=== PATIENT | female | born 1980 | race Caucasian/White ===

== ENCOUNTER → 2022-09-28 | Outpatient (OUT) | payer BC, SELFPAY ==
[2022-09-28 16:23] LABS: Lactate Dehydrogenase 185 U/L (81-234)
[2022-10-07 14:15] LABS: CEA 2.7 ng/mL (0.0-4.7)
== END ==
LOC: LAB 15:48
PROVIDERS: Visit Provider Obstetrics & Gynecology
DX: N83.292 Other ovarian cyst, left side (principal)
CPT/HCPCS: 36415; 82105; 82378; 83615; 84702; 86304

== ENCOUNTER 2022-10-05 16:30 | Outpatient (REF) | payer BC, SELFPAY | END 2022-10-05 16:31 | disposition home or self-care (01) | LOC: LAB 16:30 | PROVIDERS: Visit Provider Obstetrics & Gynecology | DX: N92.0 Excessive and frequent menstruation with regular cycle (principal) | CPT/HCPCS: 88305 ==

== ENCOUNTER 2022-10-19 13:09 | Outpatient (OUT) | payer BC, SELFPAY ==
--- NOTE | 2022-10-19 14:20 | XR_ITS ---
[address] [address] Patient Name: SUAD SULLIVAN MRN: [id number] date: 1980 Sex: F Assigned Patient Location: [facility] Current Patient Location: [facility] Accession/Order Number: [id number] Exam Date: 10/19/2022 14:40 Report Date: 10/19/2022 14:58 At the request of: NOE BLACKMON Procedure: XR chest 2V EXAM: XR chest 2V HISTORY: pre op exam COMPARISON: 08/24/2016 TECHNIQUE: Upright PA and lateral chest x-ray FINDINGS: The heart is near the upper limits of normal in size. No acute infiltrate, effusion or pneumothorax is identified. Mild degenerative changes are seen in the spine. IMPRESSION: No acute infiltrate or evidence of cardiac decompensation. The overall appearance of the chest is unchanged. Electronically authenticated by: TYRON FISHMAN Date: 10/19/2022 14:58
--- NOTE | 2022-10-19 14:20 | ECG_ITS ---
The [facility] Test Date: 2022-10-19 Pat Name: Samara Omer Department: Room: - Gender: Female Rn Mental Health: : 1980 Requested By: NOE BLACKMON Order Number: [id number] Reading MD: KAYA DELATORRE Measurements Intervals [place] Rate: 64 P: 35 OK: 200 QRS: 21 QRSD: 97 T: 11 QT: 387 QTc: 402 Interpretive Statements SINUS RHYTHM Low voltage across the precordium No previous ECG available for comparison Electronically Signed On 10-20-2022 7:02:35 EDT by KAYA DELATORRE
[2022-10-19 14:41] LABS: Basophils Percent Auto 0.5 % (0.2-2.0); Eosinophils Absolute Auto 0.2 10^3/uL (0.0-0.7); Eosinophils Percent Auto 1.7 % (0.9-7.0); Hematocrit 38.2 % (36.0-48.0); Hemoglobin 12.5 g/dL (12.0-16.0); Immature Granulocytes Abs Auto 0.03 10^3/uL (0.00-0.03); Immature Granulocytes Pct Auto 0.3 % (0.0-0.5); Lymphocytes Absolute Auto 3.1 10^3/uL (1.2-3.8); Lymphocytes Percent Auto 35.2 % (20.5-60.0); Mean Corpuscular HGB Conc 32.7 g/dL (29.9-35.2); Mean Corpuscular Hemoglobin 26.7 pg (26.7-34.0); Mean Corpuscular Volume 81.6 fL (81.0-99.0); Monocytes Absolute Auto 0.5 10^3/uL (0.3-0.8); Monocytes Percent Auto 5.7 % (1.7-12.0); Neutrophils Percent Auto 56.6 % (43.0-75.0); Platelet Count 322 10^3/uL (150-450); Red Blood Count 4.68 10^6/uL (4.20-5.40); White Blood Count 8.9 10^3/uL (4.0-11.0)
[2022-10-19 15:02] LABS: Alanine Aminotransferase 30 U/L (14-59); Albumin Globulin Ratio 0.9; Albumin Level 3.7 g/dL (3.4-5.0); Alkaline Phosphatase 109 U/L (46-116); Aspartate Amino Transferase 17 U/L (15-37); BUN Creatinine Ratio 18.6; Bilirubin Direct <0.1 mg/dL (0.0-0.2); Bilirubin Total 0.2 mg/dL (0.2-1.0); Calcium 9.3 mg/dL (8.5-10.1); Carbon Dioxide 28.5 mmol/L (21.0-32.0); Chloride 103 mmol/L (98-107); Estimated GFR (African America >60 (>=60); Estimated GFR (Non-African Ame >60 (>=60); Globulin 4.2 g/dL; Glucose 113 mg/dL (74-106); Potassium 4.5 mmol/L (3.5-5.1); Sodium 138 mmol/L (136-145); Total Protein 7.9 g/dL (6.4-8.2)
[2022-10-19 15:21] LABS: Partial Thromboplastin Time 30.5 sec (22.3-36.2); Prothrombin Time 9.7 sec (9.0-11.6)
[2022-10-19 15:33] LABS: INR <0.93
== END 2022-10-19 13:10 | disposition home or self-care (01) ==
LOC: PST 13:09
PROVIDERS: Obstetrics & Gynecology
DX: Z01.812 Encounter for preprocedural laboratory examination (principal); Z01.810 Encounter for preprocedural cardiovascular examination; Z01.811 Encounter for preprocedural respiratory examination; N92.1 Excessive and frequent menstruation with irregular cycle; R10.2 Pelvic and perineal pain; N94.10 Unspecified dyspareunia; N94.6 Dysmenorrhea, unspecified
CPT/HCPCS: 36415; 71046; 80048; 80076; 85025; 85610; 85730; 93005

== ENCOUNTER 2022-10-28 12:21 | Inpatient (IN) | payer BC, SELFPAY ==
[2022-10-19 13:45] VITALS: PULSE 74; TEMP 36.8; O2SAT 97; BMI 51.4
[2022-10-28] VITALS (12 sets, daily range): BP systolic 93–140; BP diastolic 51–80; PULSE 75–93; RESP 18–28; TEMP 36.3–36.6; O2SAT 80–98; BMI 51.4; BMI 51.9
[2022-10-28 09:47] LABS: Basophils Percent Auto 0.3 % (0.2-2.0); Eosinophils Absolute Auto 0.1 10^3/uL (0.0-0.7); Eosinophils Percent Auto 1.1 % (0.9-7.0); Hematocrit 38.8 % (36.0-48.0); Hemoglobin 12.6 g/dL (12.0-16.0); Immature Granulocytes Abs Auto 0.02 10^3/uL (0.00-0.03); Immature Granulocytes Pct Auto 0.2 % (0.0-0.5); Lymphocytes Absolute Auto 3.4 10^3/uL (1.2-3.8); Lymphocytes Percent Auto 32.9 % (20.5-60.0); Mean Corpuscular HGB Conc 32.5 g/dL (29.9-35.2); Mean Corpuscular Hemoglobin 26.6 pg (26.7-34.0); Mean Corpuscular Volume 81.9 fL (81.0-99.0); Mean Platelet Volume 9.1 fL (9.5-13.5); Monocytes Absolute Auto 0.6 10^3/uL (0.3-0.8); Monocytes Percent Auto 5.8 % (1.7-12.0); Neutrophils Absolute Auto 6.2 10^3/uL (1.4-6.5); Neutrophils Percent Auto 59.7 % (43.0-75.0); Platelet Count 332 10^3/uL (150-450); Red Blood Count 4.74 10^6/uL (4.20-5.40); Red Cell Distribution Width 14.3 % (11.0-15.0); White Blood Count 10.4 10^3/uL (4.0-11.0)
[2022-10-28 10:09] LABS: HCG Quantitative <1 mIU/mL
[2022-10-28] MEDS: LACTATED RINGER'S SOLUTION 1,000 ML 50 ML IV (10:23)
[2022-10-28] MEDS: SCOPOLAMINE 1 EACH PATCH.TD.3 1 PATCH TD (10:41)
[2022-10-28] MEDS: CEFAZOLIN SODIUM/DEXTROSE,ISO 2 GM/50 ML PIGGYBACK IV ×3 (11:02→23:37)
--- NOTE | 2022-10-28 12:45 | PC.NURSE ---
ROBOT ASSISTED LAPROSCOPIC HYSTERECTOMY CHANGED TO AN OPEN HYSTERECTOMY. DR BLACKMON WENT OUT TO UPDATE FAMILY. INCISIONS WAS MADE AT 1221 PM.
[2022-10-28] MEDS: LACTATED RINGER'S SOLUTION 1,000 ML 1000 ML IV ×2 (13:31→14:55)
--- NOTE | 2022-10-28 15:45 | PC.NURSE ---
pt's O2 decreased to 3L at this time
[2022-10-28] MEDS: LACTATED RINGER'S SOLUTION 1,000 ML 125 ML IV ×2 (15:52→23:37)
[2022-10-28] MEDS: SIMETHICONE 80 MG TAB.CHEW PO (17:19)
[2022-10-28] MEDS: PROMETHAZINE HCL 25 MG/ML VIAL 12.5 MG IV (17:19)
--- NOTE | 2022-10-28 21:18 | RESP.RT ---
Sp02 98% on 1L nasal cannula, placed pt on room air at this time
[2022-10-28] MEDS: KETOROLAC TROMETHAMINE 30 MG/ML VIAL IVP (21:44)
[2022-10-28] MEDS: DOCUSATE SODIUM 100 MG CAPSULE PO (23:36)
[2022-10-28] MEDS: TEMAZEPAM 15 MG CAPSULE 30 MG PO (23:38)
[2022-10-29 04:30] VITALS: O2SAT 94
[2022-10-29 04:35] VITALS: BP 126/64; PULSE 79; RESP 16; TEMP 36.4; O2SAT 90
[2022-10-29 05:32] LABS: Basophils Percent Auto 0.2 % (0.2-2.0); Hematocrit 32.1 % (36.0-48.0); Hemoglobin 10.4 g/dL (12.0-16.0); Immature Granulocytes Abs Auto 0.05 10^3/uL (0.00-0.03); Immature Granulocytes Pct Auto 0.4 % (0.0-0.5); Lymphocytes Absolute Auto 2.2 10^3/uL (1.2-3.8); Lymphocytes Percent Auto 17.7 % (20.5-60.0); Mean Corpuscular HGB Conc 32.4 g/dL (29.9-35.2); Mean Corpuscular Hemoglobin 26.6 pg (26.7-34.0); Mean Corpuscular Volume 82.1 fL (81.0-99.0); Mean Platelet Volume 9.7 fL (9.5-13.5); Monocytes Absolute Auto 0.9 10^3/uL (0.3-0.8); Monocytes Percent Auto 7.3 % (1.7-12.0); Neutrophils Absolute Auto 9.2 10^3/uL (1.4-6.5); Neutrophils Percent Auto 74.4 % (43.0-75.0); Platelet Count 328 10^3/uL (150-450); Red Blood Count 3.91 10^6/uL (4.20-5.40); Red Cell Distribution Width 14.6 % (11.0-15.0); White Blood Count 12.4 10^3/uL (4.0-11.0)
[2022-10-29 05:52] LABS: Estimated GFR (African America >60 (>=60); Estimated GFR (Non-African Ame >60 (>=60)
[2022-10-29] MEDS: MAGNESIUM HYDROXIDE 2,400 MG/10 ML ORAL.SUSP 2400 MG PO (09:25)
[2022-10-29] MEDS: SIMETHICONE 80 MG TAB.CHEW PO (09:25)
[2022-10-29] MEDS: IBUPROFEN 400 MG TABLET 800 MG PO ×2 (09:25→16:47)
[2022-10-29 10:26] VITALS: O2SAT 95
--- NOTE | 2022-10-29 13:59 | PM.ONB ---
Brief Operative Note Date of procedure: 10/29/22 Pre-op diagnosis: enlarged uterus, uterine fibroids, extensive endometriosis Post-op diagnosis: same Procedure: DOMINIC BSO WITH CYSTOSCOPY PROCEDURE: Patient was taken back to the Operating Room where she was given general anesthesia without difficulty. She was then prepped and draped in the normal sterile fashion. A Pfannenstiel skin incision was then made 2 cm above the symphysis and pubis and carried down to underlying rectus fascia using a Bovie. The fascia was incised in the midline and extended bilaterally using Ramírez scissors. Two Antonio clamps were placed on the superior aspect of the fascia and dissected off the underlying rectus muscle. The same was performed on the inferior aspect as well. The muscle was then in the midline. The peritoneum was identified and entered bluntly. Peritoneum was then extended superiorly and inferiorly with good visualization of the bladder. An O'Moxqrzmo-Y-Fbwyxb retractor was placed into the patient's abdomen. The bowel was packed away with moist laparotomy sponges and the bladder blade was inserted. A Leahey tenaculum was placed on the patient's uterus and used for retraction. LigaSure apparatus was then used to come across the uteroovarian ligament on the patient's right side which was then cauterized and transected. This was carried down serially through the broad ligament and across the round ligament. The bladder flap was then created using the Metzenbaum scissors, and the bladder was easily dissected off the patient's lower uterine segment. A curved Heena was placed across the uterine artery on the right side which was clamped, transected, and suture ligated using #0 Monocryl. This was performed on the contralateral side as well. The bladder was further dissected and a Zeppelin clamp was then placed across the uterosacral and cardinal ligaments. This was transected and suture ligated using #0 Monocryl. This was performed on the contralateral side as well. The uterus was then amputated using Jorgensonscissors. The patient's cuff was closed using #0 PDS in a running locked fashion and this was transfixed to the ipsilateral uterosacral and cardinal ligaments. Excellent hemostasis was assured. The patient's abdomen was copiously irrigated using warm saline. Cystoscopy was performed. Bladder was intact. Efflux was noted from both ostia. Cystoscope was removed. After excellent hemostasis was assured, all instruments were removed from the patient's abdomen. The patient's peritoneum was closed using 3-0 Vicryl in a running fashion. The patient's fascia was closed using #0 Vicryl in a running fashion. The patient's skin was closed using scott. The patient tolerated the procedure well. Sponge, lap, and needle counts were correct times two. Patient taken to the Recovery Room in stable condition. please note robotic hysterectomy was attempted and aborted dt size of uterus and extensive endometriosis with adhesions Surgeon: Markus Vega [employer] Associate: Tish Alicia Estimated blood loss (mL): 700 Pathology: other (uterus and cervix) Condition: stable Disposition: PACU
--- NOTE | 2022-11-02 16:11 | CM.DCFOLLOWU ---
Person spoke with: patient How are you feeling? good How is your pain? pain under control Did you understand your discharge instructions? yes Do you have any questions about your discharge instructions? no Were you given any prescriptions at discharge? yes Were you able to get your prescriptions filled? yes Do you understand how to take your medications as ordered? yes Do you have any questions about your follow up appointment and do you plan to keep your follow up appointment? follow up scheduled for TuesdayNovember 08 Is there anything else that you would like to discuss? no Questions/Comments/Concerns/Other: Only concern was she was not able to get her pain meds for about an hour due to a chart mix up.
--- NOTE | 2022-11-03 07:34 | PC.NURSE ---
PATIENT HAD A 16 [address] JAIMES CATHETER INSERTED AT THE BEGINNING OF THE CASE. PATIENT HAD CATHETER IN PLACE UPON LEAVING THE OR PER SURGEONS ORDERS.
--- NOTE | 2022-11-19 | DS_ITS ---
DISCHARGE DATE: ??11/19/2022 PRIMARY DIAGNOSES: 1.? Enlarged uterus. 2.? Uterine fibroids. 3.? Extensive endometriosis. PROCEDURE:? Total abdominal hysterectomy with bilateral salpingo-oophorectomy with cystoscopy. HOSPITAL COURSE:? As expected.? Please see chart for full details.? LABORATORY DATA:? Please see chart. COMPLICATIONS:? None. DISCHARGE CONDITION:? Stable. CONSULTATION:? Anesthesia. DISCHARGE INSTRUCTIONS: 1.? Diet:? Regular. 2.? Medications: a.? Percocet 5/325 one to two p.o. every 4-6 hours p.r.n. pain. b.? Motrin 800 one p.o. every 8 hours p.r.n. pain. 3.? Followup in one week. Restrictions:? Pelvic rest for 6 weeks.? No heavy lifting.? May drive when pain free and no longer on narcotics. [facility]
== END 2022-10-29 17:30 | disposition home or self-care (01) | DRG 742 ==
LOC: MS 10-29 14:20 → SURGOUT 11-02 08:48 → MS 11-02 08:48
PROVIDERS: Admitting Provider Obstetrics & Gynecology; Visit Provider Obstetrics & Gynecology
PROC: 0UT90ZZ Resection of Uterus, Open Approach (ICD-10-PCS; principal; 2022-10-28 11:00)
DX: D25.9 Leiomyoma of uterus, unspecified (principal); Z68.43 Body mass index [BMI] 50.0-59.9, adult; N80.9 Endometriosis, unspecified; Z98.51 Tubal ligation status; Z98.890 Other specified postprocedural states; Z99.89 Dependence on other enabling machines and devices; J40 Bronchitis, not specified as acute or chronic; I10 Essential (primary) hypertension; G54.0 Brachial plexus disorders; G62.9 Polyneuropathy, unspecified; I73.9 Peripheral vascular disease, unspecified; K21.9 Gastro-esophageal reflux disease without esophagitis; E66.01 Morbid (severe) obesity due to excess calories; D64.9 Anemia, unspecified; F32.A Depression, unspecified; F41.9 Anxiety disorder, unspecified; N92.1 Excessive and frequent menstruation with irregular cycle; N94.10 Unspecified dyspareunia; N94.6 Dysmenorrhea, unspecified; R10.2 Pelvic and perineal pain; Z83.3 Family history of diabetes mellitus; Z80.9 Family history of malignant neoplasm, unspecified; Z82.49 Family history of ischemic heart disease and other diseases of the circulatory system; Z87.891 Personal history of nicotine dependence; Z88.8 Allergy status to other drugs, medicaments and biological substances; Z79.1 Long term (current) use of non-steroidal anti-inflammatories (NSAID); Z79.899 Other long term (current) drug therapy; Z86.16 Personal history of COVID-19
CPT/HCPCS: 36415; 82565; 84520; 84702; 85025; 86850; 86900; 86901; 88307; 94667; 94761; J1170; J2704

== ENCOUNTER 2023-01-05 08:36 | Outpatient (OUT) | payer BC, SELFPAY | END 2023-01-05 08:37 | disposition home or self-care (01) | LOC: LAB 08:36 | PROVIDERS: Visit Provider Obstetrics & Gynecology | DX: N83.292 Other ovarian cyst, left side (principal) | CPT/HCPCS: 36415; 82105; 82378; 84702; 86304 ==

== ENCOUNTER 2023-02-09 12:22 | Emergency (ER) | payer BC, SELFPAY ==
[2023-02-09 12:28] VITALS: BP 178/92; PULSE 79; RESP 18; TEMP 36.6; O2SAT 98; BMI 52.3
--- NOTE | 2023-02-09 12:38 | CT_ITS ---
The [address] [address] Patient Name: SUAD SULLIVAN MRN: [facility]:[id number] date: 1980 Sex: F Assigned Patient Location: ER Current Patient Location: ER Accession/Order Number: [id number] Exam Date: 02/09/2023 12:57 Report Date: 02/09/2023 13:27 At the request of: ROMAINE PATRICIO Procedure: CT abdomen pelvis w con EXAM: CT abdomen pelvis w con HISTORY: mid abd pain since hysterectomy in October COMPARISON: None. TECHNIQUE: Following the intravenous administration of 100 mL of Optiray 300, axial soft tissue windows of the abdomen and pelvis were performed with coronal and sagittal reformats. CT dose reduction technique was used including Automated Exposure Control. Findings: Abdomen: There is fatty infiltration of the liver. Within segment 4 there is a 2.0 cm ill-defined low-attenuation lesion. The gallbladder, spleen, pancreas, adrenal glands and kidneys are unremarkable. The bilateral ureters are nondilated. Evaluation of the bowel is limited given the absence of oral contrast. No bowel obstruction. The appendix is nondilated. The aorta is normal caliber. No enlarged abdominal lymph nodes or free abdominal fluid. Pelvis: Moderate to large knee fat-containing hypogastric ventral hernia containing nonobstructed small bowel. Unremarkable bladder. The uterus is surgically absent. Within the left adnexa there is a complex cystic 3.3 x 4.1 cm cystic lesion with subtle adjacent stranding of the fat. No enlarged pelvic lymph nodes or free pelvic fluid. No aggressive sclerotic or lytic osseous lesions. There is mild multilevel degenerative spondylosis with more moderate L5-S1 degenerative disc disease. CT/CT abdomen pelvis w con IMPRESSION: 1. Complex cystic left adnexal lesion may relate to an ovarian hemorrhagic cyst. However, there is subtle adjacent stranding of the fat. If there is clinical concern for ovarian abscess, suggest ultrasound for further evaluation. 2. Fatty infiltration of the liver. 3. Moderate to large ventral hernia. Electronically authenticated by: DENYS SEE Date: 02/09/2023 13:27
--- NOTE | 2023-02-09 12:41 | ED.ABDPAIN1 ---
HPI - Abdominal Pain General Chief Complaint: Abdominal Pain Stated Complaint: ABDOMINAL PAIN/ POSTOPERATIVE COMPLICATIONS Time Seen by Provider: 02/09/23 12:29 Source: patient Mode of arrival: walk-in Limitations: no limitations History of Present Illness HPI narrative: 43-year-old female presents for abdominal pain. It's just above her umbilicus and below her surgical scar and she's had it since October, three months ago when she had her hysterectomy. She saw her CIGAR PACKER about this issue and he sent her here. No fever vomiting or constipation but she's been nauseous. It is continuous and she states it does not feel like a muscle. Related Data Home Medications Medication Instructions Recorded Confirmed albuterol 90 mcg/actuation aerosol mcg inhalation 10/19/22 inhaler amlodipine 10 mg tablet 10 mg PO QDAY 10/19/22 10/28/22 atenolol 25 mg tablet 25 mg PO Q24H 10/19/22 10/28/22 buspirone 15 mg tablet 15 mg PO TID 10/19/22 10/28/22 cyclobenzaprine 10 mg tablet 10 mg PO QPM 10/19/22 10/19/22 duloxetine 60 mg capsule,delayed 120 mg PO QAM 10/19/22 10/28/22 release gabapentin 400 mg capsule 400 mg PO TID 10/19/22 10/28/22 hydroxyzine HCl 25 mg tablet 25 mg PO Q8H PRN anxiety 10/19/22 10/19/22 ibuprofen 800 mg tablet 800 mg PO Q8H 10/19/22 10/19/22 pantoprazole 40 mg tablet,delayed 40 mg PO QAM 10/19/22 10/28/22 release Previous Rx's Medication Instructions Recorded ibuprofen 800 mg tablet 800 mg PO Q8H PRN pain 14 days #40 10/29/22 tabs metronidazole 500 mg tablet 500 mg PO BID 7 days #14 tabs 10/29/22 oxycodone-acetaminophen 5 mg-325 1 tab PO Q6H PRN pain 7 days #28 10/29/22 mg tablet (Percocet) tabs Allergies Allergy/AdvReac Type Severity Reaction Status Date / Time house dust Allergy Severe Swelling Verified 10/19/22 13:33 of Lip/Tongue/Throat lisinopril Allergy Severe Anaphylaxis Verified 10/19/22 13:33 PFSH PFSH Medical History (Updated 02/09/23 @ 13:42 by James Silvestre MD) Abnormal thyroid stimulating hormone (TSH) level ?R79.89 - Other specified abnormal findings of blood chemistry (ICD-10) Anxiety ?F41.9 - Anxiety disorder, unspecified (ICD-10) Asthma ?J45.909 - Unspecified asthma, uncomplicated (ICD-10) Bronchitis ?J40 - Bronchitis, not specified as acute or chronic (ICD-10) COVID-19 (05/08/20) ?U07.1 - COVID-19 (ICD-10) Depression ?F32.A - Depression, unspecified (ICD-10) Dysmenorrhea ?N94.6 - Dysmenorrhea, unspecified (ICD-10) Dyspareunia GERD (gastroesophageal reflux disease) ?K21.9 - Gastro-esophageal reflux disease without esophagitis (ICD-10) Hypertension ?I10 - Essential (primary) hypertension (ICD-10) IBS (irritable bowel syndrome) ?K58.9 - Irritable bowel syndrome without diarrhea (ICD-10) Menorrhagia ?N92.0 - Excessive and frequent menstruation with regular cycle (ICD-10) Neuropathy (2007) ?G62.9 - Polyneuropathy, unspecified (ICD-10) Pelvic pain ?R10.2 - Pelvic and perineal pain (ICD-10) Sinus arrhythmia (2003) ?I49.8 - Other specified cardiac arrhythmias (ICD-10) Sleep disorder ?G47.9 - Sleep disorder, unspecified (ICD-10) Surgical History (Updated 10/19/22 @ 14:03 by Rocío Ferrell) History of bilateral salpingectomy ?Z90.79 - Acquired absence of other genital organ(s) (ICD-10) History of endometrial ablation (04/07/20) ?Z98.890 - Other specified postprocedural states (ICD-10) Family History (Updated 10/19/22 @ 13:47 by Rocío Ferrell) Other Family history of Parkinson disease Family history of breast cancer Family history of diabetes mellitus Family history of emphysema Family history of hypertension Family history of leukemia Family history of lung cancer Family history of myocardial infarction Family history of skin cancer Social History (Updated 10/28/22 @ 09:55 by Minoo Gongora) Within the past year, how often did you have a drink containing alcohol: monthly or less Within the past year, how many standard drinks containing alcohol did you have on a typical day: 1 or 2 Total score: 0 Score interpretation: A score less than 3 is consistent with normal alcohol consumption. Smoking status: Former smoker What tobacco products do you use: cigarettes Pack-years instructions: Please document either packs per day or cigarettes per day in order for pack years to calculate correctly. If using both packs per day and cigarettes per day, please make sure that they denote the same thing. If they differ, pack-years will calculate based on packs per day. 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 General: The patient appears well and in no apparent distress. Patient is resting comfortably on cart. Skin: Warm, dry, no pallor noted. There is no rash noted. Head: Normocephalic, atraumatic Eye: Normal conjunctiva, no drainage Ears, Nose, Mouth, and Throat: oral mucosa is moist. Nares patent. Cardiovascular: Regular Rate and Rhythm Respiratory: Patient is in no distress, no accessory muscle use, lungs are clear to auscultation, no wheezing, rales or rhonchi Back: non-tender GI: soft and nondistended. No masses. Mild tenderness just above the umbilicus Musculoskeletal: The patient has no evidence of calf tenderness, no pitting edema, symmetrical pulses noted bilaterally Neurological: A&O, normal speech Psychiatric: Cooperative Constitutional Vital Signs, click to edit/add: Last Vital Signs Temp 97.8 F 02/09/23 12:28 Pulse 79 02/09/23 12:28 Resp 18 02/09/23 12:28 BP 178/92 H 02/09/23 12:28 Pulse Ox 98 02/09/23 12:28 O2 Del Method Room Air 02/09/23 12:28 Course Vital Signs Vital signs: Vital Signs Temperature 97.8 F 02/09/23 12:28 Pulse Rate 79 02/09/23 12:28 Respiratory Rate 18 02/09/23 12:28 Blood Pressure 178/92 H 02/09/23 12:28 Pulse Oximetry 98 02/09/23 12:28 Oxygen Delivery Method Room Air 02/09/23 12:28 Temperature 97.8 F 02/09/23 12:28 Pulse Rate 79 02/09/23 12:28 Respiratory Rate 18 02/09/23 12:28 Blood Pressure 178/92 H 02/09/23 12:28 Pulse Oximetry 98 02/09/23 12:28 Oxygen Delivery Method Room Air 02/09/23 12:28 MDM - Abdominal Pain MDM Narrative Medical decision making narrative: CAT scan findings are discussed with the patient and Dr. Vega and follow-up is arranged. There is no obstruction or strangulation or incarceration. Differential Diagnosis Differential diagnosis: Likely abdominal pain and other (hernia, incarcerated hernia, strangulated hernia) Lab Data Attestation: I reviewed the patient's lab results. Labs: Lab Results 02/09/23 Range/Units 12:46 WBC 8.8 (4.0-11.0) 10^3/uL RBC 4.82 (4.20-5.40) 10^6/uL Hgb 12.9 (12.0-16.0) g/dL Hct 39.9 (36.0-48.0) % MCV 82.8 (81.0-99.0) fL MCH 26.8 (26.7-34.0) pg MCHC 32.3 (29.9-35.2) g/dL RDW 13.8 (11.0-15.0) % Plt Count 361 (150-450) 10^3/uL MPV 9.5 (9.5-13.5) fL Neut % (Auto) 62.1 (43.0-75.0) % Lymph % (Auto) 30.3 (20.5-60.0) % [place] % (Auto) 4.8 (1.7-12.0) % Eos % (Auto) 1.8 (0.9-7.0) % Baso % (Auto) 0.5 (0.2-2.0) % Neut # (Auto) 5.5 (1.4-6.5) 10^3/uL Lymph # (Auto) 2.7 (1.2-3.8) 10^3/uL [place] # (Auto) 0.4 (0.3-0.8) 10^3/uL Eos # (Auto) 0.2 (0.0-0.7) 10^3/uL Baso # (Auto) 0.0 (0.0-0.1) 10^3/uL Abs Immat Gran (auto) 0.04 H (0.00-0.03) 10^3/uL Imm/Tot Granulo (auto) 0.5 (0.0-0.5) % Sodium 137 (136-145) mmol/L Potassium 3.8 (3.5-5.1) mmol/L Chloride 101 (98-107) mmol/L Carbon Dioxide 25.9 (21.0-32.0) mmol/L Anion Gap 13.9 BUN 11.0 (7.0-18.0) mg/dL Creatinine 0.71 (0.55-1.02) mg/dL Est GFR ( Amer) >60 (>=60) Est GFR (Non-Af Amer) >60 (>=60) BUN/Creatinine Ratio 15.5 Glucose 145 H (74-106) mg/dL Calcium 9.1 (8.5-10.1) mg/dL Imaging Data CT scan - abdomen: Radiologist's impression: Procedure: CT abdomen pelvis w con EXAM: CT abdomen pelvis w con HISTORY: mid abd pain since hysterectomy in October COMPARISON: None. TECHNIQUE: Following the intravenous administration of 100 mL of Optiray 300, axial soft tissue windows of the abdomen and pelvis were performed with coronal and sagittal reformats. CT dose reduction technique was used including Automated Exposure Control. Findings: Abdomen: There is fatty infiltration of the liver. Within segment 4 there is a 2.0 cm ill-defined low-attenuation lesion. The gallbladder, spleen, pancreas, adrenal glands and kidneys are unremarkable. The bilateral ureters are nondilated. Evaluation of the bowel is limited given the absence of oral contrast. No bowel obstruction. The appendix is nondilated. The aorta is normal caliber. No enlarged abdominal lymph nodes or free abdominal fluid. Pelvis: Moderate to large knee fat-containing hypogastric ventral hernia containing nonobstructed small bowel. Unremarkable bladder. The uterus is surgically absent. Within the left adnexa there is a complex cystic 3.3 x 4.1 cm cystic lesion with subtle adjacent stranding of the fat. No enlarged pelvic lymph nodes or free pelvic fluid. No aggressive sclerotic or lytic osseous lesions. There is mild multilevel degenerative spondylosis with more moderate L5-S1 degenerative disc disease. IMPRESSION: 1. Complex cystic left adnexal lesion may relate to an ovarian hemorrhagic cyst. However, there is subtle adjacent stranding of the fat. If there is clinical concern for ovarian abscess, suggest ultrasound for further evaluation. 2. Fatty infiltration of the liver. 3. Moderate to large ventral hernia. Electronically authenticated by: DENYS SEE Date: 02/09/2023 13:27 Discharge Plan Discharge Chief Complaint: Abdominal Pain Clinical Impression: Ventral hernia Patient Disposition: Home, Self-Care Time of Disposition Decision: 13:42 Condition: Good Mode of Transportation: Private Vehicle Prescriptions / Home Meds: No Action amlodipine 10 mg tablet 10 mg PO QDAY atenolol 25 mg tablet 25 mg PO Q24H buspirone 15 mg tablet 15 mg PO TID cyclobenzaprine 10 mg tablet 10 mg PO QPM duloxetine 60 mg capsule,delayed release(DR/EC) 120 mg PO QAM gabapentin 400 mg capsule 400 mg PO TID hydroxyzine HCl 25 mg tablet 25 mg PO Q8H PRN (Reason: anxiety) ibuprofen 800 mg tablet 800 mg PO Q8H pantoprazole 40 mg tablet,delayed release (DR/EC) 40 mg PO QAM albuterol 90 mcg/actuation aerosol inhalation ibuprofen 800 mg tablet 800 mg PO Q8H PRN (Reason: pain) 14 Days Qty: 40 0RF oxycodone-acetaminophen [Percocet] 5-325 mg tablet 1 tab PO Q6H PRN (Reason: pain) 7 Days Qty: 28 0RF metronidazole 500 mg tablet 500 mg PO BID 7 Days Qty: 14 0RF Instructions: Ventral Hernia Repair (DC) Stand Alone Forms: Portal Instructions Referrals: Physician,Non-Staff, MD [Primary Care Provider] - 1 week
[2023-02-09 13:03] LABS: Basophils Percent Auto 0.5 % (0.2-2.0); Eosinophils Absolute Auto 0.2 10^3/uL (0.0-0.7); Eosinophils Percent Auto 1.8 % (0.9-7.0); Hematocrit 39.9 % (36.0-48.0); Hemoglobin 12.9 g/dL (12.0-16.0); Immature Granulocytes Abs Auto 0.04 10^3/uL (0.00-0.03); Immature Granulocytes Pct Auto 0.5 % (0.0-0.5); Lymphocytes Absolute Auto 2.7 10^3/uL (1.2-3.8); Lymphocytes Percent Auto 30.3 % (20.5-60.0); Mean Corpuscular HGB Conc 32.3 g/dL (29.9-35.2); Mean Corpuscular Hemoglobin 26.8 pg (26.7-34.0); Mean Corpuscular Volume 82.8 fL (81.0-99.0); Mean Platelet Volume 9.5 fL (9.5-13.5); Monocytes Absolute Auto 0.4 10^3/uL (0.3-0.8); Monocytes Percent Auto 4.8 % (1.7-12.0); Neutrophils Absolute Auto 5.5 10^3/uL (1.4-6.5); Neutrophils Percent Auto 62.1 % (43.0-75.0); Platelet Count 361 10^3/uL (150-450); Red Blood Count 4.82 10^6/uL (4.20-5.40); Red Cell Distribution Width 13.8 % (11.0-15.0); White Blood Count 8.8 10^3/uL (4.0-11.0)
[2023-02-09 13:13] LABS: Anion Gap 13.9; BUN Creatinine Ratio 15.5; Calcium 9.1 mg/dL (8.5-10.1); Carbon Dioxide 25.9 mmol/L (21.0-32.0); Chloride 101 mmol/L (98-107); Estimated GFR (African America >60 (>=60); Estimated GFR (Non-African Ame >60 (>=60); Glucose 145 mg/dL (74-106); Potassium 3.8 mmol/L (3.5-5.1); Sodium 137 mmol/L (136-145)
== END 2023-02-09 14:08 | disposition home or self-care (01) ==
PROVIDERS: Emergency Provider Emergency Medicine
DX: K43.9 Ventral hernia without obstruction or gangrene (principal); F41.9 Anxiety disorder, unspecified; J45.909 Unspecified asthma, uncomplicated; F32.A Depression, unspecified; K21.9 Gastro-esophageal reflux disease without esophagitis; I10 Essential (primary) hypertension; K58.9 Irritable bowel syndrome, unspecified; G62.9 Polyneuropathy, unspecified; G47.9 Sleep disorder, unspecified; Z86.16 Personal history of COVID-19; Z90.79 Acquired absence of other genital organ(s); Z90.710 Acquired absence of both cervix and uterus; Z79.899 Other long term (current) drug therapy; Z87.891 Personal history of nicotine dependence
CPT/HCPCS: 36415; 74177; 80048; 85025; 99285; Q9967

== ENCOUNTER 2024-09-13 17:48 | Emergency (ER) | payer BC, SELFPAY ==
--- OUTSIDE RECORDS SUMMARY | 2024-09-11 14:24 | XMS_ITS ---
Author Name Auto Generated Organization [facility] Care Team Providers Care Engineer Station Mainline Name Role Phone NOE BLACKMON Attending Unavailable PROBLEMS No Problem Records Found PROCEDURES No Procedure Records Found RESULTS No Result Records Found ALLERGIES No Allergies Records Found ENCOUNTERS ADMIT/DISCHARGE ACCOUNT NUMBER ADMITTING ENCOUNTER CLASS LOCATION SOURCE 09/11/2024/ 5 [id number] Ambulatory Building:[facility] EPIC PAYERS ENCOUNTER GUARANTOR PAYER SUBSCRIBER SOURCE 09/11/2024 SUAD SLANEDOB: [place] [address]Kic: (HP) (WP) Primary Insurance:Re-vinyl licy Number: [id number] ffective Date:2021-12-29 EDUARDO SLANEDOB: [id number] [place] [address] [facility] EPIC
[2024-09-13 18:10] VITALS: BP 147/82; PULSE 68; TEMP 37; O2SAT 96; BMI 51.4
--- NOTE | 2024-09-13 19:44 | XR_ITS ---
The [address] [address] Patient Name: SUAD SULLIVAN MRN: [id number] date: 1980 Sex: F Assigned Patient Location: ED.MAIN Current Patient Location: ED.MAIN Accession/Order Number: [id number] Exam Date: 09/13/2024 20:34 Report Date: 09/13/2024 20:35 At the request of: SONDRA GOLDSTEIN MD Procedure: XR hip LT 2V w/ pelvis 2 views left hip a single view pelvis and HISTORY: Left hip pain Comparison none Adequate alignment. No acute displaced fracture. Bilateral greater trochanter spurring. Adequate hip joint space. No AVN. Unremarkable soft tissues XR/XR hip LT 2V w/ pelvis IMPRESSION: Adequate hips. Greater trochanter spurring. Impression dictated by: Juan Forbes M.D. 09/13/2024 8:35 PM Dictation Location: [place] [address] Electronically authenticated by: [id number] Y Date: 09/13/2024 20:35
--- NOTE | 2024-09-13 20:07 | ED.EXTPRO1 ---
HPI - Extremity Problem General Chief complaint: Extremity Problem, Nontraumatic Stated complaint: Ba Pain Time Seen by Provider: 09/13/24 19:44 Source: patient Mode of arrival: walk-in Limitations: no limitations History of Present Illness HPI Narrative: This 44-year-old female with a history of arthritis that was diagnosed before COVID and she has not had any follow-up for it presents for evaluation of left hip pain/buttock pain area. She states the pain started on Tuesday after waking from sleep. She denies any injury. She has no weakness numbness or tingling but states that she is having trouble walking up the stairs due to the pain in the left hip. She denies any loss of bowel or bladder control. She has no calf pain or swelling. She uses 800 mg Motrin for her arthritis. She is not on control. She does not smoke. She is not having any chest pain or shortness of breath. She points to the piriformis area as area of greatest pain. She states the pain wraps around in her inguinal area. Related Data Home Medications ?Medication ?Instructions ?Recorded ?Confirmed albuterol 90 mcg/actuation aerosol mcg inhalation 10/19/22 inhaler amlodipine 10 mg tablet 10 mg PO QDAY 10/19/22 09/13/24 atenolol 25 mg tablet 25 mg PO Q24H 10/19/22 09/13/24 cyclobenzaprine 10 mg tablet 10 mg PO QPM 10/19/22 09/13/24 duloxetine 60 mg capsule,delayed 120 mg PO QAM 10/19/22 09/13/24 release ibuprofen 800 mg tablet 800 mg PO Q8H 10/19/22 09/13/24 pantoprazole 40 mg tablet,delayed 40 mg PO QAM 10/19/22 09/13/24 release Allergies Allergy/AdvReac Type Severity Reaction Status Date / Time house dust Allergy Severe Swelling Verified 09/13/24 18:07 of Lip/Tongue/Throat lisinopril Allergy Severe Anaphylaxis Verified 09/13/24 18:07 Review of Systems ROS Status of ROS 10 or more systems reviewed and unremarkable except as noted in history and below [facility] Medical History (Updated 09/13/24 @ 20:59 by Isabela Montoya MD) COVID-19 (05/08/20) ?U07.1 - COVID-19 (ICD-10) Sleep disorder ?G47.9 - Sleep disorder, unspecified (ICD-10) Depression ?F32.A - Depression, unspecified (ICD-10) Anxiety ?F41.9 - Anxiety disorder, unspecified (ICD-10) Asthma ?J45.909 - Unspecified asthma, uncomplicated (ICD-10) Bronchitis ?J40 - Bronchitis, not specified as acute or chronic (ICD-10) Neuropathy (2007) ?G62.9 - Polyneuropathy, unspecified (ICD-10) Dyspareunia Dysmenorrhea ?N94.6 - Dysmenorrhea, unspecified (ICD-10) Menorrhagia ?N92.0 - Excessive and frequent menstruation with regular cycle (ICD-10) Pelvic pain ?R10.2 - Pelvic and perineal pain (ICD-10) Abnormal thyroid stimulating hormone (TSH) level ?R79.89 - Other specified abnormal findings of blood chemistry (ICD-10) IBS (irritable bowel syndrome) ?K58.9 - Irritable bowel syndrome without diarrhea (ICD-10) GERD (gastroesophageal reflux disease) ?K21.9 - Gastro-esophageal reflux disease without esophagitis (ICD-10) Sinus arrhythmia (2003) ?I49.8 - Other specified cardiac arrhythmias (ICD-10) Hypertension ?I10 - Essential (primary) hypertension (ICD-10) Surgical History (Updated 10/19/22 @ 14:03 by Rocío Ferrell) History of endometrial ablation (04/07/20) ?Z98.890 - Other specified postprocedural states (ICD-10) History of bilateral salpingectomy ?Z90.79 - Acquired absence of other genital organ(s) (ICD-10) Family History (Updated 10/19/22 @ 13:47 by Rocío Ferrell) Other Family history of Parkinson disease Family history of breast cancer Family history of diabetes mellitus Family history of emphysema Family history of hypertension Family history of leukemia Family history of lung cancer Family history of myocardial infarction Family history of skin cancer Social History (Updated 10/28/22 @ 09:55 by Minoo Gongora) Within the past year, how often did you have a drink containing alcohol: monthly or less Within the past year, how many standard drinks containing alcohol did you have on a typical day: 1 or 2 Total score: 0 Score interpretation: A score less than 3 is consistent with normal alcohol consumption. 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 [employer] Highest level of school completed/degree received: some college, no degree Little interest or pleasure in doing things: not at all Feeling down, depressed, or hopeless: not at all Exam Narrative Exam Narrative: Vital signs and Nursing Notes reviewed: Patient is afebrile with a normal pulse, blood pressure is elevated 147/82, she is not hypoxic with pulse ox of 96% on room air General: Awake, alert, oriented, obese female, no respiratory distress she is sitting on the stretcher with her left leg flexed but moves easily about the room without notable difficulty HEENT: Normocephalic atraumatic, mucous membranes are moist and pink, eyes are clear, normal conjunctiva, vision is grossly intact Chest: Lungs are clear to auscultation with good air entry, there is no wheezing rhonchi or rales appreciated no accessory muscle use, patient is speaking in complete sentences-no chest wall tenderness to palpation CVS: Regular rate and rhythm S1-S2, no murmurs rubs or gallops, pulses are brisk and equal bilaterally ABD: Obese, soft, nondistended, nontender, no rebound guarding or rigidity, femoral pulses brisk Extremities: Moving all extremities, no lower extremity tenderness or swelling noted, tenderness to the left buttock area and piriformis area, palpation of this area reproduces the patient's pain. There is no redness, swelling or notable abnormality in this area. There is no calf swelling or tenderness. Feet are warm and sensate. Calf sizes are equal. Skin: Normal in appearance without rash,pallor, petechiae or purpura Neuro: No focal deficits, no saddle anesthesia, upper and lower extremity reflexes are brisk and equal bilaterally Constitutional Vital Signs, click to edit/add: Last Vital Signs Temp 98.6 F 09/13/24 18:10 Pulse 68 09/13/24 18:10 Resp 18 09/13/24 18:10 BP 147/82 H 09/13/24 18:10 Pulse Ox 96 09/13/24 18:10 O2 Del Method Room Air 09/13/24 18:10 Course Vital Signs Vital signs: Vital Signs Temperature 98.6 F 09/13/24 18:10 Pulse Rate 68 09/13/24 18:10 Respiratory Rate 18 09/13/24 18:10 Blood Pressure 147/82 H 09/13/24 18:10 Pulse Oximetry 96 09/13/24 18:10 Oxygen Delivery Method Room Air 09/13/24 18:10 Temperature 98.6 F 09/13/24 18:10 Pulse Rate 68 09/13/24 18:10 Respiratory Rate 18 09/13/24 18:10 Blood Pressure 147/82 H 09/13/24 18:10 Pulse Oximetry 96 09/13/24 18:10 Oxygen Delivery Method Room Air 09/13/24 18:10 MDM - Extremity (Nontraumatic) MDM Narrative Medical decision making narrative: This 44-year-old female presents for evaluation of left hip pain. She points to the piriformis area as area of greatest pain. The pain wraps around to her inguinal area and she states she is having muscle spasms around the back of her leg. She does not have any calf pain or tenderness. She is not on control. She does not smoke. Wells criteria was considered but I do not suspect she has a DVT. She does have a history of osteoarthritis and is on 800 mg of ibuprofen daily and also takes Flexeril. She has full range of motion of the extremity but pain with palpation of the buttock area. Femoral pulses are brisk and equal. Reflexes are normal. There is no saddle anesthesia or urinary symptoms. X-ray of the left hip shows some spurring of the greater trochanters but otherwise is normal. She was medicated with a dose of Solu-Medrol and Toradol in the emergency department as she is driving. Symptoms are clinically consistent with sciatica/piriformis syndrome. I gave her suggestions for stretching and positioning to help relieve this pain. She was discharged home with a prescription for [place] to use over the course of the next several days with recommendation for close follow-up with her family physician. Discharge Plan Discharge Chief Complaint: Extremity Problem, Nontraumatic Clinical Impression: Acute pain of left hip, Sciatica of left side Patient Disposition: Home, Self-Care Time of Disposition Decision: 20:59 Condition: Good Prescriptions / Home Meds: No Action amlodipine 10 mg tablet 10 mg PO QDAY atenolol 25 mg tablet 25 mg PO Q24H cyclobenzaprine 10 mg tablet 10 mg PO QPM duloxetine 60 mg capsule,delayed release(DR/EC) 120 mg PO QAM ibuprofen 800 mg tablet 800 mg PO Q8H pantoprazole 40 mg tablet,delayed release (DR/EC) 40 mg PO QAM albuterol 90 mcg/actuation aerosol inhalation Print Language: Nepali Instructions: Sciatica (ED), Hip Pain (ED) Referrals: Mars Sow MD [Primary Care Provider] - 1 week
--- NOTE | 2024-09-13 20:13 | PC.NURSE ---
complains of left hip pain onset Tuesday09/10/24, when she got out of bed. this patient deneis any recent falls, injury or trauma to cause this left hip pain. this patient said I do have arthritis in that hip
[2024-09-13] MEDS: METHYLPREDNISOLONE SOD SUCC PF 125 MG/2 ML VIAL IM (20:20)
[2024-09-13] MEDS: KETOROLAC TROMETHAMINE 30 MG/ML VIAL IM (20:20)
--- NOTE | 2024-09-13 21:09 | PC.NURSE ---
i gave this patient verbal and written discharge orders along with 1 Rx and this patient voices yes to understanding these. at time of discharge this patient voices no concerns and shows no sign of distress
== END 2024-09-13 21:10 | disposition home or self-care (01) ==
PROVIDERS: Emergency Provider Emergency Medicine; PCP Internal Medicine
DX: M25.552 Pain in left hip (principal); M54.32 Sciatica, left side; Z87.891 Personal history of nicotine dependence; M19.90 Unspecified osteoarthritis, unspecified site
CPT/HCPCS: 73502; 96372; 99284; J1885; J2919

== ENCOUNTER 2024-11-22 15:34 | Outpatient (OUT) | payer BC, SELFPAY ==
--- OUTSIDE RECORDS SUMMARY | 2023-07-27 12:03 | XMS_ITS ---
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
--- OUTSIDE RECORDS SUMMARY | 2023-09-27 11:30 | XMS_ITS ---
Author Organization The [facility] [place] Address [address] [place] [address] Care Team Providers Care Window Caser Name Role Phone Back Mars WALTON Primary Care Provider Rivas Mejias [facility] [phone] Allergies Allergen (clinical drug ingredient) Drug/Non Drug Allergy documented on EMR Reaction Allergy Type Onset Date Status angiotensin-converti ng enzyme inhibitor (FN) ROMMEL Inhibitors anaphylaxis Drug Allergy Active lisinopril Lisinopril throat swelling Drug Allergy Active REASON FOR VISIT SELF REFERRAL-POST COVID PNEUMONIA/BIPAP/SUPPLIES Medications Medication SIG (Take, Route, Frequency, Duration) Notes Start Date End Date Status metFORMIN HCl ER 500 MG Oral for 90 Days Active Fluticasone Propionate 50 MCG/ACT INSTILL 2 SPRAYS INTO EACH NOSTRIL EVERY DAY Nasal for 21 Days Active amLODIPine Besylate 10 MG Oral for 90 Days Active Atenolol 25 MG Oral for 90 Days Active Estradiol 1 MG Oral for 90 Days Active DULoxetine HCl 60 MG Oral for 90 Days Active Fluticasone Propionate 50 MCG/ACT Nasal for 21 Days Active Pantoprazole Sodium 40 MG Oral for 90 Days Active busPIRone HCl 15 MG Oral for 90 Days Active Social History Tobacco Use: Social History Observation Description Date Details (start date - stop date) Former Smoker NA - NA Tobacco Control (Standard) Question Answer Notes Tobacco use: Former smoker How long has it been since y ou last smoked? Greater than 10 years Additional Findings: Tobacco non-user Ex -moderate cigarette smoker (10-19/day) Encounters Encounter Location Date Provider Diagnosis Pulmonary Medicine [place] [address] [place] [address] 09/27/2023 Rivas Frazier Plan Of Treatment No Information Progress Notes * Samara OMER ADOB:1980 (44 yo F)Acc No.[id number]:09/27/2023 UNLOCKED PROGRESS NOTE New Patient Patient: Samara MARSHALL Provider: Marli Frazier DO :1980 A ge:43 Y S ex:Female Date:09/27/2023 Address:[address] [place], [place] [id number] Pcp:Mars Sow MD Subjective: * Chief Complaints: * 1 . SELF REFERRAL-POST COVID PNEUMONIA/BIPAP/SUPPLIES. * Medical History: * Surgical History: e ndometrial ablation 02/04/2020, salpingectomy 04/07/2020, EGD . * Family History: F ather: diagnosed with Unspecified heart disease. M other: diagnosed with Diabetes mellitus without mention of complication, type II or unspecified type, not stated as uncontrolled, Other malignant neoplasm of unspecified site. * Social History: T obacco Use: L M: Additional Tobacco Questions N umber of Years Pt Smoked: 2 0 N umber of Packs per Day: 1 Electronic Cigarette use C urrent user N o When did you stop smokin. Tobacco Control (Standard) T obacco use: F ormer smoker H ow long has it been since you last smoked??Greater than 10 years A dditional Findings: Tobacco non-user E x-moderate cigarette smoker (10-19/day) D rugs/Alcohol: D rugs H ave you used drugs other than those for medical reasons in the past 12 months? N o D oes the Patient have a History of Drug Abuse in the Past? N o Do you drink alcohol?: No. Do you smoke marijuana?: Denies. * Medications: T aking amLODIPine Besylate 10 MG Tablet Oral , Taking Atenolol 25 MG Tablet Oral , Taking busPIRone HCl 15 MG Tablet Oral , Taking DULoxetine HCl 60 MG Capsule Delayed Release Particles Oral , Taking Estradiol 1 MG Tablet Oral , Taking Fluticasone Propionate 50 MCG/ACT Suspension INSTILL 2 SPRAYS INTO EACH NOSTRIL EVERY DAY Nasal , Taking Fluticasone Propionate 50 MCG/ACT Suspension Nasal , Taking metFORMIN HCl ER 500 MG Tablet Extended Release 24 Hour Oral , Taking Pantoprazole Sodium 40 MG Tablet Delayed Release Oral * Allergies: A CE Inhibitors: anaphylaxis - Allergy, Lisinopril: throat swelling - Allergy. Objective: * Vitals: Assessment: Plan: * Treatment: * * Electronic signature of Debby Frazier DO on 11/22/2024 at 03:38 PM EDT Sign off status: Pending Visit Status: N /S N/C (No Show/No Charge) * Provider: Marli Frazier DO Date: 09/27/2023 Generated for Toño newberry/Asim/Tang on: 11/22/2024 03:38 PM EDT
--- OUTSIDE RECORDS SUMMARY | 2023-09-27 11:58 | XMS_ITS ---
Author Organization The [facility] in [place] Address [address] [place] [address] Care Team Providers Care Stratigraphy Teacher Name Role Phone Back Mars WALTON Primary Care Provider Rivas Mejias [phone] REASON FOR VISIT No-show DIRECTOR [facility] appt Encounters Encounter Location Date Provider Diagnosis Pulmonary Medicine [place] [address] [place] [address] 09/27/2023 Rivas Frazier Plan Of Treatment No Information Progress Notes * LAURIE Samara ADOB:1980 (43 yo F)Acc No.[id number]:09/27/2023 Patient: Samara MARSHALL :1980 A ge:43 Y S ex:Female Address:[address] [place] [address] * true * Date: Generated for Toño newberry/Asim/eTransmitting on: 0 11/22/2024 03:37 PM EDT
--- OUTSIDE RECORDS SUMMARY | 2024-11-22 15:37 | XMS_ITS | Encounter Summary ---
Author Organization [facility] Address [address] [place] [address] Care Team Providers Care Ornamental Metal Worker Helper Name Role Phone Back, John WALTON Primary Care Provider [phone] Encounter Details Date Type Department Care Team (Late st Contact Info) Description 11/04/2022 Abstract [facility] [address] [place] [id number] Markus Vega DO [address] [place] [address] Social History Tobacco Use Types Packs/Day Years Used Date Smoking Tobacco: Former Cigarettes Alcohol Use Standard Drinks/Week Comments Yes 0 (1 standard drink = 0.6 oz pur e alcohol) Occasional drinker Comments Unknown Sex and Gender Information Value Date Recorded Sex Assigned at Female 10/04/2022 11:42 AM EDT Legal Sex Female 11:47 PM EDT Gender Identity Female 10/04/2022 11:42 AM EDT Sexual Orientation Straight 10/04/2022 11 :42 AM EDT COVID-19 Exposure Response Date Recorded In the last 10 days, have yo u been in contact with someone who was confirmed or suspected to have Coronavirus/COVID-19? No / Unsure 11/07/2022 1:10 PM EDT documented as of this encounter Plan of Treatment Upcoming Encounters Date Type Department Care Team (Late st Contact Info) Description 12/04/2024 1:40 PM EDT Office Visit [facility] [address] [place] [phone] Markus Vega DO [address] [place] [address] documented as of this encounter Visit Diagnoses Not on filedocumented in this encounter Care Teams Ornamental Metal Worker Helper Relationship Specialty Start Date End Date Back, MD John [address] [place] [id number] PCP - General Family Medicine 10/05/22 documented as of this encounter
--- OUTSIDE RECORDS SUMMARY | 2024-11-22 15:37 | XMS_ITS | Clinical Summary ---
Author Organization [facility] Address [address] [place] [address] Care Team Providers Care Health Physics Technician Name Role Phone Back, John WALTON Primary Care Provider [phone] Allergies Active Allergy Reactions Criticality Noted Date Comments Gordon Inhibitors Anaphylaxis,Rash,Swe ll ing High 09/29/2019 Angioedema Other Reaction(s): Swelling of throat Angioedema Back of throat could still breath Dust Mite Extract 06/26/2020 Lisinopril Swelling,Anaphylaxis High 09/29/2019 Back of throat could still breath Mite (D. Farinae) Shortness of breath High 3 Molds & Smuts 06/26/2020 Medications amLODIPine (Norvasc) 10 MG tablet Take 10 mg by mouth in the morning. 2 Active atenolol (Tenormin) 25 MG tablet Take 1 tablet by mouth in the morning. 3 Active busPIRone (Buspar) 15 MG tablet Take 1 tablet by mouth in the morning and 1 tablet in the evening and 1 tablet before bedtime. 2 Active cyclobenzaprine (Flexeril) 10 MG tablet Take 10 mg by mouth 3 (three) times a day as needed. 3 Active fluticasone (Flonase) 50 MCG/ACT nasal spray Administer 1 spray into each nostril in the morning. 3 Active hydrOXYzine HCl (Atarax) 25 MG tablet Take 25 mg by mouth every 8 (eight) hours if needed for anxiety. 3 Active ibuprofen 800 MG tablet Take 1 tablet by mouth in the morning and 1 tablet in the evening and 1 tablet before bedtime. 3 Active pantoprazole (ProtoNix) 40 MG EC tablet Take 40 mg by mouth in the morning. Take before meals. 2 Active DULoxetine (Cymbalta) [address] capsule Take 120 mg by mouth in the morning. Do not crush or chew. . Active Ascorbic Acid (vitamin C) 250 MG tablet Take 250 mg by mouth in the morning. Active phentermine (Adipex-P) 37.5 MG tabletIndications :Encounter for weight management Take 1 tablet (37.5 mg) by mouth in the morning. Take before meals. 30 tablet 4 Active phentermine (Adipex-P) 37.5 MG tabletIndications :Encounter for weight management Take 1 tablet (37.5 mg) by mouth in the morning. Take before meals. 90 tablet 4 Active metFORMIN XR (Glucophage-XR) 500 MG 24 hr tabletIndications :Encounter for weight management,Hormon e imbalance TAKE 1 TABLET IN THE EVENING. TAKE WITH MEALS. DO NOT CRUSH, CHEW OR SPLIT 90 tablet 3 4 Active estradiol (Estrace) 1 MG tabletIndications :Hormone imbalance,S/P hysterectomy TAKE 1 TABLET IN THE MORNING 90 tablet 3 4 Active Encounters Date Type Department Care Team Description 09/11/2024 2:20 PM EDT Office Visit [facility] [address] [place] [address] Markus Veag DO Pain of left breast; Encounter for screening mammogram for malignant neoplasm of breast; Pelvic pain in female 09/11/2024 Bamboo flowsheet [facility] [address] [place] [address] Markus Vega DO from Last 3 Months Family History Medical History Relation Name Comments Diabetes Brother Heart disease Brother Cancer Father Heart disease Father Cancer Mother Diabetes Mother Cancer Mother's Sister 1 Relation Name Status Comments Brother 1 Father Mother Mother's Sister 1 Mother's Sister 2 Alive Son Alive 1 Social History Tobacco Use Types Packs/Day Years Used Date Smoking Tobacco: Former Cigarettes Tobacco Cessation:Counseling Given: Not Answered Alcohol Use Standard Drinks/Week Comments Yes 0 (1 standard drink = 0.6 oz pur e alcohol) Occasional drinker Comments No Sex and Gender Information Value Date Recorded Sex Assigned at Female 10/04/2022 11:42 AM EDT Legal Sex Female 11:47 PM EDT Gender Identity Female 10/04/2022 11:42 AM EDT Sexual Orientation Straight 10/04/2022 11 :42 AM EDT Last Filed Vital Signs Vital Sign Reading Time Taken Comments Blood Pressure 118/72 06/22/2023 9:42 AM EST Pulse 76 04/27/2023 2:10 PM EST Temperature - - Respiratory Rate - - Oxygen Saturation - - Inhaled Oxygen Concentration - - Weight 135 kg (297 lb) 09/11/2024 2:55 PM EDT Height 160 cm (5' 3 ) 09/11/2024 2:55 PM EDT Body Mass Index 52.61 09/11/2024 2:55 PM EDT Plan of Treatment Upcoming Encounters Date Type Department Care Team (Late st Contact Info) Description 12/04/2024 1:40 PM EDT Office Visit [facility] [address] [place] [address] Markus Vega DO [address] [facility] [address] [place], [place] [id number] Insurance [facility] Care Teams Health Physics Technician Relationship Specialty Start Date End Date Back, MD John [address] [place] [address] PCP - General Family Medicine 10/05/22
--- OUTSIDE RECORDS SUMMARY | 2024-11-22 15:37 | XMS_ITS | Encounter Summary ---
Author Organization [facility] Address [address] [place] [address] Care Team Providers Care Electro Mechanic Name Role Phone Back, John WALTON Primary Care Provider [phone] Encounter Details Date Type Department Care Team (Late st Contact Info) Description 11/05/2022 Abstract [facility] [address] [facility] [place] [phone] Markus Vega DO [address] [place] [address] Social History Tobacco Use Types Packs/Day Years [...] EDT Office Visit [facility] [address] [facility] [place] [phone] Markus Vega DO [address] [facility] [place] [address] documented as of this encounter Visit Diagnoses Not on filedocumented in this encounter Care Teams Electro Mechanic Relationship Specialty Start Date End Date Back, MD John [address] [place] [id number] PCP - General Family Medicine 10/05/22 documented as of this encounter
--- OUTSIDE RECORDS SUMMARY | 2024-11-22 15:37 | XMS_ITS | Encounter Summary ---
Author Organization [facility] Address [address] [place] [address] Care Team Providers Care Drum Dyeing Machine Operator Name Role Phone Back, John WALTON Primary Care Provider [phone] Encounter Details Date Type Department Care Team (Late st Contact Info) Description 09/21/2022 Clinisync Result Encounter [facility] External Department Unsolicited Markus Vega, DO [address] [place] [address] Social History Tobacco Use Types Packs/Day Years Used Date Smoking Tobacco: Never Assessed Comments Unknown Sex and Gender Information Value Date Recorded Sex Assigned at Female 10/04/2022 11:42 AM EDT Legal Sex Female 11:47 PM EDT Gender Identity Female 10/04/2022 11:42 AM EDT Sexual Orientation Straight 10/04/2022 11 :42 AM EDT documented as of this encounter Plan of Treatment Upcoming Encounters Date Type Department Care Team (Late st Contact Info) Description 12/04/2024 1:40 PM EDT Office Visit [facility] [address] [place] [phone] Markus Vega DO [address] [place] [address] documented as of this encounter Procedures Procedure Name Priority Date/Time Associated Diagnosis Comments MG MAMM SCREEN 3D LOU CAD 09/21/2022 3:50 PM EDT documented in this encounter Results * MG MAMM SCREEN 3D LOU CAD (09/21/2022 3:50 PM EDT) Anatomical Region Laterality Modality Other 09/21/2022 3:50 PM EDT Narrative 09/21/2022 3:50 PM EDT Patient: SAMARA OMER. Exam Date: 09/21/2022 : 1980 Gender:F Ordering : DR MARKUS VEGA . Admission #: [id number] Family : Order #: [id number] CLICK HERE TO VIEW EXAM RADIOLOGY REPORT PROCEDURE: MAMMOGRAM SCREENING 3D BILATERAL CAD COMPARISON: MG MAMM RT DIAG FU, 03/11/2020. MG MAMM SCREEN LOU W CAD, 02/12/2020. INDICATIONS: Screening mammography Calculator Name NCI Breast Cancer Risk Assessment Tool 5 Year Breast Cancer Risk 1.40% Lifetime Breast Cancer Risk 19.10% Personal Breast Cancer No Personal Ovarian Cancer No Treatments None Family Cancers Mother with breast cancer at age 73; Father with leukemia cancer at age 78; Father with lung cancer at age 80; Grandmother-maternal with lymphoma cancer at age 80; Uncle-maternal with lung cancer at age 60. LOCATION: [facility] BREAST COMPOSITION: Heterogeneously dense,which may obscure small masses. FINDINGS: DIAGNOSTIC CATEGORY 1--NEGATIVE. RIGHT BREAST: No significant suspicious finding. No significant change has occurred. LEFT BREAST: No significant suspicious finding. No significant change has occurred. RECOMMENDATIONS: ROUTINE MAMMOGRAM AND CLINICAL EVALUATION IN 12 MONTHS. PLEASE NOTE: A NORMAL MAMMOGRAM DOES NOT EXCLUDE THE POSSIBILITY OF BREAST CANCER. A CLINICALLY SUSPICIOUS PALPABLE LUMP SHOULD BE BIOPSIED. Dictated by: Mateo Mohr M.D. on 09/22/2022 at 13:47 Approved by: Mateo Mohr M.D. on 09/22/2022 at 13:49 Procedure Note Radiology, Radiologist, - 09/22/2022 Patient: SAMARA OMER Exam Date: 09/21/2022 : 1980 Gender:F Ordering : DR MARKUS VEGA . Admission #: [id number] Family : Order #: [id number] CLICK HERE TO VIEW EXAM RADIOLOGY REPORT PROCEDURE: MAMMOGRAM SCREENING 3D BILATERAL CAD COMPARISON: MG MAMM RT DIAG FU, 03/11/2020. MG MAMM SCREEN LOU W CAD, 02/12/2020. INDICATIONS: Screening mammography Calculator Name NCI Breast Cancer Risk Assessment Tool 5 Year Breast Cancer Risk 1.40% Lifetime Breast Cancer Risk 19.10% Personal Breast Cancer No Personal Ovarian Cancer No Treatments None Family Cancers Mother with breast cancer at age 73; Father withleukemia cancer at age 78; Father with lung cancer at age 80; Grandmother-maternalwith lymphoma cancer at age 80; Uncle-maternal with lung cancer at age 60. LOCATION: [facility] BREAST COMPOSITION: Heterogeneously dense,which may obscure smallmasses. FINDINGS: DIAGNOSTIC CATEGORY 1--NEGATIVE. RIGHT BREAST: No significant suspicious finding. No significant changehas occurred. LEFT BREAST: No significant suspicious finding. No significant changehas occurred. RECOMMENDATIONS: ROUTINE MAMMOGRAM AND CLINICAL EVALUATION IN 12 MONTHS. PLEASE NOTE: A NORMAL MAMMOGRAM DOES NOT EXCLUDE THE POSSIBILITY OFBREAST CANCER. A CLINICALLY SUSPICIOUS PALPABLE LUMP SHOULD BE BIOPSIED. Dictated by: Mateo Mohr M.D. on 09/22/2022 at 13:47 Approved by: Mateo Mohr M.D. on 09/22/2022 at 13:49 Markus Vega DO [facility] Final Result documented in this encounter Visit Diagnoses Not on filedocumented in this encounter Care Teams Drum Dyeing Machine Operator Relationship Specialty Start Date End Date Back, MD John [address] [place] [address] PCP - General Family Medicine 10/05/22 documented as of this encounter
--- OUTSIDE RECORDS SUMMARY | 2024-11-22 15:37 | XMS_ITS | Encounter Summary ---
Author Organization [facility] Address [address] [place] [address] Care Team Providers Care Retail Warehouse Associate Name Role Phone Back, John WALTON Primary Care Provider [phone] Encounter Details Date Type Department Care Team (Late st Contact Info) Description 10/28/2022 Abstract [facility] [address] [place] [phone] Markus Vega DO [address] [facility] [address] [place], [place] [id number] Social History Tobacco Use Types Packs/Day Years [...] suspected to have Coronavirus/COVID-19? No / Unsure 10/04/2022 4:49 PM EDT documented as of this encounter Plan of Treatment Upcoming Encounters Date Type Department Care Team (Late st Contact Info) Description 12/04/2024 1:40 PM EDT Office Visit [facility] [address] [facility] [place] [phone] Markus Vega DO [address] [facility] [place] [address] documented as of this encounter Visit Diagnoses Not on filedocumented in this encounter Care Teams Retail Warehouse Associate Relationship Specialty Start Date End Date Back, MD John [address] [place] [address] PCP - General Family Medicine 10/05/22 documented as of this encounter
--- OUTSIDE RECORDS SUMMARY | 2024-11-22 15:37 | XMS_ITS | Encounter Summary ---
Author Organization [facility] Address [address] [place] [address] Care Team Providers Care Supervisor Glycerin Name Role Phone Back, John WALTON Primary Care Provider [phone] Encounter Details Date Type Department Care Team (Late st Contact Info) Description 10/28/2022 Abstract [facility] [address] [facility] [place] [phone] Markus Vega DO [address] [facility] [address] [place], [place] [phone] Social History Tobacco Use Types Packs/Day Years [...] Office Visit [facility] [address] [facility] [place] [phone] Markus Vega DO [address] [facility] [place] [address] documented as of this encounter Visit Diagnoses Not on filedocumented in this encounter Care Teams Supervisor Glycerin Relationship Specialty Start Date End Date Back, MD John [address] [place] [address] PCP - General Family Medicine 10/05/22 documented as of this encounter
--- OUTSIDE RECORDS SUMMARY | 2024-11-22 15:37 | XMS_ITS | Encounter Summary ---
Author Organization [facility] Address [address], [address] [place] [address] Care Team Providers Care Call Center Specialist Name Role Phone Mars Sow MD Primary Care Provider [phone] Reason for Visit * Reason Comments Medication Refill Encounter Details Date Type Department Care Team ([facility] st Contact Info) Description 03/15/2017 Refill [facility] [address] [phone] Mars Sow MD [address] [place] [id number] Medication Refill Social History Tobacco Use Types Packs/Day Years Used Date Smoking Tobacco: Former Cigarettes Q uit: 06/22/2013 Alcohol Use Standard Drinks/Week Comments No 0 (1 standard drink = 0.6 oz pur e alcohol) Comments No Sex and Gender Information Value Date Recorded Sex Assigned at Female 08/27/2020 11:08 AM EDT Legal Sex Female 11:46 AM EST Gender Identity Female 08/27/2020 11:08 AM EDT Sexual Orientation Straight 08/27/2020 11 :08 AM EDT documented as of this encounter Plan of Treatment Not on file documented as of this encounter Visit Diagnoses Diagnosis Chronic right-sided thoracic back pain documented in this encounter Additional Health Concerns Infection Onset Date Last Indicated Resolved Time COVID-19 (Rule Out) 09/12/2020 09/12/2020 05/22/20 21 11:00 AM EDT COVID-19 (Rule Out) 10/02/2020 10/02/2020 10/04/19 11:37 AM EDT documented as of this encounter Care Teams Call Center Specialist Relationship Specialty Start Date End Date Back, MD Mars [address] [place] [address] PCP - General Internal Medicine 03/26/11 documented as of this encounter
--- OUTSIDE RECORDS SUMMARY | 2024-11-22 15:37 | XMS_ITS | Encounter Summary ---
Author Organization [facility] Address [address] [place] [facility] [place] [address] Care Team Providers Care Team Manager Name Role Phone Back, John WALTON Primary Care Provider [phone] Encounter Details Date Type Department Care Team (Late st Contact Info) Description 09/17/2022 Clinisync Result Encounter [facility] External Department Unsolicited Markus Vega, DO [address] [place] [address] Social History Tobacco Use Types Packs/Day Years [...] Visit [facility] [address] [place] [phone] Markus Vega DO [address] [place] [address] documented as of this encounter Procedures Procedure Name Priority Date/Time Associated Diagnosis Comments US PELVIS AND TRANSVAG 09/17/2022 3:57 PM EDT documented in this encounter Results * US PELVIS AND TRANSVAG (09/17/2022 3:57 PM EDT) Anatomical Region Laterality Modality Other 09/17/2022 3:57 PM EDT Narrative 09/17/2022 5:22 PM EDT EXAMINATION: US PELVIS AND TRANSVAG HISTORY: Excessive menstruation with irregular cycle COMPARISON: 02/14/2020 FINDINGS: The uterus is anteverted. Uterus measures 11.5 x 7.3 x 6.5 cm. Heterogeneous myometrium, lobular contour. Multiple myometrial masses. The largest in the posterior myometrium measures 5.7 x 4.8 x 3.3 cm. The endometrium measures 8 mm, normal. The right ovary measures 3.6 x 2.9 x 2.3 cm. Normal color and Doppler flow. Area of anechoic echogenicity measuring 1.1 cm, simple cyst. The left ovary measures 4.9 x 3.7 x 3.6 cm. Complex cystic area measuring 4.0 x 3.1 x 3.4 cm. No color flow is observed. IMPRESSION: Enlarged lobular heterogeneous uterus, fibroids are statistically favored 4.1 cm complex left ovarian cyst Electronically authenticated by: MADIE ALY Date: 2022-09-17 17:22 Procedure Note Radiology, Radiologist, - 09/17/2022 EXAMINATION: US PELVIS AND TRANSVAG HISTORY: Excessive menstruation with irregular cycle COMPARISON: 02/14/2020 FINDINGS: The uterus is anteverted. Uterus measures 11.5 x 7.3 x 6.5 cm.Heterogeneous myometrium, lobular contour. Multiple myometrial masses. The largest inthe posterior myometrium measures 5.7 x 4.8 x 3.3 cm. The endometrium measures 8 mm, normal. The right ovary measures 3.6 x 2.9 x 2.3 cm. Normal color and Dopplerflow. Area of anechoic echogenicity measuring 1.1 cm, simple cyst. The left ovary measures 4.9 x 3.7 x 3.6 cm. Complex cystic area measuring4.0 x 3.1 x 3.4 cm. No color flow is observed. IMPRESSION: Enlarged lobular heterogeneous uterus, fibroids are statisticallyfavored 4.1 cm complex left ovarian cyst Electronically authenticated by: MADIE ALY Date: 2022-09-17 17:22 Markus Vega DO [facility] Final Result documented in this encounter Visit Diagnoses Not on filedocumented in this encounter Care Teams Team Manager Relationship Specialty Start Date End Date Back, MD John [address] [place] [address] PCP - General Family Medicine 10/05/22 documented as of this encounter
--- OUTSIDE RECORDS SUMMARY | 2024-11-22 15:37 | XMS_ITS | Encounter Summary ---
Author Organization [facility] Address [address] [place] [address] Care Team Providers Care Starchmaker Name Role Phone Back, John WALTON Primary Care Provider [phone] Encounter Details Date Type Department Care Team (Late st Contact Info) Description 11/04/2022 Abstract [facility] [address] [facility] [place] [address] Markus Vega DO [address] [facility] [place] [address] Social History Tobacco Use Types Packs/Day Years [...] EDT Office Visit [facility] [address] [facility] [place] [phone] Markus Vega DO [address] [facility] [place] [address] documented as of this encounter Visit Diagnoses Not on filedocumented in this encounter Care Teams Starchmaker Relationship Specialty Start Date End Date Back, MD John [address] [place] [address] PCP - General Family Medicine 10/05/22 documented as of this encounter
--- OUTSIDE RECORDS SUMMARY | 2024-11-22 15:37 | XMS_ITS | Encounter Summary ---
Author Organization [facility] Address [address], [address] [place] [address] Care Team Providers Care Environmental Lawyer Name Role Phone Mars Sow MD Primary Care Provider [phone] Reason for Visit * Reason Comments Medication Refill Encounter Details Date Type Department Care Team ([facility] st Contact Info) Description 02/25/2018 Refill [facility] [address] [phone] Mars Sow MD [address] [place] [address] Medication Refill Social History Tobacco Use Types Packs/Day Years Used Date Smoking Tobacco: Former Cigarettes Q uit: 06/22/2013 Smokeless Tobacco: Never Alcohol Use Standard Drinks/Week Comments No 0 [...] as of this encounter Visit Diagnoses Diagnosis Bronchitis with bronchospasm Acute bronchitis documented in this encounter Additional Health Concerns Infection Onset Date Last Indicated Resolved Time COVID-19 (Rule Out) 09/12/2020 09/12/202022/20 21 11:00 AM EDT COVID-19 (Rule Out) 10/02/2020 10/02/2020 10/04/19 11:37 AM EDT documented as of this encounter Care Teams Environmental Lawyer Relationship Specialty Start Date End Date Back, MD Mars [address] [place], [place] [phone] PCP - General Internal Medicine 03/26/11 documented as of this encounter
--- OUTSIDE RECORDS SUMMARY | 2024-11-22 15:38 | XMS_ITS | Encounter Summary ---
Author Organization [facility] Address [address], [address] [place] [address] Care Team Providers Care Personal Coach Name Role Phone Mars Sow MD Primary Care Provider [phone] Encounter Details Date Type Department Care Team (Late st Contact Info) Description 02/25/2023 Orders Only [facility] [place] [address] [place] [phone] Provider, MD Fiona Social History Tobacco Use Types Packs/Day Years Used Date Smoking Tobacco: Former Cigarettes Q uit: 06/22/2013 Smokeless Tobacco: Never Alcohol Use Standard Drinks/Week Comments No 0 (1 standard drink = 0.6 oz pur e alcohol) Overall Financial Resource Strain (CARDIA) Answe r Date Recorded How hard is it for you to pa y for the very basics like food, housing, medical care, and heating? Not very hard 09/11/2022 PHQ-2 Answer Date Recorded PHQ-9 Total Score 15 09/13/2022 Hunger Vital Sign Answer Date Recorded Within the past 12 months, y ou worried that your food would run out before you got the money to buy more. Never true 09/12/19 23 Within the past 12 months, t he food you bought just didn't last and you didn't have money to get more. Never true 09/11/2022 PRAPARE - Transportation Answer Date Re corded Lack of Transportation (Medical) Not on file 09/11/2022 In the past 12 months, has l ack of transportation kept you from meetings, work, or from getting things needed for daily living? No 09/11/2022 Housing Stability Vital Sign Answer Isac e Recorded Unable to Pay for Housing in the Last Year Not o n file 09/11/2022 Number of Places Lived in the Last Year Not on f ile 09/11/2022 In the last 12 months, was t here a time when you did not have a steady place to sleep or slept in a alf (including now)? No 09/11/2022 Food Insecurity Answer Date Recorded Within the past 12 months, y ou worried that your food would run out before you got the money to buy more. 1 09/11/2022 Within the past 12 months, t he food you bought just didn't last and you didn't have money to get more. 1 09/11/2022 Education Answer Date Recorded What is the highest level of school you have completed or the highest degree you have received? High school graduate 05/03/2019 Comments No Sex and Gender Information Value Date Recorded Sex Assigned at Female 08/27/2020 11:08 AM EDT Legal Sex Female 11:46 AM EST Gender Identity Female 08/27/2020 11:08 AM EDT Sexual Orientation Straight 08/27/2020 11 :08 AM EDT Occupation Industry Job Start Date Job End Date Not on file Not on file Not on file Not on file documented as of this encounter Plan of Treatment Not on file documented as of this encounter Procedures Procedure Name Priority Date/Time Associated Diagnosis Comments FULL SLEEP STUDY Routine 04/15/2013 documented in this encounter Results * OP Full Sleep Study upon Discharge (04/15/2013) us Historical Provider NURSING ASSESSMEN T ORDERABLES - ONCE OR AT INTERVALS Final Result documented in this encounter Visit Diagnoses Not on filedocumented in this encounter Care Teams Personal Coach Relationship Specialty Start Date End Date Back, MD Mars [address] [place] [address] PCP - General Internal Medicine 03/26/11 documented as of this encounter
--- OUTSIDE RECORDS SUMMARY | 2024-11-22 15:38 | XMS_ITS | Encounter Summary ---
Author Organization [facility] Address [address], [address] [place] [address] Care Team Providers Care Bakery Helper Name Role Phone Mars Sow MD Primary Care Provider [phone] Encounter Details Date Type Department Care Team (Late st Contact Info) Description 07/19/2024 Orders Only [facility] of [place] [address] [place] [phone] Provider, MD Fiona Social History Tobacco Use Types Packs/Day Years Used Date Smoking Tobacco: Former Cigarettes 1 20 Q uit: 06/22/2013 Smokeless Tobacco: Never Alcohol Use Standard Drinks/Week Comments No 0 (1 standard drink = 0.6 oz pur e alcohol) Overall Financial Resource Strain (CARDIA) Answe r Date Recorded How hard is it for you to pa y for the very basics like food, housing, medical care, and heating? Not hard at all 03/08/2024 PHQ-2 Answer Date Recorded PHQ-9 Total Score 8 08/22/2023 Hunger Vital Sign Answer Date Recorded Within the past 12 months, y ou worried that your food would run out before you got the money to buy more. Never true 03/08/20 24 Within the past 12 months, t he food you bought just didn't last and you didn't have money to get more. Never true 03/08/2024 PRAPARE - Transportation Answer Date Re corded Lack of Transportation (Medical) Not on file 03/08/2024 In the past 12 months, has l ack of transportation kept you from meetings, work, or from getting things needed for daily living? No 03/08/2024 Housing Stability Vital Sign Answer Isac e Recorded Unable to Pay for Housing in the Last Year Not o n file 09/11/2022 Number of Places Lived in the Last Year Not on f ile 09/11/2022 In the last 12 months, was t here a time when you did not have a steady place to sleep or slept in a fci (including now)? No 09/11/2022 Housing Stability Vital Sign Answer Isac e Recorded Unable to Pay for Housing in the Last Year Not o n file 03/08/2024 Number of Times Moved in the Last Year Not on fi le 03/08/2024 At any time in the past 12 m [facility], were you homeless or living in a fci (including now)? No 03/08/2024 Food Insecurity Answer Date Recorded Within the past 12 months, y ou worried that your food would run out before you got the money to buy more. 1 03/08/2024 Within the past 12 months, t he food you bought just didn't last and you didn't have money to get more. 1 03/08/2024 Education Answer Date Recorded What is the [...] Procedure Name Priority Date/Time Associated Diagnosis Comments HM MAMMOGRAPHY Routine 09/21/2022 3:53 PM EDT documented in this encounter Results * HM MAMMOGRAPHY (09/21/2022 3:53 PM EDT) Anatomical Region Laterality Modality Other Historical Provider HEALTH MAINTENANCE Final Result documented in this encounter Visit Diagnoses Not on filedocumented in this encounter Care Teams Bakery Helper Relationship Specialty Start Date End Date JuanjoseMars MD [address] [place] [id number] PCP - General Internal Medicine 03/26/11 documented as of this encounter
--- OUTSIDE RECORDS SUMMARY | 2024-11-22 15:38 | XMS_ITS | Patient Health Record ---
Author Organization [facility] [place] Address [address] [place] [address] Care Team Providers Care Wildlife Conservationist Name Role Phone Back Mars WALTON Primary Care Provider Unavailabl e Allergies Allergen (clinical drug ingredient) Drug/Non Drug Allergy documented on EMR Reaction Allergy Type Onset Date Status angiotensin-converti ng enzyme inhibitor (FN) ROMMEL Inhibitors anaphylaxis Drug Allergy Active lisinopril Lisinopril throat swelling Drug Allergy Active Reason For Referral No Information Medications Medication SIG (Take, Route, Frequency, Duration) Notes Start Date End Date Status metFORMIN HCl ER 500 MG Oral for 90 Days Active Fluticasone Propionate 50 MCG/ACT INSTILL 2 SPRAYS INTO EACH NOSTRIL EVERY DAY Nasal for 21 Days Active DULoxetine HCl 60 MG Oral for 90 Days Active Fluticasone Propionate 50 MCG/ACT Nasal for 21 Days Active amLODIPine Besylate 10 MG Oral for 90 Days Active Atenolol 25 MG Oral for 90 Days Active Estradiol 1 MG Oral for 90 Days Active Pantoprazole Sodium 40 MG Oral [...] Tobacco non-user Ex -moderate cigarette smoker (10-19/day) Plan Of Treatment No Information Insurance Providers Payer Name Payer Address Payer Phone Subscriber Number Group Number Insured Name Patient Relationship to Insured Coverage Start Date Coverage End Date JAC RUBY [address] [place] [phone] [id number] Samara Omer Self - patient is the insured Medical (General) History Surgical History Surgery Date(Month/Year) EGD salpingectomy 04/07/2020 endometrial ablation 02/04/2020
--- OUTSIDE RECORDS SUMMARY | 2024-11-22 15:38 | XMS_ITS | Clinical Summary ---
Author Organization [facility] Address [address], [address] [place] [address] Care Team Providers Care Tar Worker Name Role Phone Back, Mars WALTON Primary Care Provider [phone] Allergies Active Allergy Reactions Criticality Noted Date Comments Gordon Inhibitors 10/01/2019 Angioedema Dust Mite Extract 06/26/2020 Molds & Smuts 06/26/2020 Medications albuterol (PROVENTIL) (2.5 MG/3ML) 0.083% nebulizer solutionIndicat ions:SOB (shortness of breath) Take 3 mLs by nebulization every 4 hours as needed for Wheezing or Shortness of Breath 120 each 3 05/23/19 21 Active estradiol (ESTRACE) 1 MG tablet Take 1 tablet by mouth daily 03/30/20 23 Active Albuterol-Budes onide 90-80 MCG/ACT AERO 1 puff(s), Inhalation, QID for wheezing, 18 gram, Refill(s) 0 06/02/19 21 Active ascorbic acid (VITAMIN C) 250 MG tablet Take 1 tablet by mouth daily Active Ferrous Sulfate (IRON PO) Take 1 tablet by mouth daily Active fluticasone (FLONASE) 50 MCG/ACT nasal spray 08/18/19 24 Active hydrOXYzine HCl (ATARAX) 25 MG tablet Take 1 tablet by mouth as needed 09/14/19 23 Active montelukast (SINGULAIR) 10 MG tablet Take 1 tablet by mouth nightly Active DULoxetine (CYMBALTA) 60 MG extended release capsuleIndicati ons:Depression with anxiety Take 2 capsules by mouth daily 180 capsule 1 07/19/19 25 Active cyclobenzaprine (FLEXERIL) 10 MG tabletIndicatio ns:Chronic right-sided thoracic back pain Take 1 tablet by mouth 2 times daily as needed for Muscle spasms 180 tablet 1 07/19/19 25 Active HYDROcodone-gordon taminophen (NORCO) 5-325 MG per tablet Take 1 tablet by mouth every 6 hours as needed for Pain. 09/15/19 25 Active ibuprofen (ADVIL;MOTRIN) 800 MG tabletIndicatio ns:Polyarthralg ia TAKE 1 TABLET BY MOUTH EVERY 8 HOURS NEEDED FOR PAIN 270 tablet 3 09/25/19 25 Active pantoprazole (PROTONIX) 40 MG tablet TAKE 1 TABLET BY MOUTH EVERY MORNING BEFORE BREAKFAST 90 tablet 3 10/30/19 25 Active amLODIPine (NORVASC) 10 MG tabletIndicatio ns:Essential hypertension TAKE 1 TABLET BY MOUTH DAILY 90 tablet 3 10/30/19 25 Active atenolol (TENORMIN) 25 MG tabletIndicatio ns:Essential hypertension TAKE 1 TABLET BY MOUTH DAILY 90 tablet 3 10/30/19 25 Active pantoprazole (PROTONIX) 40 MG tablet Take 1 tablet by mouth every morning (before breakfast) 90 tablet 1 07/19/19 25 2024 Discontinued amLODIPine (NORVASC) 10 MG tabletIndicatio ns:Essential hypertension Take 1 tablet by mouth daily 90 tablet 1 07/19/19 25 2024 Discontinued atenolol (TENORMIN) 25 MG tabletIndicatio ns:Essential hypertension Take 1 tablet by mouth daily 90 tablet 1 07/19/19 25 2024 Discontinued Active Problems Problem Noted Date Diagnosed Date Pre-diabetes 09/13/2022 Assessment & Plan (03/08/2024 4:27 PM EST): Will check a HgbA1C. Continue to watch sweets / carbs in the diet. Orders: Comprehensive Metabolic Panel; Future Hemoglobin A1C; Future nirmatrelvir/ritonavir 300/100 (PAXLOVID, 300/100,) 20 x 150 MG & 10 x 100MG TBPK; Take 3 tablets (two 150 mg nirmatrelvir and one 100 mg ritonavir tablets) by mouth every 12 hours for 5 days. Hypoxia 06/26/2020 Mild intermittent asthma without complication Assessment & Plan (03/08/2024 4:27 PM EST): Stable on Singulair and Proventil as needed. Orders: nirmatrelvir/ritonavir 300/100 (PAXLOVID, 300/100,) 20 x 150 MG & 10 x 100MG TBPK; Take 3 tablets (two 150 mg nirmatrelvir and one 100 mg ritonavir tablets) by mouth every 12 hours for 5 days. Depression with anxiety 06/19/2019 Assessment & Plan (03/08/2024 4:27 PM EST): Continues on Cymbalta. Is seeking out a Psychiatrist at this time. She would also like treatment for ADHD. Peripheral neuropathy 06/19/2019 Gastroesophageal reflux disease without esophagi tis 03/24/2017 Essential hypertension 03/24/2017 Assessment & Plan (03/08/2024 4:27 PM EST): Controlled on Amlodipine and Tenormin. No change in dose. 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 - [employer] Piriformis muscle pain (Primary Dx); Sciatica of left side 09/14/2024 Abstract [facility] [address] [place] [address] Mars Sow MD from Last 3 Months Immunizations Immunization Administration Dates Next Due Influenza Virus Vaccine 02/24/2020 Influenza, FLUARIX, FLULAVAL , FLUZONE (age 6 mo+) and AFLURIA, (age 3 y+), Quadv PF, 0.5mL 03/06/2020,02/09/2018,03/24/2017 Family History Medical History Relation Name Comments Heart Disease Brother Rishabh Substance Abuse Brother Rishabh Alzheimer's Disease Father Dad Heart Disease Father Dad Cancer Mother Mom Diabetes Mother Mom Parkinson's Disease Mother Mom Relation Name Status Comments Brother Rishabh Father Dad Alive Mother Mom Alive Social History Tobacco Use Types Packs/Day Years Used Date Smoking Tobacco: Former Cigarettes 1 20 Q uit: 06/22/2013 Smokeless Tobacco: Never Tobacco Cessation:Counseling Given: Not Answered Alcohol Use Standard Drinks/Week Comments No 0 (1 standard drink = 0.6 oz pur e alcohol) [facility] Utilities Answer Date Recorded In the past 12 months has th e electric, gas, oil, or water Woo[employer] threatened to shut off services in your home? No 09/18/2024 Overall Financial Resource Strain (CARDIA) Answe r Date Recorded How hard is it for you to pa y for the very basics like food, housing, medical care, and heating? Not hard at all 03/08/2024 PHQ-2 Answer Date Recorded PHQ-9 Total Score 0 09/18/2024 Hunger Vital Sign Answer Date Recorded Within the past 12 months, y ou worried that your food would run out before you got the money to buy more. Never true 09/19/19 25 Within the past 12 months, t he food you bought just didn't last and you didn't have money to get more. Never true 09/18/2024 PRAPARE - Transportation Answer Date Re corded In the past 12 months, has l ack of transportation kept you from medical appointments or from getting medications? No 08/24 In the past 12 months, has l ack of transportation kept you from meetings, work, or from getting things needed for daily living? No 09/18/2024 Housing Stability Vital Sign Answer Isac e Recorded Unable to Pay for Housing in the Last Year Not o n file 09/11/2022 Number of Places Lived in the Last Year Not on f ile 09/11/2022 In the last 12 months, was t here a time when you did not have a steady place to sleep or slept in a assisted (including now)? No 09/11/2022 Housing Stability Vital Sign Answer Isac e Recorded In the last 12 months, was t here a time when you were not able to pay the mortgage or rent on time? No 09/18/2024 In the past 12 months, how m any times have you moved where you were living? 0 09/18/2024 At any time in the past 12 m onths, were you homeless or living in a assisted (including now)? No 09/18/2024 Food Insecurity Answer Date Recorded Within the past 12 months, y ou worried that your food would run out before you got the money to buy more. 1 09/18/2024 Within the past 12 months, t he food you bought just didn't last and you didn't have money to get more. 1 09/18/2024 Education Answer Date Recorded What is the [...] file Not on file Not on file Last Filed Vital Signs Vital Sign Reading Time Taken Comments Blood Pressure 110/66 09/18/2024 3:52 PM EDT Pulse 88 09/18/2024 3:52 PM EDT Temperature 37.3 C (99.1 F) 03/08/2024 3:42 PM EST Respiratory Rate 18 02/26/2021 9:11 AM EDT Oxygen Saturation 97% 09/18/2024 3:52 PM EDT Inhaled Oxygen Concentration - - Weight 132.5 kg (292 lb) 09/18/2024 3:52 PM EDT Height 160 cm (5' 3 ) 09/18/2024 3:52 PM EDT Body Mass Index 51.73 09/18/2024 3:52 PM EDT Plan of Treatment Health Maintenance Due Date Last Done Comments Varicella vaccine (1 of 2 - 13+ 2-dose series) 01/30/1993 HIV screen 01/30/1995 Hepatitis C screen 01/30/1998 DTaP/Tdap/Td vaccine (1 - Tdap) 01/30/1999 Hepatitis B vaccine (1 of 3 - 19+ 3-dose series) 01/30/1999 Pneumococcal 0-49 years Vaccine (1 of 2 - PCV) 01/30/1999 COVID-19 Vaccine (1 - season) 2023 A1C test (Diabetic or Prediabetic) 08/20/2024 08/21/2023, 09/11/2022 Breast cancer screen 09/21/2024 09/21/2022 Flu vaccine (#1) 11/23/2024 03/06/2020, 04/2019, 02/09/2018, Additional history exists Depression Monitoring 09/18/2025 09/18/2024, 025 Lipids 09/12/2027 09/11/2022, 01/23, 08/25/2020, Additional history exists Diabetes screen Discontinued 08/21/2023, 09/11/2022 HPV vaccine Aged Out No longer eligi ble based on patient's age to complete this topic Hepatitis A vaccine Aged Out No longe r eligible based on patient's age to complete this topic Hib vaccine Aged Out No longer eligi ble based on patient's age to complete this topic Meningococcal (ACWY) vaccine Aged Out No longer eligible based on patient's age to complete this topic Meningococcal B vaccine Aged Out No l onger eligible based on patient's age to complete this topic Polio vaccine Aged Out No longer elig ible based on patient's age to complete this topic Procedures Procedure Name Priority Date/Time Associated Diagnosis Comments HEMOGLOBIN A1C Routine 08/21/2023 1:20 PM EDT Pre-diabetes HM MAMMOGRAPHY Routine 09/21/2022 3:53 PM EDT LIPID PANEL Routine 09/11/2022 10:32 AM EDT Screening cholesterol level from Last 3 Months or Most Recently Relevant to Health Maintenance Results * Hemoglobin A1C (08/21/2023 1:20 PM EDT) Hemoglobin A1C 5.8 4.0 - 6.0 % 08/21/2023 1:20 PM EDT [facility] [employer] Estimated Avg Glucose 120 mg/dL 08/21/2023 1:20 PM EDT [facility] [employer] Comment: The ADA and AACC recommend providing the estimated average glucose result to permit better patient understanding of their HBA1c result. BLOOD SPECIMEN / Unknown 08/21/2023 1:20 PM EDT 08/21/2023 1:23 PM EDT Mars Back CHEMISTRY ORDERABLES Final Resul t [facility] [address] [place], [place] [address] [phone] [place] [id number] [place] [id number] [phone] * HM MAMMOGRAPHY (09/21/2022 3:53 PM EDT) Anatomical Region Laterality Modality Other Historical Provider HEALTH MAINTENANCE Final Result * Lipid Panel (09/11/2022 10:32 AM EDT) Cholesterol 189 <200 mg/dL 09/11/2022 10:32 AM EDT [facility] Comment: Cholesterol Guidelines: <200 Desirable 200-240 Borderline >240 Undesirable HDL 54 >40 mg/dL 09/11/2022 10:32 AM EDT [facility] Comment: HDL Guidelines: <40 Undesirable 40-59 Borderline >59 Desirable LDL Cholesterol 111 0 - 130 mg/dL 09/11/2022 10:32 AM EDT [facility] Comment: LDL Guidelines: <100 Desirable 100-129 Near to/above Desirable 130-159 Borderline >159 Undesirable Direct (measured) LDL and calculated LDL are not interchangeable tests. Chol/HDL Ratio 3.5 <5 09/11/2022 10:32 AM EDT [facility] Comment: Triglycerides 118 <150 mg/dL 09/11/2022 10:32 AM EDT [facility] Comment: Triglyceride Guidelines: <150 Desirable 150-199 Borderline 200-499 High >499 Very high Based on AHA Guidelines for fasting triglyceride, January 2012. BLOOD SPECIMEN / Unknown 09/11/2022 10:32 AM EDT 09/11/2022 10:33 AM EDT us Mars Sow MD CHEMISTRY ORDERABLES Final Resul t [facility] [address] [place] [address], [facility] [phone] [facility] [address] [place] [address], [facility] [phone] from Last 3 Months or Most Recently Relevant to Health Maintenance Insurance [facility] Care Teams Tar Worker Relationship Specialty Start Date End Date Mars Sow MD [address] [place] [id number] PCP - General Internal Medicine 03/26/11
--- OUTSIDE RECORDS SUMMARY | 2024-11-22 15:38 | XMS_ITS | Clinical Summary ---
Author Organization [facility] Address [id number] [address] [place] [address] Care Team Providers Care Web Site Manager Name Role Phone Juanjose, Mars WALTON Primary Care Provider [phone] Allergies Active Allergy Reactions Criticality Noted Date Comments Gordon Inhibitors Anaphylaxis,Rash,Swelling High 2019 Other Reaction(s): Swelling of throat Angioedema Back of throat could still breath Lisinopril Anaphylaxis High 03/08/2023 Medications albuterol-budes onide 90-80 mcg/actuation HFA aerosol inhaler 1 puff(s), Inhalation, QID for wheezing, 18 gram, Refill(s) 0 06/02/2020 Active busPIRone (BUSPAR) 7.5 mg split tablet Take 2 split tablet (15 mg total) by mouth in the morning and 2 split tablet (15 mg total) before bedtime. 09/29/2019 Active amLODIPine (NORVASC) 10 mg tablet Take 1 tablet (10 mg total) by mouth in the morning. 04/22/2020 Active ascorbic acid, vitamin C, (VITAMIN C) 250 mg tablet Take 1 tablet (250 mg total) by mouth in the morning. Active atenoloL (TENORMIN) 25 mg tablet Take 1 tablet (25 mg total) by mouth in the morning. 04/22/2020 Active cyclobenzaprine (FLEXERIL) 10 mg tablet Take 1 tablet (10 mg total) by mouth in the morning. 02/12/2023 Active DULoxetine (CYMBALTA) 60 mg capsule Take 2 capsules (120 mg total) by mouth in the morning. 09/27/2022 Active fluticasone propionate (FLONASE) 50 mcg/actuation nasal spray 1 spray as needed. 04/30/2022 Active guaiFENesin (MUCINEX) 600 mg tablet extended release 12hr Take 2 tablets (1,200 mg total) by mouth as needed. 05/10/2020 Active hydrOXYzine (ATARAX) 25 mg tablet Take 1 tablet (25 mg total) by mouth as needed. 09/13/2022 Active ibuprofen (MOTRIN) 800 mg tablet Take 1 tablet (800 mg total) by mouth in the morning and 1 tablet (800 mg total) before bedtime. 03/04/2023 Active ondansetron (ZOFRAN) 4 mg tablet Take 1 tablet (4 mg total) by mouth as needed. 01/27/2023 Active pantoprazole (PROTONIX) 40 mg EC tablet Take 1 tablet (40 mg total) by mouth in the morning. 10/19/2022 Active montelukast (SINGULAIR) 10 mg tablet Take 1 tablet (10 mg total) by mouth nightly. Active baclofen (LIORESAL) 10 mg tablet Take 1 tablet (10 mg total) by mouth as needed for muscle spasms. Active blank primrose/linole ic/g-lenic (PRIMROSE OIL ORAL) Take by mouth. Active DRESS,COLLAGN-S [id number] TOP Apply topically. Active psyllium (METAMUCIL) powder Take 1 packet by mouth in the morning. Active iron,carb/vit C/vit B12/folic (IRON 100 PLUS ORAL) Take 20 mg by mouth. Active cholecalciferol , vitD3,/vit K2 (VITAMIN D3-VITAMIN K2 ORAL) Take by mouth. Active jxksphof-tdkc-X A-calcium &mins (THERAGRAN-M) 9 mg iron-400 mcg tablet Take 1 tablet by mouth in the morning. Active Family History Medical History Relation Name Comments Heart attack Brother Heart attack Father Leukemia Father Lung cancer Father Skin cancer Father Cancer Maternal Grandmother Lymphoma Maternal Grandmother Lung cancer Maternal Uncle Breast cancer Mother Diabetes Mother Relation Name Status Comments Brother Father Maternal Grandmother Maternal Uncle Mother Social History Tobacco Use Types Packs/Day Years Used Date Smoking Tobacco: Former Cigarettes Q uit: 2013 Smokeless Tobacco: Never Tobacco Cessation:Counseling Given: Not Answered Alcohol Use Standard Drinks/Week Comments Not Asked 0 (1 standard drink = 0.6 oz pur e alcohol) rarely Childcare Answer Date Recorded Childcare Unknown 10/04/2018 Employment Answer Date Recorded Employment Unknown 10/04/2018 Hunger Screening Answer Date Recorded Within the past 12 months we worried whether our food would run out before we got money to buy more. Never True 06/27/2023 Within the past 12 months th e food we bought just didn't last and we didn't have money to get more. Never True 06/27/2023 Purpose - Life Answer Date Recorded Purpose and direction in life Unknown Comments Unknown Sex and Gender Information Value Date Recorded Sex Assigned at Not on file Legal Sex Female 2:04 AM EST Gender Identity Not on file Sexual Orientation Not on file Last Filed Vital Signs Vital Sign Reading Time Taken Comments Blood Pressure - - Pulse - - Temperature - - Respiratory Rate - - Oxygen Saturation - - Inhaled Oxygen Concentration - - Weight 133.4 kg (294 lb) 06/27/2023 12:11 PM EST Height 160 cm (5' 3 ) 06/27/2023 12:11 PM EST Body Mass Index 52.08 06/27/2023 12:11 PM EST Plan of Treatment Health Maintenance Due Date Last Done Comments Depression Screening 1992 DTaP,Tdap and Td Vaccines (1 - Tdap) 01/30/1999 Pap Smear 01/30/2001 Adult BMI Screening 06/26/2024 06/27/2023 Tobacco Screening 06/26/2024 06/27/2023 Influenza Vaccine 12/24/2024 03/06/2020, , 02/09/2018, Additional history exists Medical Devices Not on file Insurance [employer] Care Teams Web Site Manager Relationship Specialty Start Date End Date Back, MD aMrs [address] [place] [address] PCP - General Internal Medicine 09/13/16
--- OUTSIDE RECORDS SUMMARY | 2024-11-22 15:38 | XMS_ITS | Encounter Summary ---
Author Organization [facility] Address [address], [address] [place] [address] Care Team Providers Care Director Database Name Role Phone Mars Sow MD Primary Care Provider [phone] Reason for Visit * Reason Comments Medication Refill Encounter Details Date Type Department Care Team (Late st Contact Info) Description 05/31/[address] [facility] [address] [place] [address] Mars Sow MD [address] [place] [address] Medication Refill Social History Tobacco Use Types [...] like food, housing, medical care, and heating? Somewhat hard 09/26/2020 PHQ-2 Answer Date Recorded PHQ-9 Total Score 1 12/02/2020 Hunger Vital Sign Answer Date Recorded Within the past 12 months, y ou worried that your food would run out before you got the money to buy more. Never true 09/27/19 21 Within the past 12 months, t he food you bought just didn't last and you didn't have money to get more. Never true 09/26/2020 PRAPARE - Transportation Answer Date Re corded Lack of Transportation (Medical) No 05/03/2019 Lack of Transportation (Non-Medical) No 05/03/2019 Education Answer Date Recorded What is the [...] as of this encounter Visit Diagnoses Diagnosis Essential hypertension Unspecified essential hypertension documented in this encounter Care Teams Director Database Relationship Specialty Start Date End Date Juanjose, MD Mars [address] [place] [address] PCP - General Internal Medicine 03/26/11 documented as of this encounter
--- OUTSIDE RECORDS SUMMARY | 2024-11-22 15:38 | XMS_ITS | Encounter Summary ---
Author Organization [facility] Address [address], [address] [place] [address] Care Team Providers Care Tissue Inserter Name Role Phone Mars Sow MD Primary Care Provider [phone] Reason for Visit * Reason Comments Medication Refill Encounter Details Date Type Department Care Team (Late st Contact Info) Description 05/07/2021 Refill [facility] [address] [place] [address] Mars Sow MD [address] [place] [address] Medication Refill Social History Tobacco Use [...] thoracic back pain documented in this encounter Care Teams Tissue Inserter Relationship Specialty Start Date End Date Mars Sow MD [address] [place] [address] PCP - General Internal Medicine 03/26/11 documented as of this encounter
--- OUTSIDE RECORDS SUMMARY | 2024-11-22 15:38 | XMS_ITS | Encounter Summary ---
Author Organization [facility] Address [address], [address] [place] [address] Care Team Providers Care Film And Video Editor Name Role Phone Mars Sow MD Primary Care Provider Reason for Visit * Reason Comments Medication Refill Encounter Details Date Type Department Care Team (Late st Contact Info) Description 10/04/2019 Refill [facility] [address] [phone] Mars Sow MD [address] [place] [address] Medication Refill Social History Tobacco Use Types Packs/Day Years Used Date Smoking Tobacco: Former Cigarettes Q uit: 06/22/2013 Smokeless Tobacco: Never Alcohol Use Standard Drinks/Week Comments No 0 (1 standard drink = 0.6 oz pur e alcohol) Overall Financial Resource Strain (CARDIA) Answe r Date Recorded Difficulty of Paying Living Expenses Somewhat joyce rd 05/03/2019 PHQ-2 Answer Date Recorded PHQ-2 Score 0 05/03/2019 Hunger Vital Sign Answer Date Recorded Worried About Running Out of Food in the Last Ye ar Never true 05/03/2019 Ran Out of Food in the Last Year Never true 05/03/2019 PRAPARE - Transportation Answer Date Re corded [...] Unspecified essential hypertension documented in this encounter Additional Health Concerns Infection Onset Date Last Indicated Resolved Time COVID-19 (Rule Out) 09/12/2020 09/12/2020 09/14/19 21 11:00 AM EDT COVID-19 (Rule Out) 10/02/2020 10/02/2020 10/04/19 11:37 AM EDT documented as of this encounter Care Teams Film And Video Editor Relationship Specialty Start Date End Date Mars Sow MD [address] [place] [address] PCP - General Internal Medicine 03/26/11 documented as of this encounter
--- OUTSIDE RECORDS SUMMARY | 2024-11-22 15:38 | XMS_ITS | Encounter Summary ---
Author Organization [facility] Address [address], [address] [place] [address] Care Team Providers Care Hand Sample Maker Name Role Phone Mars Sow MD Primary Care Provider [phone] Reason for Visit * Reason Comments Medication Refill Encounter Details Date Type Department Care Team (Late st Contact Info) Description 04/03/2021 Refill [facility] [address] [phone] Mars Sow MD [address] [place] [address] Medication Refill Social History Tobacco Use [...] on filedocumented in this encounter Care Teams Hand Sample Maker Relationship Specialty Start Date End Date Mars Sow MD [address] [place] [address] PCP - General Internal Medicine 03/26/11 documented as of this encounter
--- NOTE | 2024-11-22 15:39 | US_ITS ---
[address] [address] Patient Name: SUAD SULLIVAN MRN: [id number] date: 1980 Sex: F Assigned Patient Location: [facility] Current Patient Location: Accession/Order Number: [id number] Exam Date: 11/23/2024 09:51 Report Date: 11/23/2024 09:56 At the request of: NOE BLACKMON DO Procedure: US pelvis w/ transvaginal Pelvic ultrasound. Reason for exam: Pelvic pain. Comparison: none Technique: Transabdominal imaging of the uterus and ovaries was performed. Transvaginal imaging of the uterus and ovaries was also obtained. Additional spectral Doppler analysis of the ovaries was also obtained. Findings: Uterus has been removed. Right ovary measures 2.7 x 2.4 x 2.6 cm. The left ovary measures 6.0 x 3.8 x 5.9 cm. Right ovary demonstrates no adnexal mass or cyst. Normal arterial and venous Doppler waveforms are noted. The left ovary demonstrates a cluster of follicles with what appears to be a corpus luteum/hemorrhagic cyst noted measuring 3.3 cm in greatest dimension. Normal arterial and venous Doppler waveforms are noted. US/US pelvis w/ transvaginal Impression: Cluster of follicles involving the left ovary with what appears to be a corpus luteum/hemorrhagic cyst noted measuring 3.3 cm in greatest dimension. Repeat ultrasound in 6-12 weeks is suggested to confirm resolution. Impression dictated by: Fredo Parekh Jr., D.O. 11/23/2024 9:56 AM Dictation Location: [place] [address] Electronically authenticated by: [id number] Date: 11/23/2024 09:56
--- NOTE | 2024-11-22 15:39 | MM_ITS ---
Patient Name: SUAD SULLIVAN MR#: [id number] : 1980 Exam Date: 11/22/2024 Ordering Doctor: DR NOE BLACKMON . RADIOLOGY REPORT PROCEDURE: MM TOMOSYNTHESIS SCREENING BI COMPARISON: MG MAMM SCREEN 3D LOU CAD, 09/21/2022. MG MAMM RT DIAG FU, 03/11/2020. MG MAMM SCREEN LOU W CAD, 02/12/2020. INDICATIONS: Screening mammogram Calculator Name NCI Breast Cancer Risk Assessment Tool 5 Year Breast Cancer Risk 1.60% Lifetime Breast Cancer Risk 18.80% Personal Breast Cancer No Personal Ovarian Cancer No Treatments None Family Cancers Mother with breast cancer at age 73; Father with leukemia cancer at age 78; Father with lung cancer at age 80; Grandmother-maternal with lymphoma cancer at age 80; Uncle-maternal with lung cancer at age 60. LOCATION: [facility] BREAST COMPOSITION: The breasts are heterogeneously dense, which may obscure small masses. FINDINGS: RIGHT BREAST: No significant suspicious finding. Benign-appearing calcifications are present. LEFT BREAST: No significant suspicious finding. Benign-appearing calcifications are present. DIAGNOSTIC CATEGORY 2--BENIGN FINDING: RECOMMENDATIONS: ROUTINE MAMMOGRAM AND CLINICAL EVALUATION IN 12 MONTHS. PLEASE NOTE: A NORMAL MAMMOGRAM DOES NOT EXCLUDE THE POSSIBILITY OF BREAST CANCER. A CLINICALLY SUSPICIOUS PALPABLE LUMP SHOULD BE BIOPSIED. Dictated by: Ronald Dowell MD on 11/22/2024 at 16:58 Approved by: Ronald Dowell MD on 11/22/2024 at 17:03
== END 2024-11-22 15:35 | disposition home or self-care (01) ==
LOC: MAMMO 15:34
PROVIDERS: PCP Internal Medicine; Visit Provider Obstetrics & Gynecology
DX: Z12.31 Encounter for screening mammogram for malignant neoplasm of breast (principal); R10.2 Pelvic and perineal pain; Z80.3 Family history of malignant neoplasm of breast; Z80.6 Family history of leukemia; Z80.1 Family history of malignant neoplasm of trachea, bronchus and lung; Z80.7 Family history of other malignant neoplasms of lymphoid, hematopoietic and related tissues; N83.292 Other ovarian cyst, left side
CPT/HCPCS: 76830; 76856; 77063; 77067

== ENCOUNTER 2024-12-04 14:46 | Outpatient (OUT) | payer BC, SELFPAY ==
--- OUTSIDE RECORDS SUMMARY | 2024-12-04 16:28 | XMS_ITS | CCD ---
Author Organization [facility] Care Team Providers Care Salesperson Fashion Accessories Name Role Phone PANCHO ELLIS Unavailable Unavailable Back, Mars Primary Care Provider [phone] Back, Mars Primary Care Provider Back Mars WALTON Primary Care Provider BACK, MARS Referring Unavailable BACK, MARS Primary Care Unavailable BACK, MARS Referring Unavailable BACK, MARS Primary Care Unavailable BACK, MARS Referring Unavailable BACK, MARS Primary Care Unavailable BACK, MARS Primary Care Unavailable BACK, MARS Referring Unavailable BACK, MARS Primary Care Unavailable BACK, MARS Referring Unavailable BACK, MARS Primary Care Unavailable BACK, MARS Referring Unavailable Back Mars WALTON Primary Care Provider [phone] Molly Frost Unavailable GARY ., DR LIU Attending Unavailable MISC, DR MILLER Primary Care Unavailable GARY ., DR LIU Consulting Unavailable GARY ., DR LIU Admitting Unavailable GARY ., DR LIU Admitting Unavailable MISC, DR MILLER Primary Care Unavailable GARY ., DR LIU Attending Unavailable GARY ., DR LIU Consulting Unavailable ZIEBER, DR TORIE Blum Consulting Unavailable GARY ., DR LIU Attending Unavailable WEST, DR MADIE Al Consulting Unavailable MISC, DR MILLER Primary Care Unavailable GARY ., DR LIU Admitting Unavailable GARY ., DR LIU Consulting Unavailable REINECK, DR PAM Carlson Attending Unavailabl e REINECK, DR PAM Carlson Consulting Unavailabl e REINECK, DR PAM Carlson Admitting Unavailabl e MISC, DR MILLER Primary Care Unavailable Back Mars WALTON Primary Care Provider BACKMARS Referring Unavailable BACK, MARS Primary Care Unavailable Back Mars WALTON Primary Care Provider Back John WALTON Primary Care Provider MARKUS VEGA Attending Unavailable Allergies Allergy Classification Reported Allergen(s) Allergy Type Date of Onset Reaction(s) Facility Angiotensin Converting Enzyme (ROMMEL) Inhibitors (10 sources) Angiotensin Converting Enzyme (Rommel) Inhibitors Drug Allergy 10-01-19 [facility] Work Phone: MITE EXTRACT (10 sources) MITE EXTRACT Drug Allergy 06-27-19 [facility] Mold Extract (10 sources) Mold Extract Drug Allergy 06-27-19 21 [facility] (1 source) No Known Medication Allergies; Translations: [No Known Medication Allergies] Propensity to adverse reactions to drug (disorder) [facility] Repository (9 sources) Angiotensin Converting Enzyme (Rommel) Inhibitors Propensity to adverse reactions to drug 10-01-19 [place] (5 sources) MITE EXTRACT Drug Allergy 06-27-19 [facility] (12 sources) Mold Extract Drug Allergy 06-27-19 21 [facility] (2 sources) Lisinopril Drug Allergy 03-08-20 23 anaphylaxis [facility] Other (1 source) Amino Acids Drug Allergy [facility] Repository (1 source) Angiotensin Converting Enzyme (Rommel) Inhibitors Drug allergy (disorder) [facility] Repository (1 source) Angiotensin-con verting enzyme inhibitor agent Propensity to adverse reactions to drug 09-29-19 20 Anaphylaxis, Rash, Swelling [facility] (7 sources) Angiotensin-con verting enzyme inhibitor agent Drug Intolerance 09-29-19 20 Anaphylaxis, Rash, Swelling [facility] (7 sources) House dust mite Propensity to adverse reactions 06-27-19 [facility] (7 sources) Lisinopril Propensity to adverse reactions 09-29-19 20 Swelling, Anaphylaxis [facility] Work Phone: (7 sources) MITE EXTRACT Drug Allergy 02-03-20 23 Shortness of breath [facility] Medications Current Medications Medication Drug Class(es) Dates Sig (Normalized) Sig (Original) [id number] 200 actuat albuterol 0.09 mg/actuat metered dose inhaler (20 sources) beta2-Adrenergic Agonist Start: 09-17-2020 albuterol sulfate HFA 108 (90 Base) MCG/ACT inhaler 4 puff Start: 05-23-2020 albuterol (PRO VENTIL) (2.5 MG/3ML) 0.083% nebulizer solution Indications: SOB (shortness of breath) Take 3 mLs by nebulization every 4 hours as needed for Wheezing or Shortness of Breath 120 each 3 05/23/2020 Active Start: 10-23-2018 albuterol (PRO VENTIL) (2.5 MG/3ML) 0.083% nebulizer solution Indications: SOB (shortness of breath) Take 3 mLs by nebulization every 4 hours as needed for Wheezing or Shortness of Breath 120 each 3 10/23/2018 Active albuterol-budesonide 90-80 mcg/actuation HFA aerosol inhaler (1 source) Start: 06-02-2020 take 1 puff(s) by inhalation four times daily for wheezing albuterol-budesonide 90-80 mcg/actuation HFA aerosol inhaler 1 puff(s), Inhalation, QID for wheezing, 18 gram, Refill(s) 0 0 06/02/2020 Active amLODIPine 10 mg oral tablet (20 sources) Dihydropyridine Calcium Channel Jorge Start: 2020 take 1 tablet by mouth in the morning amLODIPine (Norvasc) 10 MG tablet Take 10 mg by mouth in the morning. 04/19/2022 Active amoxicillin 500 mg oral tablet (5 sources) Penicillin-class Antibacterial Start: 01-18-2023 take 1 tablet by mouth three times daily amoxicillin (AMOXIL) 500 MG tablet Indications: Acute bacterial sinusitis Take 1 tablet by mouth 3 times daily 30 tablet 0 01/18/2023 Active Start: 12-02-2020 take 1 tablet by oralia th three times daily Amoxicillin 500 MG TABS Indications: Acute bacterial sinusitis Take 1 tablet by mouth 3 times daily 30 tablet 0 12/02/2020 Active amoxicillin 875 mg / clavulanate 125 mg oral tablet (2 sources) Penicillin-class Antibacterial Start: 08-19-2024 take 1 tablet by mouth every twelve hours Amoxicillin-Pot Clavulanate 875-125 mg tablet Active 1 TAB PO Every 12 hours 14 August 19, 2024 12:00am Start: 04-30-2022 take 1 tablet by oralia th every twelve hours Amoxicillin-Pot Clavulanate 875-125 MG 1 tablet Orally every 12 hrs for 10 day(s) Apr, Active ascorbic acid 250 mg oral tablet (8 sources) Vitamin C take 1 tablet by mouth in the morning Ascorbic Acid (vitamin C) 250 MG tablet Take 250 mg by mouth in the morning. Active atenolol 25 mg oral tablet (20 sources) beta-Adrenergic Jorge Start: 0 take 1 tablet by mouth in the morning atenolol (Tenormin) 25 MG tablet Take 1 tablet by mouth in the morning. 09/23/2022 Active baclofen 10 mg oral tablet (1 source) gamma-Aminobutyr ic Acid-ergic Agonist baclofen (LIORESAL) 10 mg tablet Take 1 tablet (10 mg total) by mouth as needed for muscle spasms. 0 Active 60 actuat budesonide 0.16 mg/actuat / formoterol fumarate 0.0045 mg/actuat metered dose inhaler (18 sources) Corticosteroid, beta2-Adrenergic Agonist Start: 0 take 2 puff(s) by mouth twice daily budesonide-formoterol (SYMBICORT) 160-4.5 MCG/ACT AERO Indications: Mild intermittent asthma without complication Inhale 2 puffs into the lungs 2 times daily Rinse mouth after use. 1 Inhaler 3 12/17/2019 Active busPIRone hydrochloride 15 mg oral tablet (20 sources) Start: 2 End: 4 take 1 tablet by mouth in the morning, then take 1 tablet by mouth in the evening, then take 1 tablet by mouth at bedtime busPIRone (Buspar) 15 MG tablet Take 1 tablet by mouth in the morning and 1 tablet in the evening and 1 tablet before bedtime. 04/01/2022 Active Start: 01-06-2020 busPIRone (BUS PAR) 15 MG tablet Indications: Depression with anxiety TAKE 1 TABLET THREE TIMES A DAY 270 tablet 3 10/19/2022 Active Start: 09-29-2019 take 2 tablets by mo ut in the morning busPIRone (BUSPAR) 7.5 mg split tablet Take 2 split tablet (15 mg total) by mouth in the morning and 2 split tablet (15 mg total) before bedtime. 0 09/29/2019 Active cholecalciferol, vitD3,/vit K2 (VITAMIN D3-VITAMIN K2 ORAL) (1 source) cholecalciferol, vitD3,/vit K2 (VITAMIN D3-VITAMIN K2 ORAL) Take by mouth. 0 Active cyclobenzaprine hydrochloride 10 mg oral tablet (20 sources) Muscle Relaxant Start: 08-20-19 take 1 tablet by mouth once daily at bedtime as needed Cyclobenzaprine 10 mg tablet Active 10 MG PO Daily at bedtime as needed August 19, 2024 12:00am Start: 09-30-2022 take 1 tablet by oralia three times daily as needed cyclobenzaprine (Flexeril) 10 MG tablet Take 10 mg by mouth 3 (three) times a day as needed. 09/30/2022 Active Start: 09-30-2022 take 1 tablet by oralia in the morning cyclobenzaprine (FLEXERIL) 10 mg tablet Take 1 tablet (10 mg total) by mouth in the morning. 0 02/12/2023 Active Start: 04-20-2019 take 1 tablet by oralia twice daily as needed for muscle spasms cyclobenzaprine (FLEXERIL) 10 MG tablet Indications: Chronic right-sided thoracic back pain TAKE 1 TABLET BY MOUTH TWICE DAILY NEEDED FOR MUSCLE SPASMS 30 tablet 5 11/20/2020 Active take 1 tablet by oralia three times daily Flexeril 10 MG 1 tablet Orally Three times a day for 30 day(s) Active DRESS,[id number] MC TOP (1 source) DRESS,COLLAGN-SI [id number] TOP Apply topically. 0 Active DULoxetine 60 mg delayed release oral capsule (20 sources) Serotonin and Norepinephrine Reuptake Inhibitor S t a r t : 0 4 - 2 7 - 2 0 2 5 take 1 capsule by mouth once daily Duloxetine 60 mg capsule,delayed release(DR/EC) Active 60 MG PO Daily August 19, 2024 12:03pm Start: 11-23-2023 Duloxetine Act danette MG PO November 23, 2023 12:00am Start: 09-27-2022 DULoxetine (CY MBALTA) 60 MG extended release capsule Indications: Depression with anxiety TAKE 2 CAPSULES DAILY 180 capsule 1 03/28/2023 Active Start: 06-27-2019 take 1 capsule by mo [facility] once daily DULoxetine (CYMBALTA) 60 MG extended release capsule Indications: Depression with anxiety TAKE 1 CAPSULE BY MOUTH DAILY 90 capsule 1 01/12/2021 Active estradiol 1 mg oral tablet (10 sources) Estrogen Start: 11-23-2023 estradiol (Est race) 1 MG tablet Indications: Hormone imbalance , S/P hysterectomy TAKE 1 TABLET IN THE MORNING 90 tablet 3 03/02/2024 Active Start: 02-14-2023 End: 02-14-2024 take 1 tablet by mouth in the morning estradioL (ESTRACE) 0.5 mg tablet Take 1 tablet (0.5 mg total) by mouth in the morning. 0 02/14/2023 02/14/2024 Active blank primrose/linoleic/g-lenic (PRIMROSE OIL ORAL) (1 source) blank primrose/linoleic/g-lenic (PRIMROSE OIL ORAL) Take by mouth. 0 Active Famotidine (18 sources) Histamine-2 Receptor Antagonist Famotidine (PEPCID P O) Take by mouth 0 Active fluticasone propionate 0.05 mg/actuat metered dose nasal spray (20 sources) Corticosteroid Sta rt: take 1 spray(s) nasal route in the morning fluticasone (Flonase) 50 MCG/ACT nasal spray Administer 1 spray into each nostril in the morning. 04/30/2022 Active Start: 04-30-2022 fluticasone pr opionate (FLONASE) 50 mcg/actuation nasal spray 1 spray as needed. 0 04/30/2022 Active Start: 04-30-2022 take 2 spray(s) nasa l route once daily Fluticasone Propionate 50 MCG/ACT 2 sprays Nasally Once a day for 14 day(s) Apr, Active Start: 08-28-2020 End: 08-28-2021 take 2 puff(s) by inhalation twice daily fluticasone (FLOVENT HFA) 110 MCG/ACT inhaler Inhale 2 puffs into the lungs 2 times daily 1 Inhaler 5 08/28/2020 08/28/2021 Active Start: 05-03-2017 take 1-2 spray(s) na jadiel route once daily at bedtime FLONASE 50 mcg 1-2 sprays each NOSTRIL QHS for 21 days Apr, Active gabapentin 400 mg oral capsule (17 sources) Anti-epileptic Agent Start: 09-15-2020 End: 01-16-2021 take 1 capsule by mouth three times daily gabapentin (NEURONTIN) 400 MG capsule Indications: Peripheral polyneuropathy TAKE 1 CAPSULE BY MOUTH THREE TIMES DAILY 90 capsule 5 09/15/2020 Active Start: 02-25-2020 End: 06-27-2020 take 1 capsule by mouth three times daily gabapentin (NEURONTIN) 400 MG capsule Indications: Peripheral polyneuropathy TAKE 1 CAPSULE BY MOUTH THREE TIMES DAILY 90 capsule 5 02/25/2020 Active Start: 06-19-2019 End: 10-18-2019 take 1 capsule by mouth three times daily gabapentin (NEURONTIN) 400 MG capsule Indications: Peripheral polyneuropathy Take 1 capsule by mouth 3 times daily for 121 days. 90 capsule 3 06/19/2019 10/18/2019 Active Gabapentin Activ e 12 hr guaiFENesin 600 mg extended release oral tablet (1 source) Start: 05-10-2020 take 2 tablets by mouth every twelve hours as needed guaiFENesin (MUCINEX) 600 mg tablet extended release 12hr Take 2 tablets (1,200 mg total) by mouth as needed. 0 05/10/2020 Active hydroCHLOROthiazide 12.5 mg / lisinopril 10 mg oral tablet (1 source) Thiazide Diuretic, Angiotensin Converting Enzyme Inhibitor Start: 03-26-2019 take 1 tablet by mouth once daily lisinopril-hydro chlorothiazide (PRINZIDE;ZESTOR ETIC) 10-12.5 MG per tablet Indications: Essential hypertension TAKE 1 TABLET BY MOUTH DAILY 30 tablet 5 03/26/2019 Active hydrOXYzine hydrochloride 25 mg oral tablet (7 sources) Antihistamine Start: 09-13-2022 take 1 tablet by mouth every eight hours as needed for anxiety hydrOXYzine HCl (Atarax) 25 MG tablet Take 25 mg by mouth every 8 (eight) hours if needed for anxiety. 09/13/2022 Active ibuprofen 800 mg oral tablet (20 sources) Nonsteroidal Anti-inflammatory Drug Start: 09-28-2022 take 1 tablet by mouth in the morning, then take 1 tablet by mouth in the evening, then take 1 tablet by mouth at bedtime ibuprofen 800 MG tablet Take 1 tablet by mouth in the morning and 1 tablet in the evening and 1 tablet before bedtime. 09/28/2022 Active Start: 09-28-2022 take 1 tablet by oralia th twice daily Ibuprofen 800 mg tablet Active 800 MG PO Twice daily August 19, 2024 12:00am Start: 01-12-2021 take 1 tablet by oralia th three times daily as needed for pain ibuprofen (ADVIL;MOTRIN) 800 MG tablet Indications: Polyarthralgia TAKE 1 TABLET BY MOUTH THREE TIMES DAILY NEEDED FOR PAIN 90 tablet 1 01/12/2021 Active Start: 11-14-2020 take 1 tablet by oralia th three times daily as needed for pain ibuprofen (ADVIL;MOTRIN) 800 MG tablet Indications: Polyarthralgia TAKE 1 TABLET BY MOUTH THREE TIMES DAILY NEEDED FOR PAIN 90 tablet 1 11/14/2020 Active Start: 07-14-2020 take 1 tablet by oralia th three times daily as needed for pain ibuprofen (ADVIL;MOTRIN) 800 MG tablet Indications: Polyarthralgia TAKE 1 TABLET BY MOUTH THREE TIMES DAILY NEEDED FOR PAIN 90 tablet 1 09/15/2020 Active Start: 03-14-2020 take 1 tablet by oralia th three times daily as needed for pain ibuprofen (ADVIL;MOTRIN) 800 MG tablet Indications: Polyarthralgia TAKE 1 TABLET BY MOUTH THREE TIMES DAILY NEEDED FOR PAIN 90 tablet 1 03/14/2020 Active Start: 06-04-2019 take 1 tablet by oralia th three times daily as needed for pain ibuprofen (ADVIL;MOTRIN) 800 MG tablet Indications: Polyarthralgia TAKE 1 TABLET BY MOUTH THREE TIMES DAILY NEEDED FOR PAIN 90 tablet 2 06/04/2019 Active iron,carb/vit C/vit B12/folic (IRON 100 PLUS ORAL) (1 source) iron,carb/vit C/ vit B12/folic (IRON 100 PLUS ORAL) Take 20 mg by mouth. 0 Active 200 actuat levalbuterol 0.045 mg/actuat metered dose inhaler (19 sources) beta2-Adrenergic Agonist Start: 06-12-19 19 take 2 puff(s) by inhalation every four hours as needed for wheezing levalbuterol (XOPENEX HFA) 45 MCG/ACT inhaler Indications: Mild intermittent asthma without complication Inhale 2 puffs into the lungs every 4 hours as needed for Wheezing 1 Inhaler 5 06/12/2018 Active Start: 06-12-2018 take 2 puff(s) by in halation every four hours as needed for wheezing levalbuterol (XOPENEX HFA) 45 MCG/ACT inhaler Indications: Mild intermittent asthma without complication Inhale 2 puffs into the lungs every 4 hours as needed for Wheezing 1 Inhaler 5 06/12/2018 Active 24 hr metFORMIN hydrochloride 500 mg extended release oral tablet (12 sources) Biguanide Start: 03-02-2024 metFORMIN XR ( Glucophage-XR) 500 MG 24 hr tablet Indications: Encounter for weight management , Hormone imbalance TAKE 1 TABLET IN THE EVENING. TAKE WITH MEALS. DO NOT CRUSH, CHEW OR SPLIT 90 tablet 3 03/02/2024 Active Start: 11-23-2023 End: 11-23-2023 take 1 tablet by mouth every twenty-four hours Metformin 500 mg tablet extended release 24 hr Discontinued MG PO November 23, 2023 12:00am November 23, 2023 3:39pm Start: 11-23-2023 End: 11-23-2023 Metformin Discontinued MG PO November 23, 2023 12:00am November 23, 2023 3:39pm Start: 11-12-2020 take 1 tablet by oralia th twice daily metFORMIN (GLUCOPHAGE) 500 MG tablet TAKE 1 TABLET BY MOUTH TWICE DAILY 0 11/12/2020 Active montelukast 10 mg oral tablet (1 source) Leukotriene Receptor Antagonist take 1 tablet by mouth once daily montelukast (SINGULAIR) 10 mg tablet Take 1 tablet (10 mg total) by mouth nightly. 0 Active idrclxxd-qfjw-SS-calci um &mins (THERAGRAN-M) 9 mg iron-400 mcg tablet (1 source) obelhkbq-tlzy-HH -camelia cium &mins (THERAGRAN-M) 9 mg iron-400 mcg tablet Take 1 tablet by mouth in the morning. 0 Active norethindrone 0.35 mg oral tablet (4 sources) Start: 1 take 1 tablet by mouth once daily NORLYDA 0.35 MG tablet TAKE 1 TABLET BY MOUTH DAILY 0 11/12/2020 Active ondansetron 4 mg oral tablet (1 source) Serotonin-3 Receptor Antagonist Start: 3 ondansetron (ZOFRAN) 4 mg tablet Take 1 tablet (4 mg total) by mouth as needed. 0 01/27/2023 Active pantoprazole 40 mg delayed release oral tablet (13 sources) Proton Pump Inhibitor Start: 4 Pantoprazole Active MG PO November 23, 2023 12:00am Start: 03-09-2022 take 1 tablet by oralia th before mealtime pantoprazole (ProtoNix) 40 MG EC tablet Take 40 mg by mouth in the morning. Take before meals. 03/09/2022 Active Start: 06-04-2019 take 1 tablet by oralia th once daily pantoprazole (PROTONIX) 40 MG tablet Indications: Gastroesophageal reflux disease, esophagitis presence not specified TAKE 1 TABLET BY MOUTH EVERY DAY 30 tablet 5 06/04/2019 Active Pantoprazole Sod ium Active phentermine hydrochloride 37.5 mg oral tablet (17 sources) Sympathomimetic Amine Anorectic Start: 04-27-2023 take 1 tablet by mouth before mealtime phentermine (Adipex-P) 37.5 MG tablet Indications: Encounter for weight management Take 1 tablet (37.5 mg) by mouth in the morning. Take before meals. 90 tablet 06/22/2023 Active Start: 02-04-2021 take 1 tablet by oralia th once daily phentermine (ADIPEX-P) 37.5 MG tablet Take 37.5 mg by mouth daily. 0 02/04/2021 Active predniSONE 20 mg oral tablet (1 source) Start: 04-30-2022 take 1 tablet by mouth every twelve hours predniSONE 20 MG 1 tablet Orally 2 times a day for 5 day(s) Apr, Active psyllium 3400 mg powder for oral suspension (1 source) take 1 dose by mouth in the morning psyllium (METAMUCIL) powder Take 1 packet by mouth in the morning. 0 Active Completed/Discontinued Medications Medication Drug Class(es) Dates Sig (Normalized) Sig (Original) Duloxetine 60 mg capsule,delayed release(DR/EC) (1 source) Start: 4 End: 5 Duloxetine 60 mg capsule,delayed release(DR/EC) Discontinued MG PO November 23, 2023 12:00am August 19, 2024 12:06pm methylPREDNISolone 4 mg oral tablet (2 sources) Corticosteroid Start: 4 End: 5 take 1 tablet by mouth once Methylprednisolone (Medrol ([place])) 4 mg tablets,dose pack Discontinued 0 PO per package directions November 23, 2023 12:00am August 19, 2024 12:04pm PO PER PKG DIR Pantoprazole 40 mg tablet,delayed release (DR/EC) (1 source) Start: End: 5 Pantoprazole 40 mg tablet,delayed release (DR/EC) Discontinued MG PO November 23, 2023 12:00am August 19, 2024 12:06pm technetium sestamibi (CARDIOLITE) injection 30 millicurie (2 sources) Start: End: technetium sestamibi (CARDIOLITE) injection 30 millicurie Start: 02-24-2021 End: 02-24-2021 technetium sestamibi (CARDIO LITE) injection 30 millicurie triamcinolone acetonide 1 mg/ml topical cream (2 sources) Corticosteroid Start: 11-23-2023 End: 08-19-2024 Triamcinolone Acetonide 0.1 % cream Discontinued 1 APPLIC TOPICAL Twice daily November 23, 2023 12:00am August 19, 2024 12:04pm apply a thin layer to the affected areas twice daily for 7 days Problems Active Problems Problem Classification Problem Date Documented Date Episodic/Chronic Abdominal pain (2 sources) Pain in female pelvis; Translations: [Pelvic and perineal pain] 09-11-2024 Episodic Allergic reactions (2 sources) Inflammatory dermatosis; Translations: [Dermatitis, unspecified] 11-23-2023 Episodic Anxiety disorders (20 sources) Mixed anxiety and depressive disorder; Translations: [Other specified anxiety disorders] Onset: 06-19-19 20 06-19-2019 Chronic Asthma (19 sources) Mild intermittent asthma; Translations: [Mild intermittent asthma, uncomplicated] Onset: 06-27-19 21 06-26-2020 Chronic Diseases of mouth; excluding dental (4 sources) Cellulitis and abscess of mouth; Translations: [CELLULITIS AND ABSCESS OF MOUTH] Onset: 07-20-19 Episodic Disorders of lipid metabolism (1 source) Pure hypercholesterolemia, unspecified; Translations: [PURE HYPERCHOLESTEROLEMIA UNSPEC] Onset: 03-29-20 23 Chronic Esophageal disorders (20 sources) Gastroesophageal reflux disease without esophagitis; Translations: [Gastro-esophageal reflux disease without esophagitis] Onset: 03-24-20 17 03-24-2017 Chronic Essential hypertension (20 sources) Essential hypertension; Translations: [Essential (primary) hypertension] Onset: 03-24-20 17 03-24-2017 Chronic Immunizations and screening for infectious disease (1 source) Encounter for screening for human papillomavirus (HPV); Translations: [ENC SCREENING HUMAN PAPILLOMAVIRUS] Onset: 08-13-19 Episodic Malaise and fatigue (17 sources) Fatigue; Translations: [Chronic fatigue, unspecified] Onset: 05-07-19 14 05-07-2013 Chronic Menstrual disorders (4 sources) Excessive and frequent menstruation with irregular cycle; Translations: [EXCESS AND FREQ MEN W/IRREG CYCLE] Onset: 09-18-19 Chronic Nonmalignant breast conditions (2 sources) Mastodynia; Translations: [Mastodynia] 09-11-2024 Episodic Nonspecific chest pain (1 source) Chest pain; Translations: [Chest pain, unspecified] Episodic Nutritional deficiencies (1 source) Vitamin D deficiency; Translations: [Vitamin D deficiency, unspecified] Chronic Other aftercare (1 source) Other group home (current) drug therapy; Translations: [OTH [facility] CURRENT DRUG THERAPY] Onset: 07-22-19 Episodic Other circulatory disease (1 source) Elevated blood pressure; Translations: [Elevated blood pressure] Episodic Other gastrointestinal disorders (20 sources) Irritable bowel syndrome; Translations: [Irritable bowel syndrome without diarrhea] Onset: 10-12-19 12 10-12-2011 Chronic Other infections; including parasitic (1 source) Personal history of other infectious and parasitic diseases; Translations: [History of 2019 novel coronavirus disease (COVID-19)] Episodic Other lower respiratory disease (4 sources) Dyspnea; Translations: [Shortness of breath] Episodic Other lower respiratory disease (3 sources) Dyspnea on exertion; Translations: [Dyspnea, unspecified] Episodic Other nervous system disorders (20 sources) Peripheral nerve disease ; Translations: [Polyneuropathy, unspecified] Onset: 06-19-19 20 06-19-2019 Chronic Other nervous system disorders (1 source) Polyneuropathy, unspecified; Translations: [POLYNEUROPATHY UNSPECIFIED] Onset: 03-29-20 23 Chronic Other non-traumatic joint disorders (1 source) Hip pain; Translations: [Hip pain, bilateral] Episodic Other non-traumatic joint disorders (1 source) Knee pain; Translations: [Chronic pain of left knee] Episodic Other non-traumatic joint disorders (2 sources) Shoulder pain; Translations: [Pain in unspecified shoulder] 11-23-2023 Episodic Other nutritional; endocrine; and metabolic disorders (1 source) Body mass index 40+ - severely obese; Translations: [Morbid (severe) obesity due to excess calories] Chronic Other screening for suspected conditions (not mental disorders or infectious disease) (11 sources) Patient encounter status; Translations: [Encounter for screening for lipoid disorders] Onset: 08-10-19 Episodic Other skin disorders (4 sources) Eruption; Translations: [Rash and other nonspecific skin eruption] 11-23-2023 Episodic Other upper respiratory disease (2 sources) Seasonal allergic rhinitis; Translations: [Other seasonal allergic rhinitis] 11-23-2023 Chronic Other upper respiratory infections (3 sources) Chronic frontal sinusitis; Translations: [Sinusitis chronic, frontal] 11-23-2023 Chronic Other upper respiratory infections (7 sources) Pansinusitis; Translations: [Acute recurrent pansinusitis] Episodic Ovarian cyst (1 source) Unspecified ovarian cyst, left side; Translations: [UNSPECIFIED OVARIAN CYST LEFT SIDE] Onset: 09-21-19 Episodic Residual codes; unclassified (2 sources) Obstructive sleep apnea syndrome; Translations: [Obstructive sleep apnea (adult) (pediatric)] Chronic Residual codes; unclassified (1 source) Family history of ischemic heart disease and other diseases of the circulatory system; Translations: [Family history of abdominal aortic aneurysm (AAA)] Episodic Residual codes; unclassified (1 source) Family history of malignant neoplasm of breast; Translations: [FAMILY HX MALIG NEOPLASM OF BREAST] Onset: 09-23-19 Episodic Residual codes; unclassified (1 source) Family history of malignant neoplasm of trachea, bronchus and lung; Translations: [FAM HX MALIG NEOPLSM TRACH BRON LNG] Onset: 09-23-19 Episodic Residual codes; unclassified (1 source) Family history of other malignant neoplasms of lymphoid, hematopoietic and related tissues; Translations: [FAM HX OTH MAL LAN LYMPH HEMATPOETC] Onset: 09-23-19 Episodic Residual codes; unclassified (1 source) Family history of leukemia; Translations: [FAMILY HISTORY OF LEUKEMIA] Onset: 09-23-19 Episodic Respiratory failure; insufficiency; arrest (adult) (4 sources) Chronic hypoxemic respiratory failure; Translations: [Chronic respiratory failure with hypoxia] Chronic Spondylosis; intervertebral disc disorders; other back problems (1 source) Chronic low back pain; Translations: [Chronic midline low back pain without sciatica] Episodic Past or Other Problems Problem Classification Problem Date Documented Da te Episodic/Chronic Abdominal hernia (1 source) Incisional hernia; Translations: [Incisional hernia without obstruction or gangrene] 06-27-2023 Episodic Diabetes mellitus without complication (3 sources) Prediabetes; Translations: [Prediabetes] Onset: 09-13-2022 08-21-2023 Episodic Malaise and fatigue (5 sources) Fatigue; Translations: [Chronic fatigue] Onset: 05-07-2013 05-07-2013 Episodic Other lower respiratory disease (17 sources) Hypoxia; Translations: [Hypoxemia] Onset: 06-26-2020 06-26-2020 Episodic Results Test Name Value Interpretation Reference Range Facility ALL LDHon 12-04-2024 LDH [Catalytic activity/Vol] 144 U/L 81 - 234 U/L [facility] CLINISYNC [facility] US PELVIS W/ TRANSVAGINALon 11-23-2024 [place] [address] Ultrasound Report Signed Patient: SAMARA SULLIVAN MR#: [id number] : 1980 Acct:[id number] Age/Sex: 44 / F ADM Date: 11/22/24 Loc: MAMMO Attending Dr: Markus Vega D.O. Ordering Physician: Markus Vega D.O. Date of Service: 11/22/24 Procedure(s): US pelvis w/ transvaginal Accession Number(s): [id number] cc: Mars Sow M.D.; Markus Vega D.O. [place] [id number] Patient Name: SAMARA SULLIVAN MRN: [id number] date: 1980 Sex: F Assigned Patient Location: MAMMO Current Patient Location: Accession/Order Number: [id number] Exam Date: 11/23/2024 09:51 Report Date: 11/23/2024 09:56 At the request of: MARKUS VEGA DO Procedure: US pelvis w/ transvaginal Pelvic ultrasound. Reason for exam: Pelvic pain. Comparison: none Technique: Transabdominal imaging of the uterus and ovaries was performed. Transvaginal imaging of the uterus and ovaries was also obtained. Additional spectral Doppler analysis of the ovaries was also obtained. Findings: Uterus has been removed. Right ovary measures 2.7 x 2.4 x 2.6 cm. The left ovary measures 6.0 x 3.8 x 5.9 cm. Right ovary demonstrates no adnexal mass or cyst. Normal arterial and venous Doppler waveforms are noted. The left ovary demonstrates a cluster of follicles with what appears to be a corpus luteum/hemorrhagic cyst noted measuring 3.3 cm in greatest dimension. Normal arterial and venous Doppler waveforms are noted. US/US pelvis w/ transvaginal Impression: Cluster of follicles involving the left ovary with what appears to be a corpus luteum/hemorrhagic cyst noted measuring 3.3 cm in greatest dimension. Repeat ultrasound in 6-12 weeks is suggested to confirm resolution. Impression dictated by: Fredo Parekh Jr., D.O. 11/23/2024 9:56 AM Dictation Location: [place] [address] Electronically authenticated by: [id number] Y Date: 11/23/2024 09:56 Dictated By: Fredo Parekh M.D. Signed By: 11/23/24 0959 DD/ TD/TT: Admissions Director: [facility] Radiology, Radiologist, MD - 11/23/2024 [place] [address] Ultrasound Report Signed Patient: SAMARA SULLIVAN MR#: [id number] : 1980 Acct:[id number] Age/Sex: 44 / F ADM Date: 11/22/24 Loc: MAMMO Attending Dr: Markus Vega D.O. Ordering Physician: Markus Vega D.O. Date of Service: 11/22/24 Procedure(s): US pelvis w/ transvaginal Accession Number(s): [id number] cc: Mars Sow M.D.; Markus Vega D.O. [address] [address] Patient Name: SAMARA SULLIVAN MRN: [id number] date: 1980 Sex: F Assigned Patient Location: MAMMO Current Patient Location: Accession/Order Number: [id number] Exam Date: 11/23/2024 09:51 Report Date: 11/23/2024 09:56 At the request of: MARKUS VEGA DO Procedure: US pelvis w/ transvaginal Pelvic ultrasound. Reason for exam: Pelvic pain. Comparison: none Technique: Transabdominal imaging of the uterus and ovaries was performed. Transvaginal imaging of the uterus and ovaries was also obtained. Additional spectral Doppler analysis of the ovaries was also obtained. Findings: Uterus has been removed. Right ovary measures 2.7 x 2.4 x 2.6 cm. The left ovary measures 6.0 x 3.8 x 5.9 cm. Right ovary demonstrates no adnexal mass or cyst. Normal arterial and venous Doppler waveforms are noted. The left ovary demonstrates a cluster of follicles with what appears to be a corpus luteum/hemorrhagic cyst noted measuring 3.3 cm in greatest dimension. Normal arterial and venous Doppler waveforms are noted. US/US pelvis w/ transvaginal Impression: Cluster of follicles involving the left ovary with what appears to be a corpus luteum/hemorrhagic cyst noted measuring 3.3 cm in greatest dimension. Repeat ultrasound in 6-12 weeks is suggested to confirm resolution. Impression dictated by: Fredo Parekh Jr., D.O. 11/23/2024 9:56 AM Dictation Location: [place] [address] Electronically authenticated by: [id number] Y Date: 11/23/2024 09:56 Dictated By: Fredo Parekh M.D. Signed By: 11/23/2459 DD/ 5 TD/TT: Admissions Director: [facility] Radiology Study observation (narrative) [facility] US PELVIS W/ TRANSVAGINALOrd ered By: Radiologist Radiology on 11-23-2024 [facility] [employer] Work Phone: MM TOMOSYNTHESIS SCREENING B Ion 11-22-2024 [place] [address] Mammography Report Signed Patient: SAMARA SULLIVAN MR#: [id number] : 1980 Acct:[id number] Age/Sex: 44 / F ADM Date: 11/22/24 Loc: MAMMO Attending Dr: Markus Vega D.O. Ordering Physician: Markus Vega D.O. Results: Date of Service: 11/22/24 Follow Up: Procedure(s): MM tomosynthesis screening BI Accession Number(s): [id number] cc: Mars Sow M.D.; Markus Vega D.O. Patient Name: SAMARA SULLIVAN MR#: [id number] : 1980 Exam Date: 11/22/2024 Ordering Doctor: DR MARKUS VEGA . RADIOLOGY REPORT PROCEDURE: MM TOMOSYNTHESIS SCREENING BI COMPARISON: MG MAMM SCREEN 3D LOU CAD, 09/21/2022. MG MAMM RT DIAG FU, 03/11/2020. MG MAMM SCREEN LOU W CAD, 02/12/2020. INDICATIONS: Screening mammogram Calculator Name NCI Breast Cancer Risk Assessment Tool 5 Year Breast Cancer Risk 1.60% Lifetime Breast Cancer Risk 18.80% Personal Breast Cancer No Personal Ovarian Cancer No Treatments None Family Cancers Mother with breast cancer at age 73; Father with leukemia cancer at age 78; Father with lung cancer at age 80; Grandmother-maternal with lymphoma cancer at age 80; Uncle-maternal with lung cancer at age 60. LOCATION: [facility] BREAST COMPOSITION: The breasts are heterogeneously dense, which may obscure small masses. FINDINGS: RIGHT BREAST: No significant suspicious finding. Benign-appearing calcifications are present. LEFT BREAST: No significant suspicious finding. Benign-appearing calcifications are present. DIAGNOSTIC CATEGORY 2--BENIGN FINDING: RECOMMENDATIONS: ROUTINE MAMMOGRAM AND CLINICAL EVALUATION IN 12 MONTHS. PLEASE NOTE: A NORMAL MAMMOGRAM DOES NOT EXCLUDE THE POSSIBILITY OF BREAST CANCER. A CLINICALLY SUSPICIOUS PALPABLE LUMP SHOULD BE BIOPSIED. Dictated by: Ronald Dowell MD on 11/22/2024 at 16:58 Approved by: Ronald Dowell MD on 11/22/2024 at 17:03 Dictated By: Ronald Dowell M.D. Signed By: 11/22/241703 DD/ 02 TD/TT: Admissions Director: [facility] Radiology, Radiologist, - 11/22/2024 [place] [address] Mammography Report Signed Patient: SAMARA SULLIVAN MR#: [id number] : 1980 Acct:[id number] Age/Sex: 44 / F ADM Date: 11/22/24 Loc: MAMMO Attending Dr: Markus Vega D.O. Ordering Physician: Markus Vega D.O. Results: Date of Service: 11/22/24 Follow Up: Procedure(s): MM tomosynthesis screening BI Accession Number(s): [id number] cc: Mars Sow M.D.; Markus Vega D.O. Patient Name: SAMARA SULLIVAN MR#: [id number] : 1980 Exam Date: 11/22/2024 Ordering Doctor: DR MARKUS VEGA . RADIOLOGY REPORT PROCEDURE: MM TOMOSYNTHESIS SCREENING BI COMPARISON: MG MAMM SCREEN 3D LOU CAD, 09/21/2022. MG MAMM RT DIAG FU, 03/11/2020. MG MAMM SCREEN LOU W CAD, 02/12/2020. INDICATIONS: Screening mammogram Calculator Name NCI Breast Cancer Risk Assessment Tool 5 Year Breast Cancer Risk 1.60% Lifetime Breast Cancer Risk 18.80% Personal Breast Cancer No Personal Ovarian Cancer No Treatments None Family Cancers Mother with breast cancer at age 73; Father with leukemia cancer at age 78; Father with lung cancer at age 80; Grandmother-maternal with lymphoma cancer at age 80; Uncle-maternal with lung cancer at age 60. LOCATION: [facility] BREAST COMPOSITION: The breasts are heterogeneously dense, which may obscure small masses. FINDINGS: RIGHT BREAST: No significant suspicious finding. Benign-appearing calcifications are present. LEFT BREAST: No significant suspicious finding. Benign-appearing calcifications are present. DIAGNOSTIC CATEGORY 2--BENIGN FINDING: RECOMMENDATIONS: ROUTINE MAMMOGRAM AND CLINICAL EVALUATION IN 12 MONTHS. PLEASE NOTE: A NORMAL MAMMOGRAM DOES NOT EXCLUDE THE POSSIBILITY OF BREAST CANCER. A CLINICALLY SUSPICIOUS PALPABLE LUMP SHOULD BE BIOPSIED. Dictated by: Ronald Dowell MD on 11/22/2024 at 16:58 Approved by: Ronald Dowell MD on 11/22/2024 at 17:03 Dictated By: Ronald Dowell M.D. Signed By: 11/22/241703 DD/ 02 TD/TT: Admissions Director: [facility] [employer] Radiology Study observation (narrative) [facility] [employer] MM TOMOSYNTHESIS SCREENING B IOrdered By: Radiologist Radiology on 11-22-2024 [facility] [employer] Work Phone: Basic Metabolic Panelon 07-25 Anion gap [Moles/Vol] 10 mmol/L 9 - 17 mmol/L [facility] Calcium [Mass/Vol] 9.1 mg/dL 8.6 - 10. 4 mg/dL [facility] Chloride [Moles/Vol] 98 mmol/L 98 - 10 7 mmol/L [facility] CO2 [Moles/Vol] 24 mmol/L 20 - 31 mmol/L [facility] Creatinine [Mass/Vol] 0.6 mg/dL 0.5 - 0.9 mg/dL [facility] GFR/1.73 sq M.predicted MDRD (S/P/Bld) [Vol rate/Area] - PINF [facility] Comment on above: These results are not intended for use in patients <18 years of age. eGFR results are calculated without a race factor using the 2020 CKD-EPI equation. Careful clinical correlation is recommended, particularly when comparing to results calculated using previous equations. The CKD-EPI equation is less accurate in patients with extremes of muscle mass, extra-renal metabolism of creatine, excessive creatine ingestion, or following therapy that affects renal tubular secretion. Glucose [Mass/Vol] 101 mg/dL High 70 - 99 mg/dL [facility] Interpretation and review of laboratory results Abnormal [facility] Potassium [Moles/Vol] 4.1 mmol/L 3.7 - 5.3 mmol/L [facility] Sodium [Moles/Vol] 132 mmol/L Low 135 - 144 mmol/L [facility] Urea nitrogen [Mass/Vol] 10 mg/dL 6 - 20 mg/dL [facility] Urea nitrogen/Creatinine [Mass ratio] 17 mg/mg 9 - 20 [facility] Basic Metabolic Profon 08-20 Anion gap [Moles/Vol] 10 mmol/L Normal 9-17 [facility] Comment on above: Performed By: #### B MP #### [facility] [address] [place], [place] [id number] Emergency Medicine Physician: Madie Harris MD #### GLYHGB #### [facility] [address] [place], [place] [id number] Emergency Medicine Physician: Alan Trevino MD BUN/CRE Ratio 17 Normal 9-20 [facility] Comment on above: Performed By: #### B MP #### [facility] [address] [place], [place] [address] Emergency Medicine Physician: Madie Harris MD #### GLYHGB #### [facility] [address] [place], [place] [id number] Emergency Medicine Physician: Alan Trevino MD Calcium [Mass/Vol] 9.1 mg/dL Normal 8.6-10.4 [facility] Comment on above: Performed By: #### B MP #### [facility] [address] [place], [place] [id number] Emergency Medicine Physician: Madie Harris MD #### GLYHGB #### [place] [address] [place] [address] Emergency Medicine Physician: Alan Trevino MD Chloride [Moles/Vol] 98 mmol/L Normal 98-107 [facility] Comment on above: Performed By: #### B MP #### [facility] [address] [place], [place] [address] Emergency Medicine Physician: Madie Harris MD #### GLYHGB #### [address] [place] [address] Emergency Medicine Physician: Alan Trevino MD CO2 [Moles/Vol] 24 mmol/L Normal 20-31 [facility] Comment on above: Performed By: #### B MP #### [facility] [address] [place], [place] [address] Emergency Medicine Physician: Madie Harris MD #### GLYHGB #### [place] [address] [place] [address] Emergency Medicine Physician: Alan Trevino MD Creatinine [Mass/Vol] 0.6 mg/dL Normal 0.5-0.9 [facility] Comment on above: Performed By: #### B MP #### [address] [place] [address] Emergency Medicine Physician: Madie Harris MD #### GLYHGB #### [address] [id number] Emergency Medicine Physician: Alan Trevino MD GFR/1.73 sq M.predicted among non-blacks MDRD (S/P/Bld) [Vol rate/Area] mL/min/{1.73_m2} Normal >60 [facility] Comment on above: Result Comment: These results are not intended for use in patients <18 years of age. eGFR results are calculated without a race factor using the 2020 CKD-EPI equation. Careful clinical correlation is recommended, particularly when comparing to results calculated using previous equations. The CKD-EPI equation is less accurate in patients with extremes of muscle mass, extra-renal metabolism of creatine, excessive creatine ingestion, or following therapy that affects renal tubular secretion. Performed By: #### B MP #### [facility] [address] [place] [address] [place] [address] Emergency Medicine Physician: Madie Harris MD #### GLYHGB #### [place] [address] [place], [place] [id number] Emergency Medicine Physician: Alan Trevino MD Glucose [Mass/Vol] 101 mg/dL High 70-99 [facility] Comment on above: Performed By: #### B MP #### [facility] [address] [place], [place] [phone] Emergency Medicine Physician: Madie Harris MD #### GLYHGB #### [place] [address] [place] [address] Emergency Medicine Physician: Alan Trevino MD Potassium [Moles/Vol] 4.1 mmol/L Normal 3.7-5.3 [facility] Comment on above: Performed By: #### B MP #### [facility] [address] [place], [place] [address] Emergency Medicine Physician: Madie Harris MD #### GLYHGB #### [address] [address] Emergency Medicine Physician: Alan Tervino MD Sodium [Moles/Vol] 132 mmol/L Low 135-144 [facility] Comment on above: Performed By: #### B MP #### [facility] [address] [place], [place] [id number] Emergency Medicine Physician: Madie Harris MD #### GLYHGB #### [address] [address] Emergency Medicine Physician: Alan Trevino MD Urea nitrogen [Mass/Vol] 10 mg/dL Normal 6-20 [facility] Comment on above: Performed By: #### B MP #### [facility] [address] [place], [place] [address] Emergency Medicine Physician: Madie Harris MD #### GLYHGB #### [address] [address] Emergency Medicine Physician: Alan Trevino MD Hemoglobin A1Con 08-21-2023 Glucose [Mass/Vol] 120 mg/dL Normal [facility] Comment on above: Result Comment: The ADA and AACC recommend providing the estimated average glucose result to permit better patient understanding of their HBA1c result. Performed By: #### B MP #### [facility] [address] [place] [address] Emergency Medicine Physician: Madie Harris MD #### GLYHGB #### [facility] [address] [place], [place] [id number] Emergency Medicine Physician: Alan Trevino MD HbA1c (Bld) [Mass fraction] 5.8 % Normal 4.0-6.0 [facility] Comment on above: Performed By: #### B MP #### [facility] [address] [place], [place] [address] Emergency Medicine Physician: Madie Harris MD #### GLYHGB #### [facility] [address] [place], [place] [phone] Emergency Medicine Physician: Alan Trevino MD Average glucose Estimated from glycated hemoglobin (Bld) [Mass/Vol] 120 mg/dL [facility] Comment on above: The ADA and AACC rec ommend providing the estimated average glucose result to permit better patient understanding of their HBA1c result. HbA1c (Bld) [Mass fraction] 5.8 % 4.0 - 6.0 % [facility] MG MAMM SCREEN 3D LOU CADon 09-21-2022 MG MAMM SCREEN 3D LOU CAD Patient: SAMARA SULLIVAN Exam Date: 09/21/2022 : 1980 Gender:F Ordering : DR MARKUS VEGA . Admission #: [id number] Family : Order #: [id number] CLICK HERE TO VIEW EXAM RADIOLOGY REPORT [...] lung cancer at age 60. LOCATION: [facility] BREAST COMPOSITION: Heterogeneously dense,which may obscure small [...] PALPABLE LUMP SHOULD BE BIOPSIED. Dictated by: Torie Mohr M.D. on 09/22/2022 at 13:47 Approved by: Torie Mohr M.D. on 09/22/2022 at 13:49 Normal [facility] CBC AUTO DIFFon 09-17-2022 BASO # 0.1 103/ul Normal 0.0-0.1 [facility] Comment on above: Performed By: #### C BC #### [facility] [address] [place] [address] Dr. Jazmyn Jeffery Basophils/100 WBC (Bld) 0.7 % Normal 0.2-2.[address] [facility] Comment on above: Performed By: #### C BC #### [facility] [address] [place] [address] Dr. Jazmyn Jeffery EO # 0.2 103/ul Normal 0.0-0.7 [facility] Comment on above: Performed By: #### C BC #### [facility] [address] [place] [address] Dr. Jazmyn Jeffery Eosinophils/100 WBC (Bld) 1.7 % Normal 0.9-7.0 [facility] Comment on above: Performed By: #### C BC #### [facility] [address] [place] [address] Dr. Jazmyn Jeffery Erythrocyte distribution width (RBC) [Ratio] 13.9 % Normal 11.0-15.0 [facility] Comment on above: Performed By: #### C BC #### [facility] [address] [place] [address] Dr. Jazmyn Jeffery Hematocrit (Bld) [Volume fraction] 36.2 % Normal 36.0-48.0 [facility] Comment on above: Performed By: #### C BC #### [facility] [address] [place] [address] Dr. Jazmyn Jeffery Hemoglobin (Bld) [Mass/Vol] 11.7 g/dL Critically low 12.0-16.0 [facility] Comment on above: Performed By: #### C BC #### [facility] [address] [place] [address] Dr. Jazmyn Jeffery IG # 0.02 10e3/ul Normal 0.00-0.03 [facility] Comment on above: Performed By: #### C BC #### [facility] [address] [place] [address] Dr. Jazmyn Jeffery IG % 0.2 % Normal 0.0-0.5 [facility] Comment on above: Performed By: #### C BC #### [facility] [address] [place] [address] Dr. Jazmyn Jeffery LYMPH # 3.5 103/ul Normal 1.2-3.8 [facility] Comment on above: Performed By: #### C BC #### [facility] [address] [place] [address] Dr. Jazmyn Jeffery Lymphocytes/100 WBC (Bld) 40.3 % Normal 20.5-60.0 [facility] Comment on above: Performed By: #### C BC #### [facility] [address] [place] [address] Dr. Jazmyn Jeffery MANUAL DIFF REQ NO Normal [facility] Comment on above: Performed By: #### C BC #### [facility] [address] [place] [address] Dr. Jazmyn Jeffery MCH (RBC) [Entitic mass] 26.6 pg Critically low 26.7-34.0 [facility] Comment on above: Performed By: #### C BC #### [facility] [address] [place] [address] Dr. Jazmyn Jeffery MCHC (RBC) [Mass/Vol] 32.3 g/dL Normal 29.9-35.2 [facility] Comment on above: Performed By: #### C BC #### [facility] [address] [place] [address] [address] Jazmyn Jeffery MCV (RBC) [Entitic vol] 82.3 fL Normal 81.0-99.[address] [facility] Comment on above: Performed By: #### C BC #### [facility] [address] [place] [address] [address] Jazmyn Jeffery MONO # 0.5 103/ul Normal 0.3-0.8 [facility] Comment on above: Performed By: #### C BC #### [facility] [address] [place] [address] Dr. Jazmyn Jeffery Monocytes/100 WBC (Bld) 6.0 % Normal 1.7-12.[address] [facility] Comment on above: Performed By: #### C BC #### [facility] [address] [place] [address] Dr. Jazmyn Jeffery NEUT # 4.4 103/ul Normal 1.4-6.5 [facility] Comment on above: Performed By: #### C BC #### [facility] [address] [place] [address] Dr. Jazmyn Jeffery Neutrophils/100 WBC (Bld) 51.1 % Normal 43.0-75.0 [facility] Comment on above: Performed By: #### C BC #### [facility] [address] [place] [address] Dr. Jazmyn Jeffery Platelet mean volume (Bld) [Entitic vol] 8.9 fL Critically low 9.5-13.5 [facility] Comment on above: Performed By: #### C BC #### [facility] [address] [place] [address] Dr. Jazmyn Jeffery PLT 301 103/ul Normal 150-450 [facility] Comment on above: Performed By: #### C BC #### [facility] [address] [place] [address] Dr. Jazmyn Jeffery RBC 4.40 106/ul Normal 4.20-5.40 [facility] Comment on above: Performed By: #### C BC #### [facility] [address] [place] [address] Dr. Jazmyn Jeffery WBC 8.6 103/ul Normal 4.0-11.0 [facility] Comment on above: Performed By: #### C BC #### [facility] [address] [place] [address] Dr. Jazmyn Jeffery FREE T4on 09-17-2022 Free T4 [Mass/Vol] 0.77 ng/dL Normal 0.76-1.46 [facility] Comment on above: Performed By: #### F T4 #### [facility] [address] [place] [address] Dr. Jazmyn Jeffery GLYCOHEMOGLOBIN A1Con 2022 ADA RECOMMENDATION SEE BELOW Normal [facility] Comment on above: Result Comment: ADA RECOMMENDED LIMIT 4.0 - 6.0 ADA THERAPEUTIC TARGET < 7.0 ACTION SUGGESTED > 7.0 Performed By: #### A 1C #### [facility] [address] [place] [address] Dr. Jazmyn Jeffery Glucose [Mass/Vol] 137 mg/dL Normal [facility] Comment on above: Performed By: #### A 1C #### [facility] [address] [place] [address] Dr. Jazmyn Jeffery HbA1c (Bld) [Mass fraction] 6.4 % Critically high 4.5-6.2 [facility] Comment on above: Performed By: #### A 1C #### [facility] [address] [place] [address] Dr. Jazmyn Jeffery PREG QUANT HCGon 09-17-2022 HCG QUANT <1 Normal [facility] Comment on above: Performed By: #### P REGQNT, TSH #### [facility] [address] [place] [address] Dr. Jazmyn Jeffery HCG RANGE SEE BELOW Normal [facility] Comment on above: Result Comment: 5-50 0.2-1 WEEK 50-500 1-2 WEEKS 100-5,000 2-3 WEEKS 500-10,000 3-4 WEEKS 1,000-50,000 4-5 WEEKS 10,000-100,000 5-6 WEEKS 15,000-200,000 6-8 WEEKS 10,000-100,000 2-3 MONTHS Performed By: #### P REGQNT, TSH #### [facility] [address] [address] [address] Jazmyn Jeffery PROTIMEon 09-17-2022 INR Coag (PPP) [Relative time] 0.93 {INR} Normal [facility] Comment on above: Performed By: #### P TT, PT #### [facility] [address] [address] [address] Jazmyn Jeffery INR GUIDELINES SEE BELOW Normal [facility] Comment on above: Result Comment: SYLVESTER RED INR: 2.0 - 3.0 CONDITIONS NOT LISTED BELOW 2.5 - 3.5 FOR PROSTHETIC HEART VALVE REPLACEMENT 2.5 - 3.5 RECURRENT THROMBOSIS Performed By: #### P TT, PT #### [facility] [address] [address] [address] Jazmyn Jeffery PT Coag (PPP) [Time] 9.9 s Normal 9.0-11.6 [facility] Comment on above: Performed By: #### P TT, PT #### [facility] [address] [address] [address] Jazmyn Jeffery PTTon 09-17-2022 aPTT Coag (Bld) [Time] 31.0 s Normal 22.3-36.2 [facility] Comment on above: Performed By: #### P TT, PT ####[facility] [id number] [address]Dr. Jazmyn Jeffery TSHon 09-17-2022 TSH 4.120 uIU/mL Critically high 0.358-3.740 [facility] Comment on above: Performed By: #### P REGQNT, TSH #### [facility] [address] [address] [address] Jazmyn Jeffery US PELVIS AND TRANSVAGon US PELVIS AND TRANSVAG EXAMINATION: US PELVIS AND TRANSVAG HISTORY: Excessive [...] authenticated by: MADIE ALY Date: 2022-09-17 17:22 Normal [facility] PAP ACOG PANEL 2: 30 to 65on 08-16-2022 . . Normal [facility] Comment on above: Result Comment: Perf ormed at: WB Performed By: #### [id number] ####[facility] [id number] [address]DrJagjit Jeffery Age Gdln ACOG Testing 30-65 Normal [facility] Comment on above: Performed By: #### [id number] ####[facility] [id number] [address]DrJagjit Jeffery DIAGNOSIS: Comment Normal [facility] Comment on above: Result Comment: NEGA TIVE FOR INTRAEPITHELIAL LESION OR MALIGNANCY. Performed at: WB Performed By: #### [id number] ####[facility] [id number] [address]Dr. Jazmyn Jeffery HPV Aptima Negative Normal Negative [facility] Comment on above: Result Comment: This nucleic acid amplification test detects fourteen high-risk HPV types (16,18,31,33,35,39,45,51,52,56,58,59,66,68) without differentiation. Performed at: =G Performed By: #### [id number] ####[facility] [id number] [address]DrJagjit Jeffery HPV Genotype Reflex Comment Normal [facility] Comment on above: Result Comment: Crit eria not met, HPV Genotype not performed. Performed at: WB Performed By: #### [id number] ####[facility] [id number] [place], [place] [address]DrJagjit Jeffery Methodology: Comment Normal [facility] Comment on above: Result Comment: This liquid based ThinPrep(R) pap test was screened with the use of an image guided system. Performed at: WB Performed By: #### [id number] ####[facility] [id number] [place], [place] [address]DrJagjit Jeffery Note: Comment Normal [facility] Comment on above: Result Comment: The Pap smear is a screening test designed to aid in the detection of premalignant and malignant conditions of the uterine cervix. It is not a diagnostic procedure and should not be used as the sole means of detecting cervical cancer. Both false-positive and false-negative reports do occur. . Performed at: WB Performed By: #### [id number] ####[facility] [id number] [place], [place] [address]DrJagjit Jeffery Performed by: Comment Normal [facility] Comment on above: Result Comment: Yusra Yip, Pantograph Machine Operator (ASCP) Performed at: WB Performed By: #### [id number] ####[facility] [id number] [place], [place] [address]DrJagjit Jeffery Specimen adequacy: Comment Normal [facility] Comment on above: Result Comment: Sati sfactory for evaluation. No endocervical component is identified. Performed at: WB Performed By: #### 4 [id number] ####[facility] [id number] [place], [place] [address]DrJagjit Jeffery GROUP A STREP CULTUREon 06-24 S. pyogenes Ag Ql (Unsp spec) Culture Observations: NEGATIVE FOR GROUP A STREPTOCOCCUS. Normal [facility] Comment on above: Performed By: #### S SCRN, GRASTCX #### [facility] [address] [address] [address] Jazmyn Jeffery STREPT SCREENon 07-19-2022 STREP SCREEN A Negative Normal NEGATIVE [facility] Comment on above: Performed By: #### S SCRN, GRASTCX #### [facility] [address] [place] [address] Dr. Jazmyn Jeffery CBC Auto DifferentialOrdered By: Thien Castillo on 02-04-2021 Absolute Eos # 0.15 [employer] [facility] Work Phone: Absolute Immature Granulocyte 0.04 [employer] Work Phone: Absolute Lymph # 3.05 [employer] [facility] Work Phone: Absolute [place] # 0.46 [employer] [facility] Work Phone: Basophils (Bld) [#/Vol] 0.05 10*3/uL [employer] Work Phone: Basophils/100 WBC (Bld) 1 % 0 - 2 % [facility] Work Phone: Differential Type NOT REPORTED [employer] Work Phone: Eosinophils/100 WBC (Bld) 1 % 1 - 4 % [employer] Work Phone: Hematocrit (Bld) [Volume fraction] 37.8 % 36.3 - 47.1 % [employer] Phone: Hemoglobin.gastrointest inal spec 1 Ql (Stl) 12.2 g/dL 11.9 - 15.1 g/dL [employer] Phone: Immature granulocytes/100 WBC (Bld) 0 % 0 [employer] Work Phone: Lymphocytes/100 WBC (Bld) 29 % 24 - 43 % [employer] Phone: MCH (RBC) [Entitic mass] 28.2 pg 25.2 - 33.5 pg [employer] Work Phone: MCHC (RBC) [Mass/Vol] 32.3 g/dL 28.4 - 34.8 g/dL [employer] Phone: MCV (RBC) [Entitic vol] 87.3 fL 82.6 - 102.9 fL [employer] Work Phone: Monocytes/100 WBC (Bld) 4 % 3 - 12 % [employer] Work Phone: NRBC Automated 0.0 0.0 per 100 WBC [employer] Phone: Platelet distribution width (Bld) [Ratio] 13.7 % 11.8 - 14.4 % [employer] Phone: Platelet Estimate NOT REPORTED [employer] Phone: Platelet mean volume (Bld) [Entitic vol] 9.0 fL 8.1 - 13.5 fL [employer] Phone: Platelets (Bld) [#/Vol] 363 10*3/uL [employer] Phone: RBC (Bld) [#/Vol] 4.33 10*6/uL 3.95 - 5.1 1 m/uL [employer] Work Phone: RBC (Bld) [#/Vol] NOT REPORTED [employer] Phone: Segmented neutrophils/100 WBC (Bld) 65 % 36 - 65 % [employer] Phone: Segs Absolute 6.88 [employer] Work Phone: WBC (Bld) [#/Vol] 10.6 10*3/uL [employer] Work Phone: WBC (Bld) [#/Vol] NOT REPORTED [employer] Phone: [employer] Work Phone: Comprehensive Metabolic Pane lOrdered By: Thien Castillo on 02-04-2021 Albumin [Mass/Vol] 4.7 g/dL 3.5 - 5.2 g/dL [employer] Phone: Albumin/Globulin [Mass ratio] 1.7 {ratio} [employer] Phone: ALP (Bld) [Catalytic activity/Vol] 132 U/L High 35 - 104 U/L [employer] Phone: ALT [Catalytic activity/Vol] 20 U/L 5 - 33 U/L [employer] Phone: Anion gap [Moles/Vol] 11 mmol/L 9 - 17 mmol/L [employer] Phone: AST [Catalytic activity/Vol] 15 U/L <32 [employer] Phone: Bilirubin [Mass/Vol] 0.21 mg/dL Low 0.3 - 1 .2 mg/dL [employer] Phone: Calcium [Mass/Vol] 9.9 mg/dL 8.6 - 10. 4 mg/dL [employer] Phone: Chloride [Moles/Vol] 101 mmol/L 98 - 10 7 mmol/L [employer] Phone: CO2 [Moles/Vol] 24 mmol/L 20 - 31 mmol/L [employer] Phone: Creatinine [Mass/Vol] 0.63 mg/dL 0.50 - 0.90 mg/dL [employer] Phone: Free PSA/Total PSA [Mass fraction] 7.4 g/dL 6.4 - 8.3 g/dL [employer] Phone: GFR >60 >60 mL/min [employer] Phone: GFR Non- >60 >60 mL/min [employer] Phone: Glucose [Mass/Vol] 113 mg/dL High 70 - 99 mg/dL [employer] Phone: Interpretation and review of laboratory results Abnormal [employer] Phone: Potassium [Moles/Vol] 3.9 mmol/L 3.7 - 5.3 mmol/L [employer] Phone: Sodium [Moles/Vol] 136 mmol/L 135 - 144 mmol/L [employer] Phone: Urea nitrogen (BldV) [Mass/Vol] 11 mg/dL 6 - 20 mg/dL [employer] Phone: Urea nitrogen/Creatinine (Bld) [Mass ratio] 17 [employer] Phone: EKG 12 LeadOrdered By: Thien Castillo on 02-04-2021 Atrial Rate 66 BPM [employer] Work Phone: P [place] 48 degrees [employer] Phone: P-R Interval 208 ms [employer] Phone: Q-T Interval 400 ms [employer] Phone: QRS Duration 88 ms [employer] Phone: QTc Calculation (Bazett) 419 ms [employer] Phone: R [place] 29 degrees [employer] Phone: T [place] 11 degrees [employer] Phone: Ventricular Rate 66 [employer] Work Phone: Normal sinus rhythm Normal ECG No previous ECGs available Confirmed by Gricel Fuentes MD ([id number]) on 02/04/2021 6:45:33 PM [employer] Work Phone: Christian, pn Incoming Ekg Results From [employer] - 02/04/2021 6:45 PM EDT Normal sinus rhythm Normal ECG No previous ECGs available Confirmed by Gricel Fuentes MD ([id number]) on 02/04/2021 6:45:33 PM [employer] Work Phone: [employer] Phone: Laboratory - Chemistry and C hemistry - challengeOrdered By: Thien Castillo on 02-04-2021 GFR/1.73 sq M.predicted MDRD (S/P/Bld) [Vol rate/Area] [employer] Phone: Comment on above: Average GFR for 40-4 9 years old: 99 mL/min/1.73sq m Chronic Kidney Disease: <60 mL/min/1.73sq m Kidney failure: <15 mL/min/1.73sq m eGFR calculated using average adult body mass. Additional eGFR calculator available at: http://www.[employer]/multiple_crcl_2012.htm Stage 1: Some kidney damage normal GFR Stage 2: Mild kidney damage GFR 60-89 Stage 3: Moderate kidney damage GFR 30-59 Stage 4: Severe kidney damage GFR 15-29 Stage 5: Severe kidney damage GFR <15 ESRD - chronic treatment by dialysis or transplant Lipid PanelOrdered By: Thien Castillo on 02-04-2021 Cholesterol [Mass/Vol] 173 mg/dL <200 [employer] Phone: Comment on above: Cholesterol Guidelines: <200 Desirable 200-240 Borderline >240 Undesirable Cholesterol in HDL [Mass/Vol] 36 mg/dL Low >40 [employer] Phone: Comment on above: HDL Guidelines: <40 Undesirable 40-59 Borderline >59 Desirable Cholesterol in LDL [Mass/Vol] 107 mg/dL 0 - 130 mg/dL [employer] Phone: Comment on above: LDL Guidelines: <100 Desirable 100-129 Near to/above Desirable 130-159 Borderline >159 Undesirable Direct (measured) LDL and calculated LDL are not interchangeable tests. Cholesterol in VLDL [Mass/Vol] NOT REPORTED 1 - 30 mg/dL [employer] Phone: Cholesterol.total/Ekta sterol in HDL [Mass ratio] 4.8 {ratio} <5 [employer] Phone: Interpretation and review of laboratory results Abnormal [employer] Phone: Triglyceride [Mass/Vol] 150 mg/dL High <150 [employer] Phone: Comment on above: Triglyceride Guidelines: <150 Desirable 150-199 Borderline 200-499 High >499 Very high Based on AHA Guidelines for fasting triglyceride, January 2012. [employer] Phone: MagnesiumOrdered By: Thien avendaño on 02-04-2021 Magnesium [Mass/Vol] 1.9 mg/dL 1.6 - 2 .6 mg/dL [employer] Phone: No Panel InformationOrdered By: Thien Castillo on 02-04-2021 [employer] Phone: TSH with ReflexOrdered By: Aldo Castillo on 02-04-2021 TSH Qn 2.76 m[IU]/L [employer] Phone: [employer] Phone: Vitamin D 25 HydroxyOrdered By: Thien Castillo on 02-04-2021 Vit D, 25-Hydroxy 38.8 ng/mL 30.0 - 100 .0 ng/mL [employer] Phone: Comment on above: Reference Range: Vitamin D status Range Deficiency <20 ng/mL Mild Deficiency 20-30 ng/mL Sufficiency 30-100 ng/mL Toxicity >100 ng/mL [employer] Phone: CT CHEST WO CONTRASTOrdered By: Ian Hernandez on 11-07-2020 EXAMINATION: CT OF THE CHEST WITHOUT CONTRAST 11/07/2020 9:43 am TECHNIQUE: CT of the chest was performed without the administration of intravenous contrast. Multiplanar reformatted images are provided for review. Dose modulation, iterative reconstruction, and/or weight based adjustment of the mA/kV was utilized to reduce the radiation dose to as low as reasonably achievable. COMPARISON: Chest radiograph 09/12/2020 HISTORY: ORDERING SYSTEM PROVIDED HISTORY: Chronic respiratory failure with hypoxia (HCC) TECHNOLOGIST PROVIDED HISTORY: pulmonary infiltrates secondary to COVID Is the patient ?-> no FINDINGS: Mediastinum: The heart is enlarged. Anemia is possible given that the blood pool density of the heart is lower than that of the myocardium. Mild calcific atherosclerosis coronary arteries. Aortic arch appears unremarkable, ascending thoracic aorta 35 mm and descending thoracic aorta 25 mm. Dilated main pulmonary artery measures 35 mm diameter. Posterior mediastinal structures appear unremarkable. Lungs/pleura: Chronic appearing pulmonary sequela typically associated with smoking including chronic bronchiolitis sequela and COPD. No dense consolidation or pleural effusion. No inspissated secretions or endobronchial lesion evident. No discrete pulmonary nodule. No pleural effusion or pneumothorax. Upper Abdomen: Hepatic steatosis. Otherwise unremarkable Soft Tissues/Bones: No acute superficial soft tissue or osseous structure abnormality evident. [employer] Phone: Christian, Mhpn Incoming Radiant Results From [facility] - 11/07/2020 1:33 PM EDT EXAMINATION: CT OF THE CHEST WITHOUT CONTRAST 11/07/2020 9:43 am TECHNIQUE: CT of the chest was performed without the administration of intravenous contrast. Multiplanar reformatted images are provided for review. Dose modulation, iterative reconstruction, and/or weight based adjustment of the mA/kV was utilized to reduce the radiation dose to as low as reasonably achievable. COMPARISON: Chest radiograph 09/12/2020 HISTORY: ORDERING SYSTEM PROVIDED HISTORY: Chronic respiratory failure with hypoxia (HCC) TECHNOLOGIST PROVIDED HISTORY: pulmonary infiltrates secondary to COVID Is the patient ?-> no FINDINGS: Mediastinum: The heart is enlarged. Anemia is possible given that the blood pool density of the heart is lower than that of the myocardium. Mild calcific atherosclerosis coronary arteries. Aortic arch appears unremarkable, ascending thoracic aorta 35 mm and descending thoracic aorta 25 mm. Dilated main pulmonary artery measures 35 mm diameter. Posterior mediastinal structures appear unremarkable. Lungs/pleura: Chronic appearing pulmonary sequela typically associated with smoking including chronic bronchiolitis sequela and COPD. No dense consolidation or pleural effusion. No inspissated secretions or endobronchial lesion evident. No discrete pulmonary nodule. No pleural effusion or pneumothorax. Upper Abdomen: Hepatic steatosis. Otherwise unremarkable Soft Tissues/Bones: No acute superficial soft tissue or osseous structure abnormality evident. IMPRESSION: 1. Pulmonary changes typically seen as sequela of long-term smoking, possibility of long-term sequela from COVID-19 is a consideration as well, or there may be a combination of underlying etiology. Bronchiolitis and sequela typical of COPD. 2. Anemia is possible given that the blood pool density of the heart is slightly lower than that of the myocardium. 3. Cardiomegaly. 4. Pulmonary artery enlargement which can be seen with pulmonary hypertension but is nonspecific. 5. Hepatic steatosis. [facility] Work Phone: [facility] Work Phone: Blood Gas, ArterialOrdered B y: Ian Hernandez on 09-12-2020 Charles Test PASS [facility] Work Phone: Carboxyhemoglobin NOT REPORTED 0.0 - 5.0 % [facility] Work Phone: Comment on above: FIO2 21 [facility] Work Phone: HCO3 (Bld) [Moles/Vol] 27.4 mmol/L High 22 - 26 mmol/L [facility] Work Phone: Interpretation and review of laboratory results Abnormal [facility] Work Phone: Methemoglobin NOT REPORTED 0.0 - 1.9 % [facility] Work Phone: Mode NOT REPORTED [facility] Work Phone: Negative Base Excess, Art NOT REPORTED 0.0 - 2.0 mmol/L [facility] Work Phone: NOTIFICATION NOT REPORTED [facility] Work Phone: NOTIFICATION TIME NOT REPORTED [facility] Work Phone: O2 Device/Flow/% ROOM AIR [facility] Work Phone: Oxygen saturation in Blood 95.2 % 95 - 98 % [facility] Work Phone: Oxyhemoglobin NOT REPORTED 95.0 - 98.0 % [facility] Work Phone: pCO2, Art, Temp Adj NOT REPORTED [facility] Work Phone: pCO2, Arterial 43.9 [facility] Work Phone: Peep/Cpap NOT REPORTED [facility] Work Phone: pH, Art, Temp Adj NOT REPORTED [facility] Work Phone: pH, Arterial 7.413 [employer] Work Phone: pO2, Art, Temp Adj NOT REPORTED [employer] Work Phone: pO2, Arterial 75.3 Low [facility] Work Phone: Positive Base Excess, Art 2.3 mmol/L High 0.0 - 2.0 mmol/L [facility] Work Phone: PSV NOT REPORTED [facility] Work Phone: Pt Temp 37.0 [facility] Work Phone: Pt. Position NOT REPORTED [employer] Work Phone: Respiratory Rate NOT REPORTED [facility] Phone: Sample Site Right Radial Artery [facility] Work Phone: Set Rate NOT REPORTED [facility] Work Phone: Text for Respiratory NOT REPORTED [facility] Work Phone: Total Hb NOT REPORTED 12.0 - 16.0 g/dl [employer] Work Phone: Total Rate NOT REPORTED [facility] Work Phone: VT NOT REPORTED [facility] Work Phone: [facility] Work Phone: XR CHEST (2 VW)Ordered By: Kulwant Hernandez on 09-12-2020 No acute airspace disease identified. [employer] Work Phone: EXAMINATION: TWO XRA Y VIEWS OF THE CHEST 09/12/2020 2:09 pm COMPARISON: None. HISTORY: ORDERING SYSTEM PROVIDED HISTORY: Dyspnea on exertion FINDINGS: The cardiomediastinal silhouette is within normal limits. The lungs it appear appropriately inflated. There is no consolidation, pneumothorax or evidence for edema. No evidence for effusion. No acute osseous abnormality is identified. [employer] Work Phone: Christian, Mh[employer] Incoming Radiant Results From [facility] - 09/12/2020 2:25 PM EDT EXAMINATION: TWO XRAY VIEWS OF THE CHEST 09/12/2020 2:09 pm COMPARISON: None. HISTORY: ORDERING SYSTEM PROVIDED HISTORY: Dyspnea on exertion FINDINGS: The cardiomediastinal silhouette is within normal limits. The lungs it appear appropriately inflated. There is no consolidation, pneumothorax or evidence for edema. No evidence for effusion. No acute osseous abnormality is identified. IMPRESSION: No acute airspace disease identified. [employer] Work Phone: [employer] Work Phone: 6 Minute Walk TestOrdered By : Mars Sow on 08-26-2020 Distance Walked [facility] Work Phone: SpO2 [employer] Work Phone: 6 MINUTE WALK TEST Name: Samara Medrano [place] : 1980 Diagnisis: Shortness of Breath (Prior history COVID pneumonia 05/15) Home Oxygen? YES Continuous: Liter Flow @ Rest: 2 Exercise: 2 HS: 2 Demand: Liter Flow @ Rest: Exercise: 6 MINUTE WALK DATA Modality HR RR BP SPO2 O2 O2 Dyspnea Modality Delivery Rest - 2 100 16 143/77 97 RA 3 Walk - 1 117 90 RA RA 5 Walk - 2 121 88 RA RA 6 Walk - 3 125 88 RA RA 6 Walk - 4 119 92 NC 2 4 Walk - 5 126 92 NC 2 6 Walk - 6 125 92 NC 2 6 Rest - 2 103 24 157/88 96 NC 2 4 *Nasal Cannula (NC) Oximizer (OX) Demand (D) Continuous(C) KAYKAY DYSPNEA SCALE: 0=Nothing at all 1=Very, very slight 2=Slight 3=Moderate 4=Somewhat severe 5=Severe 7=Very severe 10=Very, very severe EXERCISE SUMMARY: Distance Walked (feet): 750 Walking Pace (steps/minute): Moderate Oxygen: RA Lowest SpO2 during walk: 88 % Did patient need to stop or pause during walk? No COMMENTS: Patient walked at moderate pace for the first 3 mins on room air with SpO2 88%. Placed patient on 2lpm NC and continued walking for 3 more mins with SpO2 increasing to 92% while walking and 96% at rest. Patient tolerated walking well x 750ft. [facility] Work Phone: CBC with Diffon 08-26-2020 Abs. Basophil 0.00 k/uL Normal 0.0-0.2 [facility] Comment on above: Performed By: #### T SHX, CDP #### [facility] [address], [place] [id number] Emergency Medicine Physician: Madie Harris MD Abs.Neutrophil (Seg) 6.70 k/uL Normal 2.5-7.0 [facility] Comment on above: Performed By: #### T SHX, CDP #### [facility] [address], [place] [id number] Emergency Medicine Physician: Madie Harris MD Auto Diff Performed YES Normal [facility] Comment on above: Performed By: #### T SHX, CDP #### [facility] [address], [place] [id number] Emergency Medicine Physician: Madie Harris MD Basophils/100 WBC (Bld) 0 % Normal 0-2 [facility] Comment on above: Performed By: #### T SHX, CDP #### [facility] [address], [place] [id number] Emergency Medicine Physician: Madie Harris MD Eosinophils (Bld) [#/Vol] 0.20 10*3/uL Normal 0.0-0.4 [facility] Comment on above: Performed By: #### T SHX, CDP #### [facility] [address], [place] [id number] Emergency Medicine Physician: Madie Harris MD Eosinophils/100 WBC (Bld) 2 % Normal 0-5 [facility] Comment on above: Performed By: #### T SHX, CDP #### [facility] [address], [place] [id number] Emergency Medicine Physician: Madie Harris MD Erythrocyte distribution width (RBC) [Ratio] 15.2 % Normal 12.1-15.2 [facility] Comment on above: Performed By: #### T GARRETTX, CDP #### [facility] [address] [place] [address] Emergency Medicine Physician: Madie Harris MD Hematocrit (Bld) [Volume fraction] 38.5 % Normal 36-46 [facility] Comment on above: Performed By: #### T GARRETTX, CDP #### [facility] [address] [place] [address] Emergency Medicine Physician: Madie Harris MD Hemoglobin (Bld) [Mass/Vol] 12.7 g/dL Normal 12.0-16.0 [facility] Comment on above: Performed By: #### T KERWIN, CDP #### [facility] [address] [place] [address] Emergency Medicine Physician: Madie Harris MD Lymphocytes (Bld) [#/Vol] 2.60 10*3/uL Normal 1.0-4.8 [facility] Comment on above: Performed By: #### T KERWIN, CDP #### [facility] [address] [place] [address] Emergency Medicine Physician: Madie Harris MD Lymphocytes/100 WBC (Bld) 26 % Normal 15-40 [facility] Comment on above: Performed By: #### T KERWIN, CDP #### [facility] [address] [place] [address] Emergency Medicine Physician: Madie Harris MD MCH (RBC) [Entitic mass] 27.3 pg Normal 26-34 [facility] Comment on above: Performed By: #### T GARRETTX, CDP #### [facility] [address] [place] [address] Emergency Medicine Physician: Madie Harris MD MCHC (RBC) [Mass/Vol] 33.1 g/dL Normal 31-37 [facility] Comment on above: Performed By: #### T SHX, CDP #### [facility] [address], [place] [id number] Emergency Medicine Physician: Madie Harris MD MCV (RBC) [Entitic vol] 82.4 fL Normal 80-100 [facility] Comment on above: Performed By: #### T SHX, CDP #### [facility] [address] [place] [address] Emergency Medicine Physician: Madie Harris MD Monocytes (Bld) [#/Vol] 0.40 10*3/uL Normal 0.0-1.0 [facility] Comment on above: Performed By: #### T SHX, CDP #### [facility] [address] [place] [address] Emergency Medicine Physician: Madie Harrsi MD Monocytes/100 WBC (Bld) 4 % Normal 4-8 [facility] Comment on above: Performed By: #### T SHX, CDP #### [facility] [address] [place] [address] Emergency Medicine Physician: Madie Harris MD Neutrophil (Seg) 68 % Normal 47-75 [facility] Comment on above: Performed By: #### T SHX, CDP #### [facility] [address] [place] [address] Emergency Medicine Physician: Madie Harris MD Platelets (Bld) [#/Vol] 348 10*3/uL Normal 140-450 [facility] Comment on above: Performed By: #### T SHX, CDP #### [facility] [address] [place] [address] Emergency Medicine Physician: Madie Harris MD RBC (Bld) [#/Vol] 4.67 10*6/uL Normal 4.0-5.2 [facility] Comment on above: Performed By: #### T SHX, CDP #### [facility] [address], [place] [id number] Emergency Medicine Physician: Madie Harris MD WBC (Bld) [#/Vol] 9.9 10*3/uL Normal 3.5-11.0 [facility] Comment on above: Performed By: #### T GARRETTX, CDP #### [facility] [address], [place] [id number] Emergency Medicine Physician: Madie Harris MD Abs.Imm.Granulocyte NOT REPORTED Normal 0.00-0.30 [facility] Comment on above: Performed By: #### T GARRETTX, CDP #### [facility] [address] [place] [address] Emergency Medicine Physician: Madie Harris MD Immature Granulocyte NOT REPORTED Normal 0 [facility] Comment on above: Performed By: #### T GARRETTX, CDP #### [facility] [address] [place] [address] Emergency Medicine Physician: Madie Harris MD MPV NOT REPORTED Normal 6.0-12.0 [facility] Comment on above: Performed By: #### T GARRETTX, CDP #### [facility] [address], [place] [id number] Emergency Medicine Physician: Madie Harris MD NRBC Automated NOT REPORTED Normal [facility] Comment on above: Performed By: #### T GARRETTX, CDP #### [facility] [address] [place] [address] Emergency Medicine Physician: Madie Harris MD Platelet Estimate NOT REPORTED Normal [facility] Comment on above: Performed By: #### T GARRETTX, CDP #### [facility] [address] [place] [address] Emergency Medicine Physician: Madie Harris MD RBC morphology finding Nom (Bld) NOT REPORTED Normal [facility] Comment on above: Performed By: #### T GARRETTX, CDP #### [facility] [address] [place], [place] [id number] Emergency Medicine Physician: Madie Harris MD WBC Morphology NOT REPORTED Normal [facility] Comment on above: Performed By: #### T SHX, CDP #### [facility] [address] [place] [address] Emergency Medicine Physician: Madie Harris MD TSH w/reflex to FT4on 2020 TSH Qn 3.33 m[IU]/L Normal 0.30-5.00 [facility] Comment on above: Performed By: #### T SHX, CDP #### [facility] [address] [place] [address] Emergency Medicine Physician: Madie Harris MD Coding Summary.on 07-26-2020 Coding Summary. 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: Commercial Insurance ADMIT DX: REASON FOR VISIT DX: J45.909 Unspecified asthma, uncomplicated J98.11 Atelectasis FINAL DX: PRINCIPAL: J45.909 Unspecified asthma, uncomplicated SECONDARY: J98.11 Atelectasis K21.9 Gastro-esophageal reflux disease without esophagitis F41.8 Other specified anxiety disorders I10 Essential (primary) hypertension E66.01 Morbid (severe) obesity due to excess calories Z68.43 Body mass index [BMI] 50.0-59.9, adult Z79.51 half-way (current) use of inhaled steroids Z79.899 Other post acute care nurse practitioner (current) drug therapy Z82.3 Family history of stroke Z86.19 Personal history of other infectious and parasitic diseases Z87.891 Personal history of nicotine dependence Z99.81 Dependence on supplemental oxygen PYMT PROC APC STAT DESCRIPTION DOCTOR NAME DATE NOTE: The code number assigned matches the documented diagnosis and / or procedure in the patient's chart. However, the narrative phrase printed from the coding software may appear abbreviated, or result in slightly different terminology. Coded By: Domitila Cheatham CphT Date Saved: 07/25/2020 10:32 pm Normal [facility] Consent for Treatmenton 06-24 Consent for Treatment [id number] .00CD:127 Normal [facility] Heart and Vascular Office/Cl inic Noteon 07-14-2020 Heart and Vascular Office/Clinic Note Chief Complaint F/U PFT, CXR wants off oxygen post covid PNA 2L O2 CONT in office @ rest 99% History of Present Illness She is doing better overall and breathing is gradually improving back to baseline. She had pulmonary function test with only mild reduction in DLCO, follow-up chest x-ray with significant improvement in her pulmonary infiltrates from Covid pneumonia and mild residual atelectasis. Walk test showed oxygen desaturation to 90% after walking 1000 feet 80% predicted. She is still using oxygen at this point since her hospital discharge. She has been using albuterol as needed for asthma, she has Symbicort but she gets thrush even with mouth rinsing and has not been using it Review of Systems PHQ Score Initial Depression Screen Score: 0 12 point system review was done and negative except what mentioned in HPI Physical Exam Vitals & Measurements HR: 89(Peripheral) RR: 18 BP: 137/85 SpO2: 99% HT: 160.0 cm HT: 160 cm WT: 140.0 kg WT: 140 kg BMI: 54.69 General: alert, no acute distress Skin: warm, dry Head: no trauma, normocephalic Neck: Trachea midline, no adenopathy, no tenderness Eye: normal conjunctiva, sclera clear ENMT: TM's clear, oral mucosa moist, no pharyngeal erythema or exudate Cardiovascular: regular rate and rhythm, normal peripheral perfusion Respiratory: Lungs CTA, respirations non labored Chest wall: no deformity. Gastrointestinal: soft, non distended, no tenderness, no guarding. Extremities: no deformity, no trauma Neurological: oriented LOC appropriate for age, CN II-XII intact, motor strength equal & normal bilaterally speech normal Psychiatric: cooperative, Assessment/Plan 1. Asthma (J45.909: Unspecified asthma, uncomplicated) Acute respiratory failure from Covid pneumonia is resolving and has borderline oxygen desaturation with activities which should continue to improve. I discussed with the patient to use oxygen only as needed at this point and eventually okay to discontinue oxygen. Continue albuterol as needed. She was tested for sleep apnea twice in the past most recently couple years ago and was negative. 2. Atelectasis (J98.11: Atelectasis) Follow-up No qualifying data available Problem List/Past Medical History Ongoing Anxiety Asthma Chronic GERD Depression with anxiety Headache Hypertension Morbid obesity due to excess calories Morbid obesity with body mass index of 50 or higher Historical No qualifying data Procedure/Surgical History Endometrial ablation, None. Medications albuterol 0.083% Inh Darshana 3 mL, 2.5 mg= 3 mL, Inhalation albuterol CFC free 90 mcg/inh Inh Aer w/Adapt 8 gm (Ventolin), 1 puff(s), Inhalation, QID, PRN amLODIPine 10 mg Tab, Oral, Daily atenolol 25 mg Tab, Oral, Daily budesonide 90 mcg/inh inhalation powder, 2 puff(s), Inhalation, q4hr busPIRone, 15 mg, Oral, TID cyclobenzaprine, 10 mg, Oral, Daily, Still taking, not as prescribed: per patient takes as needed JRuby duloxetine 60 mg Cap-DR, 1 cap(s), Oral, Daily gabapentin 400 mg Cap, 400 mg= 1 cap(s), Oral, TID Mucinex 600 mg Tab-ER, 1200 mg= 2 tab(s), Oral, BID, PRN Pulse Oximeter, 0 Symbicort 160/4.5 inhalation aerosol with adapter, 2 puff(s), Inhalation, BID Vitamin C, 1tablet, Oral, Daily, Self Directed Xopenex CFC free 45 mcg/inh inhalation aerosol with adapter, 2 puff(s), Inhalation, q6hr, PRN Allergies lisinopril (Swelling of throat) Dust (Allergy test positive) Social History Alcohol Current, Wine, 1-2 times per year, 04/19/2019 Substance Abuse - Denies Substance Abuse, 04/19/2019 Tobacco Former smoker, quit more than 30 days ago Tobacco Use:. Started age 15.0 Years. Stopped age 34 Years., 07/14/2020 Former smoker, quit more than 30 days ago Tobacco Use:., 06/02/2020 Former smoker, quit more than 30 days ago, Quit smoking in 2013. Smoked 1 pack per day for 20 years Tobacco Use:. Never Smokeless Tobacco Use:., 04/22/2020 Former smoker, quit more than 30 days ago Tobacco Use:., 09/29/2019 Family History Acute myocardial infarction: Father and Brother. Anxiety: Negative: Sister. Drug dependency: Brother. [facility] Comment on above: Result Comment: Elec tronically Signed By: Abner Kothari MD\.br\Date and Time Signed: 07/14/20 16:53 EDT Reminderson 07-14-2020 Reminders - From: Lani Garcia To: HV - Administrative; Sent: 07/14/2020 16:21:43 EDT Show up: 12/14/2020 16:21:00 EDT Subject: 6 month f/u Due Date/Time: 01/14/2021 16:21:00 EDT Reminder/Recall 6 month f/u 2020 w/Dr. Kothari [facility] Pulmonary Function Studieson 07-01-2020 Pulmonary Function Studies 6 MINUTE WALK TEST 06/18/2020 REFERRING PHYSICIAN: Abner Kothari M.D. At baseline heart rate was 85, respiratory rate 18, blood pressure 123/89. Dyspnea scale 0.5, fatigue scale 0.5. Oxygen saturation 97% on room air. The patient was able to walk 1,075 feet which is 81% predicted and at end of walking heart rate was 114, respiratory rate 22, blood pressure 149/93, dyspnea scale 4, fatigue scale 2, oxygen saturation 90% on room air. IMPRESSION: The patient had oxygen desaturation with walking but does not qualify for supplemental oxygen. The patient was able to walk 1,075 feet which is 81% predicted. READ BY: Evelyn Ware Dictated: 06/24/2020 #[id number] Typed: 06/26/2020 #[id number] cc: Abner Kothari M.D. [facility] Comment on above: Result Comment: Elec tronically Signed By: Abner Kothari MD.br\Date and Time Signed: 07/01/20 03:01 EST Pulmonary Function Studies PULMONARY FUNCTION TESTS: 06/18/2020 REFERRING PHYSICIAN: Abner Kothari M.D. REASON FOR TESTING: This is a 40-year-old female former smoker, one pack a day for 19 years. 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 Spirometry results were repeatable and ATS criteria were met. Spirometry shows normal FEV1 at 87% predicted normal forced vital capacity at 86% predicted and normal FEV1/forced vital capacity ratio at 84%. Lung volume testing shows normal total lung capacity at 89% predicted, normal residual volume at 87% predicted. RV/total lung capacity ratio is normal at 32%. The lung diffusion capacity is mildly reduced and corrects to alveolar volume to 88% predicted. IMPRESSION: Spirometry and lung volume testings are normal. The lung diffusion capacity is mildly reduced. Clinical and radiographic correlation is recommended. READ BY: Abner Kothari M.D. lkr Dictated: 06/24/2020 #[id number] Typed: 06/26/2020 #[id number] cc: Abner Kothari M.D. [facility] Comment on above: Result Comment: Elec tronically Signed By: Taye WALTON, Abner X\.br\Date and Time Signed: 07/01/20 03:01 EST Coding Summary.on 06-30-2020 Coding Summary. CODING DATE: 06/30/2020 FINAL [facility] STATUS: Home (Routine DC) PAYOR: Commercial Insurance ADMIT DX: REASON FOR VISIT DX: U07.1 COVID-19 FINAL DX: PRINCIPAL: J96.00 Acute respiratory failure, unspecified whether with hypoxia or hypercapnia SECONDARY: U07.1 COVID-19 J12.82 Pneumonia due to coronavirus disease 2018 J45.909 Unspecified asthma, uncomplicated I10 Essential (primary) hypertension E66.01 Morbid (severe) obesity due to excess calories F32.9 Major depressive disorder, single episode, unspecified F41.9 Anxiety disorder, unspecified K21.9 Gastro-esophageal reflux disease without esophagitis Z68.43 Body mass index [BMI] 50.0-59.9, adult Z87.891 Personal history of nicotine dependence Z99.81 Dependence on supplemental oxygen PYMT PROC APC STAT DESCRIPTION DOCTOR NAME DATE NOTE: The code number assigned matches the documented diagnosis and / or procedure in the patient's chart. However, the narrative phrase printed from the coding software may appear abbreviated, or result in slightly different terminology. Coded By: Criss Umana Date Saved: 06/30/2020 11:32 am Normal [facility] Coding Summary. CODING DATE: 06/13/2020 FINAL [facility] STATUS: Home (Routine DC) PAYOR: Commercial Insurance ADMIT DX: REASON FOR VISIT DX: U07.1 COVID-19 FINAL DX: PRINCIPAL: U07.1 COVID-19 SECONDARY: J12.82 Pneumonia due to coronavirus disease 2019 J45.909 Unspecified asthma, uncomplicated I10 Essential (primary) hypertension E66.01 Morbid (severe) obesity due to excess calories F32.9 Major depressive disorder, single episode, unspecified F41.9 Anxiety disorder, unspecified K21.9 Gastro-esophageal reflux disease without esophagitis Z68.43 Body mass index [BMI] 50.0-59.9, adult Z87.891 Personal history of nicotine dependence Z99.81 Dependence on supplemental oxygen PYMT PROC APC STAT DESCRIPTION DOCTOR NAME DATE NOTE: The code number assigned matches the documented diagnosis and / or procedure in the patient's chart. However, the narrative phrase printed from the coding software may appear abbreviated, or result in slightly different terminology. Revised Coded By: Criss Umana Revised Date Saved: 06/13/2020 09:52 am [facility] Coding Summary.on 06-19-2020 Coding Summary. CODING DATE: 06/19/2020 [facility] STATUS: Home (Routine DC) PAYOR: Commercial Insurance APC DESCRIPTION 5521 Level 1 Imaging without Contrast ADMIT DX: REASON FOR VISIT DX: J96.00 Acute respiratory failure, unspecified whether with hypoxia or hypercapnia J12.82 Pneumonia due to coronavirus disease 2019 FINAL DX: PRINCIPAL: J96.00 Acute respiratory failure, unspecified whether with hypoxia or hypercapnia SECONDARY: J12.82 Pneumonia due to coronavirus disease 2019 Z86.19 Personal history of other infectious and parasitic diseases J45.909 Unspecified asthma, uncomplicated R91.8 Other nonspecific abnormal finding of lung field PYMT PROC APC STAT DESCRIPTION DOCTOR NAME DATE NOTE: The code number assigned matches the documented diagnosis and / or procedure in the patient's chart. However, the narrative phrase printed from the coding software may appear abbreviated, or result in slightly different terminology. Coded By: Domitila Cheatham CphT Date Saved: 06/19/2020 01:52 pm [facility] Consent for Treatmenton 05-27 Consent for Treatment [id number] .00CD:127 Normal [facility] Pulmonary Function Testson 0 06-18-2020 Pulmonary Function Tests [id number] .00CD:127 Normal [facility] Respiratory Therapy Noteson 06-18-2020 Respiratory Therapy Notes [id number] .00CD:127 Normal [facility] XR Chest 2 Viewson XR Chest 2 Views Exam Date/Time: 06/18/2020 11:13 EST Reason for Exam: Acute respiratory failure, unspecified whether with hypoxia or hypercapnia;Pneumonia Report IMPRESSION: ALMOST COMPLETE CLEARING OF BILATERAL PNEUMONIC INFILTRATES FROM PREVIOUS EXAMINATION, EXCEPT FOR QUESTIONABLE MINIMAL RESIDUAL INFILTRATES IN THE RIGHT UPPER AND LOWER LUNG BLUE. CLINICAL INFORMATION: Pneumonia, Acute respiratory failure, unspecified whether with hypoxia or hypercapnia COMPARISON: 05/06/2020. FINDINGS: Two views of the chest were obtained. Heart and mediastinum appear normal. There is almost complete clearing of the extensive bilateral pneumonic infiltrates, except for questionable minimal residual infiltrates in the right lower lung field. There is no pleural effusion. There is questionable reticular infiltrates in the inferior portion of the right upper lobe. Visualized bony thorax and remainder of the chest appears unremarkable. FINAL REPORT Dictated: 06/18/2020 11:41 am Shamar Goldberg M.D. Signed (Electronic Signature): 06/18/2020 11:41 am Signed by: Shamar Goldberg M.D. Transcribed by: MAGGY Technologist: CRISTA [facility] Lab Reportson 06-11-2020 Lab Reports [id number]# 1.00CD:127 [facility] Transfer Documentson 021 Transfer Documents [id number]# 1.00CD:127 [facility] Orders Officeon 06-03-2020 Orders Office [id number]# 1.00CD:127 Normal [facility] Consent for Treatmenton Consent for Treatment [id number] .00CD:127 Normal [facility] Heart and Vascular Office/Cl inic Noteon 06-02-2020 Heart and Vascular Office/Clinic Note Chief Complaint Pneumonia due to Covid 2L O2 @ rest today in office 98% Feels like she is getting better History of Present Illness This is 40-year-old female with past medical history significant for asthma, chronic sinusitis, obesity. She was hospitalized with acute respiratory failure due to Covid pneumonia she was on high flow oxygen and gradually improved with steroid, remdesivir. She was discharged home on oxygen 3 weeks ago. She finished prednisone taper, she was prescribed Pulmicort which caused her to have thrush despite mouth rinsing and she stopped taking it. She is using albuterol as needed. Overall her symptoms are better still with intermittent dyspnea on exertion and intermittent desaturation with exertion. She was tested for sleep apnea twice over last few years and were negative for sleep apnea but does have primary snoring. She is still using 2 L/min oxygen continuously Review of Systems PHQ Score Initial Depression Screen Score: 0 12 point system review was done and negative except what mentioned in HPI Physical Exam Vitals & Measurements HR: 102(Peripheral) RR: 18 BP: 155/88 SpO2: 98% HT: 159 cm HT: 159.0 cm WT: 137.5 kg WT: 137.5 kg BMI: 54.39 General: alert, no acute distress Skin: warm, dry Head: no trauma, normocephalic Neck: Trachea midline, no adenopathy, no tenderness Eye: normal conjunctiva, sclera clear ENMT: TM's clear, oral mucosa moist, no pharyngeal erythema or exudate Cardiovascular: regular rate and rhythm, normal peripheral perfusion Respiratory: Lungs CTA, respirations non labored Chest wall: no deformity. Gastrointestinal: soft, non distended, no tenderness, no guarding. Extremities: no deformity, no trauma Neurological: oriented LOC appropriate for age, CN II-XII intact, motor strength equal & normal bilaterally speech normal Psychiatric: cooperative, Assessment/Plan 1. Acute respiratory failure (J96.00: Acute respiratory failure, unspecified whether with hypoxia or hypercapnia) Acute respiratory failure due to Covid pneumonia which is gradually improving. Will obtain chest x-ray to reevaluate and pulmonary function test with walk test in 2 weeks. Ordered: Pulmonary Function Testing Pulmonary Function Testing XR Chest 2 Views 2. Pneumonia due to COVID-19 virus (U07.1: COVID-19) Ordered: Pulmonary Function Testing Pulmonary Function Testing XR Chest 2 Views 3. Asthma (J45.909: Unspecified asthma, uncomplicated) Continue albuterol as needed she needs nebulizer device. Will determine need for maintenance inhaler depending on her lung function test. She did not tolerate inhaled steroid and caused thrush but she was on oral prednisone same time. Ordered: Pulmonary Function Testing Pulmonary Function Testing XR Chest 2 Views Follow-up With When Contact Information Taye WALTON, [address] [address] [phone] Additional Instructions: 4 weeks Problem List/Past Medical History Ongoing Anxiety Asthma Chronic GERD Depression with anxiety Headache Hypertension Morbid obesity due to excess calories Morbid obesity with body mass index of 50 or higher Historical No qualifying data Procedure/Surgical History Endometrial ablation, None. Medications albuterol 0.083% Inh Darshana 3 mL, 2.5 mg= 3 mL, Inhalation albuterol CFC free 90 mcg/inh Inh Aer w/Adapt 8 gm (Ventolin), 1 puff(s), Inhalation, QID, PRN amLODIPine 10 mg Tab, Oral, Daily atenolol 25 mg Tab, Oral, Daily budesonide 90 mcg/inh inhalation powder, 2 puff(s), Inhalation, q4hr budesonide 90 mcg/inh inhalation powder, 2 puff(s), Inhalation, q4hr busPIRone, 15 mg, Oral, TID cyclobenzaprine, 10 mg, Oral, Daily, Still taking, not as prescribed: per patient takes as needed JRuby duloxetine 60 mg Cap-DR, 1 cap(s), Oral, Daily gabapentin 400 mg Cap, 400 mg= 1 cap(s), Oral, TID Mucinex 600 mg Tab-ER, 1200 mg= 2 tab(s), Oral, BID, PRN Pulse Oximeter, 0 Vitamin C, 1tablet, Oral, Daily, Self Directed Allergies lisinopril (Swelling of throat) Dust (Allergy test positive) Social History Alcohol Current, Wine, 1-2 times per year, 04/19/2019 Substance Abuse - Denies Substance Abuse, 04/19/2019 Tobacco Former smoker, quit more than 30 days ago Tobacco Use:., 06/02/2020 Former smoker, quit more than 30 days ago, Quit smoking in 2013. Smoked 1 pack per day for 20 years Tobacco Use:. Never Smokeless Tobacco Use:., 04/22/2020 Former smoker, quit more than 30 days ago Tobacco Use:., 09/29/2019 Family History Acute myocardial infarction: Father and Brother. Anxiety: Negative: Sister. Drug dependency: Brother. Normal [facility] Comment on above: Result Comment: Elec tronically Signed By: Taye WALTON, Abner Philip\.br\Date and Time Signed: 06/02/20 14:00 EST Progress Note-Physicianon Progress Note-Physician Objective Vitals & Measurements T: 36.7 ?C (Oral) TMIN: 36.7 ?C (Oral) TMAX: 36.8 ?C (Oral) HR: 55(Monitored) RR: 6 BP: 144/68 SpO2: 97% Intake & Output This visit (24 hour periods starting at 07:00 EST) 05/05/20 * 05/04/20 05/03/20 Total Summary Intake mL -- 1,341.5 1,161.5 Output mL -- 3,800 2,625 Fluid Balance -- -2,458.5 -1,463.5 Intake (2) Oral Intake mL -- 1,340 1,160 dexamethasone mL -- 1.5 1.5 Total -- 1,341.5 1,161.5 Output (1) Urine Catheter mL -- 3,800 2,625 Total -- 3,800 2,625 Counts (0) * This column has not completed the indicated time period. Lab Results D-Dimer: 4676 ng/mL Critical (05/05/20 06:25:00) Alk Phos: 92 Int._Unit/L (05/05/20 06:25:00) ALT: 12 Int._Unit/L (05/05/20 06:25:00) AST: 14 Int._Unit/L (05/05/20 06:25:00) Total Protein: 7 gm/dL (05/05/20 06:25:00) Albumin Lvl: 3.1 gm/dL Low (05/05/20 06:25:00) Globulin: 3.9 gm/dL (05/05/20 06:25:00) A/G Ratio: 0.8 Low (05/05/20 06:25:00) Bili Total: 0.3 mg/dL (05/05/20 06:25:00) Bili Direct: <0.1 (05/05/20 06:25:00) Bili Indirect: Unable to Calculate Abnormal (05/05/20 06:25:00) CRP: 4.7 mg/dL High (05/05/20 06:25:00) LDH: 222 Int._Unit/L High (05/05/20 06:25:00) Glucose Cap: 92 mg/dL (05/05/20 07:59:00) POC Device SN: [id number] (05/05/20 07:59:00) POC User ID: [id number] (05/05/20 07:59:00) POC Username: KERI SOLER (05/05/20 07:59:00) Assessment/Plan 1. Acute respiratory failure with hypoxia (J96.01: Acute respiratory failure with hypoxia) 2. Allergic asthma (J45.909: Unspecified asthma, uncomplicated) 3. Pneumonia due to COVID-19 virus (U07.1: COVID-19) 4. Hyponatremia (E87.1: Hypo-osmolality and hyponatremia) 5. Hypertension (I10: Essential (primary) hypertension) 6. Chronic GERD (K21.9: Gastro-esophageal reflux disease without esophagitis) 7. Depression with anxiety (F41.8: Other specified anxiety disorders) 8. Morbid obesity due to excess calories (E66.01: Morbid (severe) obesity due to excess calories) 9. No contraindication to deep vein thrombosis (DVT) prophylaxis (Z78.9: Other specified health status) Problem List/Past Medical History Ongoing Anxiety Asthma Chronic GERD Depression with anxiety Headache Hypertension Morbid obesity due to excess calories Morbid obesity with body mass index of 50 or higher Historical No qualifying data Medications Inpatient acetaminophen 325 mg Tab, 650 mg= 2 tab(s), Oral, q6hr, PRN Al hydroxide/Mg hydroxide/simethicone 200 mg-200 mg-20 mg/5 mL oral suspension, 30 mL, Oral, q6hr, PRN amLODIPine 10 mg Tab, 10 mg= 1 tab(s), Oral, Daily atenolol 25 mg Tab, 25 mg= 1 tab(s), Oral, Daily Ativan 0.5 mg Tab, 0.5 mg= 1 tab(s), Oral, BID, PRN baricitinib 2 mg oral tablet, 4 mg= 2 tab(s), Oral, Daily budesonide 0.25 mg/2 mL Inh Susp, 0.25 mg= 2 mL, NEB, BID busPIRone 10 mg Tab, 15 mg= 1.5 tab(s), Oral, TID Cymbalta 60 mg Cap-DR, 60 mg= 1 cap(s), Oral, Daily dexamethasone 4 mg/mL Inj 1 mL, 6 mg= 1.5 mL, IV Push, Daily Dextrose 50% Soln-IV, 40 mL, IV Push, Once, PRN gabapentin 400 mg Cap, 400 mg= 1 cap(s), Oral, TID HumaLOG Sliding Scale, 0-10 Units, SubCutaneous, QIDACHS ibuprofen 800 mg Tab, 800 mg= 1 tab(s), Oral, BID Lovenox 40 mg/0.4 mL SC Darshana, 40 mg= 0.4 mL, SubCutaneous, BID Milk of Magnesia 8% Susp-Oral, 30 mL, Oral, q6hr, PRN Mucinex 600 mg Tab-ER, 1200 mg= 2 tab(s), Oral, BID Zofran 4 mg/2 mL Injection, 4 mg= 2 mL, IV Push, q6hr, PRN Home albuterol 0.083% Inh Darshana 3 mL, 2.5 mg= 3 mL, Inhalation amLODIPine 10 mg Tab, Oral, Daily atenolol 25 mg Tab, Oral, Daily budesonide 90 mcg/inh inhalation powder, 2 puff(s), Inhalation, q4hr busPIRone, 15 mg, Oral, TID cyclobenzaprine, 10 mg, Oral, Daily, Still taking, not as prescribed: per patient takes as needed JRuby duloxetine 60 mg Cap-DR, 1 cap(s), Oral, Daily gabapentin 400 mg Cap, 400 mg= 1 cap(s), Oral, TID ibuprofen 800 mg Tab, Oral, BID Vitamin C, 1tablet, Oral, Daily, Self Directed Normal [facility] Comment on above: Result Comment: Elec tronically Signed By: Peggy Steve Other Comment: Jyoti kelley Insurance Correspondence Off iceon 05-14-2020 Insurance Correspondence Office [id number]# 1.00CD:127 Normal [facility] Coding Summary.on 05-12-2020 Coding Summary. CODING DATE: 05/12/2020 FINAL [facility] STATUS: Home w/ Home Health PAYOR: Commercial Insurance GROUPERS: [id number] MS-DRG SEPTICEMIA OR SEVERE SEPSIS WITHOUT MV >96 HOURS WITH HALF-WAY Low Trim 0 High Trim 999 720 APR-DRG SEPTICEMIA AND DISSEMINATED INFECTIONS Severity of Illness Extreme Risk of Mortality Extreme DIAGNOSES: ADMIT DX: A41.89 Other specified sepsis REASON FOR VISIT DX: FINAL DX: PRINCIPAL: A41.89 Y Other specified sepsis SECONDARY: U07.1 Y COVID-19 J12.89 Y Other viral pneumonia J96.01 Y Acute respiratory failure with hypoxia E87.1 Y Hypo-osmolality and hyponatremia D68.69 N Other thrombophilia Z68.43 1 Body mass index [BMI] 50.0-59.9, adult B37.0 N Candidal stomatitis R19.7 Y Diarrhea, unspecified E86.0 Y Dehydration J45.909 Y Unspecified asthma, uncomplicated E66.01 Y Morbid (severe) obesity due to excess calories I10 Y Essential (primary) hypertension F41.8 Y Other specified anxiety disorders K21.9 Y Gastro-esophageal reflux disease without esophagitis Z87.891 1 Personal history of nicotine dependence Z79.899 1 Other post acute care nurse practitioner (current) drug therapy PROCEDURES: DOCTOR NAME DATE [id number] Introduction of Sharmila TUCKER MD, Hasxiomara 04/28/2020 Anti-infective into Peripheral Vein, Percutaneous Approach, [employer] 5 [id number] Introduction of Sharmila TUCKER MD, Hasxiomara 04/29/2020 Anti-infective into Peripheral Vein, Percutaneous Approach, [employer] 5 [id number] Introduction of Sharmila TUCKER MD, Hasxiomara 04/30/2020 Anti-infective into Peripheral Vein, Percutaneous Approach, [employer] 5 [id number] Introduction of Sharmila TUCKER MD, Hasan 05/01/2020 Anti-infective into Peripheral Vein, Percutaneous Approach, [employer] 5 [id number] Introduction of Sharmila TUCKER MD, Hasxiomara 05/02/2020 Anti-infective into Peripheral Vein, Percutaneous Approach, [employer] 5 NOTE: The code number assigned matches the documented diagnosis and / or procedure in the patient's chart. However, the narrative phrase printed from the coding software may appear abbreviated, or result in slightly different terminology. Coded By: Marybeth Gregorio Date Saved: 05/12/2020 10:05 am Normal [facility] Discharge Instructionson Discharge Instructions [id number]# 1.00CD:127 Normal [facility] Prescriptions/Work Noteson 0 05-11-2020 Prescriptions/Work Notes [id number]# 1.00CD:127 Normal [facility] CMPon 05-10-2020 Albumin [Mass/Vol] 3.4 g/dL Normal 3.3-5.0 [facility] Comment on above: Performed By: #### 1 [id number], [id number], [id number] #### [facility] [address] [place] [address] Albumin [Mass/Vol] 1.0 g/dL Low 1.1-2.2 [facility] Comment on above: Performed By: #### 1 [id number], 5563984, 5777740 #### [facility] [address] [place] [address] ALP [Catalytic activity/Vol] 78 Int._Unit/L Normal 21-98 [facility] Comment on above: Performed By: #### 1 [id number], 7554501, 3080634 #### [facility] [address] [place] [address] ALT No additional P-5'-P [Catalytic activity/Vol] 16 Int._Unit/L Normal 6-46 [facility] Comment on above: Performed By: #### 1 [id number], 2933965, 7201528 #### [facility] [address] [place] [address] Anion gap [Moles/Vol] 11 mmol/L Normal 6-16 [facility] Comment on above: Performed By: #### 1 [id number], 8309740, 0590378 #### [facility] [address] [place] [address] AST [Catalytic activity/Vol] 12 Int._Unit/L Normal 5-43 [facility] Comment on above: Performed By: #### 1 [id number], 2483692, 2978396 #### [facility] [address] [place] [address] Bilirubin [Mass/Vol] 0.2 mg/dL Normal 0.0-1.1 [facility] Comment on above: Performed By: #### 1 7856595, 9824275, 8977200 #### [facility] [address] [place] [address] Calcium [Mass/Vol] 9.0 mg/dL Normal 8.9-11.1 [facility] Comment on above: Performed By: #### 1 0584705, 6041540, 3642087 #### [facility] [address] [place] [address] Chloride [Moles/Vol] 102 mmol/L Normal 101-111 [facility] Comment on above: Performed By: #### 1 2505905, 3027626, 9665906 #### [facility] [address] [place] [address] CO2 [Moles/Vol] 26 mmol/L Normal 21-31 [facility] Comment on above: Performed By: #### 1 8916704, 9910568, 6049073 #### [facility] [address] [place] [address] Creatinine [Mass/Vol] 0.6 mg/dL Normal 0.5-1.3 [facility] Comment on above: Performed By: #### 1 6544009, 1444845, 8548640 #### [facility] [address] [place] [address] Globulin (S) [Mass/Vol] 3.3 g/dL Normal 1.4-4.0 F [facility] Comment on above: Performed By: #### 1 4393221, 7706625, 2198249 #### [facility] [address] [place] [address] Glucose [Mass/Vol] 116 mg/dL Normal 55-199 [facility] Comment on above: Result Comment: If t his glucose result represents a fasting glucose, interpretation should refer to the following reference range: 55-99 mg/dL Performed By: #### 1 [id number], 0263261, 1908386 #### [facility] [address] [place] [address] Potassium [Moles/Vol] 4.1 mmol/L Normal 3.5-5.3 [facility] Comment on above: Performed By: #### 1 2183926, 1184898, 9809842 #### [facility] [address] [place] [address] Protein [Mass/Vol] 6.7 g/dL Normal 6.0-7.8 [facility] Comment on above: Performed By: #### 1 7481485, 8262432, 9999974 #### [facility] [address] [place] [address] Sodium [Moles/Vol] 135 mmol/L Normal 135-145 [facility] Comment on above: Performed By: #### 1 9504225, 6625344, 3593496 #### [facility] [address] [place] [address] Urea nitrogen [Mass/Vol] 18 mg/dL Normal 5-21 [facility] Comment on above: Performed By: #### 1 5326574, 5667814, 3171697 #### [facility] [address] [place] [address] Urea nitrogen/Creatinine [Mass ratio] 30 No Units High 10-20 [facility] Comment on above: Performed By: #### 1 8244450, 0041539, 1169794 #### [facility] [address] [place] [address] Capillary Glucose POCon 04-25 Glucose [Mass/Vol] 219 mg/dL High 55-99 [facility] Comment on above: Result Comment: Willy POSEY Performed By: #### 2 [id number] ####[facility] [address] [place] [address] Glucose [Mass/Vol] 97 mg/dL Normal 55-99 [facility] Comment on above: Result Comment: Willy POSEY Performed By: #### 1 3565715, 5330149, 0698071 #### [facility] [address] [place] [address] D-Dimeron 05-10-2020 Fibrin D-dimer FEU (PPP) [Mass/Vol] 1543 ng/mL Abnormal 215-500 [facility] Comment on above: Result Comment: Resu lts Verified By Repeat Analysis. Results Called To Marlo Adhikari By JUAN And Read Back For Confirmation On 05/10/2020 07:35:50 EST. This D-Dimer assay may be used in conjunction with a non-high clinical pretest probability assessment to exclude deep-vein thrombosis(DVT). For exclusion of venous thrombosis or pulmonary embolism the analyte D-Dimer should not be used as an aid in patients with: Therapeutic dose anticoagulant therapy for >24 hours Fibrinolytic therapy within previous 7 days Trauma or surgery within previous 4 weeks Disseminated malignacies Aortic aneurysm Sepsis, severe infections, pneumonia, severe skin infections Liver cirrhosis Performed By: #### 1 5557516, 6212466, 2094535 #### [facility] [address] [place] [address] Inpatient Clinical Summaryon 05-10-2020 Inpatient Clinical Summary [address] [address] Clinical Summary Person Information: Name: SAMARA GUERRA Age: 40 Years : 1980 Sex: Female PCP: MARS SOW MD Marital Status: Single Race: White Ethnicity: Non- or Language: Mohawk Visit Id: Visit Reason: SOB - Shortness of breath; COVID POSITIVE- SOB Speciality: Acuity: Enc Type: Inpatient Med Service: Medical Arrival: 04/28/2020 10:08:32 Discharge: Dispo Type: [facility] Address: [address] [place] [address] [address] [facility] [phone] Provider Notes: Addendum by Amrik MYERS MD on May 10, 2020 14:01:26 EST Diagnosis: 1:Acute respiratory failure with hypoxia; 2:Pneumonia due to COVID-19 virus; 3:Allergic asthma; 4:Hyponatremia; 5:Hypertension; 6:Chronic GERD; 7:Depression with anxiety; 8:Morbid obesity due to excess calories; 9:No contraindication to deep vein thrombosis (DVT) prophylaxis Problems Active Chronic GERD Morbid obesity due to excess calories Depression with anxiety Hypertension Morbid obesity with body mass index of 50 or higher Headache Anxiety Asthma Smoking Status: Former Smoker Functional Status: Sensory Deficits: No hearing deficits History of Falls: Mobility Assistance Prior to Admission: Independent ADLs: Independent Current Level of Assistance for Self-Care/Mobility: Cognitive Status: Oriented x 3 Allergies Dust (Allergy test positive) lisinopril (Swelling of throat) Measurements: Height: 160 cm Weight: 128.8 kg Blood Pressure: 143 mmHg / 69 mmHg BMI: 50.12 kg/m2 Procedures No Procedures Documented Immunizations No Immunizations Documented This Visit Final Med List: albuterol (albuterol 0.083% Inh Darshana 3 mL) 3 Milliliter Inhalation. Q6H and PRN. amlodipine (amLODIPine 10 mg Tab) By Mouth every day. ascorbic acid (Vitamin C) 1tablet By Mouth every day. aspirin (aspirin 81 mg Oral EC Tab) 1 Tablets By Mouth every day for 3 Weeks. Refills: 0. atenolol (atenolol 25 mg Tab) By Mouth every day. budesonide (budesonide 90 mcg/inh inhalation powder) 2 Puffs Inhalation every 4 hours. or as needed. busPIRone 15 Milligram By Mouth 3 times a day. cyclobenzaprine 10 Milligram By Mouth every day. duloxetine (duloxetine 60 mg Cap-DR) 1 Capsules By Mouth every day. (do not crush or chew). gabapentin (gabapentin 400 mg Cap) 1 Capsules By Mouth 3 times a day. guaifenesin (Mucinex 600 mg Tab-ER) 2 Tablets By Mouth 2 times a day as needed Cough and Congestion. Refills: 0. Misc Prescription (Pulse Oximeter) 0. Dx: hypoxia, covid-19. Refills: 0. nystatin (nystatin 100,000 units/mL Oral Susp) 5 Milliliter Oral-Swish &SPIT 4 times a day for 7 Days. Refills: 0. predniSONE (predniSONE 10 mg Tab) 30mg PO x 1 dose, then 20mg PO QD x 3days, then 10mg QD x3 days, then stop.. Refills: 0. Care Team Members: Attending Physician: Isa TUCKER MD Consulting Physician: Peggy Steve Referring Physician: Follow up: With: Address: When: Abner Kothari [address] [place], [place] [phone] Business (1) Within 1 to 2 weeks Comments: Call for followup appointment Call physician if symptoms worsen With: Address: When: MARS SOW [address] [place] [address], [address] [place] [phone] Business (1) Within 1 to 2 weeks Comments: Call for followup appointment Call physician if symptoms worsen Patient Education Information: Prevent the Spread of COVID-19 if You Are Sick - CDC; COVID-19: How to Protect Yourself and Others - CDC; COVID-19; Core Measures- Pneumonia [facility] (Custom) Normal [facility] Inpatient Patient Summaryon 05-10-2020 Inpatient Patient Summary [place] [id number] Patient Discharge Instructions PERSON INFORMATION Name: SAMARA GUERRA Date of : 1980 Current Date: 05/10/2020 14:46:22 PHYSICIANS Admitting Physician: Isa TUCKER MD Primary Care Physician: MARS SOW MD PCP Comment: Discharge Diagnosis: 1:Acute respiratory failure with hypoxia; 2:Pneumonia due to COVID-19 virus; 3:Allergic asthma; 4:Hyponatremia; 5:Hypertension; 6:Chronic GERD; 7:Depression with anxiety; 8:Morbid obesity due to excess calories; 9:No contraindication to deep vein thrombosis (DVT) prophylaxis Condition at Discharge: Improved SAMARA GUERRA has been given the following list of follow-up instructions, prescriptions, and patient education materials: PATIENT FOLLOW-UP INFORMATION Diet: Fat Modified- Low cholesterol Discharge Activity: Activity as tolerated Discharge Restrictions: Do not operate machinery or tools, Do not make important decisions for 24 hours, Do not drink alcoholic beverages for 24 hours Wound Care Instructions: Remove Your Dressing In Days Call Your Doctor For: IF UNABLE TO CONTACT YOUR PHYSICIAN AND YOU FEEL IT IS AN EMERGENCY, GO TO THE NEAREST EMERGENCY ROOM OR CALL 911 Home Treatment: Devices/Equipment: Special Services: Additional Instructions: Primary Care Physician to provide the following pending test results: None Follow up: With: Address: When: Abner Kothari [address] [place], [place] [phone] [facility] () Within 1 to 2 weeks Comments: Call for followup appointment Call physician if symptoms worsen With: Address: When: MARS JUANJOSE [address] [place] [address] [address] [place] [phone] [facility] () Within 1 to 2 weeks Comments: Call for followup appointment Call physician if symptoms worsen In the event that this physician does not participate in your insurance network, please consult with your insurance company to find a nearby participating provider. Comment: CHARLIE Faith DIANE A, have received the attached patient education materials/instruction s and have verbalized understanding: Patient Signature Date Clinican/Nurse Signature Date HERE ARE THE MEDICATION CHANGES THAT OCCURRED DURING YOUR HOSPITAL STAY [id number], [address] [place], [place] [phone], [phone] aspirin (aspirin 81 mg Oral EC Tab) 1 Tablets By Mouth every day for 3 Weeks. Refills: 0. Last Dose: ____Next Dose: ____ guaifenesin (Mucinex 600 mg Tab-ER) 2 Tablets By Mouth 2 times a day as needed Cough and Congestion. Refills: 0. Last Dose: ____Next Dose: ____ nystatin (nystatin 100,000 units/mL Oral Susp) 5 Milliliter Oral-Swish &SPIT 4 times a day for 7 Days. Refills: 0. Last Dose: ____Next Dose: ____ predniSONE (predniSONE 10 mg Tab) 30mg PO x 1 dose, then 20mg PO QD x 3days, then 10mg QD x3 days, then stop.. Refills: 0. Last Dose: ____Next Dose: ____ Printed Prescriptions Misc Prescription (Pulse Oximeter) 0. Dx: hypoxia, covid-19. Refills: 0. Last Dose: ____Next Dose: ____ Medications to Continue Taking That Have Changed Other Medications START: gabapentin (gabapentin 400 mg Cap) 1 Capsules By Mouth 3 times a day. Last Dose: ____Next Dose: ____ Medications to Continue with No Changes Other Medications albuterol (albuterol 0.083% Inh Darshana 3 mL) 3 Milliliter Inhalation. Q6H and PRN. Last Dose: ____Next Dose: ____ amlodipine (amLODIPine 10 mg Tab) By Mouth every day. Last Dose: ____Next Dose: ____ ascorbic acid (Vitamin C) 1tablet By Mouth every day. Last Dose: ____Next Dose: ____ atenolol (atenolol 25 mg Tab) By Mouth every day. Last Dose: ____Next Dose: ____ budesonide (budesonide 90 mcg/inh inhalation powder) 2 Puffs Inhalation every 4 hours. or as needed. Last Dose: ____Next Dose: ____ busPIRone 15 Milligram By Mouth 3 times a day. Last Dose: ____Next Dose: ____ cyclobenzaprine 10 Milligram By Mouth every day. Last Dose: ____Next Dose: ____ duloxetine (duloxetine 60 mg Cap-DR) 1 Capsules By Mouth every day. (do not crush or chew). Last Dose: ____Next Dose: ____ No Longer Take the Following Medications ibuprofen (ibuprofen 800 mg Tab) By Mouth 2 times a day. Comment: MEDICATION LIST PROVIDED FOR YOU IS A LIST OF YOUR CURRENT MEDICATIONS. PLEASE CARRY THIS WITH YOU AT ALL TIMES. albuterol (albuterol 0.083% Inh Darshana 3 mL) 3 Milliliter Inhalation. Q6H and PRN. amlodipine (amLODIPine 10 mg Tab) By Mouth every day. ascorbic acid (Vitamin C) 1tablet By Mouth every day. aspirin (aspirin 81 mg Oral EC Tab) 1 Tablets By Mouth every day for 3 Weeks. Refills: 0. atenolol (atenolol 25 mg Tab) By Mouth every day. budesonide (budesonide 90 mcg/inh inhalation powder) 2 Puffs Inhalation every 4 hours. or as needed. busPIRone 15 Milligram By Mouth 3 times a day. cyclobenzaprine 10 Milligram By Mouth every day. duloxetine (duloxetine 60 mg Cap-DR) 1 Capsules By Mouth every day. (do not crush or chew). gabapentin (gabapentin 400 mg Cap) 1 Capsules By Mouth 3 times a day. guaifenesin (Mucinex 600 mg Tab-ER) 2 Tablets By Mouth 2 times a day as needed Cough and Congestion. Refills: 0. Misc Prescription (Pulse Oximeter) 0. Dx: hypoxia, covid-19. Refills: 0. nystatin (nystatin 100,000 units/mL Oral Susp) 5 Milliliter Oral-Swish &SPIT 4 times a day for 7 Days. Refills: 0. predniSONE (predniSONE 10 mg Tab) 30mg PO x 1 dose, then 20mg PO QD x 3days, then 10mg QD x3 days, then stop.. Refills: 0. Pharmacy Information: [facility] Comment: PATIENT EDUCATION INFORMATION Instructions: Prevent the Spread of COVID-19 if You Are Sick If you are sick with COVID-19 or think you might have COVID-19, follow the steps below to help protect other people in your home and community. Stay home except to get medical care. ? Stay home. Most people with COVID-19 have mild illness and are able to recover at home without medical care. Do not leave your home, except to get medical care. Do not visit public areas. ? Take care of yourself. Get rest and stay hydrated. ? Get medical care when needed. Call your doctor before you go to their office for care. But, if you have trouble breathing or other concerning symptoms, call 911 for immediate help. ? Avoid public transportation, ride-sharing, or taxis. Separate yourself from other people and pets in your home. ? As much as possible, stay in a specific room and away from other people and pets in your home. Also, you should use a separate bathroom, if available. If you need to be around other people or animals in or outside of the home, wear a cloth face covering. ? See COVID-19 and Animals if you have questions about pets: https://www.cdc.gov/c oronavirus/2019- ncov/faq.html#COVID19 animals Monitor your symptoms. ? Common symptoms of COVID-19 include fever and cough. Trouble breathing is a more serious symptom that means you should get medical attention. ? Follow care instructions from your healthcare provider and local health department. Your local health authorities will give instructions on checking your symptoms and reporting information. If you develop emergency warning signs for COVID-19 get medical attention immediately. Emergency warning signs include*: ? Trouble breathing ? Persistent pain or pressure in the chest ? New confusion or not able to be woken ? Bluish lips or face *This list is not all inclusive. Please consult your medical provider for any other symptoms that are severe or concerning to you. Call 911 if you have a medical emergency. If you have a medical emergency and need to call 911, notify the cracking and fanning machine operator that you have or think you might have, COVID-19. If possible, put on a facemask before medical help arrives. Call ahead before visiting your doctor. ? Call ahead. Many medical visits for routine care are being postponed or done by phone or telemedicine. ? If you have a medical appointment that cannot be postponed, call your doctor's office. This will help the office protect themselves and other patients. If you are sick, wear a cloth covering over your nose and mouth. ? You should wear a cloth face covering over your nose and mouth if you must be around other people or animals, including pets (even at home). ? You don't need to wear the cloth face covering if you are alone. If you can't put on a cloth face covering (because of trouble breathing for example), cover your coughs and sneezes in some other way. Try to stay at least 6 feet away from other people. This will help protect the people around you. Note: During the COVID-19 pandemic, medical grade facemasks are reserved for healthcare workers and some first responders. You may need to make a cloth face covering using a scarf or bandana. Cover your coughs and sneezes. ? Cover your mouth and nose with a tissue when you cough or sneeze. ? Throw used tissues in a lined trash can. ? Immediately wash your hands with soap and water for at least 20 seconds. If soap and water are not available, clean your hands with an alcohol-based hand reading intervention teacher that contains at least 60% alcohol. Clean your hands often. ? Wash your handsoften with soap and water for at least 20 seconds. This is especially important after blowing your nose, coughing, or sneezing; going to the bathroom; and before eating or preparing food. ? Use hand reading intervention teacher if soap and water are not available. Use an alcohol-based hand reading intervention teacher with at least 60% alcohol, covering all surfaces of your hands and rubbing them together until they feel dry. ? Soap and water are the best option, especially if your hands are visibly dirty. ? Avoid touching your eyes, nose, and mouth with unwashed hands. Avoid sharing personal household items. ? Do not share dishes, drinking glasses, cups, eating utensils, towels, or bedding with other people in your home. ? Wash these items thoroughly after using them with soap and water or put them in the display artist. Clean all high-touch surfaces everyday. ? Clean and disinfect high-touch surfaces in your sick room and bathroom. Let someone else clean and disinfect surfaces in common areas, but not your bedroom and bathroom. ? If a caregiver or other person needs to clean and disinfect a sick person's bedroom or bathroom, they should do so on an as-needed basis. The caregiver/other person should wear a mask and wait as long as possible after the sick person has used the bathroom. High-touch surfaces include phones, remote controls, counters, tabletops, doorknobs, bathroom fixtures, toilets, keyboards, tablets, and bedside tables. ? Clean and disinfect areas that may have blood, stool, or body fluids on them. ? Use household hand booked folder and stitcher and disinfectants. Clean the area or item with soap and water or another detergent if it is dirty. Then use a household disinfectant. ? Be sure to follow the instructions on the label to ensure safe and effective use of the product. Many products recommend keeping the surface wet for several minutes to ensure germs are killed. Many also recommend precautions such as wearing gloves and making sure you have good ventilation during use of the product. ? Most EPA-registered household disinfectants should be effective. How to discontinue home isolation ? People with COVID-19 who have stayed home (home isolated) can stop home isolation under the following conditions: ? If you will not have a test to determine if you are still contagious, you can leave home after these three things have happened: ? You have had no fever for at least 72 hours (that is three full days of no fever without the use medicine that reduces fevers) AND ? other symptoms have improved (for example, when your cough or shortness of breath has improved) AND ? at least 7 days have passed since your symptoms first appeared. ? If you will be tested to determine if you are still contagious, you can leave home after these three things have happened: ? You no longer have a fever (without the use of medicine that reduces fevers) AND ? other symptoms have improved (for example, when your cough or shortness of breath has improved) AND ? you received two negative tests in a row, 24 hours apart. Your doctor will follow CDC guidelines. In all cases, follow the guidance of your healthcare provider and local health department. The decision to stop home isolation should be made in consultation with your healthcare provider and state and local health departments. Local decisions depend on local circumstances. cdc.gov/coronavirus 08/10/2019 This information is not intended to replace advice given to you by your health care provider. Make sure you discuss any questions you have with your health care provider. Document Released: 08/07/2019 Document Revised: 08/10/2019 Document Reviewed: 08/07/2019 [employer] Patient Education ? 2020 [employer] COVID-19: How to Protect Yourself and Others Know how it spreads ? There is currently no vaccine to prevent coronavirus disease 2019 (COVID-19). ? The best way to prevent illness is to avoid being exposed to this virus. ? The virus is thought to spread mainly from mpfmsc-rk-oojeld. ? Between people who are in close contact with one another (within about 6 feet). ? Through respiratory droplets produced when an infected person coughs, sneezes or talks. ? These droplets can land in the mouths or noses of people who are nearby or possibly be inhaled into the lungs. ? Some recent studies have suggested that COVID-19 may be spread by people who are not showing symptoms. Everyone should Clean your hands often ? Wash your hands often with soap and water for at least 20 seconds especially after you have been in a public place, or after blowing your nose, coughing, or sneezing. ? If soap and water are not readily available, use a hand reading intervention teacher that contains at least 60% alcohol. Cover all surfaces of your hands and rub them together until they feel dry. ? Avoid touching your eyes, nose, and mouth with unwashed hands. Avoid close contact ? Avoid close contact with people who are sick. ? Stay at home as much as possible. ? Put distance between yourself and other people. ? Remember that some people without symptoms may be able to spread virus. ? This is especially important for people who are at higher risk of getting very sick.https://www.cdc. gov/coronavirus/2019- ncov/cadw-mvpmt-kypwp utions/yumhoo-wp-fscz er-risk.html Cover your mouth and nose with a cloth face cover when around others ? You could spread COVID-19 to others even if you do not feel sick. ? Everyone should wear a cloth face cover when they have to go out in public, for example to the grocery store or to sweet pickled fruit maker other necessities. ? Cloth face coverings should not be placed on young children under age 2, anyone who has trouble breathing, or is unconscious, incapacitated or otherwise unable to remove the mask without assistance. ? The cloth face cover is meant to protect other people in case you are infected. ? Do NOT use a facemask meant for a healthcare worker. ? Continue to keep about 6 feet between yourself and others. The cloth face cover is not a substitute for social distancing. Cover coughs and sneezes ? If you are in a private setting and do not have on your cloth face covering, remember to always cover your mouth and nose with a tissue when you cough or sneeze or use the inside of your elbow. ? Throw used tissues in the trash. ? Immediately wash your hands with soap and water for at least 20 seconds. If soap and water are not readily available, clean your hands with a hand reading intervention teacher that contains at least 60% alcohol. Clean and disinfect ? Clean AND disinfect frequently touched surfaces daily. This includes tables, doorknobs, light switches, countertops, handles, desks, phones, keyboards, toilets, faucets, and sinks. https://www.cdc.gov/c oronavirus/2019-ncov/ xuqutrs-wmkebbj-hyjh/ fkbxjxojnmiq-fmec-bjo e.html ? If surfaces are dirty, clean them: Use detergent or soap and water prior to disinfection. cdc.gov/coronavirus 08/04/2019 This information is not intended to replace advice given to you by your health care provider. Make sure you discuss any questions you have with your health care provider. Document Released: 08/07/2019 Document Revised: 08/10/2019 Document Reviewed: 08/07/2019 [employer] Patient Education ? 2020 [employer] COVID-19 COVID-19, also known as coronavirus disease or novel coronavirus, is caused by a type of virus that causes respiratory illness. This may lead to inflammation and the buildup of mucus and fluids in the airway of the lungs (pneumonia). There are many different coronaviruses. Most of these viruses only affect animals, but sometimes these viruses can change and infect people. What are the causes? This illness is caused by a virus. You may catch the virus by: ? Breathing in droplets from an infected person's cough or sneeze. ? Touching something, like a table or a doorknob, that was exposed to the virus (contaminated) and then touching your mouth, nose, or eyes. ? Being around animals that carry the virus, or eating uncooked or undercooked meat or animal products that contain the virus. What increases the risk? You are more likely to develop this condition if you: ? Live in or travel to an area with a COVID-19 outbreak. ? Come in contact with a sick person who recently traveled to an area with a COVID-19 outbreak. ? Provide care for or live with a person who is infected with COVID-19. What are the signs or symptoms? COVID-19 causes respiratory illness that can lead to pneumonia. Symptoms of pneumonia may include: ? A fever. ? A cough. ? Difficulty breathing. How is this diagnosed? This condition may be diagnosed based on: ? Your signs and symptoms, especially if: ? You live in an area with a COVID-19 outbreak. ? You recently traveled to or from an area where the virus is common. ? You provide care for or live with a person who was diagnosed with COVID-19. ? A physical exam. ? Lab tests, which may include: ? A nasal swab to take a sample of fluid from your nose. ? A throat swab to take a sample of fluid from your throat. ? A sample of mucus from your lungs (sputum). ? Blood tests. How is this treated? There is no medicine to treat COVID-19. Your health care provider will talk with you about ways to treat your symptoms. This may include rest, fluids, and vtql-qkw-qwwhoea medicines. Follow these instructions at home: Lifestyle ? Use a cool-mist humidifier to add moisture to the air. This can help you breathe more easily. ? Do not use any products that contain nicotine or tobacco, such as cigarettes, e-cigarettes, and chewing tobacco. If you need help quitting, ask your health care provider. ? Rest at home as told by your health care provider. ? Return to your normal activities as told by your health care provider. Ask your health care provider what activities are safe for you. General instructions ? Take vzvq-ciz-vddvdom and prescription medicines only as told by your health care provider. ? Drink enough fluid to keep your urine pale yellow. ? Keep all follow-up visits as told by your health care provider. This is important. How is this prevented? There is no vaccine to help prevent COVID-19 infection. However, there are steps you can take to protect yourself and others from this virus. To protect yourself: ? Do not travel to areas where COVID-19 is a risk. The areas where COVID-19 is reported change often. To identify high-risk areas, check the CDC travel website: wwwnc.cdc.gov/travel/ notices ? If you live in, or must travel to, an area where COVID-19 is a risk, take precautions to avoid infection. ? Stay away from people who are sick. ? Stay away from places where there are animals that may carry the virus. This includes places where animals and animal products are sold. Note that both living and animals can carry the virus. ? Wash your hands often with soap and water. If soap and water are not available, use an alcohol-based hand reading intervention teacher. ? Avoid touching your mouth, face, eyes, or nose. To protect others: If you have symptoms, take steps to prevent the virus from spreading to others. ? If you think you have a COVID-19 infection, contact your health care provider right away. Tell your health care team that you think you may have a COVID-19 infection. ? Stay home. Leave your house only to seek medical care. ? Do not travel while you are sick. ? Wash your hands often with soap and water. If soap and water are not available, use alcohol-based hand reading intervention teacher. ? Stay away from other members of your household. If possible, stay in your own room, separate from others. Use a different bathroom. ? Make sure that all people in your household wash their hands well and often. ? Cough or sneeze into a tissue or your sleeve or elbow. Do not cough or sneeze into your hand or into the air. ? Wear a face mask. Where to find more information ? Centers for Disease Control and Prevention: www.cdc.gov/coronavir us/2019-ncov/index.ht ml ? World Health Organization: www.who.int/health-to pics/coronavirus Contact a health care provider if: ? You have traveled to an area where COVID-19 is a risk and you have symptoms of the infection. ? You have contact with someone who has traveled to an area where COVID-19 is a risk and you have symptoms of the infection. Get help right away if: ? You have trouble breathing. ? You have chest pain. Summary ? COVID-19 is caused by a type of virus that causes respiratory illness. This may lead to inflammation and the buildup of mucus and fluids in the airway of the lungs (pneumonia). ? You are more likely to develop this condition if you live in or travel to an area with a COVID-19 outbreak. ? There is no medicine to treat COVID-19. Your health care provider will talk with you about ways to treat your symptoms. ? Take steps to protect yourself and others from infection. Wash your hands often. Stay away from other people who are sick and wear a mask if you are sick. This information is not intended to replace advice given to you by your health care provider. Make sure you discuss any questions you have with your health care provider. Document Released: 05/17/2019 Document Revised: 08/07/2019 Document Reviewed: 05/17/2019 [employer] Patient Education ? 2019 [employer] Pneumonia Pneumonia is an infection of the lungs which may be viral or bacterial (with germs). Most forms of infectious (disease producing) pneumonias are bacterial. This means the are caused by a germ. Usually these infections are caused by breathing in infectious particles into the respiratory tract (lungs). SYMPTOMS The most common symptoms (problems) are: Cough. Fever. Chest pain. Increased rate of breathing. Wheezing. Sputum production. DIAGNOSIS Often these infections are diagnosed on exam by your caregiver. Sometimes the diagnosis (learning what is wrong) may require chest x-rays, blood analysis, and or cultures. Your caregiver may do tests (such as blood gasses or pulse oximetry) to see how well your lungs are working. Blood cultures may be done to help find the cause of your pneumonia. TREATMENT The bacterial pneumonias generally respond well to antibiotics (medications which kill germs). Viral infections must run their course. These infections will not respond to antibiotics. A pneumococcal vaccine (shot) is available to prevent a common bacterial pneumonia. This is usually suggested for the elderly and for other groups of higher risk individuals, such as those on chemotherapy or those that have problems with their immune system. You will have pneumococcal screening or vaccination if you are over 65 years old and are not immunized. You have received a pneumococcal vaccination on: If you are a smoker, it is time to quit. You will receive instructions on how to best stop smoking. Your caregivers can provide medications and counseling to help you quit. HOME CARE INSTRUCTIONS Cough suppressants may be used if you are losing too much rest; however cough protects you by clearing your lungs. This is one reason for not using cough suppressants, if able, as they take away this protection. Your caregiver may have prescribed an antibiotic if she or he feels your cough is caused by a bacterial infection. Take all your medication until you are finished. Your caregiver may also prescribe an expectorant to loosen the mucous to be coughed up. Only take atbk-rxv-bhyhxxc or prescription medicines for pain, discomfort, or fever as directed by your caregiver. Smoking is a common cause of bronchitis and can contribute to pneumonia. Stopping this habit is an important self help step. A cold steam vaporizer or humidifier in your room or home may help loosen mucous. Cough is most often worse at night. Sleeping in a semi-upright position in a recliner, or using a couple pillows under your head will help with this. Get rest as you feel it is needed. Your body will usually let you know when to rest. If you are a smoker and continue to smoke, your cough may last several weeks after your pneumonia has cleared. Exercise your lungs. Deep breathing helps to open the air passages in your lungs. Coughing helps to bring up sputum (mucus) from your lungs. Take a deep breath and hold the breath as long as you can. Then push the air out of your lungs with a deep, strong cough. Put any sputum that you have coughed up into a tissue and throw it away. Take 10 deep breaths in a row every hour that you are awake. Remember to follow each deep breath with a cough. SEEK IMMEDIATE MEDICAL CARE IF: You develop more purulent (pus like) sputum, have uncontrolled temperature, or your illness becomes worse. This is especially true if you are elderly or weakened from any other disease. You cannot control your cough with suppressants and are losing sleep. You begin coughing up blood. You develop pain which is getting worse or is uncontrolled with medications. You develop an oral temperature above , after being afebrile (not having a temperature for one or more days). Any of the symptoms which initially brought you in for treatment are getting worse rather than better, or you develop shortness of breath or chest pain. Dial 911 for immediate emergency care. AGREEMENT BETWEEN PATIENT AND HEALTHCARE TEAM: Your signature on this document represents an understanding between you and the healthcare team that took care of you today. That means that you: Understand these discharge instructions. Will monitor your condition. Will seek immediate medical care as instructed. Document Released: 04/11/2006 Document Re-Released: 10/07/2008 [employer]Care? Patient Information ?2008 [employer]. Medication Leaflets: You may receive a survey from Don Berrios asking you to rate your care experience. Your feedback is important and will help us understand what we do well and how we can improve the quality of care we provide to you, your loved ones and our community. It?s an honor to serve you. Thank you for choosing [facility] Interdisciplinary Note - Jose e Manageron 05-10-2020 Interdisciplinary Note - Cell Stripper Dr. Myers rounded with patient earlier. CRM called into patients room, patient is alert and participates in plan of care. Patient on COVID isolation. CRM discussed desat and patient require 2L with exertion-patient is agreeable to [facility] DME. CRM discussed HH and patient is agreeable to [facility] HH RN. Insurance information, PCP and DME verified. Contact information provided. Patient denies any further discharge needs/concerns at this time. Anticipated discharge 05/10/2020 with HH and oxygen. CRM to follow. CRM delivered POC to RN. [facility] Comment on above: Result Comment: Elec tronically Signed By: Deb STAHL, Rachel Macias\.br\Date and Time Signed: 05/10/20 13:59 EST Monitor Recordon 05-10-2020 Monitor Record [id number]# 1.00CD:127 [facility] Monitor Record [id number]# 1.00CD:127 [facility] eGFRon 05-10-2020 GFR/1.73 sq M predicted among blacks MDRD (S/P/Bld) [Vol rate/Area] mL/min/{1.73_m2} Normal >=59 [facility] Comment on above: Order Comment: Order added by Discern Expert. Result Comment: eGFR is race adjusted. AA=. Performed By: #### 1 [id number], [id number], [id number] #### [facility] [address] [place] [address] GFR/1.73 sq M predicted among non-blacks MDRD (S/P/Bld) [Vol rate/Area] mL/min/{1.73_m2} Normal >=59 [facility] Comment on above: Order Comment: Order added by Discern Expert. 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 Kidney failure is indicated at less than 15 mL/min/1.73m2. Performed By: #### 1 [id number], [id number], [id number] #### [facility] [address] [place] [address] CMPon 05-09-2020 Albumin [Mass/Vol] 1.1 g/dL Normal 1.1-2.2 [facility] Comment on above: Performed By: #### 1 [id number], [id number], [id number] #### [facility] [address] [place] [address] Albumin [Mass/Vol] 3.4 g/dL Normal 3.3-5.0 [facility] Comment on above: Performed By: #### 1 [id number], [id number], [id number] #### [facility] [address] [place] [address] ALP [Catalytic activity/Vol] 81 Int._Unit/L Normal 21-98 [facility] Comment on above: Performed By: #### 1 [id number], [id number], [id number] #### [facility] [address] [place] [address] ALT No additional P-5'-P [Catalytic activity/Vol] 15 Int._Unit/L Normal 6-46 [facility] Comment on above: Performed By: #### 1 [id number], [id number], [id number] #### [facility] [address] [place] [address] Anion gap [Moles/Vol] 14 mmol/L Normal 6-16 [facility] Comment on above: Performed By: #### 1 [id number], [id number], [id number] #### [facility] [address] [place] [address] AST [Catalytic activity/Vol] 13 Int._Unit/L Normal 5-43 [facility] Comment on above: Performed By: #### 1 [id number], [id number], [id number] #### [facility] [address] [place] [address] Bilirubin [Mass/Vol] 0.2 mg/dL Normal 0.0-1.1 [facility] Comment on above: Performed By: #### 1 [id number], [id number], [id number] #### [facility] [address] [place] [address] Calcium [Mass/Vol] 9.0 mg/dL Normal 8.9-11.1 [facility] Comment on above: Performed By: #### 1 [id number], [id number], [id number] #### [facility] [address] [place] [address] Chloride [Moles/Vol] 102 mmol/L Normal 101-111 [facility] Comment on above: Performed By: #### 1 [id number], [id number], [id number] #### [facility] [address] [place] [address] CO2 [Moles/Vol] 23 mmol/L Normal 21-31 [facility] Comment on above: Performed By: #### 1 [id number], [id number], [id number] #### [facility] [address] [place] [address] Creatinine [Mass/Vol] 0.5 mg/dL Normal 0.5-1.3 [facility] Comment on above: Performed By: #### 1 [id number], [id number], [id number] #### [facility] [address] [place] [address] Globulin (S) [Mass/Vol] 3.2 g/dL Normal 1.4-4.0 F [facility] Comment on above: Performed By: #### 1 [id number], [id number], [id number] #### [facility] [address] [place] [address] Glucose [Mass/Vol] 125 mg/dL Normal 55-199 [facility] Comment on above: Result Comment: If t his glucose result represents a fasting glucose, interpretation should refer to the following reference range: 55-99 mg/dL Performed By: #### 1 [id number], [id number], [id number] #### [facility] [address] [place] [address] Potassium [Moles/Vol] 4.0 mmol/L Normal 3.5-5.3 [facility] Comment on above: Performed By: #### 1 [id number], 4475966, [id number] #### [facility] [address] [place] [address] Protein [Mass/Vol] 6.6 g/dL Normal 6.0-7.8 [facility] Comment on above: Performed By: #### 1 [id number], [id number], [id number] #### [facility] [address] [place] [address] Sodium [Moles/Vol] 135 mmol/L Normal 135-145 [facility] Comment on above: Performed By: #### 1 [id number], [id number], [id number] #### [facility] [address] [place] [address] Urea nitrogen [Mass/Vol] 19 mg/dL Normal 5-21 [facility] Comment on above: Performed By: #### 1 [id number], 8702761, 3561341 #### [facility] [address] [place] [address] Urea nitrogen/Creatinine [Mass ratio] 38 No Units High 10-20 [facility] Comment on above: Performed By: #### 1 [id number], 0501902, [id number] #### [facility] [address] [place] [address] Capillary Glucose POCon 04-25 Glucose [Mass/Vol] 160 mg/dL High 55-99 [facility] Comment on above: Result Comment: Willy POSEY Performed By: #### 2 [id number] ####[facility] [address] [place] [address] Glucose [Mass/Vol] 140 mg/dL High 55-99 [facility] Comment on above: Result Comment: MD Trent bowling Lab Draw Performed By: #### 2 [id number] ####[facility] [address] [place] [address] Glucose [Mass/Vol] 131 mg/dL High 55-99 [facility] Comment on above: Result Comment: Willy POSEY Performed By: #### 1 [id number], [id number], [id number] #### [facility] [address] [place] [address] Glucose [Mass/Vol] 94 mg/dL Normal 55-99 [facility] Comment on above: Result Comment: Willy POSEY Performed By: #### 2 [id number] ####[facility] [address] [place] [address] D-Dimeron 05-09-2020 Fibrin D-dimer FEU (PPP) [Mass/Vol] 1982 ng/mL Abnormal 215-500 [facility] Comment on above: Result Comment: Resu lts Verified By Repeat Analysis Results Called To Amber Vasquez (2N) By And Read Back For Confirmation On 05/09/2020 08:01:35 EST. This D-Dimer assay may be used in conjunction with a non-high clinical pretest probability assessment to exclude deep-vein thrombosis(DVT). For exclusion of venous thrombosis or pulmonary embolism the analyte D-Dimer should not be used as an aid in patients with: Therapeutic dose anticoagulant therapy for >24 hours Fibrinolytic therapy within previous 7 days Trauma or surgery within previous 4 weeks Disseminated malignacies Aortic aneurysm Sepsis, severe infections, pneumonia, severe skin infections Liver cirrhosis Performed By: #### [id number] #### [facility] [address] [place] [address] Interdisciplinary Note - Jose e Manageron 05-09-2020 Interdisciplinary Note - Cell [employer] contacted pt by phone at this time due to Covid. Pt is alert in bed, and feeling much better. Previously rounded with Dr. Myers Aware of plan to stay in hospital today and possible DC tomorrow. Desat study will be needed prior to DC. Pt states ok to use [facility] for supply. Decies any further concerns or DC needs. Declines need to call and update family at this time. Normal [facility] Comment on above: Result Comment: Elec tronically Signed By: Lance STAHL, Isabela\.marie\Date and Time Signed: 05/09/20 11:47 EST Monitor Recordon 05-09-2020 Monitor Record [id number]# 1.00CD:127 Normal [facility] Monitor Record [id number]# 1.00CD:127 Normal [facility] Progress Note-Physicianon Progress Note-Physician Subjective Oxygen has been stable and O2 is weaned down to 3 L/min. Still with intermittent dyspnea and dry cough Review of Systems 12 point system review was done and negative except what mentioned in HPI Objective Vitals & Measurements T: 36.8 ?C (Oral) TMIN: 36.5 ?C (Oral) TMAX: 36.9 ?C (Oral) HR: 70(Monitored) RR: 16 BP: 116/68 SpO2: 96% WT: 129.0 kg Intake & Output This visit (24 hour periods starting at 07:00 EST) 05/09/20 * 05/08/20 05/07/20 Total Summary Intake mL -- 1,948.5 1,051.5 Output mL -- -- -- Fluid Balance -- 1,948.5 1,051.5 Intake (4) Al hydroxide/Mg hydroxide/simethicone mL -- 30 30 Ensure mL -- 237 -- Oral Intake mL -- 1,680 1,020 dexamethasone mL -- 1.5 1.5 Total -- 1,948.5 1,051.5 Output (0) Counts (2) Stool Count -- -- 1 Urine Count -- 5 4 * This column has not completed the indicated time period. Physical Exam General: alert, no acute distress Skin: warm, dry Head: no trauma, normocephalic Neck: Trachea midline, no adenopathy, no tenderness Eye: normal conjunctiva, sclera clear ENMT: TM's clear, oral mucosa moist, no pharyngeal erythema or exudate Cardiovascular: regular rate and rhythm, normal peripheral perfusion Respiratory: Lungs CTA, respirations non labored Chest wall: no deformity. Gastrointestinal: soft, non distended, no tenderness, no guarding. Extremities: no deformity, no trauma Neurological: oriented LOC appropriate for age, CN II-XII intact, motor strength equal & normal bilaterally speech normal Psychiatric: cooperative, Lab Results D-Dimer: 1982 ng/mL Critical (05/09/20 05:52:00) Glucose Lvl: 125 mg/dL (05/09/20 05:52:00) BUN: 19 mg/dL (05/09/20 05:52:00) Creatinine: 0.5 mg/dL (05/09/20 05:52:00) eGFR: >60 (05/09/20 05:52:00) eGFR AA: >60 (05/09/20 05:52:00) BUN/Creat Ratio: 38 High (05/09/20 05:52:00) Sodium Lvl: 135 mmol/L (05/09/20 05:52:00) Potassium Lvl: 4 mmol/L (05/09/20 05:52:00) Chloride: 102 mmol/L (05/09/20 05:52:00) CO2: 23 mmol/L (05/09/20 05:52:00) AGAP: 14 mEq/L (05/09/20 05:52:00) Calcium Lvl: 9 mg/dL (05/09/20 05:52:00) Alk Phos: 81 Int._Unit/L (05/09/20 05:52:00) ALT: 15 Int._Unit/L (05/09/20 05:52:00) AST: 13 Int._Unit/L (05/09/20 05:52:00) Total Protein: 6.6 gm/dL (05/09/20 05:52:00) Albumin Lvl: 3.4 gm/dL (05/09/20 05:52:00) Globulin: 3.2 gm/dL (05/09/20 05:52:00) A/G Ratio: 1.1 (05/09/20 05:52:00) Bili Total: 0.2 mg/dL (05/09/20 05:52:00) Glucose Cap: 131 mg/dL High (05/09/20 11:35:00) POC Device SN: [id number] (05/09/20 11:35:00) POC User ID: [id number] (05/09/20 11:35:00) POC Username: [email or web address] Username (05/09/20 11:35:00) Diagnostic Results Reviewed Images Reviewed Assessment/Plan 1. Acute respiratory failure with hypoxia (J96.01: Acute respiratory failure with hypoxia) 2. Pneumonia due to COVID-19 virus (U07.1: COVID-19) 3. Allergic asthma (J45.909: Unspecified asthma, uncomplicated) 4. Hyponatremia (E87.1: Hypo-osmolality and hyponatremia) 5. Hypertension (I10: Essential (primary) hypertension) 6. Chronic GERD (K21.9: Gastro-esophageal reflux disease without esophagitis) 7. Depression with anxiety (F41.8: Other specified anxiety disorders) 8. Morbid obesity due to excess calories (E66.01: Morbid (severe) obesity due to excess calories) 9. No contraindication to deep vein thrombosis (DVT) prophylaxis (Z78.9: Other specified health status) Acute respiratory failure due to Covid pneumonia she is slowly improving and oxygenation is better. She is currently on prednisone taper 30 mg daily could drop to 20 mg daily tomorrow for 3 days then 10 mg daily for 3 days then stop. If respiratory status is stable over the next 1-2 days okay for discharge from pulmonary standpoint. Desaturation study prior to discharge to determine oxygen need Problem List/Past Medical History Ongoing Anxiety Asthma Chronic GERD Depression with anxiety Headache Hypertension Morbid obesity due to excess calories Morbid obesity with body mass index of 50 or higher Historical No qualifying data Medications Inpatient acetaminophen 325 mg Tab, 650 mg= 2 tab(s), Oral, q6hr, PRN Al hydroxide/Mg hydroxide/simethicone 200 mg-200 mg-20 mg/5 mL oral suspension, 30 mL, Oral, q6hr, PRN albuterol HFA 90 mcg/inh MDI, 180 mcg= 2 puff(s), Inhalation, q4hr, PRN amLODIPine 10 mg Tab, 10 mg= 1 tab(s), Oral, Daily atenolol 25 mg Tab, 25 mg= 1 tab(s), Oral, Daily Ativan 0.5 mg Tab, 0.5 mg= 1 tab(s), Oral, BID, PRN baricitinib 2 mg oral tablet, 4 mg= 2 tab(s), Oral, Daily budesonide 0.25 mg/2 mL Inh Susp, 0.25 mg= 2 mL, NEB, BID busPIRone 10 mg Tab, 15 mg= 1.5 tab(s), Oral, TID Cymbalta 60 mg Cap-DR, 60 mg= 1 cap(s), Oral, Daily Deep Sea Nasal 0.65% nasal spray, 2 spray(s), Nasal, QID Dextrose 50% Soln-IV, 40 mL, IV Push, Once, PRN Ensure Enlive Chocolate 237 mL, 237 mL, Oral, Supper gabapentin 400 mg Cap, 400 mg= 1 cap(s), Oral, TID HumaLOG Sliding Scale, 0-10 Units, SubCutaneous, QIDACHS ibuprofen 800 mg Tab, 400 mg= 0.5 tab(s), Oral, TID, PRN Lovenox 40 mg/0.4 mL SC Darshana, 40 mg= 0.4 mL, SubCutaneous, BID Milk of Magnesia 8% Susp-Oral, 30 mL, Oral, q6hr, PRN Mucinex 600 mg Tab-ER, 1200 mg= 2 tab(s), Oral, BID nystatin 100,000 units/mL Oral Susp, 976655 unit(s)= 5 mL, Oral-Swish&SPIT, QID predniSONE 10 mg Tab, 30 mg= 3 tab(s), Oral, Daily Zofran 4 mg/2 mL Injection, 4 mg= 2 mL, IV Push, q6hr, PRN Home albuterol 0.083% Inh Darshana 3 mL, 2.5 mg= 3 mL, Inhalation amLODIPine 10 mg Tab, Oral, Daily atenolol 25 mg Tab, Oral, Daily budesonide 90 mcg/inh inhalation powder, 2 puff(s), Inhalation, q4hr busPIRone, 15 mg, Oral, TID cyclobenzaprine, 10 mg, Oral, Daily, Still taking, not as prescribed: per patient takes as needed JRuby duloxetine 60 mg Cap-DR, 1 cap(s), Oral, Daily gabapentin 400 mg Cap, 400 mg= 1 cap(s), Oral, TID ibuprofen 800 mg Tab, Oral, BID Vitamin C, 1tablet, Oral, Daily, Self Directed Normal [facility] Comment on above: Result Comment: Elec tronically Signed By: Taye WALTON, Abner Philip\.br\Date and Time Signed: 05/09/20 15:36 EST Progress Note-Physician Assessment/Plan Patient is a 40-year-old lady with a past medical history of asthma, hypertension, GERD, depression with anxiety, morbid obesity?presented to the ED on 04/28 with shortness of breath and cough? being treated for COVID-19 pneumonia, hypoxia 1. Acute respiratory failure with hypoxia (J96.01: Acute respiratory failure with hypoxia) -2/2 bilateral COVID-19 pneumonia. Moved out of ICU 05/05. Improving. -Completed dexamethasone x10 days. Started on prednisone taper -On baricitinib?day 12 -Completed remdesivir x 5 days -Due to elevated D-dimer and wt?c/w Lovenox 40 mg BID- higher dose DVT prophylaxis -On budesonide nebs, albuterol as needed. c/w mucolytics -Monitor inflammatory markers -On Oxymizer at 3L this AM- c/w weaning as tolerated ?appreciate and agree with pulmonology input. -I-S, out of bed to chair with meals. Continue self proning -Maintain Airborne isolation precautions. -Lasix intermittently as needed. 2. Pneumonia due to COVID-19 virus (U07.1: COVID-19) -Refer to #1 3. Allergic asthma (J45.909: Unspecified asthma, uncomplicated) -Stable, not in acute exacerbation. Bronchodilators and supplemental oxygen -Nasal decongestants -c/w nystatin swish n swallow for oral thrush. 4. Hyponatremia (E87.1: Hypo-osmolality and hyponatremia) -resolved 5. Hypertension (I10: Essential (primary) hypertension) -Continue atenolol, amlodipine 6. Chronic GERD (K21.9: Gastro-esophageal reflux disease without esophagitis) -Continue pantoprazole 7. Depression with anxiety (F41.8: Other specified anxiety disorders) -Continue duloxetine, buspirone, gabapentin. Ativan as needed 8. Morbid obesity due to excess calories (E66.01: Morbid (severe) obesity due to excess calories) -BMI 53. Lifestyle modification changes as outpatient 9. No contraindication to deep vein thrombosis (DVT) prophylaxis (Z78.9: Other specified health status) -SCDs, Lovenox Plan discussed in detail patient, nursing staff, CM. This report was transcribed using voice recognition software. Every effort was made to ensure accuracy, however, inadvertently computerized high school learning support teacher mistakes may be present. Dr. Amrik Myers Hospitalist Orders: Ensure, 237 mL, Liquid, Oral, Supper, Routine, Start date 05/08/20 17:00:00 EST, Over Ice Comprehensive Metabolic Panel D-Dimer eGFR Extra Lav Tube Extra SST Tube Subjective Patient seen and examined bedside this morning. States she continues to feel slightly better. Shortness of breath improving. Weakness improving. Sitting up comfortably in chair, just finished breakfast. Denies fevers, chills, abdominal pain, vomiting, diarrhea, chest pain, lightheadedness, dizziness. Review of Systems Negative except HPI Objective Vitals & Measurements T: 36.8 ?C (Oral) TMIN: 36.5 ?C (Oral) TMAX: 36.9 ?C (Oral) HR: 70(Monitored) RR: 16 BP: 116/68 SpO2: 96% WT: 129.0 kg Intake & Output This visit (24 hour periods starting at 07:00 EST) 05/09/20 * 05/08/20 05/07/20 Total Summary Intake mL -- 1,948.5 1,051.5 Output mL -- -- -- Fluid Balance -- 1,948.5 1,051.5 Intake (4) Al hydroxide/Mg hydroxide/simethicone mL -- 30 30 Ensure mL -- 237 -- Oral Intake mL -- 1,680 1,020 dexamethasone mL -- 1.5 1.5 Total -- 1,948.5 1,051.5 Output (0) Counts (2) Stool Count -- -- 1 Urine Count -- 5 4 * This column has not completed the indicated time period. Physical Exam General: Alert and oriented, No acute distress. Eye: Pupils are equal, round and reactive to light. HENT: Normocephalic. Neck: Supple. Respiratory: Normal respiratory effort, clear to auscultation bilaterally, no wheezing/ronchi/rales /crackles. Cardiovascular: Regular rate and rhythm, no murmurs, normal S1,S2 Gastrointestinal: Soft, Non-tender, Non-distended, Normo-active bowel sounds in all quadrants. Musculoskeletal: Normal range of motion. Neurologic: Normal sensory, Normal motor function. CN 2-12 grossly intact. Cognition and Speech: Speech clear and coherent. Psychiatric: Cooperative, Appropriate mood & affect. Integumentary: Warm, [place]. Lab Results D-Dimer: 1982 ng/mL Critical (05/09/20 05:52:00) Glucose Lvl: 125 mg/dL (05/09/20 05:52:00) BUN: 19 mg/dL (05/09/20 05:52:00) Creatinine: 0.5 mg/dL (05/09/20 05:52:00) eGFR: >60 (05/09/20 05:52:00) eGFR AA: >60 (05/09/20 05:52:00) BUN/Creat Ratio: 38 High (05/09/20 05:52:00) Sodium Lvl: 135 mmol/L (05/09/20 05:52:00) Potassium Lvl: 4 mmol/L (05/09/20 05:52:00) Chloride: 102 mmol/L (05/09/20 05:52:00) CO2: 23 mmol/L (05/09/20 05:52:00) AGAP: 14 mEq/L (05/09/20 05:52:00) Calcium Lvl: 9 mg/dL (05/09/20 05:52:00) Alk Phos: 81 Int._Unit/L (05/09/20 05:52:00) ALT: 15 Int._Unit/L (05/09/20 05:52:00) AST: 13 Int._Unit/L (05/09/20 05:52:00) Total Protein: 6.6 gm/dL (05/09/20 05:52:00) Albumin Lvl: 3.4 gm/dL (05/09/20 05:52:00) Globulin: 3.2 gm/dL (05/09/20 05:52:00) A/G Ratio: 1.1 (05/09/20 05:52:00) Bili Total: 0.2 mg/dL (05/09/20 05:52:00) Glucose Cap: 131 mg/dL High (05/09/20 11:35:00) POC Device SN: [id number] (05/09/20 11:35:00) POC User ID: [id number] (05/09/20 11:35:00) POC Username: [email or web address] Username (05/09/20 11:35:00) Problem List/Past Medical History Ongoing Anxiety Asthma Chronic GERD Depression with anxiety Headache Hypertension Morbid obesity due to excess calories Morbid obesity with body mass index of 50 or higher Historical No qualifying data Medications Inpatient acetaminophen 325 mg Tab, 650 mg= 2 tab(s), Oral, q6hr, PRN Al hydroxide/Mg hydroxide/simethicone 200 mg-200 mg-20 mg/5 mL oral suspension, 30 mL, Oral, q6hr, PRN albuterol HFA 90 mcg/inh MDI, 180 mcg= 2 puff(s), Inhalation, q4hr, PRN amLODIPine 10 mg Tab, 10 mg= 1 tab(s), Oral, Daily atenolol 25 mg Tab, 25 mg= 1 tab(s), Oral, Daily Ativan 0.5 mg Tab, 0.5 mg= 1 tab(s), Oral, BID, PRN baricitinib 2 mg oral tablet, 4 mg= 2 tab(s), Oral, Daily budesonide 0.25 mg/2 mL Inh Susp, 0.25 mg= 2 mL, NEB, BID busPIRone 10 mg Tab, 15 mg= 1.5 tab(s), Oral, TID Cymbalta 60 mg Cap-DR, 60 mg= 1 cap(s), Oral, Daily Deep Sea Nasal 0.65% nasal spray, 2 spray(s), Nasal, QID Dextrose 50% Soln-IV, 40 mL, IV Push, Once, PRN Ensure Enlive Chocolate 237 mL, 237 mL, Oral, Supper gabapentin 400 mg Cap, 400 mg= 1 cap(s), Oral, TID HumaLOG Sliding Scale, 0-10 Units, SubCutaneous, QIDACHS ibuprofen 800 mg Tab, 400 mg= 0.5 tab(s), Oral, TID, PRN Lovenox 40 mg/0.4 mL SC Darshana, 40 mg= 0.4 mL, SubCutaneous, BID Milk of Magnesia 8% Susp-Oral, 30 mL, Oral, q6hr, PRN Mucinex 600 mg Tab-ER, 1200 mg= 2 tab(s), Oral, BID nystatin 100,000 units/mL Oral Susp, 376897 unit(s)= 5 mL, Oral-Swish&SPIT, QID predniSONE 10 mg Tab, 30 mg= 3 tab(s), Oral, Daily Zofran 4 mg/2 mL Injection, 4 mg= 2 mL, IV Push, q6hr, PRN Home albuterol 0.083% Inh Darshana 3 mL, 2.5 mg= 3 mL, Inhalation amLODIPine 10 mg Tab, Oral, Daily atenolol 25 mg Tab, Oral, Daily budesonide 90 mcg/inh inhalation powder, 2 puff(s), Inhalation, q4hr busPIRone, 15 mg, Oral, TID cyclobenzaprine, 10 mg, Oral, Daily, Still taking, not as prescribed: per patient takes as needed JRuby duloxetine 60 mg Cap-DR, 1 cap(s), Oral, Daily gabapentin 400 mg Cap, 400 mg= 1 cap(s), Oral, TID ibuprofen 800 mg Tab, Oral, BID Vitamin C, 1tablet, Oral, Daily, Self Directed Normal [facility] Comment on above: Result Comment: Elec tronically Signed By: LUCIA WALTON, Amrik H\.br\Date and Time Signed: 05/09/20 14:08 EST Progress Note-Physician Basic Informatio n Pulmonary following for acute hypoxic respiratory failure secondary to COVID-19 pneumonia Subjective Hospital day #10 -moved out of ICU 05/05 . Has been tolerating Oxymizer of 4L this a.m. -she is out of bed to chair tolerating increased activity. Patient has completed remdesivir, continues on Barcitinib and Dexamethasone. Having daily improvement, hemodynamically intact. Decreased cough. It feels like she is beginning to get some sleep at night. If able to wean to nasal cannula -anticipate discharge this weekend. Objective Vitals & Measurements T: 36.6 ?C (Oral) TMIN: 36.5 ?C (Oral) TMAX: 37 ?C (Axillary) HR: 70(Monitored) RR: 16 BP: 123/74 SpO2: 95% SpO2: 95% WT: 127.8 kg Intake & Output This visit (24 hour periods starting at 07:00 EST) 05/08/20 * 05/07/20 05/06/20 Total Summary Intake mL 1,948.5 1,051.5 1,043.5 Output mL -- -- 850 Fluid Balance 1,948.5 1,051.5 193.5 Intake (5) Al hydroxide/Mg hydroxide/simethicone mL 30 30 60 Ensure mL 237 -- -- Oral Intake mL 1,680 1,020 980 dexamethasone mL 1.5 1.5 1.5 furosemide mL -- -- 2 Total 1,948.5 1,051.5 1,043.5 Output (2) Urine Catheter mL -- -- 650 Urine Voided mL -- -- 200 Total -- -- 850 Counts (2) Stool Count -- 1 -- Urine Count 5 4 3 * This column has not completed the indicated time period. Physical Exam General: alert, no acute distress ENMT: oral mucosa moist, no pharyngeal erythema or exudate Cardiovascular: regular rate and rhythm, normal peripheral perfusion Respiratory: Lungs CTA, no adventitious lung sounds, respirations non labored currently with Oxymizer at 5 L Extremities: no deformity, no trauma Neurological: oriented x 4, LOC appropriate for age, CN II-XII intact, motor strength equal & normal bilaterally, sensation equal & normal bilaterally, speech normal Lab Results Glucose Lvl: 104 mg/dL (05/08/20 06:09:00) BUN: 16 mg/dL (05/08/20 06:09:00) Creatinine: 0.7 mg/dL (05/08/20 06:09:00) eGFR: >60 (05/08/20 06:09:00) eGFR AA: >60 (05/08/20 06:09:00) BUN/Creat Ratio: 23 High (05/08/20 06:09:00) Sodium Lvl: 137 mmol/L (05/08/20 06:09:00) Potassium Lvl: 4 mmol/L (05/08/20 06:09:00) Chloride: 101 mmol/L (05/08/20 06:09:00) CO2: 28 mmol/L (05/08/20 06:09:00) AGAP: 12 mEq/L (05/08/20 06:09:00) Calcium Lvl: 9 mg/dL (05/08/20 06:09:00) Alk Phos: 86 Int._Unit/L (05/08/20 06:09:00) ALT: 14 Int._Unit/L (05/08/20 06:09:00) AST: 13 Int._Unit/L (05/08/20 06:09:00) Total Protein: 7.2 gm/dL (05/08/20 06:09:00) Albumin Lvl: 3.4 gm/dL (05/08/20 06:09:00) Globulin: 3.8 gm/dL (05/08/20 06:09:00) A/G Ratio: 0.9 Low (05/08/20 06:09:00) Bili Total: 0.8 mg/dL (05/08/20 06:09:00) CRP: 1.4 mg/dL (05/08/20 06:09:00) Glucose Cap: 155 mg/dL High (05/08/20 20:29:00) POC Device SN: [id number] (05/08/20 20:29:00) POC User ID: [id number] (05/08/20 20:29:00) POC Username: [email or web address] HOUSTON (05/08/20 20:29:00) Diagnostic Results Covid positive on 04/23 [1] Images Images (04/28/2020 11:53 EST CTA Chest) * Final Report * Reason For Exam PE suspected, high prob;Other (please specify) POWERSCRIBE REPORT IMPRESSION: NO CT EVIDENCE OF PULMONARY EMBOLISM. MILDLY ENLARGED MEDIASTINAL AND RIGHT HILAR LYMPH NODES, AND IN LIGHT OF THE EXTENSIVE LUNG FINDINGS, THE LYMPH NODES ARE SUSPECTED TO BE REACTIVE IN NATURE. THE LYMPH NODES COULD BE FURTHER ASSESSED WITH A FOLLOW-UP STUDY AFTER RESOLUTION OF THE LUNG FINDINGS. INCREASED DENSITIES EXTENSIVELY SCATTERED IN BOTH LUNGS, CONSISTENT WITH INFILTRATIVE CHANGES, WITH COVID 19 PNEUMONIA MOST LIKELY. CLINICAL HISTORY: PE suspected, high prob. Shortness of breath. Covid 19 positive. COMMENT: Axial images were obtained after the rapid injection of IV contrast with narrow collimation and reconstructed at a narrow interval. Coronal and sagittal reconstructions were performed. On the PACS, images were reviewed in cine display and using MIP postprocessing. Although the concentration of contrast material within the pulmonary arterial system is not optimal, there is sufficient contrast opacification of the pulmonary arteries, and no intraluminal filling defects are noted. The thoracic aorta is normal in diameter, without evidence of aneurysm or dissection. The heart is upper limits of normal in size. No pericardial effusion is noted. There are small nonspecific bilateral axillary lymph nodes. There are multiple mediastinal lymph nodes, with many of the mediastinal lymph small,, but there are enlarged paratracheal, paracarinal, and subcarinal mediastinal lymph nodes. There also are mildly enlarged right hilar lymph nodes. Left hilar lymph nodes are small and nonspecific. There are multiple irregular areas of increased density scattered throughout both lungs, from the apices to the bases, and in both peripheral and central locations. Most of the areas of increased density are groundglass opacifications, but there are a few areas of denser airspace opacification. The bilateral lung findings are nonspecific, but in light of the clinical history, are most probably due to Covid 19 pneumonia. No pneumothorax nor pleural effusion is evident. No lung mass is delineated, but the extensive areas of airspace opacification limit evaluation for a small lung mass. Superior portions of the liver and spleen are included within the [id number]. There is diffuse fatty infiltration of the visualized portion of the liver. The visualized portion of the spleen appears within normal limits in size. All CT scans at this facility use dose modulation, iterative reconstruction, and/or weight based dosing when appropriate to reduce radiation dose to as low as reasonably achievable. [facility] FINAL REPORT Dictated: 04/28/2020 12:10 pm Dino Arce M.D. [1] [1] [2] Assessment/Plan Acute respiratory failure with hypoxia (J96.01: Acute respiratory failure with hypoxia) Secondary to COVID 19 pneumonia Diagnosed with COVID virus on Apr 24. Presented with subjective fever, SOB and exertional dyspnea, N/D + headache Presents to the ED for further evaluation - hypoxic on r/a - abg with pAo2 of 49 on R/A Initiated on Hi[employer]lo support. CT scan obtained negative for PE - however + for diffuse covid 19 penumonia Admitted to the ICU - started on appropriate regimen as follows Pro-Camelia has been assessed and is negative 05/03 patient afebrile overnight, remains on high flow oxygen 40 L / 45%--decreased from 50%. D-dimer trending up 4500, CRP downtrending 5.2, LDH downtrending 268. On exam lung sounds diminished throughout, no wheezes or crackles on my exam. Patient encouraged to utilize incentive spirometry and prone positioning. Slowly improving with current treatment 05/05 Haqving slow clinical improvement -transition to Oxymizer 05/07 continues to make clinical improvement, Oxymizer at 5 L, and increased endurance level and tolerating activity. We will make attempt next 24 hours of transition to nasal cannula Plan -Has completed remdesivir -Continue with Barcitinib -Dexamethasone has been converted to p.o. prednisone taper -Lasix 20 mg p.o. given this a.m. -Continue to monitor inflammatory markers every other day -Lovenox 40 mg - BID - high intensity DVT prophylaxis - -Continued on Oxymizer -once weaned to approximately 3 to 4 L on Oxymizer will transition to nasal cannula -Continue with mobilization and prone positioning -Reports intolerance to Albuterol and does use budesonide inhaler as outpatient. Continue with budesonide- BID Allergic asthma (J45.909: Unspecified asthma, uncomplicated) Since a child - however never assessed by Pulmonology - seasonal and exposure to perfumes provoke asthma Home regimen of Budesonide PRN -was taking 3 - 4 x daily over the past week Pneumonia due to COVID-19 virus (U07.1: COVID-19) Plan as #1 Hyponatremia (E87.1: Hypo-osmolality and hyponatremia) resolved Likely secondary to dehydration d/t bouts of diarrhea -resolved Hypertension (I10: Essential (primary) hypertension) -On amlodipine and atenolol Depression with anxiety (F41.8: Other specified anxiety disorders) Morbid obesity due to excess calories (E66.01: Morbid (severe) obesity due to excess calories) No contraindication to deep vein thrombosis (DVT) prophylaxis (Z78.9: Other specified health status) Problem List/Past Medical History Ongoing Anxiety Asthma Chronic GERD Depression with anxiety Headache Hypertension Morbid obesity due to excess calories Morbid obesity with body mass index of 50 or higher Historical No qualifying data Medications Inpatient acetaminophen 325 mg Tab, 650 mg= 2 tab(s), Oral, q6hr, PRN Al hydroxide/Mg hydroxide/simethicone 200 mg-200 mg-20 mg/5 mL oral suspension, 30 mL, Oral, q6hr, PRN albuterol HFA 90 mcg/inh MDI, 180 mcg= 2 puff(s), Inhalation, q4hr, PRN amLODIPine 10 mg Tab, 10 mg= 1 tab(s), Oral, Daily atenolol 25 mg Tab, 25 mg= 1 tab(s), Oral, Daily Ativan 0.5 mg Tab, 0.5 mg= 1 tab(s), Oral, BID, PRN baricitinib 2 mg oral tablet, 4 mg= 2 tab(s), Oral, Daily budesonide 0.25 mg/2 mL Inh Susp, 0.25 mg= 2 mL, NEB, BID busPIRone 10 mg Tab, 15 mg= 1.5 tab(s), Oral, TID Cymbalta 60 mg Cap-DR, 60 mg= 1 cap(s), Oral, Daily Deep Sea Nasal 0.65% nasal spray, 2 spray(s), Nasal, QID Dextrose 50% Soln-IV, 40 mL, IV Push, Once, PRN Ensure Enlive Chocolate 237 mL, 237 mL, Oral, Supper gabapentin 400 mg Cap, 400 mg= 1 cap(s), Oral, TID HumaLOG Sliding Scale, 0-10 Units, SubCutaneous, QIDACHS ibuprofen 800 mg Tab, 400 mg= 0.5 tab(s), Oral, TID, PRN Lovenox 40 mg/0.4 mL SC Darshana, 40 mg= 0.4 mL, SubCutaneous, BID Milk of Magnesia 8% Susp-Oral, 30 mL, Oral, q6hr, PRN Mucinex 600 mg Tab-ER, 1200 mg= 2 tab(s), Oral, BID nystatin 100,000 units/mL Oral Susp, [id number] unit(s)= 5 mL, Oral-Swish&SPIT, QID predniSONE 10 mg Tab, 30 mg= 3 tab(s), Oral, Daily Zofran 4 mg/2 mL Injection, 4 mg= 2 mL, IV Push, q6hr, PRN Home albuterol 0.083% Inh Darshana 3 mL, 2.5 mg= 3 mL, Inhalation amLODIPine 10 mg Tab, Oral, Daily atenolol 25 mg Tab, Oral, Daily budesonide 90 mcg/inh inhalation powder, 2 puff(s), Inhalation, q4hr busPIRone, 15 mg, Oral, TID cyclobenzaprine, 10 mg, Oral, Daily, Still taking, not as prescribed: per patient takes as needed JRuby duloxetine 60 mg Cap-DR, 1 cap(s), Oral, Daily gabapentin 400 mg Cap, 400 mg= 1 cap(s), Oral, TID ibuprofen 800 mg Tab, Oral, BID Vitamin C, 1tablet, Oral, Daily, Self Directed [1] Progress/SOAP Note; Peggy Steve 05/07/2020 20:31 EST [2] Progress/SOAP Note; Peggy Steve 05/07/2020 20:31 EST Normal [facility] Comment on above: Result Comment: Elec tronically Signed By: Peggy Steve\.br\Date and Time Signed: 05/08/20 23:37 EST eGFRon 05-09-2020 GFR/1.73 sq M predicted among blacks MDRD (S/P/Bld) [Vol rate/Area] mL/min/{1.73_m2} Normal >=59 [facility] Comment on above: Order Comment: Order added by Discern Expert. Result Comment: eGFR is race adjusted. AA=. Performed By: #### 1 [id number], [id number], [id number] #### [facility] [address] [place] [address] GFR/1.73 sq M predicted among non-blacks MDRD (S/P/Bld) [Vol rate/Area] mL/min/{1.73_m2} Normal >=59 [facility] Comment on above: Order Comment: Order added by Discern Expert. 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 Kidney failure is indicated at less than 15 mL/min/1.73m2. Performed By: #### 1 [id number], [id number], [id number] #### [facility] [address] [place] [address] CMPon 05-08-2020 Albumin [Mass/Vol] 0.9 g/dL Low 1.1-2.2 [facility] Comment on above: Performed By: #### 1 [id number], [id number], [id number] ####[facility] [address] [place] [address] Albumin [Mass/Vol] 3.4 g/dL Normal 3.3-5.0 [facility] Comment on above: Performed By: #### 1 [id number], [id number], [id number] ####[facility] [address] [place] [address] ALP [Catalytic activity/Vol] 86 Int._Unit/L Normal 21-98 [facility] Comment on above: Performed By: #### 1 [id number], [id number], [id number] ####[facility] [address] [place] [address] ALT No additional P-5'-P [Catalytic activity/Vol] 14 Int._Unit/L Normal 6-46 [facility] Comment on above: Performed By: #### 1 [id number], 0483802, 7742365 ####[facility] [address] [place] [address] Anion gap [Moles/Vol] 12 mmol/L Normal 6-16 [facility] Comment on above: Performed By: #### 1 [id number], [id number], [id number] ####[facility] [address] [place] [address] AST [Catalytic activity/Vol] 13 Int._Unit/L Normal 5-43 [facility] Comment on above: Performed By: #### 1 [id number], [id number], [id number] ####[facility] [address] [place] [address] Bilirubin [Mass/Vol] 0.8 mg/dL Normal 0.0-1.1 [facility] Comment on above: Performed By: #### 1 [id number], 2515661, 6733096 ####[address] [place] [address] Calcium [Mass/Vol] 9.0 mg/dL Normal 8.9-11.1 [facility] Comment on above: Performed By: #### 1 [id number], 9971717, 4007452 ####[address] [place] [address] Chloride [Moles/Vol] 101 mmol/L Normal 101-111 [facility] Comment on above: Performed By: #### 1 [id number], 1824308, 4566809 ####[facility] [address] [place] [address] CO2 [Moles/Vol] 28 mmol/L Normal 21-31 [facility] Comment on above: Performed By: #### 1 7571561, 4893648, 7509095 ####[facility] [address] [place] [address] Creatinine [Mass/Vol] 0.7 mg/dL Normal 0.5-1.3 [facility] Comment on above: Performed By: #### 1 [id number], 5151489, 8885522 ####[facility] [address] [place] [address] Globulin (S) [Mass/Vol] 3.8 g/dL Normal 1.4-4.0 F [facility] Comment on above: Performed By: #### 1 [id number], 3953881, 8860648 ####[facility] [address] [place] [address] Glucose [Mass/Vol] 104 mg/dL Normal 55-199 [facility] Comment on above: Result Comment: If t his glucose result represents a fasting glucose, interpretation should refer to the following reference range: 55-99 mg/dL Performed By: #### 1 [id number], [id number], 8446086 ####[facility] [address] [place] [address] Potassium [Moles/Vol] 4.0 mmol/L Normal 3.5-5.3 [facility] Comment on above: Performed By: #### 1 [id number], 1845157, 6998737 ####[facility] [address] [place] [address] Protein [Mass/Vol] 7.2 g/dL Normal 6.0-7.8 [facility] Comment on above: Performed By: #### 1 9523283, 3977932, 9775060 ####[facility] [address] [place] [address] Sodium [Moles/Vol] 137 mmol/L Normal 135-145 [facility] Comment on above: Performed By: #### 1 3147931, 5842724, 1901303 ####[facility] [address] [place] [address] Urea nitrogen [Mass/Vol] 16 mg/dL Normal 5-21 [facility] Comment on above: Performed By: #### 1 [id number], 5338236, 3490298 ####[facility] [address] [place] [address] Urea nitrogen/Creatinine [Mass ratio] 23 No Units High 10-20 [facility] Comment on above: Performed By: #### 1 0548976, 2942998, 8858118 ####[facility] [address] [place] [address] CRPon 05-08-2020 CRP [Mass/Vol] 1.4 mg/dL Normal <=1.9 [facility] Comment on above: Performed By: #### 1 [id number], 6984106, 3416622 ####[facility] [address] [place] [address] Capillary Glucose POCon 04-25 Glucose [Mass/Vol] 155 mg/dL High 55-99 [facility] Comment on above: Result Comment: Willy POSEY Performed By: #### 2 [id number] ####[facility] [address] [place] [address] Glucose [Mass/Vol] 141 mg/dL High 55-99 [facility] Comment on above: Performed By: #### 1 [id number], 5549055, 5989824 #### [facility] [address] [place] [address] Glucose [Mass/Vol] 157 mg/dL High 55-99 [facility] Comment on above: Result Comment: Willy POSEY Performed By: #### 2 [id number] ####[facility] [address] [place] [address] Glucose [Mass/Vol] 87 mg/dL Normal 55-99 [facility] Comment on above: Result Comment: Willy POSEY Performed By: #### 1 [id number], 2015793, [id number] #### [facility] [address] [place] [address] Interdisciplinary Note - Jose e Manageron 05-08-2020 Interdisciplinary Note - Cell [employer]pper CRM attempted to contact pt several times by phone due to Covid precautions, and line remains busy. Previously rounded with Dr. Myers and plan to stayin hospital today. Pt remains on 6L oxygen with oximzer and will continue to try to wean today. CRM following for needs. Normal [facility] Comment on above: Result Comment: Elec tronically Signed By: Lance STAHL, Isabela\.marie\Date and Time Signed: 05/08/20 11:03 EST Interdisciplinary Note - Raymond singon 05-08-2020 Interdisciplinary Note - Nursing Updated Richie pt still on Oxygen will attempt to wean continue stay at hosp today Normal [facility] Monitor Recordon 05-08-2020 Monitor Record [id number]# 1.00CD:127 Normal [facility] Monitor Record [id number]# 1.00CD:127 Normal [facility] Monitor Record [id number]# 1.00CD:127 Normal [facility] Progress Note-Physicianon Progress Note-Physician Basic Informatio n Pulmonary following for acute hypoxic respiratory failure secondary to COVID-19 pneumonia Subjective Hospital day #9 -moved out of ICU 05/05 . Has been tolerating Oxymizer of 5 L this a.m. -she is out of bed to chair tolerating working with physical therapy Patient has completed remdesivir, continues on Barcitinib and Dexamethasone. Having daily improvement, hemodynamically intact. Decreased cough. It feels like she is beginning to get some sleep at night. Objective Vitals & Measurements T: 36.5 ?C (Oral) TMIN: 36.5 ?C (Oral) TMAX: 36.8 ?C (Oral) HR: 61(Monitored) RR: 18 BP: 128/77 SpO2: 94% WT: 127.4 kg Intake & Output This visit (24 hour periods starting at 07:00 EST) 05/07/20 * 05/06/20 05/05/20 Total Summary Intake mL 1,021.5 1,043.5 1,681.5 Output mL -- 850 4,600 Fluid Balance 1,021.5 193.5 -2,918.5 Intake (4) Al hydroxide/Mg hydroxide/simethicone mL -- 60 -- Oral Intake mL 1,020 980 1,680 dexamethasone mL 1.5 1.5 1.5 furosemide mL -- 2 -- Total 1,021.5 1,043.5 1,681.5 Output (2) Urine Catheter mL -- 650 3,800 Urine Voided mL -- 200 800 Total -- 850 4,600 Counts (2) Stool Count 1 -- 1 Urine Count 4 3 -- * This column has not completed the indicated time period. Physical Exam General: alert, no acute distress ENMT: oral mucosa moist, no pharyngeal erythema or exudate Cardiovascular: regular rate and rhythm, normal peripheral perfusion Respiratory: Lungs CTA, no adventitious lung sounds, respirations non labored currently with Oxymizer at 5 L Extremities: no deformity, no trauma Neurological: oriented x 4, LOC appropriate for age, CN II-XII intact, motor strength equal & normal bilaterally, sensation equal & normal bilaterally, speech normal Lab Results WBC: 11.7 E9/L High (05/07/20 06:27:00) RBC: 4.4 E12/L (05/07/20 06:27:00) Hgb: 11.3 gm/dL Low (05/07/20:27:00) Hct: 34.6 % (05/07/20:27:00) MCV: 77.8 fL Low (05/07/20 06:27:00) MCH: 25.4 pg Low (05/07/20:27:00) MCHC: 32.6 gm/dL (05/07/20:27:00) RDW: 16.1 % High (05/07/20:27:00) Platelet: 587 E9/L High (05/07/20::00) MPV: 7 fL (05/07/20:27:00) Neutro Auto: 75.5 % High (05/07/20 06:27:00) Lymph Auto: 15.2 % (05/07/20 06:27:00) [place] Auto: 8.8 % (05/07/20 06:27:00) Eos Auto: 0.3 % (05/07/20 06:27:00) Basophil Auto: 0.2 % (05/07/20 06:27:00) Neutro Absolute: 8.9 E9/L High (05/07/20:27:00) Lymph Absolute: 1.8 E9/L (05/07/20 06:27:00) [place] Absolute: 1 E9/L (05/07/20:27:00) Eos Absolute: 0 E9/L (05/07/20:27:00) Basophil Absolute: 0 E9/L (05/07/20:27:00) D-Dimer: 2259 ng/mL Critical (05/07/20:27:00) Glucose Lvl: 122 mg/dL (05/07/20:27:00) BUN: 19 mg/dL (05/07/20 06:27:00) Creatinine: 0.4 mg/dL Low (05/07/20 06:27:00) eGFR: >60 (05/07/20:27:00) eGFR AA: >60 (01/13/21 06:27:00) BUN/Creat Ratio: 48 High (05/07/20 06:27:00) Sodium Lvl: 135 mmol/L (05/07/20 06:27:00) Potassium Lvl: 3.9 mmol/L (05/07/20 06:27:00) Chloride: 100 mmol/L Low (05/07/20 06:27:00) CO2: 28 mmol/L (05/07/20 06:27:00) AGAP: 11 mEq/L (05/07/20 06:27:00) Calcium Lvl: 8.8 mg/dL Low (05/07/20 06:27:00) Alk Phos: 90 Int._Unit/L (05/07/20 06:27:00) ALT: 16 Int._Unit/L (05/07/20 06:27:00) AST: 16 Int._Unit/L (05/07/20 06:27:00) Total Protein: 6.9 gm/dL (05/07/20 06:27:00) Albumin Lvl: 3.2 gm/dL Low (05/07/20 06:27:00) Globulin: 3.7 gm/dL (05/07/20 06:27:00) A/G Ratio: 0.9 Low (05/07/20 06:27:00) Bili Total: 0.6 mg/dL (05/07/20 06:27:00) Magnesium: 2.3 mg/dL (05/07/20 06:27:00) CRP: 2.9 mg/dL High (05/07/20 06:27:00) LDH: 177 Int._Unit/L (05/07/20 06:27:00) Glucose Cap: 147 mg/dL High (05/07/20 20:03:00) POC Device SN: [id number] (05/07/20 20:03:00) POC User ID: [id number] (05/07/20 20:03:00) POC Username: JACOB HOUSTON (05/07/20 20:03:00) Diagnostic Results Diagnostic Results Covid positive on 04/23 Images (04/28/2020 11:53 EST CTA Chest) * Final Report * Reason For Exam PE suspected, high prob;Other (please specify) POWERSCRIBE REPORT IMPRESSION: NO CT EVIDENCE OF PULMONARY EMBOLISM. MILDLY ENLARGED MEDIASTINAL AND RIGHT HILAR LYMPH NODES, AND IN LIGHT OF THE EXTENSIVE LUNG FINDINGS, THE LYMPH NODES ARE SUSPECTED TO BE REACTIVE IN NATURE. THE LYMPH NODES COULD BE FURTHER ASSESSED WITH A FOLLOW-UP STUDY AFTER RESOLUTION OF THE LUNG FINDINGS. INCREASED DENSITIES EXTENSIVELY SCATTERED IN BOTH LUNGS, CONSISTENT WITH INFILTRATIVE CHANGES, WITH COVID 19 PNEUMONIA MOST LIKELY. CLINICAL HISTORY: PE suspected, high prob. Shortness of breath. Covid 19 positive. COMMENT: Axial images were obtained after the rapid injection of IV contrast with narrow collimation and reconstructed at a narrow interval. Coronal and sagittal reconstructions were performed. On the PACS, images were reviewed in cine display and using MIP postprocessing. Although the concentration of contrast material within the pulmonary arterial system is not optimal, there is sufficient contrast opacification of the pulmonary arteries, and no intraluminal filling defects are noted. The thoracic aorta is normal in diameter, without evidence of aneurysm or dissection. The heart is upper limits of normal in size. No pericardial effusion is noted. There are small nonspecific bilateral axillary lymph nodes. There are multiple mediastinal lymph nodes, with many of the mediastinal lymph small,, but there are enlarged paratracheal, paracarinal, and subcarinal mediastinal lymph nodes. There also are mildly enlarged right hilar lymph nodes. Left hilar lymph nodes are small and nonspecific. There are multiple irregular areas of increased density scattered throughout both lungs, from the apices to the bases, and in both peripheral and central locations. Most of the areas of increased density are groundglass opacifications, but there are a few areas of denser airspace opacification. The bilateral lung findings are nonspecific, but in light of the clinical history, are most probably due to Covid 19 pneumonia. No pneumothorax nor pleural effusion is evident. No lung mass is delineated, but the extensive areas of airspace opacification limit evaluation for a small lung mass. Superior portions of the liver and spleen are included within the sxpyc-aj-ozhi. There is diffuse fatty infiltration of the visualized portion of the liver. The visualized portion of the spleen appears within normal limits in size. All CT scans at this facility use dose modulation, iterative reconstruction, and/or weight based dosing when appropriate to reduce radiation dose to as low as reasonably achievable. [facility] FINAL REPORT Dictated: 04/28/2020 12:10 pm Dino Arce M.D. [1] [1] Assessment/Plan Acute respiratory failure with hypoxia (J96.01: Acute respiratory failure with hypoxia) Secondary to COVID 19 pneumonia Diagnosed with COVID virus on Apr 24. Presented with subjective fever, SOB and exertional dyspnea, N/D + headache Presents to the ED for further evaluation - hypoxic on r/a - abg with pAo2 of 49 on R/A Initiated on HiFlo support. CT scan obtained negative for PE - however + for diffuse covid 19 penumonia Admitted to the ICU - started on appropriate regimen as follows Pro-Camelia has been assessed and is negative 05/03 patient afebrile overnight, remains on high flow oxygen 40 L / 45%--decreased from 50%. D-dimer trending up 4500, CRP downtrending 5.2, LDH downtrending 268. On exam lung sounds diminished throughout, no wheezes or crackles on my exam. Patient encouraged to utilize incentive spirometry and prone positioning. Slowly improving with current treatment 05/05 Haqving slow clinical improvement -transition to Oxymizer 05/07 continues to make clinical improvement, Oxymizer at 5 L, and increased endurance level and tolerating activity. We will make attempt next 24 hours of transition to nasal cannula Plan -Has completed remdesivir -Continue with Dexamethasone + Barcitinib -Continue to monitor inflammatory markers LFTs and renal indices, -Lovenox 40 mg - BID - high intensity DVT prophylaxis - continue to trend D-dimer (4676) -Continued on Oxymizer -once weaned to approximately 3 to 4 L on Oxymizer will transition to nasal cannula -Continue with mobilization and prone positioning -Reports intolerance to Albuterol and does use budesonide inhaler as outpatient. Continue with budesonide- BID Allergic asthma (J45.909: Unspecified asthma, uncomplicated) Since a child - however never assessed by Pulmonology - seasonal and exposure to perfumes provoke asthma Home regimen of Budesonide PRN -was taking 3 - 4 x daily over the past week Pneumonia due to COVID-19 virus (U07.1: COVID-19) Plan as #1 Hyponatremia (E87.1: Hypo-osmolality and hyponatremia) resolved Likely secondary to dehydration d/t bouts of diarrhea -resolved Hypertension (I10: Essential (primary) hypertension) -On amlodipine and atenolol Depression with anxiety (F41.8: Other specified anxiety disorders) Morbid obesity due to excess calories (E66.01: Morbid (severe) obesity due to excess calories) No contraindication to deep vein thrombosis (DVT) prophylaxis (Z78.9: Other specified health status) Problem List/Past Medical History Ongoing Anxiety Asthma Chronic GERD Depression with anxiety Headache Hypertension Morbid obesity due to excess calories Morbid obesity with body mass index of 50 or higher Historical No qualifying data Medications Inpatient acetaminophen 325 mg Tab, 650 mg= 2 tab(s), Oral, q6hr, PRN Al hydroxide/Mg hydroxide/simethicone 200 mg-200 mg-20 mg/5 mL oral suspension, 30 mL, Oral, q6hr, PRN albuterol HFA 90 mcg/inh MDI, 180 mcg= 2 puff(s), Inhalation, q4hr, PRN amLODIPine 10 mg Tab, 10 mg= 1 tab(s), Oral, Daily atenolol 25 mg Tab, 25 mg= 1 tab(s), Oral, Daily Ativan 0.5 mg Tab, 0.5 mg= 1 tab(s), Oral, BID, PRN baricitinib 2 mg oral tablet, 4 mg= 2 tab(s), Oral, Daily budesonide 0.25 mg/2 mL Inh Susp, 0.25 mg= 2 mL, NEB, BID busPIRone 10 mg Tab, 15 mg= 1.5 tab(s), Oral, TID Cymbalta 60 mg Cap-DR, 60 mg= 1 cap(s), Oral, Daily Deep Sea Nasal 0.65% nasal spray, 2 spray(s), Nasal, QID dexamethasone 4 mg/mL Inj 1 mL, 6 mg= 1.5 mL, IV Push, Daily Dextrose 50% Soln-IV, 40 mL, IV Push, Once, PRN gabapentin 400 mg Cap, 400 mg= 1 cap(s), Oral, TID HumaLOG Sliding Scale, 0-10 Units, SubCutaneous, QIDACHS ibuprofen 800 mg Tab, 400 mg= 0.5 tab(s), Oral, TID, PRN Lovenox 40 mg/0.4 mL SC Darshana, 40 mg= 0.4 mL, SubCutaneous, BID Milk of Magnesia 8% Susp-Oral, 30 mL, Oral, q6hr, PRN Mucinex 600 mg Tab-ER, 1200 mg= 2 tab(s), Oral, BID Zofran 4 mg/2 mL Injection, 4 mg= 2 mL, IV Push, q6hr, PRN Home albuterol 0.083% Inh Darshana 3 mL, 2.5 mg= 3 mL, Inhalation amLODIPine 10 mg Tab, Oral, Daily atenolol 25 mg Tab, Oral, Daily budesonide 90 mcg/inh inhalation powder, 2 puff(s), Inhalation, q4hr busPIRone, 15 mg, Oral, TID cyclobenzaprine, 10 mg, Oral, Daily, Still taking, not as prescribed: per patient takes as needed JRuby duloxetine 60 mg Cap-DR, 1 cap(s), Oral, Daily gabapentin 400 mg Cap, 400 mg= 1 cap(s), Oral, TID ibuprofen 800 mg Tab, Oral, BID Vitamin C, 1tablet, Oral, Daily, Self Directed [1] Progress/SOAP Note; Peggy Steve 05/05/2020 09:50 EST I have seen and examined the patient with the nurse practitioner and agree with the documentation and plan. [facility] Comment on above: Result Comment: Elec tronically Signed By: Taye WALTON, Abner Philip\.br\Date and Time Signed: 05/08/20 14:59 EST Progress Note-Physician Assessment/Plan Patient is a 40-year-old lady with a past medical history of asthma, hypertension, GERD, depression with anxiety, morbid obesity?presented to the ED on 04/28 with shortness of breath and cough? being treated for COVID-19 pneumonia, hypoxia 1. Acute respiratory failure with hypoxia (J96.01: Acute respiratory failure with hypoxia) -2/2 bilateral COVID-19 pneumonia. Moved out of ICU 05/05. Improving slowly. -On dexamethasone, baricitinib?day 11 -Completed remdesivir x 5 days -Due to elevated D-dimer?c/w Lovenox 40 mg BID- higher dose DVT prophylaxis -On budesonide nebs, albuterol as needed. c/w mucolytics -Monitor inflammatory markers -On Oxymizer at 5L this AM- c/w weaning as tolerated ?appreciate and agree with pulmonology input. -I-S, out of bed to chair with meals -Maintain Airborne isolation precautions. -Lasix intermittently as needed. 2. Allergic asthma (J45.909: Unspecified asthma, uncomplicated) -Stable, not in acute exacerbation. Bronchodilators and supplemental oxygen -Nasal decongestants -nystatin swish n swallow for oral thrush. 3. Pneumonia due to COVID-19 virus (U07.1: COVID-19) -Refer to #1 4. Hyponatremia (E87.1: Hypo-osmolality and hyponatremia) -Improved with IV fluid hydration. 5. Hypertension (I10: Essential (primary) hypertension) -Continue atenolol, amlodipine 6. Chronic GERD (K21.9: Gastro-esophageal reflux disease without esophagitis) -Continue pantoprazole 7. Depression with anxiety (F41.8: Other specified anxiety disorders) -Continue duloxetine, buspirone, gabapentin. Ativan as needed 8. Morbid obesity due to excess calories (E66.01: Morbid (severe) obesity due to excess calories) -BMI 53. Lifestyle modification changes as outpatient 9. No contraindication to deep vein thrombosis (DVT) prophylaxis (Z78.9: Other specified health status) -SCDs, Lovenox Plan discussed in detail patient, nursing staff, CM. This report was transcribed using voice recognition software. Every effort was made to ensure accuracy, however, inadvertently computerized high school learning support teacher mistakes may be present. Dr. Amrik Myers Hospitalist Orders: C-Reactive Protein Comprehensive Metabolic Panel eGFR Extra Blue Tube Extra Lav Tube Extra SST Tube Subjective Patient seen and examined bedside this morning. States she feels weak today. Shortness of breath about the same as yesterday. Still has cough. Complains of thrush on her tongue. Denies fevers, chills, abdominal pain, vomiting, diarrhea, chest pain. Appetite is good. Review of Systems neg except HPI Objective Vitals & Measurements T: 36.9 ?C (Oral) TMIN: 36.5 ?C (Oral) TMAX: 36.9 ?C (Oral) HR: 62(Monitored) RR: 18 BP: 124/69 SpO2: 92% WT: 127.8 kg Intake & Output This visit (24 hour periods starting at 07:00 EST) 05/08/20 * 05/07/20 05/06/20 Total Summary Intake mL 241.5 1,051.5 1,043.5 Output mL -- -- 850 Fluid Balance 241.5 1,051.5 193.5 Intake (4) Al hydroxide/Mg hydroxide/simethicone mL -- 30 60 Oral Intake mL 240 1,020 980 dexamethasone mL 1.5 1.5 1.5 furosemide mL -- -- 2 Total 241.5 1,051.5 1,043.5 Output (2) Urine Catheter mL -- -- 650 Urine Voided mL -- -- 200 Total -- -- 850 Counts (2) Stool Count -- 1 -- Urine Count -- 4 3 * This column has not completed the indicated time period. Physical Exam General: Alert and oriented x 3, No acute distress. Eye: Pupils are equal, round and reactive to light. HENT: Normocephalic. Neck: Supple. Respiratory: Normal respiratory effort, mild ronchi bilaterally. Cardiovascular: Regular rate and rhythm, no murmurs, normal S1,S2. Gastrointestinal: Soft, Non-tender, Non-distended, Normo-active bowel sounds. Musculoskeletal Normal range of motion. Neurologic: Normal sensory, Normal motor function. Cognition and Speech: Speech clear and coherent. Psychiatric: Cooperative, Appropriate mood & affect. Integumentary: Warm, [place]. Lab Results Glucose Lvl: 104 mg/dL (05/08/20 06:09:00) BUN: 16 mg/dL (05/08/20 06:09:00) Creatinine: 0.7 mg/dL (05/08/20 06:09:00) eGFR: >60 (05/08/20 06:09:00) eGFR AA: >60 (05/08/20 06:09:00) BUN/Creat Ratio: 23 High (05/08/20 06:09:00) Sodium Lvl: 137 mmol/L (05/08/20 06:09:00) Potassium Lvl: 4 mmol/L (05/08/20 06:09:00) Chloride: 101 mmol/L (05/08/20 06:09:00) CO2: 28 mmol/L (05/08/20 06:09:00) AGAP: 12 mEq/L (05/08/20 06:09:00) Calcium Lvl: 9 mg/dL (05/08/20 06:09:00) Alk Phos: 86 Int._Unit/L (05/08/20 06:09:00) ALT: 14 Int._Unit/L (05/08/20 06:09:00) AST: 13 Int._Unit/L (05/08/20 06:09:00) Total Protein: 7.2 gm/dL (05/08/20 06:09:00) Albumin Lvl: 3.4 gm/dL (05/08/20 06:09:00) Globulin: 3.8 gm/dL (05/08/20 06:09:00) A/G Ratio: 0.9 Low (05/08/20 06:09:00) Bili Total: 0.8 mg/dL (05/08/20 06:09:00) CRP: 1.4 mg/dL (05/08/20 06:09:00) Glucose Cap: 87 mg/dL (05/08/20 08:12:00) POC Device SN: [id number] (05/08/20 08:12:00) POC User ID: [id number] (05/08/20 08:12:00) POC Username: [email or web address] HELLER (05/08/20 08:12:00) Problem List/Past Medical History Ongoing Anxiety Asthma Chronic GERD Depression with anxiety Headache Hypertension Morbid obesity due to excess calories Morbid obesity with body mass index of 50 or higher Historical No qualifying data Medications Inpatient acetaminophen 325 mg Tab, 650 mg= 2 tab(s), Oral, q6hr, PRN Al hydroxide/Mg hydroxide/simethicone 200 mg-200 mg-20 mg/5 mL oral suspension, 30 mL, Oral, q6hr, PRN albuterol HFA 90 mcg/inh MDI, 180 mcg= 2 puff(s), Inhalation, q4hr, PRN amLODIPine 10 mg Tab, 10 mg= 1 tab(s), Oral, Daily atenolol 25 mg Tab, 25 mg= 1 tab(s), Oral, Daily Ativan 0.5 mg Tab, 0.5 mg= 1 tab(s), Oral, BID, PRN baricitinib 2 mg oral tablet, 4 mg= 2 tab(s), Oral, Daily budesonide 0.25 mg/2 mL Inh Susp, 0.25 mg= 2 mL, NEB, BID busPIRone 10 mg Tab, 15 mg= 1.5 tab(s), Oral, TID Cymbalta 60 mg Cap-DR, 60 mg= 1 cap(s), Oral, Daily Deep Sea Nasal 0.65% nasal spray, 2 spray(s), Nasal, QID dexamethasone 4 mg/mL Inj 1 mL, 6 mg= 1.5 mL, IV Push, Daily Dextrose 50% Soln-IV, 40 mL, IV Push, Once, PRN gabapentin 400 mg Cap, 400 mg= 1 cap(s), Oral, TID HumaLOG Sliding Scale, 0-10 Units, SubCutaneous, QIDACHS ibuprofen 800 mg Tab, 400 mg= 0.5 tab(s), Oral, TID, PRN Lovenox 40 mg/0.4 mL SC Darshana, 40 mg= 0.4 mL, SubCutaneous, BID Milk of Magnesia 8% Susp-Oral, 30 mL, Oral, q6hr, PRN Mucinex 600 mg Tab-ER, 1200 mg= 2 tab(s), Oral, BID nystatin 100,000 units/mL Oral Susp, 843739 unit(s)= 5 mL, Oral-Swish&SPIT, QID Zofran 4 mg/2 mL Injection, 4 mg= 2 mL, IV Push, q6hr, PRN Home albuterol 0.083% Inh Darshana 3 mL, 2.5 mg= 3 mL, Inhalation amLODIPine 10 mg Tab, Oral, Daily atenolol 25 mg Tab, Oral, Daily budesonide 90 mcg/inh inhalation powder, 2 puff(s), Inhalation, q4hr busPIRone, 15 mg, Oral, TID cyclobenzaprine, 10 mg, Oral, Daily, Still taking, not as prescribed: per patient takes as needed JRuby duloxetine 60 mg Cap-DR, 1 cap(s), Oral, Daily gabapentin 400 mg Cap, 400 mg= 1 cap(s), Oral, TID ibuprofen 800 mg Tab, Oral, BID Vitamin C, 1tablet, Oral, Daily, Self Directed Normal [facility] Comment on above: Result Comment: Elec tronically Signed By: LUCIA WALTON, Amrik H\.br\Date and Time Signed: 05/08/20 11:30 EST eGFRon 05-08-2020 GFR/1.73 sq M predicted among blacks MDRD (S/P/Bld) [Vol rate/Area] mL/min/{1.73_m2} Normal >=59 [facility] Comment on above: Order Comment: Order added by Discern Expert. Result Comment: eGFR is race adjusted. AA=. Performed By: #### 1 [id number], 1287811, 1168974 ####[facility] [address] [place] [address] GFR/1.73 sq M predicted among non-blacks MDRD (S/P/Bld) [Vol rate/Area] mL/min/{1.73_m2} Normal >=59 [facility] Comment on above: Order Comment: Order added by Kala Expert. 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 Kidney failure is indicated at less than 15 mL/min/1.73m2. Performed By: #### 1 4466919, 8225550, 7152357 ####[facility] [address] [place] [address] Auto Diffon 05-07-2020 Basophils/100 WBC (Bld) 0.2 % Normal 0.0-2.0 F [facility] Comment on above: Order Comment: Order Added by Discern Expert. Performed By: #### 2 646764, 24459296, 4446171, 9448167, 9666696, 1823604, 8291248, 5664529 ####[facility] [address] [place] [address] Basophils/Leukocytes Auto (Bld) [Pure # fraction] 0.0 E9/L Normal 0.0-0.2 [facility] Comment on above: Order Comment: Order Added by Discern Expert. Performed By: #### 2 400583, 22742622, 3025405, 2035828, 6548414, 7318207, 3705208, 4133112 ####[facility] [address] [place] [address] Eosinophils/100 WBC (Bld) 0.3 % Normal 0.0-8.0 [facility] Comment on above: Order Comment: Order Added by Discern Expert. Performed By: #### 2 762285, 59622629, 4034773, 6056796, 3645436, 6090932, 8014155, 1612864 ####[facility] [address] [place] [address] Eosinophils/Leukocytes Auto (Bld) [Pure # fraction] 0.0 E9/L Normal 0.0-0.5 [facility] Comment on above: Order Comment: Order Added by Discern Expert. Performed By: #### 2 430514, 03145065, 0301423, 5089501, 6645971, 3678676, 8538622, 6102309 ####[address] [address] Lymphocytes/100 WBC (Bld) 15.2 % Normal 14.0-50.0 [facility] Comment on above: Order Comment: Order Added by Kala Expert. Performed By: #### 2 311614, 18153310, 0915086, 7720924, 6134199, 3225235, 9560481, 3091322 ####[address] [address] Lymphocytes/Leukocytes Auto (Bld) [Pure # fraction] 1.8 E9/L Normal 1.0-4.0 [facility] Comment on above: Order Comment: Order Added by Kala Expert. Performed By: #### 2 478194, 34623640, 1855746, 5168559, 8258426, 0180172, 1331900, 7129660 ####[facility] [address] [place] [address] Monocytes/100 WBC (Bld) 8.8 % Normal 4.0-14.0 [facility] Comment on above: Order Comment: Order Added by Kala Expert. Performed By: #### 2 082457, 26409189, 4355761, 8825961, 3637948, 5572064, 4032564, 4654671 ####[facility] [address] [place] [address] Monocytes/Leukocytes Auto (Bld) [Pure # fraction] 1.0 E9/L Normal 0.2-1.0 [facility] Comment on above: Order Comment: Order Added by Discern Expert. Performed By: #### 2 980884, 87132562, 1773551, 7581438, 3325946, 4248528, 9862066, 5359842 ####[facility] [address] [place] [address] Neutrophils/100 WBC (Bld) 75.5 % High 36.0-75.0 [facility] Comment on above: Order Comment: Order Added by Discern Expert. Performed By: #### 2 604210, 33700593, 1201245, 3711090, 9898623, 8910068, 7159652, 9725729 ####[address] [address] Neutrophils/Leukocytes Auto (Bld) [Pure # fraction] 8.9 E9/L High 2.0-7.5 [facility] Comment on above: Order Comment: Order Added by Discern Expert. Performed By: #### 2 014538, 55181993, 2800026, 2669851, 9331638, 1341340, 1291574, 0491176 ####[address] [place] [address] CBC w/ Auto Diffon Erythrocyte distribution width (RBC) [Ratio] 16.1 % High 10.9-14.2 [facility] Comment on above: Performed By: #### 2 331284, 65031806, 8305317, 4407711, 7150481, 6896919, 9903198, 1811707 ####[facility] [address] [place] [address] Hematocrit (Bld) [Volume fraction] 34.6 % Normal 34.0-46.0 [facility] Comment on above: Performed By: #### 2 790653, 74662425, 0622590, 5759185, 9779746, 9235960, 1401432, 4393107 ####[facility] [address] [place] [address] Hemoglobin (Bld) [Mass/Vol] 11.3 g/dL Low 12.0-16.0 [facility] Comment on above: Performed By: #### 2 249269, 84398341, 1523758, 3215677, 8934884, 8785588, 3380841, 8255161 ####[facility] [address] [place] [address] MCH (RBC) [Entitic mass] 25.4 pg Low 27.0-34.0 [facility] Comment on above: Performed By: #### 2 639373, 96120523, 9429849, 0644322, 9077334, 3219406, 6820527, 9119703 ####[facility] [address] [place] [address] MCHC (RBC) [Mass/Vol] 32.6 g/dL Normal 31.4-36.0 [facility] Comment on above: Performed By: #### 2 996908, 77474649, 8795035, 9176851, 3183143, 8669151, 1052321, 2150181 ####[facility] [address] [place] [address] MCV (RBC) [Entitic vol] 77.8 fL Low 80.0-100.0 F [facility] Comment on above: Performed By: #### 2 304912, 17178572, 3359697, 5276618, 0917814, 4494963, 2953984, 7161491 ####[facility] [address] [place] [address] Platelet mean volume (Bld) [Entitic vol] 7.0 fL Normal 6.4-10.8 [facility] Comment on above: Performed By: #### 2 001020, 28961891, 1637940, 1534808, 8079055, 5167789, 8613921, 6599598 ####[facility] [address] [place] [address] Platelets (Bld) [#/Vol] 587.0 E9/L High 150.0-500.0 [facility] Comment on above: Performed By: #### 2 890110, 70609197, 5295083, 6295554, 2910251, 2524549, 8328743, 9775273 ####[facility] [address] [place] [address] RBC (Bld) [#/Vol] 4.4 E12/L Normal 4.3-5.9 [facility] Comment on above: Performed By: #### 2 148544, 22757450, 9529354, 6012187, 6176059, 0527921, 4177346, 4320409 ####[address] [address] WBC corrected for nucl RBC Auto (Bld) [#/Vol] 11.7 E9/L High 4.0-11.0 [facility] Comment on above: Performed By: #### 2 609347, 42127926, 3218177, 1320786, 3319783, 2740026, 0558195, 2448842 ####[facility] [address] [place] [address] CMPon 05-07-2020 Albumin [Mass/Vol] 0.9 g/dL Low 1.1-2.2 [facility] Comment on above: Performed By: #### 2 269937, 70882743, 0770912, 2863000, 0005005, 9371807, 9618027, 3830754 ####[facility] [address] [place] [address] Albumin [Mass/Vol] 3.2 g/dL Low 3.3-5.0 [facility] Comment on above: Performed By: #### 2 900691, 51563758, 3945277, 2143541, 2659315, 6369678, 2966153, 7085906 ####[address] [address] ALP [Catalytic activity/Vol] 90 Int._Unit/L Normal 21-98 [facility] Comment on above: Performed By: #### 2 034215, 96708288, 1174178, 4723879, 0614447, 5216238, 2926160, 1129801 ####[facility] [address] [place] [address] ALT No additional P-5'-P [Catalytic activity/Vol] 16 Int._Unit/L Normal 6-46 [facility] Comment on above: Performed By: #### 2 788130, 98271855, 3463971, 9843670, 8798167, 7142807, 0221098, 1535751 ####[facility] [address] [place] [address] Anion gap [Moles/Vol] 11 mmol/L Normal 6-16 [facility] Comment on above: Performed By: #### 2 154631, 30400748, 0575012, 0322735, 3139652, 9140903, 5140313, 9077479 ####[facility] [address] [place] [address] AST [Catalytic activity/Vol] 16 Int._Unit/L Normal 5-43 [facility] Comment on above: Performed By: #### 2 358691, 64979190, 0406990, 6801889, 1634877, 0921974, 2011649, 6592096 ####[facility] [address] [place] [address] Bilirubin [Mass/Vol] 0.6 mg/dL Normal 0.0-1.1 [facility] Comment on above: Performed By: #### 2 322437, 18514333, 9107620, 1329377, 7610245, 4669165, 5231077, 5537588 ####[facility] [address] [place] [address] Calcium [Mass/Vol] 8.8 mg/dL Low 8.9-11.1 [facility] Comment on above: Performed By: #### 2 189192, 27988472, 3281616, 0468113, 0195210, 5299179, 8100831, 5195972 ####[facility] [address] [place] [address] Chloride [Moles/Vol] 100 mmol/L Low 101-[address] [facility] Comment on above: Performed By: #### 2 083875, 62874790, 0316375, 8564832, 8522882, 8626760, 8831993, 5392402 ####[facility] [address] [place] [address] CO2 [Moles/Vol] 28 mmol/L Normal 21-31 [facility] Comment on above: Performed By: #### 2 723749, 84680336, 1517586, 9304600, 8252417, 6151822, 2911143, 9223637 ####[facility] [address] [place] [address] Creatinine [Mass/Vol] 0.4 mg/dL Low 0.5-1.3 [facility] Comment on above: Performed By: #### 2 639244, 38920880, 2594757, 2944757, 8423336, 8741104, 9081596, 1498320 ####[facility] [address] [place] [address] Globulin (S) [Mass/Vol] 3.7 g/dL Normal 1.4-4.0 F [facility] Comment on above: Performed By: #### 2 607950, 12234314, 5441999, 6792621, 0184792, 1050595, 1082178, 5239661 ####[facility] [address] [place] [address] Glucose [Mass/Vol] 122 mg/dL Normal 55-199 [facility] Comment on above: Result Comment: If t his glucose result represents a fasting glucose, interpretation should refer to the following reference range: 55-99 mg/dL Performed By: #### 2 272561, 03568212, 2497280, 3333150, 4159488, 4461707, 3545552, 0495296 ####[facility] [address] [place] [address] Potassium [Moles/Vol] 3.9 mmol/L Normal 3.5-5.3 [facility] Comment on above: Performed By: #### 2 624404, 90792784, 8170714, 7851311, 3668291, 4810525, 5364735, 2504768 ####[facility] [address] [place] [address] Protein [Mass/Vol] 6.9 g/dL Normal 6.0-7.8 [facility] Comment on above: Performed By: #### 2 438918, 74898984, 9455773, 3817436, 0368757, 9316798, 4222198, 6961467 ####[facility] [address] [place] [address] Sodium [Moles/Vol] 135 mmol/L Normal 135-145 [facility] Comment on above: Performed By: #### 2 664731, 64922959, 3952261, 9871453, 5291074, 1125869, 1108783, 9178846 ####[facility] [address] [place] [address] Urea nitrogen [Mass/Vol] 19 mg/dL Normal 5-21 [facility] Comment on above: Performed By: #### 2 924124, 52115870, 0515864, 9017050, 8427834, 1479178, 2656650, 6365709 ####[facility] [address] [place] [address] Urea nitrogen/Creatinine [Mass ratio] 48 No Units High 10-20 [facility] Comment on above: Performed By: #### 2 770069, 67447484, 5016676, 8939498, 9241906, 6831117, 9910812, 8275586 ####[facility] [address] [place] [address] CRPon 05-07-2020 CRP [Mass/Vol] 2.9 mg/dL High <=1.9 [facility] Comment on above: Performed By: #### 2 563872, 43125800, 0746932, 6188780, 1382753, 8255314, 0967882, 6158282 ####[facility] [address] [place] [address] Capillary Glucose POCon 04-25 Glucose [Mass/Vol] 147 mg/dL High 55-99 [facility] Comment on above: Result Comment: Willy POSEY Performed By: #### 1 6687223, 1708045, 3922606 #### [facility] [address] [place] [address] Glucose [Mass/Vol] 153 mg/dL High 55-99 [facility] Comment on above: Result Comment: Willy POSEY Performed By: #### 2 46956715 ####[facility] [address] [place] [address] Glucose [Mass/Vol] 188 mg/dL High 55-99 [facility] Comment on above: Result Comment: Willy POSEY Performed By: #### 2 67769895 ####[facility] [address] [place] [address] Glucose [Mass/Vol] 98 mg/dL Normal 55-99 [facility] Comment on above: Result Comment: Willy POSEY Performed By: #### 2 47665952 ####[facility] [address] [place] [address] D-Dimeron 05-07-2020 Fibrin D-dimer FEU (PPP) [Mass/Vol] 2259 ng/mL Abnormal 215-500 [facility] Comment on above: Result Comment: Resu lts Called To Maira Conley By MOSES And Read Back For Confirmation On 05/07/2020 07:43:11 EST. Results Verified By Repeat Analysis This D-Dimer assay may be used in conjunction with a non-high clinical pretest probability assessment to exclude deep-vein thrombosis(DVT). For exclusion of venous thrombosis or pulmonary embolism the analyte D-Dimer should not be used as an aid in patients with: Therapeutic dose anticoagulant therapy for >24 hours Fibrinolytic therapy within previous 7 days Trauma or surgery within previous 4 weeks Disseminated malignacies Aortic aneurysm Sepsis, severe infections, pneumonia, severe skin infections Liver cirrhosis Performed By: #### 2 970597, 99501644, 4010628, 2471046, 3205637, 7391837, 5594026, 4471062 ####[facility] [address] [place] [address] Interdisciplinary Note - Jose e Manageron 05-07-2020 Interdisciplinary Note - Cell Stripper CRM contacted pt by phone due to Covid precautions. Previously rounded with Dr. Myers. Aware of plan to stay in hospital today and continue to wean oxygen from 7L with oximizer. Aware anticipated DC in few days and discussed will likely need oxgygen at Dc. Pt denies concerns or DC needs at this time, declines need to call and update family today. CRM following. Normal [facility] Comment on above: Result Comment: Elec tronically Signed By: Lance STAHL, Isabela\.marie\Date and Time Signed: 05/07/20 12:23 EST LDHon 05-07-2020 LDH [Catalytic activity/Vol] 177 Int._Unit/L Normal 93-218 [facility] Comment on above: Performed By: #### 2 167111, 61417130, 5710888, 2275710, 0745266, 4152245, 0959879, 3473785 ####[facility] [address] [place] [address] Magnesiumon 05-07-2020 Magnesium [Mass/Vol] 2.3 mg/dL Normal 1.3-2.4 [facility] Comment on above: Performed By: #### 2 170124, 80688914, 0673763, 5690719, 2373059, 6991885, 6919257, 8864362 ####[facility] [address] [place] [address] Monitor Recordon 05-07-2020 Monitor Record [id number]# 1.00CD:127 Normal [facility] Monitor Record [id number]# 1.00CD:127 Normal [facility] Monitor Record [id number]# 1.00CD:127 Normal [facility] Monitor Record [id number]# 1.00CD:127 Normal [facility] Progress Note-Physicianon Progress Note-Physician Assessment/Plan Patient is a 40-year-old lady with a past medical history of asthma, hypertension, GERD, depression with anxiety, morbid obesity?presented to the ED on 04/28 with shortness of breath and cough? being treated for COVID-19 pneumonia, hypoxia 1. Acute respiratory failure with hypoxia (J96.01: Acute respiratory failure with hypoxia) -2/2 bilateral COVID-19 pneumonia. Moved out of ICU 05/05. Improving slowly. -On dexamethasone, baricitinib?day 10 -Completed remdesivir x 5 days -Due to elevated D-dimer?c/w Lovenox 40 mg BID. c/w higher dose DVT prophylaxis -On budesonide nebs, albuterol as needed. Continue mucolytics -Monitor inflammatory markers -On Oxymizer at 7L this AM- c/w weaning as tolerated ?appreciate and agree with pulmonology input. -I-S, out of bed to chair with meals -Maintain Airborne isolation precautions. -Lasix intermittently as needed. 2. Allergic asthma (J45.909: Unspecified asthma, uncomplicated) -Stable, not in acute exacerbation. Bronchodilators and supplemental oxygen -Nasal decongestants 3. Pneumonia due to COVID-19 virus (U07.1: COVID-19) -Refer to #1 4. Hyponatremia (E87.1: Hypo-osmolality and hyponatremia) -Improved with IV fluid hydration. 5. Hypertension (I10: Essential (primary) hypertension) -Continue atenolol, amlodipine 6. Chronic GERD (K21.9: Gastro-esophageal reflux disease without esophagitis) -Continue pantoprazole 7. Depression with anxiety (F41.8: Other specified anxiety disorders) -Continue duloxetine, buspirone, gabapentin. Ativan as needed 8. Morbid obesity due to excess calories (E66.01: Morbid (severe) obesity due to excess calories) -BMI 53. Lifestyle modification changes as outpatient 9. No contraindication to deep vein thrombosis (DVT) prophylaxis (Z78.9: Other specified health status) -SCDs, Lovenox Plan discussed in detail patient, nursing staff, CM. This report was transcribed using voice recognition software. Every effort was made to ensure accuracy, however, inadvertently computerized high school learning support teacher mistakes may be present. Dr. Amrik Myers Hospitalist Orders: furosemide, 20 mg = 2 mL, Injection, IV Push, Once, Stop date 05/06/20 15:00:00 EST, Routine, Start date 05/06/20 15:00:00 EST ibuprofen, 400 mg = 0.5 tab(s), Tab, Oral, TID PRN Pain, Routine, Start date 05/06/20 14:48:00 EST sodium chloride nasal, 2 spray(s), [place], Nasal, QID, NOW, Start date 05/07/20 10:19:00 EST Automated Diff C-Reactive Protein CBC w/ Auto Diff Comprehensive Metabolic Panel D-Dimer eGFR Extra SST Tube Lactate Dehydrogenase Magnesium Level Subjective Patient seen and examined bedside this morning. States she thinks her breathing is slightly better compared to yesterday. Tries to sleep on her side. Using incentive spirometer. Would like to sit up in chair today. Denies fevers/chills, N/V/D, abd pain, chest pain. Review of Systems Negative except HPI Objective Vitals & Measurements T: 36.6 ?C (Oral) TMIN: 36.6 ?C (Oral) TMAX: 36.8 ?C (Oral) HR: 60(Monitored) RR: 20 BP: 106/66 SpO2: 93% WT: 127.4 kg Intake & Output This visit (24 hour periods starting at 07:00 EST) 05/07/20 * 05/06/20 05/05/20 Total Summary Intake mL 1.5 1,043.5 1,681.5 Output mL -- 850 4,600 Fluid Balance 1.5 193.5 -2,918.5 Intake (4) Al hydroxide/Mg hydroxide/simethicone mL -- 60 -- Oral Intake mL -- 980 1,680 dexamethasone mL 1.5 1.5 1.5 furosemide mL -- 2 -- Total 1.5 1,043.5 1,681.5 Output (2) Urine Catheter mL -- 650 3,800 Urine Voided mL -- 200 800 Total -- 850 4,600 Counts (2) Stool Count 1 -- 1 Urine Count 3 3 -- * This column has not completed the indicated time period. Physical Exam General: Alert and oriented, No acute distress. Eye: Pupils are equal, round and reactive to light. HENT: Normocephalic. Neck: Supple. Respiratory: Normal respiratory effort, mild expiratory crackles bilaterally at bases. Cardiovascular: Regular rate and rhythm, no murmurs, normal S1,S2, no chest wall tenderness to palpation Gastrointestinal: Soft, Non-tender, Non-distended, Normo-active bowel sounds in all quadrants. Musculoskeletal: Normal range of motion. Neurologic: Normal sensory, Normal motor function. CN 2-12 grossly intact. Cognition and Speech: Speech clear and coherent. Psychiatric: Cooperative, Appropriate mood & affect. Integumentary: Warm, [place]. Lab Results WBC: 11.7 E9/L High (05/07/20 06:27:00) RBC: 4.4 E12/L (05/07/20 06:27:00) Hgb: 11.3 gm/dL Low (05/07/20 06:27:00) Hct: 34.6 % (05/07/20 06:27:00) MCV: 77.8 fL Low (05/07/20 06:27:00) MCH: 25.4 pg Low (05/07/20 06:27:00) MCHC: 32.6 gm/dL (05/07/20 06:27:00) RDW: 16.1 % High (05/07/20 06:27:00) Platelet: 587 E9/L High (05/07/20 06:27:00) MPV: 7 fL (05/07/20 06:27:00) Neutro Auto: 75.5 % High (05/07/20 06:27:00) Lymph Auto: 15.2 % (05/07/20 06:27:00) [place] Auto: 8.8 % (05/07/20 06:27:00) Eos Auto: 0.3 % (05/07/20 06:27:00) Basophil Auto: 0.2 % (05/07/20 06:27:00) Neutro Absolute: 8.9 E9/L High (05/07/20 06:27:00) Lymph Absolute: 1.8 E9/L (05/07/20 06:27:00) [place] Absolute: 1 E9/L (05/07/20 06:27:00) Eos Absolute: 0 E9/L (05/07/20 06:27:00) Basophil Absolute: 0 E9/L (05/07/20 06:27:00) D-Dimer: 2259 ng/mL Critical (05/07/20 06:27:00) Glucose Lvl: 122 mg/dL (05/07/20 06:27:00) BUN: 19 mg/dL (05/07/20:27:00) Creatinine: 0.4 mg/dL Low (05/07/20:27:00) eGFR: >60 (05/07/20:27:00) eGFR AA: >60 (05/07/20:27:00) BUN/Creat Ratio: 48 High (05/07/20:27:00) Sodium Lvl: 135 mmol/L (05/07/20 06:27:00) Potassium Lvl: 3.9 mmol/L (05/07/20 06:27:00) Chloride: 100 mmol/L Low (05/07/20:27:00) CO2: 28 mmol/L (05/07/20 06:27:00) AGAP: 11 mEq/L (05/07/20 06:27:00) Calcium Lvl: 8.8 mg/dL Low (05/07/20 06:27:00) Alk Phos: 90 Int._Unit/L (05/07/20:27:00) ALT: 16 Int._Unit/L (05/07/20 06:27:00) AST: 16 Int._Unit/L (05/07/20 06:27:00) Total Protein: 6.9 gm/dL (05/07/20 06:27:00) Albumin Lvl: 3.2 gm/dL Low (05/07/20 06:27:00) Globulin: 3.7 gm/dL (05/07/20 06:27:00) A/G Ratio: 0.9 Low (05/07/20 06:27:00) Bili Total: 0.6 mg/dL (05/07/20 06:27:00) Magnesium: 2.3 mg/dL (05/07/20 06:27:00) CRP: 2.9 mg/dL High (05/07/20 06:27:00) LDH: 177 Int._Unit/L (05/07/20 06:27:00) Glucose Cap: 188 mg/dL High (05/07/20 12:02:00) POC Device SN: [id number] (05/07/20 12:02:00) POC User ID: [id number] (05/07/20 12:02:00) POC Username: JIGNESH HELLER (05/07/20 12:02:00) Problem List/Past Medical History Ongoing Anxiety Asthma Chronic GERD Depression with anxiety Headache Hypertension Morbid obesity due to excess calories Morbid obesity with body mass index of 50 or higher Historical No qualifying data Medications Inpatient acetaminophen 325 mg Tab, 650 mg= 2 tab(s), Oral, q6hr, PRN Al hydroxide/Mg hydroxide/simethicone 200 mg-200 mg-20 mg/5 mL oral suspension, 30 mL, Oral, q6hr, PRN albuterol HFA 90 mcg/inh MDI, 180 mcg= 2 puff(s), Inhalation, q4hr, PRN amLODIPine 10 mg Tab, 10 mg= 1 tab(s), Oral, Daily atenolol 25 mg Tab, 25 mg= 1 tab(s), Oral, Daily Ativan 0.5 mg Tab, 0.5 mg= 1 tab(s), Oral, BID, PRN baricitinib 2 mg oral tablet, 4 mg= 2 tab(s), Oral, Daily budesonide 0.25 mg/2 mL Inh Susp, 0.25 mg= 2 mL, NEB, BID busPIRone 10 mg Tab, 15 mg= 1.5 tab(s), Oral, TID Cymbalta 60 mg Cap-DR, 60 mg= 1 cap(s), Oral, Daily Deep Sea Nasal 0.65% nasal spray, 2 spray(s), Nasal, QID dexamethasone 4 mg/mL Inj 1 mL, 6 mg= 1.5 mL, IV Push, Daily Dextrose 50% Soln-IV, 40 mL, IV Push, Once, PRN gabapentin 400 mg Cap, 400 mg= 1 cap(s), Oral, TID HumaLOG Sliding Scale, 0-10 Units, SubCutaneous, QIDACHS ibuprofen 800 mg Tab, 400 mg= 0.5 tab(s), Oral, TID, PRN Lovenox 40 mg/0.4 mL SC Darshana, 40 mg= 0.4 mL, SubCutaneous, BID Milk of Magnesia 8% Susp-Oral, 30 mL, Oral, q6hr, PRN Mucinex 600 mg Tab-ER, 1200 mg= 2 tab(s), Oral, BID Zofran 4 mg/2 mL Injection, 4 mg= 2 mL, IV Push, q6hr, PRN Home albuterol 0.083% Inh Darshana 3 mL, 2.5 mg= 3 mL, Inhalation amLODIPine 10 mg Tab, Oral, Daily atenolol 25 mg Tab, Oral, Daily budesonide 90 mcg/inh inhalation powder, 2 puff(s), Inhalation, q4hr busPIRone, 15 mg, Oral, TID cyclobenzaprine, 10 mg, Oral, Daily, Still taking, not as prescribed: per patient takes as needed JRuby duloxetine 60 mg Cap-DR, 1 cap(s), Oral, Daily gabapentin 400 mg Cap, 400 mg= 1 cap(s), Oral, TID ibuprofen 800 mg Tab, Oral, BID Vitamin C, 1tablet, Oral, Daily, Self Directed Normal [facility] Comment on above: Result Comment: Elec tronically Signed By: LUCIA WALTON, Amrik H\.br\Date and Time Signed: 05/07/20 14:50 EST eGFRon 05-07-2020 GFR/1.73 sq M predicted among blacks MDRD (S/P/Bld) [Vol rate/Area] mL/min/{1.73_m2} Normal >=59 [facility] Comment on above: Order Comment: Order added by Discern Expert. Result Comment: eGFR is race adjusted. AA=. Performed By: #### 2 [id number], [id number], [id number], [id number], [id number], 8703966, [id number] ####[facility] [address] [place] [address] GFR/1.73 sq M predicted among non-blacks MDRD (S/P/Bld) [Vol rate/Area] mL/min/{1.73_m2} Normal >=59 [facility] Comment on above: Order Comment: Order added by Discern Expert. 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 Kidney failure is indicated at less than 15 mL/min/1.73m2. Performed By: #### 2 [id number], 8496984, 4341870, 3806959, 5533564, 2357071, 3978886 ####[facility] [address] [place] [address] Auto Diffon 05-06-2020 Basophils/100 WBC (Bld) 0.3 % Normal 0.0-2.0 [facility] Comment on above: Order Comment: Order Added by Discern Expert. Performed By: #### 1 [id number], [id number], [id number] #### [facility] [address] [place] [address] Basophils/Leukocytes Auto (Bld) [Pure # fraction] 0.0 E9/L Normal 0.0-0.2 [facility] Comment on above: Order Comment: Order Added by Discern Expert. Performed By: #### 1 [id number], [id number], [id number] #### [facility] [address] [place] [address] Eosinophils/100 WBC (Bld) 0.6 % Normal 0.0-8.0 [facility] Comment on above: Order Comment: Order Added by Discern Expert. Performed By: #### 1 [id number], [id number], [id number] #### [facility] [address] [place] [address] Eosinophils/Leukocytes Auto (Bld) [Pure # fraction] 0.1 E9/L Normal 0.0-0.5 [facility] Comment on above: Order Comment: Order Added by Discern Expert. Performed By: #### 1 [id number], [id number], [id number] #### [facility] [address] [place] [address] Lymphocytes/100 WBC (Bld) 18.6 % Normal 14.0-50.0 [facility] Comment on above: Order Comment: Order Added by Discern Expert. Performed By: #### 1 [id number], [id number], [id number] #### [facility] [address] [place] [address] Lymphocytes/Leukocytes Auto (Bld) [Pure # fraction] 2.1 E9/L Normal 1.0-4.0 [facility] Comment on above: Order Comment: Order Added by Discern Expert. Performed By: #### 1 [id number], [id number], [id number] #### [facility] [address] [place] [address] Monocytes/100 WBC (Bld) 7.4 % Normal 4.0-14.0 [facility] Comment on above: Order Comment: Order Added by Discern Expert. Performed By: #### 1 [id number], [id number], [id number] #### [facility] [address] [place] [address] Monocytes/Leukocytes Auto (Bld) [Pure # fraction] 0.8 E9/L Normal 0.2-1.0 [facility] Comment on above: Order Comment: Order Added by Discern Expert. Performed By: #### 1 [id number], 8381479, 9781490 #### [facility] [address] [place] [address] Neutrophils/100 WBC (Bld) 73.1 % Normal 36.0-75.0 [facility] Comment on above: Order Comment: Order Added by Discern Expert. Performed By: #### 1 [id number], 9244201, 4253412 #### [facility] [address] [place] [address] Neutrophils/Leukocytes Auto (Bld) [Pure # fraction] 8.4 E9/L High 2.0-7.5 [facility] Comment on above: Order Comment: Order Added by Discern Expert. Performed By: #### 1 [id number], 3453575, [id number] #### [facility] [address] [place] [address] CBC w/ Auto Diffon Erythrocyte distribution width (RBC) [Ratio] 16.2 % High 10.9-14.2 [facility] Comment on above: Performed By: #### 1 [id number], [id number], [id number] #### [facility] [address] [place] [address] Hematocrit (Bld) [Volume fraction] 35.3 % Normal 34.0-46.0 [facility] Comment on above: Performed By: #### 1 [id number], 8348994, 1375827 #### [facility] [address] [place] [address] Hemoglobin (Bld) [Mass/Vol] 11.3 g/dL Low 12.0-16.0 [facility] Comment on above: Performed By: #### 1 3821943, 4420197, 0261822 #### [facility] [address] [place] [address] MCH (RBC) [Entitic mass] 24.6 pg Low 27.0-34.0 [facility] Comment on above: Performed By: #### 1 [id number], 3013669, 1115137 #### [facility] [address] [place] [address] MCHC (RBC) [Mass/Vol] 32.0 g/dL Normal 31.4-36.0 [facility] Comment on above: Performed By: #### 1 [id number], 5064219, 3849385 #### [facility] [address] [place] [address] MCV (RBC) [Entitic vol] 76.9 fL Low 80.0-100.0 [facility] Comment on above: Performed By: #### 1 [id number], 6354591, 5672183 #### [facility] [address] [place] [address] Platelet mean volume (Bld) [Entitic vol] 7.3 fL Normal 6.4-10.8 [facility] Comment on above: Performed By: #### 1 7072898, 1628126, 0583722 #### [facility] [address] [place] [address] Platelets (Bld) [#/Vol] 563.0 E9/L High 150.0-500.0 [facility] Comment on above: Performed By: #### 1 [id number], 3600037, 7996102 #### [facility] [address] [place] [address] RBC (Bld) [#/Vol] 4.6 E12/L Normal 4.3-5.9 [facility] Comment on above: Performed By: #### 1 8285512, 1748465, 0297856 #### [facility] [address] [place] [address] WBC corrected for nucl RBC Auto (Bld) [#/Vol] 11.4 E9/L High 4.0-11.0 [facility] Comment on above: Result Comment: Slid e reviewed by cmk. Performed By: #### 1 [id number], 5712919, 3647633 #### [facility] [address] [place] [address] CMPon 05-06-2020 Albumin [Mass/Vol] 0.8 g/dL Low 1.1-2.2 [facility] Comment on above: Performed By: #### 2 [id number] #### [facility] [address] [place] [address] Albumin [Mass/Vol] 3.1 g/dL Low 3.3-5.0 [facility] Comment on above: Performed By: #### 2 [id number] #### [facility] [address] [place] [address] ALP [Catalytic activity/Vol] 92 Int._Unit/L Normal 21-98 [facility] Comment on above: Performed By: #### 2 [id number] #### [facility] [address] [place] [address] ALT No additional P-5'-P [Catalytic activity/Vol] 16 Int._Unit/L Normal 6-46 [facility] Comment on above: Performed By: #### 2 [id number] #### [facility] [address] [place] [address] Anion gap [Moles/Vol] 13 mmol/L Normal 6-16 [facility] Comment on above: Performed By: #### 2 [id number] #### [facility] [address] [place] [address] AST [Catalytic activity/Vol] 16 Int._Unit/L Normal 5-43 [facility] Comment on above: Performed By: #### 2 [id number] #### [facility] [address] [place] [address] Bilirubin [Mass/Vol] 0.3 mg/dL Normal 0.0-1.1 [facility] Comment on above: Performed By: #### 2 [id number] #### [facility] [address] [place] [address] Calcium [Mass/Vol] 8.9 mg/dL Normal 8.9-11.1 [facility] Comment on above: Performed By: #### 2 [id number] #### [facility] [address] [place] [address] Chloride [Moles/Vol] 99 mmol/L Low 101-111 [facility] Comment on above: Performed By: #### 2 [id number] #### [facility] [address] [place] [address] CO2 [Moles/Vol] 27 mmol/L Normal 21-31 [facility] Comment on above: Performed By: #### 2 [id number] #### [facility] [address] [place] [address] Creatinine [Mass/Vol] 0.6 mg/dL Normal 0.5-1.3 [facility] Comment on above: Performed By: #### 2 [id number] #### [facility] [address] [place] [address] Globulin (S) [Mass/Vol] 3.9 g/dL Normal 1.4-4.0 [facility] Comment on above: Performed By: #### 2 [id number] #### [facility] [address] [place] [address] Glucose [Mass/Vol] 97 mg/dL Normal 55-199 [facility] Comment on above: Result Comment: If t his glucose result represents a fasting glucose, interpretation should refer to the following reference range: 55-99 mg/dL Performed By: #### 2 [id number] #### [facility] [address] [place] [address] Potassium [Moles/Vol] 4.0 mmol/L Normal 3.5-5.3 [facility] Comment on above: Performed By: #### 2 [id number] #### [facility] [address] [place] [address] Protein [Mass/Vol] 7.0 g/dL Normal 6.0-7.8 [facility] Comment on above: Performed By: #### 2 [id number] #### [facility] [address] [place] [address] Sodium [Moles/Vol] 135 mmol/L Normal 135-145 [facility] Comment on above: Performed By: #### 2 [id number] #### [facility] [address] [place] [address] Urea nitrogen [Mass/Vol] 17 mg/dL Normal 5-21 [facility] Comment on above: Performed By: #### 2 [id number] #### [facility] [address] [place] [address] Urea nitrogen/Creatinine [Mass ratio] 28 No Units High 10-20 [facility] Comment on above: Performed By: #### 2 [id number] #### [facility] [address] [place] [address] CRPon 05-06-2020 CRP [Mass/Vol] 3.1 mg/dL High <=1.9 [facility] Comment on above: Performed By: #### 2 [id number] #### [facility] [address] [place] [address] Capillary Glucose POCon 04-25 Glucose [Mass/Vol] 280 mg/dL High 55-99 [facility] Comment on above: Result Comment: Jamila shelton Meter Performed By: #### 2 [id number] ####[facility] [address] [place] [address] Glucose [Mass/Vol] 142 mg/dL High 55-99 [facility] Comment on above: Result Comment: Willy khan RN/ Performed By: #### 2 [id number] #### [facility] [address] [place] [address] Glucose [Mass/Vol] 172 mg/dL High 55-99 [facility] Comment on above: Result Comment: Willy POSEY Performed By: #### 2 [id number] ####[facility] [address] [place] [address] Glucose [Mass/Vol] 91 mg/dL Normal 55-99 [facility] Comment on above: Result Comment: Willy khan RN/ Performed By: #### 2 [id number] ####[facility] [address] [place] [address] D-Dimeron 05-06-2020 Fibrin D-dimer FEU (PPP) [Mass/Vol] 4036 ng/mL Abnormal 215-500 [facility] Comment on above: Result Comment: Resu lts Verified By Repeat Analysis Results Called To Anthony FLORES And Read Back For Confirmation On 05/06/2020 07:33:23 EST. This D-Dimer assay may be used in conjunction with a non-high clinical pretest probability assessment to exclude deep-vein thrombosis(DVT). For exclusion of venous thrombosis or pulmonary embolism the analyte D-Dimer should not be used as an aid in patients with: Therapeutic dose anticoagulant therapy for >24 hours Fibrinolytic therapy within previous 7 days Trauma or surgery within previous 4 weeks Disseminated malignacies Aortic aneurysm Sepsis, severe infections, pneumonia, severe skin infections Liver cirrhosis Performed By: #### 1 [id number], [id number], [id number] #### [facility] [address] [place] [address] Interdisciplinary Note - Jose e Manageron 05-06-2020 Interdisciplinary Note - Cell Stripper CRM contacted pt by phone at this time due to Covid precautions. Pt previously rounded with Dr. Myers. PCP verified and insurance information reviewed. DME discussed. Contact information provided. Pt is aware of plan to stay in hospital today, pt is on 7L with oximizer, and will cotninue to t ry to weans down oxygen. Pt reports her son will transport at [place], and she has been keeping family updated. Denies need for CRM to contact family with updates. Denies any further concerns at this time. Normal [facility] Comment on above: Result Comment: Elec tronically Signed By: Lance STAHL, Isabela\.marie\Date and Time Signed: 05/06/20 11:36 EST LDHon 05-06-2020 LDH [Catalytic activity/Vol] 220 Int._Unit/L High 93-218 [facility] Comment on above: Performed By: #### 1 [id number], 6084613, 0976035 #### [facility] [address] [place] [address] Monitor Recordon 05-06-2020 Monitor Record [id number]# 1.00CD:127 Normal [facility] Monitor Record [id number]# 1.00CD:127 Normal [facility] Progress Note-Physicianon Progress Note-Physician Assessment/Plan Patient is a 40-year-old lady with a past medical history of asthma, hypertension, GERD, depression with anxiety, morbid obesity?presented to the ED on 04/28 with shortness of breath and cough? being treated for COVID-19 pneumonia, hypoxia 1. Acute respiratory failure with hypoxia (J96.01: Acute respiratory failure with hypoxia) -Secondary to bilateral COVID-19 pneumonia. Moved out of ICU 05/05 -On dexamethasone, baricitinib?day 9 -Completed remdesivir x5 days -Due to elevated D-dimer?Lovenox 40 mg twice a day higher dose DVT prophylaxis -On budesonide nebs, albuterol as needed. Continue mucolytics -Monitor inflammatory markers along with CMP -On Oxymizer at 7L this AM- c/w weaning as tolerated ?appreciate and agree with pulmonology input. -I-S, out of bed to chair with meals -Maintain Airborne isolation precautions. -We will give IV Lasix 20 mg x 1 dose today 2. Allergic asthma (J45.909: Unspecified asthma, uncomplicated) -Stable, not in acute exacerbation. Bronchodilators and supplemental oxygen 3. Pneumonia due to COVID-19 virus (U07.1: COVID-19) -Refer to #1 4. Hyponatremia (E87.1: Hypo-osmolality and hyponatremia) -Improved with IV fluid hydration. 5. Hypertension (I10: Essential (primary) hypertension) -Continue atenolol, amlodipine 6. Chronic GERD (K21.9: Gastro-esophageal reflux disease without esophagitis) -Continue pantoprazole 7. Depression with anxiety (F41.8: Other specified anxiety disorders) -Continue duloxetine, buspirone, gabapentin. Ativan as needed 8. Morbid obesity due to excess calories (E66.01: Morbid (severe) obesity due to excess calories) -BMI 53. Lifestyle modification changes as outpatient 9. No contraindication to deep vein thrombosis (DVT) prophylaxis (Z78.9: Other specified health status) -SCDs, Lovenox Plan discussed in detail patient, nursing staff, CM. This report was transcribed using voice recognition software. Every effort was made to ensure accuracy, however, inadvertently computerized high school learning support teacher mistakes may be present. Dr. Amrik Myers Hospitalist Orders: furosemide, 20 mg = 2 mL, Injection, IV Push, Once, Stop date 05/06/20 15:00:00 EST, Routine, Start date 05/06/20 15:00:00 EST Automated Diff C-Reactive Protein CBC w/ Auto Diff Comprehensive Metabolic Panel D-Dimer eGFR Extra SST Tube Lactate Dehydrogenase Urinary Catheter Removal Subjective Patient seen and examined bedside this morning. States she continues to feel slightly better. Denies shortness of breath at rest, does get short of breath with exertion to the bathroom. On Oxymizer. Denies fevers, chills. Has cough at times. Denies chest pain, lightheadedness, dizziness, abdominal pain, vomiting, diarrhea. Appetite is good. Review of Systems neg except HPI Objective Vitals & Measurements T: 36.8 ?C (Oral) TMIN: 36.4 ?C (Oral) TMAX: 37.1 ?C (Oral) HR: 69(Monitored) RR: 18 BP: 108/67 SpO2: 90% WT: 127.8 kg Intake & Output This visit (24 hour periods starting at 07:00 EST) 05/06/20 * 05/05/20 05/04/20 Total Summary Intake mL 31.5 1,681.5 1,341.5 Output mL 650 4,600 3,800 Fluid Balance -618.5 -2,918.5 -2,458.5 Intake (3) Al hydroxide/Mg hydroxide/simethicone mL 30 -- -- Oral Intake mL -- 1,680 1,340 dexamethasone mL 1.5 1.5 1.5 Total 31.5 1,681.5 1,341.5 Output (2) Urine Catheter mL 650 3,800 3,800 Urine Voided mL -- 800 -- Total 650 4,600 3,800 Counts (1) Stool Count -- 1 -- * This column has not completed the indicated time period. Physical Exam General: Alert and oriented, No acute distress. Eye: Pupils are equal, round and reactive to light. HENT: Normocephalic. Neck: Supple. Respiratory: Normal respiratory effort, mild expiratory crackles at bases bilaterally Cardiovascular: Regular rate and rhythm, no murmurs, normal S1,S2, no chest wall tenderness to palpation Gastrointestinal: Soft, Non-tender, Non-distended, Normo-active bowel sounds in all quadrants. Musculoskeletal: Normal range of motion. Neurologic: Normal sensory, Normal motor function. CN 2-12 grossly intact. Cognition and Speech: Speech clear and coherent. Psychiatric: Cooperative, Appropriate mood & affect. Integumentary: Warm, Branford. Lab Results WBC: 11.4 E9/L High (05/06/20 06:27:00) RBC: 4.6 E12/L (05/06/20 06:27:00) Hgb: 11.3 gm/dL Low (05/06/20 06:27:00) Hct: 35.3 % (05/06/20 06:27:00) MCV: 76.9 fL Low (05/06/20 06:27:00) MCH: 24.6 pg Low (05/06/20 06:27:00) MCHC: 32 gm/dL (05/06/20 06:27:00) RDW: 16.2 % High (05/06/20 06:27:00) Platelet: 563 E9/L High (05/06/20 06:27:00) MPV: 7.3 fL (05/06/20 06:27:00) Neutro Auto: 73.1 % (05/06/20:27:00) Lymph Auto: 18.6 % (05/06/20 06:27:00) [place] Auto: 7.4 % (05/06/20:27:00) Eos Auto: 0.6 % (05/06/20::00) Basophil Auto: 0.3 % (05/06/20:27:00) Neutro Absolute: 8.4 E9/L High (05/06/20 06:27:00) Lymph Absolute: 2.1 E9/L (05/06/20:27:00) [place] Absolute: 0.8 E9/L (05/06/20 06:27:00) Eos Absolute: 0.1 E9/L (05/06/20:27:00) Basophil Absolute: 0 E9/L (05/06/20:27:00) D-Dimer: 4036 ng/mL Critical (05/06/20 06:27:00) Glucose Lvl: 97 mg/dL (05/06/20 06:27:00) BUN: 17 mg/dL (05/06/20:27:00) Creatinine: 0.6 mg/dL (05/06/20:27:00) eGFR: >60 (05/06/20:27:00) eGFR AA: >60 (05/06/20:27:00) BUN/Creat Ratio: 28 High (05/06/20:27:00) Sodium Lvl: 135 mmol/L (05/06/20 06:27:00) Potassium Lvl: 4 mmol/L (05/06/20 06:27:00) Chloride: 99 mmol/L Low (05/06/20:27:00) CO2: 27 mmol/L (05/06/20 06:27:00) AGAP: 13 mEq/L (05/06/20 06:27:00) Calcium Lvl: 8.9 mg/dL (05/06/20 06:27:00) Alk Phos: 92 Int._Unit/L (05/06/20 06:27:00) ALT: 16 Int._Unit/L (05/06/20 06:27:00) AST: 16 Int._Unit/L (05/06/20 06:27:00) Total Protein: 7 gm/dL (05/06/20 06:27:00) Albumin Lvl: 3.1 gm/dL Low (05/06/20 06:27:00) Globulin: 3.9 gm/dL (05/06/20 06:27:00) A/G Ratio: 0.8 Low (05/06/20 06:27:00) Bili Total: 0.3 mg/dL (05/06/20 06:27:00) CRP: 3.1 mg/dL High (05/06/20 06:27:00) LDH: 220 Int._Unit/L High (05/06/20 06:27:00) Glucose Cap: 172 mg/dL High (05/06/20 12:08:00) POC Device SN: [id number] (05/06/20 12:08:00) POC User ID: [id number] (05/06/20 12:08:00) POC Username: [email or web address] LUCAS (05/06/20 12:08:00) Problem List/Past Medical History Ongoing Anxiety Asthma Chronic GERD Depression with anxiety Headache Hypertension Morbid obesity due to excess calories Morbid obesity with body mass index of 50 or higher Historical No qualifying data Medications Inpatient acetaminophen 325 mg Tab, 650 mg= 2 tab(s), Oral, q6hr, PRN Al hydroxide/Mg hydroxide/simethicone 200 mg-200 mg-20 mg/5 mL oral suspension, 30 mL, Oral, q6hr, PRN albuterol HFA 90 mcg/inh MDI, 180 mcg= 2 puff(s), Inhalation, q4hr, PRN amLODIPine 10 mg Tab, 10 mg= 1 tab(s), Oral, Daily atenolol 25 mg Tab, 25 mg= 1 tab(s), Oral, Daily Ativan 0.5 mg Tab, 0.5 mg= 1 tab(s), Oral, BID, PRN baricitinib 2 mg oral tablet, 4 mg= 2 tab(s), Oral, Daily budesonide 0.25 mg/2 mL Inh Susp, 0.25 mg= 2 mL, NEB, BID busPIRone 10 mg Tab, 15 mg= 1.5 tab(s), Oral, TID Cymbalta 60 mg Cap-DR, 60 mg= 1 cap(s), Oral, Daily dexamethasone 4 mg/mL Inj 1 mL, 6 mg= 1.5 mL, IV Push, Daily Dextrose 50% Soln-IV, 40 mL, IV Push, Once, PRN gabapentin 400 mg Cap, 400 mg= 1 cap(s), Oral, TID HumaLOG Sliding Scale, 0-10 Units, SubCutaneous, QIDACHS ibuprofen 800 mg Tab, 400 mg= 0.5 tab(s), Oral, TID, PRN Lasix 20 mg/2mL Injection, 20 mg= 2 mL, IV Push, Once Lovenox 40 mg/0.4 mL SC Darshana, 40 mg= 0.4 mL, SubCutaneous, BID Milk of Magnesia 8% Susp-Oral, 30 mL, Oral, q6hr, PRN Mucinex 600 mg Tab-ER, 1200 mg= 2 tab(s), Oral, BID Zofran 4 mg/2 mL Injection, 4 mg= 2 mL, IV Push, q6hr, PRN Home albuterol 0.083% Inh Darshana 3 mL, 2.5 mg= 3 mL, Inhalation amLODIPine 10 mg Tab, Oral, Daily atenolol 25 mg Tab, Oral, Daily budesonide 90 mcg/inh inhalation powder, 2 puff(s), Inhalation, q4hr busPIRone, 15 mg, Oral, TID cyclobenzaprine, 10 mg, Oral, Daily, Still taking, not as prescribed: per patient takes as needed JRuby duloxetine 60 mg Cap-DR, 1 cap(s), Oral, Daily gabapentin 400 mg Cap, 400 mg= 1 cap(s), Oral, TID ibuprofen 800 mg Tab, Oral, BID Vitamin C, 1tablet, Oral, Daily, Self Directed Normal [facility] Comment on above: Result Comment: Elec tronically Signed By: LUCIA WALTON, Amrik Lockhart\.br\Date and Time Signed: 05/06/20 14:52 EST XR Chest Single Viewon 05-06 XR Chest Single View Exam Date/Time: 05/06/2020 06:21 EST Reason for Exam: Pneumonia Report IMPRESSION: EXTENSIVE BILATERAL INFILTRATES. WITH THE CLINICAL HISTORY, THE FINDINGS ARE CONSISTENT WITH COVID 19 PNEUMONIA. CLINICAL HISTORY: Pneumonia. Shortness of breath. Covid 19 positive. COMMENT: AP portable. The heart and mediastinum is unremarkable. Except for relative sparing of the apices, there are extensive patchy areas of airspace opacification involving both lungs, with infiltrative changes both central and peripheral in location. No pleural effusion is evident. When compared to the digital developing machine tender radiograph of the CT scan on 04/28/2020, there would appear to be little interval change. FINAL REPORT Dictated: 05/06/2020 10:59 am Dino Arce M.D. Signed (Electronic Signature): 05/06/2020 10:59 am Signed by: Dino Arce M.D. Transcribed by: MAGGY Technologist: LYNN Normal [facility] eGFRon 05-06-2020 GFR/1.73 sq M predicted among blacks MDRD (S/P/Bld) [Vol rate/Area] mL/min/{1.73_m2} Normal >=59 [facility] Comment on above: Order Comment: Order added by Discern Expert. Result Comment: eGFR is race adjusted. AA=. Performed By: #### 2 [id number] #### [facility] [address] [place] [address] GFR/1.73 sq M predicted among non-blacks MDRD (S/P/Bld) [Vol rate/Area] mL/min/{1.73_m2} Normal >=59 [facility] Comment on above: Order Comment: Order added by Discern Expert. 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 Kidney failure is indicated at less than 15 mL/min/1.73m2. Performed By: #### 2 [id number] #### [facility] [address] [place] [address] CRPon 05-05-2020 CRP [Mass/Vol] 4.7 mg/dL High <=1.9 [facility] Comment on above: Performed By: #### 1 [id number] #### [facility] [address] [place] [address] Capillary Glucose POCon 04-25 Glucose [Mass/Vol] 185 mg/dL High 55-99 [facility] Comment on above: Result Comment: Willy POSEY Performed By: #### 2 [id number] ####[facility] [address] [place] [address] Glucose [Mass/Vol] 231 mg/dL High 55-99 [facility] Comment on above: Result Comment: Willy POSEY Performed By: #### 1 [id number], [id number], [id number] #### [facility] [address] [place] [address] Glucose [Mass/Vol] 200 mg/dL High 55-99 [facility] Comment on above: Result Comment: Willy POSEY Performed By: #### 2 [id number] ####[facility] [address] [place] [address] Glucose [Mass/Vol] 92 mg/dL Normal 55-99 [facility] Comment on above: Result Comment: Willy POSEY Performed By: #### 2 [id number] ####[facility] [id number] [place] [address] D-Dimeron 05-05-2020 Fibrin D-dimer FEU (PPP) [Mass/Vol] 4676 ng/mL Abnormal 215-500 [facility] Comment on above: Result Comment: Resu lts Verified By Repeat Analysis. Results Called To Margarette Lee By Juan And Read Back For Confirmation On 05/05/2020 07:24:48 EST. This D-Dimer assay may be used in conjunction with a non-high clinical pretest probability assessment to exclude deep-vein thrombosis(DVT). For exclusion of venous thrombosis or pulmonary embolism the analyte D-Dimer should not be used as an aid in patients with: Therapeutic dose anticoagulant therapy for >24 hours Fibrinolytic therapy within previous 7 days Trauma or surgery within previous 4 weeks Disseminated malignacies Aortic aneurysm Sepsis, severe infections, pneumonia, severe skin infections Liver cirrhosis Performed By: #### 1 [id number] #### [facility] [address] [place] [address] Ferritinon 05-05-2020 Ferritin [Mass/Vol] 62 ng/mL Normal 11-307 [facility] Comment on above: Result Comment: NORM ALS MEN <30 YRS 16-132 ng/mL MEN >30 YRS 8-338 ng/mL WOMEN (PREMEN) 6-104 ng/mL WOMEN (POSTMEN) 12-210 ng/mL Performed By: #### 1 [id number] #### [facility] [address] [place] [address] Hep Func Panelon 05-05-2020 Bilirubin.direct [Mass/Vol] UTC Abnormal 0.1-0.9 [facility] Comment on above: Result Comment: Resu lt verified by Discern Rule. Performed result UTC (Unable to Calculate) was sent as an Alpha code due the inability to calculate a valid numeric value. Performed By: #### 1 [id number] #### [facility] [address] [place] [address] Albumin [Mass/Vol] 0.8 g/dL Low 1.1-2.2 [facility] Comment on above: Performed By: #### 1 [id number] #### [facility] [address] [place] [address] Albumin [Mass/Vol] 3.1 g/dL Low 3.3-5.0 [facility] Comment on above: Performed By: #### 1 [id number] #### [facility] [address] [place] [address] ALP [Catalytic activity/Vol] 92 Int._Unit/L Normal 21-98 [facility] Comment on above: Performed By: #### 1 [id number] #### [facility] [address] [place] [address] ALT No additional P-5'-P [Catalytic activity/Vol] 12 Int._Unit/L Normal 6-46 [facility] Comment on above: Performed By: #### 1 [id number] #### [facility] [address] [place] [address] AST [Catalytic activity/Vol] 14 Int._Unit/L Normal 5-43 [facility] Comment on above: Performed By: #### 1 [id number] #### [facility] [address] [place] [address] Bilirubin [Mass/Vol] 0.3 mg/dL Normal 0.0-1.1 [facility] Comment on above: Performed By: #### 1 [id number] #### [facility] [address] [place] [address] Bilirubin.direct [Mass/Vol] mg/dL Normal 0.1-0.4 [facility] Comment on above: Performed By: #### 1 [id number] #### [facility] [address] [place] [address] Globulin (S) [Mass/Vol] 3.9 g/dL Normal 1.4-4.0 [facility] Comment on above: Performed By: #### 1 [id number] #### [facility] [address] [place] [address] Protein [Mass/Vol] 7.0 g/dL Normal 6.0-7.8 [facility] Comment on above: Performed By: #### 1 [id number] #### [facility] [address] [place] [address] Interdisciplinary Note - Jose e Manageron 05-05-2020 Interdisciplinary Note - [employer] called pts room, no answer, pt on COVID isolation. Plan is continue w/oxymizer, likely move out of ICU today. Normal [facility] Comment on above: Result Comment: Elec tronically Signed By: Ely STAHL, Jennyfer Medrano\.marie\Date and Time Signed: 05/05/20 13:49 EST Interdisciplinary Note - Raymond singon 05-05-2020 Interdisciplinary Note - Nursing Spoke to Richie calderon on pts status , Answered questions about OX, Normal [facility] LDHon 05-05-2020 LDH [Catalytic activity/Vol] 222 Int._Unit/L High 93-218 [facility] Comment on above: Performed By: #### 1 [id number] #### [facility] [address] [place] [address] Monitor Recordon 05-05-2020 Monitor Record [id number]# 1.00CD:127 Normal [facility] Monitor Record [id number]# 1.00CD:127 Normal [facility] Monitor Record [id number]# 1.00CD:127 Normal [facility] Progress Note - Pharmacyon 0 05-05-2020 Progress Note - Pharmacy Pharmacy Medication Review - ICU Patients I have personally reviewed this patient's current inpatient medication orders and will communicate any recommendations to the attending physician. IV antibiotic(s): No Day of therapy: Mechanically ventilated: No Sedation: n/a Continuous infusion(s): No Renal dose adjustment: No Estimated CrCl: 203.6 mL/min Adjusted medications: Candidate for IV to PO conversion: n/a Need for PO/OG/Gtube conversion?no Need for modification of dosing weight vs. measured weight (>10% variance)? yes(adjusted dosing wt to match measured wt) VTE Prophylaxis: Below the Knee Intermittent Pneumatic Compression Device Ordered by: Isa TUCKER - 04/28/2020 1251 enoxaparin 40 mg/0.4 mL SC Darshana [F] Ordered by: Isa TUCKER - 04/28/2020 1252 enoxaparin 40 mg/0.4 mL SC Darshana [F] Ordered by: Isa Solis 05/04/2020 1101 Labs: ADMISSION LAB WORK No Lab Work Done on Admit Date Normal [facility] Progress Note-Physicianon Progress Note-Physician Basic Informatio n Pulmonary following for acute hypoxic respiratory failure secondary to COVID-19 pneumonia Subjective ICU day 7 patient has completed remdesivir, continues on Barcitinib and Dexamethasone. This a.m. is out of bed in chair has been transitioned to Oxymizer of 4 to 6 L holding saturation of 92 to 94%. Reports that she is feeling much better. Hemodynamically intact. Decreased cough. It feels like she is beginning to get some sleep at night. Will be okay to move out of the ICU if she maintains on Oxymizer in bed is needed. Objective Vitals & Measurements T: 36.9 ?C (Oral) TMIN: 36.7 ?C (Oral) TMAX: 36.9 ?C (Oral) HR: 75(Monitored) RR: 15 BP: 157/93 SpO2: 92% Intake & Output This visit (24 hour periods starting at 07:00 EST) 05/05/20 * 05/04/20 05/03/20 Total Summary Intake mL 481.5 1,341.5 1,161.5 Output mL -- 3,800 2,625 Fluid Balance 481.5 -2,458.5 -1,463.5 Intake (2) Oral Intake mL 480 1,340 1,160 dexamethasone mL 1.5 1.5 1.5 Total 481.5 1,341.5 1,161.5 Output (1) Urine Catheter mL -- 3,800 2,625 Total -- 3,800 2,625 Counts (0) * This column has not completed the indicated time period. Physical Exam General: alert, no acute distress Skin: warm, dry Head: no trauma, normocephalic Neck: Trachea midline, no adenopathy, no tenderness Eye: normal conjunctiva, sclera clear ENMT: oral mucosa moist, no pharyngeal erythema or exudate Cardiovascular: regular rate and rhythm, normal peripheral perfusion Respiratory: Lungs bibasilar Rales, respirations non labored at rest -transition to Oxymizer this a.m. 4 to 6 L. Chest wall: no deformity. Gastrointestinal: soft, non distended, no tenderness, no guarding. Back: No tenderness, Normal ROM, Normal alignment. Extremities: no deformity, no trauma Neurological: oriented x 4, LOC appropriate for age, CN II-XII intact, motor strength equal & normal bilaterally, sensation equal & normal bilaterally, speech normal Psychiatric: cooperative, affect appropriate for age, normal judgement, normal psychiatric thoughts. Lab Results D-Dimer: 4676 ng/mL Critical (05/05/20 06:25:00) Alk Phos: 92 Int._Unit/L (05/05/20 06:25:00) ALT: 12 Int._Unit/L (05/05/20 06:25:00) AST: 14 Int._Unit/L (05/05/20 06:25:00) Total Protein: 7 gm/dL (05/05/20 06:25:00) Albumin Lvl: 3.1 gm/dL Low (05/05/20 06:25:00) Globulin: 3.9 gm/dL (05/05/20 06:25:00) A/G Ratio: 0.8 Low (05/05/20 06:25:00) Bili Total: 0.3 mg/dL (05/05/20 06:25:00) Bili Direct: <0.1 (05/05/20 06:25:00) Bili Indirect: Unable to Calculate Abnormal (05/05/20 06:25:00) CRP: 4.7 mg/dL High (05/05/20 06:25:00) LDH: 222 Int._Unit/L High (05/05/20 06:25:00) Glucose Cap: 92 mg/dL (05/05/20 07:59:00) POC Device SN: [id number] (05/05/20 07:59:00) POC User ID: [id number] (05/05/20 07:59:00) POC Username: [email or web address] SOLER (05/05/20 07:59:00) Diagnostic Results Covid positive on 04/23 Images (04/28/2020 11:53 EST CTA Chest) * Final Report * Reason For Exam PE suspected, high prob;Other (please specify) POWERSCRIBE REPORT IMPRESSION: NO CT EVIDENCE OF PULMONARY EMBOLISM. MILDLY ENLARGED MEDIASTINAL AND RIGHT HILAR LYMPH NODES, AND IN LIGHT OF THE EXTENSIVE LUNG FINDINGS, THE LYMPH NODES ARE SUSPECTED TO BE REACTIVE IN NATURE. THE LYMPH NODES COULD BE FURTHER ASSESSED WITH A FOLLOW-UP STUDY AFTER RESOLUTION OF THE LUNG FINDINGS. INCREASED DENSITIES EXTENSIVELY SCATTERED IN BOTH LUNGS, CONSISTENT WITH INFILTRATIVE CHANGES, WITH COVID 19 PNEUMONIA MOST LIKELY. CLINICAL HISTORY: PE suspected, high prob. Shortness of breath. Covid 19 positive. COMMENT: Axial images were obtained after the rapid injection of IV contrast with narrow collimation and reconstructed at a narrow interval. Coronal and sagittal reconstructions were performed. On the PACS, images were reviewed in cine display and using MIP postprocessing. Although the concentration of contrast material within the pulmonary arterial system is not optimal, there is sufficient contrast opacification of the pulmonary arteries, and no intraluminal filling defects are noted. The thoracic aorta is normal in diameter, without evidence of aneurysm or dissection. The heart is upper limits of normal in size. No pericardial effusion is noted. There are small nonspecific bilateral axillary lymph nodes. There are multiple mediastinal lymph nodes, with many of the mediastinal lymph small,, but there are enlarged paratracheal, paracarinal, and subcarinal mediastinal lymph nodes. There also are mildly enlarged right hilar lymph nodes. Left hilar lymph nodes are small and nonspecific. There are multiple irregular areas of increased density scattered throughout both lungs, from the apices to the bases, and in both peripheral and central locations. Most of the areas of increased density are groundglass opacifications, but there are a few areas of denser airspace opacification. The bilateral lung findings are nonspecific, but in light of the clinical history, are most probably due to Covid 19 pneumonia. No pneumothorax nor pleural effusion is evident. No lung mass is delineated, but the extensive areas of airspace opacification limit evaluation for a small lung mass. Superior portions of the liver and spleen are included within the [id number]. There is diffuse fatty infiltration of the visualized portion of the liver. The visualized portion of the spleen appears within normal limits in size. All CT scans at this facility use dose modulation, iterative reconstruction, and/or weight based dosing when appropriate to reduce radiation dose to as low as reasonably achievable. [facility] FINAL REPORT Dictated: 04/28/2020 12:10 pm Dino Arce M.D. [1] Assessment/Plan Acute respiratory failure with hypoxia (J96.01: Acute respiratory failure with hypoxia) Secondary to COVID 19 pneumonia Diagnosed with COVID virus on Apr 24. Presented with subjective fever, SOB and exertional dyspnea, N/D + headache Presents to the ED for further evaluation - hypoxic on r/a - abg with pAo2 of 49 on R/A Initiated on HiFlo support. CT scan obtained negative for PE - however + for diffuse covid 19 penumonia Admitted to the ICU - started on appropriate regimen as follows Pro-Camelia has been assessed and is negative 1/9 patient afebrile overnight, remains on high flow oxygen 40 L / 45%--decreased from 50%. D-dimer trending up 4500, CRP downtrending 5.2, LDH downtrending 268. On exam lung sounds diminished throughout, no wheezes or crackles on my exam. Patient encouraged to utilize incentive spirometry and prone positioning. Slowly improving with current treatment 05/05 Haqving slow clinical improvement -transition to Oxymizer Plan -Has completed remdesivir -Continue with Dexamethasone + Barcitinib -Continue to monitor inflammatory markers LFTs and renal indices, -Lovenox 40 mg - BID - high intensity DVT prophylaxis - continue to trend D-dimer (4676) -Continued on Hi Nancy -titrate for saturation of 92% and higher transition to Oxymizer -Continue with mobilization and prone positioning -Reports intolerance to Albuterol and does use budesonide inhaler as outpatient. Continue with budesonide- BID Allergic asthma (J45.909: Unspecified asthma, uncomplicated) Since a child - however never assessed by Pulmonology - seasonal and exposure to perfumes provoke asthma Home regimen of Budesonide PRN -was taking 3 - 4 x daily over the past week Pneumonia due to COVID-19 virus (U07.1: COVID-19) Plan as #1 Hyponatremia (E87.1: Hypo-osmolality and hyponatremia) resolved Likely secondary to dehydration d/t bouts of diarrhea -resolved Hypertension (I10: Essential (primary) hypertension) -On amlodipine and atenolol Depression with anxiety (F41.8: Other specified anxiety disorders) Morbid obesity due to excess calories (E66.01: Morbid (severe) obesity due to excess calories) No contraindication to deep vein thrombosis (DVT) prophylaxis (Z78.9: Other specified health status) Critical care time 30 minutes Patient to be seen with Dr. Kothari today -we will review plan of care Problem List/Past Medical History Ongoing Anxiety Asthma Chronic GERD Depression with anxiety Headache Hypertension Morbid obesity due to excess calories Morbid obesity with body mass index of 50 or higher Historical No qualifying data Medications Inpatient acetaminophen 325 mg Tab, 650 mg= 2 tab(s), Oral, q6hr, PRN Al hydroxide/Mg hydroxide/simethicone 200 mg-200 mg-20 mg/5 mL oral suspension, 30 mL, Oral, q6hr, PRN albuterol HFA 90 mcg/inh MDI, 180 mcg= 2 puff(s), Inhalation, q4hr, PRN amLODIPine 10 mg Tab, 10 mg= 1 tab(s), Oral, Daily atenolol 25 mg Tab, 25 mg= 1 tab(s), Oral, Daily Ativan 0.5 mg Tab, 0.5 mg= 1 tab(s), Oral, BID, PRN baricitinib 2 mg oral tablet, 4 mg= 2 tab(s), Oral, Daily budesonide 0.25 mg/2 mL Inh Susp, 0.25 mg= 2 mL, NEB, BID busPIRone 10 mg Tab, 15 mg= 1.5 tab(s), Oral, TID Cymbalta 60 mg Cap-DR, 60 mg= 1 cap(s), Oral, Daily dexamethasone 4 mg/mL Inj 1 mL, 6 mg= 1.5 mL, IV Push, Daily Dextrose 50% Soln-IV, 40 mL, IV Push, Once, PRN gabapentin 400 mg Cap, 400 mg= 1 cap(s), Oral, TID HumaLOG Sliding Scale, 0-10 Units, SubCutaneous, QIDACHS ibuprofen 800 mg Tab, 800 mg= 1 tab(s), Oral, BID Lovenox 40 mg/0.4 mL SC Darshana, 40 mg= 0.4 mL, SubCutaneous, BID Milk of Magnesia 8% Susp-Oral, 30 mL, Oral, q6hr, PRN Mucinex 600 mg Tab-ER, 1200 mg= 2 tab(s), Oral, BID Zofran 4 mg/2 mL Injection, 4 mg= 2 mL, IV Push, q6hr, PRN Home albuterol 0.083% Inh Darshana 3 mL, 2.5 mg= 3 mL, Inhalation amLODIPine 10 mg Tab, Oral, Daily atenolol 25 mg Tab, Oral, Daily budesonide 90 mcg/inh inhalation powder, 2 puff(s), Inhalation, q4hr busPIRone, 15 mg, Oral, TID cyclobenzaprine, 10 mg, Oral, Daily, Still taking, not as prescribed: per patient takes as needed JRuby duloxetine 60 mg Cap-DR, 1 cap(s), Oral, Daily gabapentin 400 mg Cap, 400 mg= 1 cap(s), Oral, TID ibuprofen 800 mg Tab, Oral, BID Vitamin C, 1tablet, Oral, Daily, Self Directed [1] CTA Chest; Dino Arce M.D. 04/28/2020 11:53 EST I have seen and examined the patient with the nurse practitioner and agree with the documentation and plan. [facility] Comment on above: Result Comment: Elec tronically Signed By: Taye WALTON, Abner Philip\.br\Date and Time Signed: 05/05/20 17:13 EST Progress Note-Physician Assessment/Plan Patient is a 40-year-old lady with a past medical history of asthma, hypertension, GERD, depression with anxiety, morbid obesity?presented to the ED on 04/28 with shortness of breath and cough?being treated in the ICU for COVID-19 pneumonia, hypoxia 1. Acute respiratory failure with hypoxia (J96.01: Acute respiratory failure with hypoxia) -Secondary to bilateral COVID-19 pneumonia -On dexamethasone, baricitinib?day 8 -Completed remdesivir x5 days -Due to elevated D-dimer?Lovenox 40 mg twice a day higher dose DVT prophylaxis -On budesonide nebs, albuterol as needed. Continue mucolytic's -Monitor inflammatory markers along with CMP -On high flow oxygen this morning?being weaned to Oxymizer?appreciate and agree with pulmonology input. -I-S, out of bed to chair with meals -Airborne isolation precautions. 2. Allergic asthma (J45.909: Unspecified asthma, uncomplicated) -Stable, not in acute exacerbation. Bronchodilators and supplemental oxygen 3. Pneumonia due to COVID-19 virus (U07.1: COVID-19) -Refer to #1 4. Hyponatremia (E87.1: Hypo-osmolality and hyponatremia) -Improved with IV fluid hydration. 5. Hypertension (I10: Essential (primary) hypertension) -Continue atenolol, amlodipine 6. Chronic GERD (K21.9: Gastro-esophageal reflux disease without esophagitis) -Continue pantoprazole 7. Depression with anxiety (F41.8: Other specified anxiety disorders) -Continue duloxetine, buspirone. Ativan as needed 8. Morbid obesity due to excess calories (E66.01: Morbid (severe) obesity due to excess calories) -BMI 53. Lifestyle modification changes as outpatient 9. No contraindication to deep vein thrombosis (DVT) prophylaxis (Z78.9: Other specified health status) -SCDs, Lovenox Orders: albuterol, 180 mcg, 2 puff(s), Aerosol, Inhalation, q4hr PRN Shortness of breath or wheezing, Routine, Start date 05/05/20 8:14:00 EST, COVID PATIENTS ONLY Plan discussed in detail patient, nursing staff, CM. If patient remains stable on Oxymizer?may transfer from ICU to telemetry floor. Please use this as my transfer note This report was transcribed using voice recognition software. Every effort was made to ensure accuracy, however, inadvertently computerized high school learning support teacher mistakes may be present. Dr. Amrik Myers Hospitalist Subjective Patient seen and examined bedside this morning. Sitting up comfortably in chair. States she continues to feel slightly better every day. Shortness of breath improving, still has cough. Denies fevers, chills, chest pain, abdominal pain, vomiting, diarrhea. Appetite is good. Review of Systems Negative except HPI Objective Vitals & Measurements T: 37 ?C (Oral) TMIN: 36.7 ?C (Oral) TMAX: 37 ?C (Oral) HR: 66(Monitored) RR: 26 BP: 152/93 SpO2: 92% Intake & Output This visit (24 hour periods starting at 07:00 EST) 05/05/20 * 05/04/20 05/03/20 Total Summary Intake mL 721.5 1,341.5 1,161.5 Output mL -- 3,800 2,625 Fluid Balance 721.5 -2,458.5 -1,463.5 Intake (2) Oral Intake mL 720 1,340 1,160 dexamethasone mL 1.5 1.5 1.5 Total 721.5 1,341.5 1,161.5 Output (1) Urine Catheter mL -- 3,800 2,625 Total -- 3,800 2,625 Counts (0) * This column has not completed the indicated time period. Physical Exam General: Alert and oriented, No acute distress. Eye: Pupils are equal, round and reactive to light. HENT: Normocephalic. Neck: Supple. Respiratory: Normal respiratory effort, mild expiratory crackles at bases bilaterally Cardiovascular: Regular rate and rhythm, no murmurs, normal S1,S2, no chest wall tenderness to palpation Gastrointestinal: Soft, Non-tender, Non-distended, Normo-active bowel sounds in all quadrants. Musculoskeletal: Normal range of motion. Neurologic: Normal sensory, Normal motor function. CN 2-12 grossly intact. Cognition and Speech: Speech clear and coherent. Psychiatric: Cooperative, Appropriate mood & affect. Integumentary: Warm, Branford. Lab Results D-Dimer: 4676 ng/mL Critical (05/05/20 06:25:00) Alk Phos: 92 Int._Unit/L (05/05/20 06:25:00) ALT: 12 Int._Unit/L (05/05/20 06:25:00) AST: 14 Int._Unit/L (05/05/20:25:00) Total Protein: 7 gm/dL (05/05/20 06:25:00) Albumin Lvl: 3.1 gm/dL Low (05/05/20:25:00) Globulin: 3.9 gm/dL (05/05/20:25:00) A/G Ratio: 0.8 Low (05/05/20:25:00) Bili Total: 0.3 mg/dL (05/05/20 06:25:00) Bili Direct: <0.1 (05/05/20:25:00) Bili Indirect: Unable to Calculate Abnormal (05/05/20 06:25:00) CRP: 4.7 mg/dL High (05/05/20 06:25:00) LDH: 222 Int._Unit/L High (05/05/20:25:00) Ferritin Lvl: 62 ng/mL (05/05/20:25:00) Glucose Cap: 200 mg/dL High (05/05/20 11:35:00) POC Device SN: [id number] (05/05/20 11:35:00) POC User ID: [id number] (05/05/20:35:00) POC Username: [email or web address] SOLER (05/05/20 11:35:00) Problem List/Past Medical History Ongoing Anxiety Asthma Chronic GERD Depression with anxiety Headache Hypertension Morbid obesity due to excess calories Morbid obesity with body mass index of 50 or higher Historical No qualifying data Medications Inpatient acetaminophen 325 mg Tab, 650 mg= 2 tab(s), Oral, q6hr, PRN Al hydroxide/Mg hydroxide/simethicone 200 mg-200 mg-20 mg/5 mL oral suspension, 30 mL, Oral, q6hr, PRN albuterol HFA 90 mcg/inh MDI, 180 mcg= 2 puff(s), Inhalation, q4hr, PRN amLODIPine 10 mg Tab, 10 mg= 1 tab(s), Oral, Daily atenolol 25 mg Tab, 25 mg= 1 tab(s), Oral, Daily Ativan 0.5 mg Tab, 0.5 mg= 1 tab(s), Oral, BID, PRN baricitinib 2 mg oral tablet, 4 mg= 2 tab(s), Oral, Daily budesonide 0.25 mg/2 mL Inh Susp, 0.25 mg= 2 mL, NEB, BID busPIRone 10 mg Tab, 15 mg= 1.5 tab(s), Oral, TID Cymbalta 60 mg Cap-DR, 60 mg= 1 cap(s), Oral, Daily dexamethasone 4 mg/mL Inj 1 mL, 6 mg= 1.5 mL, IV Push, Daily Dextrose 50% Soln-IV, 40 mL, IV Push, Once, PRN gabapentin 400 mg Cap, 400 mg= 1 cap(s), Oral, TID HumaLOG Sliding Scale, 0-10 Units, SubCutaneous, QIDACHS ibuprofen 800 mg Tab, 800 mg= 1 tab(s), Oral, BID Lovenox 40 mg/0.4 mL SC Darshana, 40 mg= 0.4 mL, SubCutaneous, BID Milk of Magnesia 8% Susp-Oral, 30 mL, Oral, q6hr, PRN Mucinex 600 mg Tab-ER, 1200 mg= 2 tab(s), Oral, BID Zofran 4 mg/2 mL Injection, 4 mg= 2 mL, IV Push, q6hr, PRN Home albuterol 0.083% Inh Darshana 3 mL, 2.5 mg= 3 mL, Inhalation amLODIPine 10 mg Tab, Oral, Daily atenolol 25 mg Tab, Oral, Daily budesonide 90 mcg/inh inhalation powder, 2 puff(s), Inhalation, q4hr busPIRone, 15 mg, Oral, TID cyclobenzaprine, 10 mg, Oral, Daily, Still taking, not as prescribed: per patient takes as needed JRuby duloxetine 60 mg Cap-DR, 1 cap(s), Oral, Daily gabapentin 400 mg Cap, 400 mg= 1 cap(s), Oral, TID ibuprofen 800 mg Tab, Oral, BID Vitamin C, 1tablet, Oral, Daily, Self Directed Normal [facility] Comment on above: Result Comment: Elec tronically Signed By: LUCIA WALTON, Amrik H\.br\Date and Time Signed: 05/05/20 12:26 EST CMPon 05-04-2020 Albumin [Mass/Vol] 0.8 g/dL Low 1.1-2.2 [facility] Comment on above: Performed By: #### 1 [id number] #### [facility] [address] [place] [address] Albumin [Mass/Vol] 3.0 g/dL Low 3.3-5.0 [facility] Comment on above: Performed By: #### 1 [id number] #### [facility] [address] [place] [address] ALP [Catalytic activity/Vol] 98 Int._Unit/L Normal 21-98 [facility] Comment on above: Performed By: #### 1 [id number] #### [facility] [address] [place] [address] ALT No additional P-5'-P [Catalytic activity/Vol] 12 Int._Unit/L Normal 6-46 [facility] Comment on above: Performed By: #### 1 [id number] #### [facility] [address] [place] [address] Anion gap [Moles/Vol] 14 mmol/L Normal 6-16 [facility] Comment on above: Performed By: #### 1 [id number] #### [facility] [address] [place] [address] AST [Catalytic activity/Vol] 15 Int._Unit/L Normal 5-43 [facility] Comment on above: Performed By: #### 1 [id number] #### [facility] [address] [place] [address] Bilirubin [Mass/Vol] 0.4 mg/dL Normal 0.0-1.1 [facility] Comment on above: Performed By: #### 1 [id number] #### [facility] [address] [place] [address] Calcium [Mass/Vol] 8.7 mg/dL Low 8.9-11.1 [facility] Comment on above: Performed By: #### 1 [id number] #### [facility] [address] [place] [address] Chloride [Moles/Vol] 99 mmol/L Low 101-111 [facility] Comment on above: Performed By: #### 1 [id number] #### [facility] [address] [place] [address] CO2 [Moles/Vol] 26 mmol/L Normal 21-31 [place] [facility] Comment on above: Performed By: #### 1 [id number] #### [facility] [address] [place] [address] Creatinine [Mass/Vol] 0.5 mg/dL Normal 0.5-1.3 [facility] Comment on above: Performed By: #### 1 [id number] #### [facility] [address] [place] [address] Globulin (S) [Mass/Vol] 3.8 g/dL Normal 1.4-4.0 [facility] Comment on above: Performed By: #### 1 [id number] #### [facility] [address] [place] [address] Glucose [Mass/Vol] 105 mg/dL Normal 55-199 [facility] Comment on above: Result Comment: If t his glucose result represents a fasting glucose, interpretation should refer to the following reference range: 55-99 mg/dL Performed By: #### 1 [id number] #### [facility] [address] [place] [address] Potassium [Moles/Vol] 4.1 mmol/L Normal 3.5-5.3 [facility] Comment on above: Performed By: #### 1 [id number] #### [facility] [address] [place] [address] Protein [Mass/Vol] 6.8 g/dL Normal 6.0-7.8 [facility] Comment on above: Performed By: #### 1 [id number] #### [facility] [address] [place] [address] Sodium [Moles/Vol] 135 mmol/L Normal 135-145 [facility] Comment on above: Performed By: #### 1 [id number] #### [facility] [address] [place] [address] Urea nitrogen [Mass/Vol] 15 mg/dL Normal 5-21 [facility] Comment on above: Performed By: #### 1 [id number] #### [facility] [address] [place] [address] Urea nitrogen/Creatinine [Mass ratio] 30 No Units High 10-20 [facility] Comment on above: Performed By: #### 1 [id number] #### [facility] [address] [place] [address] CRPon 05-04-2020 CRP [Mass/Vol] 5.1 mg/dL High <=1.9 [facility] Comment on above: Performed By: #### 1 [id number] #### [facility] [address] [place] [address] Capillary Glucose POCon 04-25 Glucose [Mass/Vol] 181 mg/dL High 55-99 [facility] Comment on above: Performed By: #### 2 [id number] ####[facility] [address] [place] [address] Glucose [Mass/Vol] 177 mg/dL High 55-99 [facility] Comment on above: Result Comment: Willy khan RN/ Performed By: #### 2 [id number] ####[facility] [address] [place] [address] Glucose [Mass/Vol] 178 mg/dL High 55-99 [facility] Comment on above: Result Comment: Willy khan RN/ Performed By: #### 2 [id number] ####[facility] [address] [place] [address] Glucose [Mass/Vol] 81 mg/dL Normal 55-99 [facility] Comment on above: Result Comment: Willy POSEY Performed By: #### 1 [id number] #### [facility] [address] [place] [address] D-Dimeron 05-04-2020 Fibrin D-dimer FEU (PPP) [Mass/Vol] 4359 ng/mL Abnormal 215-500 [facility] Comment on above: Result Comment: Resu lts Verified By Repeat Analysis Results Called To Nneka Leung/ICU By Brunilda Ledezma And Read Back For Confirmation On 05/04/2020 05:58:24 EST. This D-Dimer assay may be used in conjunction with a non-high clinical pretest probability assessment to exclude deep-vein thrombosis(DVT). For exclusion of venous thrombosis or pulmonary embolism the analyte D-Dimer should not be used as an aid in patients with: Therapeutic dose anticoagulant therapy for >24 hours Fibrinolytic therapy within previous 7 days Trauma or surgery within previous 4 weeks Disseminated malignacies Aortic aneurysm Sepsis, severe infections, pneumonia, severe skin infections Liver cirrhosis Performed By: #### 1 [id number] #### [facility] [address] [place] [address] Ferritinon 05-04-2020 Ferritin [Mass/Vol] 72 ng/mL Normal 11-307 [facility] Comment on above: Result Comment: NORM ALS MEN <30 YRS 16-132 ng/mL MEN >30 YRS 8-338 ng/mL WOMEN (PREMEN) 6-104 ng/mL WOMEN (POSTMEN) 12-210 ng/mL Performed By: #### 2 [id number] #### [facility] [address] [place] [address] Interdisciplinary Note - Jose e Manageron 05-04-2020 Interdisciplinary Note - Cell Stripper pt is asleep in bed at this time, remains on high flow oxygen. Plan to stay in hospital for few more days. Pt updating family on own per nursing. CRM following for needs. Normal [facility] Comment on above: Result Comment: Elec tronically Signed By: Lance STAHL, Isabela\mane\Date and Time Signed: 05/04/20 09:50 EST LDHon 05-04-2020 LDH [Catalytic activity/Vol] 235 Int._Unit/L High 93-218 [facility] Comment on above: Performed By: #### 1 [id number] #### [facility] [address] [place] [address] Monitor Recordon 05-04-2020 Monitor Record [id number]# 1.00CD:127 [facility] Monitor Record [id number]# 1.00CD:127 [facility] Monitor Record [id number]# 1.00CD:127 Normal [facility] Monitor Record [id number]# 1.00CD:127 Normal [facility] Monitor Record [id number]# 1.00CD:127 Normal [facility] Progress Note-Physicianon Progress Note-Physician Assessment/Plan 1. Acute respiratory failure with hypoxia (J96.01: Acute respiratory failure with hypoxia) - PaO2 49 on ABG on RA - on admission - secondary to bilateral covid 19 pneumonia - remdesivir (completed 5 days) - decadron, baricitinib day 7 - budesonide added as per pulmonary - d-dimer over 4,0000 - will increase lovenox to bid dosing - hypercoagulable state with COVID 19 pneumonia - monitor inflammatory markers, LFT - wean off high flow oxygen (was on 40 liters and 45%), will try to wean to oxymizer currently on 10 L and O2 sat 93% no distress - IS, out of bed to chair TID with meals - reviewed and agree with pulmonary recs Ordered: Sbsq Hospital Care/Day Moderate 25 Minutes 99180 2. Allergic asthma (J45.909: Unspecified asthma, uncomplicated) - stable, not in acute exacerbation - budesonide 3. Pneumonia due to COVID-19 virus (U07.1: COVID-19) - as above 4. Hyponatremia (E87.1: Hypo-osmolality and hyponatremia) - stable, stopped IVF, encourage PO intake 5. Hypertension (I10: Essential (primary) hypertension) - stable, stopped IVF, encourage PO intake 6. Chronic GERD (K21.9: Gastro-esophageal reflux disease without esophagitis) - protonix 7. Depression with anxiety (F41.8: Other specified anxiety disorders) - cymbalta, buspar - low dose ativan prn 8. Morbid obesity due to excess calories (E66.01: Morbid (severe) obesity due to excess calories) - BMI 53 - lifestyle modification, outpatient PCP follow up 9. No contraindication to deep vein thrombosis (DVT) prophylaxis (Z78.9: Other specified health status) - SCDs, lovenox (bid dosing as above) Orders: remdesivir + Sodium Chloride 0.9% intravenous solution 250 mL, 100 mg = 20 mL, IV Piggyback, Noon for 4 dose(s), Stop date 05/03/20 11:59:00 EST, Routine, Start date 04/29/20 12:00:00 EST, 250 mL/hr, Infuse over 1 hour(s) C-Reactive Protein C-Reactive Protein Capillary Glucose POC Capillary Glucose POC Capillary Glucose POC Comprehensive Metabolic Panel D-Dimer D-Dimer eGFR Extra Lav Tube Ferritin Ferritin Ferritin Hepatic Function Panel Lactate Dehydrogenase Lactate Dehydrogenase Subjective Pt says she had a good night and doing well this morning. no CP. sob slowly decreasing. no nausea or vomiting. Review of Systems Constitutional: No fevers, chills Eye: Negative. Ear/Nose/Mouth/Throat : Negative. Respiratory: sob Cardiovascular: Negative. Gastrointestinal: Negative. Genitourinary: Negative. Immunologic: Negative. Musculoskeletal: Negative. Integumentary: Negative. Neurologic: Negative. Psychiatric: Negative. All other systems are negative Objective Vitals & Measurements T: 36.7 ?C (Oral) TMIN: 36.7 ?C (Oral) TMAX: 37.1 ?C (Oral) HR: 72(Monitored) RR: 24 BP: 138/70 SpO2: 93% WT: 112.5 kg Intake & Output This visit (24 hour periods starting at 07:00 EST) 05/04/20 * 05/03/20 05/02/20 Total Summary Intake mL 421.5 1,161.5 251.5 Output mL -- 2,625 1,350 Fluid Balance 421.5 -1,463.5 -1,098.5 Intake (3) Oral Intake mL 420 1,160 -- Sodium Chloride 0.9%, remdesivir mL -- -- 250 dexamethasone mL 1.5 1.5 1.5 Total 421.5 1,161.5 251.5 Output (1) Urine Catheter mL -- 2,625 1,350 Total -- 2,625 1,350 Counts (0) * This column has not completed the indicated time period. Physical Exam General: alert, no acute distress ENMT: oral mucosa moist, no pharyngeal erythema or exudate Cardiovascular: regular rate and rhythm, normal peripheral perfusion Respiratory: Lungs some rhonci bilaterally, some increase in air exchange, respirations non labored Abdomen: soft, NTND, +BS Skin: warm, dry, intact Extremities: no deformity, no trauma Neurological: LOC appropriate for age, CN II-XII intact, motor strength equal & normal bilaterally, sensation equal & normal bilaterally, speech normal Lab Results D-Dimer: 4359 ng/mL Critical (05/04/20 04:00:00) Glucose Lvl: 105 mg/dL (05/04/20 04:00:00) BUN: 15 mg/dL (05/04/20 04:00:00) Creatinine: 0.5 mg/dL (05/04/20 04:00:00) eGFR: >60 (05/04/20 04:00:00) eGFR AA: >60 (05/04/20 04:00:00) BUN/Creat Ratio: 30 High (05/04/20 04:00:00) Sodium Lvl: 135 mmol/L (05/04/20 04:00:00) Potassium Lvl: 4.1 mmol/L (05/04/20 04:00:00) Chloride: 99 mmol/L Low (05/04/20 04:00:00) CO2: 26 mmol/L (05/04/20 04:00:00) AGAP: 14 mEq/L (05/04/20 04:00:00) Calcium Lvl: 8.7 mg/dL Low (05/04/20 04:00:00) Alk Phos: 98 Int._Unit/L (05/04/20 04:00:00) ALT: 12 Int._Unit/L (05/04/20 04:00:00) AST: 15 Int._Unit/L (05/04/20 04:00:00) Total Protein: 6.8 gm/dL (05/04/20 04:00:00) Albumin Lvl: 3 gm/dL Low (05/04/20 04:00:00) Globulin: 3.8 gm/dL (05/04/20 04:00:00) A/G Ratio: 0.8 Low (05/04/20 04:00:00) Bili Total: 0.4 mg/dL (05/04/20 04:00:00) CRP: 5.1 mg/dL High (05/04/20 04:00:00) LDH: 235 Int._Unit/L High (05/04/20 04:00:00) Ferritin Lvl: 72 ng/mL (05/04/20 04:00:00) Glucose Cap: 81 mg/dL (05/04/20 08:05:00) POC Device SN: [id number] (05/04/20 08:05:00) POC User ID: [id number] (05/04/20 08:05:00) POC Username: KENNETH AMERICA (05/04/20 08:05:00) Problem List/Past Medical History Ongoing Anxiety Asthma Chronic GERD Depression with anxiety Headache Hypertension Morbid obesity due to excess calories Morbid obesity with body mass index of 50 or higher Historical No qualifying data Medications Inpatient acetaminophen 325 mg Tab, 650 mg= 2 tab(s), Oral, q6hr, PRN Al hydroxide/Mg hydroxide/simethicone 200 mg-200 mg-20 mg/5 mL oral suspension, 30 mL, Oral, q6hr, PRN amLODIPine 10 mg Tab, 10 mg= 1 tab(s), Oral, Daily atenolol 25 mg Tab, 25 mg= 1 tab(s), Oral, Daily Ativan 0.5 mg Tab, 0.5 mg= 1 tab(s), Oral, BID, PRN baricitinib 2 mg oral tablet, 4 mg= 2 tab(s), Oral, Daily budesonide 0.25 mg/2 mL Inh Susp, 0.25 mg= 2 mL, NEB, BID busPIRone 10 mg Tab, 15 mg= 1.5 tab(s), Oral, TID Cymbalta 60 mg Cap-DR, 60 mg= 1 cap(s), Oral, Daily dexamethasone 4 mg/mL Inj 1 mL, 6 mg= 1.5 mL, IV Push, Daily Dextrose 50% Soln-IV, 40 mL, IV Push, Once, PRN gabapentin 400 mg Cap, 400 mg= 1 cap(s), Oral, TID HumaLOG Sliding Scale, 0-10 Units, SubCutaneous, QIDACHS ibuprofen 800 mg Tab, 800 mg= 1 tab(s), Oral, BID Lovenox 40 mg/0.4 mL SC Darshana, 40 mg= 0.4 mL, SubCutaneous, Daily Milk of Magnesia 8% Susp-Oral, 30 mL, Oral, q6hr, PRN Mucinex 600 mg Tab-ER, 1200 mg= 2 tab(s), Oral, BID Zofran 4 mg/2 mL Injection, 4 mg= 2 mL, IV Push, q6hr, PRN Home albuterol 0.083% Inh Darshana 3 mL, 2.5 mg= 3 mL, Inhalation amLODIPine 10 mg Tab, Oral, Daily atenolol 25 mg Tab, Oral, Daily budesonide 90 mcg/inh inhalation powder, 2 puff(s), Inhalation, q4hr busPIRone, 15 mg, Oral, TID cyclobenzaprine, 10 mg, Oral, Daily, Still taking, not as prescribed: per patient takes as needed JRuby duloxetine 60 mg Cap-DR, 1 cap(s), Oral, Daily gabapentin 400 mg Cap, 400 mg= 1 cap(s), Oral, TID ibuprofen 800 mg Tab, Oral, BID Vitamin C, 1tablet, Oral, Daily, Self Directed Normal [facility] Comment on above: Result Comment: Elec tronically Signed By: CAITLIN WALTON, Isa\.br\Date and Time Signed: 05/04/20 11:01 EST eGFRon 05-04-2020 GFR/1.73 sq M predicted among blacks MDRD (S/P/Bld) [Vol rate/Area] mL/min/{1.73_m2} Normal >=59 [facility] Comment on above: Order Comment: Urina ry Catheter Insertion triggered Urinalysis With Culture Reflex order by discern. Result Comment: eGFR is race adjusted. AA=. Performed By: #### 1 [id number] #### [facility] [address] [place] [address] GFR/1.73 sq M predicted among non-blacks MDRD (S/P/Bld) [Vol rate/Area] mL/min/{1.73_m2} Normal >=59 [facility] Comment on above: Order Comment: Urina ry Catheter Insertion triggered Urinalysis With Culture Reflex order by discern. 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 Kidney failure is indicated at less than 15 mL/min/1.73m2. Performed By: #### 1 [id number] #### [facility] [address] [place] [address] CRPon 05-03-2020 CRP [Mass/Vol] 5.2 mg/dL High <=1.9 [facility] Comment on above: Performed By: #### 2 [id number] #### [facility] [address] [place] [address] Capillary Glucose POCon Glucose [Mass/Vol] 242 mg/dL High 55-99 [facility] Comment on above: Result Comment: Jamila nikita Meter Performed By: #### 2 [id number] ####[facility] [address] [place] [address] Glucose [Mass/Vol] 229 mg/dL High 55-99 [facility] Comment on above: Result Comment: Willy khan RN/ Performed By: #### 2 [id number] ####[facility] [address] [place] [address] Glucose [Mass/Vol] 82 mg/dL Normal 55-99 [facility] Comment on above: Result Comment: Willy khan RN/ Performed By: #### 1 [id number] #### [facility] [address] [place] [address] D-Dimeron 05-03-2020 Fibrin D-dimer FEU (PPP) [Mass/Vol] 4583 ng/mL Abnormal 215-500 [facility] Comment on above: Result Comment: Resu lts Called To [facility] ICU By MOSES And Read Back For Confirmation On 05/03/2020 06:55:19 EST. Results Verified By Repeat Analysis This D-Dimer assay may be used in conjunction with a non-high clinical pretest probability assessment to exclude deep-vein thrombosis(DVT). For exclusion of venous thrombosis or pulmonary embolism the analyte D-Dimer should not be used as an aid in patients with: Therapeutic dose anticoagulant therapy for >24 hours Fibrinolytic therapy within previous 7 days Trauma or surgery within previous 4 weeks Disseminated malignacies Aortic aneurysm Sepsis, severe infections, pneumonia, severe skin infections Liver cirrhosis Performed By: #### 2 [id number] #### [facility] [address] [place] [address] Ferritinon 05-03-2020 Ferritin [Mass/Vol] 105 ng/mL Normal 11-307 [facility] Comment on above: Result Comment: NORM ALS MEN <30 YRS 16-132 ng/mL MEN >30 YRS 8-338 ng/mL WOMEN (PREMEN) 6-104 ng/mL WOMEN (POSTMEN) 12-210 ng/mL Performed By: #### 2 [id number] #### [facility] [address] [place] [address] Hep Func Panelon 05-03-2020 Albumin [Mass/Vol] 0.8 g/dL Low 1.1-2.2 [facility] Comment on above: Performed By: #### 2 [id number] #### [facility] [address] [place] [address] Albumin [Mass/Vol] 3.1 g/dL Low 3.3-5.0 [facility] Comment on above: Performed By: #### 2 [id number] #### [facility] [address] [place] [address] Globulin (S) [Mass/Vol] 4.1 g/dL High 1.4-4.0 [facility] Comment on above: Performed By: #### 2 [id number] #### [facility] [address] [place] [address] Bilirubin.direct [Mass/Vol] UTC Abnormal 0.1-0.9 [facility] Comment on above: Result Comment: Resu lt verified by Discern Rule. Performed result UTC (Unable to Calculate) was sent as an Alpha code due the inability to calculate a valid numeric value. Performed By: #### 2 [id number] #### [facility] [address] [place] [address] ALP [Catalytic activity/Vol] 107 Int._Unit/L High 21-98 [facility] Comment on above: Performed By: #### 2 [id number] #### [facility] [address] [place] [address] ALT No additional P-5'-P [Catalytic activity/Vol] 13 Int._Unit/L Normal 6-46 [facility] Comment on above: Performed By: #### 2 [id number] #### [facility] [address] [place] [address] AST [Catalytic activity/Vol] 16 Int._Unit/L Normal 5-43 [facility] Comment on above: Performed By: #### 2 [id number] #### [facility] [address] [place] [address] Bilirubin [Mass/Vol] 0.5 mg/dL Normal 0.0-1.1 [facility] Comment on above: Performed By: #### 2 [id number] #### [facility] [address] [place] [address] Bilirubin.direct [Mass/Vol] mg/dL Normal 0.1-0.4 [facility] Comment on above: Performed By: #### 2 [id number] #### [facility] [address] [place] [address] Protein [Mass/Vol] 7.2 g/dL Normal 6.0-7.8 [facility] Comment on above: Performed By: #### 2 [id number] #### [facility] [address] [place] [address] LDHon 05-03-2020 LDH [Catalytic activity/Vol] 268 Int._Unit/L High 93-218 [facility] Comment on above: Performed By: #### 2 [id number] #### [facility] [address] [place] [address] Monitor Recordon 05-03-2020 Monitor Record [id number]# 1.00CD:127 Normal [facility] Monitor Record [id number]# 1.00CD:127 Normal [facility] Monitor Record [id number]# 1.00CD:127 Normal [facility] Monitor Record [id number]# 1.00CD:127 Normal [facility] Progress Note - Pharmacyon 0 05-03-2020 Progress Note - Pharmacy Pharmacy Medication Review - ICU Patients I have personally reviewed this patient's current inpatient medication orders and will communicate any recommendations to the attending physician. IV Antibiotic(s): NO COVID Treatment(s): dexamethasone 6 mg daily (day 6 ) baricitinib 4 mg daily (day 5 ) completed 5 days of remdesivir on 05/02 Mechanically Ventilated: NO Sedation: N/A Continuous Infusion(s): N/A Renal Dose Adjustment: N/A Estimated CrCl: 170 mL/min (SCr 0.6) Adjusted medication(s): All medications are dosed appropriately for renal function at this time Candidate for IV to PO Conversion: YES > 10% weight variance between dosing weight and measured weight? No VTE Prophylaxis: Below the Knee Intermittent Pneumatic Compression Device Ordered by: Isa Solis 04/28/2020 1251 enoxaparin 40 mg/0.4 mL SC Darshana [F] Ordered by: Isa Solis 04/28/2020 1252 Labs: platelets 388, hgb 11.2, hct 34.1 as of 03/02 GI Prophylaxis: Not indicated Normal [facility] Progress Note-Physicianon Progress Note-Physician Basic Informatio n Acute Hypoxia Respiratory Failure - Covid positive History of Present Illness 40 year old female with significant past medical history of asthma since a child reports has an intolerance to albuterol and has been prescribed budesonide, reports that on age she may take this as needed inhaler 1 to 3 times a week dependent on time of year and exposure and does go weeks intermittently without using. She is a reformed smoker (age of 16 - 34) approximately 1 pack a day for 18 years. Quit 6 years ago. Has never had a PFT or evaluation by a Wash Test Checker, followed closely by her family physician. She presents to the [facility] ED with a known positive COVID test. Reports SOB, exertional dyspnea, and found to hypoxic in the ED required initiation of high flow oxygen. CT scan negative for PE, diffuse COVID pneumonia t/o bilateral lung blue. Since admission to the ICU has maintained on Hi nancy. Inflammatory markers have increased. Procal has resulted low suspicion for concurrent bacterial pneumonia. patient is cooperative with care - attempting to side lie and will prone with assistance. Appropriate regimen has been initiated. On interview reports that she feels improved since presentation. Denies loss of taste or smell. Does have nausea and had 2 days of diarrhea prior to admission, dry nonproductive cough. 05/03 patient afebrile overnight, remains on high flow oxygen 40 L / 45%--decreased from 50%. D-dimer trending up 4500, CRP downtrending 5.2, LDH downtrending 268. On exam lung sounds diminished throughout, no wheezes or crackles on my exam. Patient encouraged to utilize incentive spirometry and prone positioning. Objective Vitals & Measurements T: 36.7 ?C (Oral) TMIN: 36.6 ?C (Oral) TMAX: 37.1 ?C (Oral) HR: 64(Monitored) RR: 47 BP: 144/64 SpO2: 87% WT: 126.6 kg Intake & Output This visit (24 hour periods starting at 07:00 EST) 05/03/20 * 05/02/20 05/01/20 Total Summary Intake mL 1.5 251.5 655.5 Output mL -- 1,350 1,450 Fluid Balance 1.5 -1,098.5 -794.5 Intake (4) Oral Intake mL -- -- 400 Sodium Chloride 0.9%, remdesivir mL -- 250 250 dexamethasone mL 1.5 1.5 1.5 ondansetron mL -- -- 4 Total 1.5 251.5 655.5 Output (1) Urine Catheter mL -- 1,350 1,450 Total -- 1,350 1,450 Counts (0) * This column has not completed the indicated time period. Physical Exam General: alert, dyspneic with minimal exertion, remains on high flow Skin: warm, dry Head: no trauma, normocephalic Neck: Trachea midline, no adenopathy, no tenderness Eye: normal conjunctiva, sclera clear ENMT: oral mucosa moist, no pharyngeal erythema or exudate Cardiovascular: regular rate and rhythm, normal peripheral perfusion Respiratory: Lungs diminished t/o all lung blue, respirations non labored at rest - does have exertional dyspnea and desaturation to the mid 80s with minimal activity Chest wall: no deformity. Gastrointestinal: soft, non distended, no tenderness, no guarding. Back: No tenderness, Normal ROM, Normal alignment. Extremities: no deformity, no trauma Neurological: oriented x 4, LOC appropriate for age, motor strength equal & normal bilaterally, sensation equal & normal bilaterally, speech normal Psychiatric: cooperative, affect appropriate for age, normal judgement, normal psychiatric thoughts. Lab Results D-Dimer: 4583 ng/mL Critical (05/03/20 06:32:00) Alk Phos: 107 Int._Unit/L High (05/03/20 06:32:00) ALT: 13 Int._Unit/L (05/03/20 06:32:00) AST: 16 Int._Unit/L (05/03/20 06:32:00) Total Protein: 7.2 gm/dL (05/03/20 06:32:00) Albumin Lvl: 3.1 gm/dL Low (05/03/20 06:32:00) Globulin: 4.1 gm/dL High (05/03/20 06:32:00) A/G Ratio: 0.8 Low (05/03/20 06:32:00) Bili Total: 0.5 mg/dL (05/03/20 06:32:00) Bili Direct: <0.1 (05/03/20 06:32:00) Bili Indirect: Unable to Calculate Abnormal (05/03/20:32:00) CRP: 5.2 mg/dL High (05/03/20 06:32:00) LDH: 268 Int._Unit/L High (05/03/20 06:32:00) Ferritin Lvl: 105 ng/mL (05/03/20:32:00) Glucose Cap: 82 mg/dL (05/03/20 08:10:00) POC Device SN: [id number] (05/03/20 08:10:00) POC User ID: [id number] (05/03/20 08:10:00) POC Username: KERI SOLER (05/03/20 08:10:00) Diagnostic Results Covid positive -on 04/24 Procalcitonin 0.07 on admission [1] Assessment/Plan Acute respiratory failure with hypoxia (J96.01: Acute respiratory failure with hypoxia) Secondary to COVID 19 pneumonia Diagnosed with COVID virus on Apr 24. Presented with subjective fever, SOB and exertional dyspnea, N/D + headache Presents to the ED for further evaluation - hypoxic on r/a - abg with pAo2 of 49 on R/A Initiated on HiFlo support. CT scan obtained negative for PE - however + for diffuse covid 19 penumonia Admitted to the ICU - started on appropriate regimen as follows Pro-Camelia has been assessed and is negative 05/03 patient afebrile overnight, remains on high flow oxygen 40 L / 45%--decreased from 50%. D-dimer trending up 4500, CRP downtrending 5.2, LDH downtrending 268. On exam lung sounds diminished throughout, no wheezes or crackles on my exam. Patient encouraged to utilize incentive spirometry and prone positioning. Slowly improving with current treatment Plan -Continue with remdesivir day 1 04/28 + Barcitinib -Continue with Dexamethasone -Continue to monitor inflammatory markers LFTs and renal indices, -Lovenox for DVT prophylaxis, continue to trend D-dimer -Continued on Hi Nancy -titrate for saturation of 92% and higher -Continue with mobilization and prone positioning (does have desaturation to mid 80's - with recovery in 1 - 2 minutes) -Reports intolerance to Albuterol and does use budesonide inhaler as outpatient. Continue with budesonide- BID Allergic asthma (J45.909: Unspecified asthma, uncomplicated) Since a child - however never assessed by Pulmonology - seasonal and exposure to perfumes provoke asthma Home regimen of Budesonide PRN -was taking 3 - 4 x daily over the past week Pneumonia due to COVID-19 virus (U07.1: COVID-19) Plan as #1 Hyponatremia (E87.1: Hypo-osmolality and hyponatremia) resolved Likely secondary to dehydration d/t bouts of diarrhea Hypertension (I10: Essential (primary) hypertension) -On amlodipine and atenolol Depression with anxiety (F41.8: Other specified anxiety disorders) Morbid obesity due to excess calories (E66.01: Morbid (severe) obesity due to excess calories) No contraindication to deep vein thrombosis (DVT) prophylaxis (Z78.9: Other specified health status) Problem List/Past Medical History Ongoing Anxiety Asthma Chronic GERD Depression with anxiety Headache Hypertension Morbid obesity due to excess calories Morbid obesity with body mass index of 50 or higher Historical No qualifying data Medications Inpatient acetaminophen 325 mg Tab, 650 mg= 2 tab(s), Oral, q6hr, PRN Al hydroxide/Mg hydroxide/simethicone 200 mg-200 mg-20 mg/5 mL oral suspension, 30 mL, Oral, q6hr, PRN amLODIPine 10 mg Tab, 10 mg= 1 tab(s), Oral, Daily atenolol 25 mg Tab, 25 mg= 1 tab(s), Oral, Daily Ativan 0.5 mg Tab, 0.5 mg= 1 tab(s), Oral, BID, PRN baricitinib 2 mg oral tablet, 4 mg= 2 tab(s), Oral, Daily budesonide 0.25 mg/2 mL Inh Susp, 0.25 mg= 2 mL, NEB, BID busPIRone 10 mg Tab, 15 mg= 1.5 tab(s), Oral, TID Cymbalta 60 mg Cap-DR, 60 mg= 1 cap(s), Oral, Daily dexamethasone 4 mg/mL Inj 1 mL, 6 mg= 1.5 mL, IV Push, Daily Dextrose 50% Soln-IV, 40 mL, IV Push, Once, PRN gabapentin 400 mg Cap, 400 mg= 1 cap(s), Oral, TID HumaLOG Sliding Scale, 0-10 Units, SubCutaneous, QIDACHS ibuprofen 800 mg Tab, 800 mg= 1 tab(s), Oral, BID Lovenox 40 mg/0.4 mL SC Darshana, 40 mg= 0.4 mL, SubCutaneous, Daily Milk of Magnesia 8% Susp-Oral, 30 mL, Oral, q6hr, PRN Mucinex 600 mg Tab-ER, 1200 mg= 2 tab(s), Oral, BID remdesivir additive + Sodium Chloride 0.9% intravenous solution 250 mL Zofran 4 mg/2 mL Injection, 4 mg= 2 mL, IV Push, q6hr, PRN Home albuterol 0.083% Inh Darshana 3 mL, 2.5 mg= 3 mL, Inhalation amLODIPine 10 mg Tab, Oral, Daily atenolol 25 mg Tab, Oral, Daily budesonide 90 mcg/inh inhalation powder, 2 puff(s), Inhalation, q4hr busPIRone, 15 mg, Oral, TID cyclobenzaprine, 10 mg, Oral, Daily, Still taking, not as prescribed: per patient takes as needed JRuby duloxetine 60 mg Cap-DR, 1 cap(s), Oral, Daily gabapentin 400 mg Cap, 400 mg= 1 cap(s), Oral, TID ibuprofen 800 mg Tab, Oral, BID Vitamin C, 1tablet, Oral, Daily, Self Directed [1] Progress/SOAP Note; David JAIME-Peggy COLLADO 05/01/2020 13:08 EST Normal [facility] Comment on above: Result Comment: Elec tronically Signed By: Joan Waldrop\.marie\Date and Time Signed: 05/03/20 15:14 EST Progress Note-Physician Assessment/Plan 1. Acute respiratory failure with hypoxia (J96.01: Acute respiratory failure with hypoxia) - PaO2 49 on ABG on RA - on admission - secondary to bilateral covid 19 pneumonia - remdesivir (completed 4 days) - decadron, baricitinib day 6 - budesonide added as per pulmonary - monitor inflammatory markers, LFT - high flow oxygen, titrate for O2 sat greater than 92% - currently on high flow 40 liters and 50%, O2 sat 92% - IS, out of bed to chair TID with meals - reviewed and agree with pulmonary recs Ordered: [facility] Hospital Care/Day Moderate 25 Minutes 54531 2. Allergic asthma (J45.909: Unspecified asthma, uncomplicated) - stable, not in acute exacerbation - budesonide 3. Pneumonia due to COVID-19 virus (U07.1: COVID-19) - as above 4. Hyponatremia (E87.1: Hypo-osmolality and hyponatremia) - stable, stopped IVF, encourage PO intake 5. Hypertension (I10: Essential (primary) hypertension) - stable, stopped IVF, encourage PO intake 6. Chronic GERD (K21.9: Gastro-esophageal reflux disease without esophagitis) - protonix 7. Depression with anxiety (F41.8: Other specified anxiety disorders) - cymbalta, buspar - low dose ativan prn 8. Morbid obesity due to excess calories (E66.01: Morbid (severe) obesity due to excess calories) - BMI 53 - lifestyle modification, outpatient PCP follow up 9. No contraindication to deep vein thrombosis (DVT) prophylaxis (Z78.9: Other specified health status) - SCDs, lovenox Orders: lorazepam, 0.25 mg = 0.5 tab(s), Tab, Oral, Once, Stop date 05/02/20 19:00:00 EST, Routine, Start date 05/02/20 19:00:00 EST lorazepam, Tab, Misc, Once, Stop date 05/02/20 18:40:06 EST, Physician Stop, 05/02/20 18:40:06 EST lorazepam, 0.5 mg = 1 tab(s), Tab, Oral, BID PRN Anxiety, Routine, Start date 05/03/20 8:16:00 EST Patient Specific Meds, Misc, Misc, Once, Stop date 05/03/20 8:02:31 EST, Physician Stop, 05/03/20 8:02:31 EST Sodium Chloride 0.9% intravenous solution, Soln-IV, Misc, Once, Stop date 05/02/20 13:40:20 EST, Physician Stop, 05/02/20 13:40:20 EST C-Reactive Protein Capillary Glucose POC Capillary Glucose POC Capillary Glucose POC Comprehensive Metabolic Panel D-Dimer D-Dimer Extra Lav Tube Ferritin Ferritin Hepatic Function Panel Lactate Dehydrogenase Lactate Dehydrogenase Subjective Pt slept ok, no complaints this morning. still has some sob with minimal exertion. No CP. Taking PO with no nausea or vomiting. Review of Systems Constitutional: No fevers, chills Eye: Negative. Ear/Nose/Mouth/Throat : Negative. Respiratory: sob Cardiovascular: Negative. Gastrointestinal: Negative. Genitourinary: Negative. Immunologic: Negative. Musculoskeletal: Negative. Integumentary: Negative. Neurologic: Negative. Psychiatric: Negative. All other systems are negative Objective Vitals & Measurements T: 37 ?C (Oral) TMIN: 36.6 ?C (Oral) TMAX: 37.1 ?C (Oral) HR: 66(Monitored) RR: 18 BP: 134/69 SpO2: 92% SpO2: 92% WT: 126.6 kg Intake & Output This visit (24 hour periods starting at 07:00 EST) 05/03/20 * 05/02/20 05/01/20 Total Summary Intake mL 361.5 251.5 655.5 Output mL -- 1,350 1,450 Fluid Balance 361.5 -1,098.5 -794.5 Intake (4) Oral Intake mL 360 -- 400 Sodium Chloride 0.9%, remdesivir mL -- 250 250 dexamethasone mL 1.5 1.5 1.5 ondansetron mL -- -- 4 Total 361.5 251.5 655.5 Output (1) Urine Catheter mL -- 1,350 1,450 Total -- 1,350 1,450 Counts (0) * This column has not completed the indicated time period. Physical Exam General: alert, no acute distress ENMT: oral mucosa moist, no pharyngeal erythema or exudate Cardiovascular: regular rate and rhythm, normal peripheral perfusion Respiratory: Lungs rhonci bilaterally, respirations non labored Abdomen: soft, NTND, +BS Skin: warm, dry, intact Extremities: no deformity, no trauma Neurological: LOC appropriate for age, CN II-XII intact, motor strength equal & normal bilaterally, sensation equal & normal bilaterally, speech normal Lab Results D-Dimer: 4583 ng/mL Critical (05/03/20 06:32:00) Alk Phos: 107 Int._Unit/L High (05/03/20 06:32:00) ALT: 13 Int._Unit/L (05/03/20 06:32:00) AST: 16 Int._Unit/L (05/03/20 06:32:00) Total Protein: 7.2 gm/dL (05/03/20 06:32:00) Albumin Lvl: 3.1 gm/dL Low (05/03/20 06:32:00) Globulin: 4.1 gm/dL High (05/03/20 06:32:00) A/G Ratio: 0.8 Low (05/03/20 06:32:00) Bili Total: 0.5 mg/dL (05/03/20 06:32:00) Bili Direct: <0.1 (05/03/20 06:32:00) Bili Indirect: Unable to Calculate Abnormal (05/03/20 06:32:00) CRP: 5.2 mg/dL High (05/03/20 06:32:00) LDH: 268 Int._Unit/L High (05/03/20 06:32:00) Glucose Cap: 82 mg/dL (05/03/20 08:10:00) POC Device SN: [id number] (05/03/20 08:10:00) POC User ID: [id number] (05/03/20 08:10:00) POC Username: RYDER KERI (05/03/20 08:10:00) Problem List/Past Medical History Ongoing Anxiety Asthma Chronic GERD Depression with anxiety Headache Hypertension Morbid obesity due to excess calories Morbid obesity with body mass index of 50 or higher Historical No qualifying data Medications Inpatient acetaminophen 325 mg Tab, 650 mg= 2 tab(s), Oral, q6hr, PRN Al hydroxide/Mg hydroxide/simethicone 200 mg-200 mg-20 mg/5 mL oral suspension, 30 mL, Oral, q6hr, PRN amLODIPine 10 mg Tab, 10 mg= 1 tab(s), Oral, Daily atenolol 25 mg Tab, 25 mg= 1 tab(s), Oral, Daily Ativan 0.5 mg Tab, 0.5 mg= 1 tab(s), Oral, BID, PRN baricitinib 2 mg oral tablet, 4 mg= 2 tab(s), Oral, Daily budesonide 0.25 mg/2 mL Inh Susp, 0.25 mg= 2 mL, NEB, BID busPIRone 10 mg Tab, 15 mg= 1.5 tab(s), Oral, TID Cymbalta 60 mg Cap-DR, 60 mg= 1 cap(s), Oral, Daily dexamethasone 4 mg/mL Inj 1 mL, 6 mg= 1.5 mL, IV Push, Daily Dextrose 50% Soln-IV, 40 mL, IV Push, Once, PRN gabapentin 400 mg Cap, 400 mg= 1 cap(s), Oral, TID HumaLOG Sliding Scale, 0-10 Units, SubCutaneous, QIDACHS ibuprofen 800 mg Tab, 800 mg= 1 tab(s), Oral, BID Lovenox 40 mg/0.4 mL SC Darshana, 40 mg= 0.4 mL, SubCutaneous, Daily Milk of Magnesia 8% Susp-Oral, 30 mL, Oral, q6hr, PRN Mucinex 600 mg Tab-ER, 1200 mg= 2 tab(s), Oral, BID remdesivir additive + Sodium Chloride 0.9% intravenous solution 250 mL Zofran 4 mg/2 mL Injection, 4 mg= 2 mL, IV Push, q6hr, PRN Home albuterol 0.083% Inh Darshana 3 mL, 2.5 mg= 3 mL, Inhalation amLODIPine 10 mg Tab, Oral, Daily atenolol 25 mg Tab, Oral, Daily budesonide 90 mcg/inh inhalation powder, 2 puff(s), Inhalation, q4hr busPIRone, 15 mg, Oral, TID cyclobenzaprine, 10 mg, Oral, Daily, Still taking, not as prescribed: per patient takes as needed JRuby duloxetine 60 mg Cap-DR, 1 cap(s), Oral, Daily gabapentin 400 mg Cap, 400 mg= 1 cap(s), Oral, TID ibuprofen 800 mg Tab, Oral, BID Vitamin C, 1tablet, Oral, Daily, Self Directed Normal [facility] Comment on above: Result Comment: Elec tronically Signed By: CAITLIN WALTON, Isa\.br\Date and Time Signed: 05/03/20 09:55 EST Auto Diffon 05-02-2020 Basophils/100 WBC (Bld) 0.2 % Normal 0.0-2.0 [facility] Comment on above: Order Comment: Order Added by Discern Expert. Performed By: #### 2 481298, 9878962, 9750908, 05578502, 7648961, 1047877, 4043032, 1923962 ####[address] [place] [address] Basophils/Leukocytes Auto (Bld) [Pure # fraction] 0.0 E9/L Normal 0.0-0.2 [facility] Comment on above: Order Comment: Order Added by Discern Expert. Performed By: #### 2 058469, 5989321, 0206838, 06699853, 3739716, 1603501, 9785532, 7535300 ####[address] [address] Eosinophils/100 WBC (Bld) 0.1 % Normal 0.0-8.0 [facility] Comment on above: Order Comment: Order Added by Discern Expert. Performed By: #### 2 543322, 6012822, 2508220, 07731576, 4639200, 3168339, 6236906, 9077147 ####[address] [address] Eosinophils/Leukocytes Auto (Bld) [Pure # fraction] 0.0 E9/L Normal 0.0-0.5 [facility] Comment on above: Order Comment: Order Added by Discern Expert. Performed By: #### 2 011927, 9344151, 2323540, 82952504, 9183303, 9326456, 6996872, 9050760 ####[address] [place] [address] Lymphocytes/100 WBC (Bld) 18.3 % Normal 14.0-50.0 [facility] Comment on above: Order Comment: Order Added by Discern Expert. Performed By: #### 2 405651, 7625088, 1126672, 02251098, 8827750, 5988083, 1585935, 3520565 ####[address] [place] [address] Lymphocytes/Leukocytes Auto (Bld) [Pure # fraction] 1.7 E9/L Normal 1.0-4.0 [facility] Comment on above: Order Comment: Order Added by Kala Expert. Performed By: #### 2 097015, 7009311, 6001323, 02513655, 5938547, 1194486, 9513572, 5845341 ####[facility] [address] [place] [address] Monocytes/100 WBC (Bld) 5.4 % Normal 4.0-14.0 [facility] Comment on above: Order Comment: Order Added by Discern Expert. Performed By: #### 2 577311, 7620200, 3291061, 09427313, 2611548, 1000966, 9355235, 1680745 ####[address] [place] [address] Monocytes/Leukocytes Auto (Bld) [Pure # fraction] 0.5 E9/L Normal 0.2-1.0 [facility] Comment on above: Order Comment: Order Added by Kala Expert. Performed By: #### 2 290095, 9015050, 1193657, 28555229, 6877555, 4626193, 3523421, 7262642 ####[address] [place] [address] Neutrophils/100 WBC (Bld) 76.0 % High 36.0-75.0 [facility] Comment on above: Order Comment: Order Added by Kala Expert. Performed By: #### 2 416385, 3208329, 6203028, 97275651, 3053308, 2770355, 4722731, 4932705 ####[facility] [address] [place] [address] Neutrophils/Leukocytes Auto (Bld) [Pure # fraction] 6.9 E9/L Normal 2.0-7.5 [facility] Comment on above: Order Comment: Order Added by Kala Expert. Performed By: #### 2 097044, 6472287, 3173543, 03637970, 6813819, 4516226, 9173922, 1211019 ####[address] [address] CBC w/ Auto Diffon 1 Erythrocyte distribution width (RBC) [Ratio] 16.7 % High 10.9-14.2 [facility] Comment on above: Performed By: #### 2 922248, 8852013, 4698157, 46099993, 0734442, 3212641, 3082949, 2255739 ####[facility] [address] [place] [address] Hematocrit (Bld) [Volume fraction] 34.1 % Normal 34.0-46.0 [facility] Comment on above: Performed By: #### 2 881595, 4662553, 6884426, 89240155, 3946804, 4562884, 1182623, 1319840 ####[facility] [address] [place] [address] Hemoglobin (Bld) [Mass/Vol] 11.2 g/dL Low 12.0-16.0 [facility] Comment on above: Performed By: #### 2 157958, 3290628, 0181877, 37896268, 6751286, 6704875, 3051099, 8844508 ####[facility] [address] [place] [address] MCH (RBC) [Entitic mass] 25.5 pg Low 27.0-34.0 [facility] Comment on above: Performed By: #### 2 671553, 5016864, 1221877, 81844874, 8317244, 3761227, 8566113, 9421325 ####[facility] [address] [place] [address] MCHC (RBC) [Mass/Vol] 33.0 g/dL Normal 31.4-36.0 [facility] Comment on above: Performed By: #### 2 690556, 3360171, 1061344, 18865418, 1825861, 2583936, 3701746, 4948773 ####[address] [place] [address] MCV (RBC) [Entitic vol] 77.4 fL Low 80.0-100.0 [facility] Comment on above: Performed By: #### 2 747190, 6017458, 6940824, 75783513, 1368995, 6807228, 3987092, 5699830 ####[facility] [address] [place] [address] Platelet mean volume (Bld) [Entitic vol] 7.2 fL Normal 6.4-10.8 [facility] Comment on above: Performed By: #### 2 619087, 6530691, 1956004, 40793570, 0972222, 4804954, 0810469, 6399636 ####[facility] [address] [place] [address] Platelets (Bld) [#/Vol] 388.0 E9/L Normal 150.0-500.0 [facility] Comment on above: Performed By: #### 2 629832, 4561315, 7291134, 94710528, 1253203, 5436792, 6042685, 5668127 ####[facility] [address] [place] [address] RBC (Bld) [#/Vol] 4.4 E12/L Normal 4.3-5.9 [facility] Comment on above: Performed By: #### 2 789952, 5968816, 5221860, 26455430, 2308151, 2218704, 1140474, 0623906 ####[facility] [address] [place] [address] WBC corrected for nucl RBC Auto (Bld) [#/Vol] 9.1 E9/L Normal 4.0-11.0 [facility] Comment on above: Performed By: #### 2 021543, 9211065, 3604509, 22567413, 1924295, 6319982, 2800342, 4206230 ####[address] [place] [address] CMPon 05-02-2020 Albumin [Mass/Vol] 3.0 g/dL Low 3.3-5.0 [facility] Comment on above: Performed By: #### 2 622411, 7524718, 5705529, 31104269, 2175015, 1784110, 2377115, 3031373 ####[address] [place] [address] Albumin [Mass/Vol] 0.7 g/dL Low 1.1-2.2 [facility] Comment on above: Performed By: #### 2 679231, 9762863, 0806751, 87724427, 2466685, 0793395, 9916165, 1778783 ####[facility] [address] [place] [address] ALP [Catalytic activity/Vol] 104 Int._Unit/L High 21-98 [facility] Comment on above: Performed By: #### 2 899778, 2786553, 0268491, 71575109, 9752213, 1749712, 8354674, 4795052 ####[address] [address] ALT No additional P-5'-P [Catalytic activity/Vol] 14 Int._Unit/L Normal 6-46 [facility] Comment on above: Performed By: #### 2 693418, 7157334, 0560261, 89159867, 0609961, 9580928, 8584166, 7031112 ####[address] [place] [address] Anion gap [Moles/Vol] 12 mmol/L Normal 6-16 [facility] Comment on above: Performed By: #### 2 390437, 5398678, 4581709, 81101388, 7784070, 5451903, 4170371, 2808798 ####[address] [place] [address] AST [Catalytic activity/Vol] 17 Int._Unit/L Normal 5-43 [facility] Comment on above: Performed By: #### 2 650579, 8859351, 1176261, 22092228, 7348805, 1230553, 3825911, 3208195 ####[facility] [address] [place] [address] Bilirubin [Mass/Vol] 0.3 mg/dL Normal 0.0-1.1 [facility] Comment on above: Performed By: #### 2 013089, 5180392, 8095232, 78084426, 1566368, 7979319, 3693557, 6176274 ####[facility] [address] [place] [address] Calcium [Mass/Vol] 8.5 mg/dL Low 8.9-11.1 [facility] Comment on above: Performed By: #### 2 069577, 0401670, 7614303, 35936182, 6402669, 7230479, 2115560, 7629341 ####[facility] [address] [place] [address] Chloride [Moles/Vol] 102 mmol/L Normal 101-111 [facility] Comment on above: Performed By: #### 2 384996, 5594118, 1541461, 96393842, 4293110, 7417104, 6767201, 7782225 ####[facility] [address] [place] [address] CO2 [Moles/Vol] 26 mmol/L Normal 21-31 [facility] Comment on above: Performed By: #### 2 202392, 5975984, 2555739, 03309248, 5618955, 7465904, 6414698, 7626729 ####[facility] [address] [place] [address] Creatinine [Mass/Vol] 0.6 mg/dL Normal 0.5-1.3 [facility] Comment on above: Performed By: #### 2 453522, 7023091, 4109844, 98864875, 7748636, 5050095, 1987748, 2241845 ####[facility] [address] [place] [address] Globulin (S) [Mass/Vol] 4.2 g/dL High 1.4-4.0 [facility] Comment on above: Performed By: #### 2 638641, 1257051, 2890877, 74949439, 5049067, 7198991, 4698835, 8460216 ####[facility] [address] [place] [address] Glucose [Mass/Vol] 128 mg/dL Normal 55-199 [facility] Comment on above: Result Comment: If t his glucose result represents a fasting glucose, interpretation should refer to the following reference range: 55-99 mg/dL Performed By: #### 2 836278, 5761704, 5556408, 53858288, 2247298, 2230643, 5910648, 0117873 ####[facility] [address] [place] [address] Potassium [Moles/Vol] 4.1 mmol/L Normal 3.5-5.3 [facility] Comment on above: Performed By: #### 2 678523, 0410940, 7741548, 27131115, 2459957, 9882869, 8273404, 6424381 ####[facility] [address] [place] [address] Protein [Mass/Vol] 7.2 g/dL Normal 6.0-7.8 [facility] Comment on above: Performed By: #### 2 245179, 3709753, 6637245, 93830844, 4388638, 0247622, 8719443, 7743329 ####[facility] [address] [place] [address] Sodium [Moles/Vol] 136 mmol/L Normal 135-145 [facility] Comment on above: Performed By: #### 2 481105, 4190099, 2958782, 77655937, 0113911, 4989654, 1612602, 3011818 ####[facility] [address] [place] [address] Urea nitrogen [Mass/Vol] 17 mg/dL Normal 5-21 [facility] Comment on above: Performed By: #### 2 947649, 8000319, 6068280, 48310034, 5789749, 1033923, 5341813, 0035105 ####[facility] [address] [place] [address] Urea nitrogen/Creatinine [Mass ratio] 28 No Units High 10-20 [facility] Comment on above: Performed By: #### 2 390885, 7762601, 0647432, 96583031, 7838593, 0617337, 7567041, 4344077 ####[facility] [address] [place] [address] CRPon 05-02-2020 CRP [Mass/Vol] 6.3 mg/dL High <=1.9 [facility] Comment on above: Performed By: #### 2 448237, 7882885, 4977483, 86070334, 0966065, 4709041, 9449251, 0345094 ####[facility] [address] [place] [address] Capillary Glucose POCon Glucose [Mass/Vol] 222 mg/dL High 55-99 [facility] Comment on above: Result Comment: Jamila shelton Meter Insulin Started Performed By: #### 2 36703140 ####[facility] [address] [place] [address] Glucose [Mass/Vol] 191 mg/dL High 55-99 [facility] Comment on above: Result Comment: Repe at Test Performed By: #### 1 3528060, 2108843, 8153678 #### [facility] [address] [place] [address] Glucose [Mass/Vol] 99 mg/dL Normal 55-99 [facility] Comment on above: Result Comment: Willy khan RN/ Performed By: #### 2 19583549 #### [facility] [address] [place] [address] D-Dimeron 05-02-2020 Fibrin D-dimer FEU (PPP) [Mass/Vol] 2647 ng/mL Abnormal 215-500 [facility] Comment on above: Result Comment: Resu lts Called To Anup Novoa (ICU) By SS And Read Back For Confirmation On 05/02/2020 08:06:02 EST Results Verified By Repeat Analysis. This D-Dimer assay may be used in conjunction with a non-high clinical pretest probability assessment to exclude deep-vein thrombosis(DVT). For exclusion of venous thrombosis or pulmonary embolism the analyte D-Dimer should not be used as an aid in patients with: Therapeutic dose anticoagulant therapy for >24 hours Fibrinolytic therapy within previous 7 days Trauma or surgery within previous 4 weeks Disseminated malignacies Aortic aneurysm Sepsis, severe infections, pneumonia, severe skin infections Liver cirrhosis Performed By: #### 2 831031, 3574182, 5906916, 77488759, 1077499, 4418992, 8672935, 7202873 ####[facility] [address] [place] [address] Ferritinon 05-02-2020 Ferritin [Mass/Vol] 90 ng/mL Normal [address] [facility] Comment on above: Result Comment: NORM ALS MEN <30 YRS 16-132 ng/mL MEN >30 YRS 8-338 ng/mL WOMEN (PREMEN) 6-104 ng/mL WOMEN (POSTMEN) 12-210 ng/mL Performed By: #### 2 546721, 8739418, 8935193, 40658851, 0977435, 3955167, 7289710, 3980369 ####[facility] [address] [place] [address] Interdisciplinary Note - Jose e Manageron 05-02-2020 Interdisciplinary Note - Cell Stripper CRM called ICU and spoke with FAVIO House as patient did not answer phone. She states patient is proning now and remains on high flow oxygen. CRM spoke with DR Tucker who saw patient earlier and patient will remain in ICU and wait pulmonology. CRM called Richie Sullivan [phone] S.O and updated him and he will call her son and update him. Discussed not sure how long will be in ICU or hospital. Normal [facility] Comment on above: Result Comment: Elec tronically Signed By: Abel STAHL, Chelsy\.br\Date and Time Signed: 05/02/20 15:11 EST LDHon 01-08-2021 LDH [Catalytic activity/Vol] 285 Int._Unit/L High 93-218 [facility] Comment on above: Performed By: #### 2 994918, 1878666, 6751136, 34683947, 5223422, 3424438, 7823605, 4814022 ####[facility] [address] [place] [address] Monitor Recordon 05-02-2020 Monitor Record [id number]# 1.00CD:127 Normal [facility] Monitor Record [id number]# 1.00CD:127 Normal [facility] Monitor Record [id number]# 1.00CD:127 Normal [facility] Progress Note - Pharmacyon 0 05-02-2020 Progress Note - Pharmacy Pharmacy Medication Review - ICU Patients I have personally reviewed this patient's current inpatient medication orders and will communicate any recommendations to the attending physician. IV antibiotic(s): Yes Day of therapy: remdesivir day 5 Mechanically ventilated: No Sedation: n/a Continuous infusion(s): No Renal dose adjustment: No Estimated CrCl: 170 mL/min Adjusted medications: Candidate for IV to PO conversion: n/a Need for PO/OG/Gtube conversion?no Need for modification of dosing weight vs. measured weight (>10% variance)? no VTE Prophylaxis: Below the Knee Intermittent Pneumatic Compression Device Ordered by: Isa Solis 04/28/2020 1251 enoxaparin 40 mg/0.4 mL SC Darshana [F] Ordered by: Isa Solis 04/28/2020 1252 Labs: ADMISSION LAB WORK 05/02/20 05:37 eGFR: >60 mL/min/1.73 m2 05/02/20 05:37 eGFR: >60 mL/min/1.73 m2 05/02/20 05:37 Neutro Auto: 76.0 % 05/02/20 05:37 Neutro Auto: 76.0 % 05/02/20 05:37 Lymph Auto: 18.3 % 05/02/20 05:37 Lymph Auto: 18.3 % 05/02/20 05:37 [place] Auto: 5.4 % 05/02/20 05:37 [place] Auto: 5.4 % 05/02/20 05:37 Eos Auto: 0.1 % 05/02/20 05:37 Eos Auto: 0.1 % 05/02/20 05:37 Basophil Auto: 0.2 % 05/02/20 05:37 Basophil Auto: 0.2 % 05/02/20 05:37 Neutro Absolute: 6.9 E9/L 05/02/20 05:37 Lymph Absolute: 1.7 E9/L 05/02/20 05:37 [place] Absolute: 0.5 E9/L 05/02/20 05:37 Eos Absolute: 0.0 E9/L 05/02/20 05:37 Basophil Absolute: 0.0 E9/L 05/02/20 05:37 eGFR AA: >60 mL/min/1.73 m2 05/02/20 05:37 eGFR AA: >60 mL/min/1.73 m2 05/02/20 05:37 WBC: 9.1 E9/L 05/02/20 05:37 WBC: 9.1 E9/L 05/02/20 05:37 RBC: 4.4 E12/L 05/02/20 05:37 RBC: 4.4 E12/L 05/02/20 05:37 Hgb: 11.2 gm/dL 05/02/20 05:37 Hgb: 11.2 gm/dL 05/02/20 05:37 Hct: 34.1 % 05/02/20 05:37 Hct: 34.1 % 05/02/20 05:37 RDW: 16.7 % 05/02/20 05:37 MCH: 25.5 pg 05/02/20 05:37 MCHC: 33.0 gm/dL 05/02/20 05:37 MCV: 77.4 fL 05/02/20 05:37 MPV: 7.2 fL 05/02/20 05:37 Platelet: 388.0 E9/L 05/02/20 05:37 BUN: 17 mg/dL 05/02/20 05:37 BUN: 17 mg/dL 05/02/20 05:37 BUN: 17 mg/dL 05/02/20 05:37 Creatinine: 0.6 mg/dL 05/02/20 05:37 Creatinine: 0.6 mg/dL 05/02/20 05:37 Creatinine: 0.6 mg/dL 05/02/20 05:37 Sodium Lvl: 136 mmol/L 05/02/20 05:37 Sodium Lvl: 136 mmol/L 05/02/20 05:37 Sodium Lvl: 136 mmol/L 05/02/20 05:37 Potassium Lvl: 4.1 mmol/L 05/02/20 05:37 Potassium Lvl: 4.1 mmol/L 05/02/20 05:37 Potassium Lvl: 4.1 mmol/L 05/02/20 05:37 Chloride: 102 mmol/L 05/02/20 05:37 Chloride: 102 mmol/L 05/02/20 05:37 Chloride: 102 mmol/L 05/02/20 05:37 CO2: 26 mmol/L 05/02/20 05:37 CO2: 26 mmol/L 05/02/20 05:37 CO2: 26 mmol/L 05/02/20 05:37 AGAP: 12 mEq/L 05/02/20 05:37 AGAP: 12 mEq/L 05/02/20 05:37 AGAP: 12 mEq/L 05/02/20 05:37 BUN/Creat Ratio: 05/02/20 05:37 BUN/Creat Ratio: 05/02/20 05:37 Calcium Lvl: 8.5 mg/dL 05/02/20 05:37 Calcium Lvl: 8.5 mg/dL 05/02/20 05:37 Calcium Lvl: 8.5 mg/dL 05/02/20 05:37 ALT: 14 Int._Unit/L 05/02/20 05:37 ALT: 14 Int._Unit/L 05/02/20 05:37 ALT: 14 Int._Unit/L 05/02/20 05:37 AST: 17 Int._Unit/L 05/02/20 05:37 AST: 17 Int._Unit/L 05/02/20 05:37 AST: 17 Int._Unit/L 05/02/20 05:37 Albumin Lvl: 3.0 gm/dL 05/02/20 05:37 Albumin Lvl: 3.0 gm/dL 05/02/20 05:37 Alk Phos: 104 Int._Unit/L 05/02/20 05:37 Alk Phos: 104 Int._Unit/L 05/02/20 05:37 Alk Phos: 104 Int._Unit/L 05/02/20 05:37 Bili Total: 0.3 mg/dL 05/02/20 05:37 Bili Total: 0.3 mg/dL 05/02/20 05:37 Total Protein: 7.2 gm/dL 05/02/20 05:37 Total Protein: 7.2 gm/dL 05/02/20 05:37 Globulin: 4.2 gm/dL 05/02/20 05:37 Globulin: 4.2 gm/dL 05/02/20 05:37 A/G Ratio: 0.7 05/02/20 05:37 A/G Ratio: 0.7 05/02/20 05:37 Glucose Lvl: 128 mg/dL 05/02/20 05:37 Glucose Lvl: 128 mg/dL 05/02/20 05:37 Glucose Lvl: 128 mg/dL 05/02/20 05:37 CRP: 6.3 mg/dL 05/02/20 05:37 CRP: 6.3 mg/dL 05/02/20 05:37 LDH: 285 Int._Unit/L 05/02/20 05:37 LDH: 285 Int._Unit/L 05/02/20 05:37 LDH: 285 Int._Unit/L [facility] Progress Note-Physicianon Progress Note-Physician Assessment/Plan 1. Acute respiratory failure with hypoxia (J96.01: Acute respiratory failure with hypoxia) - PaO2 49 on ABG on RA - on admission - secondary to bilateral covid 19 pneumonia - remdesivir, decadron, baricitinib day 5 - budesonide added as per pulmonary - monitor inflammatory markers, LFT - high flow oxygen, titrate for O2 sat greater than 92% - currently on high flow 50 liters and 50%, O2 sat 89-90% - IS, out of bed to chair TID with meals - d/w pulmonary Ordered: Sbsq Hospital Care/Day Moderate 25 Minutes 70440 2. Allergic asthma (J45.909: Unspecified asthma, uncomplicated) - stable, not in acute exacerbation - budesonide 3. Pneumonia due to COVID-19 virus (U07.1: COVID-19) - as above 4. Hyponatremia (E87.1: Hypo-osmolality and hyponatremia) - stable, stopped IVF, encourage PO intake 5. Hypertension (I10: Essential (primary) hypertension) - stable, stopped IVF, encourage PO intake 6. Chronic GERD (K21.9: Gastro-esophageal reflux disease without esophagitis) - protonix 7. Depression with anxiety (F41.8: Other specified anxiety disorders) - lindsey lu 8. Morbid obesity due to excess calories (E66.01: Morbid (severe) obesity due to excess calories) - BMI 53 - lifestyle modification, outpatient PCP follow up 9. No contraindication to deep vein thrombosis (DVT) prophylaxis (Z78.9: Other specified health status) - SCDs, lovenox Orders: lorazepam, 0.5 mg = 1 tab(s), Tab, Oral, Once, Stop date 05/02/20 9:00:00 EST, Routine, Start date 05/02/20 9:00:00 EST lorazepam, Tab, Misc, Once, Stop date 05/02/20 8:44:07 EST, Physician Stop, 05/02/20 8:44:07 EST Sodium Chloride 0.9% intravenous solution, Soln-IV, Misc, Once, Stop date 05/02/20 13:40:20 EST, Physician Stop, 05/02/20 13:40:20 EST C-Reactive Protein Capillary Glucose POC Capillary Glucose POC Capillary Glucose POC D-Dimer Ferritin Hepatic Function Panel Lactate Dehydrogenase Subjective Pt still has significant sob with exertion. slept ok overnight some anxiety this morning. no CP. No nausea or vomiting. Review of Systems Constitutional: No fevers, chills Eye: Negative. Ear/Nose/Mouth/Throat : Negative. Respiratory: sob Cardiovascular: Negative. Gastrointestinal: Negative. Genitourinary: Negative. Immunologic: Negative. Musculoskeletal: Negative. Integumentary: Negative. Neurologic: Negative. Psychiatric: Negative. All other systems are negative Objective Vitals & Measurements T: 36.8 ?C (Oral) TMIN: 36.6 ?C (Oral) TMAX: 37.1 ?C (Oral) HR: 62(Monitored) RR: 25 BP: 129/70 SpO2: 95% Intake & Output This visit (24 hour periods starting at 07:00 EST) 05/02/20 * 05/01/20 04/30/20 Total Summary Intake mL 251.5 655.5 651.5 Output mL 700 1,450 1,950 Fluid Balance -448.5 -794.5 -1,298.5 Intake (4) Oral Intake mL -- 400 400 Sodium Chloride 0.9%, remdesivir mL 250 250 250 dexamethasone mL 1.5 1.5 1.5 ondansetron mL -- 4 -- Total 251.5 655.5 651.5 Output (2) Urine Catheter mL 700 1,450 1,750 Urine Output Initial mL -- -- 200 Total 700 1,450 1,950 Counts (0) * This column has not completed the indicated time period. Physical Exam General: alert, no acute distress ENMT: oral mucosa moist, no pharyngeal erythema or exudate Cardiovascular: regular rate and rhythm, normal peripheral perfusion Respiratory: Lungs rhonci bilaterally, respirations non labored Abdomen: soft, NTND, +BS Skin: warm, dry, intact Extremities: no deformity, no trauma Neurological: LOC appropriate for age, CN II-XII intact, motor strength equal & normal bilaterally, sensation equal & normal bilaterally, speech normal Lab Results WBC: 9.1 E9/L (05/02/20 05:37:00) RBC: 4.4 E12/L (05/02/20 05:37:00) Hgb: 11.2 gm/dL Low (05/02/20 05:37:00) Hct: 34.1 % (05/02/20 05:37:00) MCV: 77.4 fL Low (05/02/20 05:37:00) MCH: 25.5 pg Low (05/02/20 05:37:00) MCHC: 33 gm/dL (05/02/20 05:37:00) RDW: 16.7 % High (05/02/20 05:37:00) Platelet: 388 E9/L (05/02/20 05:37:00) MPV: 7.2 fL (05/02/20 05:37:00) Neutro Auto: 76 % High (05/02/20 05:37:00) Lymph Auto: 18.3 % (05/02/20 05:37:00) [place] Auto: 5.4 % (05/02/20 05:37:00) Eos Auto: 0.1 % (05/02/20 05:37:00) Basophil Auto: 0.2 % (05/02/20 05:37:00) Neutro Absolute: 6.9 E9/L (05/02/20 05:37:00) Lymph Absolute: 1.7 E9/L (05/02/20 05:37:00) [place] Absolute: 0.5 E9/L (05/02/20 05:37:00) Eos Absolute: 0 E9/L (05/02/20 05:37:00) Basophil Absolute: 0 E9/L (05/02/20 05:37:00) D-Dimer: 2647 ng/mL Critical (05/02/20 05:37:00) Glucose Lvl: 128 mg/dL (05/02/20 05:37:00) BUN: 17 mg/dL (05/02/20 05:37:00) Creatinine: 0.6 mg/dL (05/02/20 05:37:00) eGFR: >60 (05/02/20 05:37:00) eGFR AA: >60 (05/02/20 05:37:00) BUN/Creat Ratio: 28 High (05/02/20 05:37:00) Sodium Lvl: 136 mmol/L (05/02/20 05:37:00) Potassium Lvl: 4.1 mmol/L (05/02/20 05:37:00) Chloride: 102 mmol/L (05/02/20 05:37:00) CO2: 26 mmol/L (05/02/20 05:37:00) AGAP: 12 mEq/L (05/02/20 05:37:00) Calcium Lvl: 8.5 mg/dL Low (05/02/20 05:37:00) Alk Phos: 104 Int._Unit/L High (05/02/20 05:37:00) ALT: 14 Int._Unit/L (05/02/20 05:37:00) AST: 17 Int._Unit/L (05/02/20 05:37:00) Total Protein: 7.2 gm/dL (05/02/20 05:37:00) Albumin Lvl: 3 gm/dL Low (05/02/20 05:37:00) Globulin: 4.2 gm/dL High (05/02/20 05:37:00) A/G Ratio: 0.7 Low (05/02/20 05:37:00) Bili Total: 0.3 mg/dL (05/02/20 05:37:00) CRP: 6.3 mg/dL High (05/02/20 05:37:00) LDH: 285 Int._Unit/L High (05/02/20 05:37:00) Ferritin Lvl: 90 ng/mL (05/02/20 05:37:00) Glucose Cap: 191 mg/dL High (05/02/20 18:09:00) POC Device SN: [id number] (05/02/20 18:09:00) POC User ID: [id number] (05/02/20 18:09:00) POC Username: HECTOR WEST (05/02/20 18:09:00) Problem List/Past Medical History Ongoing Anxiety Asthma Chronic GERD Depression with anxiety Headache Hypertension Morbid obesity due to excess calories Morbid obesity with body mass index of 50 or higher Historical No qualifying data Medications Inpatient acetaminophen 325 mg Tab, 650 mg= 2 tab(s), Oral, q6hr, PRN Al hydroxide/Mg hydroxide/simethicone 200 mg-200 mg-20 mg/5 mL oral suspension, 30 mL, Oral, q6hr, PRN amLODIPine 10 mg Tab, 10 mg= 1 tab(s), Oral, Daily atenolol 25 mg Tab, 25 mg= 1 tab(s), Oral, Daily baricitinib 2 mg oral tablet, 4 mg= 2 tab(s), Oral, Daily budesonide 0.25 mg/2 mL Inh Susp, 0.25 mg= 2 mL, NEB, BID busPIRone 10 mg Tab, 15 mg= 1.5 tab(s), Oral, TID Cymbalta 60 mg Cap-DR, 60 mg= 1 cap(s), Oral, Daily dexamethasone 4 mg/mL Inj 1 mL, 6 mg= 1.5 mL, IV Push, Daily Dextrose 50% Soln-IV, 40 mL, IV Push, Once, PRN gabapentin 400 mg Cap, 400 mg= 1 cap(s), Oral, TID HumaLOG Sliding Scale, 0-10 Units, SubCutaneous, QIDACHS ibuprofen 800 mg Tab, 800 mg= 1 tab(s), Oral, BID Lovenox 40 mg/0.4 mL SC Darshana, 40 mg= 0.4 mL, SubCutaneous, Daily Milk of Magnesia 8% Susp-Oral, 30 mL, Oral, q6hr, PRN Mucinex 600 mg Tab-ER, 1200 mg= 2 tab(s), Oral, BID remdesivir additive + Sodium Chloride 0.9% intravenous solution 250 mL Zofran 4 mg/2 mL Injection, 4 mg= 2 mL, IV Push, q6hr, PRN Home albuterol 0.083% Inh Darshana 3 mL, 2.5 mg= 3 mL, Inhalation amLODIPine 10 mg Tab, Oral, Daily atenolol 25 mg Tab, Oral, Daily budesonide 90 mcg/inh inhalation powder, 2 puff(s), Inhalation, q4hr busPIRone, 15 mg, Oral, TID cyclobenzaprine, 10 mg, Oral, Daily, Still taking, not as prescribed: per patient takes as needed JRuby duloxetine 60 mg Cap-DR, 1 cap(s), Oral, Daily gabapentin 400 mg Cap, 400 mg= 1 cap(s), Oral, TID ibuprofen 800 mg Tab, Oral, BID predniSONE 20 mg Tab, 20 mg= 1 tab(s), Oral, As Directed, Not taking: per patient she still has to pick this medication up from the pharmacy JRuby Vitamin C, 1tablet, Oral, Daily, Self Directed [facility] Comment on above: Result Comment: Elec tronically Signed By: CAITLIN WALTON, Isa\.br\Date and Time Signed: 05/02/20 18:40 EST Progress Note-Physician Subjective Remains critically ill on requiring high oxygen flow at 50% oxygen with 50 L but clinically reports an improvement in her symptoms. Quite compliant with positional therapy and has been proning frequently throughout the day. Denies chest pain or abdominal pain. Review of Systems Constitutional: no fever, no chills, no sweats Respiratory: as per HPI Cardiovascular: no chest pain, no palpitations, no edema Gastrointestinal: no nausea, no vomiting, no diarrhea, no GI bleeding Genitourinary: no dysuria, no hematuria, no discharge, no pain Musculoskeletal: no back pain, no trauma Neurologic: no headache, no dizziness, no numbness, no weakness Heme/Lymph: no bleeding tendency, no bruising tendency, no petechiae, no swollen nodes Additional ROS info: Except as noted in the above Review of Systems and in the History of Present Illness all other systems have been reviewed and are negative or noncontributory. Objective Vitals & Measurements T: 36.8 ?C (Oral) TMIN: 36.8 ?C (Oral) TMAX: 37.1 ?C (Oral) HR: 69(Monitored) RR: 32 BP: 107/58 SpO2: 93% Intake & Output This visit (24 hour periods starting at 07:00 EST) 05/02/20 * 05/01/20 04/30/20 Total Summary Intake mL 251.5 655.5 651.5 Output mL -- 1,450 1,950 Fluid Balance 251.5 -794.5 -1,298.5 Intake (4) Oral Intake mL -- 400 400 Sodium Chloride 0.9%, remdesivir mL 250 250 250 dexamethasone mL 1.5 1.5 1.5 ondansetron mL -- 4 -- Total 251.5 655.5 651.5 Output (2) Urine Catheter mL -- 1,450 1,750 Urine Output Initial mL -- -- 200 Total -- 1,450 1,950 Counts (0) * This column has not completed the indicated time period. Physical Exam General: Awake and alert in no acute distress HEENT: NC, AT Neck: Supple no JVD Respiratory: Good breath sounds to both lung blue with soft bibasilar crackles Cardiovascular: regular rate and rhythm, no murmurs Extremities: No edema. Lab Results WBC: 9.1 E9/L (05/02/20 05:37:00) RBC: 4.4 E12/L (05/02/20 05:37:00) Hgb: 11.2 gm/dL Low (05/02/20 05:37:00) Hct: 34.1 % (05/02/20 05:37:00) MCV: 77.4 fL Low (05/02/20 05:37:00) MCH: 25.5 pg Low (05/02/20 05:37:00) MCHC: 33 gm/dL (05/02/20 05:37:00) RDW: 16.7 % High (05/02/20 05:37:00) Platelet: 388 E9/L (05/02/20 05:37:00) MPV: 7.2 fL (05/02/20 05:37:00) Neutro Auto: 76 % High (05/02/20 05:37:00) Lymph Auto: 18.3 % (05/02/20 05:37:00) [place] Auto: 5.4 % (05/02/20 05:37:00) Eos Auto: 0.1 % (05/02/20 05:37:00) Basophil Auto: 0.2 % (05/02/20 05:37:00) Neutro Absolute: 6.9 E9/L (05/02/20 05:37:00) Lymph Absolute: 1.7 E9/L (05/02/20 05:37:00) [place] Absolute: 0.5 E9/L (05/02/20 05:37:00) Eos Absolute: 0 E9/L (05/02/20 05:37:00) Basophil Absolute: 0 E9/L (05/02/20 05:37:00) D-Dimer: 2647 ng/mL Critical (05/02/20 05:37:00) Glucose Lvl: 128 mg/dL (05/02/20 05:37:00) BUN: 17 mg/dL (05/02/20 05:37:00) Creatinine: 0.6 mg/dL (05/02/20 05:37:00) eGFR: >60 (05/02/20 05:37:00) eGFR AA: >60 (05/02/20 05:37:00) BUN/Creat Ratio: 28 High (05/02/20 05:37:00) Sodium Lvl: 136 mmol/L (05/02/20 05:37:00) Potassium Lvl: 4.1 mmol/L (05/02/20 05:37:00) Chloride: 102 mmol/L (05/02/20 05:37:00) CO2: 26 mmol/L (05/02/20 05:37:00) AGAP: 12 mEq/L (05/02/20 05:37:00) Calcium Lvl: 8.5 mg/dL Low (05/02/20 05:37:00) Alk Phos: 104 Int._Unit/L High (05/02/20 05:37:00) ALT: 14 Int._Unit/L (05/02/20 05:37:00) AST: 17 Int._Unit/L (05/02/20 05:37:00) Total Protein: 7.2 gm/dL (05/02/20 05:37:00) Albumin Lvl: 3 gm/dL Low (05/02/20 05:37:00) Globulin: 4.2 gm/dL High (05/02/20 05:37:00) A/G Ratio: 0.7 Low (05/02/20 05:37:00) Bili Total: 0.3 mg/dL (05/02/20 05:37:00) CRP: 6.3 mg/dL High (05/02/20 05:37:00) LDH: 285 Int._Unit/L High (05/02/20 05:37:00) Ferritin Lvl: 90 ng/mL (05/02/20 05:37:00) Glucose Cap: 99 mg/dL (05/02/20 08:41:00) POC Device SN: [id number] (05/02/20 08:41:00) POC User ID: [id number] (05/02/20 08:41:00) POC Username: WESTHECTOR ALONZO (05/02/20 08:41:00) Attestation Assessment and plan: Acute hypoxic respiratory failure: Likely secondary to Covid pneumonia. Slowly improving with current treatment with a decrease in her CRP levels and LDH today. Still requiring high oxygen flow at 50%. We will continue with remdesivir, baricitinib and dexamethasone. Encourage positional therapy and aggressive incentive spirometry use. Follow inflammatory markers Wean down FiO2 as tolerated. Discussed with the patient in details. Discussed with ICU nursing staff and respiratory therapy. Critical care time was 32 minutes. Problem List/Past Medical History Ongoing Anxiety Asthma Chronic GERD Depression with anxiety Headache Hypertension Morbid obesity due to excess calories Morbid obesity with body mass index of 50 or higher Historical No qualifying data Medications Inpatient acetaminophen 325 mg Tab, 650 mg= 2 tab(s), Oral, q6hr, PRN Al hydroxide/Mg hydroxide/simethicone 200 mg-200 mg-20 mg/5 mL oral suspension, 30 mL, Oral, q6hr, PRN amLODIPine 10 mg Tab, 10 mg= 1 tab(s), Oral, Daily atenolol 25 mg Tab, 25 mg= 1 tab(s), Oral, Daily baricitinib 2 mg oral tablet, 4 mg= 2 tab(s), Oral, Daily budesonide 0.25 mg/2 mL Inh Susp, 0.25 mg= 2 mL, NEB, BID busPIRone 10 mg Tab, 15 mg= 1.5 tab(s), Oral, TID Cymbalta 60 mg Cap-DR, 60 mg= 1 cap(s), Oral, Daily dexamethasone 4 mg/mL Inj 1 mL, 6 mg= 1.5 mL, IV Push, Daily Dextrose 50% Soln-IV, 40 mL, IV Push, Once, PRN gabapentin 400 mg Cap, 400 mg= 1 cap(s), Oral, TID HumaLOG Sliding Scale, 0-10 Units, SubCutaneous, QIDACHS ibuprofen 800 mg Tab, 800 mg= 1 tab(s), Oral, BID Lovenox 40 mg/0.4 mL SC Darshana, 40 mg= 0.4 mL, SubCutaneous, Daily Milk of Magnesia 8% Susp-Oral, 30 mL, Oral, q6hr, PRN Mucinex 600 mg Tab-ER, 1200 mg= 2 tab(s), Oral, BID remdesivir additive + Sodium Chloride 0.9% intravenous solution 250 mL Zofran 4 mg/2 mL Injection, 4 mg= 2 mL, IV Push, q6hr, PRN Home albuterol 0.083% Inh Darshana 3 mL, 2.5 mg= 3 mL, Inhalation amLODIPine 10 mg Tab, Oral, Daily atenolol 25 mg Tab, Oral, Daily budesonide 90 mcg/inh inhalation powder, 2 puff(s), Inhalation, q4hr busPIRone, 15 mg, Oral, TID cyclobenzaprine, 10 mg, Oral, Daily, Still taking, not as prescribed: per patient takes as needed JRuby duloxetine 60 mg Cap-DR, 1 cap(s), Oral, Daily gabapentin 400 mg Cap, 400 mg= 1 cap(s), Oral, TID ibuprofen 800 mg Tab, Oral, BID predniSONE 20 mg Tab, 20 mg= 1 tab(s), Oral, As Directed, Not taking: per patient she still has to pick this medication up from the pharmacy Hernán Vitamin C, 1tablet, Oral, Daily, Self Directed Normal [facility] Comment on above: Result Comment: Elec tronically Signed By: Humlbe WALTON, Phu Bo\.br\Date and Time Signed: 05/02/20 16:06 EST eGFRon 05-02-2020 GFR/1.73 sq M predicted among blacks MDRD (S/P/Bld) [Vol rate/Area] mL/min/{1.73_m2} Normal >=59 [facility] Comment on above: Order Comment: Order added by Discern Expert. Result Comment: eGFR is race adjusted. AA=. Performed By: #### 2 [id number], [id number], [id number], [id number], [id number], [id number] ####[facility] [address] [place] [address] GFR/1.73 sq M predicted among non-blacks MDRD (S/P/Bld) [Vol rate/Area] mL/min/{1.73_m2} Normal >=59 [facility] Comment on above: Order Comment: Order added by Discern Expert. 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 Kidney failure is indicated at less than 15 mL/min/1.73m2. Performed By: #### 2 [id number], [id number], [id number], [id number], [id number], [id number], [id number], [id number] ####[facility] [address] [place] [address] CRPon 05-01-2020 CRP [Mass/Vol] 12.2 mg/dL High <=1.9 [facility] Comment on above: Performed By: #### 2 [id number], [id number], [id number], [id number], [id number] ####[facility] [address] [place] [address] Capillary Glucose POCon Glucose [Mass/Vol] 203 mg/dL High 55-99 [facility] Comment on above: Performed By: #### 2 [id number] ####[facility] [address] [place] [address] Glucose [Mass/Vol] 275 mg/dL High 55-99 [facility] Comment on above: Result Comment: Willy POSEY Performed By: #### 2 [id number] ####[facility] [address] [place] [address] Glucose [Mass/Vol] 180 mg/dL High 55-99 [facility] Comment on above: Result Comment: Repe at Test Performed By: #### 2 [id number] #### [facility] [address] [place] [address] Glucose [Mass/Vol] 98 mg/dL Normal 55-99 [facility] Comment on above: Result Comment: Willy POSEY Performed By: #### 2 [id number] ####[facility] [address] [place] [address] D-Dimeron 05-01-2020 Fibrin D-dimer FEU (PPP) [Mass/Vol] 1700 ng/mL Abnormal 215-500 [facility] Comment on above: Result Comment: Resu lts Verified By Repeat Analysis. Results Called To Stacy James in ICU By miryam And Read Back For Confirmation On 05/01/2020 07:14:28 EST. This D-Dimer assay may be used in conjunction with a non-high clinical pretest probability assessment to exclude deep-vein thrombosis(DVT). For exclusion of venous thrombosis or pulmonary embolism the analyte D-Dimer should not be used as an aid in patients with: Therapeutic dose anticoagulant therapy for >24 hours Fibrinolytic therapy within previous 7 days Trauma or surgery within previous 4 weeks Disseminated malignacies Aortic aneurysm Sepsis, severe infections, pneumonia, severe skin infections Liver cirrhosis Performed By: #### 2 [id number], [id number], [id number], [id number], [id number] ####[facility] [address] [place] [address] Ferritinon 05-01-2020 Ferritin [Mass/Vol] 122 ng/mL Normal 11-307 [facility] Comment on above: Result Comment: NORM ALS MEN <30 YRS 16-132 ng/mL MEN >30 YRS 8-338 ng/mL WOMEN (PREMEN) 6-104 ng/mL WOMEN (POSTMEN) 12-210 ng/mL Performed By: #### 2 [id number], [id number], 3665825, [id number], [id number] ####[facility] [address] [place] [address] Hep Func Panelon 05-01-2020 Bilirubin.direct [Mass/Vol] UTC Abnormal 0.1-0.9 [facility] Comment on above: Result Comment: Resu lt verified by Discern Rule. Performed result UTC (Unable to Calculate) was sent as an Alpha code due the inability to calculate a valid numeric value. Performed By: #### 2 [id number], [id number], [id number], [id number], [id number] ####[facility] [address] [place] [address] Albumin [Mass/Vol] 0.8 g/dL Low 1.1-2.2 [facility] Comment on above: Performed By: #### 2 [id number], 3859253, 9379745, 6426702, [id number] ####[facility] [address] [place] [address] Albumin [Mass/Vol] 3.0 g/dL Low 3.3-5.0 [facility] Comment on above: Performed By: #### 2 491896, 0221233, 1372825, 4887989, [id number] ####[facility] [address] [place] [address] ALP [Catalytic activity/Vol] 98 Int._Unit/L Normal 21-98 [facility] Comment on above: Performed By: #### 2 [id number], 3023811, 2914518, 5132764, [id number] ####[facility] [address] [place] [address] ALT No additional P-5'-P [Catalytic activity/Vol] 16 Int._Unit/L Normal 6-46 [facility] Comment on above: Performed By: #### 2 714876, 7248066, 9588233, 7770691, [id number] ####[facility] [address] [place] [address] AST [Catalytic activity/Vol] 17 Int._Unit/L Normal 5-43 [facility] Comment on above: Performed By: #### 2 397752, 5629172, 5975360, 2640144, 2260493 ####[facility] [address] [place] [address] Bilirubin [Mass/Vol] 0.6 mg/dL Normal 0.0-1.[address] [facility] Comment on above: Performed By: #### 2 994839, 1602434, 2658454, 9282089, 8045105 ####[facility] [address] [place] [address] Bilirubin.direct [Mass/Vol] mg/dL Normal 0.1-0.4 [facility] Comment on above: Performed By: #### 2 779372, 7168353, 5460046, 5817276, 1949912 ####[facility] [address] [place] [address] Globulin (S) [Mass/Vol] 4.0 g/dL Normal 1.4-4.0 [facility] Comment on above: Performed By: #### 2 735702, 9661857, 6403980, 7201194, 4481538 ####[facility] [address] [place] [address] Protein [Mass/Vol] 7.0 g/dL Normal 6.0-7.8 [facility] Comment on above: Performed By: #### 2 009483, 9209787, 6479984, 2155751, 9117130 ####[facility] [address] [place] [address] Insurance Correspondence Off ice05-01-2020 Insurance Correspondence Office [id number] 1.00CD:127 Normal [facility] Interdisciplinary Note - Jose e Manageron 05-01-2020 Interdisciplinary Note - Cell Stripper pt is asleep in bed, remains on high flow oxygen at this time. CRM following per needs. Pt updated spouse on cell phone earlier today. [facility] Comment on above: Result Comment: Elec tronically Signed By: Lance STAHL, Isabela\.marie\Date and Time Signed: 05/01/20 11:44 EST LDHon 05-01-2020 LDH [Catalytic activity/Vol] 309 Int._Unit/L High 93-218 [facility] Comment on above: Performed By: #### 2 080547, 9067662, 7534738, 0965165, 6661564 ####[facility] [address] [place] [address] Monitor Recordon 05-01-2020 Monitor Record [id number]# 1.00CD:127 [facility] Monitor Record [id number]# 1.00CD:127 [facility] Monitor Record [id number]# 1.00CD:127 [facility] Monitor Record [id number]# 1.00CD:127 [facility] Monitor Record [id number]# 1.00CD:127 [facility] Progress Note - Pharmacyon 0 05-01-2020 Progress Note - Pharmacy Pharmacy Medication Review - ICU Patients I have personally reviewed this patient's current inpatient medication orders and will communicate any recommendations to the attending physician. IV antibiotic(s): Yes Day of therapy: remdesivir day 4 Mechanically ventilated: No Sedation: n/a Continuous infusion(s): No Renal dose adjustment: No Estimated CrCl: 169.66 mL/min Adjusted medications: Candidate for IV to PO conversion: n/a Need for PO/OG/Gtube conversion?no Need for modification of dosing weight vs. measured weight (>10% variance)? no VTE Prophylaxis: Below the Knee Intermittent Pneumatic Compression Device Ordered by: Isa Solis 04/28/2020 1251 enoxaparin 40 mg/0.4 mL SC Darshana [F] Ordered by: Isa Solis 04/28/2020 1252 Labs: ADMISSION LAB WORK 05/01/20 05:48 Bili Indirect: Unable to Calculate mg/dL 05/01/20 05:48 Bili Indirect: Unable to Calculate mg/dL 05/01/20 05:48 AST: 17 Int._Unit/L 05/01/20 05:48 AST: 17 Int._Unit/L 05/01/20 05:48 AST: 17 Int._Unit/L 05/01/20 05:48 Albumin Lvl: 3.0 gm/dL 05/01/20 05:48 Albumin Lvl: 3.0 gm/dL 05/01/20 05:48 Alk Phos: 98 Int._Unit/L 05/01/20 05:48 Alk Phos: 98 Int._Unit/L 05/01/20 05:48 Alk Phos: 98 Int._Unit/L 05/01/20 05:48 Bili Total: 0.6 mg/dL 05/01/20 05:48 Bili Total: 0.6 mg/dL 05/01/20 05:48 Total Protein: 7.0 gm/dL 05/01/20 05:48 Total Protein: 7.0 gm/dL 05/01/20 05:48 Globulin: 4.0 gm/dL 05/01/20 05:48 Globulin: 4.0 gm/dL 05/01/20 05:48 A/G Ratio: 0.8 05/01/20 05:48 A/G Ratio: 0.8 05/01/20 05:48 Bili Direct: <0.1 mg/dL 05/01/20 05:48 Bili Direct: <0.1 mg/dL 05/01/20 05:48 LDH: 309 Int._Unit/L 05/01/20 05:48 LDH: 309 Int._Unit/L 05/01/20 05:48 LDH: 309 Int._Unit/L 05/01/20 05:48 CRP: 12.2 mg/dL 05/01/20 05:48 CRP: 12.2 mg/dL 05/01/20 05:48 Ferritin Lvl: 122 ng/mL 05/01/20 05:48 Ferritin Lvl: 122 ng/mL 05/01/20 05:48 ALT: 16 Int._Unit/L 05/01/20 05:48 ALT: 16 Int._Unit/L 05/01/20 05:48 ALT: 16 Int._Unit/L Normal [facility] Progress Note-Nakul Progress Note-Physician Basic Informatio n Acute Hypoxia Respiratory Failure - Covid positive History of Present Illness 40 year old female with significant past medical history of asthma since a child reports has an intolerance to albuterol and has been prescribed budesonide, reports that on age she may take this as needed inhaler 1 to 3 times a week dependent on time of year and exposure and does go weeks intermittently without using. She is a reformed smoker (age of 16 - 34) approximately 1 pack a day for 18 years. Quit 6 years ago. Has never had a PFT or evaluation by a Wash Test Checker, followed closely by her family physician. She presents to the [facility] ED with a known positive COVID test. Reports SOB, exertional dyspnea, and found to hypoxic in the ED required initiation of high flow oxygen. CT scan negative for PE, diffuse COVID pneumonia t/o bilateral lung blue. Since admission to the ICU has maintained on Hi nancy. Inflammatory markers have increased. Procal has resulted low suspicion for concurrent bacterial pneumonia. patient is cooperative with care - attempting to side lie and will prone with assistance. Appropriate regimen has been initiated. On interview reports that she feels improved since presentation. Denies loss of taste or smell. Does have nausea and had 2 days of diarrhea prior to admission, dry nonproductive cough. 04/30 patient cooperative with care and treatment regimen, proning, mobilizing and using incentive spirometry. O2 needs this morning are 50 L / 60%. Saturation of 94% on monitor. At time of assessment patient was in prone position. No complaints -verbalized understanding of current treatment. 05/01 patient states she feels improved today, has better color, increased energy level. However continues to require 60 L / 65% FiO2 this morning. Participating in proning. Continue with current regimen of care Objective Vitals & Measurements T: 36.6 ?C (Oral) TMIN: 36.6 ?C (Oral) TMAX: 36.8 ?C (Oral) HR: 65(Monitored) RR: 27 BP: 110/74 SpO2: 94% WT: 128.3 kg Intake & Output This visit (24 hour periods starting at 07:00 EST) 05/01/20 * 04/30/20 04/29/20 Total Summary Intake mL 253.5 651.5 1,047.5 Output mL -- 1,950 1,325 Fluid Balance 253.5 -1,298.5 -277.5 Intake (5) Dextrose 5% in Water, magnesium sulfate mL -- -- 100 Oral Intake mL -- 400 690 Sodium Chloride 0.9%, remdesivir mL 250 250 250 dexamethasone mL 1.5 1.5 1.5 ondansetron mL 2 -- 6 Total 253.5 651.5 1,047.5 Output (3) Urine Catheter mL -- 1,750 -- Urine Output Initial mL -- 200 -- Urine Voided mL -- -- 1,325 Total -- 1,950 1,325 Counts (1) Stool Count -- -- 3 * This column has not completed the indicated time period. Physical Exam General: alert, mild distress Skin: warm, dry Head: no trauma, normocephalic Neck: Trachea midline, no adenopathy, no tenderness Eye: normal conjunctiva, sclera clear ENMT: oral mucosa moist, no pharyngeal erythema or exudate Cardiovascular: regular rate and rhythm, normal peripheral perfusion Respiratory: Lungs diminished t/o all lung blue, respirations non labored at rest - does exertional dyspnea and desaturation to the mid 80s with activity Chest wall: no deformity. Gastrointestinal: soft, non distended, no tenderness, no guarding. Back: No tenderness, Normal ROM, Normal alignment. Extremities: no deformity, no trauma Neurological: oriented x 4, LOC appropriate for age, motor strength equal & normal bilaterally, sensation equal & normal bilaterally, speech normal Psychiatric: cooperative, affect appropriate for age, normal judgement, normal psychiatric thoughts. Lab Results D-Dimer: 1700 ng/mL Critical (05/01/20 05:48:00) Alk Phos: 98 Int._Unit/L (05/01/20 05:48:00) ALT: 16 Int._Unit/L (05/01/20 05:48:00) AST: 17 Int._Unit/L (05/01/20 05:48:00) Total Protein: 7 gm/dL (05/01/20 05:48:00) Albumin Lvl: 3 gm/dL Low (05/01/20 05:48:00) Globulin: 4 gm/dL (05/01/20 05:48:00) A/G Ratio: 0.8 Low (05/01/20 05:48:00) Bili Total: 0.6 mg/dL (05/01/20 05:48:00) Bili Direct: <0.1 (05/01/20 05:48:00) Bili Indirect: Unable to Calculate Abnormal (05/01/20 05:48:00) CRP: 12.2 mg/dL High (05/01/20 05:48:00) LDH: 309 Int._Unit/L High (05/01/20 05:48:00) Ferritin Lvl: 122 ng/mL (05/01/20 05:48:00) Glucose Cap: 180 mg/dL High (05/01/20 13:03:00) POC Device SN: [id number] (05/01/20 13:03:00) POC User ID: [id number] (05/01/20 13:03:00) POC Username: HECTOR WEST (05/01/20 13:03:00) Diagnostic Results Covid positive -on 04/24 Procalcitonin 0.07 on admission Images (04/28/2020 11:53 EST CTA Chest) *Final Report * Reason For Exam PE suspected, high prob;Other (please specify) POWERSCRIBE REPORT IMPRESSION: NO CT EVIDENCE OF PULMONARY EMBOLISM. MILDLY ENLARGED MEDIASTINAL AND RIGHT HILAR LYMPH NODES, AND IN LIGHT OF THE EXTENSIVE LUNG FINDINGS, THE LYMPH NODES ARE SUSPECTED TO BE REACTIVE IN NATURE. THE LYMPH NODES COULD BE FURTHER ASSESSED WITH A FOLLOW-UP STUDY AFTER RESOLUTION OF THE LUNG FINDINGS. INCREASED DENSITIES EXTENSIVELY SCATTERED IN BOTH LUNGS, CONSISTENT WITH INFILTRATIVE CHANGES, WITH COVID 19 PNEUMONIA MOST LIKELY. CLINICAL HISTORY: PE suspected, high prob. Shortness of breath. Covid 19 positive. COMMENT: Axial images were obtained after the rapid injection of IV contrast with narrow collimation and reconstructed at a narrow interval. Coronal and sagittal reconstructions were performed. On the PACS, images were reviewed in cine display and using MIP postprocessing. Although the concentration of contrast material within the pulmonary arterial system is not optimal, there is sufficient contrast opacification of the pulmonary arteries, and no intraluminal filling defects are noted. The thoracic aorta is normal in diameter, without evidence of aneurysm or dissection. The heart is upper limits of normal in size. No pericardial effusion is noted. There are small nonspecific bilateral axillary lymph nodes. There are multiple mediastinal lymph nodes, with many of the mediastinal lymph small,, but there are enlarged paratracheal, paracarinal, and subcarinal mediastinal lymph nodes. There also are mildly enlarged right hilar lymph nodes. Left hilar lymph nodes are small and nonspecific. There are multiple irregular areas of increased density scattered throughout both lungs, from the apices to the bases, and in both peripheral and central locations. Most of the areas of increased density are groundglass opacifications, but there are a few areas of denser airspace opacification. The bilateral lung findings are nonspecific, but in light of the clinical history, are most probably due to Covid 19 pneumonia. No pneumothorax nor pleural effusion is evident. No lung mass is delineated, but the extensive areas of airspace opacification limit evaluation for a small lung mass. Superior portions of the liver and spleen are included within the [id number]. There is diffuse fatty infiltration of the visualized portion of the liver. The visualized portion of the spleen appears within normal limits in size. All CT scans at this facility use dose modulation, iterative reconstruction, and/or weight based dosing when appropriate to reduce radiation dose to as low as reasonably achievable. Signature Line FINAL REPORT Dictated: 04/28/2020 12:10 pm Yazmin Rivas, Dino Macias [1] Assessment/Plan 1. Acute respiratory failure with hypoxia (J96.01: Acute respiratory failure with hypoxia) Secondary to COVID 19 pneumonia Diagnosed with COVID virus on Apr 24. Now with subjective fever, SOB and exertional dyspnea, N/D + headache Presents to the ED for further evaluation - hypoxic on r/a - abg with pAo2 of 49 on R/A Initiated on HiFlo support. CT scan obtained negative for PE - however + for diffuse covid 19 penumonia Admitted to the ICU - started on appropriate regimen as follows Pro-Camelia has been assessed and is negative 04/30 nausea and headache have diminished. Attempting to take nutrition. Cooperating with current regimen. Maintained on 50 L / 60% FiO2 05/01 overall patient reports that she clinically feels better however continues to use 55 L / 65% FiO2 this a.m.. On assessment patient again proning, participating in care and eager to assist with any modalities that will improve her oxygenation and ventilation. Inflammatory markers except D-dimer are trending down. D-dimer today is increased to 1700. Continue with remdesivir + Barcitinib and Dexamethasone Continue to monitor inflammatory markers LFTs and renal indices, Lovenox for DVT prophylaxis Continued on Hi Nancy -titrate for saturation of 92% and higher Attempting to lay on side and will prone position Attempting to mobilize (does have desaturation to mid 80's - with recovery in 1 - 2 minutes) Will need to continue to monitor inflammatory markers + LFT + renal indices Reports intolerance to Albuterol and does use budesonide inhaler as outpatient Continue with budesonide- BID Zofran for nausea 2. Allergic asthma (J45.909: Unspecified asthma, uncomplicated) Since a child - however never assessed by Pulmonology - seasonal and exposure to perfumes provoke asthma Home regimen of Budesonide PRN - has been taking 3 - 4 x daily over the past week 3. Pneumonia due to COVID-19 virus (U07.1: COVID-19) Plan as #1 4. Hyponatremia (E87.1: Hypo-osmolality and hyponatremia) Likely secondary to dehydration d/t bouts of diarrhea Taking PO fluids as tolerated - continue to monitor 5. Hypertension (I10: Essential (primary) hypertension) 6. Chronic GERD (K21.9: Gastro-esophageal reflux disease without esophagitis) 7. Depression with anxiety (F41.8: Other specified anxiety disorders) 8. Morbid obesity due to excess calories (E66.01: Morbid (severe) obesity due to excess calories) 9. No contraindication to deep vein thrombosis (DVT) prophylaxis (Z78.9: Other specified health status) Critical care time 30 minutes Problem List/Past Medical History Ongoing Anxiety Asthma Chronic GERD Depression with anxiety Headache Hypertension Morbid obesity due to excess calories Morbid obesity with body mass index of 50 or higher Historical No qualifying data Medications Inpatient acetaminophen 325 mg Tab, 650 mg= 2 tab(s), Oral, q6hr, PRN Al hydroxide/Mg hydroxide/simethicone 200 mg-200 mg-20 mg/5 mL oral suspension, 30 mL, Oral, q6hr, PRN amLODIPine 10 mg Tab, 10 mg= 1 tab(s), Oral, Daily atenolol 25 mg Tab, 25 mg= 1 tab(s), Oral, Daily baricitinib 2 mg oral tablet, 4 mg= 2 tab(s), Oral, Daily budesonide 0.25 mg/2 mL Inh Susp, 0.25 mg= 2 mL, NEB, BID busPIRone 10 mg Tab, 15 mg= 1.5 tab(s), Oral, TID Cymbalta 60 mg Cap-DR, 60 mg= 1 cap(s), Oral, Daily dexamethasone 4 mg/mL Inj 1 mL, 6 mg= 1.5 mL, IV Push, Daily Dextrose 50% Soln-IV, 40 mL, IV Push, Once, PRN gabapentin 400 mg Cap, 400 mg= 1 cap(s), Oral, TID HumaLOG Sliding Scale, 0-10 Units, SubCutaneous, QIDACHS ibuprofen 800 mg Tab, 800 mg= 1 tab(s), Oral, BID Lovenox 40 mg/0.4 mL SC Darshana, 40 mg= 0.4 mL, SubCutaneous, Daily Milk of Magnesia 8% Susp-Oral, 30 mL, Oral, q6hr, PRN Mucinex 600 mg Tab-ER, 1200 mg= 2 tab(s), Oral, BID remdesivir additive + Sodium Chloride 0.9% intravenous solution 250 mL Zofran 4 mg/2 mL Injection, 4 mg= 2 mL, IV Push, q6hr, PRN Home albuterol 0.083% Inh Darshana 3 mL, 2.5 mg= 3 mL, Inhalation amLODIPine 10 mg Tab, Oral, Daily atenolol 25 mg Tab, Oral, Daily budesonide 90 mcg/inh inhalation powder, 2 puff(s), Inhalation, q4hr busPIRone, 15 mg, Oral, TID cyclobenzaprine, 10 mg, Oral, Daily, Still taking, not as prescribed: per patient takes as needed JRuby duloxetine 60 mg Cap-DR, 1 cap(s), Oral, Daily gabapentin 400 mg Cap, 400 mg= 1 cap(s), Oral, TID ibuprofen 800 mg Tab, Oral, BID predniSONE 20 mg Tab, 20 mg= 1 tab(s), Oral, As Directed, Not taking: per patient she still has to pick this medication up from the pharmacy Henrán Vitamin C, 1tablet, Oral, Daily, Self Directed Normal [facility] Comment on above: Result Comment: Elec tronically Signed By: David TORRES, Peggy Farley.br\Date and Time Signed: 05/01/20 13:16 EST Progress Note-Physician Assessment/Plan 1. Acute respiratory failure with hypoxia (J96.01: Acute respiratory failure with hypoxia) - PaO2 49 on ABG on RA - on admission - secondary to bilateral covid 19 pneumonia - remdesivir, decadron, baricitinib day 4 - budesonide added as per pulmonary - monitor inflammatory markers, LFT - high flow oxygen, titrate for O2 sat greater than 92% - currently on high flow 50 liters and 60%, O2 sat 89-90% - IS, out of bed to chair TID with meals - d/w pulmonary Ordered: [facility] Care/Day Moderate 25 Minutes 33417 2. Allergic asthma (J45.909: Unspecified asthma, uncomplicated) - stable, not in acute exacerbation - budesonide 3. Pneumonia due to COVID-19 virus (U07.1: COVID-19) - as above 4. Hyponatremia (E87.1: Hypo-osmolality and hyponatremia) - stable, stopped IVF, encourage PO intake 5. Hypertension (I10: Essential (primary) hypertension) - norvasc, atenolol, lisinopril/hctz 6. Chronic GERD (K21.9: Gastro-esophageal reflux disease without esophagitis) - protonix 7. Depression with anxiety (F41.8: Other specified anxiety disorders) - lindsey lu 8. Morbid obesity due to excess calories (E66.01: Morbid (severe) obesity due to excess calories) - BMI 53 - lifestyle modification, outpatient PCP follow up 9. No contraindication to deep vein thrombosis (DVT) prophylaxis (Z78.9: Other specified health status) - SCDs, lovenox Orders: C-Reactive Protein Capillary Glucose POC Capillary Glucose POC Capillary Glucose POC Capillary Glucose POC D-Dimer Extra Lav Tube Ferritin Hepatic Function Panel Lactate Dehydrogenase Subjective Pt still has significant sob with exertion. no CP. No nausea or vomiting. Review of Systems Constitutional: No fevers, chills Eye: Negative. Ear/Nose/Mouth/Throat : Negative. Respiratory: sob Cardiovascular: Negative. Gastrointestinal: Negative. Genitourinary: Negative. Immunologic: Negative. Musculoskeletal: Negative. Integumentary: Negative. Neurologic: Negative. Psychiatric: Negative. All other systems are negative Objective Vitals & Measurements T: 36.7 ?C (Oral) TMIN: 36.6 ?C (Oral) TMAX: 36.8 ?C (Oral) HR: 64(Monitored) RR: 28 BP: 106/60 SpO2: 86% WT: 128.3 kg Intake & Output This visit (24 hour periods starting at 07:00 EST) 05/01/20 * 04/30/20 04/29/20 Total Summary Intake mL 3.5 651.5 1,047.5 Output mL -- 1,950 1,325 Fluid Balance 3.5 -1,298.5 -277.5 Intake (5) Dextrose 5% in Water, magnesium sulfate mL -- -- 100 Oral Intake mL -- 400 690 Sodium Chloride 0.9%, remdesivir mL -- 250 250 dexamethasone mL 1.5 1.5 1.5 ondansetron mL 2 -- 6 Total 3.5 651.5 1,047.5 Output (3) Urine Catheter mL -- 1,750 -- Urine Output Initial mL -- 200 -- Urine Voided mL -- -- 1,325 Total -- 1,950 1,325 Counts (1) Stool Count -- -- 3 * This column has not completed the indicated time period. Physical Exam General: alert, no acute distress ENMT: oral mucosa moist, no pharyngeal erythema or exudate Cardiovascular: regular rate and rhythm, normal peripheral perfusion Respiratory: Lungs rhonci bilaterally, decreased breath sounds, respirations non labored Abdomen: soft, NTND, +BS Skin: warm, dry, intact Extremities: no deformity, no trauma Neurological: LOC appropriate for age, CN II-XII intact, motor strength equal & normal bilaterally, sensation equal & normal bilaterally, speech normal Lab Results D-Dimer: 1700 ng/mL Critical (05/01/20 05:48:00) Alk Phos: 98 Int._Unit/L (05/01/20 05:48:00) ALT: 16 Int._Unit/L (05/01/20 05:48:00) AST: 17 Int._Unit/L (05/01/20 05:48:00) Total Protein: 7 gm/dL (05/01/20 05:48:00) Albumin Lvl: 3 gm/dL Low (05/01/20 05:48:00) Globulin: 4 gm/dL (05/01/20 05:48:00) A/G Ratio: 0.8 Low (05/01/20 05:48:00) Bili Total: 0.6 mg/dL (05/01/20 05:48:00) Bili Direct: <0.1 (05/01/20 05:48:00) Bili Indirect: Unable to Calculate Abnormal (05/01/20 05:48:00) CRP: 12.2 mg/dL High (05/01/20 05:48:00) LDH: 309 Int._Unit/L High (05/01/20 05:48:00) Ferritin Lvl: 122 ng/mL (05/01/20 05:48:00) Glucose Cap: 98 mg/dL (05/01/20 08:05:00) POC Device SN: [id number] (05/01/20 08:05:00) POC User ID: [id number] (05/01/20 08:05:00) POC Username: HECTOR WEST (05/01/20 08:05:00) Problem List/Past Medical History Ongoing Anxiety Asthma Chronic GERD Depression with anxiety Headache Hypertension Morbid obesity due to excess calories Morbid obesity with body mass index of 50 or higher Historical No qualifying data Medications Inpatient acetaminophen 325 mg Tab, 650 mg= 2 tab(s), Oral, q6hr, PRN Al hydroxide/Mg hydroxide/simethicone 200 mg-200 mg-20 mg/5 mL oral suspension, 30 mL, Oral, q6hr, PRN amLODIPine 10 mg Tab, 10 mg= 1 tab(s), Oral, Daily atenolol 25 mg Tab, 25 mg= 1 tab(s), Oral, Daily baricitinib 2 mg oral tablet, 4 mg= 2 tab(s), Oral, Daily budesonide 0.25 mg/2 mL Inh Susp, 0.25 mg= 2 mL, NEB, BID busPIRone 10 mg Tab, 15 mg= 1.5 tab(s), Oral, TID Cymbalta 60 mg Cap-DR, 60 mg= 1 cap(s), Oral, Daily dexamethasone 4 mg/mL Inj 1 mL, 6 mg= 1.5 mL, IV Push, Daily Dextrose 50% Soln-IV, 40 mL, IV Push, Once, PRN gabapentin 400 mg Cap, 400 mg= 1 cap(s), Oral, TID HumaLOG Sliding Scale, 0-10 Units, SubCutaneous, QIDACHS ibuprofen 800 mg Tab, 800 mg= 1 tab(s), Oral, BID Lovenox 40 mg/0.4 mL SC Darshana, 40 mg= 0.4 mL, SubCutaneous, Daily Milk of Magnesia 8% Susp-Oral, 30 mL, Oral, q6hr, PRN Mucinex 600 mg Tab-ER, 1200 mg= 2 tab(s), Oral, BID remdesivir additive + Sodium Chloride 0.9% intravenous solution 250 mL Zofran 4 mg/2 mL Injection, 4 mg= 2 mL, IV Push, q6hr, PRN Home albuterol 0.083% Inh Darshana 3 mL, 2.5 mg= 3 mL, Inhalation amLODIPine 10 mg Tab, Oral, Daily atenolol 25 mg Tab, Oral, Daily budesonide 90 mcg/inh inhalation powder, 2 puff(s), Inhalation, q4hr busPIRone, 15 mg, Oral, TID cyclobenzaprine, 10 mg, Oral, Daily, Still taking, not as prescribed: per patient takes as needed JRcris duloxetine 60 mg Cap-DR, 1 cap(s), Oral, Daily gabapentin 400 mg Cap, 400 mg= 1 cap(s), Oral, TID ibuprofen 800 mg Tab, Oral, BID predniSONE 20 mg Tab, 20 mg= 1 tab(s), Oral, As Directed, Not taking: per patient she still has to pick this medication up from the pharmacy JRcris Vitamin C, 1tablet, Oral, Daily, Self Directed Normal [facility] Comment on above: Result Comment: Elec tronically Signed By: CAITLIN WALTON, Isa\.br\Date and Time Signed: 05/01/20 10:56 EST CRPon 04-30-2020 CRP [Mass/Vol] 16.5 mg/dL High <=1.9 [facility] Comment on above: Performed By: #### 2 [id number] ####[facility] [address] [place] [address] Capillary Glucose POCon Glucose [Mass/Vol] 231 mg/dL High 55-99 [facility] Comment on above: Result Comment: Jamila nikita Meter Performed By: #### 2 [id number] ####[facility] [address] [place] [address] Glucose [Mass/Vol] 159 mg/dL High 55-99 [facility] Comment on above: Result Comment: Willy khan RN/ Performed By: #### 2 [id number] ####[facility] [address] [place] [address] Glucose [Mass/Vol] 290 mg/dL High 55- [facility] Comment on above: Result Comment: Willy POSEY Performed By: #### 1 [id number] #### [facility] [address] [place] [address] Glucose [Mass/Vol] 114 mg/dL High 55-99 [facility] Comment on above: Result Comment: Willy khan RN/ Performed By: #### 1 [id number] #### [facility] [address] [place] [address] Glucose [Mass/Vol] 170 mg/dL High 55-99 [facility] Comment on above: Result Comment: Run Lab Confirmation MD Declined Lab Draw Performed By: #### 2 [id number] #### [facility] [address] [place] [address] Coding Queryon 04-30-2020 Coding Query - From: Aurea Henderson RN To: Isa TUCKER MD; Sent: 04/29/2020 10:23:48 EST ! Subject: Coding Query Due Date/Time: 04/30/2020 10:23:00 EST Documentation in the medical record indicates that this patient has been admitted with: ? The following is also documented in the medical record: ? Temp > 38.3?C (100.9?F) or < 36?C (96.8?F) 04/28 1500 38.5 ? Pulse > 90 bpm: 04/28 1500 115 ? PaCO2 < 32 mmHg 04/28 1305 33.8 ? Respirations > 20/min: 04/28 1500 24 ? C-reactive protein (CRP): 04/28 15.9 ? Positive COVID-19 test (date): 04/23 Based on your medical judgment, can you further clarify the cause, if any, of these systemic findings? [___]Sepsis, unspecified [___]Sepsis due to COVID-19 [___]Viral sepsis [___]Other: Present on Admission [___]Yes[___]No[___]C linically unable to determine[___]Documen tation insufficient to determine Additional comments: [___] Unable to determine [___] The subject matter of this query is not relevant at this time [___] Incorrect assignment, please re-assign to the appropriate provider In responding to this request, please exercise your independent professional judgement. The fact that a question is asked does not imply that any particular answer is desired or expected. Thank you!aurea [id number] From: Isa TUCKER MD To: Beatriz STAHL, Aurea Medrano; Sent: 04/30/2020 10:55:02 EST Subject: RE: Coding Query done Normal [facility] D-Dimeron 04-30-2020 Fibrin D-dimer FEU (PPP) [Mass/Vol] 968 ng/mL Abnormal 215-500 [facility] Comment on above: Result Comment: Resu lts Verified By Repeat Analysis. Results Called To Roselyn De La Paz By JUAN And Read Back For Confirmation On 04/30/2020 06:50:16 EST. This D-Dimer assay may be used in conjunction with a non-high clinical pretest probability assessment to exclude deep-vein thrombosis(DVT). For exclusion of venous thrombosis or pulmonary embolism the analyte D-Dimer should not be used as an aid in patients with: Therapeutic dose anticoagulant therapy for >24 hours Fibrinolytic therapy within previous 7 days Trauma or surgery within previous 4 weeks Disseminated malignacies Aortic aneurysm Sepsis, severe infections, pneumonia, severe skin infections Liver cirrhosis Performed By: #### 2 [id number], [id number], [id number], [id number], [id number] ####[facility] [address] [place] [address] Ferritinon 04-30-2020 Ferritin [Mass/Vol] 150 ng/mL Normal 11-307 Count Includes [facility] Comment on above: Result Comment: NORM ALS MEN <30 YRS 16-132 ng/mL MEN >30 YRS 8-338 ng/mL WOMEN (PREMEN) 6-104 ng/mL WOMEN (POSTMEN) 12-210 ng/mL Performed By: #### 2 [id number], [id number], 0749409, [id number], [id number] ####[facility] [address] [place] [address] Hep Func Panelon 04-30-2020 Bilirubin.direct [Mass/Vol] UTC Abnormal 0.1-0.9 [facility] Comment on above: Result Comment: Resu lt verified by Discern Rule. Performed result UTC (Unable to Calculate) was sent as an Alpha code due the inability to calculate a valid numeric value. Performed By: #### 2 [id number], [id number], [id number], 9737266, [id number] ####[facility] [address] [place] [address] Albumin [Mass/Vol] 0.7 g/dL Low 1.1-2.2 [facility] Comment on above: Performed By: #### 2 456268, 3997047, 6558084, 2628072, 3874131 ####[facility] [address] [place] [address] Albumin [Mass/Vol] 2.9 g/dL Low 3.3-5.0 [facility] Comment on above: Performed By: #### 2 223326, 1258246, 9766445, 8341305, 1722195 ####[facility] [address] [place] [address] ALP [Catalytic activity/Vol] 94 Int._Unit/L Normal 21-98 [facility] Comment on above: Performed By: #### 2 714242, 6678778, 3931787, 6395292, 1019901 ####[facility] [address] [place] [address] ALT No additional P-5'-P [Catalytic activity/Vol] 18 Int._Unit/L Normal 6-46 [facility] Comment on above: Performed By: #### 2 577333, 4924887, 3228720, 8182865, 8798373 ####[facility] [address] [place] [address] AST [Catalytic activity/Vol] 20 Int._Unit/L Normal 5-43 [facility] Comment on above: Performed By: #### 2 737176, 8121265, 0109034, 5333652, 0585075 ####[facility] [address] [place] [address] Bilirubin [Mass/Vol] 0.4 mg/dL Normal 0.0-1.1 [facility] Comment on above: Performed By: #### 2 297825, 6096839, 8764795, 9414163, 0203874 ####[facility] [address] [place] [address] Bilirubin.direct [Mass/Vol] mg/dL Normal 0.1-0.4 [facility] Comment on above: Performed By: #### 2 006286, 4038713, 0074011, 5211205, 6305117 ####[facility] [address] [place] [address] Globulin (S) [Mass/Vol] 4.1 g/dL High 1.4-4.0 [facility] Comment on above: Performed By: #### 2 345538, 9740774, 0068833, 9071122, 4328383 ####[facility] [address] [place] [address] Protein [Mass/Vol] 7.0 g/dL Normal 6.0-7.8 [facility] Comment on above: Performed By: #### 2 971724, 7462870, 4276723, 6243096, 4960529 ####[facility] [address] [place] [address] Interdisciplinary Note - Jose e Manageron 04-30-2020 Interdisciplinary Note - Cell Stripper Pt is asleep in bed, proned in bed on high flow oxygen. Pt has been keeping family updated on her cell phone per Hector STAHL. Pt previously rounded with Dr. Tucker, plan to stay in ICU today, CRM following for needs. [facility] Comment on above: Result Comment: Elec tronically Signed By: Lance STAHL, Isabela\.br\Date and Time Signed: 04/30/20 14:14 EST Cholesterol in LDL [Mass/Vol] CRM called HIM - talked to Peggy Kumar. CRM received message from RN that patient would like a letter on [facility] letterhead stating she is here with COVID. HIM informed she will call the patient and get a release signed but them geriatric social work professor will need to right letter. CRM will inform geriatric social work professor. [facility] Comment on above: Result Comment: Elec tronically Signed By: Deb STAHL, Rachel Macias\.br\Date and Time Signed: 04/30/20 14:10 EST LDHon 04-30-2020 LDH [Catalytic activity/Vol] 321 Int._Unit/L High 93-218 [facility] Comment on above: Performed By: #### 2 595114, 2945350, 9800851, 4954215, 0286489 ####[facility] [address] [place] [address] Monitor Recordon 04-30-2020 Monitor Record [id number]# 1.00CD:127 [facility] Monitor Record [id number]# 1.00CD:127 [facility] Monitor Record [id number]# 1.00CD:127 [facility] Monitor Record [id number]# 1.00CD:127 Normal [facility] Monitor Record [id number]# 1.00CD:127 Normal [facility] Monitor Record [id number]# 1.00CD:127 Normal [facility] Monitor Record [id number]# 1.00CD:127 [facility] Progress Note - Pharmacyon 0 04-30-2020 Progress Note - Pharmacy Pharmacy Medication Review - ICU Patients I have personally reviewed this patient's current inpatient medication orders and will communicate any recommendations to the attending physician. COVID Treatment/IV Antibiotic(s): Yes remdesivir + Sodium Chloride 0.9% 250 mL 100 mg 20 mL, IV Piggyback, Noon Day of therapy: 3 baricitinib 2 mg Tab [F] 4 mg 2 tab(s), Oral, Daily Day of therapy: 3 dexamethasone 4 mg/mL Inj 1 mL [F] 6 mg 1.5 mL, IV Push, Daily Day of therapy: 3 Mechanically Ventilated: No Sedation: No Medications Switched to OG: No Renal dose adjustment: No CrCl: >120 mL/min (scr-0.6) Adjusted Medications:All medications are dosed appropriately for the current renal function. Candidate for IV to PO Conversion: No VTE Prophylaxis: Below the Knee Intermittent Pneumatic Compression Device Ordered by: Isa TUCKER - 04/28/2020 1251 enoxaparin 40 mg/0.4 mL SC Darshana [F] Ordered by: Isa Solis 04/28/2020 1252 Labs: platelets 249, hgb 11.8, hct 37 as of 04/28 GI Prophylaxis: not indicated [facility] Progress Note-Physicianon Progress Note-Physician Basic Informatio n Acute Hypoxia Respiratory Failure - Covid positive History of Present Illness 40 year old female with significant past medical history of asthma since a child reports has an intolerance to albuterol and has been prescribed budesonide, reports that on age she may take this as needed inhaler 1 to 3 times a week dependent on time of year and exposure and does go weeks intermittently without using. She is a reformed smoker (age of 16 - 34) approximately 1 pack a day for 18 years. Quit 6 years ago. Has never had a PFT or evaluation by a Wash Test Checker, followed closely by her family physician. She presents to the [facility] ED with a known positive COVID test. Reports SOB, exertional dyspnea, and found to hypoxic in the ED required initiation of high flow oxygen. CT scan negative for PE, diffuse COVID pneumonia t/o bilateral lung blue. Since admission to the ICU has maintained on Hi nancy. Inflammatory markers have increased. Procal has resulted low suspicion for concurrent bacterial pneumonia. patient is cooperative with care - attempting to side lie and will prone with assistance. Appropriate regimen has been initiated. On interview reports that she feels improved since presentation. Denies loss of taste or smell. Does have nausea and had 2 days of diarrhea prior to admission, dry nonproductive cough. 04/30 patient cooperative with care and treatment regimen, proning, mobilizing and using incentive spirometry. O2 needs this morning are 50 L / 60%. Saturation of 94% on monitor. At time of assessment patient was in prone position. No complaints -verbalized understanding of current treatment. Objective Vitals & Measurements T: 36.6 ?C (Oral) TMIN: 35.5 ?C (Oral) TMAX: 37.2 ?C (Oral) HR: 70(Monitored) RR: 22 BP: 120/75 SpO2: 94% Intake & Output This visit (24 hour periods starting at 07:00 EST) 04/30/20 * 04/29/20 04/28/20 Total Summary Intake mL 251.5 1,047.5 2,451.5 Output mL 200 1,325 3 Fluid Balance 51.5 -277.5 2,448.5 Intake (7) Dextrose 5% in Water, magnesium sulfate mL -- 100 -- Oral Intake mL -- 690 380 Sodium Chloride 0.9% mL -- -- 1,000 Sodium Chloride 0.9% intravenous solution 1,000 mL mL -- -- 820 Sodium Chloride 0.9%, remdesivir mL 250 250 250 dexamethasone mL 1.5 1.5 1.5 ondansetron mL -- 6 -- Total 251.5 1,047.5 2,451.5 Output (2) Urine Output Initial mL 200 -- -- Urine Voided mL -- 1,325 3 Total 200 1,325 3 Counts (1) Stool Count -- 3 2 * This column has not completed the indicated time period. Physical Exam General: alert, mild distress Skin: warm, dry Head: no trauma, normocephalic Neck: Trachea midline, no adenopathy, no tenderness Eye: normal conjunctiva, sclera clear ENMT: oral mucosa moist, no pharyngeal erythema or exudate Cardiovascular: regular rate and rhythm, normal peripheral perfusion Respiratory: Lungs diminished t/o all lung blue, respirations non labored at rest - does exertional dyspnea and desaturation to the mid 80s with activity Chest wall: no deformity. Gastrointestinal: soft, non distended, no tenderness, no guarding. Back: No tenderness, Normal ROM, Normal alignment. Extremities: no deformity, no trauma Neurological: oriented x 4, LOC appropriate for age, motor strength equal & normal bilaterally, sensation equal & normal bilaterally, speech normal Psychiatric: cooperative, affect appropriate for age, normal judgement, normal psychiatric thoughts. Lab Results D-Dimer: 968 ng/mL Critical (04/30/20 06:08:00) Alk Phos: 94 Int._Unit/L (04/30/20 06:08:00) ALT: 18 Int._Unit/L (04/30/20 06:08:00) AST: 20 Int._Unit/L (04/30/20 06:08:00) Total Protein: 7 gm/dL (04/30/20 06:08:00) Albumin Lvl: 2.9 gm/dL Low (04/30/20 06:08:00) Globulin: 4.1 gm/dL High (04/30/20 06:08:00) A/G Ratio: 0.7 Low (04/30/20 06:08:00) Bili Total: 0.4 mg/dL (04/30/20 06:08:00) Bili Direct: <0.1 (04/30/20 06:08:00) Bili Indirect: Unable to Calculate Abnormal (04/30/20 06:08:00) CRP: 16.5 mg/dL High (04/30/20 06:08:00) LDH: 321 Int._Unit/L High (04/30/20 06:08:00) Ferritin Lvl: 150 ng/mL (04/30/20 06:08:00) Glucose Cap: 290 mg/dL High (04/30/20 13:41:00) POC Device SN: [id number] (04/30/20 13:41:00) POC User ID: [id number] (04/30/20 13:41:00) POC Username: HECTOR WEST (04/30/20 13:41:00) UA Spec Desc: Garcia (04/30/20 10:00:00) UA Color: Yellow2 (04/30/20 10:00:00) UA Clarity: Clear2 (04/30/20 10:00:00) UA Spec Grav: 1.025 (04/30/20 10:00:00) UA pH: 6.5 (04/30/20 10:00:00) UA Protein: Trace2 Abnormal (04/30/20 10:00:00) UA Glucose: NEGATIVE1 (04/30/20 10:00:00) UA Ketones: NEGATIVE1 (04/30/20 10:00:00) UA Bili: NEGATIVE1 (04/30/20 10:00:00) UA Blood: NEGATIVE1 (04/30/20 10:00:00) UA Nitrite: NEGATIVE1 (04/30/20 10:00:00) UA Urobilinogen: 0.2 (04/30/20 10:00:00) UA Leuk Est: NEGATIVE1 (04/30/20 10:00:00) UA RBC: 0-3 (04/30/20 10:00:00) UA Squam Epithelial: 0-2 (04/30/20 10:00:00) UA WBC: 0-5 (04/30/20 10:00:00) UA Bacteria: Trace2 (04/30/20 10:00:00) UA Amorph Liberty: Present (04/30/20 10:00:00) UA Mucous: 1+ (04/30/20 10:00:00) Images (04/28/2020 11:53 EST CTA Chest) *Final Report * Reason For Exam PE suspected, high prob;Other (please specify) POWERSCRIBE REPORT IMPRESSION: NO CT EVIDENCE OF PULMONARY EMBOLISM. MILDLY ENLARGED MEDIASTINAL AND RIGHT HILAR LYMPH NODES, AND IN LIGHT OF THE EXTENSIVE LUNG FINDINGS, THE LYMPH NODES ARE SUSPECTED TO BE REACTIVE IN NATURE. THE LYMPH NODES COULD BE FURTHER ASSESSED WITH A FOLLOW-UP STUDY AFTER RESOLUTION OF THE LUNG FINDINGS. INCREASED DENSITIES EXTENSIVELY SCATTERED IN BOTH LUNGS, CONSISTENT WITH INFILTRATIVE CHANGES, WITH COVID 19 PNEUMONIA MOST LIKELY. CLINICAL HISTORY: PE suspected, high prob. Shortness of breath. Covid 19 positive. COMMENT: Axial images were obtained after the rapid injection of IV contrast with narrow collimation and reconstructed at a narrow interval. Coronal and sagittal reconstructions were performed. On the PACS, images were reviewed in cine display and using MIP postprocessing. Although the concentration of contrast material within the pulmonary arterial system is not optimal, there is sufficient contrast opacification of the pulmonary arteries, and no intraluminal filling defects are noted. The thoracic aorta is normal in diameter, without evidence of aneurysm or dissection. The heart is upper limits of normal in size. No pericardial effusion is noted. There are small nonspecific bilateral axillary lymph nodes. There are multiple mediastinal lymph nodes, with many of the mediastinal lymph small,, but there are enlarged paratracheal, paracarinal, and subcarinal mediastinal lymph nodes. There also are mildly enlarged right hilar lymph nodes. Left hilar lymph nodes are small and nonspecific. There are multiple irregular areas of increased density scattered throughout both lungs, from the apices to the bases, and in both peripheral and central locations. Most of the areas of increased density are groundglass opacifications, but there are a few areas of denser airspace opacification. The bilateral lung findings are nonspecific, but in light of the clinical history, are most probably due to Covid 19 pneumonia. No pneumothorax nor pleural effusion is evident. No lung mass is delineated, but the extensive areas of airspace opacification limit evaluation for a small lung mass. Superior portions of the liver and spleen are included within the [id number]. There is diffuse fatty infiltration of the visualized portion of the liver. The visualized portion of the spleen appears within normal limits in size. All CT scans at this facility use dose modulation, iterative reconstruction, and/or weight based dosing when appropriate to reduce radiation dose to as low as reasonably achievable. [facility] FINAL REPORT Dictated: 04/28/2020 12:10 pm Dino Arce M.D. [1] Assessment/Plan 1. Acute respiratory failure with hypoxia (J96.01: Acute respiratory failure with hypoxia) Secondary to COVID 19 pneumonia Diagnosed with COVID virus on Apr 24. Now with subjective fever, SOB and exertional dyspnea, N/D + headache Presents to the ED for further evaluation - hypoxic on r/a - abg with pAo2 of 49 on R/A Initiated on HiFlo support. CT scan obtained negative for PE - however + for diffuse covid 19 penumonia Admitted to the ICU - started on appropriate regimen as follows Pro-Camelia has been assessed and is negative 1/6 nausea and headache have diminished. Attempting to take nutrition. Cooperating with current regimen. Maintained on 50 L / 60% FiO2 Has been initiated on Remdesivir + Barcitinib and Dexamethasone Continue to monitor inflammatory markers LFTs and renal indices, Lovenox for DVT prophylaxis Continued on Hi Nancy -titrate for saturation of 92% and higher Attempting to lay on side and will prone position Attempting to mobilize (does have desaturation to mid 80's - with recovery in 1 - 2 minutes) Will need to continue to monitor inflammatory markers + LFT + renal indices Reports intolerance to Albuterol and does use budesonide inhaler as outpatient Will start as budesonide- BID Zofran for nausea 2. Allergic asthma (J45.909: Unspecified asthma, uncomplicated) Since a child - however never assessed by Pulmonology - seasonal and exposure to perfumes provoke asthma Home regimen of Budesonide PRN - has been taking 3 - 4 x daily over the past week 3. Pneumonia due to COVID-19 virus (U07.1: COVID-19) Plan as #1 4. Hyponatremia (E87.1: Hypo-osmolality and hyponatremia) Likely secondary to dehydration d/t bouts of diarrhea Taking PO fluids as tolerated - continue to monitor 5. Hypertension (I10: Essential (primary) hypertension) 6. Chronic GERD (K21.9: Gastro-esophageal reflux disease without esophagitis) 7. Depression with anxiety (F41.8: Other specified anxiety disorders) 8. Morbid obesity due to excess calories (E66.01: Morbid (severe) obesity due to excess calories) 9. No contraindication to deep vein thrombosis (DVT) prophylaxis (Z78.9: Other specified health status) Critical Care Time 35 minutes Case was discussed with Dr. Kate and agrees with above plan Problem List/Past Medical History Ongoing Anxiety Asthma Chronic GERD Depression with anxiety Headache Hypertension Morbid obesity due to excess calories Morbid obesity with body mass index of 50 or higher Historical No qualifying data Medications Inpatient acetaminophen 325 mg Tab, 650 mg= 2 tab(s), Oral, q6hr, PRN Al hydroxide/Mg hydroxide/simethicone 200 mg-200 mg-20 mg/5 mL oral suspension, 30 mL, Oral, q6hr, PRN amLODIPine 10 mg Tab, 10 mg= 1 tab(s), Oral, Daily atenolol 25 mg Tab, 25 mg= 1 tab(s), Oral, Daily baricitinib 2 mg oral tablet, 4 mg= 2 tab(s), Oral, Daily budesonide 0.25 mg/2 mL Inh Susp, 0.25 mg= 2 mL, NEB, BID busPIRone 10 mg Tab, 15 mg= 1.5 tab(s), Oral, TID Cymbalta 60 mg Cap-DR, 60 mg= 1 cap(s), Oral, Daily dexamethasone 4 mg/mL Inj 1 mL, 6 mg= 1.5 mL, IV Push, Daily Dextrose 50% Soln-IV, 40 mL, IV Push, Once, PRN gabapentin 400 mg Cap, 400 mg= 1 cap(s), Oral, TID HumaLOG Sliding Scale, 0-10 Units, SubCutaneous, QIDACHS ibuprofen 800 mg Tab, 800 mg= 1 tab(s), Oral, BID Lovenox 40 mg/0.4 mL SC Darshana, 40 mg= 0.4 mL, SubCutaneous, Daily Milk of Magnesia 8% Susp-Oral, 30 mL, Oral, q6hr, PRN Mucinex 600 mg Tab-ER, 1200 mg= 2 tab(s), Oral, BID remdesivir additive + Sodium Chloride 0.9% intravenous solution 250 mL Zofran 4 mg/2 mL Injection, 4 mg= 2 mL, IV Push, q6hr, PRN Home albuterol 0.083% Inh Darshana 3 mL, 2.5 mg= 3 mL, Inhalation amLODIPine 10 mg Tab, Oral, Daily atenolol 25 mg Tab, Oral, Daily budesonide 90 mcg/inh inhalation powder, 2 puff(s), Inhalation, q4hr busPIRone, 15 mg, Oral, TID cyclobenzaprine, 10 mg, Oral, Daily, Still taking, not as prescribed: per patient takes as needed JRuby duloxetine 60 mg Cap-DR, 1 cap(s), Oral, Daily gabapentin 400 mg Cap, 400 mg= 1 cap(s), Oral, TID ibuprofen 800 mg Tab, Oral, BID predniSONE 20 mg Tab, 20 mg= 1 tab(s), Oral, As Directed, Not taking: per patient she still has to pick this medication up from the pharmacy [facility] Vitamin C, 1tablet, Oral, Daily, Self Directed I have seen and evaluated the patient with the nurse practitioner. Her history, physical exam, assessment and plan were done in collaboration. I performed an independent physical examination. I agree with all the above. Acute hypoxic respiratory failure: Likely secondary to Covid pneumonia. Agree with current treatment with remdesivir, baricitinib and dexamethasone. Critical care time was 32 minutes. [facility] Comment on above: Result Comment: Elec tronically Signed By: Humble WALTON, Phu Bo\.br\Date and Time Signed: 04/30/20 18:20 EST Progress Note-Physician Assessment/Plan 1. Acute respiratory failure with hypoxia (J96.01: Acute respiratory failure with hypoxia) - PaO2 49 on ABG on RA - on admission - secondary to bilateral covid 19 pneumonia - remdesivir, decadron, baricitinib day 3 - monitor inflammatory markers, LFT - high flow oxygen, titrate for O2 sat greater than 92% - currently on high flow 45 liters and 60%, O2 sat 94% - IS, out of bed to chair TID with meals - d/w pulmonary 2. Allergic asthma (J45.909: Unspecified asthma, uncomplicated) - stable, not in acute exacerbation 3. Pneumonia due to COVID-19 virus (U07.1: COVID-19) - as above 4. Hyponatremia (E87.1: Hypo-osmolality and hyponatremia) - stable, stopped IVF, encourage PO intake 5. Hypertension (I10: Essential (primary) hypertension) - norvasc, atenolol, lisinopril/hctz 6. Chronic GERD (K21.9: Gastro-esophageal reflux disease without esophagitis) - protonix 7. Depression with anxiety (F41.8: Other specified anxiety disorders) - lindsey lu 8. Morbid obesity due to excess calories (E66.01: Morbid (severe) obesity due to excess calories) - BMI 53 - lifestyle modification, outpatient PCP follow up 9. No contraindication to deep vein thrombosis (DVT) prophylaxis (Z78.9: Other specified health status) - SCDs, lovenox Orders: Patient Specific Meds, Misc, Misc, Once, Stop date 04/29/20 11:53:23 EST, Physician Stop, 04/29/20 11:53:23 EST Sodium Chloride 0.9% intravenous solution, Soln-IV, Misc, Once, Stop date 04/29/20 12:04:36 EST, Physician Stop, 04/29/20 12:04:36 EST Ambulate with Assistance C-Reactive Protein C-Reactive Protein Capillary Glucose POC Capillary Glucose POC Capillary Glucose POC Capillary Glucose POC Capillary Glucose POC D-Dimer D-Dimer Ferritin Ferritin Ferritin Hepatic Function Panel Hepatic Function Panel Lactate Dehydrogenase Lactate Dehydrogenase Urinary Catheter Insertion Subjective Pt says overnight had some sob when getting up to commode to urinate. Took time to recover. No CP. taking PO with no nausea or vomiting. has been proning, up in chair yesterday. Review of Systems Constitutional: No fevers, chills Eye: Negative. Ear/Nose/Mouth/Throat : Negative. Respiratory: sob Cardiovascular: Negative. Gastrointestinal: Negative. Genitourinary: Negative. Immunologic: Negative. Musculoskeletal: Negative. Integumentary: Negative. Neurologic: Negative. Psychiatric: Negative. All other systems are negative Objective Vitals & Measurements T: 37 ?C (Oral) TMIN: 35.5 ?C (Oral) TMAX: 37.2 ?C (Oral) HR: 66(Monitored) RR: 20 BP: 96/55 SpO2: 94% Intake & Output This visit (24 hour periods starting at 07:00 EST) 04/30/20 * 04/29/20 04/28/20 Total Summary Intake mL 1.5 1,047.5 2,451.5 Output mL 200 1,325 3 Fluid Balance -198.5 -277.5 2,448.5 Intake (7) Dextrose 5% in Water, magnesium sulfate mL -- 100 -- Oral Intake mL -- 690 380 Sodium Chloride 0.9% mL -- -- 1,000 Sodium Chloride 0.9% intravenous solution 1,000 mL mL -- -- 820 Sodium Chloride 0.9%, remdesivir mL -- 250 250 dexamethasone mL 1.5 1.5 1.5 ondansetron mL -- 6 -- Total 1.5 1,047.5 2,451.5 Output (2) Urine Output Initial mL 200 -- -- Urine Voided mL -- 1,325 3 Total 200 1,325 3 Counts (1) Stool Count -- 3 2 * This column has not completed the indicated time period. Physical Exam General: alert, no acute distress ENMT: oral mucosa moist, no pharyngeal erythema or exudate Cardiovascular: regular rate and rhythm, normal peripheral perfusion Respiratory: Lungs rhonci bilaterally , respirations non labored Abdomen: soft, NTND, +BS Skin: warm, dry, intact Extremities: no deformity, no trauma Neurological: LOC appropriate for age, CN II-XII intact, motor strength equal & normal bilaterally, sensation equal & normal bilaterally, speech normal Lab Results D-Dimer: 968 ng/mL Critical (04/30/20 06:08:00) Alk Phos: 94 Int._Unit/L (04/30/20 06:08:00) ALT: 18 Int._Unit/L (04/30/20 06:08:00) AST: 20 Int._Unit/L (04/30/20 06:08:00) Total Protein: 7 gm/dL (04/30/20 06:08:00) Albumin Lvl: 2.9 gm/dL Low (04/30/20 06:08:00) Globulin: 4.1 gm/dL High (04/30/20 06:08:00) A/G Ratio: 0.7 Low (04/30/20 06:08:00) Bili Total: 0.4 mg/dL (04/30/20 06:08:00) Bili Direct: <0.1 (04/30/20 06:08:00) Bili Indirect: Unable to Calculate Abnormal (04/30/20 06:08:00) CRP: 16.5 mg/dL High (04/30/20 06:08:00) LDH: 321 Int._Unit/L High (04/30/20 06:08:00) Ferritin Lvl: 150 ng/mL (04/30/20 06:08:00) Glucose Cap: 114 mg/dL High (04/30/20 08:06:00) POC Device SN: [id number] (04/30/20 08:06:00) POC User ID: [id number] (04/30/20 08:06:00) POC Username: HECTOR WEST (04/30/20 08:06:00) UA Spec Desc: Garcia (04/30/20 10:00:00) UA Color: Yellow2 (04/30/20 10:00:00) UA Clarity: Clear2 (04/30/20 10:00:00) UA Spec Grav: 1.025 (04/30/20 10:00:00) UA pH: 6.5 (04/30/20 10:00:00) UA Protein: Trace2 Abnormal (04/30/20 10:00:00) UA Glucose: NEGATIVE1 (04/30/20 10:00:00) UA Ketones: NEGATIVE1 (04/30/20 10:00:00) UA Bili: NEGATIVE1 (04/30/20 10:00:00) UA Blood: NEGATIVE1 (04/30/20 10:00:00) UA Nitrite: NEGATIVE1 (04/30/20 10:00:00) UA Urobilinogen: 0.2 (04/30/20 10:00:00) UA Leuk Est: NEGATIVE1 (04/30/20 10:00:00) UA RBC: 0-3 (04/30/20 10:00:00) UA Squam Epithelial: 0-2 (04/30/20 10:00:00) UA WBC: 0-5 (04/30/20 10:00:00) UA Bacteria: Trace2 (04/30/20 10:00:00) UA Amorph Liberty: Present (04/30/20 10:00:00) UA Mucous: 1+ (04/30/20 10:00:00) Problem List/Past Medical History Ongoing Anxiety Asthma Chronic GERD Depression with anxiety Headache Hypertension Morbid obesity due to excess calories Morbid obesity with body mass index of 50 or higher Historical No qualifying data Medications Inpatient acetaminophen 325 mg Tab, 650 mg= 2 tab(s), Oral, q6hr, PRN Al hydroxide/Mg hydroxide/simethicone 200 mg-200 mg-20 mg/5 mL oral suspension, 30 mL, Oral, q6hr, PRN amLODIPine 10 mg Tab, 10 mg= 1 tab(s), Oral, Daily atenolol 25 mg Tab, 25 mg= 1 tab(s), Oral, Daily baricitinib 2 mg oral tablet, 4 mg= 2 tab(s), Oral, Daily budesonide 0.25 mg/2 mL Inh Susp, 0.25 mg= 2 mL, NEB, BID busPIRone 10 mg Tab, 15 mg= 1.5 tab(s), Oral, TID Cymbalta 60 mg Cap-DR, 60 mg= 1 cap(s), Oral, Daily dexamethasone 4 mg/mL Inj 1 mL, 6 mg= 1.5 mL, IV Push, Daily Dextrose 50% Soln-IV, 40 mL, IV Push, Once, PRN gabapentin 400 mg Cap, 400 mg= 1 cap(s), Oral, TID HumaLOG Sliding Scale, 0-10 Units, SubCutaneous, QIDACHS ibuprofen 800 mg Tab, 800 mg= 1 tab(s), Oral, BID Lovenox 40 mg/0.4 mL SC Darshana, 40 mg= 0.4 mL, SubCutaneous, Daily Milk of Magnesia 8% Susp-Oral, 30 mL, Oral, q6hr, PRN Mucinex 600 mg Tab-ER, 1200 mg= 2 tab(s), Oral, BID remdesivir additive + Sodium Chloride 0.9% intravenous solution 250 mL Zofran 4 mg/2 mL Injection, 4 mg= 2 mL, IV Push, q6hr, PRN Home albuterol 0.083% Inh Darshana 3 mL, 2.5 mg= 3 mL, Inhalation amLODIPine 10 mg Tab, Oral, Daily atenolol 25 mg Tab, Oral, Daily budesonide 90 mcg/inh inhalation powder, 2 puff(s), Inhalation, q4hr busPIRone, 15 mg, Oral, TID cyclobenzaprine, 10 mg, Oral, Daily, Still taking, not as prescribed: per patient takes as needed Hernán duloxetine 60 mg Cap-DR, 1 cap(s), Oral, Daily gabapentin 400 mg Cap, 400 mg= 1 cap(s), Oral, TID ibuprofen 800 mg Tab, Oral, BID predniSONE 20 mg Tab, 20 mg= 1 tab(s), Oral, As Directed, Not taking: per patient she still has to pick this medication up from the pharmacy Hernán Vitamin C, 1tablet, Oral, Daily, Self Directed pt with sepsis on admission secondary to covid 19 pneumonia Normal [facility] Comment on above: Result Comment: Elec tronically Signed By: CAITLIN WALTON, Isa\.br\Date and Time Signed: 04/30/20 10:48 EST UA With Cult Reflexon 2020 Bacteria LM Ql (Urine sed) TRACE Normal Trace [facility] Comment on above: Order Comment: Urina ry Catheter Insertion triggered Urinalysis With Culture Reflex order by discern. Performed By: #### 1 [id number] #### [facility] [address] [place] [address] Bilirubin Ql (U) Negative Normal Negative [facility] Comment on above: Order Comment: Urina ry Catheter Insertion triggered Urinalysis With Culture Reflex order by discern. Performed By: #### 1 [id number] #### [facility] [address] [place] [address] Clarity (U) CLEAR Normal Clear [facility] Comment on above: Order Comment: Urina ry Catheter Insertion triggered Urinalysis With Culture Reflex order by discern. Performed By: #### 1 [id number] #### [facility] [address] [place] [address] Color (U) YELLOW Normal Yellow [facility] Comment on above: Order Comment: Urina ry Catheter Insertion triggered Urinalysis With Culture Reflex order by discern. Performed By: #### 1 [id number] #### [facility] [address] [place] [address] Crystals LM Ql (Urine sed) Present Normal [facility] Comment on above: Order Comment: Urina ry Catheter Insertion triggered Urinalysis With Culture Reflex order by discern. Performed By: #### 1 [id number] #### [facility] [address] [place] [address] Epithelial cells.squamous LM.HPF (Urine sed) [#/Area] 0-2 Normal 0-2 [facility] Comment on above: Order Comment: Urina ry Catheter Insertion triggered Urinalysis With Culture Reflex order by discern. Performed By: #### 1 [id number] #### [facility] [address] [place] [address] Glucose Test strip (U) [Mass/Vol] Negative Normal Negative [facility] Comment on above: Order Comment: Urina ry Catheter Insertion triggered Urinalysis With Culture Reflex order by discern. Performed By: #### 1 [id number] #### [facility] [address] [place] [address] Hemoglobin Ql (U) Negative Normal Negative [facility] Comment on above: Order Comment: Urina ry Catheter Insertion triggered Urinalysis With Culture Reflex order by discern. Performed By: #### 1 [id number] #### [facility] [address] [place] [address] Ketones (U) [Mass/Vol] Negative Normal Negative [facility] Comment on above: Order Comment: Urina ry Catheter Insertion triggered Urinalysis With Culture Reflex order by discern. Performed By: #### 1 [id number] #### [facility] [address] [place] [address] [place].plasma/[place]. RBC (Bld) [Mass ratio] 0-3 Normal 0-3 [facility] Comment on above: Order Comment: Urina ry Catheter Insertion triggered Urinalysis With Culture Reflex order by discern. Performed By: #### 1 [id number] #### [facility] [address] [place] [address] Mucus Ql (Urine sed) 1+ Normal [facility] Comment on above: Order Comment: Urina ry Catheter Insertion triggered Urinalysis With Culture Reflex order by discern. Performed By: #### 1 [id number] #### [facility] [address] [place] [address] Nitrite Ql (U) Negative Normal Negative [facility] Comment on above: Order Comment: Urina ry Catheter Insertion triggered Urinalysis With Culture Reflex order by discern. Performed By: #### 1 [id number] #### [facility] [address] [place] [address] pH (U) 6.5 [pH] 5.0-9.0 [facility] Comment on above: Order Comment: Urina ry Catheter Insertion triggered Urinalysis With Culture Reflex order by discern. Performed By: #### 1 [id number] #### [facility] [address] [place] [address] Protein (U) [Mass/Vol] TRACE Abnormal Negative [facility] Comment on above: Order Comment: Urina ry Catheter Insertion triggered Urinalysis With Culture Reflex order by discern. Performed By: #### 1 [id number] #### [facility] [address] [place] [address] Specific gravity (U) [Rel density] 1.025 1.005-1.030 [facility] Comment on above: Order Comment: Urina ry Catheter Insertion triggered Urinalysis With Culture Reflex order by discern. Performed By: #### 1 [id number] #### [facility] [address] [place] [address] UA Spec Desc Garcia Normal [facility] Comment on above: Order Comment: Urina ry Catheter Insertion triggered Urinalysis With Culture Reflex order by discern. Performed By: #### 1 [id number] #### [facility] [address] [place] [address] Urobilinogen Qn (U) 0.2 {Joe'U}/dL Normal 0.0-1.0 [facility] Comment on above: Order Comment: Urina ry Catheter Insertion triggered Urinalysis With Culture Reflex order by discern. Performed By: #### 1 [id number] #### [facility] [address] [place] [address] WBC Auto Ql (U) Negative Normal Negative [facility] Comment on above: Order Comment: Urina ry Catheter Insertion triggered Urinalysis With Culture Reflex order by discern. Performed By: #### 1 [id number] #### [facility] [address] [place] [address] WBC LM.HPF (Urine sed) [#/Area] 0-5 Normal 0-5 [facility] Comment on above: Order Comment: Urina ry Catheter Insertion triggered Urinalysis With Culture Reflex order by discern. Performed By: #### 1 [id number] #### [facility] [address] [place] [address] CMPon 04-29-2020 Albumin [Mass/Vol] 0.7 g/dL Low 1.1-2.2 [facility] Comment on above: Performed By: #### 1 [id number], [id number], [id number] #### [facility] [address] [place] [address] Albumin [Mass/Vol] 3.3 g/dL Normal 3.3-5.0 [facility] Comment on above: Performed By: #### 1 [id number], [id number], [id number] #### [facility] [address] [place] [address] ALP [Catalytic activity/Vol] 109 Int._Unit/L High 21-98 [facility] Comment on above: Performed By: #### 1 [id number], [id number], [id number] #### [facility] [address] [place] [address] ALT No additional P-5'-P [Catalytic activity/Vol] 19 Int._Unit/L Normal 6-46 [facility] Comment on above: Performed By: #### 1 [id number], [id number], [id number] #### [facility] [address] [place] [address] Anion gap [Moles/Vol] 12 mmol/L Normal 6-16 [facility] Comment on above: Performed By: #### 1 [id number], [id number], [id number] #### [facility] [address] [place] [address] AST [Catalytic activity/Vol] 20 Int._Unit/L Normal 5-43 [facility] Comment on above: Performed By: #### 1 [id number], [id number], [id number] #### [facility] [address] [place] [address] Bilirubin [Mass/Vol] 0.6 mg/dL Normal 0.0-1.1 [facility] Comment on above: Performed By: #### 1 [id number], [id number], [id number] #### [facility] [address] [place] [address] Calcium [Mass/Vol] 8.5 mg/dL Low 8.9-11.1 [facility] Comment on above: Performed By: #### 1 [id number], [id number], [id number] #### [facility] [address] [place] [address] Chloride [Moles/Vol] 101 mmol/L Normal 101-111 [facility] Comment on above: Performed By: #### 1 [id number], [id number], [id number] #### [facility] [address] [place] [address] CO2 [Moles/Vol] 25 mmol/L Normal 21-31 [facility] Comment on above: Performed By: #### 1 [id number], [id number], 5664912 #### [facility] [address] [place] [address] Creatinine [Mass/Vol] 0.6 mg/dL Normal 0.5-1.3 [facility] Comment on above: Performed By: #### 1 [id number], 8666739, [id number] #### [facility] [address] [place] [address] Globulin (S) [Mass/Vol] 4.6 g/dL High 1.4-4.0 F [facility] Comment on above: Performed By: #### 1 [id number], [id number], [id number] #### [facility] [address] [place] [address] Glucose [Mass/Vol] 199 mg/dL Normal 55-199 [facility] Comment on above: Result Comment: If t his glucose result represents a fasting glucose, interpretation should refer to the following reference range: 55-99 mg/dL Performed By: #### 1 [id number], [id number], [id number] #### [facility] [address] [place] [address] Potassium [Moles/Vol] 3.6 mmol/L Normal 3.5-5.3 [facility] Comment on above: Performed By: #### 1 [id number], 9374718, [id number] #### [facility] [address] [place] [address] Protein [Mass/Vol] 7.9 g/dL High 6.0-7.8 [facility] Comment on above: Performed By: #### 1 [id number], 0433285, [id number] #### [facility] [address] [place] [address] Sodium [Moles/Vol] 134 mmol/L Low 135-145 [facility] Comment on above: Performed By: #### 1 [id number], 5934969, [id number] #### [facility] [address] [place] [address] Urea nitrogen [Mass/Vol] 12 mg/dL Normal 5-21 [facility] Comment on above: Performed By: #### 1 [id number], [id number], 2453450 #### [facility] [address] [place] [address] Urea nitrogen/Creatinine [Mass ratio] 20 No Units Normal 10-20 [facility] Comment on above: Performed By: #### 1 [id number], 1453949, [id number] #### [facility] [address] [place] [address] CRPon 04-29-2020 CRP [Mass/Vol] 21.1 mg/dL High <=1.9 [facility] Comment on above: Performed By: #### 1 [id number], 1035898, 4066576 #### [facility] [address] [place] [address] Capillary Glucose POCon Glucose [Mass/Vol] 180 mg/dL High 55-99 [facility] Comment on above: Result Comment: Jamila nikita Meter Performed By: #### 2 [id number] ####[facility] [address] [place] [address] Glucose [Mass/Vol] 193 mg/dL High 55-99 [facility] Comment on above: Result Comment: Repe at Test Performed By: #### 1 [id number], 9762229, [id number] #### [facility] [address] [place] [address] Glucose [Mass/Vol] 217 mg/dL High 55-99 [facility] Comment on above: Result Comment: Jamila shelton Meter Performed By: #### 2 [id number] ####[facility] [address] [place] [address] Consultation Noteon 04-29-19 Consultation Note Chief Complaint Pt here for SOB. Pt is covid +, here for increased work of breathing. Pt was taking steriod thought to be getting better but woke up today with difficulty. O2 on ra was 90% Reason for Consultation Acute Hypoxia Respiratory Failure - Covid positive History of Present Illness 40 year old female with significant past medical history of asthma since a child reports has an intolerance to albuterol and has been prescribed budesonide, reports that on age she may take this as needed inhaler 1 to 3 times a week dependent on time of year and exposure and does go weeks intermittently without using. She is a reformed smoker (age of 16 - 34) approximately 1 pack a day for 18 years. Quit 6 years ago. Has never had a PFT or evaluation by a Wash Test Checker, followed closely by her family physician. She presents to the [facility] ED with a known positive COVID test. Reports SOB, exertional dyspnea, and found to hypoxic in the ED required initiation of high flow oxygen. CT scan negative for PE, diffuse COVID pneumonia t/o bilateral lung blue. Since admission to the ICU has maintained on Hi nancy. Inflammatory markers have increased. Procal has resulted low suspicion for concurrent bacterial pneumonia. patient is cooperative with care - attempting to side lie and will prone with assistance. Appropriate regimen has been initiated. On interview reports that she feels improved since presentation. Denies loss of taste or smell. Does have nausea and had 2 days of diarrhea prior to admission, dry nonproductive cough. Review of Systems Constitutional: no fever, no chills, no sweats, moderate weakness Skin: no Jaundice, no rash, no lesions, nopetechiae ENMT: no ear pain, no sore throat, moderate congestion, no hoarseness Respiratory: moderate shortness of breath, moderate cough, no orthopnea, no wheezing Cardiovascular: no chest pain, no palpitations, no edema Gastrointestinal: moderate nausea, no vomiting, moderate diarrhea, no GI bleeding Genitourinary: no dysuria, no hematuria, no discharge, no pain Musculoskeletal: no back pain, no trauma Neurologic: no headache, no dizziness, no numbness, no weakness Psychiatric: moderate sleeping problems, no irritability, no mood swings/depression. Heme/Lymph: no bleeding tendency, no bruising tendency, no petechiae, no swollen nodes Allergy/Immunologic: no seasonal allergies, no food allergies, no recurrent infections, no impaired immunity Additional ROS info: Except as noted in the above Review of Systems and in the History of Present Illness all other systems have been reviewed and are negative or noncontributory. Physical Exam Vitals & Measurements T: 37.3 ?C (Oral) TMIN: 36.9 ?C (Oral) TMAX: 38.5 ?C (Oral) HR: 86(Monitored) RR: 22 BP: 137/88 SpO2: 99% WT: 129.2 kg General: alert, mild distress Skin: warm, dry Head: no trauma, normocephalic Neck: Trachea midline, no adenopathy, no tenderness Eye: normal conjunctiva, sclera clear ENMT: oral mucosa moist, no pharyngeal erythema or exudate Cardiovascular: regular rate and rhythm, normal peripheral perfusion Respiratory: Lungs diminished t/o all lung blue, respirations non labored at rest - does exertional dyspnea and desaturation to the mid 80s with activity Chest wall: no deformity. Gastrointestinal: soft, non distended, no tenderness, no guarding. Back: No tenderness, Normal ROM, Normal alignment. Extremities: no deformity, no trauma Neurological: oriented x 4, LOC appropriate for age, CN II-XII intact, motor strength equal & normal bilaterally, sensation equal & normal bilaterally, speech normal Psychiatric: cooperative, affect appropriate for age, normal judgement, normal psychiatric thoughts. Images (04/28/2020 11:53 EST CTA Chest) * Final Report * Reason For Exam PE suspected, high prob;Other (please specify) POWERSCRIBE REPORT IMPRESSION: NO CT EVIDENCE OF PULMONARY EMBOLISM. MILDLY ENLARGED MEDIASTINAL AND RIGHT HILAR LYMPH NODES, AND IN LIGHT OF THE EXTENSIVE LUNG FINDINGS, THE LYMPH NODES ARE SUSPECTED TO BE REACTIVE IN NATURE. THE LYMPH NODES COULD BE FURTHER ASSESSED WITH A FOLLOW-UP STUDY AFTER RESOLUTION OF THE LUNG FINDINGS. INCREASED DENSITIES EXTENSIVELY SCATTERED IN BOTH LUNGS, CONSISTENT WITH INFILTRATIVE CHANGES, WITH COVID 19 PNEUMONIA MOST LIKELY. CLINICAL HISTORY: PE suspected, high prob. Shortness of breath. Covid 19 positive. COMMENT: Axial images were obtained after the rapid injection of IV contrast with narrow collimation and reconstructed at a narrow interval. Coronal and sagittal reconstructions were performed. On the PACS, images were reviewed in cine display and using MIP postprocessing. Although the concentration of contrast material within the pulmonary arterial system is not optimal, there is sufficient contrast opacification of the pulmonary arteries, and no intraluminal filling defects are noted. The thoracic aorta is normal in diameter, without evidence of aneurysm or dissection. The heart is upper limits of normal in size. No pericardial effusion is noted. There are small nonspecific bilateral axillary lymph nodes. There are multiple mediastinal lymph nodes, with many of the mediastinal lymph small,, but there are enlarged paratracheal, paracarinal, and subcarinal mediastinal lymph nodes. There also are mildly enlarged right hilar lymph nodes. Left hilar lymph nodes are small and nonspecific. There are multiple irregular areas of increased density scattered throughout both lungs, from the apices to the bases, and in both peripheral and central locations. Most of the areas of increased density are groundglass opacifications, but there are a few areas of denser airspace opacification. The bilateral lung findings are nonspecific, but in light of the clinical history, are most probably due to Covid 19 pneumonia. No pneumothorax nor pleural effusion is evident. No lung mass is delineated, but the extensive areas of airspace opacification limit evaluation for a small lung mass. Superior portions of the liver and spleen are included within the [id number]. There is diffuse fatty infiltration of the visualized portion of the liver. The visualized portion of the spleen appears within normal limits in size. All CT scans at this facility use dose modulation, iterative reconstruction, and/or weight based dosing when appropriate to reduce radiation dose to as low as reasonably achievable. Signature Line FINAL REPORT Dictated: 04/28/2020 12:10 pm Dino Arce M.D. [1] Assessment/Plan 1. Acute respiratory failure with hypoxia (J96.01: Acute respiratory failure with hypoxia) Secondary to COVID 19 pneumonia Diagnosed with COVID virus on Apr 24. Now with subjective fever, SOB and exertional dyspnea, N/D + headache Presents to the ED for further evaluation - hypoxic on r/a - abg with pAo2 of 49 on R/A Initiated on HiFlo support. CT scan obtained negative for PE - however + for diffuse covid 19 penumonia Admitted to the ICU - started on appropriate regimen as follows Has been initiated on Remdesivir + Barcitinib and Dexamethasone Lovenox for DVT prophylaxis Procal has been assessed and is negative Continued on Hi Nancy Attempting to lay on side and will prone position Attempting to mobilize (does have desaturation to mid 80's - with recovery in 1 - 2 minutes) Will need to continue to monitor inflammatory markers + LFT + renal indices Reports intolerance to Albuterol and does use budesonide inhaler as outpatient Will start as inpatient - BID Zofran for nausea 1 gram Mag and acetaminophen this AM for Headache 2. Allergic asthma (J45.909: Unspecified asthma, uncomplicated) Since a child - however never assessed by Pulmonology - seasonal and exposure to perfumes provoke asthma Home regimen of Budesonide PRN - has been taking 3 - 4 x daily over the past week 3. Pneumonia due to COVID-19 virus (U07.1: COVID-19) Plan as #1 4. Hyponatremia (E87.1: Hypo-osmolality and hyponatremia) Likely secondary to dehydration d/t bouts of diarrhea Taking PO fluids as tolerated - continue to monitor 5. Hypertension (I10: Essential (primary) hypertension) 6. Chronic GERD (K21.9: Gastro-esophageal reflux disease without esophagitis) 7. Depression with anxiety (F41.8: Other specified anxiety disorders) 8. Morbid obesity due to excess calories (E66.01: Morbid (severe) obesity due to excess calories) 9. No contraindication to deep vein thrombosis (DVT) prophylaxis (Z78.9: Other specified health status) Critical Care Tidme 45 minutes Problem List/Past Medical History Ongoing Anxiety Asthma Chronic GERD Depression with anxiety Headache Hypertension Morbid obesity due to excess calories Morbid obesity with body mass index of 50 or higher Historical No qualifying data Procedure/Surgical History Endometrial ablation, None. Medications Inpatient acetaminophen 325 mg Tab, 650 mg= 2 tab(s), Oral, q6hr, PRN Al hydroxide/Mg hydroxide/simethicone 200 mg-200 mg-20 mg/5 mL oral suspension, 30 mL, Oral, q6hr, PRN amLODIPine 10 mg Tab, 10 mg= 1 tab(s), Oral, Daily atenolol 25 mg Tab, 25 mg= 1 tab(s), Oral, Daily baricitinib 2 mg oral tablet, 4 mg= 2 tab(s), Oral, Daily busPIRone 10 mg Tab, 15 mg= 1.5 tab(s), Oral, TID Cymbalta 60 mg Cap-DR, 60 mg= 1 cap(s), Oral, Daily dexamethasone 4 mg/mL Inj 1 mL, 6 mg= 1.5 mL, IV Push, Daily gabapentin 400 mg Cap, 400 mg= 1 cap(s), Oral, TID ibuprofen 800 mg Tab, 800 mg= 1 tab(s), Oral, BID Lovenox 40 mg/0.4 mL SC Darshana, 40 mg= 0.4 mL, SubCutaneous, Daily Milk of Magnesia 8% Susp-Oral, 30 mL, Oral, q6hr, PRN remdesivir additive + Sodium Chloride 0.9% intravenous solution 250 mL Zofran 4 mg/2 mL Injection, 4 mg= 2 mL, IV Push, q6hr, PRN Home albuterol 0.083% Inh Darshana 3 mL, 2.5 mg= 3 mL, Inhalation amLODIPine 10 mg Tab, Oral, Daily atenolol 25 mg Tab, Oral, Daily budesonide 90 mcg/inh inhalation powder, 2 puff(s), Inhalation, q4hr busPIRone, 15 mg, Oral, TID cyclobenzaprine, 10 mg, Oral, Daily, Still taking, not as prescribed: per patient takes as needed Hernán duloxetine 60 mg Cap-DR, 1 cap(s), Oral, Daily gabapentin 400 mg Cap, 400 mg= 1 cap(s), Oral, TID ibuprofen 800 mg Tab, Oral, BID predniSONE 20 mg Tab, 20 mg= 1 tab(s), Oral, As Directed, Not taking: per patient she still has to pick this medication up from the pharmacy Hernán Vitamin C, 1tablet, Oral, Daily, Self Directed Allergies lisinopril (Swelling of throat) Dust (Allergy test positive) Social History Alcohol Current, Wine, 1-2 times per year, 04/19/2019 Substance Abuse - Denies Substance Abuse, 04/19/2019 Tobacco Former smoker, quit more than 30 days ago, Quit smoking in 2013. Smoked 1 pack per day for 20 years Tobacco Use:. Never Smokeless Tobacco Use:., 04/22/2020 Former smoker, quit more than 30 days ago Tobacco Use:., 09/29/2019 Family History Acute myocardial infarction: Father and Brother. Anxiety: Negative: Sister. Drug dependency: Brother. [1] CTA Chest; Dino Arce M.D. 04/28/2020 11:53 EST Normal [facility] Comment on above: Result Comment: Elec tronically Signed By: David TORRES, Peggy Farley.marie\Date and Time Signed: 04/29/20 20:29 EST D-Dimeron 04-29-2020 Fibrin D-dimer FEU (PPP) [Mass/Vol] 840 ng/mL Abnormal 215-500 [facility] Comment on above: Result Comment: Resu lts Verified By Repeat Analysis Results Called To Jamal Edmond/ICU By DA And Read Back For Confirmation On 04/29/2020 07:28:59 EST. This D-Dimer assay may be used in conjunction with a non-high clinical pretest probability assessment to exclude deep-vein thrombosis(DVT). For exclusion of venous thrombosis or pulmonary embolism the analyte D-Dimer should not be used as an aid in patients with: Therapeutic dose anticoagulant therapy for >24 hours Fibrinolytic therapy within previous 7 days Trauma or surgery within previous 4 weeks Disseminated malignacies Aortic aneurysm Sepsis, severe infections, pneumonia, severe skin infections Liver cirrhosis Performed By: #### 1 [id number] #### [facility] [address] [place] [id number] EMS Documentationon 04-29-19 EMS Documentation [id number]#1 .00CD:127 Normal [facility] Ferritinon 04-29-2020 Ferritin [Mass/Vol] 125 ng/mL Normal 11-307 [facility] Comment on above: Result Comment: NORM ALS MEN <30 YRS 16-132 ng/mL MEN >30 YRS 8-338 ng/mL WOMEN (PREMEN) 6-104 ng/mL WOMEN (POSTMEN) 12-210 ng/mL Performed By: #### 1 [id number] #### [facility] [address] [place] [address] Interdisciplinary Note - Jose e Manageron 04-29-2020 Interdisciplinary Note - Cell Stripper Pt is proning and asleep in bed at this time, remains on high flow oxygen in covid isolation. Per America STAHL , pt has her cell phone at bedside and has been updating family. CRM following for needs. Normal [facility] Comment on above: Result Comment: Elec tronically Signed By: Lance STAHL, Isabela\.marie\Date and Time Signed: 04/29/20 14:10 EST LDHon 04-29-2020 LDH [Catalytic activity/Vol] 296 Int._Unit/L High 93-218 [facility] Comment on above: Performed By: #### 1 [id number] #### [facility] [address] [place] [address] Monitor Recordon 04-29-2020 Monitor Record [id number]# 1.00CD:127 Normal [facility] Monitor Record [id number]# 1.00CD:127 [facility] Monitor Record [id number]# 1.00CD:127 Normal [facility] Monitor Record [id number]# 1.00CD:127 Normal [facility] Progress Note - Pharmacyon 0 04-29-2020 Progress Note - Pharmacy Pharmacy Medication Review - ICU Patients I have personally reviewed this patient's current inpatient medication orders and will communicate any recommendations to the attending physician. COVID Treatment/IV Antibiotic(s): Yes remdesivir + Sodium Chloride 0.9% 250 mL 100 mg 20 mL, IV Piggyback, Noon Day of therapy: 2 baricitinib 2 mg Tab [F] 4 mg 2 tab(s), Oral, Daily Day of therapy: 2 dexamethasone 4 mg/mL Inj 1 mL [F] 6 mg 1.5 mL, IV Push, Daily Day of therapy: 2 Mechanically Ventilated: No Sedation: No Medications Switched to OG: No Medications (18) Active Scheduled: (13) amLODIPine 10 mg Tab [F] 10 mg 1 tab(s), Oral, Daily atenolol 25 mg Tab [F] 25 mg 1 tab(s), Oral, Daily baricitinib 2 mg Tab [F] 4 mg 2 tab(s), Oral, Daily budesonide 0.25 mg/2 mL Inh Susp [F] 0.25 mg 2 mL, NEB, BID busPIRone 10 mg Tab [F] 15 mg 1.5 tab(s), Oral, TID dexamethasone 4 mg/mL Inj 1 mL [F] 6 mg 1.5 mL, IV Push, Daily DULoxetine 60 mg Cap-DR [F] 60 mg 1 cap(s), Oral, Daily enoxaparin 40 mg/0.4 mL SC Darshana [F] 40 mg 0.4 mL, SubCutaneous, Daily gabapentin 400 mg Cap [F] 400 mg 1 cap(s), Oral, TID ibuprofen 800 mg Tab [F] 800 mg 1 tab(s), Oral, BID insulin lispro (Humalog) 100 units/mL SubQ Inj 3 mL [F] 0-10 Units, SubCutaneous, QIDACHS magnesium sulfate + Dextrose 5% Premix Diluent 100 mL 1 gram 100 mL, IV Piggyback, Once remdesivir + Sodium Chloride 0.9% 250 mL 100 mg 20 mL, IV Piggyback, Noon Continuous: (0) PRN: (5) acetaminophen 325 mg Tab UD [F] 650 mg 2 tab(s), Oral, q6hr Al hydroxide/Mg hydroxide/simethicone 200 mg-200 mg-20 mg/5 mL Oral Susp 30 mL [F] 30 mL, Oral, q6hr dextrose 50% IV Darshana 50 mL Abboject [F] 40 mL, IV Push, Once magnesium hydroxide 8% Oral Susp 30 mL [F] 30 mL, Oral, q6hr ondansetron 2 mg/mL Inj [F] 4 mg 2 mL, IV Push, q6hr Renal dose adjustment: No CrCl: >120 mL/min (scr-0.6) Adjusted Medications:All medications are dosed appropriately for the current renal function. Candidate for IV to PO Conversion: No VTE Prophylaxis: Below the Knee Intermittent Pneumatic Compression Device Ordered by: Isa TUCKER - 04/28/2020 1251 enoxaparin 40 mg/0.4 mL SC Darshana [F] Ordered by: Isa TUCKER - 04/28/2020 1252 Labs: Last Month Basic Metabolic Panel: Hematology: : () Hgb: 11.8 (04/28/20) : () : () : () : () : () : () : () : () Creatinine: 0.6 (04/29/20) : () Additional - Last Month a/A Ratio Art: 26.60 (04/28/20) A/G Ratio: 0.7 (04/29/20) AaDO2 Art: 135.1 (04/28/20) AGAP: 12 (04/29/20) Albumin Lvl: 3.3 (04/29/20) Alk Phos: 109 (04/29/20) Allens Test: Positive (04/28/20) ALT: 19 (04/29/20) AST: 20 (04/29/20) Base Excess Arterial: 1.8 (04/28/20) Basophil Absolute: 0.0 (04/28/20) Basophil Auto: 0.6 (04/28/20) Bili Direct: <0.1 (04/28/20) Bili Indirect: Unable to Calculate (04/28/20) Bili Total: 0.6 (04/29/20) BUN: 12 (04/29/20) BUN/Creat Ratio: 20 (04/29/20) Calcium Lvl: 8.5 (04/29/20) Called By:: keren (04/28/20) Called To:: yes (04/28/20) cCa2+ Art: 4.53 (04/28/20) cCl- Art: 103.0 (04/28/20) cGlu Art: 98.0 (04/28/20) Chloride: 101 (04/29/20) cK+ Art: 3.5 (04/28/20) cLac Art: 1 (04/28/20) lath hand+ Art: 140.0 (04/28/20) CO2: 25 (04/29/20) CRP: 21.1 (04/29/20) D-Dimer: 840 (04/29/20) Device: CANNULA (04/28/20) Drawn by: nb (04/28/20) Dt/Tm Notified: 13:09:00 (04/28/20) eGFR: >60 (04/29/20) eGFR AA: >60 (04/29/20) Employed in Healthcare: NO (04/23/20) Eos Absolute: 0.0 (04/28/20) Eos Auto: 0.0 (04/28/20) FCOHb Art: 1.1 (04/28/20) Ferritin Lvl: 103 (04/28/20) FIO2 B.0 (04/28/20) First Test: Unknown (04/23/20) Flow: 3.00 (04/28/20) FMetHb Art: 0.8 (04/28/20) FO2Hb Art: 85.8 (04/28/20) Globulin: 4.6 (04/29/20) Glucose Lvl: 199 (04/29/20) HCO3 Arterial: 25.8 (04/28/20) Hct: 37.0 (04/28/20) Hospitalized?: NO (04/23/20) ICU: NO (04/23/20) INR: 1.1 (04/28/20) LDH: 296 (04/29/20) Lymph Absolute: 0.9 (04/28/20) Lymph Auto: 13.7 (04/28/20) MCH: 24.6 (04/28/20) MCHC: 31.9 (04/28/20) MCV: 77.1 (04/28/20) [place] Absolute: 0.3 (04/28/20) [place] Auto: 4.9 (04/28/20) MPV: 7.5 (04/28/20) Neutro Absolute: 5.1 (04/28/20) Neutro Auto: 80.8 (04/28/20) O2 Sat Art: 87.5 (04/28/20) P CO2 Arterial: 33.8 (04/28/20) P O2 Arterial: 49.0 (04/28/20) pH Arterial: 7.478 (04/28/20) Platelet: 249.0 (04/28/20) Potassium Lvl: 3.6 (04/29/20) ?: NO (04/23/20) Procalcitonin: .07 (04/28/20) PT: 13.3 (04/28/20) PTT: 28.1 (04/28/20) Rapid COV Int NEG Ctl: Pass (04/23/20) Rapid COV Int POS Ctl: Pass (04/23/20) Rapid COVID Ag: Detected (04/23/20) RBC: 4.8 (04/28/20) RDW: 17.2 (04/28/20) Resides in a Congregate Care Setting: NO (04/23/20) Sample Site: (04/28/20) Sample Type: Arterial (04/28/20) Sodium Lvl: 134 (04/29/20) Symptomatic as defined by CDC: YES (04/23/20) Total Hgb Art: 11.7 (04/28/20) Total Protein: 7.9 (04/29/20) Troponin: <2.30 (04/28/20) UA Blood: Trace (04/28/20) UA Bili: Negative (04/28/20) UA Clarity: Clear (04/28/20) UA Color: Yellow (04/28/20) UA Glucose: Negative (04/28/20) UA Ketones: Negative (04/28/20) UA Leuk Est: Negative (04/28/20) UA Nitrite: Negative (04/28/20) UA pH: 6.5 (04/28/20) UA Protein: 1+ (04/28/20) UA RBC: 0-3 (04/28/20) UA Spec Desc: Clean Catch (04/28/20) UA Spec Grav: 1.015 (04/28/20) UA Squam Epithelial: 0-2 (04/28/20) UA Urobilinogen: 0.2 (04/28/20) UA WBC: 0-5 (04/28/20) WBC: 6.4 (04/28/20) GI Ulcer Prophylaxis: Not indicated Normal [facility] Progress Note-Physicianon Progress Note-Physician Assessment/Plan 1. Acute respiratory failure with hypoxia (J96.01: Acute respiratory failure with hypoxia) - PaO2 49 on ABG on RA - secondary to bilateral covid 19 pneumonia - remdesivir, decadron, baricitinib day 1 - monitor inflammatory markers, LFT - high flow oxygen, titrate for O2 sat greater than 92% - currently on high flow 50 liters and 40%, wean as able - IS, out of bed to chair TID with meals - d/w pulmonary Ordered: 2. Allergic asthma (J45.909: Unspecified asthma, uncomplicated) - stable, not in acute exacerbation 3. Pneumonia due to COVID-19 virus (U07.1: COVID-19) - as above 4. Hyponatremia (E87.1: Hypo-osmolality and hyponatremia) - stable, stop IVF, encourage PO intake 5. Hypertension (I10: Essential (primary) hypertension) - norvasc, atenolol, lisinopril/hctz 6. Chronic GERD (K21.9: Gastro-esophageal reflux disease without esophagitis) - protonix 7. Depression with anxiety (F41.8: Other specified anxiety disorders) - lindsey lu 8. Morbid obesity due to excess calories (E66.01: Morbid (severe) obesity due to excess calories) - BMI 53 - lifestyle modification, outpatient PCP follow up 9. No contraindication to deep vein thrombosis (DVT) prophylaxis (Z78.9: Other specified health status) - SCDs, lovenox Orders: acetaminophen, 650 mg = 2 tab(s), Tab, Oral, q6hr PRN Pain, Routine, Start date 04/28/20 12:51:00 EST Al hydroxide/Mg hydroxide/simethicone , 30 mL, Susp-Oral, Oral, q6hr PRN Indigestion, STAT, Start date 04/28/20 12:51:00 EST amlodipine, 10 mg = 1 tab(s), Tab, Oral, Daily, Routine, Start date 04/29/20 9:00:00 EST atenolol, 25 mg = 1 tab(s), Tab, Oral, Daily, Routine, Start date 04/29/20 9:00:00 EST baricitinib, 4 mg = 2 tab(s), Tab, Oral, Daily, Routine, Start date 04/28/20 12:54:00 EST busPIRone, 15 mg = 1.5 tab(s), Tab, Oral, TID, Routine, Start date 04/29/20 8:00:00 EST dexamethasone, 6 mg = 1.5 mL, Injection, IV Push, Daily, Routine, Start date 04/28/20 12:54:00 EST duloxetine, 60 mg = 1 cap(s), Cap-DR, Oral, Daily, Routine, Start date 04/29/20 9:00:00 EST enoxaparin, 40 mg = 0.4 mL, Injection, SubCutaneous, Daily, Routine, Start date 04/29/20 9:00:00 EST gabapentin, 400 mg = 1 cap(s), Cap, Oral, TID, Routine, Start date 04/29/20 8:00:00 EST ibuprofen, 800 mg = 1 tab(s), Tab, Oral, Once, Stop date 04/28/20 13:48:00 EST, STAT, Start date 04/28/20 13:48:00 EST ibuprofen, Tab, Misc, Once, Stop date 04/28/20 13:51:27 EST, Physician Stop, 04/28/20 13:51:27 EST ibuprofen, 800 mg = 1 tab(s), Tab, Oral, BID, Routine, Start date 04/29/20 9:00:00 EST magnesium hydroxide, 30 mL, Susp-Oral, Oral, q6hr PRN Constipation, STAT, Start date 04/28/20 12:51:00 EST magnesium sulfate, Soln-IV, Misc, Once, Stop date 04/29/20 9:02:07 EST, Physician Stop, 04/29/20 9:02:07 EST ondansetron, 4 mg = 2 mL, Injection, IV Push, q6hr PRN Nausea, Routine, Start date 04/28/20 12:51:00 EST remdesivir + Sodium Chloride 0.9% intravenous solution 250 mL, 200 mg = 40 mL, IV Piggyback, Once, Stop date 04/28/20 13:00:00 EST, Routine, Start date 04/28/20 13:00:00 EST, 250 mL/hr, Infuse over 1 hour(s) remdesivir + Sodium Chloride 0.9% intravenous solution 250 mL, 100 mg = 20 mL, IV Piggyback, Noon for 4 dose(s), Stop date 05/03/20 11:59:00 EST, Routine, Start date 04/29/20 12:00:00 EST, 250 mL/hr, Infuse over 1 hour(s) Ambulate with Assistance Below the Knee Intermittent Pneumatic Compression Device C-Reactive Protein C-Reactive Protein C-Reactive Protein Cardiac Monitoring Comprehensive Metabolic Panel Consult to Pulmonology D-Dimer D-Dimer D-Dimer eGFR Evaluate Need For Continued Telemetry Extra Lav Tube Ferritin Ferritin Ferritin Hepatic Function Panel Hepatic Function Panel Intake and Output Lactate Dehydrogenase Lactate Dehydrogenase Lactate Dehydrogenase Notify Provider Vital Signs Notify Provider Vital Signs Oxygen Protocol Place in Status Procalcitonin Pulse Oximetry Regular Diet Vital Signs Weight Subjective Pt feels a little better, still some sob at rest and with exertion. Little cough. No CP. No nausea or vomiting. Review of Systems Constitutional: No fevers, chills Eye: Negative. Ear/Nose/Mouth/Throat : Negative. Respiratory: sob, cough Cardiovascular: Negative. Gastrointestinal: Negative. Genitourinary: Negative. Immunologic: Negative. Musculoskeletal: Negative. Integumentary: Negative. Neurologic: Negative. Psychiatric: Negative. All other systems are negative Objective Vitals & Measurements T: 37.3 ?C (Oral) TMIN: 36.9 ?C (Oral) TMAX: 38.5 ?C (Oral) HR: 86(Monitored) RR: 22 BP: 137/88 SpO2: 98% WT: 129.2 kg Intake & Output This visit (24 hour periods starting at 07:00 EST) 04/29/20 * 04/28/20 04/27/20 Total Summary Intake mL 103.5 2,451.5 -- Output mL -- 3 -- Fluid Balance 103.5 2,448.5 -- Intake (7) Dextrose 5% in Water, magnesium sulfate mL 100 -- -- Oral Intake mL -- 380 -- Sodium Chloride 0.9% mL -- 1,000 -- Sodium Chloride 0.9% intravenous solution 1,000 mL mL -- 820 -- Sodium Chloride 0.9%, remdesivir mL -- 250 -- dexamethasone mL 1.5 1.5 -- ondansetron mL 2 -- -- Total 103.5 2,451.5 -- Output (1) Urine Voided mL -- 3 -- Total -- 3 -- Counts (1) Stool Count -- 2 -- * This column has not completed the indicated time period. Physical Exam General: alert, no acute distress ENMT: oral mucosa moist, no pharyngeal erythema or exudate Cardiovascular: regular rate and rhythm, normal peripheral perfusion Respiratory: Lungs diffuse rhonci bilaterally, respirations non labored Abdomen: soft, NTND, +BS Skin: warm, dry, intact Extremities: no deformity, no trauma Neurological: LOC appropriate for age, CN II-XII intact, motor strength equal & normal bilaterally, sensation equal & normal bilaterally, speech normal Lab Results WBC: 6.4 E9/L (04/28/20 10:36:00) RBC: 4.8 E12/L (04/28/20 10:36:00) Hgb: 11.8 gm/dL Low (04/28/20 10:36:00) Hct: 37 % (04/28/20 10:36:00) MCV: 77.1 fL Low (04/28/20 10:36:00) MCH: 24.6 pg Low (04/28/20 10:36:00) MCHC: 31.9 gm/dL (04/28/20 10:36:00) RDW: 17.2 % High (04/28/20 10:36:00) Platelet: 249 E9/L (04/28/20 10:36:00) MPV: 7.5 fL (04/28/20 10:36:00) Neutro Auto: 80.8 % High (04/28/20 10:36:00) Lymph Auto: 13.7 % Low (04/28/20 10:36:00) [place] Auto: 4.9 % (04/28/20 10:36:00) Eos Auto: 0 % (04/28/20 10:36:00) Basophil Auto: 0.6 % (04/28/20 10:36:00) Neutro Absolute: 5.1 E9/L (04/28/20 10:36:00) Lymph Absolute: 0.9 E9/L Low (04/28/20 10:36:00) [place] Absolute: 0.3 E9/L (04/28/20 10:36:00) Eos Absolute: 0 E9/L (04/28/20 10:36:00) Basophil Absolute: 0 E9/L (04/28/20 10:36:00) PT: 13.3 second(s) High (04/28/20 10:36:00) INR: 1.1 (04/28/20 10:36:00) PTT: 28.1 second(s) (04/28/20 10:36:00) D-Dimer: 840 ng/mL Critical (04/29/20 06:31:00) Glucose Lvl: 199 mg/dL (04/29/20 06:31:00) BUN: 12 mg/dL (04/29/20::) Creatinine: 0.6 mg/dL (04/29/20::) eGFR: >60 (04/29/20::00) eGFR AA: >60 (04/29/20::) BUN/Creat Ratio: 20 (04/29/20::) Sodium Lvl: 134 mmol/L Low (04/29/20::) Potassium Lvl: 3.6 mmol/L (04/29/20::) Chloride: 101 mmol/L (04/29/20::) CO2: 25 mmol/L (04/29/20::00) AGAP: 12 mEq/L (04/29/20:31:00) Calcium Lvl: 8.5 mg/dL Low (04/29/20::00) Alk Phos: 109 Int._Unit/L High (04/29/20 06:31:00) ALT: 19 Int._Unit/L (04/29/20:31:00) AST: 20 Int._Unit/L (04/29/20::) Total Protein: 7.9 gm/dL High (04/29/20:31:00) Albumin Lvl: 3.3 gm/dL (04/29/20:31:00) Globulin: 4.6 gm/dL High (04/29/20:31:00) A/G Ratio: 0.7 Low (04/29/20:31:00) Bili Total: 0.6 mg/dL (04/29/20 06:31:00) Bili Direct: <0.1 (04/28/20 10:36:00) Bili Indirect: Unable to Calculate Abnormal (04/28/20 10:36:00) CRP: 21.1 mg/dL High (04/29/20 06:31:00) LDH: 296 Int._Unit/L High (04/29/20 06:31:00) Troponin: <2.30 Low (04/28/20 10:36:00) Ferritin Lvl: 103 ng/mL (04/28/20 10:36:00) Procalcitonin: 0.07 ng/mL (04/28/20 10:36:00) UA Spec Desc: Clean Catch (04/28/20 16:02:00) UA Color: Yellow2 (04/28/20 16:02:00) UA Clarity: Clear2 (04/28/20 16:02:00) UA Spec Grav: 1.015 (04/28/20 16:02:00) UA pH: 6.5 (04/28/20 16:02:00) UA Protein: 1+ Abnormal (04/28/20 16:02:00) UA Glucose: NEGATIVE1 (04/28/20 16:02:00) UA Ketones: NEGATIVE1 (04/28/20 16:02:00) UA Bili: NEGATIVE1 (04/28/20 16:02:00) UA Blood: Trace2 Abnormal (04/28/20 16:02:00) UA Nitrite: NEGATIVE1 (04/28/20 16:02:00) UA Urobilinogen: 0.2 (04/28/20 16:02:00) UA Leuk Est: NEGATIVE1 (04/28/20 16:02:00) UA RBC: 0-3 (04/28/20 16:02:00) UA Squam Epithelial: 0-2 (04/28/20 16:02:00) UA WBC: 0-5 (04/28/20 16:02:00) pH Arterial: 7.478 High (04/28/20 13:05:00) P CO2 Arterial: 33.8 mmHg Low (04/28/20 13:05:00) P O2 Arterial: 49 mmHg Low (04/28/20 13:05:00) Base Excess Arterial: 1.8 mmol/L Low (04/28/20 13:05:00) HCO3 Arterial: 25.8 mmol/L (04/28/20 13:05:00) Total Hgb Art: 11.7 gm/dL Low (04/28/20 13:05:00) FO2Hb Art: 85.8 % Low (04/28/20 13:05:00) FCOHb Art: 1.1 % Low (04/28/20 13:05:00) FMetHb Art: 0.8 % (04/28/20 13:05:00) O2 Sat Art: 87.5 % Low (04/28/20 13:05:00) lath hand+ Art: 140 mmol/L (04/28/20 13:05:00) cK+ Art: 3.5 mmol/L (04/28/20 13:05:00) cCa2+ Art: 4.53 mg/dL (04/28/20 13:05:00) cCl- Art: 103 mmol/L (04/28/20 13:05:00) cGlu Art: 98 mg/dL (04/28/20 13:05:00) cLac Art: 1 mmol/L Low (04/28/20 13:05:00) AaDO2 Art: 135.1 High (04/28/20 13:05:00) a/A Ratio Art: 26.6 (04/28/20 13:05:00) Sample Type: Arterial (04/28/20:05:00) Sample Site: (04/28/20 13:05:00) Device: CANNULA (04/28/20 13:05:00) FIO2 B.0 (04/28/20 13:05:00) Flow: 3.00 (04/28/20 13:05:00) Allens Test: Positive (04/28/20 13:05:00) Called To: yes (04/28/20 13:05:00) Called By: keren (04/28/20 13:05:00) Dt/Tm Notified: 13:09:00 (04/28/20 13:05:00) Drawn by: keren (04/28/20 13:05:00) Problem List/Past Medical History Ongoing Anxiety Asthma Chronic GERD Depression with anxiety Headache Hypertension Morbid obesity due to excess calories Morbid obesity with body mass index of 50 or higher Historical No qualifying data Medications Inpatient acetaminophen 325 mg Tab, 650 mg= 2 tab(s), Oral, q6hr, PRN Al hydroxide/Mg hydroxide/simethicone 200 mg-200 mg-20 mg/5 mL oral suspension, 30 mL, Oral, q6hr, PRN amLODIPine 10 mg Tab, 10 mg= 1 tab(s), Oral, Daily atenolol 25 mg Tab, 25 mg= 1 tab(s), Oral, Daily baricitinib 2 mg oral tablet, 4 mg= 2 tab(s), Oral, Daily budesonide 0.25 mg/2 mL Inh Susp, 0.25 mg= 2 mL, NEB, BID busPIRone 10 mg Tab, 15 mg= 1.5 tab(s), Oral, TID Cymbalta 60 mg Cap-DR, 60 mg= 1 cap(s), Oral, Daily dexamethasone 4 mg/mL Inj 1 mL, 6 mg= 1.5 mL, IV Push, Daily Dextrose 50% Soln-IV, 40 mL, IV Push, Once, PRN gabapentin 400 mg Cap, 400 mg= 1 cap(s), Oral, TID HumaLOG Sliding Scale, 0-10 Units, SubCutaneous, QIDACHS ibuprofen 800 mg Tab, 800 mg= 1 tab(s), Oral, BID Lovenox 40 mg/0.4 mL SC Darshana, 40 mg= 0.4 mL, SubCutaneous, Daily Milk of Magnesia 8% Susp-Oral, 30 mL, Oral, q6hr, PRN remdesivir additive + Sodium Chloride 0.9% intravenous solution 250 mL Zofran 4 mg/2 mL Injection, 4 mg= 2 mL, IV Push, q6hr, PRN Home albuterol 0.083% Inh Darshana 3 mL, 2.5 mg= 3 mL, Inhalation amLODIPine 10 mg Tab, Oral, Daily atenolol 25 mg Tab, Oral, Daily budesonide 90 mcg/inh inhalation powder, 2 puff(s), Inhalation, q4hr busPIRone, 15 mg, Oral, TID cyclobenzaprine, 10 mg, Oral, Daily, Still taking, not as prescribed: per patient takes as needed JRuby duloxetine 60 mg Cap-DR, 1 cap(s), Oral, Daily gabapentin 400 mg Cap, 400 mg= 1 cap(s), Oral, TID ibuprofen 800 mg Tab, Oral, BID predniSONE 20 mg Tab, 20 mg= 1 tab(s), Oral, As Directed, Not taking: per patient she still has to pick this medication up from the pharmacy Hernán Vitamin C, 1tablet, Oral, Daily, Self Directed Normal [facility] Comment on above: Result Comment: Elec tronically Signed By: CAITLIN WALTON, Isa\.br\Date and Time Signed: 04/29/20 09:44 EST eGFRon 04-29-2020 GFR/1.73 sq M predicted among blacks MDRD (S/P/Bld) [Vol rate/Area] mL/min/{1.73_m2} Normal >=59 [facility] Comment on above: Order Comment: Order added by Discern Expert. Result Comment: eGFR is race adjusted. AA=. Performed By: #### 1 [id number] #### [facility] [address] [place] [address] GFR/1.73 sq M predicted among non-blacks MDRD (S/P/Bld) [Vol rate/Area] mL/min/{1.73_m2} Normal >=59 [facility] Comment on above: Order Comment: Order added by Discern Expert. 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 Kidney failure is indicated at less than 15 mL/min/1.73m2. Performed By: #### 1 [id number] #### [facility] [address] [place] [address] Auto Diffon 04-28-2020 Basophils/100 WBC (Bld) 0.6 % Normal 0.0-2.0 F [facility] Comment on above: Order Comment: Order Added by Discern Expert. Performed By: #### 2 [id number], [id number], [id number], [id number], [id number], [id number], [id number], [id number], [id number] ####[facility] [id number] [place] [address] Basophils/Leukocytes Auto (Bld) [Pure # fraction] 0.0 E9/L Normal 0.0-0.2 [facility] Comment on above: Order Comment: Order Added by Discern Expert. Performed By: #### 2 [id number], [id number], [id number], [id number], [id number], [id number], 2365239, 3418557, 5550158, [id number], [id number] ####[facility] [id number] [place] [address] Eosinophils/100 WBC (Bld) 0.0 % Normal 0.0-8.0 [facility] Comment on above: Order Comment: Order Added by Discern Expert. Performed By: #### 2 [id number], [id number], [id number], 8344140, [id number], 7241815, [id number], 1253574, [id number], [id number] ####[id number] [place] [address] Eosinophils/Leukocytes Auto (Bld) [Pure # fraction] 0.0 E9/L Normal 0.0-0.5 [facility] Comment on above: Order Comment: Order Added by Discern Expert. Performed By: #### 2 [id number], [id number], [id number], 8563776, [id number], 3761263, [id number], 8382402, 0139969, 2308256, [id number], [id number] ####[address] [place] [address] Lymphocytes/100 WBC (Bld) 13.7 % Low 14.0-50.0 [facility] Comment on above: Order Comment: Order Added by Discern Expert. Performed By: #### 2 [id number], [id number], [id number], [id number], [id number], 7884259, [id number], 6611490, 7647713, 1634978, 33505340, 7242491 ####[address] [place] [address] Lymphocytes/Leukocytes Auto (Bld) [Pure # fraction] 0.9 E9/L Low 1.0-4.0 [facility] Comment on above: Order Comment: Order Added by Discern Expert. Performed By: #### 2 166136, 2340162, [id number], 1974757, 60434939, 5384484, 33768703, 2364866, 2392257, 5068495, 68755706, 0142848 ####[facility] [address] [place] [address] Monocytes/100 WBC (Bld) 4.9 % Normal 4.0-14.0 [facility] Comment on above: Order Comment: Order Added by Discern Expert. Performed By: #### 2 596477, 6032902, [id number], 7468945, 44272183, 9320048, 15738178, 4409676, 9020945, 8540079, 94044998, 1439246 ####[address] [place] [address] Monocytes/Leukocytes Auto (Bld) [Pure # fraction] 0.3 E9/L Normal 0.2-1.0 [facility] Comment on above: Order Comment: Order Added by Discern Expert. Performed By: #### 2 158766, 6293447, [id number], 1032436, 05974504, 7988592, 49246455, 6718665, 0226398, 5537381, 60395384, 7902145 ####[address] [place] [address] Neutrophils/100 WBC (Bld) 80.8 % High 36.0-75.0 [facility] Comment on above: Order Comment: Order Added by Discern Expert. Performed By: #### 2 230589, 2718028, [id number], 9463464, 19363755, 3436834, 51104077, 2197955, 5391364, 4820036, 08865153, 5072406 ####[address] [place] [address] Neutrophils/Leukocytes Auto (Bld) [Pure # fraction] 5.1 E9/L Normal 2.0-7.5 [facility] Comment on above: Order Comment: Order Added by Discern Expert. Performed By: #### 2 555277, 2181158, [id number], 3399943, 44315583, 8849858, 43269960, 3644640, 6618591, 2260693, 64537910, 4239518 ####[facility] [address] [place] [address] BMPon 04-28-2020 Creatinine [Mass/Vol] 0.7 mg/dL Normal 0.5-1.3 [facility] Comment on above: Performed By: #### 2 001692, 4020390, [id number], 9307322, 32816061, 6432978, 97611584, 9776204, 3848110, 4953649, 31698409, 3980865 ####[facility] [address] [place] [address] Urea nitrogen [Mass/Vol] 15 mg/dL Normal 5-21 [facility] Comment on above: Performed By: #### 2 591001, 0565337, 5673887993, 8584553, 52995887, 7426027, 88485953, 7132605, 0845229, 3551020, 40939344, 7449486 ####[facility] [address] [place] [address] Urea nitrogen/Creatinine [Mass ratio] 21 No Units High 10-20 [facility] Comment on above: Performed By: #### 2 832249, 0619956, 5792535132, 2486798, 11901393, 4103144, 78246305, 1249794, 3683635, 6040707, 70182870, 0163380 ####[facility] [address] [place] [address] Anion gap [Moles/Vol] 18 mmol/L High 6-16 [facility] Comment on above: Performed By: #### 2 659178, 2750009, 0767072920, 9042871, 70846706, 0751073, 64880063, 6369177, 9657825, 3114173, 49380363, 3830211 ####[facility] [address] [place] [address] Calcium [Mass/Vol] 8.9 mg/dL Normal 8.9-11.1 [facility] Comment on above: Performed By: #### 2 802686, 0624046, [id number], 9232456, 08354056, 4029703, 78289439, 1372830, 0158100, 3749437, 70502294, 9094342 ####[facility] [address] [place] [address] Chloride [Moles/Vol] 96 mmol/L Low 101-111 [facility] Comment on above: Performed By: #### 2 512872, 7273206, 2600523735, 7970012, 89092937, 0106130, 84562274, 7733240, 8246344, 3087054, 76306489, 7693979 ####[facility] [address] [place] [address] CO2 [Moles/Vol] 24 mmol/L Normal 21-31 [facility] Comment on above: Performed By: #### 2 388373, 1327108, 9228652476, 3620502, 29636348, 5883344, 47343508, 8424781, 0719953, 5308739, 73221414, 4018120 ####[facility] [address] [place] [address] Glucose [Mass/Vol] 177 mg/dL Normal 55-199 [facility] Comment on above: Result Comment: If t his glucose result represents a fasting glucose, interpretation should refer to the following reference range: 55-99 mg/dL Performed By: #### 2 832896, 3950883, 6529056579, 9573555, 12466066, 6038657, 24154771, 0174247, 3181874, 4854416, 23091839, 8501372 ####[facility] [address] [place] [address] Potassium [Moles/Vol] 3.5 mmol/L Normal 3.5-5.3 [facility] Comment on above: Performed By: #### 2 663163, 5534603, 4558910994, 7069788, 50386263, 7917380, 57759152, 7908787, 5362041, 9814222, 63699561, 7649572 ####[facility] [address] [place] [address] Sodium [Moles/Vol] 134 mmol/L Low 135-145 [facility] Comment on above: Performed By: #### 2 369288, 1600251, 5268159088, 2173451, 94356659, 9788048, 92449111, 7123030, 3543310, 2598366, 89734881, 1998976 ####[address] [address] Bld Gas Ar[place] 04-28-2020 a/A Ratio Art 26.60 Normal >=0.80 [facility] Comment on above: Performed By: #### 1 0833158 ####[address] [address] AaDO2 Art 135.1 High 5.0-15.0 [facility] Comment on above: Performed By: #### 1 7277400 ####[address] [address] Allens Test Positive [facility] Comment on above: Result Comment: [facility] Department of Pulmonary Medicine [address] [place] [address] Performed By: #### 1 [id number] ####[address] [address] Base excess Calc (Bld) [Moles/Vol] 1.8 mmol/L Low >=2.8 [facility] Comment on above: Performed By: #### 1 2740133 ####[address] [address] Called By: keren [facility] Comment on above: Performed By: #### 1 3060150 ####[facility] [address] [place] [address] Called To: yes [facility] Comment on above: Performed By: #### 1 9836851 ####[facility] [address] [place] [address] cCa2+ Art 4.53 mg/dL Normal 4.40-5.30 [facility] Comment on above: Performed By: #### 1 3008509 ####[facility] [address] [place] [address] cCl- Art 103.0 mmol/L Normal 101.0-111.0 [facility] Comment on above: Performed By: #### 1 6211757 ####[facility] [address] [place] [address] cGlu Art 98.0 mg/dL Normal 55.0-199.0 [facility] Comment on above: Performed By: #### 1 7821359 ####[facility] [address] [place] [address] cK+ Art 3.5 mmol/L Normal 3.5-5.3 [facility] Comment on above: Performed By: #### 1 4705784 ####[facility] [address] [place] [address] cLac Art 1 mmol/L Low 5-14 [facility] Comment on above: Performed By: #### 1 6732551 ####[facility] [address] [place] [address] lath hand+ Art 140.0 mmol/L Normal 135.0-145.0 [facility] Comment on above: Performed By: #### 1 5188626 ####[facility] [address] [place] [address] CO2 (Bld) [Partial pressure] 33.8 mm[Hg] Low 35.0-45.0 [facility] Comment on above: Result Comment: 84 Performed By: #### 1 8412860 ####[facility] [address] [place] [facility] [place] [address] Device CANNULA [facility] Comment on above: Performed By: #### 1 0744972 ####[facility] [address] [place] [facility] [place] [address] Drawn by nb [facility] Comment on above: Performed By: #### 1 2255943 ####[place] [address] [place] [address] Dt/Tm Notified 13:09:00 F [facility] Comment on above: Performed By: #### 1 6837491 ####[address] [address] FCOHb Art 1.1 % Low 1.5-4.9 [facility] Comment on above: Result Comment: 84 Reference range Nonsmoker <1.5% Smoker <5.0% Heavy Smoker <9.0% Performed By: #### 1 9621312 ####[place] [address] [place] [facility] [place] [address] FIO2 BG 32.0 [facility] Comment on above: Performed By: #### 1 7376311 ####[place] [address] [place] [facility] [place] [address] Flow 3.00 [facility] Comment on above: Performed By: #### 1 4740640 ####[place] [address] [place] [facility] [place] [address] FMetHb Art 0.8 % Normal 0.0-1.9 [facility] Comment on above: Performed By: #### 1 2362138 ####[facility] [address] [place] [facility] [place] [address] FO2Hb Art 85.8 % Low 92.0-100.0 [facility] Comment on above: Result Comment: 84 Performed By: #### 1 0971492 ####[place] [address] [place] [address] HCO3 (Bld) [Moles/Vol] 25.8 mmol/L Normal 22.0-26.0 [facility] Comment on above: Performed By: #### 1 3874622 ####[place] [address] Hemoglobin (Bld) [Mass/Vol] 11.7 g/dL Low 12.0-16.0 [facility] Comment on above: Result Comment: 84 Performed By: #### 1 3702686 ####[place] [address] Oxygen saturation in Blood 87.5 % Low 95.0-100.0 [facility] Comment on above: Result Comment: 84 Performed By: #### 1 9555309 ####[place] [address] P O2 Arterial 49.0 mmHg Low 80.0-100.0 [facility] Comment on above: Result Comment: 85 Performed By: #### 1 8349876 ####[place] [address] pH (Bld) 7.478 [pH] High 7.350-7.450 [facility] Comment on above: Result Comment: 83 Performed By: #### 1 2168657 ####[place] [address] Sample Site RR [facility] Comment on above: Performed By: #### 1 1349249 ####[place] [address] Sample Type Arterial [facility] Comment on above: Performed By: #### 1 3766735 ####[address] [address] CBC w/ Auto Diffon 1 Erythrocyte distribution width (RBC) [Ratio] 17.2 % High 10.9-14.2 [facility] Comment on above: Performed By: #### 2 462720, 7729336, 8346015004, 7362595, 40382676, 0375843, 38316176, 0975794, 4834737, 6599177, 28695164, 9327683 ####[facility] [address] [place] [address] Hematocrit (Bld) [Volume fraction] 37.0 % Normal 34.0-46.0 [facility] Comment on above: Performed By: #### 2 832797, 3399748, 1852624008, 7878766, 47481723, 8894578, 16742463, 0867048, 2803016, 0783967, 80740630, 4368055 ####[facility] [address] [place] [address] Hemoglobin (Bld) [Mass/Vol] 11.8 g/dL Low 12.0-16.0 [facility] Comment on above: Performed By: #### 2 030263, 2993674, 8841727512, 8624195, 51296219, 4104249, 99914471, 1945221, 9711859, 8043849, 10511056, 9779776 ####[facility] [address] [place] [address] MCH (RBC) [Entitic mass] 24.6 pg Low 27.0-34.0 [facility] Comment on above: Performed By: #### 2 615102, 1698525, 0386247438, 6677138, 52470418, 8101205, 68571964, 7807058, 2754477, 7239585, 65438014, 0471119 ####[facility] [address] [place] [address] MCHC (RBC) [Mass/Vol] 31.9 g/dL Normal 31.4-36.0 [facility] Comment on above: Performed By: #### 2 357997, 6184011, 4034099777, 6863059, 86515971, 7456179, 41967211, 7715432, 3247973, 3798220, 34411952, 1610434 ####[facility] [address] [place] [address] MCV (RBC) [Entitic vol] 77.1 fL Low 80.0-100.0 F [facility] Comment on above: Performed By: #### 2 449483, 7854196, 1361243599, 2885393, 68490922, 5552887, 51110650, 1118687, 4311701, 2440738, 03643744, 9716429 ####[facility] [address] [place] [address] Platelet mean volume (Bld) [Entitic vol] 7.5 fL Normal 6.4-10.8 [facility] Comment on above: Performed By: #### 2 650413, 7620988, 4961200236, 3252780, 91441006, 8118171, 13149051, 2790993, 6372657, 7936355, 52192685, 4286839 ####[address] [address] Platelets (Bld) [#/Vol] 249.0 E9/L Normal 150.0-500.0 [facility] Comment on above: Performed By: #### 2 467561, 6195840, 8765073613, 6543482, 86865464, 6273584, 85485995, 4998483, 7869031, 8154918, 24168677, 9124965 ####[address] [address] RBC (Bld) [#/Vol] 4.8 E12/L Normal 4.3-5.9 [facility] Comment on above: Performed By: #### 2 177643, 4652051, 5206190682, 1373926, 74765825, 0411042, 09086140, 3668433, 6470306, 9021976, 42175858, 8012373 ####[place] [address] [place] [address] WBC corrected for nucl RBC Auto (Bld) [#/Vol] 6.4 E9/L Normal 4.0-11.0 [facility] Comment on above: Result Comment: Slid e reviewed by cmk. Performed By: #### 2 397596, 6264952, 0106612661, 4174858, 43530307, 9190285, 39274144, 0506535, 3478754, 6743011, 69847137, 4202626 ####[facility] [address] [place] [address] CRPon 04-28-2020 CRP [Mass/Vol] 15.9 mg/dL High <=1.9 [facility] Comment on above: Performed By: #### 2 567874, 5099662, 6613252783, 8112511, 81727074, 4299873, 86267751, 3316936, 5302111, 3822350, 75350428, 5416214 ####[facility] [address] [place] [address] CTA Cheston 04-28-2020 CTA Chest Exam Date/Time: 04/28/2020 11:53 EST Reason for Exam: PE suspected, high prob;Other (please specify) Report IMPRESSION: NO CT EVIDENCE OF PULMONARY EMBOLISM. MILDLY ENLARGED MEDIASTINAL AND RIGHT HILAR LYMPH NODES, AND IN LIGHT OF THE EXTENSIVE LUNG FINDINGS, THE LYMPH NODES ARE SUSPECTED TO BE REACTIVE IN NATURE. THE LYMPH NODES COULD BE FURTHER ASSESSED WITH A FOLLOW-UP STUDY AFTER RESOLUTION OF THE LUNG FINDINGS. INCREASED DENSITIES EXTENSIVELY SCATTERED IN BOTH LUNGS, CONSISTENT WITH INFILTRATIVE CHANGES, WITH COVID 19 PNEUMONIA MOST LIKELY. CLINICAL HISTORY: PE suspected, high prob. Shortness of breath. Covid 19 positive. COMMENT: Axial images were obtained after the rapid injection of IV contrast with narrow collimation and reconstructed at a narrow interval. Coronal and sagittal reconstructions were performed. On the PACS, images were reviewed in cine display and using MIP postprocessing. Although the concentration of contrast material within the pulmonary arterial system is not optimal, there is sufficient contrast opacification of the pulmonary arteries, and no intraluminal filling defects are noted. The thoracic aorta is normal in diameter, without evidence of aneurysm or dissection. The heart is upper limits of normal in size. No pericardial effusion is noted. There are small nonspecific bilateral axillary lymph nodes. There are multiple mediastinal lymph nodes, with many of the mediastinal lymph small,, but there are enlarged paratracheal, paracarinal, and subcarinal mediastinal lymph nodes. There also are mildly enlarged right hilar lymph nodes. Left hilar lymph nodes are small and nonspecific. There are multiple irregular areas of increased density scattered throughout both lungs, from the apices to the bases, and in both peripheral and central locations. Most of the areas of increased density are groundglass opacifications, but there are a few areas of denser airspace opacification. The bilateral lung findings are nonspecific, but in light of the clinical history, are most probably due to Covid 19 pneumonia. No pneumothorax nor pleural effusion is evident. No lung mass is delineated, but the extensive areas of airspace opacification limit evaluation for a small lung mass. Superior portions of the liver and spleen are included within the pjktf-ud-txwx. There is diffuse fatty infiltration of the visualized portion of the liver. The visualized portion of the spleen appears within normal limits in size. All CT scans at this facility use dose modulation, iterative reconstruction, and/or weight based dosing when appropriate to reduce radiation dose to as low as reasonably Report achievable. FINAL REPORT Dictated: 04/28/2020 12:10 pm Dino Arce M.D. Signed (Electronic Signature): 04/28/2020 12:10 pm Signed by: Dino Arce M.D. Transcribed by: MAGGY Technologist: ALEJANDRO Technical Comments GFR (mL/min/1/73m2) >60 Contrast: Isovue 370 Contrast amount in ml's: 67 Normal [facility] Coding Summary.on 04-28-2020 Coding Summary. 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 However, the narrative phrase printed from the coding software may appear abbreviated, or result in slightly different terminology. Coded By: Mary Grace Paniagua Date Saved: 04/28/2020 09:26 am Normal [facility] Consent for Treatmenton Consent for Treatment [id number] 1.00CD:127 Normal [facility] D-Dimeron 04-28-2020 Fibrin D-dimer FEU (PPP) [Mass/Vol] 900 ng/mL Abnormal 215-500 [facility] Comment on above: Result Comment: Resu lts Called To Alpesh Reveles (ER) By SS And Read Back For Confirmation On 04/28/2020 13:46:50 EST Results Verified By Repeat Analysis. This D-Dimer assay may be used in conjunction with a non-high clinical pretest probability assessment to exclude deep-vein thrombosis(DVT). For exclusion of venous thrombosis or pulmonary embolism the analyte D-Dimer should not be used as an aid in patients with: Therapeutic dose anticoagulant therapy for >24 hours Fibrinolytic therapy within previous 7 days Trauma or surgery within previous 4 weeks Disseminated malignacies Aortic aneurysm Sepsis, severe infections, pneumonia, severe skin infections Liver cirrhosis Performed By: #### 2 252363, 6286113, 4836942150, 7984341, 33480184, 2187575, 64556574, 7088913, 1977777, 2326872, 36479170, 2551113 ####[facility] [address] [place] [address] ED Clinical Summaryon 2020 ED Clinical Summary [place] [address] ED Clinical Summary Person Information Name: SAMARA GUERRA/[facility] Age: 40 Years : 1980 Sex: Female Language: Mohawk PCP: MARS SOW MD Marital Status: Single Visit Id: Visit Reason: SOB - Shortness of breath; COVID POSITIVE- SOB Speciality: Acuity: 3 Enc Type: Observation Med Service: Medical Arrival: 04/28/2020 10:08:32 Discharge: LOS: 000 07:03 Checkin: 04/28/2020 10:08:32 Checkout: 04/28/2020 17:11:00 [facility] EVENTS: Event Name Event Status Request Date/Time Start Date/Time Complete Date/Time Arrive Complete 04/28/2020 10:08:32 04/28/2020 10:08:32 04/28/2020 10:08:32 Document Home Meds Complete 04/28/2020 10:08:32 04/28/2020 15:29:51 04/28/2020 15:29:51 Triage Complete 04/28/2020 10:08:32 04/28/2020 10:28:41 04/28/2020 10:28:41 Dr Exam Complete 04/28/2020 10:09:02 04/28/2020 10:09:02 04/28/2020 10:09:02 Registration Complete 04/28/2020 10:09:02 04/28/2020 10:09:32 04/28/2020 10:19:40 Dr Exam Complete 04/28/2020 10:09:15 04/28/2020 10:09:15 04/28/2020 10:09:15 Bed Assign Complete 04/28/2020 10:09:32 04/28/2020 10:09:32 04/28/2020 10:09:32 RN Exam Complete 04/28/2020 10:09:32 04/28/2020 12:03:06 04/28/2020 12:03:06 EKG Complete 04/28/2020 10:10:23 04/28/2020 10:29:13 Meds Admin Complete 04/28/2020 10:10:23 04/28/2020 10:35:17 Pending Labs Complete 04/28/2020 10:10:23 04/28/2020 16:16:38 Lab Complete 04/28/2020 10:10:23 04/28/2020 16:16:38 Urine Collect Complete 04/28/2020 10:10:23 04/28/2020 16:16:38 CT Complete 04/28/2020 10:10:23 04/28/2020 11:09:54 04/28/2020 11:53:21 Reg Complete Request 04/28/2020 10:19:40 Reg Bed Request Complete 04/28/2020 10:19:40 04/28/2020 10:19:40 04/28/2020 10:19:40 Pending Labs Complete 04/28/2020 10:43:51 04/28/2020 10:43:51 04/28/2020 10:59:08 Lab Complete 04/28/2020 10:43:51 04/28/2020 10:43:51 04/28/2020 10:59:08 Pending Labs Complete 04/28/2020 10:58:20 04/28/2020 10:58:20 04/28/2020 10:58:21 Pending Labs Complete 04/28/2020 11:11:56 04/28/2020 11:11:56 04/28/2020 11:12:02 Lab Complete 04/28/2020 11:11:56 04/28/2020 11:11:56 04/28/2020 11:12:02 Consult Request 04/28/2020 12:30:20 Hospitalist Consult Request 04/28/2020 12:30:21 Pending Labs Complete 04/28/2020 12:35:49 04/28/2020 13:10:21 RT Tx/ABG Request 04/28/2020 12:35:49 Patient Care Request 04/28/2020 12:52:19 Meds Admin Request 04/28/2020 12:52:19 RT Request 04/28/2020 12:52:19 RT Tx/ABG Request 04/28/2020 12:52:19 Bed Request Cancel 04/28/2020 12:52:19 04/28/2020 13:50:13 Reg Bed Request Cancel 04/28/2020 12:52:19 04/28/2020 13:50:13 Admit Request 04/28/2020 12:52:19 Pending Labs Cancel 04/28/2020 12:52:49 04/28/2020 13:22:46 Lab Cancel 04/28/2020 12:52:49 04/28/2020 13:22:46 Pending Labs Request 04/28/2020 12:53:24 Lab Request 04/28/2020 12:53:24 Meds Admin Request 04/28/2020 12:54:03 Meds Admin Request 04/28/2020 12:54:55 Pending Labs Complete 04/28/2020 13:20:25 04/28/2020 13:20:25 04/28/2020 13:47:03 Lab Complete 04/28/2020 13:20:25 04/28/2020 13:20:25 04/28/2020 13:47:03 Pending Labs Complete 04/28/2020 13:20:50 04/28/2020 13:20:50 04/28/2020 13:59:40 Lab Complete 04/28/2020 13:20:50 04/28/2020 13:20:50 04/28/2020 13:59:40 RT Request 04/28/2020 13:20:58 Pending Labs Complete 04/28/2020 13:22:11 04/28/2020 13:22:11 04/28/2020 13:47:30 Lab Complete 04/28/2020 13:22:11 04/28/2020 13:22:11 04/28/2020 13:42:00 Pending Labs Request 04/28/2020 13:27:57 Lab Request 04/28/2020 13:27:57 Meds Admin Complete 04/28/2020 13:49:37 04/28/2020 13:58:32 Bed Request Request 04/28/2020 13:50:28 Reg Bed Request Complete 04/28/2020 13:50:28 04/28/2020 17:09:46 04/28/2020 17:09:46 Admit Request 04/28/2020 13:50:28 Meds Admin Request 04/28/2020 14:41:32 Consult Request 04/28/2020 14:42:30 Possible SIRS Request 04/28/2020 15:35:33 Patient Care Request 04/28/2020 17:09:47 Patient Care Request 04/28/2020 17:09:47 ADDRESS: [address] [place] [address] [address] [facility] [id number] [facility] DOC NOTES: MEDICAL INFORMATION: Prescriptions Given: Medications to Continue Taking That Have Changed Other Medications START: gabapentin (gabapentin 400 mg Cap) 1 Capsules By Mouth 3 times a day. START: predniSONE (predniSONE 20 mg Tab) 1 Tablets By Mouth As Directed for 10 Days. take 2 tabs daily x4 days, then 1 tab daily x 4 days. Refills: 0. Medications to Continue with No Changes Other Medications albuterol (albuterol 0.083% Inh Darshana 3 mL) 3 Milliliter Inhalation. Q6H and PRN. amlodipine (amLODIPine 10 mg Tab) By Mouth every day. ascorbic acid (Vitamin C) 1tablet By Mouth every day. atenolol (atenolol 25 mg Tab) By Mouth every day. budesonide (budesonide 90 mcg/inh inhalation powder) 2 Puffs Inhalation every 4 hours. or as needed. busPIRone 15 Milligram By Mouth 3 times a day. cyclobenzaprine 10 Milligram By Mouth every day. duloxetine (duloxetine 60 mg Cap-DR) 1 Capsules By Mouth every day. (do not crush or chew). ibuprofen (ibuprofen 800 mg Tab) By Mouth 2 times a day. PATIENT EDUCATION INFORMATION: Instructions: Follow up: DIAGNOSIS: 1:Acute respiratory failure with hypoxia; 2:Allergic asthma; 3:Pneumonia due to COVID-19 virus; 4:Hyponatremia; 5:Hypertension; 6:Chronic GERD; 7:Depression with anxiety; 8:Morbid obesity due to excess calories; 9:No contraindication to deep vein thrombosis (DVT) prophylaxis Normal [facility] ED Note-Nursingon 04-28-2020 ED Note-Nursing Per physician pt was to be up out of bed, and see how to tolerate walking with no oxygen. Pt denies being able to get out of bed due to dizziness and sob. Alpesh GALEANO, notified. Normal [facility] ED Note-Physicianon 04-28-19 ED Note-Physician Basic Information Time Seen: Alpesh Reveles PA-C 04/28/2020 10:09 History of Present Illness 4-year-old female comes into the ED for evaluation of dyspnea. She is known Covid positive. Tested positive proximal 1 week ago. She presents via EMS today. She states she developed significant shortness of breath today, especially with any type of exertion. Per EMS she was 88/89% upon their arrival. She is currently on nasal cannula. She has no significant chest pain. Does have generalized myalgias and malaise. She has had mild cough intermittent fevers. No history of chronic lung disease. Non-smoker. Denies any concern for . She has taken ydfu-mvu-ilxkhyw cough and cold medications. Review of Systems A 10 point review of systems is negative except as noted above. Medical and Surgical History: Reviewed and noted Social history: Lives at home Tobacco: Denies Physical Exam Vitals & Measurements T: 37.6 ?C (Oral) HR: 98(Peripheral) BP: 142/95 SpO2: 97% HT: 160.0 cm HT: 160 cm WT: 137.0 kg WT: 137 kg BMI: 53.52 Nurses notes and vital signs reviewed and patient is not hypoxic on nasal cannula General: Dyspneic and fatigued, not in distress Skin: Warm, dry. Head: Atraumatic. Neck: No JVD. Eye: Normal conjunctiva. Ears, Nose, Mouth, and Throat: Sinus congestion, no difficulty with speaking or swallowing Cardiovascular: Not tachycardic Chest wall: Respiratory: Mildly labored respirations. No audible rhonchi or wheezing. Nonproductive cough Back: Normal range of motion. Musculoskeletal: Normal ROM with no gross deformity. Gastrointestinal: Soft, no reproducible tenderness Urological: Neurological: Awake and alert. No focal deficits. Follows commands. Psychiatric: Cooperative. Medical Decision Making Laboratory studies reviewed and noted. EKG shows no ischemic changes. CTA shows widespread findings consistent COVID-19 pneumonia, no PE. We attempted to ambulate the patient here. Simply moving from the bed to a standing position became significantly dyspneic, tachycardic and weak. Therefore no further ambulation was attempted. Case is discussed the hospitalist for admission, and blood gas has been ordered and is pending. Critical Care Time: 40 minutes, critical care time is separate from any procedures that are performed. The following was considered in the determination of critical care but not limited to the level medical decision-making, intensive cardiac and/or respiratory monitor, frequent vital sign monitoring, evaluation of laboratory studies, evaluation of a radiographic studies, oxygen monitoring and constant monitoring. Assessment/Plan 1. Pneumonia due to COVID-19 virus (U07.1: COVID-19) 2. Hypoxia (R09.02: Hypoxemia) Orders: Sodium Chloride 0.9% intravenous solution, 1,000 mL, Soln-IV, IV, Once, Stop date 04/28/20 10:10:00 EST, STAT, Start date 04/28/20 10:10:00 EST, mL/hr, Infuse over 61, minute(s) Automated Diff Basic Metabolic Panel Blood Gas Art CBC w/ Auto Diff CTA Chest ECG 12 Lead Adult ED Physician consult Hospitalist for continued care eGFR Extra SST Tube PT & PTT Troponin 0 Hr. UA With Cult Reflex Disposition Plan Patient Discharge Condition Disposition: Admitted to the hospital Condition: Improved and stable Counseled: Patient and/or family were counseled to workup, results, treatment plan and follow-up recommendations'ad Discharge Prescription List Prescriptions No active prescription medications Follow-up No qualifying data available Attestation Patient seen and evaluated by the physician retail assistant store manager. Attending physician was present in the emergency department and supervised care. This report was transcribed using voice recognition software. Every effort was made to ensure accuracy, however, inadvertently computerized high school learning support teacher mistakes may be present. Appropriate healthcare PPE was used in evaluating this patient. The patient was placed in a mask. The healthcare provider was wearing mask, gloves, googles and utilizing proper hand hygiene. All equipment was properly cleansed. Problem List/Past Medical History Ongoing Anxiety Asthma Headache Hypertension Morbid obesity with body mass index of 50 or higher Historical No qualifying data Procedure/Surgical History Endometrial ablation, None. Medications Inpatient NS 1000 ml Bolus, 1000 mL, IV, Once Home albuterol 0.083% Inh Darshana 3 mL, 2.5 mg= 3 mL, Inhalation amLODIPine 10 mg Tab, Oral, Daily atenolol 25 mg Tab, Oral, Daily busPIRone, 15 mg, Oral, TID cyclobenzaprine, Oral, Daily duloxetine 60 mg Cap-DR, 1 cap(s), Oral, Daily epinephrine 0.15 mg Inj kit, 150 mcg= 1 EA, IntraMuscular, As Directed, PRN, 1 refills, Not taking gabapentin 300 mg Cap, 300 mg= 1 cap(s), Oral, TID hydrochlorothiazide-l isinopril 12.5 mg-10 mg oral tablet, 1 tab(s), Oral, Daily, Not taking ibuprofen 800 mg Tab, Oral, BID pantoprazole 40 mg Oral EC Tab, 40 mg= 1 tab(s), Oral, Daily, Not taking predniSONE 20 mg Tab, 40 mg= 2 tab(s), Oral, Daily, Not taking predniSONE 20 mg Tab, 20 mg= 1 tab(s), Oral, As Directed Allergies lisinopril (Swelling of throat) Dust (Allergy test positive) Social History Alcohol Current, Wine, 1-2 times per year, 04/19/2019 Substance Abuse - Denies Substance Abuse, 04/19/2019 Tobacco Former smoker, quit more than 30 days ago, Quit smoking in 2013. Smoked 1 pack per day for 20 years Tobacco Use:. Never Smokeless Tobacco Use:., 04/22/2020 Former smoker, quit more than 30 days ago Tobacco Use:., 09/29/2019 Family History Acute myocardial infarction: Father and Brother. Drug dependency: Brother. Lab Results WBC: 6.4 E9/L (04/28/20 10:36:00) RBC: 4.8 E12/L (04/28/20 10:36:00) Hgb: 11.8 gm/dL Low (04/28/20 10:36:00) Hct: 37 % (04/28/20 10:36:00) MCV: 77.1 fL Low (04/28/20 10:36:00) MCH: 24.6 pg Low (04/28/20 10:36:00) MCHC: 31.9 gm/dL (04/28/20 10:36:00) RDW: 17.2 % High (04/28/20 10:36:00) Platelet: 249 E9/L (04/28/20 10:36:00) MPV: 7.5 fL (04/28/20 10:36:00) Neutro Auto: 80.8 % High (04/28/20 10:36:00) Lymph Auto: 13.7 % Low (04/28/20 10:36:00) [place] Auto: 4.9 % (04/28/20 10:36:00) Eos Auto: 0 % (04/28/20 10:36:00) Basophil Auto: 0.6 % (04/28/20 10:36:00) Neutro Absolute: 5.1 E9/L (04/28/20 10:36:00) Lymph Absolute: 0.9 E9/L Low (04/28/20 10:36:00) [place] Absolute: 0.3 E9/L (04/28/20 10:36:00) Eos Absolute: 0 E9/L (04/28/20 10:36:00) Basophil Absolute: 0 E9/L (04/28/20 10:36:00) PT: 13.3 second(s) High (04/28/20:36:00) INR: 1.1 (04/28/20:36:00) PTT: 28.1 second(s) (04/28/20:36:00) Glucose Lvl: 177 mg/dL (04/28/20:36:00) BUN: 15 mg/dL (04/28/20:36:00) Creatinine: 0.7 mg/dL (04/28/20:36:) eGFR: >60 (04/28/20:36:) eGFR AA: >60 (04/28/20:36:) BUN/Creat Ratio: 21 High (04/28/20:36:) Sodium Lvl: 134 mmol/L Low (04/28/20:36:) Potassium Lvl: 3.5 mmol/L (04/28/20:36:) Chloride: 96 mmol/L Low (04/28/20:36:) CO2: 24 mmol/L (04/28/20:36:) AGAP: 18 mEq/L High (04/28/20:36:00) Calcium Lvl: 8.9 mg/dL (04/28/20:36:00) Troponin: <2.30 Low (04/28/20:36:00) Diagnostic Results CTA Chest 04/28/20 12:13:58 IMPRESSION: NO CT EVIDENCE OF PULMONARY EMBOLISM. MILDLY ENLARGED MEDIASTINAL AND RIGHT HILAR LYMPH NODES, AND IN LIGHT OF THE EXTENSIVE LUNG FINDINGS, THE LYMPH NODES ARE SUSPECTED TO BE REACTIVE IN NATURE. THE LYMPH NODES COULD BE FURTHER ASSESSED WITH A FOLLOW-UP STUDY AFTER RESOLUTION OF THE LUNG FINDINGS. INCREASED DENSITIES EXTENSIVELY SCATTERED IN BOTH LUNGS, CONSISTENT WITH INFILTRATIVE CHANGES, WITH COVID 19 PNEUMONIA MOST LIKELY. CLINICAL HISTORY: PE suspected, high prob. Shortness of breath. Covid 19 positive. COMMENT: Axial images were obtained after the rapid injection of IV contrast with narrow collimation and reconstructed at a narrow interval. Coronal and sagittal reconstructions were performed. On the PACS, images were reviewed in cine display and using MIP postprocessing. Although the concentration of contrast material within the pulmonary arterial system is not optimal, there is sufficient contrast opacification of the pulmonary arteries, and no intraluminal filling defects are noted. The thoracic aorta is normal in diameter, without evidence of aneurysm or dissection. The heart is upper limits of normal in size. No pericardial effusion is noted. There are small nonspecific bilateral axillary lymph nodes. There are multiple mediastinal lymph nodes, with many of the mediastinal lymph small,, but there are enlarged paratracheal, paracarinal, and subcarinal mediastinal lymph nodes. There also are mildly enlarged right hilar lymph nodes. Left hilar lymph nodes are small and nonspecific. There are multiple irregular areas of increased density scattered throughout both lungs, from the apices to the bases, and in both peripheral and central locations. Most of the areas of increased density are groundglass opacifications, but there are a few areas of denser airspace opacification. The bilateral lung findings are nonspecific, but in light of the clinical history, are most probably due to Covid 19 pneumonia. No pneumothorax nor pleural effusion is evident. No lung mass is delineated, but the extensive areas of airspace opacification limit evaluation for a small lung mass. Superior portions of the liver and spleen are included within the dzctu-vs-qxks. There is diffuse fatty infiltration of the visualized portion of the liver. The visualized portion of the spleen appears within normal limits in size. All CT scans at this facility use dose modulation, iterative reconstruction, and/or weight based dosing when appropriate to reduce radiation dose to as low as reasonably achievable. Signed By: Dino Arce M.D. 04/28/20 11:53:21 GFR (mL/min/1/73m2) >60 Contrast: Isovue 370 Contrast amount in ml?s: 67 Signed By: Dino Arce M.D. EKG Results EC04/28/20: SINUS RHYTHM POSSIBLE ANTERIOR MYOCARDIAL INFARCTION, OF INDETERMINATE AGE EKG: Normal sinus rhythm rate is normal, the axis is normal there is no ectopy there are no acute ST changes. EKG interpretation by Dr. Barrios. ABNORMAL ECG Signed By: Tyler Barrios DO 04/28/2020 10:33:24 Normal [facility] Comment on above: Result Comment: Elec tronically Signed By: Alpesh Reveles PA-C\.br\Date and Time Signed: 04/28/20 12:37 EST\.br\Electronically Co-Signed By: Tyler Barrios DO\.br\Date and Time Co-Signed: 04/28/20 17:09 EST ED Patient Education Noteon 04-28-2020 ED Patient Education Note Normal [facility] ED Patient Summaryon 021 ED Patient Summary [address] [address] Patient Discharge Instructions Person Information Name: SAMARA GUERRA Age: 40 Years Arrival Date: 04/28/2020 10:08:32 Discharge Diagnosis: 1:Acute respiratory failure with hypoxia; 2:Allergic asthma; 3:Pneumonia due to COVID-19 virus; 4:Hyponatremia; 5:Hypertension; 6:Chronic GERD; 7:Depression with anxiety; 8:Morbid obesity due to excess calories; 9:No contraindication to deep vein thrombosis (DVT) prophylaxis Primary Care Physician: MARS SOW MD Provider Information Primary Provider: Tyler Barrios DO Advanced Hoop Puncher:Alpesh Reveles PA-C The exam and treatment you received in the Emergency Department were for an urgent problem and are not intended as complete care. It is important that you follow up with a doctor, nurse practitioner, or physician?s retail assistant store manager for ongoing care. If your symptoms become worse or you do not improve as expected and you are unable to reach your usual health care provider, you should return to the Emergency Department. We are available 24 hours a day. SAMARA GUERRA has been given the following list of patient education materials, prescriptions and follow-up instructions: Follow-up Instructions: In the event that this physician does not participate in your insurance network, please consult with your insurance company to find a nearby participating provider. Patient Education Materials: A MESSAGE TO ALL PATIENTS REGARDING OPIOIDS PRESCRIPTION OPIOIDS: WHAT YOU NEED TO KNOW Prescription opioids can be used to help relieve kcemedvr-cz-odldcj pain and are often prescribed following a surgery or injury, or for certain health conditions. These medications can be an important part of the treatment but also come with serious risks. It is important to work with your healthcare provider to make sure you are getting the safest, most effective care. WHAT ARE THE RISKS AND SIDE EFFECTS OF OPIOID USE? Prescription opioids carry serious risks of addiction and overdose, especially with prolonged use. An opioid overdose, often marked by slowed breathing, can cause sudden . The use of prescription opioids can have a number of side effects as well, even when taken as directed: ? Tolerance?meaning you might need to take more of the medication for the same pain relief ? Physical dependence?meaning you have symptoms of withdrawal when a medication is stopped ? Increased sensitivity to pain ? Constipation ? Nausea, vomiting, and dry mouth ? Sleepiness and dizziness ? Confusion ? Depression ? Low levels of testosterone that can result in lower sex drive, energy, and strength ? Itching and sweating RISKS ARE GREATER WITH: ? History of drug misuse, substance use disorder, or overdose ? Mental health conditions (such as depression or anxiety) ? Sleep apnea ? Older age (65 years and older) ? Avoid alcohol while taking prescription opioids. Also, unless specifically advised by your health care provider, medications to avoid include: ? Benzodiazepines (such as Xanax or Valium) ? Muscle relaxants (such as Soma or Flexeril) ? Hypnotics (such as Ambien or Lunesta) ? Other prescription opioids KNOW YOUR OPTIONS Talk to your health care provider about ways to manage your pain that don?t involve prescription opioids. Some of these options may actually work better and have fewer risks and side effects. Options may include: ? Pain relievers such as acetaminophen, ibuprofen, and naproxen ? Some medication that are also used for depression or seizures ? Physical therapy and exercise ? Cognitive behavioral therapy, a psychological, goal-directed approach, in which patients learn how to modify physical, behavioral, and emotional triggers of pain and stress. IF YOU ARE PRESCRIBED OPIOIDS FOR PAIN: ? Never take opioids in greater amounts or more often than prescribed. ? Follow up with your primary health care provider. o Work together to create a plan on how to manage your pain. o Talk about ways to help manage your pain that don?t involve prescription opioids. o Talk about any and all concerns and side effects. ? Help prevent misuse and abuse o Never sell or share prescription opioids. o Never use another person?s prescription opioids. ? Store prescription opioids in a secure place and out of reach of others (this may include visitors, children, friends, and family). ? Safely dispose of unused prescription opioids: Find your community drug take-back program or your pharmacy mail-back program, or flush them down the toilet, following guidance from the Food and Drug Administration (www.fda.gov/Drugs/Re sourcesForYou). ? Visit www.cdc.gov/drugoverd ose to learn about the risks of opioids abuse and overdose. ? If you believe you may be struggling with addiction, tell your health healthcare business analyst and ask for guidance or call [facility]?S National Helpline at 9-697-348-RBGL. a Source: [place] Department of Health and Human Services/Center for Disease Control & Prevention [facility] Medications Given: Medication Dose Route Sodium Chloride 0.9% 1000.00 mL IV Right Antecubit Henrique remdesivir 200.00 mg IV Piggyback Right Antecubit Henrique dexamethasone 6.00 mg IV Push Right Antecubit Henrique ibuprofen 800.00 mg Oral Medication Information: Medications to Continue Taking That Have Changed Other Medications START: gabapentin (gabapentin 400 mg Cap) 1 Capsules By Mouth 3 times a day. START: predniSONE (predniSONE 20 mg Tab) 1 Tablets By Mouth As Directed for 10 Days. take 2 tabs daily x4 days, then 1 tab daily x 4 days. Refills: 0. Medications to Continue with No Changes Other Medications albuterol (albuterol 0.083% Inh Darshana 3 mL) 3 Milliliter Inhalation. Q6H and PRN. amlodipine (amLODIPine 10 mg Tab) By Mouth every day. ascorbic acid (Vitamin C) 1tablet By Mouth every day. atenolol (atenolol 25 mg Tab) By Mouth every day. budesonide (budesonide 90 mcg/inh inhalation powder) 2 Puffs Inhalation every 4 hours. or as needed. busPIRone 15 Milligram By Mouth 3 times a day. cyclobenzaprine 10 Milligram By Mouth every day. duloxetine (duloxetine 60 mg Cap-DR) 1 Capsules By Mouth every day. (do not crush or chew). ibuprofen (ibuprofen 800 mg Tab) By Mouth 2 times a day. Comment: Pharmacy Information: You may receive a survey from [employer] asking you to rate your care experience. Your feedback is important and will help us understand what we do well and how we can improve the quality of care we provide to you, your loved ones and our community. It?s an honor to serve you. Thank you for choosing [facility] Patient Education Materials: CHARLIE Faith DIANE A , have received the following patient education materials/instruction s and have verbalized understanding: Patient Education Materials: Follow-up Instructions: Patient Signature Date Clinician/Nurse Signature Date 04/28/2020 17:11:02 Normal [facility] Ferritinon 04-28-2020 Ferritin [Mass/Vol] 103 ng/mL [facility] Comment on above: Result Comment: NORM ALS MEN <30 YRS 16-132 ng/mL MEN >30 YRS 8-338 ng/mL WOMEN (PREMEN) 6-104 ng/mL WOMEN (POSTMEN) 12-210 ng/mL Performed By: #### 2 [id number], [id number], [id number], 3098431, 97589795, 1600950, 21328272, 2235765, 4510101, 4718115, 57213544, 9227971 ####[facility] [address] [place] [address] Hep Func Panelon 04-28-2020 Bilirubin.direct [Mass/Vol] UTC Abnormal 0.1-0.9 [facility] Comment on above: Result Comment: Resu lt verified by [employer]. Performed result UTC (Unable to Calculate) was sent as an Alpha code due the inability to calculate a valid numeric value. Performed By: #### 2 230175, 3922051, [id number], 9892283, 56137640, 2735967, 35324091, 8104301, 0714357, 8750888, 54496733, 1642725 ####[facility] [address] [place] [address] Albumin [Mass/Vol] 3.5 g/dL Normal 3.3-5.0 [facility] Comment on above: Performed By: #### 2 274526, 3102476, [id number], 0731074, 42775657, 7137628, 55722830, 8372777, 3359332, 0986349, 94772464, 6778670 ####[address] [place] [address] Albumin [Mass/Vol] 0.8 g/dL Low 1.1-2.2 [facility] Comment on above: Performed By: #### 2 192571, 1270705, [id number], 9197464, 88525464, 0693488, 74026879, 0548238, 4583672, 7669122, 11247735, 4251887 ####[address] [place] [address] ALP [Catalytic activity/Vol] 113 Int._Unit/L High 21-98 [facility] Comment on above: Performed By: #### 2 904630, 9729346, [id number], 5886792, 36644716, 0289986, 72868569, 6720401, 1980866, 0194890, 46827156, 4435971 ####[facility] [address] [place] [address] ALT No additional P-5'-P [Catalytic activity/Vol] 22 Int._Unit/L Normal 6-46 [facility] Comment on above: Performed By: #### 2 221872, 1344173, [id number], 0736289, 68886065, 5016012, 42031706, 0030147, 7359918, 0840365, 44803462, 6171720 ####[facility] [address] [place] [address] AST [Catalytic activity/Vol] 25 Int._Unit/L Normal 5-43 [facility] Comment on above: Performed By: #### 2 927846, 3549626, [id number], 2103790, 42405177, 7520022, 34011858, 2570050, 7496193, 7499666, 74385979, 5430396 ####[facility] [address] [place] [address] Bilirubin [Mass/Vol] 0.4 mg/dL Normal 0.0-1.[address] [facility] Comment on above: Performed By: #### 2 290268, 3722135, [id number], 9363740, 53246200, 9004453, 82040528, 7548863, 9951148, 2716567, 28543782, 6247022 ####[facility] [address] [place] [address] Bilirubin.direct [Mass/Vol] mg/dL Normal 0.1-0.4 [facility] Comment on above: Performed By: #### 2 354014, 3690458, [id number], 9421057, 97870375, 1591002, 58660325, 2294044, 7045358, 6216538, 17309982, 5263551 ####[facility] [address] [place] [address] Globulin (S) [Mass/Vol] 4.5 g/dL High 1.4-4.0 [facility] Comment on above: Performed By: #### 2 786816, 3005104, [id number], 0223035, 18263193, 6155663, 31527394, 8670069, 1651317, 7249752, 82679537, 2080898 ####[facility] [address] [place] [address] Protein [Mass/Vol] 8.0 g/dL High 6.0-7.8 [facility] Comment on above: Performed By: #### 2 662322, 4167783, [id number], 2091639, 55453766, 5873947, 47890922, 0648338, 0534590, 3754481, 24204449, 0109902 ####[facility] [address] [place] [address] History and Physicalon 04-28 History and Physical Basic Information Accompanied by: No Accompaniment Source of History: Self Present at Bedside: none Referral Source: ED History Limitation: None Chief Complaint Pt here for SOB. Pt is covid +, here for increased work of breathing. Pt was taking steriod thought to be getting better but woke up today with difficulty. O2 on ra was 90% History of Present Illness Pt is a 40 F PMH HTN, chronic GERD, allergic asthma, admitted from ED complaining of cough, sob. pt says this has been going on for about one week. Pt with subjective fever. Pt with significant sob both at rest and with exertion. Pt with cough, little production. Pt denies any chest pain. Pt denies any nausea or vomiting, has had a decreased appetite. Pt has had some intermittent diarrhea, no abdominal pain, no dysuria. Pt with well controlled allergic asthma, only uses inhaler prn sparingly. pt with no history of CAD. Review of Systems Additional ROS info: Except as noted in the above Review of Systems and in the History of Present Illness all other systems have been reviewed and are negative or noncontributory. Physical Exam Vitals & Measurements T: 37.6 ?C (Oral) HR: 90(Peripheral) RR: 24 BP: 125/67 SpO2: 95% WT: 137.0 kg WT: 137 kg General: alert, moderate distress Skin: warm, dry Head: no trauma, normocephalic Neck: Trachea midline, no adenopathy, no tenderness Eye: normal conjunctiva, sclera clear ENMT: oral mucosa dry, no pharyngeal erythema or exudate Cardiovascular: tachycardiac rate and regular rhythm, normal peripheral perfusion Respiratory: Lungs rhonci bilaterally, respirations labored, tachypneic Chest wall: no deformity. Gastrointestinal: soft, non distended, no tenderness, no guarding. Back: No tenderness, Normal ROM, Normal alignment. Extremities: no deformity, no trauma Neurological: oriented x 4, LOC appropriate for age, CN II-XII intact, motor strength equal & normal bilaterally, sensation equal & normal bilaterally, speech normal Psychiatric: cooperative, affect appropriate for age, normal judgement, normal psychiatric thoughts. Lab Results WBC: 6.4 E9/L (04/28/20 10:36:00) RBC: 4.8 E12/L (04/28/20 10:36:00) Hgb: 11.8 gm/dL Low (04/28/20 10:36:00) Hct: 37 % (04/28/20 10:36:00) MCV: 77.1 fL Low (04/28/20 10:36:00) MCH: 24.6 pg Low (04/28/20 10:36:00) MCHC: 31.9 gm/dL (04/28/20 10:36:00) RDW: 17.2 % High (04/28/20 10:36:00) Platelet: 249 E9/L (04/28/20 10:36:00) MPV: 7.5 fL (04/28/20 10:36:00) Neutro Auto: 80.8 % High (04/28/20 10:36:00) Lymph Auto: 13.7 % Low (04/28/20 10:36:00) [place] Auto: 4.9 % (04/28/20 10:36:00) Eos Auto: 0 % (04/28/20 10:36:00) Basophil Auto: 0.6 % (04/28/20 10:36:00) Neutro Absolute: 5.1 E9/L (04/28/20 10:36:00) Lymph Absolute: 0.9 E9/L Low (04/28/20 10:36:00) [place] Absolute: 0.3 E9/L (04/28/20 10:36:00) Eos Absolute: 0 E9/L (04/28/20 10:36:00) Basophil Absolute: 0 E9/L (04/28/20 10:36:00) PT: 13.3 second(s) High (04/28/20 10:36:00) INR: 1.1 (04/28/20 10:36:00) PTT: 28.1 second(s) (04/28/20 10:36:00) D-Dimer: 900 ng/mL Critical (04/28/20 10:36:00) Glucose Lvl: 177 mg/dL (04/28/20 10:36:00) BUN: 15 mg/dL (04/28/20 10:36:00) Creatinine: 0.7 mg/dL (04/28/20 10:36:00) eGFR: >60 (04/28/20 10:36:00) eGFR AA: >60 (04/28/20 10:36:00) BUN/Creat Ratio: 21 High (04/28/20 10:36:00) Sodium Lvl: 134 mmol/L Low (04/28/20 10:36:00) Potassium Lvl: 3.5 mmol/L (04/28/20 10:36:00) Chloride: 96 mmol/L Low (04/28/20 10:36:00) CO2: 24 mmol/L (04/28/20 10:36:00) AGAP: 18 mEq/L High (04/28/20 10:36:00) Calcium Lvl: 8.9 mg/dL (04/28/20 10:36:00) Alk Phos: 113 Int._Unit/L High (04/28/20 10:36:00) ALT: 22 Int._Unit/L (04/28/20 10:36:00) AST: 25 Int._Unit/L (04/28/20 10:36:00) Total Protein: 8 gm/dL High (04/28/20 10:36:00) Albumin Lvl: 3.5 gm/dL (04/28/20 10:36:00) Globulin: 4.5 gm/dL High (04/28/20 10:36:00) A/G Ratio: 0.8 Low (04/28/20 10:36:00) Bili Total: 0.4 mg/dL (04/28/20 10:36:00) Bili Direct: <0.1 (04/28/20 10:36:00) Bili Indirect: Unable to Calculate Abnormal (04/28/20 10:36:00) CRP: 15.9 mg/dL High (04/28/20 10:36:00) LDH: 276 Int._Unit/L High (04/28/20 10:36:00) Troponin: <2.30 Low (04/28/20 10:36:00) Ferritin Lvl: 103 ng/mL (04/28/20 10:36:00) Procalcitonin: 0.07 ng/mL (04/28/20 10:36:00) pH Arterial: 7.478 High (04/28/20 13:05:00) P CO2 Arterial: 33.8 mmHg Low (04/28/20 13:05:00) P O2 Arterial: 49 mmHg Low (04/28/20 13:05:00) Base Excess Arterial: 1.8 mmol/L Low (04/28/20 13:05:00) HCO3 Arterial: 25.8 mmol/L (04/28/20 13:05:00) Total Hgb Art: 11.7 gm/dL Low (04/28/20 13:05:00) FO2Hb Art: 85.8 % Low (04/28/20 13:05:00) FCOHb Art: 1.1 % Low (04/28/20:05:00) FMetHb Art: 0.8 % (04/28/20 13:05:00) O2 Sat Art: 87.5 % Low (04/28/20 13:05:00) lath hand+ Art: 140 mmol/L (04/28/20 13:05:00) cK+ Art: 3.5 mmol/L (04/28/20 13:05:00) cCa2+ Art: 4.53 mg/dL (04/28/20 13:05:00) cCl- Art: 103 mmol/L (04/28/20 13:05:00) cGlu Art: 98 mg/dL (04/28/20 13:05:00) cLac Art: 1 mmol/L Low (04/28/20 13:05:00) AaDO2 Art: 135.1 High (04/28/20 13:05:00) a/A Ratio Art: 26.6 (04/28/20 13:05:00) Sample Type: Arterial (04/28/20 13:05:00) Sample Site: RR (04/28/20 13:05:00) Device: CANNULA (04/28/20 13:05:00) FIO2 B.0 (04/28/20:05:00) Flow: 3.00 (04/28/20 13:05:00) Allens Test: Positive (04/28/20 13:05:00) Called To: yes (04/28/20:05:00) Called By: keren (04/28/20:05:00) Dt/Tm Notified: 13:09:00 (04/28/20 13:05:00) Drawn by: keren (04/28/20 13:05:00) Diagnostic Results EKG NSR [address]-T wave changes Images CTA Chest 04/28/20 12:13:58 IMPRESSION: NO CT EVIDENCE OF PULMONARY EMBOLISM. MILDLY ENLARGED MEDIASTINAL AND RIGHT HILAR LYMPH NODES, AND IN LIGHT OF THE EXTENSIVE LUNG FINDINGS, THE LYMPH NODES ARE SUSPECTED TO BE REACTIVE IN NATURE. THE LYMPH NODES COULD BE FURTHER ASSESSED WITH A FOLLOW-UP STUDY AFTER RESOLUTION OF THE LUNG FINDINGS. INCREASED DENSITIES EXTENSIVELY SCATTERED IN BOTH LUNGS, CONSISTENT WITH INFILTRATIVE CHANGES, WITH COVID 19 PNEUMONIA MOST LIKELY. CLINICAL HISTORY: PE suspected, high prob. Shortness of breath. Covid 19 positive. COMMENT: Axial images were obtained after the rapid injection of IV contrast with narrow collimation and reconstructed at a narrow interval. Coronal and sagittal reconstructions were performed. On the PACS, images were reviewed in cine display and using MIP postprocessing. Although the concentration of contrast material within the pulmonary arterial system is not optimal, there is sufficient contrast opacification of the pulmonary arteries, and no intraluminal filling defects are noted. The thoracic aorta is normal in diameter, without evidence of aneurysm or dissection. The heart is upper limits of normal in size. No pericardial effusion is noted. There are small nonspecific bilateral axillary lymph nodes. There are multiple mediastinal lymph nodes, with many of the mediastinal lymph small,, but there are enlarged paratracheal, paracarinal, and subcarinal mediastinal lymph nodes. There also are mildly enlarged right hilar lymph nodes. Left hilar lymph nodes are small and nonspecific. There are multiple irregular areas of increased density scattered throughout both lungs, from the apices to the bases, and in both peripheral and central locations. Most of the areas of increased density are groundglass opacifications, but there are a few areas of denser airspace opacification. The bilateral lung findings are nonspecific, but in light of the clinical history, are most probably due to Covid 19 pneumonia. No pneumothorax nor pleural effusion is evident. No lung mass is delineated, but the extensive areas of airspace opacification limit evaluation for a small lung mass. Superior portions of the liver and spleen are included within the ezrhc-se-abju. There is diffuse fatty infiltration of the visualized portion of the liver. The visualized portion of the spleen appears within normal limits in size. All CT scans at this facility use dose modulation, iterative reconstruction, and/or weight based dosing when appropriate to reduce radiation dose to as low as reasonably achievable. Signed By: Dino Arce M.D. 04/28/20 11:53:21 GFR (mL/min/1/73m2) >60 Contrast: Isovue 370 Contrast amount in ml?s: 67 Signed By: Dino Arce M.D. Assessment/Plan 1. Acute respiratory failure with hypoxia (J96.01: Acute respiratory failure with hypoxia) - PaO2 49 on ABG on RA - secondary to bilateral covid 19 pneumonia - remdesivir, decadron, baricitinib day 1 - monitor inflammatory markers, LFT - high flow oxygen, titrate for O2 sat greater than 92% - currently on high flow 50 liters and 50%, will increase accordingly - IS, out of bed to chair TID with meals - consult pulmonary 2. Allergic asthma (J45.909: Unspecified asthma, uncomplicated) - stable, not in acute exacerbation 3. Pneumonia due to COVID-19 virus (U07.1: COVID-19) - as above 4. Hyponatremia (E87.1: Hypo-osmolality and hyponatremia) - secondary to dehydration, IVF, BMP in AM 5. Hypertension (I10: Essential (primary) hypertension) - norvasc, atenolol, lisinopril/hctz 6. Chronic GERD (K21.9: Gastro-esophageal reflux disease without esophagitis) - protonix 7. Depression with anxiety (F41.8: Other specified anxiety disorders) - lindsey lu 8. Morbid obesity due to excess calories (E66.01: Morbid (severe) obesity due to excess calories) - BMI 53 - lifestyle modification, outpatient PCP follow up 9. No contraindication to deep vein thrombosis (DVT) prophylaxis (Z78.9: Other specified health status) - SCDs, lovenox pt will require greater than 2 midnights stay for above pt wishes to be a full code critical care time 55 minutes separate from billable procedures Orders: acetaminophen, 650 mg = 2 tab(s), Tab, Oral, q6hr PRN Pain, Routine, Start date 04/28/20 12:51:00 EST Al hydroxide/Mg hydroxide/simethicone , 30 mL, Susp-Oral, Oral, q6hr PRN Indigestion, STAT, Start date 04/28/20 12:51:00 EST baricitinib, 4 mg = 2 tab(s), Tab, Oral, Daily, Routine, Start date 04/28/20 12:54:00 EST dexamethasone, 6 mg = 1.5 mL, Injection, IV Push, Daily, Routine, Start date 04/28/20 12:54:00 EST enoxaparin, 40 mg = 0.4 mL, Injection, SubCutaneous, Daily, Routine, Start date 04/29/20 9:00:00 EST ibuprofen, 800 mg = 1 tab(s), Tab, Oral, Once, Stop date 04/28/20 13:48:00 EST, STAT, Start date 04/28/20 13:48:00 EST ibuprofen, Tab, Misc, Once, Stop date 04/28/20 13:51:27 EST, Physician Stop, 04/28/20 13:51:27 EST magnesium hydroxide, 30 mL, Susp-Oral, Oral, q6hr PRN Constipation, STAT, Start date 04/28/20 12:51:00 EST ondansetron, 4 mg = 2 mL, Injection, IV Push, q6hr PRN Nausea, Routine, Start date 04/28/20 12:51:00 EST remdesivir + Sodium Chloride 0.9% intravenous solution 250 mL, 100 mg = 20 mL, IV Piggyback, Noon for 4 dose(s), Stop date 05/03/20 11:59:00 EST, Routine, Start date 04/29/20 12:00:00 EST, 250 mL/hr, Infuse over 1 hour(s) remdesivir + Sodium Chloride 0.9% intravenous solution 250 mL, 200 mg = 40 mL, IV Piggyback, Once, Stop date 04/28/20 13:00:00 EST, Routine, Start date 04/28/20 13:00:00 EST, 250 mL/hr, Infuse over 1 hour(s) Sodium Chloride 0.9% intravenous solution 1,000 mL, 1,000 mL, IV, 75 mL/hr, Routine, Start date 04/28/20 14:41:00 EST, 13.3 hour(s), Total volume (mL): 1,000, 137 kg, 2.47, m2 Ambulate with Assistance Below the Knee Intermittent Pneumatic Compression Device C-Reactive Protein C-Reactive Protein Cardiac Monitoring Comprehensive Metabolic Panel Consult to Pulmonology D-Dimer D-Dimer Evaluate Need For Continued Telemetry Ferritin Ferritin Hepatic Function Panel Incentive Spirometry Intake and Output Lactate Dehydrogenase Lactate Dehydrogenase Notify Provider Vital Signs Notify Provider Vital Signs Oxygen Protocol Place in Status Procalcitonin Pulse Oximetry Regular Diet Vital Signs Weight Problem List/Past Medical History Ongoing Anxiety Asthma Chronic GERD Depression with anxiety Headache Hypertension Morbid obesity due to excess calories Morbid obesity with body mass index of 50 or higher Historical No qualifying data Procedure/Surgical History Endometrial ablation, None. Medications Inpatient acetaminophen 325 mg Tab, 650 mg= 2 tab(s), Oral, q6hr, PRN Al hydroxide/Mg hydroxide/simethicone 200 mg-200 mg-20 mg/5 mL oral suspension, 30 mL, Oral, q6hr, PRN baricitinib 2 mg oral tablet, 4 mg= 2 tab(s), Oral, Daily dexamethasone 4 mg/mL Inj 1 mL, 6 mg= 1.5 mL, IV Push, Daily Lovenox 40 mg/0.4 mL SC Darshana, 40 mg= 0.4 mL, SubCutaneous, Daily Milk of Magnesia 8% Susp-Oral, 30 mL, Oral, q6hr, PRN remdesivir additive + Sodium Chloride 0.9% intravenous solution 250 mL Sodium Chloride 0.9% IV Darshana 1000 mL 1,000 mL, 1000 mL, IV Zofran 4 mg/2 mL Injection, 4 mg= 2 mL, IV Push, q6hr, PRN Home albuterol 0.083% Inh Darshana 3 mL, 2.5 mg= 3 mL, Inhalation amLODIPine 10 mg Tab, Oral, Daily atenolol 25 mg Tab, Oral, Daily busPIRone, 15 mg, Oral, TID cyclobenzaprine, Oral, Daily duloxetine 60 mg Cap-DR, 1 cap(s), Oral, Daily epinephrine 0.15 mg Inj kit, 150 mcg= 1 EA, IntraMuscular, As Directed, PRN, 1 refills, Not taking gabapentin 300 mg Cap, 300 mg= 1 cap(s), Oral, TID hydrochlorothiazide-l isinopril 12.5 mg-10 mg oral tablet, 1 tab(s), Oral, Daily, Not taking ibuprofen 800 mg Tab, Oral, BID pantoprazole 40 mg Oral EC Tab, 40 mg= 1 tab(s), Oral, Daily, Not taking predniSONE 20 mg Tab, 40 mg= 2 tab(s), Oral, Daily, Not taking predniSONE 20 mg Tab, 20 mg= 1 tab(s), Oral, As Directed Allergies lisinopril (Swelling of throat) Dust (Allergy test positive) Social History Alcohol Current, Wine, 1-2 times per year, 04/19/2019 Substance Abuse - Denies Substance Abuse, 04/19/2019 Tobacco Former smoker, quit more than 30 days ago, Quit smoking in 2013. Smoked 1 pack per day for 20 years Tobacco Use:. Never Smokeless Tobacco Use:., 04/22/2020 Former smoker, quit more than 30 days ago Tobacco Use:., 09/29/2019 Family History Acute myocardial infarction: Father and Brother. Anxiety: Negative: Sister. Drug dependency: Brother. Normal [facility] Comment on above: Result Comment: Elec tronically Signed By: CAITLIN WALTON, Isa\.br\Date and Time Signed: 04/28/20 15:13 EST LDHon 04-28-2020 LDH [Catalytic activity/Vol] 276 Int._Unit/L High 93-218 [facility] Comment on above: Performed By: #### 2 525320, 0702175, [id number], 3339659, 06918363, 9500031, 27746252, 6726437, 5607948, 3986967, 06025771, 7805128 ####[facility] [address] [place] [address] PT & PTTon 04-28-2020 aPTT Coag (PPP) [Time] 28.1 second(s) Normal 25.1-36.5 [facility] Comment on above: Result Comment: Hepa rin therapeutic range (represented by Anti-Factor Xa activity of 0.2 - 0.4 U/mL) corresponds to PTT of 56.6 - 109.0 sec. Performed By: #### 2 324849, 9993661, [id number], 1077934, 51893137, 5704060, 41825617, 3545333, 4677746, 7301851, 01185024, 2421882 ####[facility] [address] [place] [address] INR Coag (PPP) [Relative time] 1.1 {INR} [facility] Comment on above: Result Comment: INR results are specifically intended to assess patients stabilized on long-term Anticoagulation therapy suggested INR?s ?Less Intensive Anticoagulation? 2.0 ? 3.0 Conventional Range 3.0 ? 4.5 Performed By: #### 2 880181, 0268820, [id number], 9605253, 82858134, 1959916, 16995996, 0229251, 2629428, 7466720, 73707842, 3079077 ####[facility] [address] [place] [address] PT Coag (PPP) [Time] 13.3 second(s) High 10.2-12.9 [facility] Comment on above: Performed By: #### 2 796160, 0569972, [id number], 0112904, 60231246, 9966379, 54733272, 9386385, 7739375, 3551410, 30183618, 0328258 ####[facility] [address] [place] [address] Pre-Arrival Noteon Pre-Arrival Note Pre-Arrival Summary Name: [facility], shortness of breath Current Date: 04/28/2020 10:09:48 EST Gender: Date of : Age: Pre-Arrival Type: EMS ETA: 04/28/2020 10:31:00 EST Primary Care Physician: Presenting Problem: Pre-Arrival User: Opal Galvan Referring Source: Location: Completion Date/Time: 04/28/2020 10:01:00 [facility] Emergency Department Pre-Hospital Report Form Vital Signs: SHortness of breath Pre-Hospital Report: Treatment in Route: Response to Treatment: Misc. Issues: Normal [facility] Procalcitoninon 04-28-2020 Procalcitonin .07 ng/mL Normal .00-.50 [facility] Comment on above: Result Comment: <0.5 ng/mL Low risk of severe sepsis and/or shock >2.0 ng/mL High risk of severe sepsis and/or shock Concentrations under 0.5 ng/mL do not exclude local infections or systemic infections in their initial stages (e.g.. under six hours from onset of illness). PCT concentrations between 0.5 and 2.0 ng/mL should be interpreted with consideration of the patient's history. In this range, it is recommended to retest PCT within 6 to 24 hours. Performed By: #### 2 134786, 1755838, [id number], 1641253, 18712137, 2463164, 27807510, 5748436, 8515075, 0491236, 39585082, 0358071 ####[facility] [address] [place] [address] Troponin 0 Hr.on 04-28-2020 Troponin I.cardiac [Mass/Vol] ng/mL Low 10.10-27.10 [facility] Comment on above: Result Comment: The 95% CI (Confidence Interval) PPV (Positive Predictive Value) for myocardial infarction in females is 38 pg/mL, in males 51 pg/mL. The results should be used in conjunction with clinical conditions of myocardial infarction. (Access High Sensitivity Troponin I Instructions For Use, Oumar Jeremiah, November 2017) Performed By: #### 2 063140, 8753601, [id number], 8083173, 99903835, 7643073, 73049954, 8181276, 6143783, 4876457, 36505158, 8677337 ####[facility] [address] [place] [address] UA With Cult Reflexon 2020 Bilirubin Ql (U) Negative Normal Negative [facility] Comment on above: Performed By: #### 1 [id number] ####[facility] [address] [place] [address] Clarity (U) CLEAR Normal Clear [facility] Comment on above: Performed By: #### 1 1441995 ####[address] [address] Color (U) YELLOW Normal Yellow [facility] Comment on above: Performed By: #### 1 7977414 ####[address] [address] Epithelial cells.squamous LM.HPF (Urine sed) [#/Area] 0-2 Normal 0-2 [facility] Comment on above: Performed By: #### 1 8087376 ####[address] [address] Glucose Test strip (U) [Mass/Vol] Negative Normal Negative [facility] Comment on above: Performed By: #### 1 8550784 ####[address] [address] Hemoglobin Ql (U) TRACE Abnormal Negative [facility] Comment on above: Performed By: #### 1 3367161 ####[facility] [address] [place] [address] Ketones (U) [Mass/Vol] Negative Normal Negative [facility] Comment on above: Performed By: #### 1 0062256 ####[address] [address] [place].plasma/[place]. RBC (Bld) [Mass ratio] 0-3 Normal 0-3 [facility] Comment on above: Performed By: #### 1 4108617 ####[address] [place] [address] Nitrite Ql (U) Negative Normal Negative [facility] Comment on above: Performed By: #### 1 2672009 ####[facility] [address] [place] [address] pH (U) 6.5 [pH] 5.0-9.0 [facility] Comment on above: Performed By: #### 1 4927520 ####[address] [address] Protein (U) [Mass/Vol] 1+ Abnormal Negative Fi [facility] Comment on above: Performed By: #### 1 3031110 ####[address] [address] Specific gravity (U) [Rel density] 1.015 1.005-1.030 [facility] Comment on above: Performed By: #### 1 2700844 ####[address] [address] UA Spec Desc Clean Catch Normal [facility] Comment on above: Performed By: #### 1 0914710 ####[address] [address] Urobilinogen Qn (U) 0.2 {Joe'U}/dL Normal 0.0-1.0 [facility] Comment on above: Performed By: #### 1 3475995 ####[address] [address] WBC Auto Ql (U) Negative Normal Negative [facility] Comment on above: Performed By: #### 1 7723565 ####[address] [address] WBC LM.HPF (Urine sed) [#/Area] 0-5 Normal 0-5 [facility] Comment on above: Performed By: #### 1 7665015 ####[address] [address] eGFRon 04-28-2020 GFR/1.73 sq M predicted among blacks MDRD (S/P/Bld) [Vol rate/Area] mL/min/{1.73_m2} Normal >=59 [facility] Comment on above: Order Comment: Order added by Discern Expert. Result Comment: eGFR is race adjusted. AA=. Performed By: #### 2 730325, 4340031, [id number], 2072886, 70879533, 9743566, 54028468, 1609541, 1282654, 3739041, 34295045, 4607529 ####[facility] [address] [place] [address] GFR/1.73 sq M predicted among non-blacks MDRD (S/P/Bld) [Vol rate/Area] mL/min/{1.73_m2} Normal >=59 [facility] Comment on above: Order Comment: Order added by Discern Expert. 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 Kidney failure is indicated at less than 15 mL/min/1.73m2. Performed By: #### 2 695725, 1087579, [id number], 5849093, 81866942, 6910756, 76750121, 6441203, 8222661, 4030497, 64865974, 1878339 ####[facility] [address] [place] [address] Rapid COVID Antigen ([facility])on 04-23-2020 Rapid COVID Ag Detected Abnormal Not Detected [facility] Comment on above: Result Comment: The WebChaletitor? System for Rapid Detection of SARS-CoV-2 is a chromatographic digital immunoassay intended for the direct and qualitative detection of SARS-CoV-2 nucleocapsid antigens in nasal swabs from individuals who are suspected of COVID-19 by their healthcare provider within the first five days of the onset of symptoms. Negative results should be treated as presumptive, do not rule out SARS-CoV-2 infection and should not be used as the sole basis for treatment or patient management decisions, including infection control decisions. Negative results should be considered in the context of a patient?s recent exposures, history and the presence of clinical signs and symptoms consistent with COVID-19, and confirmed with a molecular assay, if necessary, for patient management. For in vitro diagnostic use. In the [place], only for use under an Emergency Use Authorization. In the [place], this test has not been FDA cleared or approved; this test has been authorized by FDA under an EUA for use by authorized laboratories; use by laboratories certified under the CLIA, 42 U.S.C. ?263a, that meet requirements to perform moderate, high, or waived complexity tests and at the Point of Care (POC), i.e., in patient care settings operating under a CLIA Certificate of Waiver, Certificate of Compliance, or Certificate of Accreditation. This test has been authorized only for the detection of proteins from SARS-CoV-2, not for any other viruses or pathogens; and, in the [place], this test is only authorized for the duration of the declaration that circumstances exist justifying the authorization of emergency use of in vitro diagnostics for detection and/or diagnosis of the virus that causes COVID-19 under Section 564(b)(1) of the Act, 21 U.S.C. ? 360bbb-3(b)(1), unless the authorization is terminated or revoked sooner. Results Called To ANGELIA VALDEZ By [facility] And Read Back For Confirmation On 04/23/2020 15:30:54 EST. FAXED TO Jc IRWIN. Performed By: #### 2 [id number] ####[address] [place] [address] Rapid COV Int NEG Ctl Pass Normal [facility] Comment on above: Performed By: #### 2 [id number] ####[address] [place] [address] Rapid COV Int POS Ctl Pass Normal [facility] Comment on above: Performed By: #### 2 [id number] ####[address] [facility] [place] [facility] [place] [address] Employed in Healthcare NO Normal [facility] Comment on above: Performed By: #### 2 [id number] ####[address] [facility] [place] [facility] [place] [address] First Test Unknown Normal [facility] Comment on above: Performed By: #### 2 [id number] ####[address] [facility] [place] [facility] [place] [address] Hospitalized? NO Normal [facility] Comment on above: Performed By: #### 2 [id number] ####[facility] [address] [place] [address] ICU NO Normal [facility] Comment on above: Performed By: #### 2 [id number] ####[facility] [address] [place] [address] ? NO Normal [facility] Comment on above: Performed By: #### 2 [id number] ####[facility] [address] [place] [address] Resides in a Congregate Care Setting NO Normal [facility] Comment on above: Performed By: #### 2 [id number] ####[facility] [address] [place] [address] Symptomatic as defined by CDC YES Normal [facility] Comment on above: Performed By: #### 2 [id number] ####[facility] [address] [place] [address] Family Medicine Phone Visit - Telehealthon 04-22-2020 Family Medicine Phone Visit - Telehealth Chief Complaint EST runny nose, headache, fever, chills, chest tightness HPI Staff Samara is a 40 year old female present via phone visit Symptoms started- yesterday afternoon Headache- yes Body aches-yes Earache- yes Runny/stuffy nose- yes Problem with Smell- no Problem with Taste-no Sore throat- yes Cough- yes little Scratchy tickly throat- yes Chest symptoms- tightness, rattle little MARIN- no Orthopnea- no Lung Hx asthma, bronchitis, chest colds- yes Fever/chills- 101.6 chills GI symptoms- no but loss of appetite COVID exposure-no History of Present Illness I have reviewed and verified the staff HPI to be accurate for this encounter. Patient presents for PARRISH, body aches, rhinorrhea, nasal congestion, sore throat, mild cough. Symptoms x 1 day. Fever 101.6 today. Has been using ibuprofen with moderate improvement. Denies covid exposure or sick contacts. 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 Review of Systems Fatigue: yes Body aches: yes Chills: yes Fever: yes PARRISH: yes Nasal congestion: yes Rhinorrhea: yes Cough: yes, productive at times, dry at times SOB: minimal Wheezing: yes, mild at times, has rescue inhaler, has not had to use much + chest tightness Sore throat: yes Ear pain: no, ear pressure present Ear drainage: no Loss of taste or smell: no Nausea: yes Vomiting: no Diarrhea: no + loss of appetite Current or former smoker: former Underlying health conditions: yes, HTN, allergic asthma Known Covid exposure: no Physical Exam Vitals & Measurements HT: 160 cm HT: 160.0 cm WT: 133.5 kg WT: 133.5 kg BMI: 52.15 Phone visit: Lungs: No conversational dyspnea, no audible wheezing, speaking in clear full sentences without issue Mental Status: Alert and oriented x3. Normal mood and affect Assessment/Plan 1. Morbid obesity with BMI of 50.0-59.9, adult (E66.01: Morbid (severe) obesity due to excess calories) The standard range for ages 18 and older is >=18.5 and < 25 kg/m2. Your BMI today was above this range, this falls in the overweight to obese category and there are medical benefits to weight loss. We can offer counselling, referral, and/or medical support in addressing this problem. Your BMI and weight management will be followed at subsequent visits. Ordered: Body Mass Index (BMI) documented 3008F 2. Symptoms of upper respiratory infection (URI) (R09.89: Other specified symptoms and signs involving the circulatory and respiratory systems) This visit was conducted via phone communications from my office due to the restrictions of the COVID-19 pandemic. No physical exam was conducted due to audio only communication with the patient located at [address] [place] [address] [address] [facility] [phone], with no one else. If it is determined that the patient should be evaluated in person, the patient will be directed to the appropriate clinic or venue. The patient or their guardian verbally consented to this visit. Phone time was 10 minutes discussing health issues with counseling and coordination of care. Influenza neg. Discussed differential of common cold vs covid. Will send for rapid COVID testing. Instructions given for testing at hospital. Advised needs to quarantine until results of test. Social distancing, good handwashing encouraged. May use OTC cold medications for symptomatic tx. ER if any severe worsening symptoms, shortness of breath. Patient verbalized understanding of tx plan. Hx of asthma, complaining for some SOB, mild. Will start on prednisone taper. Finish course. Ordered: Rapid COVID Antigen ([facility]) 3. Fever, (R50.9: Fever, unspecified)Fever see above plan. PRN tylenol/ibuprofen Ordered: Influenza Type A&B POC [address] Rapid COVID Antigen ([facility]) Orders: predniSONE, 20 mg = 1 tab(s), Oral, As Directed, take 2 tabs daily x4 days, then 1 tab daily x 4 days, X 10 day(s), # 12 tab(s), Refills(s) 0, Pharmacy: [facility] #[id number], 160, cm, 04/22/20 18:38:00 EST, Height/Length Dosing, 133.5, kg, 04/22/20 18:38:0... Follow-up With When Contact Information BACK MARS WALTON [address] [place] [address] [address] [place] [address]- Additional Instructions: Patient Education Obesity, Ekjt-xg-Voop Problem List/Past Medical History Ongoing Anxiety Asthma Headache Hypertension Morbid obesity with body mass index of 50 or higher Historical No qualifying data Procedure/Surgical History Endometrial ablation, None. Medications albuterol 0.083% Inh Darshana 3 mL, 2.5 mg= 3 mL, Inhalation amLODIPine 10 mg Tab, Oral, Daily atenolol 25 mg Tab, Oral, Daily busPIRone, 15 mg, Oral, TID cyclobenzaprine, Oral, Daily duloxetine 60 mg Cap-DR, 1 cap(s), Oral, Daily epinephrine 0.15 mg Inj kit, 150 mcg= 1 EA, IntraMuscular, As Directed, PRN, 1 refills, Not taking gabapentin 300 mg Cap, 300 mg= 1 cap(s), Oral, TID hydrochlorothiazide-l isinopril 12.5 mg-10 mg oral tablet, 1 tab(s), Oral, Daily, Not taking ibuprofen 800 mg Tab, Oral, BID pantoprazole 40 mg Oral EC Tab, 40 mg= 1 tab(s), Oral, Daily, Not taking predniSONE 20 mg Tab, 40 mg= 2 tab(s), Oral, Daily, Not taking predniSONE 20 mg Tab, 20 mg= 1 tab(s), Oral, As Directed Allergies lisinopril (Swelling of throat) Dust (Allergy test positive) Social History Alcohol Current, Wine, 1-2 times per year, 04/19/2019 Substance Abuse - Denies Substance Abuse, 04/19/2019 Tobacco Former smoker, quit more than 30 days ago, Quit smoking in 2013. Smoked 1 pack per day for 20 years Tobacco Use:. Never Smokeless Tobacco Use:., 04/22/2020 Former smoker, quit more than 30 days ago Tobacco Use:., 09/29/2019 Family History Acute myocardial infarction: Father and Brother. Anxiety: Negative: Sister. Drug dependency: Brother. Normal [facility] Comment on above: Result Comment: Elec tronically Signed By: ALINA CARRERA, Hector Kumar\.br\Date and Time Signed: 04/22/20 20:18 EST Patient Educationon 04-22-20 Patient Education Family Medicine Obesity Obesity is having too much body fat and a body mass index (BMI) of 30 or more. BMI is a number based on your height and weight. The number is an estimate of how much body fat you have. Obesity can happen if you eat more calories than you can burn by exercising or other activity. It can cause major health problems or emergencies. HOME CARE ? Exercise and be active as told by your doctor. Try: ? Using stairs when you can. ? Parking farther away from store doors. ? Gardening, biking, or walking. ? Eat healthy foods and drinks that are low in calories. Eat more fruits and vegetables. ? Limit fast food, sweets, and snack foods that are made with ingredients that are not natural (processed food ). ? Eat smaller amounts of food. ? Keep a journal and write down what you eat every day. Websites can help with this. ? Avoid drinking alcohol. Drink more water and drinks without calories. ? Take vitamins and dietary pills (supplements ) only as told by your doctor. ? Try going to weight-loss support groups or classes to help lessen stress. Dieticians and counselors may also help. GET HELP RIGHT AWAY IF: ? You have chest pain or tightness. ? You have trouble breathing or feel short of breath. ? You feel weak or have loss of feeling (numbness ) in your legs. ? You feel confused or have trouble talking. ? You have sudden changes in your vision. MAKE SURE YOU: ? Understand these instructions. ? Will watch your condition. ? Will get help right away if you are not doing well or get worse. Document Released: 07/03/2012 Document Reviewed: 07/03/2012 ExitCare? Patient Information ?2013 [employer]. [facility] XR LUMBAR SPINE (MIN 4 VIEWS )on 03-31-2020 XR LUMBAR SPINE (MIN 4 VIEWS) EXAM: XR LUMBAR SPINE (MIN 4 VIEWS) HISTORY: 40 years old Female with chronic lumbar back pain. PRIOR: None available at time of dictation. FINDINGS: There is no evidence for fracture or dislocation. There are moderate endplate degenerative changes with slight anterior osteophyte formation involving the lower thoracic and upper lumbar spine. At L2-L3 and L3-L4 there is endplate sclerosis and mild spurring anteriorly. Slight grade 1 retrolisthesis of L4 and L5 with posterior disc space narrowing and endplate sclerosis at this level. There is a slight rightward curvature centered at approximately L3. Slight right lateral bulky osteophyte formation at L3-L4 is noted likely secondary to these findings. L5-S1 facet joint arthropathy with sclerosis of the endplates and facet joints, as well as significant disc space height loss. No definite focal soft tissue abnormalities are identified. No definite radiopaque foreign bodies are identified. IMPRESSION: 1. No acute fracture or dislocation. 2. Moderate multilevel degenerative changes as described above. If clinically indicated consider correlation with cross-sectional imaging. Interpreted by: Zeyad Juarez DO Signed by: Zeyad Juarez DO 03/31/20 Final result [facility] 1. No acute fracture or dislocation. 2. Moderate multilevel degenerative changes as described above. If clinically indicated consider correlation with cross-sectional imaging. [facility], [place] EXAM: XR LUMBAR SPIN E (MIN 4 VIEWS) HISTORY: 40 years old Female with chronic lumbar back pain. PRIOR: None available at time of dictation. FINDINGS: There is no evidence for fracture or dislocation. There are moderate endplate degenerative changes with slight anterior osteophyte formation involving the lower thoracic and upper lumbar spine. At L2-L3 and L3-L4 there is endplate sclerosis and mild spurring anteriorly. Slight grade 1 retrolisthesis of L4 and L5 with posterior disc space narrowing and endplate sclerosis at this level. There is a slight rightward curvature centered at approximately L3. Slight right lateral bulky osteophyte formation at L3-L4 is noted likely secondary to these findings. L5-S1 facet joint arthropathy with sclerosis of the endplates and facet joints, as well as significant disc space height loss. No definite focal soft tissue abnormalities are identified. No definite radiopaque foreign bodies are identified. [place], [place] [facility], [facility] Incoming Radiant Results From [facility] - 03/31/2020 2:10 AM EST EXAM: XR LUMBAR SPINE (MIN 4 VIEWS) HISTORY: 40 years old Female with chronic lumbar back pain. PRIOR: None available at time of dictation. FINDINGS: There is no evidence for fracture or dislocation. There are moderate endplate degenerative changes with slight anterior osteophyte formation involving the lower thoracic and upper lumbar spine. At L2-L3 and L3-L4 there is endplate sclerosis and mild spurring anteriorly. Slight grade 1 retrolisthesis of L4 and L5 with posterior disc space narrowing and endplate sclerosis at this level. There is a slight rightward curvature centered at approximately L3. Slight right lateral bulky osteophyte formation at L3-L4 is noted likely secondary to these findings. L5-S1 facet joint arthropathy with sclerosis of the endplates and facet joints, as well as significant disc space height loss. No definite focal soft tissue abnormalities are identified. No definite radiopaque foreign bodies are identified. IMPRESSION: 1. No acute fracture or dislocation. 2. Moderate multilevel degenerative changes as described above. If clinically indicated consider correlation with cross-sectional imaging. [place], [place] Otheron 03-30-2020 1. No acute displace d fracture or dislocation of the left knee. 2. Medial compartment predominant tricompartmental osteoarthritis of the left knee with small left knee effusion. If there is clinical suspicion for internal derangement, a followup MRI may be performed for further evaluation. Hip minimum 3-4 views, bilateral, with pelvis CLINICAL: Knee and hip pain. IMPRESSION: 1. No acute osseous abnormality of the hips or bony pelvis. 2. Normal bilateral hip joint spaces. 3. Mild osteoarthritis of the pubic symphysis. [place], [place] Knee routine minimum 4 views, left CLINICAL: Left knee pain. No known injury. TECHNIQUE: 4 views left knee. FINDINGS: There are no prior exams for comparison. There is medial compartment predominant tricompartmental osteoarthritis of the left knee. There is no acute fracture or dislocation of the left knee. There is a small left knee effusion. TECHNIQUE: AP view of the pelvis and 2 views each hip. FINDINGS: There are no prior exams for comparison. There is no acute displaced fracture or dislocation of the hips or bony pelvis. Bilateral hip joint spaces are normal. There is mild osteoarthritis of the pubic symphysis. There is no decreased neural head-neck offset. [facility] [place] [facility] Incoming Radiant Results From [facility] - 03/30/2020 5:53 PM EST Knee routine minimum 4 views, left CLINICAL: Left knee pain. No known injury. TECHNIQUE: 4 views left knee. FINDINGS: There are no prior exams for comparison. There is medial compartment predominant tricompartmental osteoarthritis of the left knee. There is no acute fracture or dislocation of the left knee. There is a small left knee effusion. TECHNIQUE: AP view of the pelvis and 2 views each hip. FINDINGS: There are no prior exams for comparison. There is no acute displaced fracture or dislocation of the hips or bony pelvis. Bilateral hip joint spaces are normal. There is mild osteoarthritis of the pubic symphysis. There is no decreased neural head-neck offset. IMPRESSION: 1. No acute displaced fracture or dislocation of the left knee. 2. Medial compartment predominant tricompartmental osteoarthritis of the left knee with small left knee effusion. If there is clinical suspicion for internal derangement, a followup MRI may be performed for further evaluation. Hip minimum 3-4 views, bilateral, with pelvis CLINICAL: Knee and hip pain. IMPRESSION: 1. No acute osseous abnormality of the hips or bony pelvis. 2. Normal bilateral hip joint spaces. 3. [facility] oste[facility] of the [facility]physis[facility] W PELVIS BILAT ERALon 03-30-2020 XR HIP 3-4 VW W PELVIS BILATERAL Knee routine minimum 4 views, left CLINICAL: Left knee pain. No known injury. TECHNIQUE: 4 views left knee. FINDINGS: There are no prior exams for comparison. There is medial compartment predominant tricompartmental osteoarthritis of the left knee. There is no acute fracture or dislocation of the left knee. There is a small left knee effusion. TECHNIQUE: AP view of the pelvis and 2 views each hip. FINDINGS: There are no prior exams for comparison. There is no acute displaced fracture or dislocation of the hips or bony pelvis. Bilateral hip joint spaces are normal. There is mild osteoarthritis of the pubic symphysis. There is no decreased neural head-neck offset. IMPRESSION: 1. No acute displaced fracture or dislocation of the left knee. 2. Medial compartment predominant tricompartmental osteoarthritis of the left knee with small left knee effusion. If there is clinical suspicion for internal derangement, a followup MRI may be performed for further evaluation. Hip minimum 3-4 views, bilateral, with pelvis CLINICAL: Knee and hip pain. IMPRESSION: 1. No acute osseous abnormality of the hips or bony pelvis. 2. Normal bilateral hip joint spaces. 3. Mild osteoarthritis of the pubic symphysis. Interpreted by: Michael Flores MD Signed by: Michael Flores MD 03/30/20 Final result [facility] XR KNEE LEFT (MIN 4 VIEWS)on 03-30-2020 XR KNEE LEFT (MIN 4 VIEWS) Knee routine minimum 4 views, left CLINICAL: Left knee pain. No known injury. TECHNIQUE: 4 views left knee. FINDINGS: There are no prior exams for comparison. There is medial compartment predominant tricompartmental osteoarthritis of the left knee. There is no acute fracture or dislocation of the left knee. There is a small left knee effusion. TECHNIQUE: AP view of the pelvis and 2 views each hip. FINDINGS: There are no prior exams for comparison. There is no acute displaced fracture or dislocation of the hips or bony pelvis. Bilateral hip joint spaces are normal. There is mild osteoarthritis of the pubic symphysis. There is no decreased neural head-neck offset. IMPRESSION: 1. No acute displaced fracture or dislocation of the left knee. 2. Medial compartment predominant tricompartmental osteoarthritis of the left knee with small left knee effusion. If there is clinical suspicion for internal derangement, a followup MRI may be performed for further evaluation. Hip minimum 3-4 views, bilateral, with pelvis CLINICAL: Knee and hip pain. IMPRESSION: 1. No acute osseous abnormality of the hips or bony pelvis. 2. Normal bilateral hip joint spaces. 3. Mild osteoarthritis of the pubic symphysis. Interpreted by: Michael Flores MD Signed by: Michael Flores MD 03/30/20 Final result [facility] Coding Summary.on 10-02-2019 Coding Summary. CODING DATE: 10/02/2019 FINAL [facility] STATUS: Home (Routine DC) PAYOR: Commercial Insurance APC DESCRIPTION 5691 Level 1 Drug Administration 5693 Level 3 Drug Administration 5023 Level 3 Type A ED Visits ADMIT DX: REASON FOR VISIT DX: R07.0 Pain in throat R21 Rash and other nonspecific skin eruption FINAL DX: PRINCIPAL: T78.3XXA Angioneurotic edema, initial encounter SECONDARY: F41.9 Anxiety disorder, unspecified I10 Essential (primary) hypertension J45.909 Unspecified asthma, uncomplicated Z87.891 Personal history of nicotine dependence PYMT PROC APC STAT DESCRIPTION DOCTOR NAME DATE NOTE: The code number assigned matches the documented diagnosis and / or procedure in the patient's chart. However, the narrative phrase printed from the coding software may appear abbreviated, or result in slightly different terminology. Revised Coded By: Bety Littlejohn Revised Date Saved: 10/02/2019 01:42 pm [facility] Consent for Treatmenton Consent for Treatment [id number] .00CD:127 [facility] Discharge Instructionson Discharge Instructions [id number]# 1.00CD:127 [facility] ED Clinical Summaryon 2019 ED Clinical Summary [place] [id number] ED Clinical Summary Person Information Name: SAMARA GUERRA/[facility] Age: 39 Years : 1980 Sex: Female Language: Mohawk PCP: MARS SOW MD Marital Status: Single Phone: [phone] Visit Id: Visit Reason: Rash; Throat pain - Adult; SORE THROAT /NECK SWOLLEN Speciality: Acuity: 3 Enc Type: Emergency Med Service: Emergency Arrival: 09/29/2019 07:29:09 Discharge: 09/29/2019 11:24:43 LOS: 000 03:55 Checkin: 09/29/2019 07:29:09 Checkout: 09/29/2019 11:24:43 Dispo Type: Home (Routine DC) EVENTS: Event Name Event Status Request Date/Time Start Date/Time Complete Date/Time Arrive Complete 09/29/2019 07:29:09 09/29/2019 07:29:09 09/29/2019 07:29:09 Document Home Meds Request 09/29/2019 07:29:09 Triage Complete 09/29/2019 07:29:09 09/29/2019 07:36:55 09/29/2019 07:36:55 Bed Assign Complete 09/29/2019 07:32:08 09/29/2019 07:32:08 09/29/2019 07:32:08 Dr Exam Complete 09/29/2019 07:32:08 09/29/2019 07:33:17 09/29/2019 07:33:17 RN Exam Complete 09/29/2019 07:32:08 09/29/2019 07:46:04 09/29/2019 07:46:04 Registration Complete 09/29/2019 07:33:17 09/29/2019 07:51:13 09/29/2019 07:51:13 Meds Admin Request 09/29/2019 07:45:09 Patient Care Request 09/29/2019 07:45:09 RT Request 09/29/2019 07:45:09 Dr Exam Complete 09/29/2019 07:46:56 09/29/2019 07:46:56 09/29/2019 07:46:56 Reg Complete Request 09/29/2019 07:51:13 Reg Bed Request Complete 09/29/2019 07:51:13 09/29/2019 07:51:13 09/29/2019 07:51:13 Discharge Complete 09/29/2019 11:12:40 09/29/2019 11:24:49 09/29/2019 11:24:49 Transfer Complete 09/29/2019 11:24:50 09/29/2019 11:24:50 09/29/2019 11:24:50 ADDRESS: [address] [place] [phone] PHYS DOC NOTES: MEDICAL INFORMATION: Prescriptions Given: New Medications [id number], [address], [place] [phone], [phone] epinephrine (epinephrine 0.15 mg Inj kit) 1 Each Intramuscular As Directed as needed for anaphylaxis. Refills: 1. predniSONE (predniSONE 20 mg Tab) 2 Tablets By Mouth every day. Refills: 0. Medications to Continue with No Changes Other Medications albuterol (albuterol 0.083% Inh Darshana 3 mL) 3 Milliliter Inhalation. Q6H and PRN. busPIRone 15 Milligram By Mouth 3 times a day. cyclobenzaprine By Mouth every day. duloxetine (duloxetine 60 mg Cap-DR) 1 Capsules By Mouth every day. (do not crush or chew). gabapentin (gabapentin 300 mg Cap) 1 Capsules By Mouth 3 times a day. hydrochlorothiazide-l isinopril (hydrochlorothiazide- lisinopril 12.5 mg-10 mg oral tablet) 1 Tablets By Mouth every day. ibuprofen (ibuprofen 800 mg Tab) By Mouth 2 times a day. pantoprazole (pantoprazole 40 mg Oral EC Tab) 1 Tablets By Mouth every day. PATIENT EDUCATION INFORMATION: Instructions: Anaphylactic Reaction; Epinephrine Injection Follow up: With: Address: When: [facility] [address] [place] [address] [address] [place] [address] In 3 days DIAGNOSIS: 1:Angioedema due to angiotensin converting enzyme inhibitor (ROMMEL-I); 2:Facial swelling [facility] ED Note-Nursingon 09-29-2019 ED Note-Nursing Dr Jeffers in to re-assess and speak to pt. Offered pt admission, pt denies; states she is feeling better. Reports she will be around family. Sign/symptoms of worsening symptoms reviewed. To return for any increased difficulty breathing or any concerns. Pt able to tolerate oral fluids, no drooling. Edema improved to pharynx, redness improved to cheeks, chin. Denies itching or wheezing [facility] ED Note-Nursing Pt resting on cart with eyes closed, resp even, non-labored. Pt had reported improvement of itching and rash since medication administration [facility] ED Note-Physicianon 09-29-19 ED Note-Physician Basic Information Time Seen: Lola Jeffers DO 09/29/2019 07:33 Chief Complaint pt c/o throat pain, painful swallowing, and facial rash that started this morning. History of Present Illness Patient is a 39-year-old female who presents to the ER after waking at 6 AM this morning with swollen throat and neck. She does admit to some itchiness of her neck and cheeks. She denies any upper respiratory symptoms such as runny nose, she denies any shortness of breath or wheezing. Patient states that she had when she went to bed last night she felt completely normal. She denies any unusual meals or triggers that she can identify. She states only thing that was different she can think of was her BuSpar dose was increased from 10 to 15 mg last night. Patient has not taken any medications for this. Patient does state that she is prone to allergies and has asthma but she has never had an anaphylactic reaction to anything in the past. Patient states that currently she is not having any trouble breathing. Tongue and lips normal. No problems swallowing. She denies any other symptoms including chest pain, palpitations, nausea, vomiting, diarrhea, fever, chills. Review of Systems Constitutional-denies fevers 10 point review of systems is otherwise negative except as stated in the HPI. Physical Exam Vitals & Measurements T: 37.1 ?C (Tympanic) HR: 91(Monitored) RR: 18 BP: 132/79 SpO2: 97% HT: 160 cm WT: 133.5 kg BMI: 52.15 Patient wearing a cloth mask when entering the room. I do wear a N 95 mask and gloves. Constitutional-awake, alert, no acute distress HEENT-normocephalic, atraumatic, EOMI, vision grossly intact, hearing grossly intact, no thyromegaly, trachea midline, no cervical tenderness, moist mucous membranes, no oral lesions, voice normal, no drooling, moderate diffuse swelling and erythema of the anterior neck and jaw, mild swelling and some erythema of the uvula. CV-RRR, no murmurs, gallops or rubs Respiratory-CTAB, no wheezes, crackles or rhonchi. Neuro-no focal deficits noted Extremities-non tender, no edema, cyanosis or clubbing Medical Decision Making Patient with apparent allergic reaction with airway involvement. Currently she is breathing comfortably and vital signs are stable. Patient given IM epinephrine, IV Pepcid, IV steroids, IV Benadryl and fluids. We will continue to monitor closely. Patient also noted to be on lisinopril so angioedema is a strong possibility. Patient demonstrated significant improvement over the course of 3 to 4 hours. Did advise the patient to stop taking lisinopril immediately and to follow-up with her primary care doctor. Patient provided prescription for EpiPen, course of steroids and instructed to purchase OTC Benadryl. Did explain to the patient that if symptoms do not continue to improve or worsen that she should return to ER or call 911. Assessment/Plan 1. Angioedema due to angiotensin converting enzyme inhibitor (ROMMEL-I) (T78.3XXA: Angioneurotic edema, initial encounter) 2. Facial swelling (R22.0: Localized swelling, mass and lump, head) Medications Administered Given Sodium Chloride 0.9% IV Darshana 1000 mL 1,000 mL, 1000 mL, IV diphenhydrAMINE 50 mg/mL Inj, 25 mg, IV Push epinephrine 1 mg/mL Inj 1 mL, 0.3 mg, IntraMuscular famotidine 10 mg/mL IV Darshana, 20 mg, IV Push methylPREDNISolone 125 mg preservative-free injection (SOLU-MEDROL), 125 mg, IV Push Disposition Plan Patient Discharge Condition stable Discharge Disposition home Discharge Prescription List Prescriptions No active prescription medications Follow-up No qualifying data available Attestation I, Dr. Jeffers, personally saw and examined the patient. I have reviewed and agree with the resident?s findings including all diagnostic interpretations, and treatment plans as written. I was present for choi portions of any procedures performed and the inclusive time noted in any critical care statement. I personally examined the Pt at 810, 829, 847, 920 and just before discharge. Erythema to the cheeks and neck resolved, Pt states that her face and neck are no longer itchy. Uvula midline, improved swelling, entire posterior pharynx visualized, tongue and lips normal, voice normal, no drooling and breathing non-labored. Extensive conversation, at length, with Pt about things that she would need to return to the ED for. She is in agreement and she knows how to use an epi pen. She will hold her Lisinopril and call her PCP on Tuesday to discuss blood pressure medications. Problem List/Past Medical History Ongoing Anxiety Asthma Headache Hypertension Morbid obesity with body mass index of 50 or higher Historical No qualifying data Procedure/Surgical History None. Medications Inpatient Sodium Chloride 0.9% IV Darshana 1000 mL 1,000 mL, 1000 mL, IV Home albuterol 0.083% Inh Darshana 3 mL, 2.5 mg= 3 mL, Inhalation busPIRone, 15 mg, Oral, TID cyclobenzaprine, Oral, Daily duloxetine 60 mg Cap-DR, 1 cap(s), Oral, Daily gabapentin 300 mg Cap, 300 mg= 1 cap(s), Oral, TID hydrochlorothiazide-l isinopril 12.5 mg-10 mg oral tablet, 1 tab(s), Oral, Daily ibuprofen 800 mg Tab, Oral, BID pantoprazole 40 mg Oral EC Tab, 40 mg= 1 tab(s), Oral, Daily Allergies Dust (Allergy test positive) No Known Medication Allergies Social History Alcohol Current, Wine, 1-2 times per year, 04/19/2019 Substance Abuse - Denies Substance Abuse, 04/19/2019 Tobacco Former smoker, quit more than 30 days ago Tobacco Use:., 09/29/2019 Former smoker, quit more than 30 days ago, Quit smoking in 2013. Smoked 1 pack per day for 20 years Tobacco Use:. Never Smokeless Tobacco Use:., 04/19/2019 Family History Acute myocardial infarction: Father and Brother. Drug dependency: Brother. Lab Results No qualifying data available. Diagnostic Results No qualifying data available. [facility] Comment on above: Result Comment: Elec tronically Signed By: Ephraim Cruz\.br\Date and Time Signed: 09/29/19 11:03 EDT\.br\Electronically Co-Signed By: Lola Jeffers DO\.br\Date and Time Co-Signed: 09/29/19 11:28 EDT ED Patient Education Noteon 09-29-2019 ED Patient Education Note Anaphylactic Reaction An anaphylactic reaction is a sudden, severe allergic reaction that involves the whole body. It can be life threatening. A hospital stay is often required. People with asthma, eczema, or hay fever are slightly more likely to have an anaphylactic reaction. CAUSES An anaphylactic reaction may be caused by anything to which you are allergic. After being exposed to the allergic substance, your immune system becomes sensitized to it. When you are exposed to that allergic substance again, an allergic reaction can occur. Common causes of an anaphylactic reaction include: ? Medicines. ? Foods, especially peanuts, wheat, shellfish, milk, and eggs. ? Insect bites or stings. ? Blood products. ? Chemicals, such as dyes, latex, and contrast material used for imaging tests. SYMPTOMS When an allergic reaction occurs, the body releases histamine and other substances. These substances cause symptoms such as tightening of the airway. Symptoms often develop within seconds or minutes of exposure. Symptoms may include: ? Skin rash or hives. ? Itching. ? Chest tightness. ? Swelling of the eyes, tongue, or lips. ? Trouble breathing or swallowing. ? Lightheadedness or fainting. ? Anxiety or confusion. ? Stomach pains, vomiting, or diarrhea. ? Nasal congestion. ? A fast or irregular heartbeat (palpitations). DIAGNOSIS Diagnosis is based on your history of recent exposure to allergic substances, your symptoms, and a physical exam. Your caregiver may also perform blood or urine tests to confirm the diagnosis. TREATMENT Epinephrine medicine is the main treatment for an anaphylactic reaction. Other medicines that may be used for treatment include antihistamines, steroids, and albuterol. In severe cases, fluids and medicine to support blood pressure may be given through an intravenous line (IV). Even if you improve after treatment, you need to be observed to make sure your condition does not get worse. This may require a stay in the hospital. HOME CARE INSTRUCTIONS ? Wear a medical alert bracelet or necklace stating your allergy. ? You and your family must learn how to use an anaphylaxis kit or give an epinephrine injection to temporarily treat an emergency allergic reaction. Always carry your epinephrine injection or anaphylaxis kit with you. This can be lifesaving if you have a severe reaction. ? Do not drive or perform tasks after treatment until the medicines used to treat your reaction have worn off, or until your caregiver says it is okay. ? If you have hives or a rash: ? Take medicines as directed by your caregiver. ? You may use an ufjo-erj-xujepof antihistamine (diphenhydramine) as needed. ? Apply cold compresses to the skin or take baths in cool water. Avoid hot baths or showers. SEEK MEDICAL CARE IF: ? You develop symptoms of an allergic reaction to a new substance. Symptoms may start right away or minutes later. ? You develop a rash, hives, or itching. ? You develop new symptoms. SEEK IMMEDIATE MEDICAL CARE IF: ? You have swelling of the mouth, difficulty breathing, or wheezing. ? You have a tight feeling in your chest or throat. ? You develop hives, swelling, or itching all over your body. ? You develop severe vomiting or diarrhea. ? You feel faint or pass out. This is an emergency. Use your epinephrine injection or anaphylaxis kit as you have been instructed. Call your local emergency services (911 in [place] Even if you improve after the injection, you need to be examined at a hospital emergency department. MAKE SURE YOU: ? Understand these instructions. ? Will watch your condition. ? Will get help right away if you are not doing well or get worse. Document Released: 04/11/2006 Document Revised: 04/16/2014 Document Reviewed: 07/12/2012 ExitCare? Patient Information ?2015 [employer]. This information is not intended to replace advice given to you by your health care provider. Make sure you discuss any questions you have with your health care provider. Family Medicine Epinephrine Injection Epinephrine is a medicine given by injection to temporarily treat an emergency allergic reaction. It is also used to treat severe asthmatic attacks and other lung problems. The medicine helps to enlarge (dilate) the small breathing tubes of the lungs. A life-threatening, sudden allergic reaction that involves the whole body is called anaphylaxis. Because of potential side effects, epinephrine should only be used as directed by your caregiver. RISKS AND COMPLICATIONS Possible side effects of epinephrine injections include: ? Chest pain. ? Irregular or rapid heartbeat. ? Shortness of breath. ? Nausea. ? Vomiting. ? Abdominal pain or cramping. ? Sweating. ? Dizziness. ? Weakness. ? Headache. ? Nervousness. Report all side effects to your caregiver. HOW TO GIVE AN EPINEPHRINE INJECTION Give the epinephrine injection immediately when symptoms of a severe reaction begin. Inject the medicine into the outer thigh or any available, large muscle. Your caregiver can teach you how to do this. You do not need to remove any clothing. After the injection, call your local emergency services (911 in [place] Even if you improve after the injection, you need to be examined at a hospital emergency department. Epinephrine works quickly, but it also wears off quickly. Delayed reactions can occur. A delayed reaction may be as serious and dangerous as the initial reaction. HOME CARE INSTRUCTIONS ? Make sure you and your family know how to give an epinephrine injection. ? Use epinephrine injections as directed by your caregiver. Do not use this medicine more often or in larger doses than prescribed. ? Always carry your epinephrine injection or anaphylaxis kit with you. This can be lifesaving if you have a severe reaction. ? Store the medicine in a cool, dry place. If the medicine becomes discolored or cloudy, dispose of it properly and replace it with new medicine. ? Check the expiration date on your medicine. It may be unsafe to use medicines past their expiration date. ? Tell your caregiver about any other medicines you are taking. Some medicines can react badly with epinephrine. ? Tell your caregiver about any medical conditions you have, such as diabetes, high blood pressure (hypertension), heart disease, irregular heartbeats, or if you are . SEEK IMMEDIATE MEDICAL CARE IF: ? You have used an epinephrine injection. Call your local emergency services (911 in [place] Even if you improve after the injection, you need to be examined at a hospital emergency department to make sure your allergic reaction is under control. You will also be monitored for adverse effects from the medicine. ? You have chest pain. ? You have irregular or fast heartbeats. ? You have shortness of breath. ? You have severe headaches. ? You have severe nausea, vomiting, or abdominal cramps. ? You have severe pain, swelling, or redness in the area where you gave the injection. Document Released: 04/08/2001 Document Revised: 07/03/2012 Document Reviewed: 12/29/2011 ExitCare? Patient Information ?2015 [employer]. This information is not intended to replace advice given to you by your health care provider. Make sure you discuss any questions you have with your health care provider. 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 It is important that you follow up with a doctor, nurse practitioner, or physician?s retail assistant store manager for ongoing care. If your symptoms become worse or you do not improve as expected and you are unable to reach your usual health care provider, you should return to the Emergency Department. We are available 24 hours a day. SAMARA GUERRA has been given the following list of patient education materials, prescriptions and follow-up instructions: Follow-up Instructions: With: Address: When: MARS SOW MD [address] [place] [address] [address] [place] [address] In 3 days In the event that this physician does not participate in your insurance network, please consult with your insurance company to find a nearby participating provider. Patient Education Materials: Anaphylactic Reaction; Epinephrine Injection A MESSAGE TO ALL PATIENTS REGARDING OPIOIDS PRESCRIPTION OPIOIDS: WHAT YOU NEED TO KNOW Prescription opioids can be used to help relieve xbmxzpen-nj-jegstr pain and are often prescribed following a surgery or injury, or for certain health conditions. These medications can be an important part of the treatment but also come with serious risks. It is important to work with your healthcare provider to make sure you are getting the safest, most effective care. WHAT ARE THE RISKS AND SIDE EFFECTS OF OPIOID USE? Prescription opioids carry serious risks of addiction and overdose, especially with prolonged use. An opioid overdose, often marked by slowed breathing, can cause sudden . The use of prescription opioids can have a number of side effects as well, even when taken as directed: ? Tolerance?meaning you might need to take more of the medication for the same pain relief ? Physical dependence?meaning you have symptoms of withdrawal when a medication is stopped ? Increased sensitivity to pain ? Constipation ? Nausea, vomiting, and dry mouth ? Sleepiness and dizziness ? Confusion ? Depression ? Low levels of testosterone that can result in lower sex drive, energy, and strength ? Itching and sweating RISKS ARE GREATER WITH: ? History of drug misuse, substance use disorder, or overdose ? Mental health conditions (such as depression or anxiety) ? Sleep apnea ? Older age (65 years and older) ? Avoid alcohol while taking prescription opioids. Also, unless specifically advised by your health care provider, medications to avoid include: ? Benzodiazepines (such as Xanax or Valium) ? Muscle relaxants (such as Soma or Flexeril) ? Hypnotics (such as Ambien or Lunesta) ? Other prescription opioids KNOW YOUR OPTIONS Talk to your health care provider about ways to manage your pain that don?t involve prescription opioids. Some of these options may actually work better and have fewer risks and side effects. Options may include: ? Pain relievers such as acetaminophen, ibuprofen, and naproxen ? Some medication that are also used for depression or seizures ? Physical therapy and exercise ? Cognitive behavioral therapy, a psychological, goal-directed approach, in which patients learn how to modify physical, behavioral, and emotional triggers of pain and stress. IF YOU ARE PRESCRIBED OPIOIDS FOR PAIN: ? Never take opioids in greater amounts or more often than prescribed. ? Follow up with your primary health care provider. o Work together to create a plan on how to manage your pain. o Talk about ways to help manage your pain that don?t involve prescription opioids. o Talk about any and all concerns and side effects. ? Help prevent misuse and abuse o Never sell or share prescription opioids. o Never use another person?s prescription opioids. ? Store prescription opioids in a secure place and out of reach of others (this may include visitors, children, friends, and family). ? Safely dispose of unused prescription opioids: Find your community drug take-back program or your pharmacy mail-back program, or flush them down the toilet, following guidance from the Food and Drug Administration (www.fda.gov/Drugs/Re sourcesForYou). ? Visit www.cdc.gov/drugoverd ose to learn about the risks of opioids abuse and overdose. ? If you believe you may be struggling with addiction, tell your health healthcare business analyst and ask for guidance or call [facility]?S National Helpline at 6-536-732-NZUF. v Source: [place] Department of Health and Human Services/Center for Disease Control & Prevention [facility] Medications Given: Medication Dose Route Sodium Chloride 0.9% intravenous solution 1000.00 mL Initial Volume 30.00 mL/hr IV Right Hand diphenhydrAMINE 25.00 mg IV Push Right Hand famotidine 20.00 mg IV Push Right Hand methylPREDNISolone 125.00 mg IV Push Right Hand epinephrine 0.30 mg IntraMuscular Right Deltoid Medication Information: New Medications [id number], [address] [place], [place] [id number], [phone] epinephrine (epinephrine 0.15 mg Inj kit) 1 Each Intramuscular As Directed as needed for anaphylaxis. Refills: 1. predniSONE (predniSONE 20 mg Tab) 2 Tablets By Mouth every day. Refills: 0. Medications to Continue with No Changes Other Medications albuterol (albuterol 0.083% Inh Darshana 3 mL) 3 Milliliter Inhalation. Q6H and PRN. busPIRone 15 Milligram By Mouth 3 times a day. cyclobenzaprine By Mouth every day. duloxetine (duloxetine 60 mg Cap-DR) 1 Capsules By Mouth every day. (do not crush or chew). gabapentin (gabapentin 300 mg Cap) 1 Capsules By Mouth 3 times a day. hydrochlorothiazide-l isinopril (hydrochlorothiazide- lisinopril 12.5 mg-10 mg oral tablet) 1 Tablets By Mouth every day. ibuprofen (ibuprofen 800 mg Tab) By Mouth 2 times a day. pantoprazole (pantoprazole 40 mg Oral EC Tab) 1 Tablets By Mouth every day. Comment: Pharmacy Information: Srinivas Lepe Thank you for choosing [facility] Patient Education Materials: Anaphylactic Reaction An anaphylactic reaction is a sudden, severe allergic reaction that involves the whole body. It can be life threatening. A hospital stay is often required. People with asthma, eczema, or hay fever are slightly more likely to have an anaphylactic reaction. CAUSES An anaphylactic reaction may be caused by anything to which you are allergic. After being exposed to the allergic substance, your immune system becomes sensitized to it. When you are exposed to that allergic substance again, an allergic reaction can occur. Common causes of an anaphylactic reaction include: ? Medicines. ? Foods, especially peanuts, wheat, shellfish, milk, and eggs. ? Insect bites or stings. ? Blood products. ? Chemicals, such as dyes, latex, and contrast material used for imaging tests. SYMPTOMS When an allergic reaction occurs, the body releases histamine and other substances. These substances cause symptoms such as tightening of the airway. Symptoms often develop within seconds or minutes of exposure. Symptoms may include: ? Skin rash or hives. ? Itching. ? Chest tightness. ? Swelling of the eyes, tongue, or lips. ? Trouble breathing or swallowing. ? Lightheadedness or fainting. ? Anxiety or confusion. ? Stomach pains, vomiting, or diarrhea. ? Nasal congestion. ? A fast or irregular heartbeat (palpitations). DIAGNOSIS Diagnosis is based on your history of recent exposure to allergic substances, your symptoms, and a physical exam. Your caregiver may also perform blood or urine tests to confirm the diagnosis. TREATMENT Epinephrine medicine is the main treatment for an anaphylactic reaction. Other medicines that may be used for treatment include antihistamines, steroids, and albuterol. In severe cases, fluids and medicine to support blood pressure may be given through an intravenous line (IV). Even if you improve after treatment, you need to be observed to make sure your condition does not get worse. This may require a stay in the hospital. HOME CARE INSTRUCTIONS ? Wear a medical alert bracelet or necklace stating your allergy. ? You and your family must learn how to use an anaphylaxis kit or give an epinephrine injection to temporarily treat an emergency allergic reaction. Always carry your epinephrine injection or anaphylaxis kit with you. This can be lifesaving if you have a severe reaction. ? Do not drive or perform tasks after treatment until the medicines used to treat your reaction have worn off, or until your caregiver says it is okay. ? If you have hives or a rash: ? Take medicines as directed by your caregiver. ? You may use an fmgp-coa-imwpxeo antihistamine (diphenhydramine) as needed. ? Apply cold compresses to the skin or take baths in cool water. Avoid hot baths or showers. SEEK MEDICAL CARE IF: ? You develop symptoms of an allergic reaction to a new substance. Symptoms may start right away or minutes later. ? You develop a rash, hives, or itching. ? You develop new symptoms. SEEK IMMEDIATE MEDICAL CARE IF: ? You have swelling of the mouth, difficulty breathing, or wheezing. ? You have a tight feeling in your chest or throat. ? You develop hives, swelling, or itching all over your body. ? You develop severe vomiting or diarrhea. ? You feel faint or pass out. This is an emergency. Use your epinephrine injection or anaphylaxis kit as you have been instructed. Call your local emergency services (911 in [place] Even if you improve after the injection, you need to be examined at a hospital emergency department. MAKE SURE YOU: ? Understand these instructions. ? Will watch your condition. ? Will get help right away if you are not doing well or get worse. Document Released: 04/11/2006 Document Revised: 04/16/2014 Document Reviewed: 07/12/2012 ExitCare? Patient Information ?2015 [employer]. This information is not intended to replace advice given to you by your health care provider. Make sure you discuss any questions you have with your health care provider. Epinephrine Injection Epinephrine is a medicine given by injection to temporarily treat an emergency allergic reaction. It is also used to treat severe asthmatic attacks and other lung problems. The medicine helps to enlarge (dilate) the small breathing tubes of the lungs. A life-threatening, sudden allergic reaction that involves the whole body is called anaphylaxis. Because of potential side effects, epinephrine should only be used as directed by your caregiver. RISKS AND COMPLICATIONS Possible side effects of epinephrine injections include: ? Chest pain. ? Irregular or rapid heartbeat. ? Shortness of breath. ? Nausea. ? Vomiting. ? Abdominal pain or cramping. ? Sweating. ? Dizziness. ? Weakness. ? Headache. ? Nervousness. Report all side effects to your caregiver. HOW TO GIVE AN EPINEPHRINE INJECTION Give the epinephrine injection immediately when symptoms of a severe reaction begin. Inject the medicine into the outer thigh or any available, large muscle. Your caregiver can teach you how to do this. You do not need to remove any clothing. After the injection, call your local emergency services (911 in [place] Even if you improve after the injection, you need to be examined at a hospital emergency department. Epinephrine works quickly, but it also wears off quickly. Delayed reactions can occur. A delayed reaction may be as serious and dangerous as the initial reaction. HOME CARE INSTRUCTIONS ? Make sure you and your family know how to give an epinephrine injection. ? Use epinephrine injections as directed by your caregiver. Do not use this medicine more often or in larger doses than prescribed. ? Always carry your epinephrine injection or anaphylaxis kit with you. This can be lifesaving if you have a severe reaction. ? Store the medicine in a cool, dry place. If the medicine becomes discolored or cloudy, dispose of it properly and replace it with new medicine. ? Check the expiration date on your medicine. It may be unsafe to use medicines past their expiration date. ? Tell your caregiver about any other medicines you are taking. Some medicines can react badly with epinephrine. ? Tell your caregiver about any medical conditions you have, such as diabetes, high blood pressure (hypertension), heart disease, irregular heartbeats, or if you are . SEEK IMMEDIATE MEDICAL CARE IF: ? You have used an epinephrine injection. Call your local emergency services (911 in [place] Even if you improve after the injection, you need to be examined at a hospital emergency department to make sure your allergic reaction is under control. You will also be monitored for adverse effects from the medicine. ? You have chest pain. ? You have irregular or fast heartbeats. ? You have shortness of breath. ? You have severe headaches. ? You have severe nausea, vomiting, or abdominal cramps. ? You have severe pain, swelling, or redness in the area where you gave the injection. Document Released: 04/08/2001 Document Revised: 07/03/2012 Document Reviewed: 12/29/2011 ExitCare? Patient Information ?2014 [employer]. This information is not intended to replace advice given to you by your health care provider. Make sure you discuss any questions you have with your health care provider. CHARLIE Faith DIANE A , have received the following patient education materials/instruction s and have verbalized understanding: Patient Education Materials: Anaphylactic Reaction; Epinephrine Injection Follow-up Instructions: With: Address: When: BACK MARS WALTON [address] [place] [address] [address] [place] [phone] In 3 days Patient Signature Date Clinician/Nurse Signature Date 09/29/2019 11:24:51 Normal [facility] US SCREENING FOR AAAon 07-01 Normal abdominal aorta ultrasound. [place], [place] EXAM: US SCREENING FOR AAA REASON FOR EXAM: Family history of AAA in father. COMPARISON: None. TECHNIQUE: Abdominal aorta ultrasound, limited. FINDINGS: No aortic aneurysm. Proximal aorta 2.7 cm, mid aorta 2.5 cm, distal aorta 1.9 cm in diameter. The iliac arteries are normal 1.4 cm bilaterally. [place], [place] [facility], [facility] Incoming Radiant Results From [facility] - 07/02/2019 11:29 AM EDT EXAM: US SCREENING FOR AAA REASON FOR EXAM: Family history of AAA in father. COMPARISON: None. TECHNIQUE: Abdominal aorta ultrasound, limited. FINDINGS: No aortic aneurysm. Proximal aorta 2.7 cm, mid aorta 2.5 cm, distal aorta 1.9 cm in diameter. The iliac arteries are normal 1.4 cm bilaterally. IMPRESSION: Normal abdominal aorta ultrasound. [place], [place] Otolaryngology Office/Clinic Noteon 11-18-2016 Otolaryngology Office/Clinic Note History of Present Illness Patient is a 36-year-old woman who was last seen more than a month ago with nasal obstruction and a history of chronic sinus disease. She has been on 1 month of topical steroid spray with only minimal change in her nasal obstructive symptoms. Repeat CAT scan of her sinuses reveals persisting maxillary disease [facility] obstruction and anterior ethmoidal disease. These findings superimposed upon the fact that she has had at least 4 episodes of acute sinusitis a year for the last 2-3 years suggest that medical therapy is not working.Review of Systems Unchanged from prior visitPhysical Exam Nose: Septal deformity left with significant turbinate hypertrophy underlying erythema but no intranasal purulence. Lungs: [Clear to auscultation and percussion, non-labored respiration]. Heart: [Normal rate, regular rhythm, no murmur, gallop or edema]. Mental Status:[Alert and oriented x3]. Additional Vitals No qualifying data available.Assessment/ Plan 1. DNS (deviated nasal septum) 2. Chronic maxillary sinusitis 3. Chronic ethmoidal sinusitis Plan: I spoke with the patient at some length and in view of her persistent obstructive symptoms and history of recurring sinusitis for the last 3 years I feel that endoscopic surgery is and is indicated especially with persistent disease on CAT scan. I also would like to have her septum corrected in view of the fact that she continues to have persisting obstruction in spite of aggressive topical therapy. Rationale for surgery risks and benefits were discussed with the patient and her questions were answered. She is a candidate for outpatient surgeryProblem List/Past Medical History Ongoing Hypertension Irritable bowel Migraine Sinusitis Historical GERD - Gastro-esophageal reflux diseaseProcedure/Surg ical History NASAL ENDOSCOPY DX.Medications cyclobenzaprine 10 mg oral tablet, 10 mg, 1 tabs, Oral, TID, PRN gabapentin 300 mg oral capsule, 300 mg, 1 caps, Oral, TID lisinopril-hydrochlor othiazide 10mg-12.5mg oral tablet, 1 tabs, Oral, Daily pantoprazole 40 mg oral delayed release tablet, 40 mg, 1 tabs, Oral, Daily ProAir HFA 90 mcg/inh inhalation aerosol, 1 puffs, Inhale, Once, PRN sucralfate 1 g oral tablet, 1 g, 1 tabs, Oral, BIDAllergies No Known Medication AllergiesSocial History Alcohol Current, 1-2 times per month Substance Abuse Denies All Tobacco Former smoker, Cigarettes, 1 per day. Packs, 18 year(s).Family History Cancer: Father and Grandmother (M). Diabetes mellitus: Mother, Grandmother (M) and Sibling. Hypertension: Sibling. Tuberculosis: Grandmother (M).Diagnostic Results No qualifying data available. No qualifying data available. No qualifying data available. No qualifying data available.Electronica lly signed by Pancho Ellis MD 11/18/16 16:27 EDT Normal [facility] Vital Signs Date Time Vital Sign Value Performing Clinician Facility 09-11-2024 14:55-0400 Body height 160 cm [facility] [employer] Work Phone: [facility] 09-11-2024 14:55-0400 Body mass index (BMI) [Ratio] 52.61 kg/m2 Markus Gary DO Work Phone: [facility] 09-11-2024 14:55-0400 Body weight 134.72 kg [employer] DO Work Phone: [facility] 08-19-2024 12:01-0400 Body height 160.02 cm [facility] 08-19-2024 12:01-0400 Body mass index (BMI) [Ratio] 51.2 kg/m2 [facility] 08-19-2024 12:01-0400 Body temperature 97.3 [degF] [facility] 08-19-2024 12:01-0400 Body weight 131.34 kg [facility] 08-19-2024 12:01-0400 Diastolic blood pressure 89 mm[Hg] [facility] 08-19-2024 12:01-0400 Heart rate 74 /min [facility] 08-19-2024 12:01-0400 Respiratory rate 18 /min [facility] 08-19-2024 12:01-0400 SaO2% (BldA) [Mass fraction] 98 % [facility] 08-19-2024 12:01-0400 Systolic blood pressure 146 mm[Hg] [facility] 11-23-2023 15:36-0400 Body height 1920.24 cm [facility] 11-23-2023 15:36-0400 Body mass index (BMI) [Ratio] 0.3 kg/m2 [facility] 11-23-2023 15:36-0400 Body temperature 97.8 [degF] [facility] 11-23-2023 15:36-0400 Body weight 128.82 kg [facility] 11-23-2023 15:36-0400 Diastolic blood pressure 84 mm[Hg] [facility] 11-23-2023 15:36-0400 Heart rate 82 /min [facility] 11-23-2023 15:36-0400 Respiratory rate 18 /min [facility] 11-23-2023 15:36-0400 Systolic blood pressure 147 mm[Hg] [facility] 06-27-2023 12:11-0500 Body height 160 cm Tyler Quintana MD Work Phone: [employer] 06-27-2023 12:11-0500 Body mass index (BMI) [Ratio] 52.08 kg/m2 Tyler Quintana MD Work Phone: [employer] 06-27-2023 12:11-0500 Body weight 133.36 kg Tyler Quintana MD Work Phone: [employer] 04-30-2022 16:25-0500 Body height 160.02 cm Molly Frost Other [employer] Other 04-30-2022 16:25-0500 Body mass index (BMI) [Ratio] 49.59 kg/m2 Molly Frost Other [employer] Other 04-30-2022 16:25-0500 Body temperature 97.9 [degF] Molly Frost Other [employer] Other 04-30-2022 16:25-0500 Body weight 127.01 kg Molly Frost Other [employer] Other 04-30-2022 16:25-0500 Respiratory rate 18 /min Molly Frost Other [employer] Other 04-30-2022 16:25-0500 SaO2% (BldA) [Mass fraction] 99 % Molly Frost Other [employer] Other Encounters Encounter Date Encounter Type Care Provider Facility Start: 12-04-2024 End: 12-04-2024 Miryam Vega DO Work Phone: [facility] Start: 12-04-2024 End: 12-04-2024 Bamboo flowsheet Markus Gary DO Work Phone: [facility] Start: 12-04-2024 End: 12-04-2024 Clinisync Result Encounter Markus Gary DO Work Phone: [facility] Unsolicited Start: 11-23-2024 End: 11-23-2024 Clinisync Result Encounter Markus Gary DO Work Phone: [facility] Unsolicited Start: 11-23-2024 End: 11-23-2024 Clinisync Result Encounter Markus Gary DO Work Phone: [facility] Unsolicited Start: 11-22-2024 End: 11-22-2024 Clinisync Result Encounter Markus Gary DO Work Phone: [facility] Unsolicited Start: 11-22-2024 End: 11-22-2024 Clinisync Result Encounter Markus Gary DO Work Phone: [facility] Unsolicited Start: 09-11-2024 End: 09-11-2024 ambulatory MARKUS GARY Not Available Start: 09-11-2024 End: 09-11-2024 Office outpatient visit 15 minutes Markus Gary DO Work Phone: [facility] Comment on above: Pain of left breast; Encounter for screening mammogram for malignant neoplasm of breast; Pelvic pain in female Start: 09-11-2024 End: 09-11-2024 Bamboo flowsheet Markus Gary DO Work Phone: [facility] Start: 09-11-2024 End: 09-11-2024 Bamboo flowsheet Markus Gary DO Work Phone: [facility] Start: 08-19-2024 End: 08-19-2024 ambulatory [facility] Work Phone: Start: 08-19-2024 End: 08-19-2024 Patient encounter procedure [facility] Work Phone: Start: 11-23-2023 End: 11-23-2023 ambulatory [facility] Work Phone: Start: 11-23-2023 End: 11-23-2023 Patient encounter procedure [facility] Work Phone: Start: 08-21-2023 End: 08-22-2023 ambulatory MARS SOW [facility] Start: 08-21-2023 End: 08-21-2023 Subsequent hospital visit by physician Mars Sow MD Work Phone: [facility] Laboratory Comment on above: Pre-diabetes Start: 06-27-2023 End: 06-27-2023 Office outpatient visit 15 minutes Tyler Quintana MD Work Phone: [facility] General Surgery Comment on above: Incisional hernia, w ithout obstruction or gangrene (Primary Dx) Start: 09-21-2022 End: 09-22-[address] MARKUS VEGA . Facility:[facility] Start: 09-17-2022 End: 09-18-[address] MARKUS VEGA . Facility:[facility] Start: 08-09-2022 End: 08-09-[address] MARKUS VEGA . Facility:[facility] Start: 07-19-2022 End: 07-19-[address] PAM OLMSTEAD Facility:[facility] Start: 04-30-2022 End: 04-30-2022 ambulatory Molly Frost Other [employer] Other Start: 04-30-2022 Office outpatient ne w 20 minutes Molly Frost [facility] Start: 02-25-2021 End: 02-25-2021 Subsequent hospital visit by physician [facility] Cardiology Stress Room [facility] Stress Lab Comment on above: Arrived Start: 02-24-2021 End: 02-24-2021 Subsequent hospital visit by physician [facility] Cardiology Stress Room [facility] Stress Lab Comment on above: Chest pain, unspecif ied type; SOB (shortness of breath) Start: 02-04-2021 End: 02-04-2021 Subsequent hospital visit by physician Mars Sow MD Work Phone: [facility] Laboratory Comment on above: Essential hypertensi on; Chronic fatigue; Mild intermittent asthma without complication; Hypoxia; SOB (shortness of breath); Vitamin D deficiency; Encounter for lipid screening for cardiovascular disease Essential hypertensi on; Chronic fatigue; Mild intermittent asthma without complication; Hypoxia; SOB (shortness of breath) Start: 11-19-2020 End: 11-19-2020 Subsequent hospital visit by physician [facility] Pulmonary Function Room [facility] PFT Comment on above: Dyspnea on exertion; Chronic respiratory failure with hypoxia (HCC) Start: 11-07-2020 End: 11-09-2020 Subsequent hospital visit by physician [facility] Cat Scan Room [facility] CT Scan Comment on above: Chronic respiratory failure with hypoxia (HCC); History of 2019 novel coronavirus disease (COVID-19) Start: 10-02-2020 End: 10-02-2020 Subsequent hospital visit by physician [facility] Covid Screening Schedule [facility] Covid Screening Comment on above: Chronic respiratory failure with hypoxia (HCC) Start: 09-17-2020 End: 09-17-2020 Subsequent hospital visit by physician [facility] Pulmonary Function Room [facility] PFT Comment on above: Dyspnea on exertion; Mild persistent asthma without complication Start: 09-12-2020 End: 09-12-2020 Patient encounter status [facility] Schedule [facility] Covid Scre ening Start: 09-12-2020 End: 09-14-2020 Subsequent hospital visit by physician [facility] Covid Screening Schedule [facility] Laboratory Comment on above: Preoperative testing Dyspnea on exertion; Mild persistent asthma without complication; Chronic respiratory failure with hypoxia (HCC); Morbid obesity with BMI of 50.0-59.9, adult (HCC); KOJO (obstructive sleep apnea) Start: 09-08-2020 End: 09-08-2020 Subsequent hospital visit by physician [facility] Sleep Rm 1 [facility] Sleep Center Comment on above: KOJO (obstructive sle ep apnea) Start: 08-26-2020 End: 08-27-2020 ambulatory [facility] Start: 08-26-2020 End: 08-26-2020 ambulatory [facility] Start: 08-26-2020 End: 08-26-2020 Subsequent hospital visit by physician [facility] Pulmonary Function Rm [facility] PFT Comment on above: Shortness of breath Start: 03-30-2020 End: 04-02-2020 ambulatory [facility] Start: 03-30-2020 End: 04-01-2020 Subsequent hospital visit by physician [facility] Additional Xray At [facility] Radiology Comment on above: Hip pain, bilateral Chronic pain of left knee Chronic midline low back pain without sciatica Start: 07-02-2019 End: 07-04-2019 Subsequent hospital visit by physician [facility] Ultrasound Room [facility] Ultrasound Comment on above: Family history of ab dominal aortic aneurysm (AAA) Start: 11-18-2016 End: 11-19-2016 Ambulatory PANCHO ELLIS Facility[facility] Procedures Date Procedure Procedure Detail Performing Clinician Start: 12-04-2024 ALL [facility] Markus Fazi o DO Work Phone: Start: 11-23-2024 US PELVIS W/ TRANSVAGINAL Markus Gary DO Work Phone: Start: 11-22-2024 MM TOMOSYNTHESIS SCR EENING BI Markus Gary DO Work Phone: Start: 08-21-2023 Basic metabolic pane l calcium total Mars Juanjose WALTON Work Phone: Start: 02-04-2021 Comprehensive metabo lic panel Thien Castillo MD Work Phone: Start: 02-04-2021 Lipid panel Thien torres MD Work Phone: Start: 02-04-2021 Ecg routine ecg w/le ast 12 lds w/i&r Thien Castillo MD Work Phone: Start: 11-19-2020 Pulmonary stress testing Ian Hernandez MD Work Phone: Start: 11-07-2020 Ct thorax w/o contra st material Ian Hernandez MD Work Phone: Start: 09-17-2020 Brncdilat rspse spmt ry pre&post-brncdilat admn Ian Hernandez MD Work Phone: Start: 09-17-2020 MDI TREATMENT Mani conway MD Work Phone: Start: 09-12-2020 BLOOD GAS, ARTERIAL h seema Hernandez MD Work Phone: Start: 09-12-2020 Radiologic exam ches t 2 views Ian Hernandez MD Work Phone: Start: 08-26-2020 Pulmonary stress testing Mars Sow MD Work Phone: Start: 03-30-2020 Radex spine lumbosac ral minimum 4 views MARS BACK Start: 03-30-2020 Radiologic exam knee complete 4/more views Mars Back Work Phone: Start: 03-30-2020 Radex hips bilateral with pelvis 3-4 views Mars Back Work Phone: Start: 03-30-2020 Radex spine lumbosac ral minimum 4 views Mars Back Work Phone: Start: 07-02-2019 Us abdominal aorta r eal time screen study aaa Mars Back Work Phone: Plan of Treatment Date Care Activity Detail Author Start: 01-30-2030 Shingles Vaccine (1 of 2) Shingles Vaccine (1 of 2) [facility] [place] Start: 09-12-2027 Lipid panel Lipids [facility] Start: 02-04-2026 Lipid panel Lipid screen [facility] Work Phone: Start: 08-25-2025 Lipid panel Lipid screen [facility] Work Phone: Start: 02-27-2025 End: 02-27-2025 Patient encounter procedure 02/27/2025 3:40 PM EST Procedure Visit [facility] [address] [place] [address] Markus Vega, DO [address] [place] [address] [facility] Start: 02-26-2025 End: 02-26-2025 Professional / ancillary services management 02/26/2025 2:30 PM EST Ancillary Procedure [facility] [address] [place] [address] [facility] Start: 12-04-2024 End: 12-04-2024 Patient encounter procedure [facility] Start: 09-26-2024 End: 09-26-2024 Professional / ancillary services management 09/26/2024 2:30 PM EDT Ancillary Procedure [facility] [address] [place] [id number] [facility] Start: 09-11-2024 End: 11-11-2025 MG Breast - bilateral Screening Bilateral screening mammogram Imaging Routine Encounter for screening mammogram for malignant neoplasm of breast Expected: 09/11/2024 (Approximate), Expires: 11/11/2025 [facility] Work Phone: Comment on above: Expected: 09/11/2024 (Approximate), Expires: 11/11/2025 Start: 09-11-2024 End: 03-14-2025 US Pelvis US Pelvis w/ TV Imaging Routine Pelvic pain in female Expected: 09/11/2024, Expires: 03/14/2025 [facility] Comment on above: Expected: 09/11/2024 , Expires: 03/14/2025 Start: 08-20-2024 Hemoglobin A1c measurement A1C test (Diabetic or Prediabetic) [facility] [employer] Start: 06-26-2024 Adult BMI Screening [facility] Start: 06-26-2024 Tobacco Screening Tobacco Screening [facility] [employer] [facility] Start: 11-24-2023 Influenza vaccination Flu vacc ine (Season Ended) [facility] [employer] Start: 09-14-2023 Depression Monitoring Depression Mon it[facility] Start: 08-22-2023 End: 08-22-2023 Patient encounter procedure 08/22/2023 4:00 PM EDT Office Visit [place] [address] [place] [address] Mars Sow MD [address] [place] [address] Check up [facility] Comment on above: Check up Start: 03-04-2023 Lipid panel Lipid screen [place], [place] Start: 12-24-2022 Influenza vaccination Influenza Vacc ine [facility] Start: 02-04-2022 Creatinine measurement Creatinine mo [facility] [employer] Phone: Start: 02-04-2022 Potassium monitoring Potassium monit [facility] [employer] Phone: Start: 08-25-2021 Creatinine measurement Creatinine mo [facility] [employer] Phone: Start: 08-25-2021 Potassium monitoring Potassium monit [facility] [employer] Phone: Start: 03-24-2021 End: 03-24-2021 Patient encounter procedure 03/24/2021 Office Visit Family Medicine Mars Sow MD [address] [place] [address] [phone] [facility] Start: 02-26-2021 End: 02-26-2021 Patient encounter procedure 02/26/2021 Office Visit Pulmonology Ian Hernandez MD [facility] [address] [id number] [facility] OUTREACH PULM [facility] Start: 02-25-2021 End: 02-25-2021 Patient encounter procedure 02/25/2021 Appointment Stress Lab [facility] Stress [facility] Start: 02-11-2021 End: 02-11-2021 Patient encounter procedure 02/11/2021 Office Visit Cardiology Thien Castillo MD [address] [place] [address] [phone] [facility] [employer] Start: 12-25-2020 End: 12-25-2020 Patient encounter procedure 12/25/2020 Office Visit Mars Padilla MD [address] [place] [address] [phone] [facility] Start: 12-24-2020 Influenza vaccination Flu vaccine (# 1) [facility] Work Phone: Start: 11-27-2020 End: 11-27-2020 Patient encounter procedure 11/27/2020 Office Visit Pulmonology Ian Hernandez MD [address] [address] [phone] [facility] OUTREACH PUL Part [facility] Start: 11-19-2020 End: 11-19-2020 Patient encounter procedure 11/19/2020 Appointment Pulmonary Function Testing [facility] P[facility] Start: 10-09-2020 End: 10-09-2020 Patient encounter procedure 10/09/2020 Office Visit Pulmonology Ian Hernandez MD [address] [address] [phone] [facility] Start: 10-07-2020 End: 10-07-2020 Patient encounter procedure 10/07/2020 Appointment Sleep Center [facility] Start: 09-26-2020 End: 09-26-2020 Patient encounter procedure 09/26/2020 Office Visit Mars Padilla MD [address] [place] [address] [phone] [facility] Start: 09-17-2020 End: 09-17-2020 Patient encounter procedure 09/17/2020 Appointment Pulmonary Function Testing [facility] Start: 09-12-2020 End: 09-12-2020 Patient encounter procedure 09/12/2020 Appointment Lab [facility] Covid Screening Start: 08-28-2020 End: 08-28-2020 Patient encounter procedure 08/28/2020 Office Visit Pulmonology Ian Hernandez MD [address] [address] [phone] [facility] OUTREACH PUL [facility] Start: 06-26-2020 End: 06-26-2020 Office Visit 06/26/2020 Office Visit Family Medicine Mars Swo MD [address] [place] [address] [phone] [facility] Primary [facility] Start: 2020 Diabetes screen Diabetes screen [facility] [employer] Phone: Start: 12-17-2019 End: 12-17-2019 Office Visit 12/17/2019 Office Visit Family Medicine Mars Sow MD [address] [place] [address] [phone] [facility] Start: 03-04-2019 Creatinine measurement Creatinine mo nitoring [place], [place] Start: 03-04-2019 Creatinine monitoring Creatinine mon itoring [place] Start: 03-04-2019 Potassium monitoring Potassium monit oring [place] Start: 12-24-2018 Influenza vaccination Flu vaccine (# 1) [place] Start: 01-30-2010 Screening for malign ant neoplasm of cervix [facility] Start: 01-30-2001 Cervical cancer screen Cervical canc er screen [place] Start: 01-30-2001 Screening for malign ant neoplasm of cervix [facility] Start: 01-30-1999 DTaP,Tdap and Td Vaccines (1 - Tdap) DTaP,Tdap and Td Vaccines (1 - Tdap) [facility] Start: 01-30-1999 DTaP/Tdap/Td vaccine (1 - Tdap) DTaP/Tdap/Td vaccine (1 - Tdap) [facility] Start: 01-30-1998 Adult BMI Follow Up Plan Adult BMI Follow Up Plan [facility] Start: 01-30-1998 Hepatitis C screening Hepatitis C sc reen [facility] Start: 1996 COVID-19 Vaccine (1) COVID-19 Vaccin e (1) [facility] [employer] Work Phone: Start: 01-30-1995 HIV screen HIV screen [place], [place] Start: 01-30-1995 HIV screening HIV screen [facility] [employer] Start: 1992 COVID-19 Vaccine (1) COVID-19 Vaccin e (1) [facility] [employer] Phone: Start: 1992 Depression Screening Depression [facility] Start: 01-30-1986 Pneumococcal 0-64 ye ars Vaccine (1 of 1 - PPSV23) Pneumococcal 0-64 years Vaccine (1 of 1 - PPSV23) [place] Start: 01-30-1986 Pneumococcal 0-64 ye ars Vaccine (1 of 2 - PCV) Pneumococcal 0-64 years Vaccine (1 of 2 - PCV) [facility] Start: 01-30-1986 Pneumococcal 0-64 ye ars Vaccine (1 of 2 - PPSV23) Pneumococcal 0-64 years Vaccine (1 of 2 - PPSV23) [facility] [employer] Phone: Start: 01-30-1981 Varicella vaccine (1 of 2 - 2-dose childhood series) Varicella vaccine (1 of 2 - 2-dose childhood series) [facility] Start: 1980 COVID-19 Vaccine (#1) COVID-19 Vacci ne (#1) [facility] Start: 1980 Hepatitis B vaccine (1 of 3 - 3-dose series) Hepatitis B vaccine (1 of 3 - 3-dose series) [facility] Start: 1980 Hepatitis C screening Hepatitis C sc angela [facility] [employer] Phone: End: 09-08-2020 Baseline Diagnostic Sleep Study Baseline Diagnostic Sleep Study Sleep Center Routine KOJO (obstructive sleep apnea) 1 Occurrences starting 09/08/2020 until 09/08/2020 [facility] Phone: Comment on above: 1 Occurrences starti ng 09/08/2020 until 09/08/2020 End: 10-02-2020 Blood Gas, Arterial Blood Gas, Arterial Lab Routine Chronic respiratory failure with hypoxia (HCC) 1 Occurrences starting 10/02/2020 until 10/02/2020 [employer] Phone: Comment on above: 1 Occurrences starti ng 10/02/2020 until 10/02/2020 End: 09-12-2020 COVID-19 COVID-19 Lab Routine Preoperative testing 1 Occurrences starting 09/12/2020 until 09/12/2020 [employer] Phone: Comment on above: 1 Occurrences starti ng 09/12/2020 until 09/12/2020 COVID-19 [employer] Phone: End: 10-02-2020 COVID-19 COVID-19 Lab Routine Once for 1 Occurrences starting 10/02/2020 until 10/02/2020 [employer] Phone: Comment on above: Once for 1 Occurrenc es starting 10/02/2020 until 10/02/2020 Immunizations Immunization Date Immunization Notes Care Provider Fa [facility] 03-06-2020 influenza, injectabl e, quadrivalent, preservative free [place], [place] 03-06-2020 influenza virus vaccine, unspecified formulation Tyler Quintana MD Work Phone: [facility] 02-24-2020 influenza virus vaccine, unspecified formulation [facility] Work Phone: 02-09-2018 influenza, injectabl e, quadrivalent, preservative free [place] 03-24-2017 influenza, injectabl e, quadrivalent, preservative free [place] Payers Date Payer Category Payer [facility] [id number] 2016 Unknown 2015 Unknown [employer] xxxxxxxxx 2015-Present [phone] [address] [place] [address] xxxxxxxxx [id number] 2015 Unknown [id number] 1980 Unknown [id number] [id number]. 2.174 1980 Unknown [id number] [id number]. 2.174 1980 Unknown [id number] [id number]. 2.174 1980 Unknown [id number] [id number]. 2.174 1980 Unknown [id number] [id number]. 2.174 1980 Unknown [id number] [id number]. 2.174 1980 Unknown [id number] [id number]. 2.593 1980 Unknown [id number] [id number]. 2.593 1980 Unknown [id number] [id number]. 2.593 1980 Unknown [id number] [id number]. 2.593 1980 Unknown [id number] [id number]. 2.173 1980 Unknown [id number]. [id number] 1959 [facility] [id number] [id number] Social History Date Type Detail Facility Start: 06-19-2019 End: 10-02-2022 Tobacco smoking status NHIS Former smoker [place] End: 06-22-2013 History of tobacco use Current smoker [place] Start: 06-19-2019 End: 09-13-2022 Alcohol intake Current non-drinker of alcohol (finding) [place] Start: 05-03-2019 History SDOH Education 13 [place] Start: 05-03-2019 End: 09-26-2020 History SDOH Financial 3 [place] Start: 05-03-2019 End: 09-26-2020 History SDOH Food Worry 1 [place], [place] Start: 05-03-2019 History SDOH Transport Med 2 [place] Start: 1980 Sex Assigned At Not on file [place] Start: 03-06-2020 End: 03-08-2023 Tobacco use and exposure Never used [place], [place] Start: 1980 Sex Assigned At Female [facility] [employer] Work Phone: Exposure to SARS-CoV -2 (event) Not sure [facility] [employer] Start: 09-13-2022 End: 09-11-2024 Sex Assigned At [employer] Other End: 06-22-2013 History of tobacco use [facility] Start: 09-13-2022 End: 09-11-2024 History of Social function [facility] How hard is it for y ou to pay for the very basics like food, housing, medical care, and heating Not very hard [facility] Patient Health Questionnaire 9 item (PHQ-9) total score [Reported] 15 [facility] (I/We) worried wheth er (my/our) food would run out before (I/we) got money to buy more. Never true [facility] At any time in the p ast 12 months, were you homeless or living in residential [including now]? No [facility] Start: 08-27-2020 Gender identity Identifies as female gender (finding) [facility] Start: 08-27-2020 Sexual orientation Heterosexual (finding) [facility] Start: 06-27-2023 Alcohol intake Not Asked [facility] Start: 03-08-2023 Alcohol Comment rarely [facility] Start: 08-19-2024 Sex Female (finding) [facility] Start: 05-25-2023 End: 12-04-2024 Alcoholic beverage intake Current drinker of alcohol (finding) [facility] Start: 10-02-2022 Alcohol Comment Occasional drinker [facility] Clinical Notes 11-07-2020 to 09-11-2024 Mary Grace Gallagher LPN - 09/11/2024 2:20 PM Eva Quintana MD - 06/27/2023 12:00 PM EST Note Date & Type Note Facility 09-11-2024 History of Present illness Narrative Reason for Appointment: Patient ID: Samara Sullivan is a 44 y.o. female who presents for Breast Problem (Pt present today for Pulsating pain on top of left breast. Having this issue for almost 2 months now. ) Patient presents today for Acute Visit. MEDICATIONS Current Outpatient Medications Medication Instructions amLODIPine (NORVASC) 10 mg, Oral, Daily atenolol (Tenormin) 25 MG tablet 1 tablet, Oral, Daily busPIRone (Buspar) 15 MG tablet 1 tablet, Oral, 3 times daily cyclobenzaprine (FLEXERIL) 10 mg, Oral, 3 times daily PRN DULoxetine (CYMBALTA) 120 mg, Oral, Daily, Do not crush or chew. estradiol (ESTRACE) 1 mg, Oral, Every morning fluticasone (Flonase) 50 MCG/ACT nasal spray 1 spray, Each Nostril, Daily hydrOXYzine HCl (ATARAX) 25 mg, Oral, Every 8 hours PRN ibuprofen 800 MG tablet 1 tablet, Oral, 3 times daily metFORMIN XR (Glucophage-XR) 500 MG 24 hr tablet TAKE 1 TABLET IN THE EVENING. TAKE WITH MEALS. DO NOT CRUSH, CHEW OR SPLIT pantoprazole (PROTONIX) 40 mg, Oral, Daily before breakfast phentermine (ADIPEX-P) 37.5 mg, Oral, Daily before breakfast phentermine (ADIPEX-P) 37.5 mg, Oral, Daily before breakfast phentermine (ADIPEX-P) 37.5 mg, Oral, Daily before breakfast vitamin C 250 mg, Oral, Daily ALLERGIES Allergies Allergen Reactions Rommel Inhibitors Anaphylaxis, Rash and Swelling Angioedema Other Reaction(s): Swelling of throat Angioedema Back of throat could still breath Lisinopril Swelling and Anaphylaxis Back of throat could still breath Mite (D. Farinae) Shortness of breath Dust Mite Extract Molds & Smuts PROBLEMS Active Ambulatory Problems Diagnosis Date Noted No Active Ambulatory Problems Resolved Ambulatory Problems Diagnosis Date Noted No Resolved Ambulatory Problems Past Medical History: Diagnosis Date BMI 50.0-59.9, adult ([facility] Breast asymmetry Depression screening Encounter for well woman exam Menorrhagia Morbid obesity ([facility]) HISTORY PAST MEDICAL HISTORY SOCIAL HISTORY Past Medical History: Diagnosis Date BMI 50.0-59.9, adult ([facility]) Breast asymmetry Depression screening Encounter for well woman exam Menorrhagia Morbid obesity ([facility] MILL) Social History Tobacco Use Smoking status: Former Types: Cigarettes Smokeless tobacco: Not on file Substance Use Topics Alcohol use: Yes Comment: Occasional drinker Drug use: Never FAMILY HISTORY Family History Problem Relation Name Age of Onset Cancer Mother Diabetes Mother Heart disease Father Cancer Father Diabetes Brother Heart disease Brother Cancer Mother's Sister SURGICAL HISTORY Past Surgical History: Procedure Laterality Date CYSTOSCOPY 10/28/2022 ENDOMETRIAL ABLATION 03/2020 HM MAMMOGRAPHY 03/11/2020 negative PAP SMEAR 02/04/2021 negative SD SALPINGECTOMY COMPLETE/PARTIAL UNI/BI SPX Bilateral 03/2020 TOTAL ABDOMINAL HYSTERECTOMY W/ BILATERAL SALPINGOOPHORECTOMY 10/28/2022 VAGINAL DELIVERY REVIEW OF SYSTEMS Review of Systems: Review of Systems Constitutional: Negative. HENT: Negative. Eyes: Negative. Breasts: Positive for breast mass. Pulsating breast Respiratory: Negative. Cardiovascular: Negative. Gastrointestinal: Negative. Genitourinary: Negative. Musculoskeletal: Negative. Skin: Negative. Neurological: Negative. All other systems reviewed and are negative. Hematological: Negative. Endocrine: Negative. Allergic/Immunologic: Negative. OBJECTIVE Objective: Physical Exam Constitutional: Appearance: Normal appearance. She is well-developed. Cardiovascular: Rate and Rhythm: Normal rate and regular rhythm. Pulmonary: Effort: Pulmonary effort is normal. Breath sounds: Normal breath sounds. Abdominal: General: Bowel sounds are normal. There is no distension. Palpations: Abdomen is soft. Tenderness: There is no abdominal tenderness. There is no guarding or rebound. Musculoskeletal: General: No swelling. Normal range of motion. Right lower leg: No edema. Left lower leg: No edema. Neurological: Mental Status: She is alert and oriented to person, place, and time. Skin: General: Skin is warm and dry. Psychiatric: Mood and Affect: Mood normal. Behavior: Behavior normal. Vitals and nursing note reviewed. Exam conducted with a billboard poster helper present. Vitals: Estimated body mass index is 52.61 kg/m as calculated from the following: Height as of this encounter: 5' 3 . Weight as of this encounter: 297 lb. BP: No LMP recorded (lmp unknown). Patient has had a hysterectomy. ASSESSMENT & PLAN ICD-10-CM 1. Pain of left breast N64.4 Pt presents with pulsating left breast-pt advised to have mammogram obtained. Pt advised to apply vitamin e lotion, primrose oil and/or aspercreme. Breast exam performed by Dr Vega no lumps or bumps or masses noted. Pt has pelvic pain ultrasound given. Documented by Mary Grace Gallagher LPN on behalf of: Markus Vega DO documented in this encounter [facility] 06-27-2023 History of Present illness Narrative Chief Complaint: History of Present Illness: Samara Sullivan is a 43 y.o. female Who has known low abdominal ventral incisional hernia. She originally presented here for opinion about hernia repair several months ago. BMI at that time was between 52 and 53. I had a long discussion with her about weight in that she really needed to be at a BMI of 44 repair of this large hernia. I offered her a referral for bariatric surgery, however she stated that she was not interested in bariatric surgery. She has done dietary changes and is exercising. She has lost weight and her BMI is now around 50. Review of Systems Constitutional: Negative. Respiratory: Negative. Cardiovascular: Negative. Past Medical History: Diagnosis Date Arthritis Asthma Chronic fatigue GERD (gastroesophageal reflux disease) H/O degenerative disc disease H/O thoracic outlet syndrome History of endometriosis Hypertension IBS (irritable bowel syndrome) Ovarian cyst 4 MM LEFT OVARY Pneumonia due to COVID-19 virus Sinus disorder Past Surgical History: Procedure Laterality Date HYSTERECTOMY LASER ABLATION OF THE CERVIX Allergies Allergen Reactions Rommel Inhibitors Anaphylaxis, Rash and Swelling Other Reaction(s): Swelling of throat Angioedema Back of throat could still breath Lisinopril Anaphylaxis Current Outpatient Medications: albuterol-budesonide 90-80 mcg/actuation HFA aerosol inhaler, 1 puff(s), Inhalation, QID for wheezing, 18 gram, Refill(s) 0, Disp: , Rfl: amLODIPine (NORVASC) 10 mg tablet, Take 1 tablet (10 mg total) by mouth in the morning., Disp: , Rfl: ascorbic acid, vitamin C, (VITAMIN C) 250 mg tablet, Take 1 tablet (250 mg total) by mouth in the morning., Disp: , Rfl: atenoloL (TENORMIN) 25 mg tablet, Take 1 tablet (25 mg total) by mouth in the morning., Disp: , Rfl: baclofen (LIORESAL) 10 mg tablet, Take 1 tablet (10 mg total) by mouth as needed for muscle spasms., Disp: , Rfl: busPIRone (BUSPAR) 7.5 mg split tablet, Take 2 split tablet (15 mg total) by mouth in the morning and 2 split tablet (15 mg total) before bedtime., Disp: , Rfl: cholecalciferol, vitD3,/vit K2 (VITAMIN D3-VITAMIN K2 ORAL), Take by mouth., Disp: , Rfl: cyclobenzaprine (FLEXERIL) 10 mg tablet, Take 1 tablet (10 mg total) by mouth in the morning., Disp: , Rfl: DRESS,WSWQPZN-NYRH-JOJJSDS-CMC TOP, Apply topically., Disp: , Rfl: DULoxetine (CYMBALTA) 60 mg capsule, Take 2 capsules (120 mg total) by mouth in the morning., Disp: , Rfl: estradioL (ESTRACE) 0.5 mg tablet, Take 1 tablet (0.5 mg total) by mouth in the morning., Disp: , Rfl: blank primrose/linoleic/g-lenic (PRIMROSE OIL ORAL), Take by mouth., Disp: , Rfl: fluticasone propionate (FLONASE) 50 mcg/actuation nasal spray, 1 spray as needed., Disp: , Rfl: guaiFENesin (MUCINEX) 600 mg tablet extended release 12hr, Take 2 tablets (1,200 mg total) by mouth as needed., Disp: , Rfl: hydrOXYzine (ATARAX) 25 mg tablet, Take 1 tablet (25 mg total) by mouth as needed., Disp: , Rfl: ibuprofen (MOTRIN) 800 mg tablet, Take 1 tablet (800 mg total) by mouth in the morning and 1 tablet (800 mg total) before bedtime., Disp: , Rfl: iron,carb/vit C/vit B12/folic (IRON 100 PLUS ORAL), Take 20 mg by mouth., Disp: , Rfl: montelukast (SINGULAIR) 10 mg tablet, Take 1 tablet (10 mg total) by mouth nightly., Disp: , Rfl: gnjhthff-nstw-TW-calcium &mins (THERAGRAN-M) 9 mg iron-400 mcg tablet, Take 1 tablet by mouth in the morning., Disp: , Rfl: ondansetron (ZOFRAN) 4 mg tablet, Take 1 tablet (4 mg total) by mouth as needed., Disp: , Rfl: pantoprazole (PROTONIX) 40 mg EC tablet, Take 1 tablet (40 mg total) by mouth in the morning., Disp: , Rfl: psyllium (METAMUCIL) powder, Take 1 packet by mouth in the morning., Disp: , Rfl: Social History Socioeconomic History Marital status: Spouse name: Not on file Number of children: Not on file Years of education: Not on file Highest education level: Not on file Occupational History Not on file Tobacco Use Smoking status: Former Types: Cigarettes Quit date: 2013 Years since quittin.1 Smokeless tobacco: Never Vaping Use Vaping Use: Never used Substance and Sexual Activity Alcohol use: Not on file Comment: rarely Drug use: Yes Types: Marijuana Comment: occasional Sexual activity: Not on file Other Topics Concern Not on file Social History Narrative Not on file Social Determinants of Health Financial Resource Strain: Not on file Food Insecurity: No Food Insecurity (06/27/2023) Hunger Screening Food Insecurity - Worry: Never True Food Insecurity - Inability: Never True Transportation Needs: Not on file Physical Activity: Not on file Stress: Not on file Social Connections: Not on file Interpersonal Safety: Not on file Housing Instability: Not on file Family History Problem Relation Age of Onset Diabetes Mother Breast cancer Mother Lung cancer Father Leukemia Father Skin cancer Father Heart attack Father Heart attack Brother Lung cancer Maternal Uncle Cancer Maternal Grandmother Lymphoma Maternal Grandmother Physical Exam Constitutional: Appearance: Normal appearance. HENT: Head: Normocephalic and atraumatic. Pulmonary: Effort: Pulmonary effort is normal. No respiratory distress. Abdominal: General: There is no distension. Palpations: Abdomen is soft. Skin: General: Skin is warm and dry. Neurological: General: No focal deficit present. Mental Status: She is alert. Mental status is at baseline. Labs: No results found for: WBC , HGB , HCT , MCV , PLT Lab Results Component Value Date GLU 133 (H) 08/25/2020 CALCIUM 9.5 08/25/2020 K 3.9 08/25/2020 CO2 27 08/25/2020 CL 98 08/25/2020 BUN 12 08/25/2020 CREATININE 0.70 08/25/2020 No results found for: AMYLASE No results found for: LIPASE Lab Results Component Value Date ALT 21 08/25/2020 AST 18 08/25/2020 ALKPHOS 128 08/25/2020 No results found for: INR , PROTIME Assessment: Samara Sullivan is a 43 y.o.female with known incisional hernia, BMI down from 53 range to 50. Plan: I encouraged a continued weight loss program. I encouraged her to call our office for an appointment once her BMI gets closer to 40. I again discussed with her referral to bariatric surgery if she desired, but she wishes to proceed with her current diet and exercise plan Tyler Quintana MD FACS [facility] documented in this encounter [facility] 04-30-2022 Evaluation note Encounter Date Diagnosis Assessment Notes Apr, Acute sinusitis, recurrence not specified, unspecified location (ICD-10 - J01.90) Sinusitis home care material was printed Drink plenty fluids, get plenty of rest. Take the amoxicillin with clavulanate and prednisone as prescribed until gone. Use the fluticasone nasal inhaler as prescribed anterior symptoms improved. Follow-up with your family physician if no improvement in 2 to 3 days. [employer] Other 11-02-2021 History of Present illness Narrative* Elizabeth Tello RN - 02/24/2021 9:15 AM EDT Instructed patient on the benefit and protocol of a Cardiolite/Lexiscan stress test. [facility] Work Phone: [phone]) 592-199507-28-2021 History of Present illness Narrative* Gus Alford RCP - 11/19/2020 10:00 AM EDT RT Six Minute Walk Test Data Measured Before the Walk Heart Rate: 92 O2 Saturation: 98 O2 Device: Room air [place]kay Dyspnea Rate: Very, very slight (just noticeable) [place] Fatigue Scale: Moderate Data Measured During the Walk Heart Rate: 120 Blood Pressure: O2 Flow Rate: 0 l/min O2 Saturation: 92 Symptoms: Diaphoresis, Dizziness, Fatigue, SOB, Nausea, Tightness [place]kay Dyspnea Rate: 8 [place] Fatigue Scale: 8 Data Measured Immediately After Walk Did Patient Stop or Pause Before 6 Minutes: No Why Patient Stopped or Paused: Predicted Distance: Total Distance Walked: 2,000ft % Predicted: Heart Rate: 130 O2 Flow Rate: 0 l/min O2 Saturation: 97 [place]kay Dyspnea Rate: Somewhat severe [place] Fatigue Scale: Somewhat severe Data Measured 5 Minutes After Walk Heart Rate: 93 Blood Pressure: O2 Saturation: 98 (RA) Comments: Patient's SPO2 never dropped below 91% at rest or with activity while on room air. MARIN apparent, but never stopped to take any breaks while walking. Additional Comments: No longer qualifies for home O2. documented in this encounter[facility] Phone: [phone] 202-184507-16-2021 Note1. Pulmonary changes typically seen as sequela of long-term smoking, possibility of long-term sequela from COVID-19 is a consideration as well, or there may be a combination of underlying etiology. Bronchiolitis and sequela typical of COPD. 2. Anemia is possible given that the blood pool density ofthe heart is slightly lower than that of the myocardium. 3. Cardiomegaly. 4. Pulmonary artery enlargement which can be seen with pulmonary hypertension but is nonspecific. 5. Hepatic steatosis.[employer] Phone: evaluation note* Diagnosis Shortness of breath documented in this encounter [employer] Phone: evaluation note* Diagnosis KOJO (obstructive sleep apnea) Obstructive sleep apnea (adult) (pediatric) documented in this encounter [employer] Phone: evaluation note* Diagnosis Preoperative testing Preoperative examination, unspecified documented in this encounter [employer] Phone: evaluation note* Diagnosis Dyspnea on exertion Other dyspnea and respiratory abnormality Mild persistent asthma without complication Unspecified asthma Chronic respiratory failure with hypoxia (HCC) Chronic respiratory failure Morbid obesity with BMI of 50.0-59.9, adult (HCC) KOJO (obstructive sleep apnea) Obstructive sleep apnea (adult) (pediatric) documented in this encounter [employer] Phone: evaluation note* Diagnosis Dyspnea on exertion Other dyspnea and respiratory abnormality Mild persistent asthma without complication Unspecified asthma documented in this encounter [employer] Phone: evaluation note* Diagnosis Chronic respiratory failure with hypoxia (HCC) Chronic respiratory failure documented in this encounter [employer] Phone: evaluation note* Diagnosis Chronic respiratory failure with hypoxia (HCC) Chronic respiratory failure History of 2019 novel coronavirus disease (COVID-19) documented in this encounter [employer] Phone: evaluation note* Diagnosis Dyspnea on exertion Other dyspnea and respiratory abnormality Chronic respiratory failure with hypoxia (HCC) Chronic respiratory failure documented in this encounter [employer] Phone: [email or web address] note* Diagnosis Essential hypertension Unspecified essential hypertension Chronic fatigue Other malaise and fatigue Mild intermittent asthma without complication Unspecified asthma Hypoxia Hypoxemia SOB (shortness of breath) Shortness of breath Vitamin D deficiency Unspecified vitamin D deficiency Encounter for lipid screening for cardiovascular disease documented in this encounter [employer] Phone: evalyvrvel note* Diagnosis Essential hypertension Unspecified essential hypertension Chronic fatigue Other malaise and fatigue Mild intermittent asthma without complication Unspecified asthma Hypoxia Hypoxemia SOB (shortness of breath) Shortness of breath documented in this encounter [employer] Phone: [email or web address] note* Diagnosis Chest pain, unspecified type SOB (shortness of breath) Shortness of breath documented in this encounter [employer] Phone: [email or web address] note* Diagnosis Pre-diabetes Other abnormal glucose documented in this encounter [facility] VictivEvaluation noteNo assessment information available [facility] Work Phone: Evaluation note* Diagnosis Incisional hernia, without obstruction or gangrene- Primary documented in this encounter [employer] note* Diagnosis Onset Date Resolution Status Admit Date Acute frontal sinusitis, unspecified acute August 19, 2024 11:59am [facility] Work Phone: Evaluation note* Diagnosis Pain of left breast Encounter for screening mammogram for malignant neoplasm of breast Pelvic pain in female Unspecified symptom associated with female genital organs documented in this encounter [facility] Narrative - Reported* Type Description Date Medical History Gastroesophageal ref lux disease, esophagitis presence not specified Medical History Benign hypertension Medical History Seasonal allergic rhinitis, unsp ecified trigger Medical History Shoulder pain, unspecified chron icity, unspecified laterality [employer] Other InstructionsNot on filedocumented in this encounter [employer] Summary Purpose Family History Relationship Condition Age at Onset Recorded Date/T tristen brother Heart disease Unknown Unknown father Malignant neoplasm Unknown Family history of mental disorder Unknown Heart disease Unknown mother Malignant neoplasm Unknown Diabetes mellitus Unknown Malignant neoplasm of breast Unknown Advance Directives Documents on File Type Date 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 Advance Directives 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 Living Will Power of Entry Level Programmer Documents on File Type Date 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 ACP-Advance Directive ACP-Power of Entry Level Programmer Documents on File Type Date 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 ACP-Advance Directive ACP-Power of Entry Level Programmer Advance Directive Response Recorded Date/ Time Advance Directives No November 22 3:27pm Assessments Diagnosis Family history of abdominal aortic aneurysm (AAA) Diagnosis Hip pain, bilateral Pain in joint, pelvic region and thigh Diagnosis Chronic pain of left knee Pain in joint, lower leg Diagnosis Chronic midline low back pain without sciatica Hospital Course Note Admission Information Admit Date/Time:04/28/2020 13:50 Admitting Physician - CAITLIN WALTON, Isa Consulting Physician - David JAIME-Peggy Hospital Course Patient is a 40-year-old lady with a past medical history of asthma, hypertension, GERD, depression with anxiety, morbid obesity?presented to the ED on 04/28 with shortness of breath and cough-was admitted for COVID-19 pneumonia and hypoxic respiratory failure COVID-19 pneumonia and acute hypoxic respiratory failure?diagnosed with COVID-19 on 04/23/2020. Admitted to the hospital on 04/28/2020. Was started on high flow oxygen along with steroids, remdesivir, baricitinib, DVT prophylaxis, bronchodilators, mucolytic's. Inflammatory markers monitored closely. Was followed by pulmonology as well. She remained on high flow oxygen for approximately 8 days, after which she was slowly weaned to Oxymizer and subsequently to nasal cannula oxygen. Improved slowly. Today based on desaturation study?she is on room air at rest, requires 2 L nasal can (more content not included)... Reason for Referral Status Reason Specialty Diagnoses / Procedures Referre d By Contact Referred To Contact Open [facility] Shortness of breath Procedures 6 Minute Walk Test Mars Sow MD [address] [place] [address] Status Reason Specialty Diagnoses / Procedures Referred By Contact Referred To Contact [facility] Diagnoses KOJO (obstructive sleep apnea) Procedures Baseline Diagnostic Sleep Study Ian Hernandez MD [address] [facility] [address] [place] [address] Status Reason Specialty Diagnoses / Procedures Re ferred By Contact Referred To Contact [facility] Dyspnea on exertion Mild persistent asthma without complication Procedures Full PFT Study With Bronchodilator Ian Hernandez MD [address] [address] Status Reason Specialty Diagnoses / Procedures Referre d By Contact Referred To Contact Closed Radiology Diagnoses Chronic respiratory failure with hypoxia (HCC) History of 2019 novel coronavirus disease (COVID-19) Procedures CT CHEST WO CONTRAST Ian Hernandez MD [address] [place] [address] Status Reason Specialty Diagnoses / Procedures Referre d By Contact Referred To Contact [facility] Dyspnea on exertion Chronic respiratory failure with hypoxia (HCC) Procedures 6 Minute Walk Test Ian Hernandez MD [address] [address] Status Reason Specialty Diagnoses / Procedures Referre d By Contact Referred To Contact [facility] Cardiology Diagnoses Essential hypertension Chronic fatigue Mild intermittent asthma without complication Hypoxia SOB (shortness of breath) Procedures EKG 12 Lead Thien Castillo MD [address] [place] [id number] Status Reason Specialty Diagnoses / Procedures Referred By Contact Referred To Contact Authorized Cardiology Diagnoses Chest pain, unspecified type SOB (shortness of breath) Procedures Stress test, myoview Thien Castillo MD [address] [place] [address] Chief Complaint and Reason for Visit Chief Complaint rash on chest/arms Chief Complaint Admit Date Congestion August 19, 2024 11: 59am Reason for Visit Admit Date Acute frontal sinusitis, unspecified Apr 2024 11:59am Additional Source Comments INFORMATION SOURCE (unrecogn ized section and content) DATE CREATED AUTHOR 10/19/2017 [facility] DATE CREATED AUTHOR AUTHOR'S ORGANIZ ATION 07/26/2020 [facility] DATE CREATED AUTHOR AUTHOR'S ORGANIZ ATION 08/27/2020 [facility] DATE CREATED AUTHOR AUTHOR'S ORGANIZ ATION 10/01/2022 [facility] DATE CREATED AUTHOR AUTHOR'S ORGANIZ ATION 08/22/2023 [facility] DATE CREATED AUTHOR AUTHOR'S ORGANIZ ATION 09/13/2024 [facility] EPIC Reason for Visit (unrecogniz ed section and content) Status Reason Specialty Diagnoses / Procedures Referre d By Contact Referred To Contact Open Radiology Diagnoses Family history of abdominal aortic aneurysm (AAA) Procedures US SCREENING FOR AAA US ABDOMINAL AORTA LIMITED HC US ABDOMINAL LIMITED Mars Sow MD [address] [place] [address] [facility] [address] [place] [address] Status Reason Specialty Diagnoses / Procedures Referre d By Contact Referred To Contact Open Diagnoses Shortness of breath Procedures 6 Minute Walk Test Mars Sow MD [address] [place] [address] Status Reason Specialty Diagnoses / Procedures Referred By Contact Referred To Contact [facility] Diagnoses KOJO (obstructive sleep apnea) Procedures Baseline Diagnostic Sleep Study Ian Hernandez MD [address] [place] [address] Status Reason Specialty Diagnoses / Procedures Re ferred By Contact Referred To Contact Open Diagn[facility] Dyspnea on exertion Mild persistent asthma without complication Procedures Full PFT Study With Bronchodilator Ian Hernandez MD [address] [place] [id number] Status Reason Specialty Diagnoses / Procedures Referre d By Contact Referred To Contact Closed Radiology Diagnoses Chronic respiratory failure with hypoxia (HCC) History of 2019 novel coronavirus disease (COVID-19) Procedures CT CHEST WO CONTRAST Ian Hernandez MD [address] [place] [address] [place] [address] Status Reason Specialty Diagnoses / Procedures Referre d By Contact Referred To Contact Open Diagnoses Dyspnea on exertion Chronic respiratory failure with hypoxia (HCC) Procedures 6 Minute Walk Test Ian Hernandez MD [address] [facility] [address] [place] [address] Status Reason Specialty Diagnoses / Procedures Referred By Contact Referred To Contact Authorized Cardiology Diagnoses Chest pain, unspecified type SOB (shortness of breath) Procedures Stress test, Thien Colvin MD [address] [place] [address] Status Reason Specialty Diagnoses / Procedures Referre d By Contact Referred To Contact Closed Cardiology Diagnoses Chest pain, unspecified type SOB (shortness of breath) Procedures Stress test, Thien Colvin MD [address] [place] [address] Reason Comments Establish Care EST PT 3 MONTH F/U Reason Comments Breast Problem Pt present today for Pulsating pain on top of left breast. Having this issue for almost 2 months now. 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 [employer] Relationship Specialty Start Date End Date Mars Sow MD [address] [place] [address] PCP - General Internal Medicine 03/26/11 Team Status: Active Member Role Status Dates Mars Sow MD Primary Care Provider Active Team Status: Inactive Member Role Status Dates Mars Sow MD Primary Care Provider Active Sta rt: November 23, 2023 End: November 23, 2023 Rosario Gallardo APRN Attending Provider Active S tart: November 23, 2023 End: November 23, 2023 [employer]person [employer] Relationship Specialty Start Date End Date Mars Sow MD [address] [place] [id number] PCP - General Internal Medicine 09/13/16 Team Status: Inactive Member Role Status Dates Mars Sow MD Primary Care Provider Active Sta rt: August 19, 2024 End: August 19, 2024 Hector Walker APRN Attending Provider Active Start: August 19, 2024 End: August 19, 2024 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 [employer] Relationship Specialty Start Date End Date Back, MD John [address] [place] [address] PCP - General Family Medicine 10/05/22 [employer] Relationship Specialty Start Date End Date Back, MD John [address] [place] [address] PCP - General Family Medicine 10/05/22 [employer]person [employer] Relationship Specialty Start Date End Date Back, MD John [address] [place] [address] PCP - General Family Medicine 10/05/22 [employer]person [employer] Relationship Specialty Start Date End Date Back, MD John [address] [place] [address] PCP - General Family Medicine 10/05/22 Salesperson [employer] Relationship Specialty Start Date End Date Back, MD John [address] [place] [address] PCP - General Family Medicine 10/05/22 Goals (unrecognized section and content) Goals may be documented in a n alternate section FOR RECORDS PERTAINING TO PATIENTS WHO ARE OR HAVE BEEN ENROLLED IN A CHEMICAL DEPENDENCY/SUBSTANCEABUSE PROGRAM, SOME INFORMATION MAY BE OMITTED. This clinical summary was aggregated from multiple sources. Caution should be exercised in using it in the provision of clinical care. This summary normalizes information from multiple sources, and as a consequence, information in this document may materially change the coding, format and clinical context of patient data. In addition, data may be omitted in some cases. CLINICAL DECISIONS SHOULD BE BASED ON THE PRIMARY CLINICAL RECORDS. [employer] provides no warranty or guarantee of the accuracy or completeness of information in this document.
[2024-12-05 08:09] LABS: AFP, Serum, Tumor Marker 3.3 ng/mL (0.0-6.4); CEA 1.4 ng/mL (0.0-4.7)
== END 2024-12-04 14:47 | disposition home or self-care (01) ==
PROVIDERS: PCP Internal Medicine; Visit Provider Obstetrics & Gynecology
DX: N83.299 Other ovarian cyst, unspecified side (principal)
CPT/HCPCS: 36415; 82105; 82378; 83615; 84702; 86304

== ENCOUNTER 2025-04-10 21:11 | Outpatient (REF) | payer BC, SELFPAY ==
--- OUTSIDE RECORDS SUMMARY | 2025-04-05 19:51 | XMS_ITS | Continuity of Care Document ---
Author Organization [facility] Address [address] [place] [address] Phone Care Team Providers Care Patternmaker All Around Name Role Phone Mars Sow MD Primary Care Provider [phone] Teagan Singh APRN Attending Provider Lacy Walker APRN Attending Provider Care Teams Patient Care Team Team Status: Active Member Role/Relationship Status Yovana Sow MD Primary Care Provider Active Visit Care Team Team Status: Inactive Member Role/Relationship Status Yovana Sow MD Primary Care Provider Active Sta rt: March 15, 2025 End: March 15, 2025Teagan Singh APRN ASSET COORDINATOR-CAttending Provider ActiveStart: March 15, 2025 End: March 15, 2025 Visit Care Team Team Status: Inactive Member Role/Relationship Status NELSON Niño RN ASSET COORDINATOR-C Attending Provider Active Start: February End: March 15, 2025 Visit Care Team Team Status: Inactive Member Role/Relationship Status Yovana Walker APRN Attending Provider Active Start: April 05, 2025 End: April 05Trace Santamaria Care ProviderActiveStart: April 05, 2025 End: April 05, 2025 Visit Care Team Team Status: Inactive Member Role/Relationship Status Yovana Sow MD Primary Care Provider Active Sta rt: April 05, 2025 End: April 05, 2025Gabe Eduardo ProviderActiveStart: April 05, 2025 End: April 05, 2025 Chief Complaint and Reason for Visit Chief Complaint Admit Date Congestion, poss uti March 15, 2025 3:28pm r30.0 March 15, 2025 4:00pm Left foot wound April 05, 2025 12:33pm Reason for Visit Admit Date Acute frontal sinusitis, unspecified Nov emb2024 3:28pm Dysuria March 15, 2025 3:28pm Left foot pain April 05, 2025 12:33pm Reason for Referral Type Reason(s) Provider Provider Contact Information Nate lowe Address Start Date Left foot pain M79.672 - Pain in left footM79.672 - Pain in left footIsabel Morataya Phone: [phone] [address] [address] Allergies, Adverse Reactions, Alerts Allergen Type Severity Reaction Last Updated Verified Status lisinopril Allergy Unknown anaphylaxis April 05, 2025 12:40 pm Yes Active Social History Smoking Status Status Start Date End Date Date of Observa tion Ex-smoker (finding) April 05, 2025 12:42pm Observation Status Observation Response Date of Response Legal Sex Female (finding) [facility] 1979 Family History Relationship Condition Age at Onset Recorded Date/T tristen brother Heart disease Unknown DeceasedUnknownfatherMalignant neoplasmUnknownFamily history of mental disorder UnknownHeart diseaseUnknownDeceasedUnknownmotherMalignant neoplasmUnknown Diabetes mellitusUnknownMalignant neoplasm of breastUnknownDeceasedUnknown Problems Active Problems Problem Diagnosis/Recorded Date Onset Date Stat Acute frontal sinusitis, unspecified August 19, 2024 11:24am Unknown Active Sinusitis chronic, frontal November 23, 2023 2:33pm Unkn own Active Benign hypertension November 23, 2023 2:33pm Unknown Active Dermatitis November 23, 2023 3:19pm Unknown Activ e Rash November 23, 2023 3:19pm Unknown Activ e Rash and other nonspecific s kin eruption November 23, 2023 3:20pm Unknown Active Recurrent pansinusitis November 23, 2023 2:33pm Unknown Active Chronic shoulder pain November 23, 2023 2:33pm Unknown Active Left foot pain April 05, 2025 12:55pm Unknown Active GERD (gastroesophageal reflux disease) November 23, 2023 2:33pm Unknown Active Seasonal allergic rhinitis November 23, 2023 2:33pm Unkn own Active Medications Medication Status Dose Units Route Directions Qty Days Refills S tart Date Stop Date End Date Reason(s) Instructions Adherence Buspirone 15 mg tablet Discontinued 15 MG PO Elizabeth y November 22, 2023 11:00pmJuly 2023 2:39pmPantoprazole 40 mg tablet,delayed release (DR/EC)DiscontinuedMGPOly 2023 11:00pmApril 2024 11:06am Duloxetine 60 mg capsule,delayed release(DR/EC)DiscontinuedMG2023 11:00pmApril 2024 11:06amAmlodipine 10 mg jqwfunLmiafd92JQRYBdjruYvqz 30th, 2024 11:00pmUnknownAtenolol 25 mg gceyjtCuqcls62SCDDJnmguFpnz 2023 11:00pmUnknownMetformin 500 mg tablet extended release 24 hrDiscontinuedMGPONovember 22, 2023 11:00pmJuly 2023 2:39pmEstradiol 1 mg qxsiawNrfxzi8GADZOgxqf November 22, 2023 11:00pmUnknownMethylprednisolone (Medrol ([place])) 4 mg tablets,dose fzkaVvdotegwdhgo9AZuyb package dxvmqcuqra876Iirn 30th, 2024 11:00pm August 19, 2024 11:04amPO PER PKG DIRTriamcinolone Acetonide 0.1 % cream Vwbcyxmeguxc8SCQVOAZGFEDOFDpkkd mghsy737Jtqj2023 11:00pmApril 2024 11:04amapply a thin layer to the affected areas twice daily for 7 daysDuloxetine 60 mg capsule,delayed release(DR/EC)Kfanpp83ZBLXFifmtDyloq 2024 11:03am UnknownPantoprazole 40 mg tablet,delayed release (DR/EC)Isarmm40QXRTXhnrhCjwmq 2024 11:04amUnknownIbuprofen 800 mg qovervPwcool303FVOASheyw dailyApril 2024 11:00pmUnknownCyclobenzaprine 10 mg nvifbrCuovqx94WMJSLjlrj at bedtime as neededApril 2024 11:00pmUnknownAmoxicillin-Pot Clavulanate 875- 125 mg gmfyjkSamfqglucfmr2DKVELKvoiu 12 empyi8159Tkxfg 2024 11:00pm March 15, 2025 3:29pmAmoxicillin-Pot Clavulanate 875-125 mg tablet Kprbdesquvzi2ZPNCNDpswn 12 xncpq416PecjeutcMarch 15, 2025 12:00amDecember 2024 12:41pm Procedures Procedure Date Performed Status Urine Culture March 15, 2025 completed XR foot LT min 3V* April 05, 2025 12:00am c ompleted Relevant Diagnostic Tests and/or Laboratory Data Laboratory Results Test Collection Date/Time Result Date/Time Result Interpretation Reference Range Result Comment Performing Site Urine Color March 15, 2025 3:45pm March 15, 2025 3:56pm yellow Urine AppearanceMarch 15, 2025 3:45pmNov2024 3:56pmclearUrine Glucose (UA)March 15, 2025 3:45pmNov2024 3:56pmnegativeUrine BilirubinMarch 15, 2025 3:45pmNov2024 3:56pmnegativeUrine KetonesMarch 15, 2025 3:45pmNov2024 3:56pmnegativeUrine Specific GravityMarch 15, 2025 3:45pmNov2024 3:56pm1.010Urine Occult BloodMarch 15, 2025 3:45pmNov2024 3:56pm6.0Urine pH March 15, 2025 3:45pmNov2024 3:56pm6.0Urine ProteinMarch 15, 2025 3:45pmNov2024 3:56pmnegativeUrine UrobilinogenNov2024 3:45pmNov2024 3:56pm0.2Urine NitriteMarch 15, 2025 3:45pmNov2024 3:56pmNegativeUrine Leukocyte EsteraseNov2024 3:45pmNov2024 3:56pmnegative Microbiology Results Procedure Source Result Collection Date/Time Result Date/Time Result Comment Performing Site Urine Culture Urine 2 Days March 15, 2025 4: 00pm March 17, 2025 10:14am [facility] [id number] [address] [place] [address] Diagnostic Imaging Reports Author Juan Forbes [facility] Date/TimeDecember 2024 1:16pm [facility] [place] [address] [place] [address] XRay Report Signed Patient: Samara Omer MR#: [id number] : 1980 Acct:[id number] Age/Sex: 45 / F ADM Date: 5 Loc: XDUCLY Room: Type: [facility] Attending Dr: Lacy Walker APRN Copies to: Lacy Walker APRN~ Ordering Provider: Lacy Walker APRN Date of Service: 04/05/25 XR/XR foot LT min 3V*: LEFT FOOT POSSIBLE FB Left foot pain for 2 weeks. No injury. Fifth metatarsal pain. Adequate bony alignment without acute displaced fracture. Calcaneal spurring. Unremarkable soft tissues. XR/XR foot LT min 3V* IMPRESSION: No acute displaced fracture. Impression dictated by: Juan Forbes M.D. 04/05/2025 1:16 PM Dictation Location: [place] [address] Transcribed By: [facility] 04/05/25 1316 Dictated By: Juan Forbes DO 04/05/25 1312 Signed By: <Electronically signed by Juan Forbes DO in OV> 04/05/25 1316 Vital Signs Vital Reading Result Reference Range Collection Date/Time Height 63 [in_i] March 15, 2025 3:68bbNbcnui797.00 kgNov2024 3:38pmBody Kyjxhgddsnx72.6 [degF]97.6-99.0March 15, 2025 3:38pmHeart Rate84 /mqq34-656 March 15, 2025 3:38pmRespiratory rate18 /ybz23-94LacccjhmMarch 15, 2025 3:38pm Oxygen saturation by Pulse ntmkahnd63 %95-100March 15, 2025 3:38pmBP Yvvyjufi655 mm[Hg]100-140March 15, 2025 3:38pmBP Cwaazssih33 mm[Hg]60-100 March 15, 2025 3:38pmBMI (Body Mass Index)49.6 kg/w6IdbfttagMarch 15, 2025 3:40auQwjlax91 [in_i]April 05, 2025 12:88mhIdzppv208.14 kgDece2024 12:36pmBody Xaksixuvdyp03.5 [degF]97.6-99.0Deceer 2024 12:36pmHeart Rate72 /sph11-917DnvzzmziApril 05, 2025 12:36pmRespiratory rate18 /mac34-16 April 05, 2025 12:36pmOxygen saturation by Pulse fwfecwka12 %95-100De2024 12:36pmBP Xhhmkkmg162 mm[Hg]100-140Dece2024 12:36pmBP Vsvafgueh95 mm[Hg]60-100Decemb2024 12:36pmBMI (Body Mass Index)51.2 kg/w2MjyfaubwApril 05, 2025 12:36pm Advance Directives Advance Directive Response Recorded Date/ Time Advance Directives No November 22 2:27pm Insurance Providers Guarantor Samara Omer Address [address] [facility] [facility] [address]Gkjjefr Info.Home Phone: Payer Group Member ID Coverage Type Subscriber Relationship to Subscriber Effective Date Expiration Date Araceli SANCEHZ Id: [id number] A Slane Id: [id number] [address] [facility] [address] Home Phone: Email: [email or web address] Encounter Location(s) Arrival/Admit Date Discharge/Departure Date Discharge/Departure Disposition Provider(s) Departed Physician/ Provider Office Visit -[facility] [place] March 15, 2025 3:28pm March 15, 2025 4:01pm Discharged to home care or self care (routine discharge) Teagan Singh APRN Departed Referred -[facility] March 15, 2025 4:00pm March 15, 2025 4:01pm Discharged to home care or self care (routine discharge) Teagan Singh APRN Departed Physician/ Provider Office Visit -[facility] [place] April 05, 2025 12:33pm April 05, 2025 1:28pm Discharged to home care or self care (routine discharge) Stacy Barney APRN Departed Clinical -[facility] [place] April 05, 2025 12:54pm April 05, 2025 12:55pm Discharged to home care or self care (routine discharge) Stacy Barney APRN Recent Diagnosis Onset Date Admit Date Acute frontal sinusitis, unspecified Unknown March 15, 2025 3:28pm Dysuria Unknown March 15, 2 025 3:28pm Left foot pain Unknown April 05, 2 025 12:33pm Assessments Diagnosis Onset Date Resolution Status Admit Date Acute frontal sinusitis, unspecified acuteMarch 15, 2025 3:28pmDysurianoneactiveMarch 15, 2025 3:28pmLeft foot painacuteDecere[facility] 2024 12:33pm Plan of Treatment Author Teagan Singh [facility] 2024 4:04pmWill send urine for culture. Take antibiotics as prescribed, do not stop early. May take tylenol/motrin OTC prn for pain/fever. Increase oral intake of fluids to thin secretions. Saline nasal spray. May use throat lozenges and warm salt water gargles to alleviate sore throat. Humidified air. If symptoms do not improve in 48 hrs after starting antibiotics instructed patient to come to office for further evaluation. Author Lacy Walker [facility] 2024 1:36pmX-ray is negative for any acute findings. Did discuss that many types of foreign material may not show on x-ray. Given concern for possible previous puncture wound and increasing pain, will place referral to podiatry. Discussed may need ultrasound to rule out foreign body. Continue ibuprofen, Tylenol, elevation, loosefitting shoes. Patient will call to follow-up with podiatry. Verbalized understanding of treatment plan. Future Tests Future scheduled test information is unavailable Pending Tests Test Name Ordered Date Scheduled Date XR foot LT min 3V* April 05, 2025 12:55pm Future Visits Future appointment information is unavailable Future Procedures Future procedure information is unavailable Future Medications Future medication information is unavailable Patient Instructions Patient instructions are unavailable
--- OUTSIDE RECORDS SUMMARY | 2025-04-10 15:20 | XMS_ITS | Encounter Summary ---
Author Organization [facility] Address [address] [place] [address] Care Team Providers Care Unified Communications Engineer Name Role Phone John Sow MD Primary Care Provider [phone] Reason for Visit * ReasonCommentsWell Women Visit Encounter Details DateTypeDepartmentCare Team (Latest Contact Info)Dtjqtljewug23/17/2025 3:20 PM ESTProcedure Visit [facility] [address] [place] [address] Markus Vega DO [address] [place], [place] [phone] Well woman exam with routine gynecological exam; Breast cancer screening by mammogram; Symptomatic menopausal or female climacteric states; Hormone imbalance; Pelvic pain in female Social History Tobacco UseTypesPacks/DayYears UsedDateSmoking Tobacco: FormerCigarettesAlcohol UseStandard Drinks/WeekCommentsYes0 (1 standard drink = 0.6 oz pure alcohol) Occasional drinkerCommentsNoSex and Gender InformationValueDate Recorded Sex Assigned at AhmkhLryokf45/12/2023 11:42 AM EDTLegal QzvElfzwi30/15/2023 11:47 PM EDTGender HkcmxdsyObbrpp35/12/2023 11:42 AM EDTSexual Orientation Pynajjom44/12/2023 11:42 AM EDTdocumented as of this encounter Last Filed Vital Signs Vital SignReadingTime TakenCommentsBlood Uvorexxl709/7804/10/2025 4:02 PM EST Pulse--Temperature--Respiratory Rate--Oxygen Saturation--Inhaled Oxygen Concentration--Dwvucw720 kg (284 lb 1.9 oz)04/10/2025 4:02 PM ESTHeight--Body Mass Index50.3308 2:09 PM EDTdocumented in this encounter Plan of Treatment DateTypeDepartmentCare Team (Latest Contact Info)Splmpxyxqbi84/24/2026 1:00 PM ESTAncillary Procedure [facility] [address] [place] [address] [place] [phone] NameTypePriorityAssociated DiagnosesOrder ScheduleTHIN PREP TIS PAP AND HR HPV DNAPathology and CytologyRoutine Well woman exam with routine gynecological exam Ordered: 04/10/2025US Pelvis w/ TVImagingRoutine Pelvic pain in female Expected: 04/10/2025, Expires: 10/09/2025documented as of this encounter Visit Diagnoses Diagnosis Well woman exam with routine gynecological exam Routine gynecological examination Breast cancer screening by mammogram Symptomatic menopausal or female climacteric states Hormone imbalance Pelvic pain in female Unspecified symptom associated with female genital organs documented in this encounter Care Teams Team MemberRelationshipSpecialtyStart DateEnd Date Back, MD John [address] [place] [address] PCP - GeneralFamily Medicine10/05/22documented as of this encounter
--- OUTSIDE RECORDS SUMMARY | 2025-04-10 21:17 | XMS_ITS | Encounter Summary ---
Author Organization Heath Hurtado [facility] Address [address], [address] [place] [address] Care Team Providers Care Physician Practice Consultant Name Role Phone Mars Sow MD Primary Care Provider [phone] Encounter Details DateTypeDepartmentCare Team (Latest Contact Info)Ioheawdnrza76/12/2025bstract [facility] Primary Care [address] [phone] Mars Sow MD [address] [place] [address] Social History Tobacco UseTypesPacks/DayYears UsedDateSmoking Tobacco: JjejhrNrzoxajbes073Vdry: 06/22/2013Smokeless Tobacco: NeverAlcohol UseStandard Drinks/WeekCommentsNo0 (1 standard drink = 0.6 oz pure alcohol)[facility] UtilitiesAnswerDate RecordedIn the past 12 months has the electric, gas, oil, or water company threatened to shut off services in your home?No09/18/2024Overall Financial Resource Strain (CARDIA) AnswerDate RecordedHow hard is it for you to pay for the very basics like food, housing, medical care, and heating?Not hard at all03/08/2024HQ-2AnswerDate RecordedPHQ-9 Total Dwbgl246Hunger Vital SignAnswerDate RecordedWithin the past 12 months, you worried that your food would run out before you got the money to buymore.Never true09/18/2024Within the past 12 months, the food you bought just didn't last and you didn't have money to get more.Never true 09/18/2024PRAPARE - TransportationAnswerDate RecordedIn the past 12 months, has lack of transportation kept you from medical appointments or from getting medications?No09/18/2024In the past 12 months, has lack of transportation kept you from meetings, work, or from getting things needed for daily living?No 09/18/2024Housing Stability Vital SignAnswerDate RecordedUnable to Pay for Housing in the Last YearNot on file09/11/2022Number of Places Lived in the Last YearNot on file09/11/2022In the last 12 months, was there a time when you did not have a steady place to sleep or slept in [facility] (including now)?No 09/11/2022Housing Stability Vital SignAnswerDate RecordedIn the last 12 months, was there a time when you were not able to pay the mortgage or rent on time?No 09/18/2024In the past 12 months, how many times have you moved where you were living?t any time in the past 12 months, were you homeless or living in a prison (including now)?No09/18/2024Food InsecurityAnswerDate Recorded Within the past 12 months, you worried that your food would run out before you got the money to buymore.Within the past 12 months, the food you bought just didn't last and you didn't have money to get more. EducationAnswerDate RecordedWhat is the highest level of school you have completed or the highest degree you have received?High school liyxrsjg35/09/2020 CommentsNoSex and Gender InformationValueDate RecordedSex Assigned at UyrehNoapxf35/05/2021 11:08 AM EDTLegal QscTqawjz63/10/2013 11:46 AM ESTGender NedudsgyLbvfkb30/05/2021 11:08 AM EDTSexual KfqnimmhytcNvclreep48/05/2021 11:08 AM EDTOccupationIndustryJob Start DateJob End DateNot on fileNot on fileNot on fileNot on filedocumented as of this encounter Plan of Treatment DateTypeDepartmentCare Team (Latest Contact Info)Ybtftmbkudb30/20/2026 3:45 PM ESTOffice Visit [facility] [address] [place] [address] Mars Sow MD [address] [place] [address] check updocumented as of this encounter Visit Diagnoses Not on filedocumented in this encounter Care Teams Team MemberRelationshipSpecialtyStart DateEnd Date Mars Sow MD [address] [place] [address] PCP - GeneralInternal Osdgivqv52/2/11documented as of this encounter
--- OUTSIDE RECORDS SUMMARY | 2025-04-10 21:18 | XMS_ITS | Clinical Summary ---
Author Organization [facility] Address [address] [place] [address] Care Team Providers Care Medical Driver Name Role Phone BackJohn MD Primary Care Provider [phone] Allergies Active AllergyReactionsCriticalityNoted DateCommentsAce InhibitorsAnaphylaxis, Rash,EzvkupccRezi41/06/2020 Angioedema Other Reaction(s): Swelling of throat Angioedema Back of throat could still breath Dust Mite Efttjtx8906/26/2020isinoprilSwelling,UtbheolyhdnJwzk76/06/2020 Back of throat could still breath Mite (D. Farinae)Shortness of nuphsqGium44/11/2023Molds & Smuts06/26/2020 Medications MedicationSigDispense QuantityRefillsLast FilledStart DateEnd DateStatus amLODIPine (Norvasc) 10 MG tablet Take 10 mg by mouth in the morning.04/19/2022ctive atenolol (Tenormin) 25 MG tablet Take 1 tablet by mouth in the morning.09/23/2022ctive cyclobenzaprine (Flexeril) 10 MG tablet Take 10 mg by mouth 3 (three) times a day as needed.09/30/2022ctive pantoprazole (ProtoNix) 40 MG EC tablet Take 40 mg by mouth in the morning. Take before meals.03/09/2022ctive DULoxetine (Cymbalta) [address] capsule Take 120 mg by mouth in the morning. Do not crush or chew. .Active Ascorbic Acid (vitamin C) 250 MG tablet Take 250 mg by mouth in the morning.Active estradiol (Climara) 0.05 MG/24HR Indications:Symptomatic menopausal or female climacteric states,Hormone imbalancePlace 1 patch over 7 days on the skin 1 (one) time per week 12 patch ctive progesterone (Prometrium) 100 MG capsule Indications:Symptomatic menopausal or female climacteric states,Hormone imbalanceTake 1 capsule (100 mg) by mouth Daily 90 capsule /ctive estradiol (Estrace) 1 MG tablet Indications:Hormone imbalance,S/P hysterectomyTAKE 1 TABLET IN THE MORNING 90 tablet Discontinued(Therapy completed) estradiol (Climara) 0.05 MG/24HR Indications:Symptomatic menopausal or female climacteric statesPlace 1 patch over 7 days on the skin 1 (one) time per week 12 patch Discontinued(Other) progesterone (Prometrium) 100 MG capsule Indications:Symptomatic menopausal or female climacteric statesTake 1 capsule (100 mg) by mouth Daily 30 capsule 111Discontinued(Other) Encounters DateTypeDepartmentCare BbzdPawreouclpe75/17/2025 3:20 PM ESTProcedure Visit [facility] [address] [place] [address] Markus Vega DO Well woman exam with routine gynecological exam; Breast cancer screening by mammogram; Symptomatic menopausal or female climacteric states; Hormone imbalance; Pelvic pain in vponnu8804/10/2025Telephone [facility] [address] [facility] [place] [address] Mary Grace Glalagher LPN 04/10/2025amboo flowsheet [facility] [address] [facility] [place] [address] Markus Vega DO 02/27/2025amboo flowsheet [facility] [address] [facility] [place] [address] Markus Vega, 02/26/2025 2:30 PM ESTAncillary Procedure [facility] [address] [facility] [place] [phone] Pelvic pain in female; Complex ovarian cyst02/25/20257462Ewgeks12/12/2025Refill [facility] [address] [facility] [place] [phone] Markus Vega DO Hormone imbalance; S/P hysterectomyfrom Last 3 Months Family History Medical HistoryRelationNameCommentsDiabetesBrotherHeart diseaseBrotherCancer FatherHeart diseaseFatherCancerMotherDiabetesMotherCancerMother's Sister 1 AdsvgvesXioiEphyeeCdjlvkfcFpkeetf4BjzgwlCbljrwCgyerl's Sister 1Mother's Sister 2 AliveSonAlive1 Social History Tobacco UseTypesPacks/DayYears UsedDateSmoking Tobacco: FormerCigarettes Tobacco Cessation:Counseling Given: Not Answered Alcohol UseStandard Drinks/WeekCommentsYes0 (1 standard drink = 0.6 oz pure alcohol)Occasional drinkerCommentsNoSex and Gender InformationValueDate RecordedSex Assigned at JdsbvEwakqz29/12/2023 11:42 AM EDTLegal SexFemale 07/07/2022 11:47 PM EDTGender BowgnfkgZrkikf20/12/2023 11:42 AM EDTSexual VrvetgaaaevOjlfnwyi73/12/2023 11:42 AM EDT Last Filed Vital Signs Vital SignReadingTime TakenCommentsBlood Bcmdctsl283/7804/10/2025 4:02 PM EST Njoeo9786 2:10 PM ESTTemperature--Respiratory Rate--Oxygen Saturation-- Inhaled Oxygen Concentration--Errptn353 kg (284 lb 1.9 oz)04/10/2025 4:02 PM EST Cwzbds050 cm (5' 3 )12/04/2024 2:09 PM EDTBody Mass Index50.33012/04/2024 2:09 PM EDT Plan of Treatment DateTypeDepartmentCare Team (Latest Contact Info)Hfdqgdjbhmy56/24/2026 1:00 PM ESTAncillary Procedure [facility] [address] [place] [address] [place] [address] Procedures Procedure NamePriorityDate/TimeAssociated DiagnosisCommentsUS PELVIC COMPLETE W/ KJCwzpcjc20/04/2025 2:59 PM EST Pelvic pain in female Complex ovarian cyst from Last 3 Months Results * US Pelvis w/ TV (02/26/2025 2:59 PM EST)Anatomical RegionLateralityModality PelvisUltrasoundSpecimen (Source)Anatomical Location / LateralityCollection Method / VolumeCollection TimeReceived Time02/26/2025 3:07 PM EST Impressions 02/27/2025 7:01 AM EST Left ovarian findings possible benign neoplastic etiology, no ascites to suggest an aggressive ovarian lesion. If this is a new finding however MRI may be of assistance for further characterization. TRANSCRIBED BY: ? ELECTRONICALLY SIGNED BY: Fredo Witt MD Narrative 02/27/2025 7:01 AM EST FINDINGS: Uterus ? surgically absent Endometrium ??n/a Right Ovary ?3.1 x 3.6 x 1.9 cm Left Ovary ?5.3 x 4.0 x 3.8 cm Normal vaginal cuff. No pelvic fluid. Normal right ovary. Left ovarian enlargement, comprised of two structures, one ??of which is a simple cyst (3.0 x 2.6 x3.0 cm), the second is a heterogeneous partially cystic mass, 2.8 ??x 2.8 x 3.4 cm, nonshadowing, nonvascular. No neighboring fluid. Procedure Note Fredo Witt MD - 02/27/2025 FINDINGS: Uterus surgically absent Endometrium n/a Right Ovary 3.1 x 3.6 x 1.9 cm Left Ovary 5.3 x 4.0 x 3.8 cm Normal vaginal cuff. No pelvic fluid. Normal right ovary. Left ovarian enlargement, comprised of two structures, one of which is asimple cyst (3.0 x 2.6 x 3.0 cm), the second is a heterogeneous partiallycystic mass, 2.8 x 2.8 x 3.4 cm, nonshadowing, nonvascular. Noneighboring fluid. IMPRESSION: Left ovarian findings possible benign neoplastic etiology, no ascites tosuggest an aggressive ovarian lesion. If this is a new finding howeverMRI may be of assistance for further characterization. TRANSCRIBED BY: ELECTRONICALLY SIGNED BY: Fredo Witt MD Authorizing ProviderResult TypeResult StatusCorey Gary [facility] [place] PROCEDURESFinal Result from Last 3 Months Insurance Care Teams Team MemberRelationshipSpecialtyStart DateEnd Date Back, MD John [address] [place] [id number] PCP - GeneralFamily Medicine10/05/22
--- OUTSIDE RECORDS SUMMARY | 2025-04-10 21:18 | XMS_ITS | Encounter Summary ---
Author Organization [facility] Address [address] [place] [address] Care Team Providers Care Stonecutter Name Role Phone John Sow MD Primary Care Provider Encounter Details DateTypeDepartmentCare Team (Latest Contact Info)Zusjdmbkoec35/17/2025Telephone [facility] [address] [place] [address] [place] [address] Mary Grace Gallagher LPN Social History Tobacco UseTypesPacks/DayYears UsedDateSmoking Tobacco: FormerCigarettesAlcohol UseStandard Drinks/WeekCommentsYes0 (1 standard drink = 0.6 oz pure alcohol) Occasional drinkerCommentsNoSex and Gender InformationValueDate Recorded Sex Assigned at KyvrnOljyig37/12/2023 11:42 AM EDTLegal WoyKiowwi39/15/2023 11:47 PM EDTGender UlltkskdKjhepk34/12/2023 11:42 AM EDTSexual Orientation Lfpxxcfj47/12/2023 11:42 AM EDTdocumented as of this encounter Miscellaneous Notes * Telephone Encounter - Mary Grace Gallagher LPN - 04/10/2025 5:05 PM EST Please refer to urology for evaluation of incontinence documented in this encounter Plan of Treatment DateTypeDepartmentCare Team (Latest Contact Info)Vczywutvckj61/24/2026 1:00 PM ESTAncillary Procedure [facility] [address] [facility] [phone] documented as of this encounter Visit Diagnoses Not on filedocumented in this encounter Care Teams Team MemberRelationshipSpecialtyStart DateEnd Date Back, MD John [address] [place] [id number] PCP - GeneralFamily Medicine10/05/22documented as of this encounter
--- OUTSIDE RECORDS SUMMARY | 2025-04-10 21:18 | XMS_ITS | Clinical Summary ---
Author Organization [facility] Address [address], [address] [place] [address] Care Team Providers Care Educational Technologist Name Role Phone Back, Mars WALTON Primary Care Provider [phone] Allergies Active AllergyReactionsCriticalityNoted DateCommentsAce Ftdxkgbres38/08/2020 Angioedema Dust Mite Mpqhyxj3706/26/2020Molds & Smuts06/26/2020 Medications MedicationSigDispense QuantityRefillsLast FilledStart DateEnd DateStatus albuterol (PROVENTIL) (2.5 MG/3ML) 0.083% nebulizer solution Indications:SOB (shortness of breath)Take 3 mLs by nebulization every 4 hours as needed for Wheezing or Shortness of Breath 120 each ctive estradiol (ESTRACE) 1 MG tablet Take 1 tablet by mouth daily03/30/2023ctive Albuterol-Budesonide 90-80 MCG/ACT AERO 1 puff(s), Inhalation, QID for wheezing, 18 gram, Refill(s) ctive ascorbic acid (VITAMIN C) 250 MG tablet Take 1 tablet by mouth dailyActive Ferrous Sulfate (IRON PO) Take 1 tablet by mouth dailyActive fluticasone (FLONASE) 50 MCG/ACT nasal spray 08/18/2023ctive hydrOXYzine HCl (ATARAX) 25 MG tablet Take 1 tablet by mouth as gqhyjl0209/13/2022ctive montelukast (SINGULAIR) 10 MG tablet Take 1 tablet by mouth nightlyActive DULoxetine (CYMBALTA) 60 MG extended release capsule Indications:Depression with anxietyTake 2 capsules by mouth daily 180 capsule 5Active HYDROcodone-acetaminophen (NORCO) 5-325 MG per tablet Take 1 tablet by mouth every 6 hours as needed for Pain.5Active ibuprofen (ADVIL;MOTRIN) 800 MG tablet Indications:PolyarthralgiaTAKE 1 TABLET BY MOUTH EVERY 8 HOURS NEEDED FOR PAIN 270 tablet 5Active pantoprazole (PROTONIX) 40 MG tablet TAKE 1 TABLET BY MOUTH EVERY MORNING BEFORE BREAKFAST 90 tablet 5Active amLODIPine (NORVASC) 10 MG tablet Indications:Essential hypertensionTAKE 1 TABLET BY MOUTH DAILY 90 tablet 5Active atenolol (TENORMIN) 25 MG tablet Indications:Essential hypertensionTAKE 1 TABLET BY MOUTH DAILY 90 tablet 5Active cyclobenzaprine (FLEXERIL) 10 MG tablet Indications:Chronic right-sided thoracic back painTAKE 1 TABLET BY MOUTH TWICE DAILY NEEDED FOR MUSCLE SPASM(S) 180 tablet 5Active cyclobenzaprine (FLEXERIL) 10 MG tablet Indications:Chronic right-sided thoracic back painTake 1 tablet by mouth 2 times daily as needed for Muscle spasms 180 tablet Discontinued Active Problems ProblemNoted DateDiagnosed DatePre-gvoergcd43/22/2023 Assessment & Plan (03/08/2024 4:27 PM EST): Will check a HgbA1C. Continue to watch sweets / carbs in the diet. Orders: Comprehensive Metabolic Panel; Future Hemoglobin A1C; Future nirmatrelvir/ritonavir 300/100 (PAXLOVID, 300/100,) 20 x 150 MG & 10 x 100MG TBPK; Take 3 tablets (two 150 mg nirmatrelvir and one 100 mg ritonavir tablets) by mouth every 12 hours for 5 days. Emogtar9306/26/2020Mild intermittent asthma without ksacbfsolyjm93/04/2021 Assessment & Plan (03/08/2024 4:27 PM EST): Stable on Singulair and Proventil as needed. Orders: nirmatrelvir/ritonavir 300/100 (PAXLOVID, 300/100,) 20 x 150 MG & 10 x 100MG TBPK; Take 3 tablets (two 150 mg nirmatrelvir and one 100 mg ritonavir tablets) by mouth every 12 hours for 5 days. Depression with bqfadys7406/19/2019 Assessment & Plan (03/08/2024 4:27 PM EST): Continues on Cymbalta. Is seeking out a Psychiatrist at this time. She would also like treatment for ADHD. Peripheral dxfqgtfzlo24/25/2020Gastroesophageal reflux disease without wlsaceryavq53/30/2017Essential hmekvrcqxosq47/30/2017 Assessment & Plan (03/08/2024 4:27 PM EST): Controlled on Amlodipine and Tenormin. No change in dose. Orders: Comprehensive Metabolic Panel; Future Chronic ncdxadz0105/07/2013IBS (irritable bowel syndrome)10/12/2011 Encounters DateTypeDepartmentCare LmtcFucomqbcxvx49/12/2025bstract [facility] Primary [address] [address] Mars Sow MD 03/25/[address] [address] Mars Sow MD Medication Refillfrom Last 3 Months Immunizations ImmunizationAdministration DatesNext DueInfluenza Virus Uvrommj6702/24/2020 Influenza, FLUARIX, FLULAVAL, FLUZONE (age 6 mo+) and AFLURIA, (age 3 y+), Quadv PF, 0.5mL03/06/2020,02/09/2018,03/24/2017 Family History Medical HistoryRelationNameCommentsHeart DiseaseBrotherDavidSubstance Abuse BrotherDavidAlzheimer's DiseaseFatherDadHeart DiseaseFatherDadCancerMotherMom DiabetesMotherMomParkinson's DiseaseMotherMomRelationNameStatusCommentsBrother DavidFatherDadAliveMotherMomAlive Social History Tobacco UseTypesPacks/DayYears UsedDateSmoking Tobacco: CpsdrtQeqzbaabla382Gkmf: 06/22/2013Smokeless Tobacco: Never Tobacco Cessation:Counseling Given: Not Answered Alcohol UseStandard Drinks/WeekCommentsNo0 (1 standard drink = 0.6 oz pure alcohol)[facility] UtilitiesAnswerDate RecordedIn the past 12 months has the electric, gas, oil, or water company threatened to shut off services in your home?No 09/18/2024Overall Financial Resource Strain (CARDIA)AnswerDate RecordedHow hard is it for you to pay for the very basics like food, housing, medical care, and heating?Not hard at all03/08/2024HQ-2AnswerDate RecordedPHQ-9 Total Score0 09/18/2024Hunger Vital SignAnswerDate RecordedWithin the past 12 months, you worried that your food would run out before you got the money to buymore.Never true09/18/2024Within the past 12 months, the food you bought just didn't last and you didn't have money to get more.Never true09/18/2024PRAPARE - TransportationAnswerDate RecordedIn the past 12 months, has lack of transportation kept you from medical appointments or from getting medications?No 09/18/2024In the past 12 months, has lack of transportation kept you from meetings, work, or from getting things needed for daily living?No09/18/2024 Housing Stability Vital SignAnswerDate RecordedUnable to Pay for Housing in the Last YearNot on file09/11/2022Number of Places Lived in the Last YearNot on file 09/11/2022In the last 12 months, was there a time when you did not have a steady place to sleep or slept in [place] (including now)?No09/11/2022Housing Stability Vital SignAnswerDate RecordedIn the last 12 months, was there a time when you were not able to pay the mortgage or rent on time?No09/18/2024In the past 12 months, how many times have you moved where you were living? At any time in the past 12 months, were you homeless or living in a senior living (including now)?No09/18/2024Food InsecurityAnswerDate RecordedWithin the past 12 months, you worried that your food would run out before you got the money to buy more.Within the past 12 months, the food you bought just didn't last and you didn't have money to get more.EducationAnswerDate Recorded What is the highest level of school you have completed or the highest degree you have received?High school jmurklow74/09/2020CommentsNoSex and Gender InformationValueDate RecordedSex Assigned at ZtniuBxblac78/05/2021 11:08 AM EDT Legal YajAfokgh81/10/2013 11:46 AM ESTGender RcpvzzsrQnjcns52/05/2021 11:08 AM EDTSexual EqythxnpoapPdrmgepc15/05/2021 11:08 AM EDTOccupationIndustryJob Start DateJob End DateNot on fileNot on fileNot on fileNot on file Last Filed Vital Signs Vital SignReadingTime TakenCommentsBlood Cjnhacfu615/6605 3:52 PM EDT Mjohs383409/18/2024 3:52 PM CWSYfpdmjitgro40.3 ??C (99.1 ??F)03/08/2024 3:42 PM ESTRespiratory Qjns647704/28/2020 9:11 AM EDTOxygen Qxcgbtbiug01%09/18/2024 3:52 PM EDTInhaled Oxygen Concentration--Vwutdi321.5 kg (292 lb)09/18/2024 3:52 PM GLCCpshwq856 cm (5' 3 )09/18/2024 3:52 PM EDTBody Mass Index51.7309/18/2024 3:52 PM EDT Plan of Treatment DateTypeDepartmentCare Team (Latest Contact Info)Ndbzzztjdek82/20/2026 3:45 PM ESTOffice Visit [address] [phone] Mars Sow MD [address] [place] [address] check upHealth MaintenanceDue DateLast DoneCommentsVaricella vaccine (+ 2-dose series)01/30/1993HIV ltnzzg3101/30/1995Hepatitis C dvsmpj7101/30/1998 DTaP/Tdap/Td vaccine (1 - Tdap)01/30/1999Hepatitis B vaccine (1 of 3 - 19+ 3- dose series)01/30/1999Pneumococcal 0-49 years Vaccine (1 of 2 - PCV)01/30/1999 A1C test (Diabetic or Prediabetic)5008/21/2023, 09/11/2022Flu vaccine (#1)/03/2020, 02/24/2020, 02/09/2018, Additional history exists COVID-19 Vaccine ( season)5629Mciilovmgra35/08/2025olorectal Cancer Flfzlz8801/30/2025FIT/FOBT: Average risk01/30/2025Fecal-DNA (Cologuard): Average risk01/30/2025Sigmoidoscopy/CT gpmxmivxddlz61/08/2025Depression Kqypttwhll27/27/25160009/18/2024, 5Breast cancer seqppg3111/22/2026 11/22/2024, 09/21/20223809Kpjxvz01/20/87016409/11/2022, 02/04/2021, 08/25/2020, Additional history existsDiabetes ojpaevZxdasubqimee15/28/2024, 09/11/2022HPV vaccine (No Doses Required)CompletedHepatitis A vaccineAged OutNo longer eligible based on patient's age to complete this topicHib vaccineAged OutNo longer eligible based on patient's age to complete this topicMeningococcal (ACWY) vaccineAged OutNo longer eligible based on patient's age to complete this topicMeningococcal B vaccineAged OutNo longer eligible based on patient's age to complete this topicPolio vaccineAged OutNo longer eligible based on patient's age to complete this topic Procedures Procedure NamePriorityDate/TimeAssociated DiagnosisCommentsHM MAMMOGRAPHYRoutine 11/22/2024 9:54 AM EDTHEMOGLOBIN U8PTgjkinm14/28/2024 1:20 PM EDT Pre-diabetes LIPID JQPVOCipilvo21/20/2023 10:32 AM EDT Screening cholesterol level from Last 3 Months or Most Recently Relevant to Health Maintenance Results * HM MAMMOGRAPHY (11/22/2024 9:54 AM EDT)Anatomical RegionLateralityModality Other Narrative Authorizing ProviderResult TypeResult StatusHistorical Provider [facility] MAINTENANCEFinal Result * Hemoglobin A1C (08/21/2023 1:20 PM EDT)ComponentValueRef RangeTest Method Analysis TimePerformed AtPathologist SignatureHemoglobin A1C5.84.0 - 6.0 % 08/21/2023 1:20 PM EDTMERCY LABORATORIESEstimated Avg Bcgficc447ib/dL 08/21/2023 1:20 PM EDTMERCY LABORATORIESComment: The ADA and AACC recommend providing the estimated average glucose result to permit better patient understanding of their HBA1c result. Specimen (Source)Anatomical Location / LateralityCollection Method / Volume Collection TimeReceived TimeBLOOD SPECIMEN / Aegxtkh6608/21/2023 1:20 PM EDT 08/21/2023 1:23 PM EDT Narrative Authorizing ProviderResult TypeResult StatusBilly Back MDCHEMISTRY ORDERABLES Final ResultPerforming OrganizationAddressCity/State/ZIP CodePhone Number [facility] [address] [place] [address], [facility] [phone] [facility] [address] [place] [address], [facility] [phone] * Lipid Panel (09/11/2022 10:32 AM EDT)ComponentValueRef RangeTest Method Analysis TimePerformed AtPathologist NiwzgoyqrJsjzsnyucow594<200 mg/dL 09/11/2022 10:32 AM EDTMERCY LABORATORIESComment: Cholesterol Guidelines: <200 Desirable 200-240 ??Borderline >240 Undesirable HDL54>40 mg/dL09/11/2022 10:32 AM EDTMERCY LABORATORIESComment: HDL Guidelines: <40 Undesirable 40-59 ?Borderline >59 Desirable LDL Akeqzobohcp0188 - 130 mg/dL09/11/2022 10:32 AM EDTMERCY LABORATORIESComment: LDL Guidelines: <100 Desirable 100-129 ?? Near to/above Desirable 130-159 ?? Borderline >159 Undesirable Direct (measured) LDL and calculated LDL are not interchangeable tests. Chol/HDL Ratio3.5<505 10:32 AM EDTMERCY LABORATORIESComment: Qjysjdrrdmvup840<150 mg/dL09/11/2022 10:32 AM EDTMERCY LABORATORIESComment: Triglyceride Guidelines: <150 Desirable 150-199 ??Borderline 200-499 ??High >499 Very high Based on AHA Guidelines for fasting triglyceride, January 2012. Specimen (Source)Anatomical Location / LateralityCollection Method / Volume Collection TimeReceived TimeBLOOD SPECIMEN / Hoxkupo9409/11/2022 10:32 AM EDT 09/11/2022 10:33 AM EDT Narrative Authorizing ProviderResult TypeResult StatusBilly Back MDCHEMISTRY ORDERABLES Final ResultPerforming OrganizationAddressCity/State/ZIP CodePhone Number [facility] [address] [place], [place] [address] [phone] [facility] [employer] [address] [place], [place] [address] [phone] from Last 3 Months or Most Recently Relevant to Health Maintenance Insurance Care Teams Team MemberRelationshipSpecialtyStart DateEnd Date Back, MD Mars [address] [place], [place] [id number] PCP - GeneralInternal Lthtkkpy59/2/11
--- OUTSIDE RECORDS SUMMARY | 2025-04-10 21:18 | XMS_ITS | Clinical Summary ---
Author Organization [facility] Address [id number] [address] [place] [address] Care Team Providers Care Food Service Cashier Name Role Phone Mars Sow MD Primary Care Provider [phone] Allergies Active AllergyReactionsCriticalityNoted DateCommentsAce InhibitorsAnaphylaxis, Rash,GkjjkmteWkhg65/06/2020 Other Reaction(s): Swelling of throat Angioedema Back of throat could still breath FqjadjwcusBxypjdbbkveXdid06/14/2023 Medications MedicationSigDispense QuantityRefillsLast FilledStart DateEnd DateStatus albuterol-budesonide 90-80 mcg/actuation HFA aerosol inhaler 1 puff(s), Inhalation, QID for wheezing, 18 gram, Refill(s) ctive busPIRone (BUSPAR) 7.5 mg split tablet Take 2 split tablet (15 mg total) by mouth in the morning and 2 split tablet (15 mg total) before bedtime.09/29/2019Active amLODIPine (NORVASC) 10 mg tablet Take 1 tablet (10 mg total) by mouth in the morning.04/22/2020Active ascorbic acid, vitamin C, (VITAMIN C) 250 mg tablet Take 1 tablet (250 mg total) by mouth in the morning.Active atenoloL (TENORMIN) 25 mg tablet Take 1 tablet (25 mg total) by mouth in the morning.04/22/2020Active cyclobenzaprine (FLEXERIL) 10 mg tablet Take 1 tablet (10 mg total) by mouth in the morning.02/12/2023ctive DULoxetine (CYMBALTA) 60 mg capsule Take 2 capsules (120 mg total) by mouth in the morning.09/27/2022ctive fluticasone propionate (FLONASE) 50 mcg/actuation nasal spray 1 spray as needed.04/30/2022ctive guaiFENesin (MUCINEX) 600 mg tablet extended release 12hr Take 2 tablets (1,200 mg total) by mouth as needed.05/10/2020ctive hydrOXYzine (ATARAX) 25 mg tablet Take 1 tablet (25 mg total) by mouth as needed.09/13/2022ctive ibuprofen (MOTRIN) 800 mg tablet Take 1 tablet (800 mg total) by mouth in the morning and 1 tablet (800 mg total) before bedtime.03/04/2023ctive ondansetron (ZOFRAN) 4 mg tablet Take 1 tablet (4 mg total) by mouth as needed.01/27/2023ctive pantoprazole (PROTONIX) 40 mg EC tablet Take 1 tablet (40 mg total) by mouth in the morning.10/19/2022ctive montelukast (SINGULAIR) 10 mg tablet Take 1 tablet (10 mg total) by mouth nightly.Active baclofen (LIORESAL) 10 mg tablet Take 1 tablet (10 mg total) by mouth as needed for muscle spasms.Active blank primrose/linoleic/g-lenic (PRIMROSE OIL ORAL) Take by mouth.Active DRESS,CLFPVAX-KYRP-TDHFIBI-CMC TOP Apply topically.Active psyllium (METAMUCIL) powder Take 1 packet by mouth in the morning.Active iron,carb/vit C/vit B12/folic (IRON 100 PLUS ORAL) Take 20 mg by mouth.Active cholecalciferol, vitD3,/vit K2 (VITAMIN D3-VITAMIN K2 ORAL) Take by mouth.Active ctioanqq-hwqn-US-calcium &mins (THERAGRAN-M) 9 mg iron-400 mcg tablet Take 1 tablet by mouth in the morning.Active Family History Medical HistoryRelationNameCommentsHeart attackBrotherHeart attackFatherLeukemia FatherLung cancerFatherSkin cancerFatherCancerMaternal GrandmotherLymphoma Maternal GrandmotherLung cancerMaternal UncleBreast cancerMotherDiabetesMother RelationNameStatusCommentsBrotherFatherDeceasedMaternal GrandmotherMaternal UncleMotherDeceased Social History Tobacco UseTypesPacks/DayYears UsedDateSmoking Tobacco: FiqwpnObpmfkgjrp2Orgs: 2014Smokeless Tobacco: Never Tobacco Cessation:Counseling Given: Not Answered Alcohol UseStandard Drinks/WeekCommentsNot Asked0 (1 standard drink = 0.6 oz pure alcohol)rarelyChildcareAnswerDate RflbktvlHkmvwpwvtBswsdkr36/12/2019 EmploymentAnswerDate RwbywxfhBdtwxmikvaXzpictz14/12/2019Hunger ScreeningAnswer Date RecordedWithin the past 12 months we worried whether our food would run out before we got money to buy more.Never True06/27/2023Within the past 12 months the food we bought just didn't last and we didn't have money to get more.Never True06/27/2023urpose - LifeAnswerDate RecordedPurpose and direction in life Gubnsjg84/11/2021CommentsUnknownSex and Gender InformationValueDate RecordedSex Assigned at BirthNot on fileLegal DksRdbrmx06/30/2017 2:04 AM EST Gender IdentityNot on fileSexual OrientationNot on file Last Filed Vital Signs Vital SignReadingTime TakenCommentsBlood Pressure--Pulse--Temperature-- Respiratory Rate--Oxygen Saturation--Inhaled Oxygen Concentration--Smaekd476.4 kg (294 lb)06/27/2023 12:11 PM QWVNtluki621 cm (5' 3 )06/27/2023 12:11 PM EST Body Mass Index52.0806/27/2023 12:11 PM EST Plan of Treatment Health MaintenanceDue DateLast DoneCommentsDepression Crmjxyzlt26/08/1992 DTaP,Tdap and Td Vaccines (1 - Tdap)01/30/1999Pap Smear01/30/2001Adult BMI Kegeddohq38/04/62638506/27/2023Tobacco Dfubzzncr37Influenza Qbsyrvv85/03/2020, 02/24/2020, 02/09/2018, Additional history exists Medical Devices Not on file Insurance Care Teams Team MemberRelationshipSpecialtyStart DateEnd Date Back, MD Mars [address] [place] [id number] PCP - GeneralInternal Medicine09/13/16
--- OUTSIDE RECORDS SUMMARY | 2025-04-10 21:18 | XMS_ITS | Encounter Summary ---
Author Organization [facility] Address [address] [place] [address] Care Team Providers Care Retort Fireman Name Role Phone John Sow MD Primary Care Provider [phone] Encounter Details DateTypeDepartmentCare Team (Latest Contact Info)Rwhbntpdkkj69/17/2025Bamboo flowsheet [facility] [address] [place] [address] Markus Vega DO [address] [facility] [place] [address] Social History Tobacco UseTypesPacks/DayYears UsedDateSmoking Tobacco: FormerCigarettesAlcohol UseStandard Drinks/WeekCommentsYes0 (1 standard drink = 0.6 oz pure alcohol) Occasional drinkerCommentsNoSex and Gender InformationValueDate Recorded Sex Assigned at TztuhOpvmwc12/12/2023 11:42 AM EDTLegal FwdRuzrzn45/15/2023 11:47 PM EDTGender JnkmtusqVwvszm74/12/2023 11:42 AM EDTSexual Orientation Nijvwkhb32/12/2023 11:42 AM EDTdocumented as of this encounter Plan of Treatment DateTypeDepartmentCare Team (Latest Contact Info)Rsznnvrplkz57/24/2026 1:00 PM ESTAncillary Procedure [facility] [address] [place] [address] [place] [address] documented as of this encounter Visit Diagnoses Not on filedocumented in this encounter Care Teams Team MemberRelationshipSpecialtyStart DateEnd Date Back, MD John [address] [place] [id number] PCP - GeneralFamily Medicine10/05/22documented as of this encounter
== END 2025-04-10 21:12 | disposition home or self-care (01) ==
LOC: LAB 21:11
PROVIDERS: PCP Internal Medicine; Visit Provider Obstetrics & Gynecology
DX: Z01.419 Encounter for gynecological examination (general) (routine) without abnormal findings (principal)
CPT/HCPCS: 88175